=== PATIENT | female | born 1990 | race Caucasian/White ===

== ENCOUNTER 2018-02-07 06:30 | Emergency (ER) | payer OTHER, SELFPAY ==
[2018-02-07] MEDS ORDERED: ACETAMINOPHEN 500 MG TAB ONE (06:58)
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
[2018-02-07 12:13] LABS: Urine Blood NEGATIVE (NEG); Urine Glucose NEGATIVE (NEG); Urine Protein NEGATIVE (NEG); Urine Specific Gravity >1.030 (1.005-1.030); Urine pH 5.5 (5.0-7.0)
[2018-02-07 12:51] LABS: Barbiturates NEGATIVE (NEGATIVE); Benzodiazepines NEGATIVE (NEGATIVE); Cocaine POSITIVE (NEGATIVE); METHAMPHETAM NEGATIVE (NEGATIVE); Methadone NEGATIVE (NEGATIVE); Opiates NEGATIVE (NEGATIVE); Phencyclidine NEGATIVE (NEGATIVE); THC Cannibis NEGATIVE (NEGATIVE)
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
[2018-02-07] MEDS ORDERED: AZITHROMYCIN 250 MG TAB ONE (13:52)
[2018-02-07] MEDS ORDERED: CEFTRIAXONE 250 MG/VIAL ONE (13:52)
[2018-02-07] MEDS ORDERED: WATER FOR INJ,STERILE 10 ML ONE (13:53)
== END 2018-02-07 14:06 | disposition home or self-care (01) ==
LOC: ER 06:30
DX: Z04.41 Encounter for examination and observation following alleged adult rape (principal); F31.9 Bipolar disorder, unspecified; G40.909 Epilepsy, unspecified, not intractable, without status epilepticus
CPT/HCPCS: 36415; 70450; 80307; 80320; 81003; 81025; 96372; 99284; J0696

== ENCOUNTER 2018-10-04 16:03 | Emergency (ER) | payer OTHER, SELFPAY ==
--- OUTSIDE RECORDS SUMMARY | 2018-10-04 16:10 | XMS REPORT ---
:1990 [facility] Address [address] [place] [address] Dr. Sandhu. [address] [place] [id number] Care Team Providers Name Role Phone Unavailable Unavailable Unavailable Problems This patient has no known problems. Allergies, Adverse Reactions, Alerts This patient has no known allergies or adverse reactions. Medications This patient has no known medications.
[2018-10-04 17:49] LABS: Absolute Lymphocytes (CBC) 2.3 K/uL (0.7-4.9); Absolute Monocytes 0.7 K/uL (0.1-1.3); Absolute Neutrophil 5.4 K/uL (1.8-8.0); Basophils % 0.9 % (0-1.3); Eosinophils % 3.2 % (0-4.4); Hematocrit 39.6 % (36.0-45.0); Lymphocytes % 26.6 % (15.3-44.8); MPV 8.8 fL (7.6-11.3); Monocytes % 7.9 % (3.3-12.3); RBC Red Blood Cell Count 4.13 M/uL (3.86-4.86)
[2018-10-04 18:18] LABS: Urine Blood TRACE (NEG); Urine Glucose NEGATIVE (NEG); Urine Protein NEGATIVE (NEG); Urine Specific Gravity 1.025 (1.005-1.030)
[2018-10-04 18:26] LABS: BUN Blood Urea Nitrogen 13 mg/dL (7-18); Bicarbonate 27 mmol/L (21-32); Glucose Level 81 mg/dL (74-106); HCG, Quantitative 14797 mIU/mL (1-3); Potassium 3.6 mmol/L (3.5-5.1); Sodium Level 138 mmol/L (136-145)
--- NOTE | 2018-10-04 19:13 | RAD REPORT ---
EXAM DESCRIPTION: US - Matter Gordo Tm 1 - 10/04/2018 6:52 pm CLINICAL HISTORY: with abdominal pain and vaginal bleeding COMPARISON: None. FINDINGS: The uterus 8 x 4 x 4 centimeters. A gestational sac is present within the endometrium. Wi thin this is a yolk sac and pole with a crown-rump length 0.7 millimeters. Cardiac activity 138 beats per minute. Small subchorionic bleed Neither ovary was seen. An adnexal mass is not noted. No significant free fluid is seen. IMPRESSION: Single live intrauterine with an estimated gestational age 6 weeks 4 days JUAN FRANCISCO 05/26/2019 Small subchorionic bleed
--- NOTE | 2018-10-04 19:19 | EDPHYS ---
Physician Documentation [facility] Name: Gwen Cheema Age: 28 yrs Sex: Female : 1990 Arrival Date: 10/04/2018 Time: 16:09 Bed 18 Private MD: ANDREY Physician Soy Dave HPI: 10/04 19:31 This 28 yrs old Female presents to ER via Ambulatory with complaints of kb Vaginal Bleeding, + Preg <12wks. 19:31 The patient presents to the emergency department with vaginal bleeding, described as kb spotting. The estimated gestational age is 7 weeks. course: care: none, Leakage of Fluid: none appreciated, Ultrasound: the patient has not had an ultrasound, Risk/complications: no obvious risks or complications are appreciated. Previous pregnancies: in previous pregnancies patient has had. Associated signs and symptoms: Pertinent positives: vaginal bleeding. The patient has not experienced similar symptoms in the past. The patient has not recently seen a physician. Pt reports spotting yesterday after doing a lot of work, bending, reaching, etc. States she stopped bleeding at 2200 yesterday. No symptoms at this time.. 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 - Social history:: Smoking status: Patient uses tobacco products. - Ebola Screening: : No symptoms or risks identified at this time. ROS: 19:31 Constitutional: Negative for fever, chills, and weight loss, Cardiovascular: Negative kb for chest pain, palpitations, and edema, Respiratory: Negative for shortness of breath, cough, wheezing, and pleuritic chest pain, Abdomen/GI: Negative for abdominal pain, nausea, vomiting, diarrhea, and constipation, Back: Negative for injury and pain, : Negative for injury, bleeding, discharge, and swelling, MS/Extremity: Negative for injury and deformity, Skin: Negative for injury, rash, and discoloration, Neuro: Negative for headache, weakness, numbness, tingling, and seizure. Exam: 19:31 Constitutional: This is a well developed, well nourished patient who is awake, alert, kb and in no acute distress. Head/Face: Normocephalic, atraumatic. Neck: Trachea midline, no thyromegaly or masses palpated, and no cervical lymphadenopathy. Supple, full range of motion without nuchal rigidity, or vertebral point tenderness. No Meningismus. Chest/axilla: Normal chest wall appearance and motion. Nontender with no deformity. No lesions are appreciated. Cardiovascular: Regular rate and rhythm with a normal S1 and S2. No gallops, murmurs, or rubs. Normal PMI, no JVD. No pulse deficits. Respiratory: Lungs have equal breath sounds bilaterally, clear to auscultation and percussion. No rales, rhonchi or wheezes noted. No increased work of breathing, no retractions or nasal flaring. Abdomen/GI: Soft, non-tender, with normal bowel sounds. No distension or tympany. No guarding or rebound. No evidence of tenderness throughout. Skin: Warm, dry with normal turgor. Normal color with no rashes, no lesions, and no evidence of cellulitis. MS/ Extremity: Pulses equal, no cyanosis. Neurovascular intact. Full, normal range of motion. Neuro: Awake and alert, GCS 15, oriented to person, place, time, and situation. Cranial nerves II-XII grossly intact. Motor strength 5/5 in all extremities. Sensory grossly intact. Cerebellar exam normal. Normal gait. Vital Signs: 16:11 BP 123 / 67; Pulse 82; Resp 17; Temp 98.1; Pulse Ox 100% on R/A; Weight 44.91 kg; aj Height 5 ft. 5 in. (165.10 cm); 18:37 BP 111 / 80; Pulse 64; Resp 17; Pulse Ox 99% on R/A; jb1 19:20 BP 115 / 83; Pulse 67; Resp 16 S; Temp 98.4(O); Pulse Ox 100% on R/A; cc3 16:11 Body Mass Index 16.47 (44.91 kg, 165.10 cm) aj MDM: 17:05 Patient medically screened. kb 19:18 Data reviewed: vital signs, nurses notes. Data interpreted: Pulse oximetry: on room air kb is 99 %. Interpretation: normal. Counseling: I had a detailed discussion with the patient and/or guardian regarding: the historical points, exam findings, and any diagnostic results supporting the discharge/admit diagnosis, lab results, radiology results, the need for outpatient follow up, a family practitioner, an OB/Gyne specialist, to return to the emergency department if symptoms worsen or persist or if there are any questions or concerns that arise at home. 10/04 17:17 Order name: Quantitative Hcg; Complete Time: 18:26 kb 10/04 17:17 Order name: Abo/rh Typing; Complete Time: 18:52 kb 10/04 17:17 Order name: Basic Metabolic Panel; Complete Time: 18:26 kb 10/04 17:17 Order name: CBC with Diff; Complete Time: 17:59 kb 10/04 17:51 Order name: Urine Dipstick--Ancillary (enter results); Complete Time: 18:20 bd 10/04 17:51 Order name: Urine --Ancillary (enter results); Complete Time: 18:20 bd 10/04 17:17 Order name: Urine Test (obtain specimen); Complete Time: 17:45 kb 10/04 17:17 Order name: IV Saline Lock; Complete Time: 17:45 kb 10/04 17:17 Order name: Labs collected and sent; Complete Time: 17:45 kb 10/04 17:17 Order name: NPO; Complete Time: 17:45 kb 10/04 17:17 Order name: Urine Dipstick-Ancillary (obtain specimen); Complete Time: 17:45 kb 10/04 18:53 Order name: Matter Eval Tm 1; Complete Time: 19:18 EDMS Administered Medications: No medications were administered Disposition: 10/04/18 19:19 Discharged to Home. Impression: Less than 8 weeks gestation of , Threatened . - Condition is Stable. - Discharge Instructions: First Trimester of , [id number], Threatened Miscarriage, [id number]. - Medication Reconciliation Form, Thank You Letter, Antibiotic Education, Prescription Opioid Use, Work release form form. - Follow up: Emergency Department; When: As needed; Reason: Worsening of condition. Follow up: Private Physician; When: 2 - 3 days; Reason: Recheck today's complaints, Continuance of care, Re-evaluation by your physician. Signatures: Dispatcher [employer] EDOH Nicolasa Akins, CLEAN IN PLACES OPERATOR-C CLEAN IN PLACES OPERATOR-Ckb Arabella Barros, RN RN Yesenia Rodriguez RN RN Alis Field cc3 Corrections: (The following items were deleted from the chart) 18:53 18:30 Transvaginal Ob+US.RAD.BRZ ordered. [facility] 19:48 19:19 10/04/2018 19:19 Discharged to Home. Impression: Less than 8 weeks gestation of cc3 ; Threatened . Condition is Stable. Forms are Medication Reconciliation Form, Thank You Letter, Antibiotic Education, Prescription Opioid Use. Follow up: Emergency Department; When: As needed; Reason: Worsening of condition. Follow up: Private Physician; When: 2 - 3 days; Reason: Recheck today's complaints, Continuance of care, Re-evaluation by your physician. kb
--- NOTE | 2018-10-04 19:19 | ER ---
Nurse's Notes [facility] Name: Gwen Cheema Age: 28 yrs Sex: Female : 1990 Arrival Date: 10/04/2018 Time: 16:09 Bed 18 Private MD: Diagnosis: Less than 8 weeks gestation of ;Threatened Presentation: 10/04 16:10 Presenting complaint: Patient states: Vaginal spotting that stopped this AM. Patient aj states "I need a work note.". Transition of care: patient was not received from another setting of care. Onset of symptoms was October 04, 2018. Care prior to arrival: None. 16:10 Method Of Arrival: Ambulatory aj 16:10 Acuity: MIS 3 aj 17:35 Risk Assessment: Do you want to hurt yourself or someone else? Patient reports no sv desire to harm self or others. Initial Sepsis Screen: Does the patient meet any 2 criteria? No. Patient's initial sepsis screen is negative. Does the patient have a suspected source of infection? No. Patient's initial sepsis screen is negative. Triage Assessment: 16:11 General: Appears in no apparent distress. comfortable, Behavior is calm, cooperative. aj Pain: Denies pain. Neuro: Level of Consciousness is awake, alert, obeys commands, Oriented to person, place, time, situation, Appropriate for age. Respiratory: Airway is patent Respiratory effort is even, unlabored, Respiratory pattern is regular, symmetrical. : No signs and/or symptoms were reported regarding the genitourinary system. : Reports vaginal bleeding that is spotty. Derm: Skin is intact, is healthy with good turgor, Skin is pink, warm \\T\\ dry. normal. 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 - Social history:: Smoking status: Patient uses tobacco products. - Ebola Screening: : No symptoms or risks identified at this time. Screenin:35 Abuse screen: Denies threats or abuse. Denies injuries from another. Nutritional sv screening: No deficits noted. Tuberculosis screening: No symptoms or risk factors identified. Fall Risk None identified. Assessment: 17:30 General: Appears in no apparent distress. comfortable, slender, well developed, sv Behavior is calm, cooperative, appropriate for age. Pain: Denies pain. Neuro: Level of Consciousness is awake, alert, obeys commands, Oriented to person, place, time, situation, Moves all extremities. Full function Gait is steady. Respiratory: Respiratory effort is even, unlabored, Respiratory pattern is regular, symmetrical. : Reports vaginal bleeding that is spotty, since yesterday'. Derm: Skin is pink, warm \\T\\ dry. Musculoskeletal: Range of motion: intact in all extremities. 19:10 Reassessment: Patient appears in no apparent distress at this time. Patient and/or cc3 family updated on plan of care and expected duration. Pain level reassessed. Patient is alert, oriented x 3, equal unlabored respirations, skin warm/dry/pink. 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 With IV cannula gauge 20 at the right ACV saline locked. Patient denies pain at this time. Patient states feeling better. Patient states symptoms have improved. 19:30 Reassessment: Patient appears in no apparent distress at this time. Patient and/or cc3 family updated on plan of care and expected duration. Pain level reassessed. Patient is alert, oriented x 3, equal unlabored respirations, skin warm/dry/pink. SARA Akins discharged the patient home, no prescription given. IV cannula removed and patient left ER vitally stable and ambulatory with her family. Patient denies pain at this time. Patient states feeling better. Patient states symptoms have improved. Vital Signs: 16:11 BP 123 / 67; Pulse 82; Resp 17; Temp 98.1; Pulse Ox 100% on R/A; Weight 44.91 kg; aj Height 5 ft. 5 in. (165.10 cm); 18:37 BP 111 / 80; Pulse 64; Resp 17; Pulse Ox 99% on R/A; jb1 19:20 BP 115 / 83; Pulse 67; Resp 16 S; Temp 98.4(O); Pulse Ox 100% on R/A; cc3 16:11 Body Mass Index 16.47 (44.91 kg, 165.10 cm) ED Course: 16:09 Patient arrived in ED. tw3 16:11 Triage completed. aj 16:11 Arm band placed on left wrist. aj 17:05 Nicolasa Akins FNP-C [facility]. kb 17:05 Soy Dave MD is Attending Physician. kb 17:17 Arabella Barros, RN is Primary Nurse. sv 17:35 Patient has correct armband on for positive identification. Bed in low position. Call sv light in reach. Door closed. Head of bed. 17:35 Initial lab(s) drawn, by me, sent to lab. Inserted saline lock: 20 gauge in right sv antecubital area, using aseptic technique. Blood collected. Flushed right antecubital with 5 ml normal saline. 17:44 Urine collected: clean catch specimen, clear. sv 18:52 Ultrasound completed. hr 18:53 Matter Eval Tm 1 In Process Unspecified. EDMS 19:09 Report given to Alis GALINDO. sv 19:30 No provider procedures requiring assistance completed. IV discontinued, intact, cc3 bleeding controlled, No redness/swelling at site. Pressure dressing applied. 19:33 Primary Nurse role handed off by Arabella Barros RN Administered Medications: No medications were administered Outcome: 19:19 Discharge ordered by . kb 19:30 Discharged to home ambulatory, with family. cc3 19:30 Condition: stable 19:30 Discharge instructions given to patient, Instructed on discharge instructions, follow up and referral plans. Demonstrated understanding of instructions, follow-up care. 19:48 Patient left the ED. cc3 Signatures: Dispatcher [employer] EDMS Boogie Butler jb1 Nicolasa Akins FNP-C FNP-Arabella Treadwell RN Yesenia Graves RN RN aj Rod, Haley hr Wade, Tia tw3 Alis Key cc3 Corrections: (The following items were deleted from the chart) 0611 02:18 06/10 19:10 Reassessment: Patient appears in no apparent distress at this time. Patient cc3 and/or family updated on plan of care and expected duration. Pain level reassessed. Patient is alert, oriented x 3, equal unlabored respirations, skin warm/dry/pink. Received this female patient from morning shift MATEO Bell as a case of vaginal bleeding but no active bleeding right now. With IV cannula gauge 20 at the right ACV saline locked. Patient denies pain at this time. Patient states feeling better. Patient states symptoms have improved. cc3
== END 2018-10-04 19:48 | disposition home or self-care (01) ==
LOC: ER 16:03
DX: O20.0 Threatened abortion (principal); Z3A.01 Less than 8 weeks gestation of pregnancy
CPT/HCPCS: 36415; 76801; 80048; 81003; 81025; 84702; 85025; 86900; 86901; 99284

== ENCOUNTER 2018-11-01 22:21 | Emergency (ER) | payer OTHER ==
--- OUTSIDE RECORDS SUMMARY | 2018-11-01 22:22 | XMS REPORT ---
:1990 Author Organization [facility] Address [address] [place] [address] Dr. Sandhu[address] [place] [id number] Care Team Providers Name Role Phone Unavailable Unavailable Unavailable Problems This patient has no known problems. Allergies, Adverse Reactions, Alerts This patient has no known allergies or adverse reactions. Medications This patient has no known medications.
[2018-11-01] MEDS ORDERED: LIDOCAINE 1% MPF 5 ML VIAL ONE (23:29)
--- NOTE | 2018-11-02 00:12 | ER ---
Nurse's Notes [facility] Name: Gwen Cheema Age: 28 yrs Sex: Female : 1990 Arrival Date: 11/01/2018 Time: 22:24 Bed 24 [facility] MD: Diagnosis: Cutaneous abscess of buttock Presentation: 11/01 22:49 Presenting complaint: Patient states: abcess on my butt cheek since 4 days ago, and I ca1 am 10 wks . Transition of care: patient was not received from another setting of care. Onset of symptoms was November 01, 2018. Risk Assessment: Do you want to hurt yourself or someone else? Patient reports no desire to harm self or others. Initial Sepsis Screen: Does the patient meet any 2 criteria? No. Patient's initial sepsis screen is negative. Does the patient have a suspected source of infection? No. Patient's initial sepsis screen is negative. Care prior to arrival: None. 22:49 Method Of Arrival: Ambulatory ca1 22:49 Acuity: MIS 3 ca1 Triage Assessment: 22:52 General: Appears in no apparent distress. comfortable, Behavior is calm, cooperative, ca1 appropriate for age. Pain: Complains of pain in left gluteus flaco Pain currently is 7 out of 10 on a pain scale. Pain began 2-3 days ago. 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 - Social history:: Smoking status: Patient uses tobacco products, smokes one-half pack cigarettes per day. - Ebola Screening: : Patient negative for fever greater than or equal to 101.5 degrees Fahrenheit, and additional compatible Ebola Virus Disease symptoms Patient denies exposure to infectious person Patient denies travel to an Ebola-affected area in the 21 days before illness onset No symptoms or risks identified at this time. - Family history:: not pertinent. - Hospitalizations: : No recent hospitalization is reported. Screenin:54 Abuse screen: Denies threats or abuse. Denies injuries from another. Nutritional ca1 screening: No deficits noted. Tuberculosis screening: No symptoms or risk factors identified. Fall Risk None identified. Assessment: 22:54 General: Appears in no apparent distress. comfortable, Behavior is calm, cooperative, ca1 appropriate for age. Pain: Complains of pain in left gluteus flaco Pain currently is 7 out of 10 on a pain scale. Pain began 2-3 days ago. Neuro: Level of Consciousness is awake, alert, obeys commands, Oriented to person, place, time, situation, Appropriate for age. Cardiovascular: Heart tones S1 S2 present Capillary refill < 3 seconds Patient's skin is warm and dry. Respiratory: Airway is patent Respiratory effort is even, unlabored, Respiratory pattern is regular, symmetrical, Breath sounds are clear bilaterally. GI: Abdomen is flat, non-distended, Bowel sounds present X 4 quads. Abd is soft and non tender X 4 quads. : No deficits noted. No signs and/or symptoms were reported regarding the genitourinary system. EENT: No deficits noted. No signs and/or symptoms were reported regarding the EENT system. Derm: Skin is intact, is healthy with good turgor, Skin is pink, warm \T\ dry. Musculoskeletal: Circulation, motion, and sensation intact. Capillary refill < 3 seconds, Range of motion: intact in all extremities. 11/02 00:02 Reassessment: Patient appears in no apparent distress at this time. Patient is alert, ca1 oriented x 3, equal unlabored respirations, skin warm/dry/pink. Vital Signs: 11/01 22:52 BP 124 / 85; Pulse 87; Resp 18 S; Temp 98.5(O); Pulse Ox 100% on R/A; Weight 49.9 kg ca1 (R); Height 5 ft. 5 in. (165.10 cm) (R); Pain 7/10; 11/02 00:02 BP 113 / 73; Pulse 81; Resp 16 S; Temp 97.9(TE); Pulse Ox 100% on R/A; ca1 11/01 22:52 Body Mass Index 18.30 (49.90 kg, 165.10 cm) ca1 ED Course: 11/01 22:24 Patient arrived in ED. ag3 22:39 Paul Floyd, MATEO is Primary Nurse. rv 22:41 Nabil Lopez MD is Attending Physician. rn 22:51 Triage completed. ca1 22:52 Arm band placed on right wrist. ca1 22:54 Patient has correct armband on for positive identification. Placed in gown. Bed in low ca1 position. Call light in reach. Side rails up X 1. Pulse ox on. NIBP on. Warm blanket given. 22:57 Primary Nurse role handed off by Paul Floyd RN ca1 22:57 Radha Fishman RN is Primary Nurse. ca1 11/02 00:04 Assist provider with I \T\ D: of an abscess on left Gluteal area Set up I\T\D tray. ca 1 Performed by Nabil Lopez MD Culture sent to lab. Wound packed. iodoform gauze, Dressing with 4X4s, tape Patient tolerated well. Patient did not have IV access during this emergency room visit. 00:17 Wound Culture Sent. ca1 Administered Medications: 00:03 Drug: Lidocaine (1 %) 1 vials {Note: Infiltrated by Dr. Lopez.} Volume: 5 ml; Route: ca1 Infiltration; Outcome: 00:08 Discharge ordered by . rn 00:18 Discharged to home ambulatory, with significant other. ca1 00:18 Condition: stable 00:18 Discharge instructions given to patient, Instructed on discharge instructions, follow up and referral plans. medication usage, Demonstrated understanding of instructions, follow-up care, medications, Prescriptions given X 1. 00:18 Patient left the ED. ca1 Signatures: Nabil Lopez MD MD rn Vicente, Ronaldo, RN RN Lissett Sequeira 3 Radha Fishman RN RN ca1 Corrections: (The following items were deleted from the chart) 11/01 22:58 22:49 Presenting complaint: Patient states: I have abcess on my but cheek since 4 days ca1 ago ca1
--- NOTE | 2018-11-02 00:12 | EDPHYS ---
Physician Documentation [facility] Name: Gwen Cheema Age: 28 yrs Sex: Female : 1990 Arrival Date: 11/01/2018 Time: 22:24 Bed 24 Private MD: ED Physician Nabil Lopez HPI: 11/02 00:03 This 28 yrs old Female presents to ER via Ambulatory with complaints of rn Abscess. 00:03 The patient presents with an abscess of the buttocks. Description: erythematous, rn fluctuant, swollen, warm. 00:04 Onset: The symptoms/episode began/occurred 4 day(s) ago. Possible cause(s): unknown. rn Associated signs and symptoms: Pertinent positives: swelling, Pertinent negatives: fever. Modifying factors: the symptoms are alleviated by nothing, the symptoms are aggravated by squeezing the lesion and expressing the contents, touching. Severity of symptoms: At their worst the symptoms were moderate, in the emergency department the symptoms are unchanged. The patient has not experienced similar symptoms in the past. Reports swelling to left buttocks, getting worse, not able to pop it on her own, no fever, is 10 weeks .. 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 - Social history:: Smoking status: Patient uses tobacco products, smokes one-half pack cigarettes per day. - Ebola Screening: : Patient negative for fever greater than or equal to 101.5 degrees Fahrenheit, and additional compatible Ebola Virus Disease symptoms Patient denies exposure to infectious person Patient denies travel to an Ebola-affected area in the 21 days before illness onset No symptoms or risks identified at this time. - Family history:: not pertinent. - Hospitalizations: : No recent hospitalization is reported. ROS: 11/02 00:04 Constitutional: Negative for fever, chills, and weight loss, Skin: + abscess to left rn buttocks Exam: 00:04 Constitutional: This is a well developed, well nourished patient who is awake, alert, rn and in no acute distress. Skin: Warm, dry, + 3cm area of fluctuance and erythema, no surrounding cellulitis. MS/ Extremity: Pulses equal, no cyanosis. Neurovascular intact. Full, normal range of motion. Equal circumference. Vital Signs: 11/01 22:52 BP 124 / 85; Pulse 87; Resp 18 S; Temp 98.5(O); Pulse Ox 100% on R/A; Weight 49.9 kg ca1 (R); Height 5 ft. 5 in. (165.10 cm) (R); Pain 7/10; 11/02 00:02 BP 113 / 73; Pulse 81; Resp 16 S; Temp 97.9(TE); Pulse Ox 100% on R/A; ca1 11/01 22:52 Body Mass Index 18.30 (49.90 kg, 165.10 cm) ca1 Procedures: 00:04 I \T\ D: Incision and drainage was performed for an abscess of the left buttocks Prepped rn with Betadine, Anesthetized with 5 ml's 1% Lidocaine w/ Epi. Incised with #10 blade. Drained moderate amount purulent fluid. Packed with iodoform gauze, Dressing: sterile 4x4 gauze, the patient tolerated the procedure well. MDM: 11/01 22:41 Patient medically screened. rn 11/02 00:04 Differential diagnosis: abscess. Data reviewed: vital signs, nurses notes, and as a rn result, I will discharge patient. 00:07 Counseling: I had a detailed discussion with the patient and/or guardian regarding: the rn historical points, exam findings, and any diagnostic results supporting the discharge/admit diagnosis, the need for outpatient follow up, to return to the emergency department if symptoms worsen or persist or if there are any questions or concerns that arise at home. Response to treatment: the patient's symptoms have markedly improved after treatment, and as a result, I will discharge patient. Special discussion: I discussed with the patient/guardian in detail that at this point there is no indication for admission to the hospital. It is understood, however, that if the symptoms persist or worsen the patient needs to return immediately for re-evaluation. 11/02 00:05 Order name: Wound Culture ca1 11/01 23:30 Order name: Incision \T\ Drainage Setup; Complete Time: 23:31 rn Administered Medications: 00:03 Drug: Lidocaine (1 %) 1 vials {Note: Infiltrated by Dr. Lopez.} Volume: 5 ml; Route: ca1 Infiltration; Disposition: 11/02/18 00:08 Discharged to Home. Impression: Cutaneous abscess of buttock. - Condition is Stable. - Discharge Instructions: Skin Abscess, Incision and Drainage, Wound Packing. - Prescriptions for Keflex 500 mg Oral Capsule - take 1 capsule by ORAL route every 12 hours for 10 days; 20 capsule. - Medication Reconciliation Form, Thank You Letter, Antibiotic Education, Prescription Opioid Use form. - Follow up: Private Physician; When: As needed; Reason: Recheck today's complaints, Re-evaluation by your physician. - Problem is new. - Symptoms have improved. Signatures: Dispatcher [employer] EDNabil Henry MD MD rn Acob, MATEO Garcia RN ca1 Corrections: (The following items were deleted from the chart) 00:18 00:08 11/02/2018 00:08 Discharged to Home. Impression: Cutaneous abscess of buttock. ca1 Condition is Stable. Forms are Medication Reconciliation Form, Thank You Letter, Antibiotic Education, Prescription Opioid Use. Follow up: Private Physician; When: As needed; Reason: Recheck today's complaints, Re-evaluation by your physician. Problem is new. Symptoms have improved. rn
== END 2018-11-02 00:18 | disposition home or self-care (01) ==
LOC: ER 22:21
PROC: 0J990ZZ Drainage of Buttock Subcutaneous Tissue and Fascia, Open Approach (ICD-10-PCS; principal; 2018-11-01)
DX: O26.891 Other specified pregnancy related conditions, first trimester (principal); L02.31 Cutaneous abscess of buttock; O99.341 Other mental disorders complicating pregnancy, first trimester; F31.9 Bipolar disorder, unspecified; F41.9 Anxiety disorder, unspecified; Z3A.10 10 weeks gestation of pregnancy
CPT/HCPCS: 87070; 87205; 99284

== ENCOUNTER 2021-10-09 22:22 | Emergency (ER) | payer OTHER ==
--- OUTSIDE RECORDS SUMMARY | 2021-10-09 22:26 | XMS REPORT | Continuity of Care Document ---
:1990 Author Organization [facility] t Address [address] [place] [address] Care Team Providers Name Role Phone Akhil MCMAHON Primary Care Physician Unavailable SANDY LYLE Attending Clinician Unavailable AMAYA, S Attending Clinician Unavailable Amaya PAC, S Attending Clinician Doctor Unassigned, Name Attending Clinician Unavailable HORTENCIA Attending Clinician Unavailable Opal BRADLEY Attending Clinician Unavailable BERTHA Attending Clinician Unavailable MATTHEW NELSON Attending Clinician Unavailable MARIA ALEJANDRA DONG Attending Clinician Unavailable Briana WORKMAN Attending Clinician Unavailable Yoni CLARK Attending Clinician Unavailable Opal THRASHER Attending Clinician Unavailable Vinay PEREZ Attending Clinician Unavailable Vinay PEREZ Attending Clinician Unavailable Oma CABRERA Attending Clinician Unavailable JUANIS MORRISON Attending Clinician Unavailable Vinay GLOVER Attending Clinician Unavailable SANDY LYLE Admitting Clinician Unavailable AMAYA, S Admitting Clinician Unavailable BERTHA Admitting Clinician Unavailable JI S Admitting Clinician Unavailable Payers Payer Name Policy Type Policy Number Effective Date Expiration Date Briana álvarez [place] [facility] [id number] 2020 HEALTH 00:00:00 [facility] [id number] 2019 WOMEN 00:00:00 [facility] [id number] 2018 CHOICE MEDICAID 00:00:00 Problems Condition Condition Condition Status Onset Resolution Last Treating Co mments Source Name Details Category Date Date Treatment Clinician Date Infection Infection Disease Active Uni vers of hand of hand 8-18 ity of due to due to 00:00: [place] bite bite Medical Branch Gastroesop Gastroesop Disease Active 2018-04 U nivers hageal hageal 2-05 ity of reflux reflux 00:00: [place] disease disease 00 Medical without without Branch esophagiti esophagiti s s Abnormal Abnormal Disease Active 2018-04 Unive rs maternal maternal 1-08 ity of glucose glucose 00:00: [place] tolerance, tolerance, 00 Me dical antepartum antepartum Br anch Underweigh Underweigh Disease Active U nivers t t 9 ity of 00:00: Medical Branch History of History of Disease Active U nivers bipolar bipolar 9 ity of disorder disorder 00:00: [place] Medical [facility] Polysubsta Polysubsta Disease Active U nivers nce abuse nce abuse 01-17 ity of 00:00: Medical Branch PTSD PTSD Disease Active Univers (post-trau (post-trau 01-17 it y of matic matic 00:00: [place] stress stress Medical disorder) disorder) Bran ch Trichomona Trichomona Disease Active U nivers l l 7- ity of vulvovagin vul[place]agin [place] Hepatitis Hepatitis Disease Active Overview: Univers C antibody C antibody 7 Formattin ity of test test 00:00: g of this [place] positive positive 00 note Medica l might be Branch different from the original. PCR negative Multiparit Multiparit Disease Active 2019 U nivers y y 6- ity of 00:00: Medical Branch Eating Eating Disease Active Univers disorder disorder 10-22 ity of 00:00: Medical Branch Anxiety Anxiety Disease Active Univers and and 10-22 ity of depression [place] Lost Lost Disease Active Univers custody of custody of 10-22 it y of children children 00:00: [place] 00 Medical Branch History of History of Disease Active U nivers seizures seizures - ity of 00:00: 00 Medical Branch Allergies, Adverse Reactions, Alerts Allergy Allergy Status Severity Reaction(s) Onset Inactive Treating Comm ents Source Name Type Date Date Clinician Wilfrid Propensi Active Hallucinatio Univers one ty to ns 1-10 ity of Mesylate adverse 00:00: [place] reaction 00 Medical s Branch Risperid Propensi Active Hallucinatio Univers one ty to ns 1-10 ity of adverse 00:00: [place] reaction 00 Medical s Branch ZIPRASID DRUG Active Hallucinates Un [place] ONE INGREDI 1-10 ity of MESYLATE 00:00: [place] 00 Medical Branch RISPERID DRUG Active Hallucinates Un [place] ONE INGREDI 1-10 ity of 00:00: [place] 00 Medical Branch NO KNOWN Drug Active Univers ALLERGIE Class ity of [facility] Social History Social Habit Start Date Stop Date Quantity Comments Source History of 2001-10-22 Cigarette Smoker Universi ty of tobacco use 00:00:00 [place] [facility] History SDKY University o f Alcohol Std [place] Medical Drinks Branch History [facility] University o f Alcohol Binge [place] Medic al Branch History [facility] University o f Alcohol Comment [place] Med ical Branch Exposure to 2021-09-13 2021-09-23 Unable to assess Univers ity of SARS-CoV-2 00:00:00 12:59:00 [facility] (event) Branch Alcohol intake 2021-09-23 2021-09-23 0 /d University of 00:00:00 00:00:00 [facility] [place] [facility] History SDOH 2018-10-22 2018-10-22 1 University o f Alcohol Frequency 00:00:00 00:00:00 [facility] [place] [facility] edical [place] Sex [birth year] Universit y of 00:00:00 00:00:00 [facility] [place] [facility] Smoking Status Start Date Stop Date Source Current every day smoker Univers ity of [facility] [place] [facility] Medications Ordered Filled Start Stop Current Ordering Indication Dosage Frequency Signature Comments Components Source Medication Medication Date Date Medication? Clinician (SIG) Name Name ketorolac 30mg 30 mg, Unive rs (TORADOL) 530 30 Slow IV ity of injection 20:30: 19:44 Push, [place] 30 mg 00 :00 ONCE, 1 Medical dose, On Branch 09/23/21 at 1530, JENNIFER
Fa culty member approving Restricted medication : TIMOTEO AMAYA iopamidol 2021- No [id number] 100mL 100 mL, Univers (ISOVUE 5-30 -30 Intravenou ity o f 370-500 mL) 20:00: 20:15 s, ONCE, 1 [place] injection 00 :00 dose, On Medica l 100 mL [facility] 09/23/21 at 1515, Routine ondansetron 2021- No 4mg 4 mg, Slow Univers (ZOFRAN 09-23-30 IV Push, ity of (PF)) 19:45: 19:43 ONCE, 1 [place] injection 4 00 :00 dose, On Medi erick mg [facility] Branch 09/23/21 at 1445, JENNIFER No known No Univers medications 5-30 ity of 13:33: [address] No known No Univers medications 1-27 ity of 18:00: [place] 03 [facility] Immunizations Ordered Filled Immunization Date Status Comments [facility] e Immunization Name Name TDAP (ADACEL) 2019-03-10 Completed University of VACCINE 00:00:00 [facility] [place] [facility] TDAP (ADACEL) 2019-03-10 Completed University of VACCINE 00:00:00 [facility] [place] [facility] MMR 2012-11-22 Completed University of 00:00:00 [facility] [place] [facility] MMR 2012-11-22 Completed University of 00:00:00 [facility] [place] [facility] HEPATITIS A 2012-10-19 Completed University of 00:00:00 [facility] [place] [facility] MMR 2012-10-19 Completed University of 00:00:00 [facility] [place] [facility] HEPATITIS A 2012-10-19 Completed University of 00:00:00 [facility] [place] [facility] MMR 2012-10-19 Completed University of 00:00:00 [facility] [place] [facility] Vital Signs Vital Name Observation Time Observation Value Comments Source Systolic blood 2021-09-23 23:07:54 117 mm[Hg] Univer sity of pressure [facility] [place] [facility] Diastolic blood 2021-09-23 23:07:54 80 mm[Hg] Unive rsity of pressure [facility] [place] [facility] Heart rate 2021-09-23 23:07:54 78 /min Universi ty of [facility] [place] [facility] Respiratory rate 2021-09-23 23:07:54 18 /min Univ ersity of [facility] [place] [facility] Oxygen saturation in 2021-09-23 23:07:54 98 /min [facility] blood by [facility] Pulse oximetry Branch Body temperature 2021-09-23 18:10:00 36.94 [facility] Body height 2021-09-23 18:10:00 165.1 cm [facility] Body weight 2021-09-23 18:10:00 49.896 kg [facility] BMI 2021-09-23 18:10:00 18.30 kg/m2 [facility] Procedures Procedure Date / Time Performing Clinician Source Performed US PELVIS COMPLETE WITH 2021-09-23 22:52:01 Timoteo Amaya [facility] TRANSVAGINAL [facility] CT ABDOMEN PELVIS W 2021-09-23 20:02:13 Timoteo Amaya [facility] CONTRAST [facility] COMP. METABOLIC PANEL 2021-09-23 19:12:00 Timoteo Amaya [facility] ([id number]) [facility] CBC WITH DIFF 2021-09-23 19:12:00 Timoteo Amaya [facility] POCT TEST 2021-09-23 18:47:00 Timoteo Amaya [facility] URINALYSIS 2021-09-23 18:41:00 Timoteo Amaya [facility] NOTICE OF PRIVACY 2021-09-23 17:59:15 Doctor Unassigned, No [facility] PRACTICES Name [facility] Branch CONSENT/REFUSAL FOR 2021-09-23 17:59:01 Doctor Unassigned, No [facility] DIAGNOSIS AND TREATMENT Name [facility] Encounters Start End Encounter Admission Attending Care Care Encounter Source Date/Time Date/Time Type Type Clinicians Facility Department ID 2021-02-23 Emergency [facility] [id number] Univers 16:17:01 [facility] 2021-02-22 Emergency X HARMAN LYLE SPL [id number] Univers 13:07:11 YANICK [facility] 2021-09-23 2021-09-23 Emergency X HARMAN AMAYA ERT [id number] Univers 13:12:00 18:47:00 TIMOTEO [facility] 2021-09-23 2021-09-23 Emergency HARMAN Amaya [id number] Univers 13:12:00 18:47:00 Timoteo JEREZ [id number] i ty of [facility] [id number] [id number] [facility] 084 Branch 2021-09-23 2021-09-23 Orders Doctor HEATHER [id number] Univers 00:00:00 00:00:00 Only Unassigned, LILIAN [id number] ity [facility] [id number] [place] [id number] [facility] 009 Branch 2021-01-03 2021-01-03 Outpatient Opal BURNETT [facility] [id number] Univers 15:45:00 15:45:00 KAREN [facility] 2021-01-03 2021-01-03 Outpatient Opal BURNETT [facility] [id number] Univers 15:30:00 15:30:00 KAREN [id number] ity [facility] [place] [facility] 2020-08-09 2020-08-09 Outpatient HORTENCIA [facility] [id number] Univers 11:15:00 11:15:00 KAREN [id number] [facility] 2020-08-09 2020-08-09 Outpatient Opal BURNETT [facility] [id number] Univers 00:00:00 00:00:00 KAREN [facility] 2020-06-18 2020-06-18 Outpatient R [facility] [id number] Univers 10:00:00 10:00:00 [id number] ity [facility] [place] [facility] 2020-06-18 2020-06-18 Outpatient R [facility] [id number] Univers 10:00:00 10:00:00 ity [facility] [place] [facility] 2020-05-23 2020-05-23 Outpatient R HORTENCIA [facility] [id number] Univers 14:45:00 14:45:00 KAREN [facility] 2020-05-23 2020-05-23 Outpatient Opal BURNETT [facility] [id number] Univers 14:45:00 14:45:00 KAREN [id number] ity [facility] [place] [facility] 2020-05-15 2020-05-15 Outpatient R [facility] [id number] Univers 13:00:00 13:00:00 [id number] ity [facility] [place] [facility] 2020-05-15 2020-05-15 Outpatient R [facility] [id number] Univers 13:00:00 13:00:00 ity [facility] [place] [facility] 2020-05-11 2020-05-11 Outpatient R [facility] [id number] Univers 13:30:00 13:30:00 [id number] ity [facility] [place] [facility] 2020-05-11 2020-05-11 Outpatient R [facility] [id number] Univers 13:30:00 13:30:00 ity [facility] [place] [facility] 2020-05-09 2020-05-09 Outpatient R HORTENCIA, [facility] [id number] Univers 10:30:00 10:30:00 KAREN [id number] [facility] 2020-05-09 2020-05-09 Outpatient R HORTENCIA, [facility] [id number] Univers 10:30:00 10:30:00 KAREN [facility] 2020-04-04 2020-04-04 Outpatient KIRK [facility] [id number] Univers 09:45:00 09:45:00 BRYN [id number] ity o f [facility] [place] [facility] 2020-04-04 2020-04-04 Outpatient Opal BRADLEY [facility] [id number] Univers 09:45:00 09:45:00 JOSEHUNDA ity o f [facility] [place] [facility] 2019-12-28 2019-12-28 Outpatient Opal LYLE [facility] [id number] Univers 09:15:00 09:15:00 YANICK ity [facility] [place] [facility] 2019-12-28 2019-12-28 Outpatient Opal LYLE [facility] [id number] Univers 09:15:00 09:15:00 [facility]ICK [facility] 2019-12-28 2019-12-28 Outpatient FERLAMAR_CLAUDY GUILLEN [facility] [id number] [place] 05:38:[place] 05:38[place] [id number] [facility] 2019-12-09 2019-12-09 Outpatient JESUS GUILLEN [facility] [id number] [place] 09:26:00 09:26:00 [place] [id number] [facility] 2019-08-04 2019-08-04 Outpatient R [facility] [id number] Univers 13:30:00 13:30:00 [id number] ity [facility] [place] [facility] 2019-08-04 2019-08-04 Outpatient R [facility] [id number] Univers 13:30:00 13:30:00 ity [facility] [place] [facility] 2019-07-25 2019-07-25 Outpatient R AMIRA [facility] [id number] Univers 08:00:00 08:00:00 RENUKA Hauser [facility] 2019-07-18 2019-07-18 Outpatient R [facility] [id number] Univers 14:00:00 14:00:00 [id number] ity [facility] [place] [facility] 2019-07-18 2019-07-18 Outpatient R [facility] [id number] Univers 14:00:00 14:00:00 ity [facility] [place] [facility] 2019-07-18 2019-07-18 Outpatient R AMIRA [facility] [id number] Univers 10:00:00 10:00:00 RENUKA Hauser [facility] 2019-07-11 2019-07-11 Outpatient R [facility] [id number] Univers 15:00:00 15:00:00 [id number] ity [facility] [place] [facility] 2019-07-11 2019-07-11 Outpatient R JESSE DONG [facility] [id number] Univers 15:00:00 15:00:00 [facility] 2019-06-20 2019-06-20 Outpatient R HORTENCIA, [facility] [id number] Univers 11:00:00 11:00:00 KAREN [facility] 2019-05-19 2019-05-19 Outpatient R [facility] [id number] Univers 11:30:00 11:30:00 [id number] ity [facility] [place] [facility] 2019-05-12 2019-05-12 Outpatient R [facility] [id number] Univers 11:30:00 11:30:00 [id number] [facility] 2019-05-10 2019-05-10 Outpatient R CARL WORKMAN [facility] [id number] Univers 08:56:42 23:59:00 [facility] 2019-05-05 2019-05-05 Outpatient R [facility] [id number] Univers 11:30:00 11:30:00 [facility] 2019-04-28 2019-04-28 Outpatient P EDUARDO [facility] [id number] Univers 14:00:00 14:00:00 AMNA [facility] 2019-04-18 2019-04-18 Outpatient P ANNA MARIE [facility] [id number] Univers 15:00:00 16:35:19 RUSTAM [facility] 2019-04-14 2019-04-14 Outpatient P ISRAEL PEREZ [facility] [id number] Univers 15:30:00 16:09:05 ISRAEL PEREZ [facility] 2019-04-07 2019-04-07 Outpatient P DEBORAH [facility] [id number] Univers 09:30:00 14:57:02 LENNOX [facility] 2019-01-27 2019-01-27 Outpatient P ANNA MARIE [facility] [id number] Univers 15:00:00 15:00:00 RUSTAM [facility] 2019-01-26 2019-01-26 Outpatient P MORRISON [facility] [id number] Univers 14:30:00 14:25:24 AZEB [facility] 2018-12-30 2018-12-30 Outpatient P EDUARDO [facility] [id number] Univers 10:00:00 11:14:24 AMNA [facility] 2018-12-29 2018-12-29 Outpatient P KERENILDAJose [facility] [id number] Univers 10:45:00 10:45:00 NISH [facility] Results Test Description Test Time Test Comments Results Result Comments Source COMP. METABOLIC PANEL (48223) 2021-09-23 19:42:47 Test Item Value Reference Range Interpretation Comme nts NA (test code = 1120758766) 138 mmol/L 135-145 K (test code = 7454057762) 4.8 mmol/L 3.5-5.0 CL (test code = 6447301883) 102 mmol/L 98-108 CO2 TOTAL (test code = 25 mmol/L 23-31 5055031425) AGAP (test code = 5593029690) 2-16 BUN (test code = 3655982559) 15 mg/dL 7-23 GLUCOSE (test code = 5416048387) 90 mg/dL 70-110 CREATININE (test code = 0.64 mg/dL 0.50-1.04 8167865698) TOTAL BILI (test code = 0.8 mg/dL 0.1-1.9 7677232834) CALCIUM (test code = 2756850476) 9.9 mg/dL 8.6-10.6 T PROTEIN (test code = 7.8 g/dL 6.3-8.2 6833040640) ALBUMIN (test code = 2313267797) 5.0 g/dL 3.5-5.0 ALK PHOS (test code = 8549026837) 84 U/L 34-122 ALTv (test code = 1742-6) 14 U/L 5-35 AST(SGOT) (test code = 23 U/L 13-40 0516583616) eGFR (test code = 8860652135) mL/min/1.73m2 [place] (test code = [place]) Association of Glomerular Filtration Rate (GFR) and Staging of Kidney Disease* + +--------- + ----+| GFR (mL/min/1.73 m2) ?| With Kidney Damage ?| ?Without Kidney Damage+ +--- + +| ?>90 ?| ?Stage one ?| ? Normal ?+ +-------- + -----+| ?60-89 ?| ?Stage two ?| ? Decreased GFR ? + +--------- + ----+| ?30-59 ?| ?Stage three ?| ? Stage three ? + +--------- + ----+| ?15-29 ?| ?Stage four ? | ? Stage four ?+ +-------- + -----+| ?<15 (or dialysis) ? ?| ?Stage five ? | ? Stage five ?+ +-------- + -----+ *Each stage assumes the associated GFR level has been in effect for at least three months. ?Stages 1 to 5, with or without kidney disease, indicate chronic kidney disease. Notes: Determination of stages one and two (with eGFR >59mL/min/1.73 m2) requires estimation of kidney damage for at least three months as defined by structural or functional abnormalities of the kidney, manifested by either:Pathological abnormalities or Markers of kidney damage (including abnormalities in the composition of the blood or urine or abnormalities in imaging tests). [facility] WITH [id number] 19:29:29 Test Item Value Reference Range Interpretation Comments WBC (test code = See_Comment [Automated 8290-2) message] The sy stem which generated this result transmitted reference range : 4.30 - 11.10 10*3/?L. The reference range was not used to interpret this result as normal/abnormal . RBC (test code = See_Comment [Automated 789-8) message] The sy stem which generated this result transmitted reference range : 3.93 - 5.25 10*6/?L. The reference range was not used to interpret this result as normal/abnormal . HGB (test code = 15.2 g/dL 11.6-15.0 H 718-7) HCT (test code = 44.7 % 35.7-45.2 4544-3) MCV (test code = 93.3 fL 80.6-95.5 787-2) MCH (test code = 31.7 pg 25.9-32.8 785-6) MCHC (test code = 34.0 g/dL 31.6-35.1 786-4) RDW-SD (test code = 42.0 fL 39.0-49.9 37279-1) RDW-CV (test code = 12.1 % 12.0-15.5 788-0) PLT (test code = See_Comment [Automated 777-3) message] The sy stem which generated this result transmitted reference range : 166 - 358 10*3/ ?L. The reference r vicente was not used to interpret this result as normal/abnormal . MPV (test code = 10.0 fL 9.5-12.9 84547-8) NRBC/100 WBC (test See_Comment [Automat ed code = 8618594901) message] The system which generated this result transmitted reference range : 0.0 - 10.0 /100 WBCs. The refer ence range was not u sed to interpret th is result as normal/abnormal . NRBC x10^3 (test code <0.01 See_Comment [Auto mated = 0818791111) message] The s ystem which generated this result transmitted reference range : 10*3/?L. The reference range was not used to interpret this result as normal/abnormal . GRAN MAT (NEUT) % 65.5 % (test code = 770-8) IMM GRAN % (test code 0.40 % = 0024476757) LYMPH % (test code = 20.6 % 736-9) MONO % (test code = 10.5 % 5905-5) EOS % (test code = 2.1 % 713-8) BASO % (test code = 0.9 % 706-2) GRAN MAT x10^3(ANC) 5.61 10*3/uL 1.88-7.09 (test code = 7548343248) IMM GRAN x10^3 (test 0.03 10*3/uL 0.00-0.06 code = 6143747701) LYMPH x10^3 (test code 1.76 10*3/uL 1.32-3.29 = 731-0) MONO x10^3 (test code 0.90 10*3/uL 0.33-0.92 = 742-7) EOS x10^3 (test code = 0.18 10*3/uL 0.03-0.39 711-2) BASO x10^3 (test code 0.08 10*3/uL 0.01-0.07 H = 704-7) Lab Interpretation Abnormal (test code = 11062-9) [id number] Test Item Value Reference Range Interpretation Comments POCT PREG (test code = 1605) Negative On board controls acceptable with Present C Line (test code = 3574) POCT PREG LOT # (test code = 3575) [id number] POCT PREG TEST DATE (test 02-24-2023 code = 3576) Lab Interpretation (test code = Normal 81265-8) [facility] [id number] 11:20:57 Test Item Value Reference Interpretation Comments Range DIAGNOSIS: (test (NOTE) A) Polypect niharika - EndocervixBenign code = 8200) inactive endome trium and benign endocervical ti ssue. B) Biopsy - Cervix, 3 o'lizeth ckCervical transformation zone with chronic cervicitis and reactiveepithelial changes. C) Bio psy - Cervix, 6 o'clockSquamous mucosa with acute and chronic inf lammation and reactivecellula r changes. D) Biopsy - Cervix , 9 o'clockBenign squamous mucosa ; no transformation zone present. E) Biopsy - Cervix , 11 o'clockCervical transformation zone with chron ic cervicitis and reactiveepithel ial changes. COMMENTS: (test (NOTE) The previous ly reported abnormal code = 8205) Pap (accession # [id number]) isreviewed. The atypical cells identified on t he Pap slidecorrelate with the biopsy findings. MICROSCOPIC (NOTE) A) The endometr ium shows benign DESCRIPTION: glands lined by a low (test code = columnarepithel ium with scant 8210) cytoplasm, alig karri nuclei and nosignificant m itotic activity. These are surro unded byunremarkable stroma. The sample contains minimal endocervicalgla ndular epithelium. No atypia or p olyp is noted. B) Cervical transf ormation zone mucosa shows ch ronic inflammationand mild reactive cellular change s. A stain for p16 is performe dwith an appropriately s taining positive control and is negativein the patient tissue. No dysplasia or malignancy is i dentified. C) Cervical squamo us mucosa is present without contiguoustrans formation zone. Endocervical gl ands are seen in theunderlying s troma. There is mild acute and chronic inflammationwit h reactive cellular change s. A stain for p16 is performe dwith an appropriately s taining positive control and is negativein the patient tissue. No dysplasia or malignancy is s een. D) The biopsy consists of benign squamous mucosa . Squamocolumnart ransformation zone is not identifi ed in the biopsy. A stain forp16 is performed with an appropriatel y staining positive contro land is negative in the patient tissue. There is no atypia,dyspl kaylah, or malignancy. E) Cervical transformation zone mucosa shows chronic inflamm ationand mild reactive cellul ar changes. A stain for p16 i s performedwith an appropriately s taining positive control and is negativein the patient tissue. No dysplasia or malignancy is i dentified. CLINICAL DATA: (NOTE) Not specified . (test code = 8401) GROSS (NOTE) A) SPECIMEN LAB ELED: DESCRIPTION: EndocervixSIZE/ WEIGHT: (test code = 0.8x0.7x0.1 cm AggregateSPECIMEN 8220) COLOR: TanNUMBE R OF TISSUE PIECES: multip leSUBMITTED IN CASSETTE(S): x1 MEDIUM: FormalinCOMMENT S:Filtered and entirely submit damon. B) SPECIMEN LABELED: Cervi x, 3 o'clockSIZE/RAMONA GHT: 0.3x0.2x0.1 cm AggregateSPE CIMEN COLOR: TanNUMBER OF TI SSUE PIECES: multipleSUBMITT ED IN CASSETTE(S): [id number]: FormalinCOMMENT S:Entirely submitted intac t. C) SPECIMEN LABELED: Cervi x, 6 o'clockSIZE/RAMONA GHT: 0.3x0.2x0.1 cm SPECIMEN COL OR: TanNUMBER OF TISSUE PIECES: 1SUBMITTED IN CASSETTE(S): x1 MEDIUM: FormalinCOMMENT S:Entirely submitted intac t. D) SPECIMEN LABELED: Cervi x, 9 o'clockSIZE/RAMONA GHT: 0.3x0.2x0.1 cm SPECIMEN COL OR: TanNUMBER OF TISSUE PIECES: 1SUBMITTED IN CASSETTE(S): x1 MEDIUM: FormalinCOMMENT S:Entirely submitted intac t. E) SPECIMEN LABELED: Cervi x, 11 o'clockSIZE/RAMONA GHT: 0.4x0.3x0.3 cm SPECIMEN COL OR: TanNUMBER OF TISSUE PIECES: 1SUBMITTED IN CASSETTE(S): x1 MEDIUM: FormalinCOMMENT S:Entirely submitted intac t. PATHOLOGIST: (NOTE) Charisma walters Specimens (test code = processed at [facility] 8250) Laboratories, [address] [place] [address] 2267 4, , CLIA: [id number] interpreted at [facility], [address] [place], [place] [id number] 5, , CLIA: [id number] DISCLAIMER (test (NOTE) IHC antibod ies are interpreted in code = 27217) the presence o f appropriatelyfu nctioning controls unless otherwis e noted. CPT: (test code (NOTE) 45928x2, 883 05x5 UNLESS = 8400) OTHERWISE INDIC ATED, ALL TESTING PERFORMED [facility] PATHOLOGY FORMERLY [facility], [facility]. [address] [place] [address] 4 LABORATORY DIRE CTOR: TERRI MCCRARY M.D. CLIA NUMBER [id number] [facility] [place]. [id number] PAP TEST, THINPREP, [id number] 11:12:17 Test Item Value Reference Range Interpretation Comments SOURCE: (test code = Cervical/Endo 8001) cervical SLIDES: (test code = 1 8011) LMP: (test code = 08/05/2021 8021) SPECIMEN ADEQUACY: (NOTE) Sati sfactory for (test code = 47345) evaluati on. Endoce rvical cells/transform ation zone component present. INTERPRETATION: ASCUS/EPITH. A (test code = 98997) ABNORMALITY; -------- SEE BELOW ------- ---- EPITHELIAL CELL ABNORMALITY Atypi erick squamous cells of undetermined significance (ASC-US)------- ------- ------- ------- OTHER COMMENTS: (NOTE) Possible richelle nges of (test code = 8081) Herpes vi eddie present. Recommend PCR orculture for confirmation. PCR may be performed on this samplewithin 21 days of collection. Please contact [facility] [phone]. ANALYST SALES: Miguelina Ndiaye (test code = 8101) HAYLIE Phillips(ASC P) PATHOLOGIST Dylan Holland INTERPRETATION BY: (test code = 8122) LOCATION: (test code (NOTE) Specime ns processed at = 62[address]) [facility], [address] [place] [address], Phone: , CLIA: [id number] interpreted at [facility] Pathology DeptLaboratory, [address] [facility] [place] [address], , CLIA: [id number] CPT: (test code = (NOTE) 13687, 881 41 UNLESS 8140) OTHERWISE INDIC ATED, COMPUTER AIDED AND CYTOTECHNOLOGIS T SCREENING PERFO RMED. The Pap test is a screening test with an inherent, but l ow probability of error. Your patient sh ould be reminded to consult you immediately if she experiences any suspicious signs or symptoms, regardless of h er Pap test result. An alternate repor t format containi ng images or conso lidated prior Pap h istory is available as applicable. CT/NG, TMA, [id number] 19:19:14 Test Item Value Reference Range Interpretation Comments GONORRHEA, TMA NEGATIVE NEGATIVE Assay m ethodology is (test code = nucleic acid am plification 55229) by transcriptio n mediated amplif ication (TMA) utilizing the Aptima Combo 2 Assay. CHLAMYDIA, TMA NEGATIVE NEGATIVE Assay m ethodology is (test code = nucleic acid am plification 71577) by transcriptio n mediated amplif ication (TMA) utilizing the Aptima Combo 2 Assay. HPV HIGH RISK WITH GENOTYPE, [id number] 16:29:18 Test Item Value Reference Range Interpretation Comments HPV HIGH RISK INTERP POSITIVE NEGATIVE A (test code = 76833) HPV 16 (test code = NEGATIVE 20468) HPV 18 (test code = NEGATIVE 76713) HPV, HR, OTHER POSITIVE A Testing GENOTYPES (test code methodo logy is real-time = 29837) PCR utilizing h ydrolysis probes with the Kaiden Jenniffer 480 0 system. The test indiv idually detects genot ypes 16 and 18, as well as the other 12 high r isk types (31,33,35,39,45 ,51,52,56 ,58,59,66,68). The expected re sult is negative. A negative result does not rule out the presence of HPV not included in the genotype set, a low level of infect ion or specimen corwin pling error. U NLESS OTHERWISE INDIC ATED, ALL TESTING PERFORM [facility]. [address] [place] [address] LABORATORY DIRE CTOR: TERRI GARDNER M.D. CLIA NUMBER [id number] CAP ACCREDITATION N O. [id number] VAGINAL PATHOGENS DNA [id number] 14:49:20 Test Item Value Reference Range Interpretation Comments DWIGHT SPECIES (test NEGATIVE NEGATIVE code = 09947) G. VAGINALIS (test POSITIVE NEGATIVE A code = ) T. VAGINALIS (test NEGATIVE NEGATIVE UN LESS OTHERWISE code = 73698) INDICATED, ALL TESTING PERFORMED [facility] PATHOLOGY [facility]LY [facility], [address] [address] LABORATORY DIR BRITNI: TERRI GARDNER M.D. CLIA NUMBER [id number] CAP ACCREDITATION N O. [id number] HEPATITIS PANEL, [id number] 05:59:23 Test Item Value Reference Range Interpretation Comments HEPATITIS A IgM (test NON-REACTIVE NON-REACTIVE code = 96353) HEPATITIS B CORE IgM NON-REACTIVE NON-REACTIVE (test code = 4644) HEPATITIS B SURF AG NON-REACTIVE NON-REACTIVE (test code = 2739) HEPATITIS C ANTIBODY NON-REACTIVE NON-REACTIVE (test code = 4675) INTERPRETATION (NOTE) Hepatiti s A HEPATITIS A: (test code sero logy shows no = 2552) evidence of acu te hepatitis A. INTERPRETATION (NOTE) Hepatiti s B HEPATITIS B: (test code sero logy shows no = 26587) evidence of acu te hepatitis B and no indication of exposure to hepatitis B vir us in the previous kiko eight months. INTERPRETATION (NOTE) Hepatiti s C HEPATITIS C: (test code sero logy shows no = 02519) evidence of exposure to hepatitisC viru s at this time. It can take up to 12 months after exposure tothe hepatitis C vir us for antibodies to become detectab le in the bloo d in certain patients. HIV 1/2 4TH GEN, RFLX [id number] 05:59:23 Test Item Value Reference Range Interpretation Comments HIV 1/2 4TH GEN, RFLX CONF (test NON-REACTIVE NON-REACTIVE code = 3514) [id number] 05:28:14 Test Item Value Reference Range Interpretation Comments RPR RESULT (test code = NON-REACTIVE NON-REACTIVE 3501) RPR TITER (test code = 3500) NOT INDIC. TITER NOT INDIC. CBC W/AUTO DIFF WITH [id number] 12:09:41 Test Item Value Reference Range Interpretation Comments WBC (test code = 7.2 K/UL 3.5-11.0 1001) RBC (test code = 4.17 M/UL 3.80-5.40 1002) HEMOGLOBIN (test code 13.7 G/DL 11.5-15.5 = 1003) HEMATOCRIT (test code 39.4 % 34.0-45.0 = 1004) MCV (test code = 94.5 fL 80.0-99.0 1005) MCH (test code = 32.9 PG 25.0-33.0 1006) MCHC (test code = 34.8 G/DL 31.0-36.0 1007) RDW (test code = 11.7 % 11.5-15.0 1038) NEUTROPHILS (test 64.0 % code = 1008) LYMPHOCYTES (test 23.9 % code = 1010) MONOCYTES (test code 8.4 % = 1011) EOSINOPHILS (test 2.6 % code = 1012) BASOPHILS (test code 0.8 % = 1013) IMMATURE GRANULOCYTES 0.3 % (test code = 1036) NUCLEATED RBCS (test 0.0 /100 See_Comment [Autom ated code = 1065) WBC'S message] The sy stem which generated this result transmitted reference range : 0.0. The refere nce range was not u sed to interpret th is result as normal/abnormal . PLATELET COUNT (test 220 K/UL 130-400 code = 1015) ABSOLUTE NEUTROPHILS 4.62 K/UL 1.50-7.50 (test code = 1066) ABSOLUTE LYMPHOCYTES 1.73 K/UL 1.00-4.00 (test code = 1067) ABSOLUTE MONOCYTES 0.61 K/UL 0.20-1.00 (test code = 1068) ABSOLUTE EOSINOPHILS 0.19 K/UL 0.00-0.50 (test code = 1040) ABSOLUTE BASOPHILS 0.06 K/UL 0.00-0.20 (test code = 1069) ABS IMMATURE 0.02 K/UL 0.00-0.10 GRANULOCYTES (test code = 1020) ABS NUCLEATED RBCS 0.00 K/UL 0.00-0.11 (test code = 21318) TSH, THIRD [id number] 06:48:11 Test Item Value Reference Range Interpretation Comments TSH, THIRD 1.130 UIU/ML 0.400-4.100 UNLESS GENERATION (test OTHERWISE I NDICATED, code = 2821) ALL TESTING PER [facility], [place]. [address] [place] [address] LABORATORY DIRE CTOR: TERRI GARDNER M.D. CLIA NUMBER [id number] CAP ACCREDITATION N O. [id number] LIPID [id number] 06:12:16 Test Item Value Reference Range Interpretation Comments CHOLESTEROL (test 192 MG/DL <200 code = 2210) TRIGLYCERIDES (test 78 MG/DL <150 code = 2232) HDL CHOLESTEROL (test 56 MG/DL >39 code = 2220) CALC LDL CHOL (test 119 MG/DL <100 H NOTE: C ALCULATED LDL code = 2237) IS BASED ON ABIGAIL-WHEELER METHOD WHICHINCLUDES ADJUSTABLE TRIGLYCERIDE:VL DL CHOLESTEROL RAT IO.THIS FACTOR VARIES B Y MEASURED TRIGLY CERIDE AND NON-HDLCHOL ESTEROL CONCENTRATIONS WITH INCREASED CALCU LATED LDL SEENIN HIGH ER TRIGLYCERIDE OR LOWER NON-HDL SPECIME NS. FOR MOREINFORMATION , SEE CLIENT ANNOUNCE MENT AT [email or web address] RATIO LDL/HDL 2.13 RATIO <3.22 (test code = 2238) COMPREHENSIVE METABOLIC [id number] 06:12:16 Test Item Value Reference Range Interpretation Comments GLUCOSE (test code = 89 MG/DL 70-99 2216) BUN (test code = 12 MG/DL 6-20 2207) CREATININE (test 0.52 MG/DL 0.60-1.30 L code = 2214) eGFR (2020 CKD-EPI) 127 >60 (test code = 94819) ML/MIN/1.73 CALC BUN/CREAT (test 23 RATIO 6-28 code = 2235) SODIUM (test code = 138 MEQ/L 516-346 3100) POTASSIUM (test code 4.0 MEQ/L 3.5-5.4 = 2227) CHLORIDE (test code 103 MEQ/L 95-107 = 2214) CARBON DIOXIDE (test 22 MEQ/L 19-31 code = 2205) CALCIUM (test code = 9.6 MG/DL 8.5-10.5 2208) PROTEIN, TOTAL (test 7.0 G/DL 6.1-8.3 code = 2228) ALBUMIN (test code = 4.6 G/DL 3.5-5.2 2200) CALC GLOBULIN (test 2.4 G/DL 1.9-3.7 code = 2239) CALC A/G RATIO (test 1.9 RATIO 1.0-2.6 code = 223) BILIRUBIN, TOTAL 0.6 MG/DL See_Comment [Automated message] (test code = 2206) The syste Go800 which generated this result transmit damon reference range : <=1.2. The refe rence range was not u sed to interpret th is result as normal/abnormal . ALKALINE PHOSPHATASE 99 U/L 40-114 (test code = 2203) AST (test code = 17 U/L 9-40 2217) ALT (test code = 12 U/L 5-40 2218)"
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
[2021-10-09 22:59] VITALS: BP 130/95; TEMP 97.8; O2SAT 100
== END 2021-10-09 22:52 | disposition home or self-care (01) ==
LOC: ER 22:22
DX: S00.93XA Contusion of unspecified part of head, initial encounter (principal); Y09 Assault by unspecified means; F17.210 Nicotine dependence, cigarettes, uncomplicated
CPT/HCPCS: 99281

== ENCOUNTER 2022-11-30 23:13 | Emergency (ER) | payer OTHER ==
--- OUTSIDE RECORDS SUMMARY | 2022-11-30 23:20 | XMS REPORT | Continuity of Care Document ---
:1990 Author Organization [facility] t Address [address] [facility] [place] [address] Care Team Providers Name Role Phone Jose Kelly Akhil Primary Care Physician YANICK LYLE Attending Clinician Unavailable Doctor Unassigned, [place] Attending Clinician Unavailable Cathie Subramanian MD Attending Clinician RIVERA PINK Attending Clinician Unavailable CATHIE SUBRAMANIAN Attending Clinician Unavailable Rivera Last Attending Clinician JESSE DONG Attending Clinician Unavailable ERICA KLINE Attending Clinician Unavailable RADIOLOGY Attending Clinician Unavailable Radiology Attending Clinician Unavailable TIMOTEO AMAYA Attending Clinician Unavailable Timoteo May S Attending Clinician KAREN BURNETT Attending Clinician Unavailable BRYN BRADLEY Attending Clinician Unavailable BERTHA Attending Clinician Unavailable RENUKA NELSON Attending Clinician Unavailable CARL WORKMAN Attending Clinician Unavailable AMNA CLARK Attending Clinician Unavailable RUSTAM THRASHER Attending Clinician Unavailable ISRAEL PEREZ Attending Clinician Unavailable ISRAEL PEREZ Attending Clinician Unavailable LENNOX CABRERA Attending Clinician Unavailable AZEB MORRISON Attending Clinician Unavailable NISH GLOVER Attending Clinician Unavailable YANICK LYLE Admitting Clinician Unavailable TIMOTEO AMAYA Admitting Clinician Unavailable BERTHA Admitting Clinician Unavailable CARL WORKMAN Admitting Clinician Unavailable Payers Payer Name Policy Type Policy Number Effective Date Expiration Date Briana ESCOBAR [id number] 2020 HEALTH 00:00:00 [facility] [place] [id number] 2019 WOMEN 00:00:00 [facility] [id number] 2018 CHOICE MEDICAID 00:00:00 Problems Condition Condition Condition Status Onset Resolution Last Treating Co mments Source Name Details Category Date Date Treatment Clinician Date Infection Infection Disease Active Uni vers of hand of hand 8-18 ity of due to due to 00:00: [place] bite bite 00 Medical Branch Gastroesop Gastroesop Disease Active 2018-04 U nivers hageal hageal 2-05 ity of reflux reflux 00:00: [place] disease disease 00 Medical without without Branch esophagiti esophagiti s s Abnormal Abnormal Disease Active 2018-04 Unive rs maternal maternal 1-08 ity of glucose glucose 00:00: [place] tolerance, tolerance, 00 Me dical antepartum antepartum Br anch Underweigh Underweigh Disease Active U nivers t t 9 ity of 00:00: [place] 00 Medical Branch History of History of Disease Active U nivers bipolar bipolar 9 ity of disorder disorder 00:00: [place] 00 Medical Branch Polysubsta Polysubsta Disease Active U nivers nce abuse nce abuse 01-17 ity of 00:00: [place] 00 Medical Branch PTSD PTSD Disease Active Univers (post-trau (post-trau 01-17 it y of matic matic 00:00: [place] stress stress 00 Medical disorder) disorder) Bran ch Trichomona Trichomona Disease Active U nivers l l 7-02 ity of vulvovagin vulvovagin [place] [facility] Hepatitis Hepatitis Disease Active Overview: Univers C antibody C antibody 10-25 Formattin ity of test test 00:00: g of this [place] positive positive 00 note Medica l might be Branch different from the original. PCR negative Multiparit Multiparit Disease Active U nivers y y 6-28 ity of 00:00: [place] [facility] Eating Eating Disease Active Univers disorder disorder 10-22 ity of 00:00: [place] [facility] Anxiety Anxiety Disease Active Univers and and 10-22 it[place] of depression depression [place] [facility] [place] Lost Lost Disease Active Univers custody of custody of 10-22 it y of children children 00:00: [place] [facility] History of History of Disease Active U nivers seizures seizures 10-22 ity of 00:00: [place] [facility] [place] Allergies, Adverse Reactions, Alerts Allergy Allergy Status Severity Reaction(s) Onset Inactive Treating Comm ents Source Name Type Date Date Clinician Mesna - Propensi Active Intraven ty to 6-24 ous adverse 00:00: reaction 00 to drug Ziprasid Propensi Active Hallucinatio Univers one ty to ns 1-10 ity of Mesylate adverse 00:00: [place] reaction Medical s Branch Risperid Propensi Active Hallucinatio Univers one ty to ns 1-10 ity of adverse 00:00: [place] reaction 00 [facility] s Branch ZIPRASID DRUG Active Hallucinates [place] ONE INGREDI 1-10 ity of MESYLATE 00:00: [place] [facility] RISPERID DRUG Active Hallucinates [place] ONE INGREDI 1-10 ity of 00:00: [place] [id number] [facility] [place] NO KNOWN Drug Active Univers ALLERGIE Class ity of S [facility] Social History Social Habit Start Date Stop Date Quantity Comments Source History of tobacco 2001-10-22 Cigarette Smoker University of use 00:00:00 [facility] History SDOH University o f Alcohol Std Drinks [facility] History SDOK University o f Alcohol Binge [place] [facility] [place] History [facility] University o f Alcohol Comment [place] [facility] Exposure to 2022-04-20 2022-04-30 Not sure University of SARS-CoV-2 (event) 00:00:00 14:04:00 [facility] Alcohol intake 2022-04-30 2022-04-30 0 /d University of 00:00:00 00:00:00 [facility] Cigarettes smoked 2022-04-30 2022-04-30 Univers ity of current (pack per 00:00:00 00:00:00 [facility] ) - Reported Branch Tobacco use and 2022-04-30 2022-04-30 Smokeless Universit y of exposure 00:00:00 00:00:00 tobacco non-user [facility] dical [place] Tobacco Comment 2022-04-30 2022-04-30 Has too much Univers ity of 00:00:00 00:00:00 stress to quit [facility] History SDOH 2018-10-22 2018-10-22 1 University o f Alcohol Frequency 00:00:00 00:00:00 [place] [facility] Branch Sex [birth year] Universit y of 00:00:00 00:00:00 [facility] Smoking Status Start Date Stop Date Source Smokes tobacco daily 2022-04-30 00:00:00 Univers ity of [facility] Medications Ordered Filled Start Stop Current Ordering Indication Dosage Frequency Signature Comments Components Source Medication Medication Date Date Medication? Clinician (SIG) Name Name No known No No known Unive rs medications - medication it y of 14:13: s [address] No known No No known Unive rs medications - medication it y of 14:13: [address] No known No No known Unive rs medications - medication it y of 14:13: [address] TAKE 1 2021-04 No CAPSULE BY 0-27 MOUTH TWICE 00:00: DAILY 00 TAKE 1 No TABLET BY 9-13 MOUTH EVERY 00:00: 8 HOURS 00 WITH FOOD AND DRINK PLENTY OF WATER FOR PAIN TAKE No TABLET BY 9-13 MOUTH EVERY 00:00: 8 HOURS 00 WITH FOOD AND DRINK PLENTY OF WATER FOR PAIN BUSPIRONE 2021-0 No TAB 15MG 8- 00:00: 00 BUSPIRONE 2021-0 No TAB 15MG 12-23 00:00: 00 QUETIAPINE 2021-0 No TAB 25MG 8 00:00: 00 QUETIAPINE 2-0 No TAB 25MG 12-16 00:00: 00 Dose 2-0 No Unknown 8- 00:00: 00 Dose 2-0 No Unknown 8 00:00: 00 Dose 2-0 No Unknown 7-08 00:00: 00 Dose 2021-0 No Unknown 7-08 00:00: 00 Dose 2-0 No Unknown 7-08 00:00: 00 Dose 2021-0 No Unknown 7-08 00:00: 00 Dose 2021-0 No Unknown 7-08 00:00: 00 Dose 2021-0 No Unknown 7-08 00:00: 00 Dose 2-0 No Unknown 7-08 00:00: 00 Dose 2021-0 No Unknown 7-08 00:00: 00 Dose 2021-0 No Unknown 7-08 00:00: 00 Dose 2021-0 No Unknown 7-08 00:00: 00 Dose 2021-0 No Unknown 7-06 00:00: 00 Dose 2021-0 No Unknown 7-06 00:00: 00 Dose 2021-0 No Unknown 7-06 00:00: 00 Dose 2021-0 No Unknown 7-06 00:00: 00 Dose 2021-0 No Unknown 7-06 00:00: 00 Dose 2021-0 No Unknown 7-06 00:00: 00 Dose 2021-0 No Unknown 7-06 00:00: 00 Dose 2021-0 No Unknown 7-06 00:00: 00 Dose 2021-0 No Unknown 7-06 00:00: 00 iopamidol 2021-0 2021- No [id number] 80mL 80 mL, [place] (ISOVUE 6-30 06-30 Intravenou ity o f 370-500 mL) 14:15: 13:09 s, ONCE, 1 [place] injection 00 :00 dose, On Medica l 80 mL Kya Branch 10/24/21 at 0915, Routine ibuprofen 2021-0 No 1mg 600 mg 6-24 tablet 00:00: 00 amoxicillin 2-0 No 1mg 500 mg 6-24 capsule 00:00: 00 ibuprofen 2021-0 No 1mg 600 mg 6-24 tablet 00:00: 00 amoxicillin 2-0 No 1mg 500 mg 6-24 capsule 00:00: 00 ibuprofen 2022-0 No 1mg 600 mg 6-24 tablet 00:00: 00 amoxicillin 2-0 No 1mg 500 mg 6-24 capsule 00:00: 00 ketorolac 2021-0 2021- No 30mg 30 mg, Unive rs (TORADOL) 5-30 05-30 Slow IV ity of injection 20:30: 19:44 Push, [place] 30 mg 00 :00 ONCE, 1 Medical dose, On Branch 09/23/21 at 1530, JENNIFER
Fa culty member approving Restricted medication : AMAYA TIMOTEO [place] iopamidol 2021- No [id number] 100mL 100 mL, Univers (ISOVUE 5-30 05-30 Intravenou ity o f 370-500 mL) 20:00: 20:15 s, ONCE, 1 [place] injection 00 :00 dose, On Medica l 100 mL Mon Branch 09/23/21 at 1515, Routine ondansetron 2021- No 4mg 4 mg, Slow Univers (ZOFRAN 5-30 05-30 IV Push, ity of (PF)) 19:45: 19:43 ONCE, 1 [place] injection 4 00 :00 dose, On Medi erick mg [facility] Branch 09/23/21 at 1445, JENNIFER No known No Univers medications 5-30 ity of 13:33: [address] No known 0 No Univers medications 5-30 ity of 13:33: [address] No known 0 No Univers medications 5-30 ity of 13:33: [address] No known 0 No Univers medications 5-30 ity of 13:33: [address] No known 0 No No known Unive rs medications 5-30 medication it y of 13:33: [address] No known No No known Unive rs medications 5-30 medication it y of 13:33: s [address] No known 0 No No known Unive rs medications 5-30 medication it y of 13:33: s [address] No known 0 No No known Unive rs medications 5-30 medication it y of 13:33: [address] metronidazo 2021-0 No 1mg le 500 mg 4-25 tablet 00:00: 00 Dose 0 No Unknown 4-25 00:00: 00 Dose 2021-0 No Unknown 4-25 00:00: 00 metronidazo 2021-0 No 1mg le 500 mg 4-25 tablet 00:00: 00 Dose 2022-0 No Unknown 4-25 00:00: 00 Dose 2022-0 No Unknown 4-25 00:00: 00 metronidazo 2022-0 No 1mg le 500 mg 4-25 tablet 00:00: 00 Dose 2022-0 No Unknown 4-25 00:00: 00 Dose 2022-0 No Unknown 4-25 00:00: 00 Dose 2022-0 No Unknown 4-21 00:00: 00 Dose 2022-0 No Unknown 4-21 00:00: 00 Dose 2022-0 No Unknown 4-21 00:00: 00 Dose 2022-0 No Unknown 4-21 00:00: 00 Dose 2022-0 No Unknown 4-21 00:00: 00 Dose 2022-0 No Unknown 4-21 00:00: 00 Dose 2022-0 No Unknown 4-21 00:00: 00 Dose 2022-0 No Unknown 4-21 00:00: 00 Dose 2022-0 No Unknown 4-21 00:00: 00 Dose 2022-0 No Unknown 4-21 00:00: 00 Dose 2022-0 No Unknown 4-21 00:00: 00 Dose 2022-0 No Unknown 4-21 00:00: 00 Dose 2022-0 No Unknown 4-21 00:00: 00 Dose 2022-0 No Unknown 4-21 00:00: 00 Dose 2022-0 No Unknown 4-21 00:00: 00 Dose 2022-0 No Unknown 4-21 00:00: 00 Dose 2022-0 No Unknown 4-21 00:00: 00 Dose 2022-0 No Unknown 4-21 00:00: 00 Dose 2022-0 No Unknown 4-21 00:00: 00 Dose 2022-0 No Unknown 4-21 00:00: 00 Dose 2022-0 No Unknown 4-21 00:00: 00 Dose 2022-0 No Unknown 4-21 00:00: 00 Dose 2022-0 No Unknown 4-21 00:00: 00 Dose 2022-0 No Unknown 4-21 00:00: 00 Dose 2022-0 No Unknown 4-21 00:00: 00 Dose 2022-0 No Unknown 4-21 00:00: 00 Dose 2022-0 No Unknown 4-21 00:00: 00 Dose 2022-0 No Unknown 4-21 00:00: 00 Dose 2022-0 No Unknown 4-21 00:00: 00 Dose 2022-0 No Unknown 4-21 00:00: 00 Dose 2022-0 No Unknown 4-21 00:00: 00 Dose 2022-0 No Unknown 4-21 00:00: 00 Dose 2022-0 No Unknown 4-21 00:00: 00 Dose 2022-0 No Unknown 4-21 00:00: 00 Dose 2022-0 No Unknown 4-21 00:00: 00 Dose 2022-0 No Unknown 4-21 00:00: 00 Dose 2022-0 No Unknown 4-21 00:00: 00 Dose 2022-0 No Unknown 4-21 00:00: 00 Dose 2022-0 No Unknown 4-21 00:00: 00 Dose 2022-0 No Unknown 4-21 00:00: 00 Dose 2022-0 No Unknown 4-21 00:00: 00 Dose 2022-0 No Unknown 4-21 00:00: 00 Dose 2022-0 No Unknown 4-21 00:00: 00 Dose 2022-0 No Unknown 4-21 00:00: 00 Dose 2022-0 No Unknown 4-21 00:00: 00 Dose 2022-0 No Unknown 4-21 00:00: 00 Dose 2022-0 No Unknown 4-21 00:00: 00 Dose 2022-0 No Unknown 4-21 00:00: 00 Dose 2022-0 No Unknown 4-21 00:00: 00 Dose 2022-0 No Unknown 4-21 00:00: 00 Dose 2022-0 No Unknown 4-21 00:00: 00 Dose 2022-0 No Unknown 4-21 00:00: 00 Dose 2022-0 No Unknown 4-21 00:00: 00 Dose 2022-0 No Unknown 4-21 00:00: 00 Dose 2022-0 No Unknown 4-21 00:00: 00 Dose 2022-0 No Unknown 4-21 00:00: 00 Dose 2022-0 No Unknown 4-21 00:00: 00 Dose 2022-0 No Unknown 4-21 00:00: 00 Dose 2022-0 No Unknown 4-21 00:00: 00 Dose 2022-0 No Unknown 4-21 00:00: 00 Dose 2022-0 No Unknown 4-21 00:00: 00 Dose 2022-0 No Unknown 4-21 00:00: 00 Dose 2022-0 No Unknown 4-21 00:00: 00 Dose 2022-0 No Unknown 4-21 00:00: 00 Dose 2022-0 No Unknown 4-21 00:00: 00 Dose 2022-0 No Unknown 4-21 00:00: 00 Dose 2022-0 No Unknown 4-21 00:00: 00 Dose 2022-0 No Unknown 4-21 00:00: 00 Dose 2022-0 No Unknown 4-21 00:00: 00 Dose 2022-0 No Unknown 4-21 00:00: 00 Dose 2022-0 No Unknown 4-21 00:00: 00 Dose 2022-0 No Unknown 4-21 00:00: 00 Dose 2022-0 No Unknown 4-21 00:00: 00 Dose 2022-0 No Unknown 4-21 00:00: 00 Dose 2022-0 No Unknown 4-21 00:00: 00 Dose 2022-0 No Unknown 4-21 00:00: 00 Dose 2022-0 No Unknown 4-21 00:00: 00 Dose 2022-0 No Unknown 4-21 00:00: 00 Dose 2022-0 No Unknown 4-21 00:00: 00 Dose 2022-0 No Unknown 4-21 00:00: 00 Dose 2022-0 No Unknown 4-21 00:00: 00 Dose 2022-0 No Unknown 4-21 00:00: 00 Dose 2022-0 No Unknown 4-21 00:00: 00 Dose 2022-0 No Unknown 4-21 00:00: 00 Dose 2022-0 No Unknown 4-21 00:00: 00 Dose 2022-0 No Unknown 4-21 00:00: 00 Dose 2022-0 No Unknown 4-21 00:00: 00 ProAir HFA 2-0 No 1mcg/ac 90 4-13 tuation mcg/actuati 00:00: on aerosol 00 inhaler Ventolin 2-0 No 12mcg/a HFA 90 4-13 ctuatio mcg/actuati 00:00: n on aerosol 00 inhaler ProAir HFA 2022-0 No 1mcg/ac 90 4-13 tuation mcg/actuati 00:00: on aerosol 00 inhaler Ventolin 2-0 No 12mcg/a HFA 90 4-13 ctuatio mcg/actuati 00:00: n on aerosol 00 inhaler ProAir HFA 2021-0 No 1mcg/ac 90 4-13 tuation mcg/actuati 00:00: on aerosol 00 inhaler Ventolin 2021-0 No 12mcg/a HFA 90 4-13 ctuatio mcg/actuati 00:00: n on aerosol 00 inhaler Xopenex HFA 2021-0 No 1mcg/ac 45 3-21 tuation mcg/actuati 00:00: on aerosol 00 inhaler sulfamethox 2021-0 No 1mg azole 800 3-21 mg-trimetho 00:00: prim 160 mg 00 tablet amoxicillin 2021-0 No 1mg 875 3-21 mg-potassiu 00:00: m 00 clavulanate 125 mg tablet ibuprofen 2021-0 No 1mg 600 mg 3-21 tablet 00:00: 00 Dose 2-0 No Unknown 3-21 00:00: 00 Dose 2-0 No Unknown 3-21 00:00: 00 Dose 2-0 No Unknown 3-21 00:00: 00 Dose 2-0 No Unknown 3-21 00:00: 00 Dose 2-0 No Unknown 3-21 00:00: 00 Dose 2-0 No Unknown 3-21 00:00: 00 Dose 2-0 No Unknown 3-21 00:00: 00 Dose 2-0 No Unknown 3-21 00:00: 00 Dose 2022-0 No Unknown 3-21 00:00: 00 Dose 2-0 No Unknown 3-21 00:00: 00 Dose 2022-0 No Unknown 3-21 00:00: 00 Dose 2022-0 No Unknown 3-21 00:00: 00 Dose 2-0 No Unknown 3-21 00:00: 00 Dose 2-0 No Unknown 3-21 00:00: 00 Dose 2022-0 No Unknown 3-21 00:00: 00 Dose 2-0 No Unknown 3-21 00:00: 00 Dose 2022-0 No Unknown 3-21 00:00: 00 Dose 2022-0 No Unknown 3-21 00:00: 00 Dose 2022-0 No Unknown 3-21 00:00: 00 Dose 2022-0 No Unknown 3-21 00:00: 00 Dose 2022-0 No Unknown 3-21 00:00: 00 Dose 2022-0 No Unknown 3-21 00:00: 00 Dose 2-0 No Unknown 3-21 00:00: 00 Dose 2-0 No Unknown 3-21 00:00: 00 Dose 2022-0 No Unknown 3-21 00:00: 00 Dose 2022-0 No Unknown 3-21 00:00: 00 Dose 2-0 No Unknown 3-21 00:00: 00 Dose 2-0 No Unknown 3-21 00:00: 00 Dose 2-0 No Unknown 3-21 00:00: 00 Dose 2-0 No Unknown 3-21 00:00: 00 Dose 2-0 No Unknown 3-21 00:00: 00 Xopenex HFA 2021-0 No 1mcg/ac 45 3-21 tuation mcg/actuati 00:00: on aerosol 00 inhaler sulfamethox 2021-0 No 1mg azole 800 3-21 mg-trimetho 00:00: prim 160 mg 00 tablet amoxicillin 2021-0 No 1mg 875 3-21 mg-potassiu 00:00: m 00 clavulanate 125 mg tablet ibuprofen 2021-0 No 1mg 600 mg 3-21 tablet 00:00: 00 Dose 2-0 No Unknown 3-21 00:00: 00 Dose 2-0 No Unknown 3-21 00:00: 00 Dose 2-0 No Unknown 3-21 00:00: 00 Dose 2-0 No Unknown 3-21 00:00: 00 Dose 2-0 No Unknown 3-21 00:00: 00 Dose 2-0 No Unknown 3-21 00:00: 00 Dose 2022-0 No Unknown 3-21 00:00: 00 Dose 2-0 No Unknown 3-21 00:00: 00 Dose 2-0 No Unknown 3-21 00:00: 00 Dose 2-0 No Unknown 3-21 00:00: 00 Dose 2-0 No Unknown 3-21 00:00: 00 Dose 2022-0 No Unknown 3-21 00:00: 00 Dose 2022-0 No Unknown 3-21 00:00: 00 Dose 2022-0 No Unknown 3-21 00:00: 00 Dose 2022-0 No Unknown 3-21 00:00: 00 Dose 2022-0 No Unknown 3-21 00:00: 00 Xopenex HFA 2-0 No 1mcg/ac 45 3-21 tuation mcg/actuati 00:00: on aerosol 00 inhaler sulfamethox 2-0 No 1mg azole 800 3-21 mg-trimetho 00:00: prim 160 mg 00 tablet amoxicillin 2021-0 No 1mg 875 3-21 mg-potassiu 00:00: m 00 clavulanate 125 mg tablet ibuprofen 2-0 No 1mg 600 mg 3-21 tablet 00:00: 00 Dose 2-0 No Unknown 3-21 00:00: 00 Dose 2-0 No Unknown 3-21 00:00: 00 Dose 2-0 No Unknown 3-21 00:00: 00 Dose 2-0 No Unknown 3-21 00:00: 00 Dose 2-0 No Unknown 3-21 00:00: 00 Dose 2-0 No Unknown 3-21 00:00: 00 Dose 2022-0 No Unknown 3-21 00:00: 00 Dose 2022-0 No Unknown 3-21 00:00: 00 Dose 2-0 No Unknown 3-21 00:00: 00 Dose 2-0 No Unknown 3-21 00:00: 00 Dose 2-0 No Unknown 3-21 00:00: 00 Dose 2022-0 No Unknown 3-21 00:00: 00 Dose 2-0 No Unknown 3-21 00:00: 00 Dose 2-0 No Unknown 3-21 00:00: 00 Dose 2022-0 No Unknown 3-21 00:00: 00 Dose 2022-0 No Unknown 3-21 00:00: 00 Dose 2022-0 No Unknown 3-21 00:00: 00 Dose 2022-0 No Unknown 3-21 00:00: 00 Dose 2-0 No Unknown 3-21 00:00: 00 Dose 2022-0 No Unknown 3-21 00:00: 00 Dose 2022-0 No Unknown 3-21 00:00: 00 Dose 2022-0 No Unknown 3-21 00:00: 00 Dose 2022-0 No Unknown 3-21 00:00: 00 Dose 2022-0 No Unknown 3-21 00:00: 00 Dose 2022-0 No Unknown 3-21 00:00: 00 Dose 2022-0 No Unknown 3-21 00:00: 00 Dose 2022-0 No Unknown 3-21 00:00: 00 Dose 2022-0 No Unknown 3-21 00:00: 00 Dose 2022-0 No Unknown 3-21 00:00: 00 Dose 2022-0 No Unknown 3-21 00:00: 00 Dose 2022-0 No Unknown 3-21 00:00: 00 Dose 2022-0 No Unknown 3-21 00:00: 00 Dose 2022-0 No Unknown 3-21 00:00: 00 Dose 2022-0 No Unknown 3-21 00:00: 00 Dose 2022-0 No Unknown 3-21 00:00: 00 Dose 2022-0 No Unknown 3-21 00:00: 00 Dose 2022-0 No Unknown 3-21 00:00: 00 Dose 2022-0 No Unknown 3-21 00:00: 00 Dose 2022-0 No Unknown 3-21 00:00: 00 Dose 2022-0 No Unknown 3-21 00:00: 00 Dose 2022-0 No Unknown 3-21 00:00: 00 Dose 2022-0 No Unknown 3-21 00:00: 00 Dose 2022-0 No Unknown 3-21 00:00: 00 Dose 2022-0 No Unknown 3-21 00:00: 00 Dose 2022-0 No Unknown 3-21 00:00: 00 Dose 2022-0 No Unknown 3-21 00:00: 00 Dose 2022-0 No Unknown 3-18 00:00: 00 Dose 2022-0 No Unknown 3-18 00:00: 00 Dose 2022-0 No Unknown 3-18 00:00: 00 Dose 2022-0 No Unknown 3-18 00:00: 00 Dose 2022-0 No Unknown 3-18 00:00: 00 Dose 2022-0 No Unknown 3-18 00:00: 00 Dose 2022-0 No Unknown 3-18 00:00: 00 Dose 2022-0 No Unknown 3-18 00:00: 00 Dose 2022-0 No Unknown 3-18 00:00: 00 Dose 2022-0 No Unknown 3-18 00:00: 00 Dose 2022-0 No Unknown 3-18 00:00: 00 Dose 2022-0 No Unknown 3-18 00:00: 00 Dose 2022-0 No Unknown 3-14 00:00: 00 Dose 2022-0 No Unknown 3-14 00:00: 00 Dose 2022-0 No Unknown 3-14 00:00: 00 Dose 2022-0 No Unknown 3-14 00:00: 00 Dose 2022-0 No Unknown 3-14 00:00: 00 Dose 2022-0 No Unknown 3-14 00:00: 00 Dose 2022-0 No Unknown 3-14 00:00: 00 Dose 2022-0 No Unknown 3-14 00:00: 00 Dose 2022-0 No Unknown 3-14 00:00: 00 Dose 2022-0 No Unknown 3-14 00:00: 00 Dose 2022-0 No Unknown 3-14 00:00: 00 Dose 2022-0 No Unknown 3-14 00:00: 00 Dose 2022-0 No Unknown 3-13 00:00: 00 Dose 2022-0 No Unknown 3-13 00:00: 00 Dose 2022-0 No Unknown 3-13 00:00: 00 Dose 2022-0 No Unknown 3-13 00:00: 00 Dose 2022-0 No Unknown 3-13 00:00: 00 Dose 2022-0 No Unknown 3-13 00:00: 00 Dose 2022-0 No Unknown 3-13 00:00: 00 Dose 2022-0 No Unknown 3-13 00:00: 00 Dose 2022-0 No Unknown 3-13 00:00: 00 Dose 2022-0 No Unknown 3-13 00:00: 00 Dose 2022-0 No Unknown 3-13 00:00: 00 Dose 2022-0 No Unknown 3-13 00:00: 00 Dose 2022-0 No Unknown 3-13 00:00: 00 Dose 2022-0 No Unknown 3-13 00:00: 00 Dose 2022-0 No Unknown 3-13 00:00: 00 Dose 2022-0 No Unknown 3-13 00:00: 00 Dose 2022-0 No Unknown 3-13 00:00: 00 Dose 2022-0 No Unknown 3-13 00:00: 00 Dose 2022-0 No Unknown 3-13 00:00: 00 Dose 2022-0 No Unknown 3-13 00:00: 00 Dose 2022-0 No Unknown 3-13 00:00: 00 Dose 2022-0 No Unknown 3-13 00:00: 00 Dose 2022-0 No Unknown 3-13 00:00: 00 Dose 2022-0 No Unknown 3-13 00:00: 00 Dose 2022-0 No Unknown 3-13 00:00: 00 Dose 2022-0 No Unknown 3-13 00:00: 00 Dose 2022-0 No Unknown 3-13 00:00: 00 Dose 2022-0 No Unknown 3-13 00:00: 00 Dose 2022-0 No Unknown 3-13 00:00: 00 Dose 2022-0 No Unknown 3-13 00:00: 00 Zyprexa 5 2022-0 No 1mg mg tablet 2-17 00:00: 00 Zyprexa 5 2022-0 No 1mg mg tablet 2-17 00:00: 00 Zyprexa 5 2022-0 No 1mg mg tablet 2-17 00:00: 00 buspirone 2022-0 No 1mg 15 mg 2-11 tablet 00:00: 00 buspirone 2022-0 No 1mg 15 mg 2-11 tablet 00:00: 00 buspirone 2022-0 No 1mg 15 mg 2-11 tablet 00:00: 00 ProAir HFA 2020-1 No 2mcg/ac 90 0-18 tuation mcg/actuati 00:00: on aerosol 00 inhaler Tessalon 2020-1 No 12mg Perles 100 0-18 mg capsule 00:00: 00 ProAir HFA 1-1 No 2mcg/ac 90 0-18 tuation mcg/actuati 00:00: on aerosol 00 inhaler Tessalon 2020-1 No 12mg Perles 100 0-18 mg capsule 00:00: 00 ProAir HFA 2020-1 No 2mcg/ac 90 0-18 tuation mcg/actuati 00:00: on aerosol 00 inhaler Tessalon 2020-1 No 12mg Perles 100 0-18 mg capsule 00:00: 00 ProAir HFA 2020-1 No 2mcg/ac 90 0-12 tuation mcg/actuati 00:00: on aerosol 00 inhaler ProAir HFA 2020-1 No 2mcg/ac 90 0-12 tuation mcg/actuati 00:00: on aerosol 00 inhaler ProAir HFA 2020-04 No 2mcg/ac 90 0-12 tuation mcg/actuati 00:00: on aerosol 00 inhaler Zithromax 2020-04 No 1mg 250 mg 0-06 tablet 00:00: 00 Flonase 2020-04 No 2mcg/ac Allergy 0-06 tuation Relief 50 00:00: mcg/actuati 00 on nasal spray,suspe nsion Bromfed DM 2020-04 No 10mg/5 2 mg-30 0-06 mL mg-10 mg/5 00:00: mL oral 00 syrup Zithromax 2020-04 No 1mg 250 mg 0-06 tablet 00:00: 00 Flonase 2020-04 No 2mcg/ac Allergy 0-06 tuation Relief 50 00:00: mcg/actuati 00 on nasal spray,suspe nsyordy Bromfed DM 2020-04 No 10mg/5 2 mg-30 0-06 mL mg-10 mg/5 00:00: mL oral 00 syrup Zithromax 2020-04 No 1mg 250 mg 0-06 tablet 00:00: 00 Flonase 2020-04 No 2mcg/ac Allergy 0-06 tuation Relief 50 00:00: mcg/actuati 00 on nasal spray,suspe nsyordy Bromfed DM 2020-04 No 10mg/5 2 mg-30 0-06 mL mg-10 mg/5 00:00: mL oral 00 syrup hydroxyzine 1-0 No 1mg HCl 25 mg 3-04 tablet 00:00: 00 Protonix 40 1-0 No 1mg mg 3-04 tablet,dung 00:00: yed release 00 hydroxyzine 1-0 No 1mg HCl 25 mg 3-04 tablet 00:00: 00 hydroxyzine 2021-0 No 1mg HCl 25 mg 3-04 tablet 00:00: 00 Protonix 40 1-0 No 1mg mg 3-04 tablet,dung 00:00: yed release 00 hydroxyzine 1-0 No 1mg HCl 25 mg 3-04 tablet 00:00: 00 hydroxyzine 2021-0 No 1mg HCl 25 mg 3-04 tablet 00:00: 00 Protonix 40 1-0 No 1mg mg 3-04 tablet,dung 00:00: yed release 00 hydroxyzine 2021-0 No 1mg HCl 25 mg 3-04 tablet 00:00: 00 Protonix 40 2021-0 No 1mg mg 3-03 tablet,dung 00:00: yed release 00 hydroxyzine 2021-0 No 1mg HCl 25 mg 3-03 tablet 00:00: 00 Protonix 40 2021-0 No 1mg mg 3-03 tablet,dung 00:00: yed release 00 hydroxyzine 2021-0 No 1mg HCl 25 mg 3-03 tablet 00:00: 00 Protonix 40 2021-0 No 1mg mg 3-03 tablet,dung 00:00: yed release 00 hydroxyzine 2021-0 No 1mg HCl 25 mg 3-03 tablet 00:00: 00 No known 2020-0 No [facility]: [address] methylpredn 2020-1 No mg isolone 4 1-14 mg tablets 00:00: in a dose 00 pack methylpredn 2020-1 No mg isolone 4 1-14 mg tablets 00:00: in a dose 00 pack methylpredn 2020-1 No mg isolone 4 1-14 mg tablets 00:00: in a dose 00 pack Flagyl 500 2020-1 No 1mg mg tablet 0-28 00:00: 00 Flagyl 500 2020-1 No 1mg mg tablet 0-28 00:00: 00 Flagyl 500 2020-1 No 1mg mg tablet 0-28 00:00: 00 Immunizations Ordered Filled Immunization Date Status Comments [facility] e Immunization Name Name TDAP (ADACEL) 2019-03-10 Completed [facility] V[facility]INE 00:00:00 [facility] TDAP (ADACEL) 2019-03-10 Completed [facility] VACCINE 00:00:00 [facility] TDAP (ADACEL) 2019-03-10 Completed [facility] VACCINE 00:00:00 [facility] TDAP (ADACEL) 2019-03-10 Completed [facility] VACCINE 00:00:00 [facility] TDAP (ADACEL) 2019-03-10 Completed [facility] VACCINE 00:00:00 [facility] TDAP (ADACEL) 2019-03-10 Completed [facility] VACCINE 00:00:00 [facility] TDAP (ADACEL) 2019-03-10 Completed University of VACCINE 00:00:00 [facility] TDAP (ADACEL) 2019-03-10 Completed University of VACCINE 00:00:00 [facility] TDAP (ADACEL) 2019-03-10 Completed University of VACCINE 00:00:00 [place] [facility] TDAP (ADACEL) 2019-03-10 Completed University of VACCINE 00:00:00 [facility] TDAP (ADACEL) 2019-03-10 Completed University of VACCINE 00:00:00 [facility] TDAP (ADACEL) 2019-03-10 Completed University of VACCINE 00:00:00 [facility] TDAP (ADACEL) 2019-03-10 Completed University of VACCINE 00:00:00 [facility] TDAP (ADACEL) 2019-03-10 Completed University of VACCINE 00:00:00 [facility] TDAP (ADACEL) 2019-03-10 Completed University of VACCINE 00:00:00 [facility] MMR 2012-11-22 Completed University of 00:00:00 [facility] MMR 2012-11-22 Completed University of 00:00:00 [facility] MMR 2012-11-22 Completed University of 00:00:00 [facility] MMR 2012-11-22 Completed University of 00:00:00 [facility] MMR 2012-11-22 Completed University of 00:00:00 [facility] MMR 2012-11-22 Completed University of 00:00:00 [facility] MMR 2012-11-22 Completed University of 00:00:00 [facility] MMR 2012-11-22 Completed University of 00:00:00 [facility] MMR 2012-11-22 Completed University of 00:00:00 [facility] MMR 2012-11-22 Completed University of 00:00:00 [facility] MMR 2012-11-22 Completed University of 00:00:00 [facility] MMR 2012-11-22 Completed University of 00:00:00 [facility] MMR 2012-11-22 Completed University of 00:00:00 [facility] MMR 2012-11-22 Completed University of 00:00:00 [facility] MMR 2012-11-22 Completed University of 00:00:00 [facility] HEPATITIS A 2012-10-19 Completed University of 00:00:00 [facility] MMR 2012-10-19 Completed University of 00:00:00 [facility] HEPATITIS A 2012-10-19 Completed University of 00:00:00 [place] [facility] 2012-10-19 Completed University of 00:00:00 [place] [facility] HEPATITIS A 2012-10-19 Completed University of 00:00:00 [facility] MMR 2012-10-19 Completed University of 00:00:00 [facility] HEPATITIS A 2012-10-19 Completed University of 00:00:00 [facility] 2012-10-19 Completed University of 00:00:00 [facility] HEPATITIS A 2012-10-19 Completed University of 00:00:00 [facility] MMR 2012-10-19 Completed University of 00:00:00 [facility] HEPATITIS A 2012-10-19 Completed University of 00:00:00 [place] [facility] 2012-10-19 Completed University of 00:00:00 [facility] HEPATITIS A 2012-10-19 Completed University of 00:00:00 [place] [facility] 2012-10-19 Completed [facility] 00:00:00 [place] [facility] [place] HEPATITIS A 2012-10-19 Completed University of 00:00:00 [place] [facility] 2012-10-19 Completed University of 00:00:00 [place] [facility] HEPATITIS A 2012-10-19 Completed [facility] 00:00:00 [place] [facility] 2012-10-19 Completed University of 00:00:00 [place] [facility] HEPATITIS A 2012-10-19 Completed [facility] 00:00:00 [place] [facility] 2012-10-19 Completed University of 00:00:00 [place] [facility] HEPATITIS A 2012-10-19 Completed [facility] 00:00:00 [place] [facility] 2012-10-19 Completed University of 00:00:00 [facility] HEPATITIS A 2012-10-19 Completed University of 00:00:00 [place] [facility] 2012-10-19 Completed University of 00:00:00 [facility] HEPATITIS A 2012-10-19 Completed University of 00:00:00 [place] [facility] 2012-10-19 Completed University of 00:00:00 [place] [facility] HEPATITIS A 2012-10-19 Completed University of 00:00:00 [place] [facility] 2012-10-19 Completed University of 00:00:00 [place] [facility] HEPATITIS A 2012-10-19 Completed University of 00:00:00 [facility] 2012-10-19 Completed University of 00:00:00 [facility] Vital Signs Vital Name Observation Time Observation Value Comments Source Systolic blood 2022-04-30 148 mm[Hg] pt on the phone University of pressure 20:12:00 [facility] Diastolic blood 2022-04-30 103 mm[Hg] pt on the phone Universit y of pressure 20:12:00 [facility] Heart rate 2022-04-30 108 /min University of 20:12:00 [facility] Systolic blood 2021-09-23 117 mm[Hg] University of pressure 23:07:54 [facility] Diastolic blood 2021-09-23 80 mm[Hg] University o f pressure 23:07:54 [facility] Heart rate 2021-09-23 78 /min University of 23:07:54 [facility] Respiratory rate 2021-09-23 18 /min [facility] 23:07:54 [facility] Oxygen saturation 2021-09-23 98 /min [facility] Arterial blood 23:07:54 [facility] by Pulse oximetry [place] Body temperature 2021-09-23 36.94 Diya [facility] 18:10:00 [facility] Body height 2021-09-23 165.1 cm [facility] 18:10:00 [facility] Body weight 2021-09-23 49.896 kg [facility] 18:10:00 [facility] BMI 2021-09-23 18.30 kg/m2 University 18:10:00 [facility] BP Systolic 2022-03-05 09:57:00 BP Diastolic 2022-03-05 09:57:00 Weight Measured 2022-03-05 09:57:00 Height Measured 2022-03-05 09:57:00 Body Temperature 2022-03-05 09:57:00 Heart Rate 2022-03-05 09:57:00 Respiratory Rate 2022-03-05 09:57:00 BP Systolic 2022-02-13 119 mm[Hg] 14:00:00 BP Diastolic 2022-02-13 84 mm[Hg] 14:00:00 Weight Measured 2022-02-13 121.60 pounds 14:00:00 Height Measured 2022-02-13 65.00 inches 14:00:00 Body Temperature 2022-02-13 97.80 degrees 14:00:00 Heart Rate 2022-02-13 81.00 /min 14:00:00 Respiratory Rate 2022-02-13 14:00:00 BP Systolic 2021-10-30 121 mm[Hg] 14:47:00 BP Diastolic 2021-10-30 84 mm[Hg] 14:47:00 Weight Measured 2021-10-30 112.40 pounds 14:47:00 Height Measured 2021-10-30 65.00 inches 14:47:00 Body Temperature 2021-10-30 98.10 degrees 14:47:00 Heart Rate 2021-10-30 86.00 /min 14:47:00 Respiratory Rate 2021-10-30 14:47:00 BP Systolic 2021-10-18 13:35:00 BP Diastolic 2021-10-18 13:35:00 Weight Measured 2021-10-18 114.60 pounds 13:35:00 Height Measured 2021-10-18 65.00 inches 13:35:00 Body Temperature 2021-10-18 13:35:00 Heart Rate 2021-10-18 13:35:00 Respiratory Rate 2021-10-18 13:35:00 BP Systolic 2021-10-02 139 mm[Hg] 15:22:00 BP Diastolic 2021-10-02 99 mm[Hg] 15:22:00 Weight Measured 2021-10-02 114.60 pounds 15:22:00 Height Measured 2021-10-02 65.00 inches 15:22:00 Body Temperature 2021-10-02 97.60 degrees 15:22:00 Heart Rate 2021-10-02 96.00 /min 15:22:00 Respiratory Rate 2021-10-02 21.00 /min 15:22:00 BP Systolic 2021-09-25 118 mm[Hg] 13:48:00 BP Diastolic 2021-09-25 82 mm[Hg] 13:48:00 Weight Measured 2021-09-25 113.20 pounds 13:48:00 Height Measured 2021-09-25 65.00 inches 13:48:00 Body Temperature 2021-09-25 97.80 degrees 13:48:00 Heart Rate 2021-09-25 104.00 /min 13:48:00 Respiratory Rate 2021-09-25 13:48:00 BP Systolic 2021-08-29 115 mm[Hg] 09:09:00 BP Diastolic 2021-08-29 80 mm[Hg] 09:09:00 Weight Measured 2021-08-29 114.60 pounds 09:09:00 Height Measured 2021-08-29 65.00 inches 09:09:00 Body Temperature 2021-08-29 09:09:00 Heart Rate 2021-08-29 79.00 /min 09:09:00 Respiratory Rate 2021-08-29 09:09:00 BP Systolic 2021-08-22 113 mm[Hg] 13:21:00 BP Diastolic 2021-08-22 75 mm[Hg] 13:21:00 Weight Measured 2021-08-22 110.60 pounds 13:21:00 Height Measured 2021-08-22 65.00 inches 13:21:00 Body Temperature 2021-08-22 97.80 degrees 13:21:00 Heart Rate 2021-08-22 104.00 /min 13:21:00 Respiratory Rate 2021-08-22 13:21:00 BP Systolic 2021-08-15 112 mm[Hg] 13:33:00 BP Diastolic 2021-08-15 76 mm[Hg] 13:33:00 Weight Measured 2021-08-15 115.20 pounds 13:33:00 Height Measured 2021-08-15 65.00 inches 13:33:00 Body Temperature 2021-08-15 98.00 degrees 13:33:00 Heart Rate 2021-08-15 93.00 /min 13:33:00 Respiratory Rate 2021-08-15 21.00 /min 13:33:00 BP Systolic 2021-07-15 111 mm[Hg] 11:40:00 BP Diastolic 2021-07-15 81 mm[Hg] 11:40:00 Weight Measured 2021-07-15 116.80 pounds 11:40:00 Height Measured 2021-07-15 65.00 inches 11:40:00 Body Temperature 2021-07-15 97.30 degrees 11:40:00 Heart Rate 2021-07-15 75.00 /min 11:40:00 Respiratory Rate 2021-07-15 11:40:00 BP Systolic 2021-06-07 133 mm[Hg] 13:24:00 BP Diastolic 2021-06-07 94 mm[Hg] 13:24:00 Weight Measured 2021-06-07 115.60 pounds 13:24:00 Height Measured 2021-06-07 65.00 inches 13:24:00 Body Temperature 2021-06-07 97.60 degrees 13:24:00 Heart Rate 2021-06-07 95.00 /min 13:24:00 Respiratory Rate 2021-06-07 13:24:00 BP Systolic 2021-02-11 114 mm[Hg] 15:04:00 BP Diastolic 2021-02-11 82 mm[Hg] 15:04:00 Weight Measured 2021-02-11 116.20 pounds 15:04:00 Height Measured 2021-02-11 65.00 inches 15:04:00 Body Temperature 2021-02-11 98.50 degrees 15:04:00 Heart Rate 2021-02-11 103.00 /min 15:04:00 Respiratory Rate 2021-02-11 15:04:00 Procedures Procedure Date / Time Performing Clinician Source Performed EXTERNAL PROVIDER 2022-07-01 06:01:00 Doctor Unassigned, No [facility] RECORDS Name Medical Branch AUTHORIZATION FOR 2021-11-25 05:01:00 Doctor Unassigned, No [facility] RELEASE OF PHI Name Medical Branch REFERRAL- 2021-11-11 05:01:00 Doctor Unassigned, No [facility] REQUEST/RESPONSE Name [facility] US PELVIS COMPLETE WITH 2021-10-24 13:17:52 [facility] CT THORAX W CONTRAST 2021-10-24 13:08:26 Requisition, Paper Univ [facility] CT THORAX WO CONTRAST 2021-10-24 13:08:08 [facility] WITH 2021-09-23 22:52:01 Timoteo Amaya [facility] TRANSVAGINAL [facility] CT ABDOMEN PELVIS W 2021-09-23 20:02:13 Timoteo Amaya [facility] CONTRAST [facility] COMP. METABOLIC PANEL 2021-09-23 19:12:00 Timoteo Amaya [facility] ([id number]) [facility] CBC WITH DIFF 2021-09-23 19:12:00 Timoteo Amaya [place] o [facility] POCT TEST 2021-09-23 18:47:00 Timoteo Amaya Universi ty [facility] URINALYSIS 2021-09-23 18:41:00 Timoteo Amaya Arkoma o f [facility] NOTICE OF PRIVACY 2021-09-23 17:59:15 Doctor Unassigned, No [facility] [place] PRACTICES Name [facility] CONSENT/REFUSAL FOR 2021-09-23 17:59:01 Doctor Unassigned, No [facility] [place] DIAGNOSIS AND TREATMENT Name [facility] [id number] Colposcopy Cervix 2021-08-29 00:00:00 Bx Cervix endocrv Curtg Plan of Care Planned Activity Planned Date Details Comments Source Goal Plan of Care Note [code = 74130-8] Goal Plan of Care Note [code = 42299-3] Goal Plan of Care Note [code = 43345-1] Goal Plan of Care Note [code = 97207-9] Goal Plan of Care Note [code = 79969-2] Goal Plan of Care Note [code = 13414-3] Goal Plan of Care Note [code = 09412-2] Goal Plan of Care Note [code = 16033-1] Goal Plan of Care Note [code = 60083-7] Goal Plan of Care Note [code = 75824-8] Goal Plan of Care Note [code = 94272-9] Goal Plan of Care Note [code = 18448-4] Goal Plan of Care Note [code = 28247-5] Goal Plan of Care Note [code = 76838-5] Goal Plan of Care Note [code = 55208-4] Goal Plan of Care Note [code = 39526-0] Goal Plan of Care Note [code = 00988-7] Goal Plan of Care Note [code = 66561-4] Goal Plan of Care Note [code = 75158-8] Goal Plan of Care Note [code = 61576-7] Goal Plan of Care Note [code = 09186-2] Goal Plan of Care Note [code = 67514-6] Goal Plan of Care Note [code = 15651-0] Goal Plan of Care Note [code = 11405-9] Goal Plan of Care Note [code = 49958-3] Goal Plan of Care Note [code = 51896-2] Goal Plan of Care Note [code = 10575-6] Goal Plan of Care Note [code = 16207-6] Goal Plan of Care Note [code = 22942-2] Goal Plan of Care Note [code = 00490-6] Goal Plan of Care Note [code = 18714-9] Goal Plan of Care Note [code = 18865-0] Goal Plan of Care Note [code = 80065-7] Goal Plan of Care Note [code = 53444-9] Goal Plan of Care Note [code = 39911-5] Goal Plan of Care Note [code = 59562-7] Goal Plan of Care Note [code = 43090-5] Goal Plan of Care Note [code = 78048-9] Goal Plan of Care Note [code = 56594-2] Goal Plan of Care Note [code = 38390-2] Goal Plan of Care Note [code = 13683-6] Goal Plan of Care Note [code = 67485-5] Goal Plan of Care Note [code = 95203-0] Goal Plan of Care Note [code = 08726-5] Goal Plan of Care Note [code = 41060-8] Goal Plan of Care Note [code = 13758-1] Goal Plan of Care Note [code = 31411-9] Goal Plan of Care Note [code = 98695-8] Goal Plan of Care Note [code = 69318-9] Goal Plan of Care Note [code = 37456-7] Goal Plan of Care Note [code = 27628-3] Goal Plan of Care Note [code = 67433-5] Goal Plan of Care Note [code = 89511-8] Goal Plan of Care Note [code = 36367-6] Goal Plan of Care Note [code = 80953-9] Goal Plan of Care Note [code = 10544-6] Goal Plan of Care Note [code = 06732-4] Goal Plan of Care Note [code = 49441-4] Goal Plan of Care Note [code = 94591-0] Goal Plan of Care Note [code = 14101-5] Goal Plan of Care Note [code = 28840-4] Goal Plan of Care Note [code = 89875-3] Goal Plan of Care Note [code = 13447-6] Goal Plan of Care Note [code = 89826-4] Goal Plan of Care Note [code = 61571-6] Goal Plan of Care Note [code = 58667-6] Goal Plan of Care Note [code = 94732-4] Goal Plan of Care Note [code = 19673-6] Goal Plan of Care Note [code = 66904-5] Goal Plan of Care Note [code = 32048-5] Goal Plan of Care Note [code = 13976-4] Goal Plan of Care Note [code = 51323-0] Goal Plan of Care Note [code = 18261-1] Goal Plan of Care Note [code = 82688-9] Goal Plan of Care Note [code = 71729-7] Goal Plan of Care Note [code = 90635-2] Goal Plan of Care Note [code = 95808-1] Goal Plan of Care Note [code = 57811-3] Goal Plan of Care Note [code = 29925-1] Goal Plan of Care Note [code = 53955-7] Goal Plan of Care Note [code = 50070-3] Goal Plan of Care Note [code = 22556-2] Goal Plan of Care Note [code = 49139-5] Goal Plan of Care Note [code = 52570-1] Goal Plan of Care Note [code = 80976-0] Goal Plan of Care Note [code = 96678-2] Goal Plan of Care Note [code = 82022-1] Goal Plan of Care Note [code = 79875-5] Goal Plan of Care Note [code = 35096-2] Goal Plan of Care Note [code = 98036-0] Goal Plan of Care Note [code = 55544-1] Goal Plan of Care Note [code = 12303-7] Goal Plan of Care Note [code = 60029-4] Goal Plan of Care Note [code = 52709-4] Goal Plan of Care Note [code = 41077-0] Goal Plan of Care Note [code = 51717-3] Goal Plan of Care Note [code = 37229-5] Goal Plan of Care Note [code = 55831-1] Goal Plan of Care Note [code = 53326-1] Goal Plan of Care Note [code = 96952-7] Goal Plan of Care Note [code = 93015-2] Goal Plan of Care Note [code = 13816-1] Goal Plan of Care Note [code = 55774-1] Goal Plan of Care Note [code = 28585-6] Goal Plan of Care Note [code = 23501-5] Goal Plan of Care Note [code = 40797-2] Goal Plan of Care Note [code = 72309-3] Goal Plan of Care Note [code = 81458-9] Goal Plan of Care Note [code = 38639-7] Goal Plan of Care Note [code = 09252-2] Goal Plan of Care Note [code = 77515-7] Goal Plan of Care Note [code = 35483-1] Goal Plan of Care Note [code = 46226-0] Goal Plan of Care Note [code = 86980-9] Goal Plan of Care Note [code = 02491-2] Goal Plan of Care Note [code = 46805-2] Goal Plan of Care Note [code = 07256-9] Goal Plan of Care Note [code = 26787-8] Goal Plan of Care Note [code = 29473-6] Goal Plan of Care Note [code = 20562-4] Goal Plan of Care Note [code = 73008-1] Goal Plan of Care Note [code = 85302-3] Goal Plan of Care Note [code = 24185-1] Goal Plan of Care Note [code = 12971-0] Goal Plan of Care Note [code = 96928-8] Goal Plan of Care Note [code = 12047-7] Goal Plan of Care Note [code = 48030-9] Goal Plan of Care Note [code = 34691-2] Goal Plan of Care Note [code = 87033-3] Goal Plan of Care Note [code = 44056-3] Goal Plan of Care Note [code = 89288-9] Goal Plan of Care Note [code = 55411-0] Goal Plan of Care Note [code = 52478-8] Goal Plan of Care Note [code = 97247-2] Goal Plan of Care Note [code = 19923-6] Goal Plan of Care Note [code = 58091-4] Goal Plan of Care Note [code = 35704-4] Goal Plan of Care Note [code = 57633-2] Goal Plan of Care Note [code = 37072-6] Goal Plan of Care Note [code = 95639-4] Goal Plan of Care Note [code = 91782-7] Goal Plan of Care Note [code = 30373-5] Goal Plan of Care Note [code = 60840-0] Goal Plan of Care Note [code = 31743-6] Goal Plan of Care Note [code = 57345-3] Goal Plan of Care Note [code = 86398-3] Goal Plan of Care Note [code = 82638-9] Goal Plan of Care Note [code = 15745-6] Encounters Start End Encounter Admission Attending Care Care Encounter Source Date/Time Date/Time Type Type Clinicians Facility Department ID 2021-02-23 Emergency [facility] [id number] Univers 16:17:01 [facility] 2021-02-22 Emergency X VALDO, [facility] SPL [id number] Univers 13:07:11 YANICK [facility] 2022-11-17 2022-11-17 Outpatient SFA SFA [id number] Azam 13:05:19 13:05:19 0724 [facility] 2022-11-10 2022-11-10 Outpatient SFA SFA [id number] Azam 10:41:21 10:41:21 0717 [facility] 2022-11-08 2022-11-08 Outpatient SFA SFA [id number] Azam 14:16:42 14:16:42 0715 [facility] 2022-10-31 2022-10-31 Outpatient SFA SFA [id number] Azam 14:26:52 14:26:52 0707 [facility] 2022-10-27 2022-10-27 Outpatient SFA SFA [id number] Azam 11:18:15 11:18:15 0703 [facility] 2022-10-24 2022-10-24 Outpatient SFA SFA [id number] Azam 15:42:10 15:42:10 0630 [facility] 2022-07-08 2022-07-08 Outpatient SFA SFA [id number] Azam 14:24:41 14:24:41 0314 [facility] 2022-07-01 2022-07-01 Orders Doctor HEATHER 1.2.840.114 [id number] Univers 00:00:00 00:00:00 Only Unassigned, LILIAN 350.1.13.10 ity of [place] [facility] 4.2.7.2.686 Segun as [id number] [address] 2022-05-07 2022-05-07 Telephone Marilynn [facility] 1.2.840.114 [id number] Univers 00:00:00 00:00:00 Cathie Park HEALTH 350.1.13.10 it y of [place] 4.2.7.2.686 Segun as MORRO?BLEA [id number] Ia dutch RAJAN [address] [facility] OFFICE [facility] 2022-05-05 2022-05-05 [facility]phone [facility] 1.2.840.114 [id number] Univers 00:00:00 00:00:00 Cathie Park HEALTH 350.1.13.10 it y of [place] 4.2.7.2.686 Segun as MORRO?BLEA [id number] Ia dutch RAJAN [address] [place] [address] 2022-05-01 2022-05-01 Outpatient Opal PINK [facility] [id number] Univers 16:00:00 16:00:00 [facility] 2022-04-30 2022-04-30 Office [facility] 1.2.042.429 [id number] Univers 14:30:00 14:30:00 Visit Cathie MONTERO 350.1.13.10 it y of [place] 4.2.7.2.686 Segun as MORRO?BLEA [id number] Ia dutch RAJAN [address] [place] [address] 2022-04-30 2022-04-30 [id number] Univers 14:30:00 14:22:11 [facility] 2022-04-29 2022-04-29 [facility] [id number] Univers 14:00:00 14:00:00 [facility] 2022-04-29 2022-04-29 [facility]phone [facility] 1.2.141.935 [id number] Univers 00:00:00 00:00:00 Rivera Warren HEALTH 350.1.13.10 it y of [place] 4.2.7.2.686 Segun as MORRO?BLEA [id number] Ia dutch RAJAN [address] [place] [address] OFFICE [facility] 2022-04-28 2022-04-28 Telephone [facility] 1.2.840.114 [id number] Univers 00:00:00 00:00:00 Cathie L HEALTH 350.1.13.10 it y of [place] 4.2.7.2.686 Segun as MORRO?BLEA [id number] Ia dutch RAJAN [address] [place] [address] MEDICAL OFFICE [facility] 2022-04-25 2022-04-25 Outpatient [facility] [id number] Azam 10:00:19 10:00:19 1230 F Donav[place] 2022-04-01 2022-04-01 Outpatient Opal JESSE DONG [facility] [id number] Univers 14:00:00 14:00:00 ity [facility] 2022-03-27 2022-03-27 Outpatient Opal IKER [facility] [id number] Univers 13:30:00 13:30:00 [facility] 2022-03-05 2022-03-05 Outpatient [id number] 00:00:00 00:00:00 Visit [id number] p12-477o-z -s06j-ptg 71d-bbd24e [id number] 9a5bdc 2022-02-14 2022-02-14 Outpatient Opal KLINE [facility] [id number] Univers 09:30:00 09:30:00 REINA shipley [facility] 2022-02-13 2022-02-13 Outpatient [facility] [id number] Azam 13:45:00 13:45:00 1020 F Donavon 2022-02-13 2022-02-13 Outpatient [id number] 00:00:00 00:00:00 Visit [id number]-427d 32d-427d-a -cc64-79u [id number] d971ae 2021-11-25 2021-11-25 Orders Doctor ROMERO 1.2.840.114 [id number] Univers 00:00:00 00:00:00 Only Unassigned, LILIAN 350.1.13.10 ity of [place] [facility] 4.2.7.2.686 Segun as [id number] [address] 2021-11-11 2021-11-11 Orders Doctor ROMERO 1.2.840.114 [id number] Univers 00:00:00 00:00:00 Only Unassigned, LILIAN 350.1.13.10 ity of [place] [facility] 4.2.7.2.686 Segun as [id number] [place] [address] Branch 2021-10-30 2021-10-30 Outpatient [id number] 00:00:00 00:00:00 Visit [id number]-o -hp4m-1gq [id number] [id number] 2021-10-24 2021-10-24 Outpatient R RADIOLOGY [facility] [id number] Univers 07:29:35 23:59:00 ity of [facility] 2021-10-24 2021-10-24 Hospital Radiology [facility] 1.2.840.114 [id number] Univers 07:29:35 23:59:00 Encounter HEALTH 350.1.13.10 [place] [id number] [facility] [address] ([facility] 2021-10-24 2021-10-24 Hospital Radiology [facility] 1.2.840.114 [id number] Univers 07:28:55 07:28:55 Encounter HEALTH 350.1.13.10 [place] [id number] [facility] [address] [place] ([facility]) 2021-10-24 2021-10-24 Hospital Radiology [facility] 1.2.840.114 [id number] Univers 07:28:21 07:28:21 Encounter HEALTH 350.1.13.10 [place] [id number] [place] [address] [place] ([facility]) 2021-10-24 2021-10-24 Outpatient R RADIOLOGY [facility] [id number] Univers 00:00:00 00:00:00 ity of [facility] 2021-09-23 2021-09-23 Emergency X JOSE LUIS [facility] ERT [id number] Univers 13:12:00 18:47:00 TIMOTEO ity of [facility] 2021-09-23 2021-09-23 Emergency [facility] [id number] Univers 13:12:00 18:47:00 Tim[place] JEREZ [id number] i ty of [place] [id number] [place] [facility] [id number] [facility] 084 Branch 2021-09-23 2021-09-23 Orders Doctor HEATHER [id number] Univers 00:00:00 00:00:00 Only Unassigned, LILIAN 350.1.13.10 ity of [facility] 4.2.7.2.686 Segun [phone] [facility] [address] 2021-01-03 2021-01-03 Outpatient R HORTENCIA [facility] [id number] Univers 15:45:00 15:45:00 KAREN [facility] 2020-08-09 2020-08-09 Outpatient R HORTENCIA [facility] [id number] Univers 00:00:00 00:00:00 [facility] 2020-06-18 2020-06-18 Outpatient R [facility] [id number] Univers 10:00:00 10:00:00 [facility] 2020-05-23 2020-05-23 Outpatient R HORTENCIA [facility] [id number] Univers 14:45:00 14:45:00 KAREN [facility] 2020-05-15 2020-05-15 Outpatient R [facility] [id number] Univers 13:00:00 13:00:00 [facility] 2020-05-11 2020-05-11 Outpatient R [facility] [id number] Univers 13:30:00 13:30:00 [facility] 2020-05-09 2020-05-09 Outpatient R HORTENCIA [facility] [id number] Univers 10:30:00 10:30:00 KAREN [facility] 2020-04-04 2020-04-04 Outpatient R KIRK [facility] [id number] Univers 09:45:00 09:45:00 BRYN shipley o f [facility] 2019-12-28 2019-12-28 Outpatient R VALDO, [facility] [id number] Univers 09:15:00 09:15:00 YANICK [facility] 2019-12-28 2019-12-28 Outpatient FERGUSON_CLAUDY MEHOP [facility] [id number] [place] 05:38:00 05:38[place] [id number] [facility] 2019-12-09 2019-12-09 Outpatient FERGUSON_CLAUDY MEHOP [facility] [phone] [place] 09:26:00 09:26[place] [id number] [facility] 2019-08-04 2019-08-04 Outpatient R [facility] [id number] Univers 13:30:00 13:30:00 [facility] 2019-07-25 2019-07-25 Outpatient R AMIRA [facility] [id number] Univers 08:00:00 08:00:00 RENUKA Hauser [facility] 2019-07-18 2019-07-18 Outpatient R [facility] [id number] Univers 14:00:00 14:00:00 [facility] 2019-07-18 2019-07-18 Outpatient R AMIRA [facility] [id number] Univers 10:00:00 10:00:00 RENUKA Hauser o viv [facility] 2019-07-11 2019-07-11 Outpatient R DONGRAQUELEN [facility] [id number] Univers 15:00:00 15:00:00 [facility] 2019-06-20 2019-06-20 Outpatient R HORTENCIA, [facility] [id number] Univers 11:00:00 11:00:00 KAREN [facility] 2019-05-10 2019-05-10 Outpatient R CARL WORKMAN [facility] [id number] Univers 08:56:42 23:59:00 [facility] 2019-04-28 2019-04-28 Outpatient P EDUARDO, [facility] [id number] Univers 14:00:00 14:00:00 AMNA [facility] 2019-04-18 2019-04-18 Outpatient P ANNA MARIE, [facility] [id number] Univers 15:00:00 16:35:19 RUSTAM [facility] 2019-04-14 2019-04-14 Outpatient P ISRAEL PEREZ [facility] [id number] Univers 15:30:00 16:09:05 ISRAEL PEREZ [facility] 2019-04-07 2019-04-07 Outpatient P DEBORAH [facility] [id number] Univers 09:30:00 14:57:02 LENNOX [facility] 2019-01-27 2019-01-27 Outpatient P ANNA MARIE [facility] [id number] Univers 15:00:00 15:00:00 RUSTAM [facility] 2019-01-26 2019-01-26 Outpatient P TAMIKO [facility] [id number] Univers 14:30:00 14:25:24 AZEB [facility] 2018-12-30 2018-12-30 Outpatient P EDUARDO [facility] [id number] Univers 10:00:00 11:14:24 AMNA [facility] 2018-12-29 2018-12-29 Outpatient P KERENILDAJose [facility] [id number] Univers 10:45:00 10:45:00 MOCK [facility] Results Test Description Test Time Test Comments Results Result Comments Source PAP TEST, THINPREP, IMAGED 2022-04-30 12:31:46 Test Item Value Reference Range Interpretation Comme nts SOURCE: (test code = Cervical 8001) SLIDES: (test code = 1 8011) LMP: (test code = 8021) NOT GIVEN SPECIMEN ADEQUACY: (test (NOTE) Sa tisfactory for evaluation. code = 14066) Endocervical cells/transform ation zone component prese nt. INTERPRETATION: (test NILM/NO EPITH. ---- code = 28614) ABNORMALITY;SEE BELOW ----- ------ NEGA TIVE FOR INTRAEPITHELIAL LESION OR MALIGNANCY (NIL M) --------- MARINE WELDER: (test Devora Menezes CT (ASCP) code = 8101) LOCATION: (test code = (NOTE) Speci mens processed and 43700) [facility] [address] [place] [address], , CLIA: [id number] CPT: (test code = 8140) (NOTE) 8817 5 UNLESS OTHERWISE INDICATED, COMP UTER AIDED AND CYTOTECHNOLOGIS T SCREENING PERFORMED. The Pap test is a screening test with an inherent, but low probabi lity of error. Your patient sh ould be reminded to consult you immediately if she experiences any suspicious signs or sympto ms, regardless of her Pap test re sult. An alternate repor t format containing imag es or consolidated pr ior Pap history is available as applicable. HPV HIGH RISK WITH GENOTYPE, [id number] 12:26:32 Test Item Value Reference Range Interpretation Comments HPV HIGH RISK INTERP NEGATIVE NEGATIVE (test code = 09982) HPV 16 (test code = NEGATIVE 52652) HPV 18 (test code = NEGATIVE 09954) HPV, HR, OTHER NEGATIVE Testing meth odology is GENOTYPES (test code real-ti me PCR utilizing = 44112) hydrolysis prob es with the [employer] Jenniffer 4800 system. The kezia t individually de tects genotypes 16 an d 18, as well as the oth er 12 high risk types (31,33,35,39,45 ,51,52,56 ,58,59,66,68). The expected result is negative. A neg ative result does not rule out the presence of HPV not included in the genotype set, a low leve l of infection or sp ecimen sampling error. UNLESS OTHERWISE INDIC ATED, ALL TESTING PERFORM ED ATCL[facility]ICAL PATH [facility]LOGY LABORATORIES, I [place]. [address] [place] [address] LABORATORY DIRE CTOR: TERRI GARDNER M.D. CLIA NUMBER [id number] [place]. [id number] CT/NG, NAAT, [id number] 17:17:22 Test Item Value Reference Range Interpretation Comments CHLAMYDIA, NAAT, NEGATIVE NEGATIVE A negative result does THINPREP (test code not excl ude low level = 37600) infection, specimensamplin g error, or collection erro r. Testing is performed wi th the [employer] Jenniffer 680 systems usingre al-time Polymerase Josue n Reaction (PCR) method. GONORRHEA, NAAT, NEGATIVE NEGATIVE A negative result does THINPREP (test code not excl ude low level = 49001) infection, specimensamplin g error, or collection erro r. Testing is performed wi th the [employer] Jenniffer 680 systems usingre al-time Polymerase Josue n Reaction (PCR) method. VAGINAL PATHOGENS DNA [id number] 12:33:41 Test Item Value Reference Range Interpretation Comments DWIGHT SPECIES NEGATIVE NEGATIVE (test code = ) G. VAGINALIS POSITIVE NEGATIVE A (test code = ) T. VAGINALIS NEGATIVE NEGATIVE Note: The BD A ffirm VPIII (test code = Microbial Ident ification ) Testis a DNA pr obe test intended for us e in the detectionand id entification of Dwight spec ies, Gardnerellavagi nalis and Trichomonas vag inalis nucleic acid. HIV 1/2 4TH GEN, RFLX [id number] 03:14:00 Test Item Value Reference Range Interpretation Comments HIV 1/2 4TH GEN, RFLX CONF (test NON-REACTIVE NON-REACTIVE code = 3514) HEPATITIS PANEL, [id number] 03:14:00 Test Item Value Reference Range Interpretation Comments HEPATITIS A IgM (test NON-REACTIVE NON-REACTIVE code = 11565) HEPATITIS B CORE IgM NON-REACTIVE NON-REACTIVE (test code = 4644) HEPATITIS B SURF AG NON-REACTIVE NON-REACTIVE (test code = 2739) HEPATITIS C ANTIBODY NON-REACTIVE NON-REACTIVE (test code = 4675) INTERPRETATION (NOTE) Hepatitis A HEPATITIS A: (test serology shows no code = 2552) evidence of acu te hepatitis A. INTERPRETATION (NOTE) Hepatitis B HEPATITIS B: (test serology shows no code = 36279) evidence of ac [place] hepatitis B and no indication of exposure to hepatitis B vir us in the previous si xto eight months. INTERPRETATION (NOTE) Hepatitis C HEPATITIS C: (test serology shows no code = 32639) evidence of ex posure to hepatitisC v irus at this time. I t can take up to 12 m onths after exposure tothe hepatitis C vir us for antibodies to become detectab le in the blood in certain patient s. UNLESS OTHERWIS E INDICATED, ALL TESTING PERFORM ED ATCLINICAL PATH OLOGY LABORATORIES, I [place]. [address] [facility] [place] [address] [facility] DIRECTOR: TERRI MCCRARY M.D. CLIA NUMBER [id number] [place] [id number] 02:43:33 Test Item Value Reference Range Interpretation Comments RPR RESULT (test code = NON-REACTIVE NON-REACTIVE 3501) RPR TITER (test code = 3500) NOT INDIC. TITER NOT INDIC. COMP. METABOLIC PANEL (34709)2021-09-23 19:42:47 Test Item Value Reference Range Interpretation Comments NA (test code = 138 mmol/L 135-145 3371736383) K (test code = 4.8 mmol/L 3.5-5.0 6622207378) CL (test code = 102 mmol/L 98-108 9812788535) CO2 TOTAL (test code 25 mmol/L 23-31 = 0964097539) AGAP (test code = 2-16 8612955842) BUN (test code = 15 mg/dL 7-23 4464152242) GLUCOSE (test code = 90 mg/dL 70-110 3121741273) CREATININE (test code 0.64 mg/dL 0.50-1.04 = 5289748051) TOTAL BILI (test code 0.8 mg/dL 0.1-1.1 = 0366578557) CALCIUM (test code = 9.9 mg/dL 8.6-10.6 0652173980) T PROTEIN (test code 7.8 g/dL 6.3-8.2 = 3310811276) ALBUMIN (test code = 5.0 g/dL 3.5-5.0 9320441484) ALK PHOS (test code = 84 U/L 34-122 5495973124) ALTv (test code = 14 U/L 5-35 1742-6) AST(SGOT) (test code 23 U/L 13-40 = 1266402204) eGFR (test code = mL/min/1.73m2 1613809610) [place] (test code = [place]) Association of Glomerular Filtration Rate (GFR) and Staging of Kidney Disease* + + +- +| GFR (mL/min/1.73 m2) ?| With Kidney Damage ?| ?Without Kidney Damage+ ------+ ----+ ------+| ?>90 ?| ?Stage one ?| ? Normal ?+ -+ + -+| ?60-89 ?| ?Stage two ?| ? Decreased GFR ? + + +- +| ?30-59 ?| ?Stage three ?| ? Stage three ? + + +- +| ?15-29 ?| ?Stage four ? | ? Stage four ?+ -+ + -+| ?<15 (or dialysis) ? ?| ?Stage five ? | ? Stage five ?+ -+ + -+ *Each stage assumes the associated GFR level [...] or urine or abnormalities in imaging tests). [facility] WITH [id number] 19:29:29 Test Item Value Reference Range Interpretation Comments WBC (test code = See_Comment [Automated 4895-2) message] The sy stem which generated this result transmitted reference range : 4.30 - 11.10 10*3/?L. The reference range was not used to interpret this result as normal/abnormal . RBC (test code = See_Comment [Automated 068-1) message] The sy stem which generated this [...] RDW-SD (test code = 42.0 fL 39.0-49.9 37876-8) RDW-CV (test code = 12.1 % 12.0-15.5 788-0) PLT (test code = See_Comment [Automated 777-3) message] The sy stem which generated this result transmitted reference range : 166 - 358 10*3/ ?L. The reference r vicente was not used to interpret this result as normal/abnormal . MPV (test code = 10.0 fL 9.5-12.9 92925-3) NRBC/100 WBC (test See_Comment [Automat ed code = 9608361331) message] The system which generated this result transmitted reference range : 0.0 - 10.0 /100 WBCs. The refer ence range was not u sed to interpret th is result as normal/abnormal . NRBC x10^3 (test code <0.01 See_Comment [Auto mated = 6219366432) message] The s ystem which generated this result transmitted reference range : 10*3/?L. The reference range was not used to interpret this result as normal/abnormal . GRAN MAT (NEUT) % 65.5 % (test code = 770-8) IMM GRAN % (test code 0.40 % = 9629239536) LYMPH % (test code = 20.6 % 736-9) MONO % (test code = 10.5 % 5905-5) EOS % (test code = 2.1 % 713-8) BASO % (test code = 0.9 % 706-2) GRAN MAT x10^3(ANC) 5.61 10*3/uL 1.88-7.09 (test code = 9563440228) IMM GRAN x10^3 (test 0.03 10*3/uL 0.00-0.06 code = 8409917257) LYMPH x10^3 (test code 1.76 10*3/uL 1.32-3.29 = 731-0) MONO x10^3 (test code 0.90 10*3/uL 0.33-0.92 = 742-7) EOS x10^3 (test code = 0.18 10*3/uL 0.03-0.39 711-2) BASO x10^3 (test code 0.08 10*3/uL 0.01-0.07 H = 704-7) Lab Interpretation Abnormal (test code = 40221-1) [facility] [id number] 18:47:00 Test Item Value Reference Range Interpretation Comments POCT PREG (test code = 1605) Negative On board controls acceptable with Present C Line (test code = 3574) POCT PREG LOT # (test code = 3575) [id number] POCT PREG TEST DATE (test 02-24-2023 code = 3576) Lab Interpretation (test code = Normal 14405-9) [facility] [id number] 11:20:57 Test Item Value Reference Interpretation Comments [...] abnormal code = 8205) Pap (accession # [id number]) isreviewed. The atypical cells identified on t he Pap slidecorrelate with the biopsy findings. MICROSCOPIC (NOTE) A) The endometr ium shows benign DESCRIPTION: glands lined by a low (test code = columnarepithel ium with scant 8210) cytoplasm, alig karri nuclei and nosignificant m itotic activity. These are surro unded byunremarkable stroma. The sample contains minima l endocervicalgla ndular epithelium. No atypia or po lyp is noted. B) Cervical transf ormation zone mucosa shows ch ronic inflammationand mild reactive cellular change s. A stain for p16 is performedwit h an appropriately staining positi ve control and is negativein the patient tissue. No dysplasia or ma lignancy is identified. C) Cervical squamous mucosa is prese nt without contiguoustrans formation zone. Endocervical gl ands are seen in theunderlying s troma. There is mild acute and chronic inflammationwit h reactive cellular change s. A stain for p16 is performedwit h an appropriately staining positi ve control and is negativein the patient tissue. No dysplasia or ma lignancy is seen. D) The biopsy c onsists of benign squamous mucosa . Squamocolumnart ransformation [...] 8220) COLOR: TanNUMBE R OF TISSUE PIECES: multipl eSUBMITTED IN CASSETTE(S): x1 MEDIUM: FormalinCOMMENT S:Filtered and entirely submit damon. B) SPECIMEN LABELED: Cervix , 3 o'clockSIZE/RAMONA GHT: 0.3x0.2x0.1 cm AggregateSPE CIMEN COLOR: TanNUMBER OF TI SSUE PIECES: multipleSUBMITT ED IN CASSETTE(S): [id number]: FormalinCOMMENT S:Entirely submitted intac t. C) SPECIMEN LABELED: Cervix , 6 o'clockSIZE/RAMONA GHT: 0.3x0.2x0.1 cm SPECIMEN COL OR: TanNUMBER OF TISSUE PIECES: 1SUBMITTED IN CASSETTE(S): x1 MEDIUM: FormalinCOMMENT S:Entirely submitted intac t. D) SPECIMEN LABELED: Cervix , 9 o'clockSIZE/RAMONA GHT: 0.3x0.2x0.1 cm SPECIMEN COL OR: TanNUMBER OF TISSUE PIECES: 1SUBMITTED IN CASSETTE(S): x1 MEDIUM: FormalinCOMMENT S:Entirely submitted intac t. E) SPECIMEN LABELED: Cervix , 11 o'clockSIZE/RAMONA GHT: 0.4x0.3x0.3 cm SPECIMEN COL OR: TanNUMBER OF TISSUE PIECES: 1SUBMITTED IN CASSETTE(S): x1 MEDIUM: FormalinCOMMENT S:Entirely submitted intac t. PATHOLOGIST: (NOTE) Charisma tejadahip Specimens (test code = processed at [facility] Path[facility] 8250) Laboratories, [address] [place] [address] 4, , CLIA: [id number] interpreted at [facility], [address] [address] 5, , CLIA: [id number] DISCLAIMER (test (NOTE) IHC antibod ies are interpreted in code = 38971) the presence o f appropriatelyfu nctioning controls unless otherwis e noted. CPT: (test code (NOTE) 49619c4, 883 05x5 UNLESS OTHERWISE = 8400) INDICATED, ALL TESTING PERFORMED [facility] PATH [facility], I [place]. [address] [place] [address] 4 STOCK MIXER: TERRI MCCRARY M.D. CLIA NUMBER [id number] CAP ACCREDITATION N O. [id number] SURGICAL PATHOLOGY [id number] 00:00:00 Test Item Value Reference Range Interpretation Comments DIAGNOSIS: (test code = 8200) (NOTE) COMMENTS: (test code = 8205) (NOTE) MICROSCOPIC DESCRIPTION: (test code = (NOTE) 8210) CLINICAL DATA: (test code = 8401) (NOTE) GROSS DESCRIPTION: (test code = 8220) (NOTE) PATHOLOGIST: (test code = 8250) (NOTE) DISCLAIMER (test code = 91495) (NOTE) CPT: (test code = 8400) (NOTE) SURGICAL PATHOLOGY [id number] 00:00:00 Test Item Value Reference Range Interpretation Comments DIAGNOSIS: (test code = 8200) (NOTE) COMMENTS: (test code = 8205) (NOTE) MICROSCOPIC DESCRIPTION: (test code = (NOTE) 8210) CLINICAL DATA: (test code = 8401) (NOTE) GROSS DESCRIPTION: (test code = 8220) (NOTE) PATHOLOGIST: (test code = 8250) (NOTE) DISCLAIMER (test code = 03424) (NOTE) CPT: (test code = 8400) (NOTE) SURGICAL PATHOLOGY [id number] 00:00:00 Test Item Value Reference Range Interpretation Comments DIAGNOSIS: (test code = 8200) (NOTE) COMMENTS: (test code = 8205) (NOTE) MICROSCOPIC DESCRIPTION: (test code = (NOTE) 8210) CLINICAL DATA: (test code = 8401) (NOTE) GROSS DESCRIPTION: (test code = 8220) (NOTE) PATHOLOGIST: (test code = 8250) (NOTE) DISCLAIMER (test code = 11404) (NOTE) CPT: (test code = 8400) (NOTE) SURGICAL PATHOLOGY [id number] 00:00:00 Test Item Value Reference Range Interpretation Comments DIAGNOSIS: (test code = 8200) (NOTE) COMMENTS: (test code = 8205) (NOTE) MICROSCOPIC DESCRIPTION: (test code = (NOTE) 8210) CLINICAL DATA: (test code = 8401) (NOTE) GROSS DESCRIPTION: (test code = 8220) (NOTE) PATHOLOGIST: (test code = 8250) (NOTE) DISCLAIMER (test code = 26871) (NOTE) CPT: (test code = 8400) (NOTE) SURGICAL PATHOLOGY [id number] 00:00:00 Test Item Value Reference Range Interpretation Comments DIAGNOSIS: (test code = 8200) (NOTE) COMMENTS: (test code = 8205) (NOTE) MICROSCOPIC DESCRIPTION: (test code = (NOTE) 8210) CLINICAL DATA: (test code = 8401) (NOTE) GROSS DESCRIPTION: (test code = 8220) (NOTE) PATHOLOGIST: (test code = 8250) (NOTE) DISCLAIMER (test code = 49505) (NOTE) CPT: (test code = 8400) (NOTE) PAP TEST, THINPREP, [id number] 11:12:17 Test Item Value Reference Range Interpretation Comments SOURCE: (test code = Cervical/Endo 8001) cervical SLIDES: (test code = 1 8011) LMP: (test code = 08/05/2021 8021) SPECIMEN ADEQUACY: (NOTE) Satisfac doreen for (test code = 36231) evaluati on. Endocervical cells/transform ation zone component present. INTERPRETATION: ASCUS/EPITH. A (test code = 41026) ABNORMALITY; -------- SEE BELOW ------- ---- EPITHE LIAL CELL ABNORMALIT Y Atypical squamo us cells of undete rmined significance (ASC-US)------- ------- ------- ------- OTHER COMMENTS: (NOTE) Possible richelle nges of (test code = 8081) Herpes vi eddie present. Recommend PCR orculture for confirmation. P CR may be performed on this samplewithin 21 days of collection. Please contact [facility] [phone]. MARINE WELDER: Miguelina Ndiaye (test code = 8101) HAYLEI Phillips(ASC P) PATHOLOGIST Dylan Holland INTERPRETATION BY: (test code = 8122) LOCATION: (test code (NOTE) Specime ns processed at = 61408) [facility], [address] [facility], [place] [address], Phone: , CLIA: [id number] interpreted at [facility] DeptLaboratory, [address] [facility] [place] [address], , CLIA: [id number] CPT: (test code = (NOTE) 47235, 881 41 UNLESS 8140) OTHERWISE INDIC ATED, COMPUTER AIDED AND CYTOTECHNOLOGIS T SCREENING PERFO RMED. The Pap test is a screening test with an inherent, but l ow probability of error. Your patient sh ould be reminded to con sult you immediately if she experiences any suspicious sign s or symptoms, regar dless of her Pap test result. An alte rnate report format containing imag es or consolidated pr ior Pap history is avai beatriz as applicable. PAP TEST, THINPREP, [id number] 00:00:00 Test Item Value Reference Range Interpretation Comments SOURCE: (test code = 8001) Cervical/Endocervic al SLIDES: (test code = 8011) 1 LMP: (test code = 8021) 08/05/2021 SPECIMEN ADEQUACY: (test (NOTE) code = 48469) INTERPRETATION: (test code ASCUS/EPITH. = 27258) ABNORMALITY; SEE BELOW OTHER COMMENTS: (test code (NOTE) = 8081) MARINE WELDER: (test Miguelina S. code = 8101) HAYLIE Phillips(ASCP) PATHOLOGIST INTERPRETATION Dylan Holland BY: (test code = 8122) LOCATION: (test code = (NOTE) 80465) CPT: (test code = 8140) (NOTE) PAP TEST, THINPREP, [id number] 00:00:00 Test Item Value Reference Range Interpretation Comments SOURCE: (test code = 8001) Cervical/Endocervic al SLIDES: (test code = 8011) 1 LMP: (test code = 8021) 08/05/2021 SPECIMEN ADEQUACY: (test (NOTE) code = 21971) INTERPRETATION: (test code ASCUS/EPITH. = 44547) ABNORMALITY; SEE BELOW OTHER COMMENTS: (test code (NOTE) = 8081) MARINE WELDER: (test Miguelina S. code = 8101) HAYLIE Phillips(ASCP) PATHOLOGIST INTERPRETATION Dylan Holland BY: (test code = 8122) LOCATION: (test code = (NOTE) 64448) CPT: (test code = 8140) (NOTE) PAP TEST, THINPREP, [id number] 00:00:00 Test Item Value Reference Range Interpretation Comments SOURCE: (test code = 8001) Cervical/Endocervic al SLIDES: (test code = 8011) 1 LMP: (test code = 8021) 08/05/2021 SPECIMEN ADEQUACY: (test (NOTE) code = 41251) INTERPRETATION: (test code ASCUS/EPITH. = 43688) ABNORMALITY; SEE BELOW OTHER COMMENTS: (test code (NOTE) = 8081) MARINE WELDER: (test Miguelina S. code = 8101) HAYLIE Phillips(ASCP) PATHOLOGIST INTERPRETATION Dylan Holland BY: (test code = 8122) LOCATION: (test code = (NOTE) 96161) CPT: (test code = 8140) (NOTE) PAP TEST, THINPREP, [id number] 00:00:00 Test Item Value Reference Range Interpretation Comments SOURCE: (test code = 8001) Cervical/Endocervic al SLIDES: (test code = 8011) 1 LMP: (test code = 8021) 08/05/2021 SPECIMEN ADEQUACY: (test (NOTE) code = 00321) INTERPRETATION: (test code ASCUS/EPITH. = 02698) ABNORMALITY; SEE BELOW OTHER COMMENTS: (test code (NOTE) = 8081) MARINE WELDER: (test Miguelina S. code = 8101) HAYLIE Phillips(ASCP) PATHOLOGIST INTERPRETATION Dylan Holland BY: (test code = 8122) LOCATION: (test code = (NOTE) 56292) CPT: (test code = 8140) (NOTE) PAP TEST, THINPREP, [id number] 00:00:00 Test Item Value Reference Range Interpretation Comments SOURCE: (test code = 8001) Cervical/Endocervic al SLIDES: (test code = 8011) 1 LMP: (test code = 8021) 08/05/2021 SPECIMEN ADEQUACY: (test (NOTE) code = 44039) INTERPRETATION: (test code ASCUS/EPITH. = 28244) ABNORMALITY; SEE BELOW OTHER COMMENTS: (test code (NOTE) = 8081) MARINE WELDER: (test Miguelina S. code = 8101) HAYLIE Phillips(ASCP) PATHOLOGIST INTERPRETATION Dylan Holland BY: (test code = 8122) LOCATION: (test code = (NOTE) 30266) CPT: (test code = 8140) (NOTE) CT/NG, TMA, [id number] 19:19:14 Test Item Value Reference Range Interpretation Comments GONORRHEA, TMA NEGATIVE NEGATIVE Assay method ology is (test code = nucleic acid am plification 21048) by transcriptio n mediated amplification ( TMA) utilizing the A ptima Combo 2 Assay. CHLAMYDIA, TMA NEGATIVE NEGATIVE Assay method ology is (test code = nucleic acid am plification 97851) by transcriptio n mediated amplification ( TMA) utilizing the A ptima Combo 2 Assay. HPV HIGH RISK WITH GENOTYPE, [id number] 16:29:18 Test Item Value Reference Range Interpretation Comments HPV HIGH RISK INTERP POSITIVE NEGATIVE A (test code = 70950) HPV 16 (test code = NEGATIVE 88448) HPV 18 (test code = NEGATIVE 94183) HPV, HR, OTHER POSITIVE A Testing meth odology is GENOTYPES (test code real-ti me PCR utilizing = 05805) hydrolysis prob es with the [employer] 4800 system. The kezia t individually de tects genotypes 16 an d 18, as well as the oth er 12 high risk types (31,33,35,39,45 ,51,52,56 ,58,59,66,68). The expected result is negative. A neg ative result does not rule out the presence of HPV not included in the genotype set, a low leve l of infection or sp ecimen sampling error. UNLESS OTHERWISE INDIC ATED, ALL TESTING PERFORM ED ATCLINICAL PATH OLOGY LABORATORIES, [facility]. [address] [place] [id number] LABORATORY DIRE CTOR: TERRI GARDNER M.D. CLIA NUMBER [id number] [facility] ACCREDITA ON NO. VAGINAL PATHOGENS DNA [id number] 14:49:20 Test Item Value Reference Range Interpretation Comments DWIGHT SPECIES (test NEGATIVE NEGATIVE code = ) G. VAGINALIS (test POSITIVE NEGATIVE A code = ) T. VAGINALIS (test NEGATIVE NEGATIVE UNLESS O THERWISE code = ) INDICATED, ALL TESTING PERFORMED ATCLI NICAL PATHOLOGY LABOR [facility] [address], [place] [address] LABORATORY DIRE CTOR: TERRI GARDNER M.D. CLIA NUMBER [id number] CAP ACCREDITATI ON NO. HIV 1/2 4TH GEN, RFLX [id number] 05:59:23 Test Item Value Reference Range Interpretation Comments HIV 1/2 4TH GEN, RFLX CONF (test NON-REACTIVE NON-REACTIVE code = 3514) HEPATITIS PANEL, [id number] 05:59:23 Test Item Value Reference Range Interpretation Comments HEPATITIS A IgM (test NON-REACTIVE NON-REACTIVE code = 52547) HEPATITIS B CORE IgM NON-REACTIVE NON-REACTIVE (test code = 4644) HEPATITIS B SURF AG NON-REACTIVE NON-REACTIVE (test code = 2739) HEPATITIS C ANTIBODY NON-REACTIVE NON-REACTIVE (test code = 4675) INTERPRETATION (NOTE) Hepatitis A HEPATITIS A: (test code sero logy shows no = 2552) evidence of acu te hepatitis A. INTERPRETATION (NOTE) Hepatitis B HEPATITIS B: (test code sero logy shows no = 27628) evidence of acu te hepatitis B and no indication of exposure to hepatitis B vir us in the previous kiko eight months. INTERPRETATION (NOTE) Hepatitis C HEPATITIS C: (test code sero logy shows no = 80859) evidence of exposure to hepatitisC viru s at this time. I t can take up to 12 months after exposure tothe hepatitis C vir us for antibodies to become detectab le in the blood in certain patient s. [id number] 05:28:14 Test Item Value Reference Range Interpretation Comments RPR RESULT (test code = NON-REACTIVE NON-REACTIVE 3501) RPR TITER (test code = 3500) NOT INDIC. TITER NOT INDIC. GC AND CHLAMYDIA AMPLIFIED, [id number] 00:00:00 Test Item Value Reference Range Interpretation Comments GONORRHEA, TMA (test code = 66820) NEGATIVE CHLAMYDIA, TMA (test code = 76463) NEGATIVE HIV AB/AG COMBO RFLX [id number] 00:00:00 Test Item Value Reference Range Interpretation Comments HIV 1/2 4TH GEN, RFLX CONF (test NON-REACTIVE code = 3514) ACUTE HEPATITIS [id number] 00:00:00 Test Item Value Reference Range Interpretation Comments HEPATITIS A IgM (test code = NON-REACTIVE 26463) HEPATITIS B CORE IgM (test code NON-REACTIVE = 4644) HEPATITIS B SURF AG (test code = NON-REACTIVE 2739) HEPATITIS C ANTIBODY (test code NON-REACTIVE = 4675) INTERPRETATION HEPATITIS A: (NOTE) (test code = 2552) INTERPRETATION HEPATITIS B: (NOTE) (test code = 35460) INTERPRETATION HEPATITIS C: (NOTE) (test code = 23832) ACUTE HEPATITIS [id number] 00:00:00 Test Item Value Reference Range Interpretation Comments HEPATITIS A IgM (test code = NON-REACTIVE 08782) HEPATITIS B CORE IgM (test code NON-REACTIVE = 4644) HEPATITIS B SURF AG (test code = NON-REACTIVE 5939) HEPATITIS C ANTIBODY (test code NON-REACTIVE = 3292) INTERPRETATION HEPATITIS A: (NOTE) (test code = 2552) INTERPRETATION HEPATITIS B: (NOTE) (test code = 88386) INTERPRETATION HEPATITIS C: (NOTE) (test code = 03631) [id number] 00:00:00 Test Item Value Reference Range Interpretation Comments RPR RESULT (test code = NON-REACTIVE 3501) RPR TITER (test code = 3500) NOT INDIC. TITER HPV HIGH RISK WITH GENOTYPE, [id number] 00:00:00 Test Item Value Reference Range Interpretation Comments HPV HIGH RISK INTERP (test code = POSITIVE 46534) HPV 16 (test code = 43553) NEGATIVE HPV 18 (test code = 82434) NEGATIVE HPV, HR, OTHER GENOTYPES (test code POSITIVE = 93101) HPV HIGH RISK WITH GENOTYPE, [id number] 00:00:00 Test Item Value Reference Range Interpretation Comments HPV HIGH RISK INTERP (test code = POSITIVE 63783) HPV 16 (test code = 16711) NEGATIVE HPV 18 (test code = 02389) NEGATIVE HPV, HR, OTHER GENOTYPES (test code POSITIVE = 89472) [id number] 00:00:00 Test Item Value Reference Range Interpretation Comments RPR RESULT (test code = NON-REACTIVE 3501) RPR TITER (test code = 3500) NOT INDIC. TITER [id number] 00:00:00 Test Item Value Reference Range Interpretation Comments RPR RESULT (test code = NON-REACTIVE 3501) RPR TITER (test code = 3500) NOT INDIC. TITER VAGINAL PATHOGENS DNA PANEL [ADDED]2021-08-16 00:00:00 Test Item Value Reference Range Interpretation Comments DWIGHT SPECIES (test code = ) NEGATIVE G. VAGINALIS (test code = ) POSITIVE T. VAGINALIS (test code = ) NEGATIVE VAGINAL PATHOGENS DNA PANEL [ADDED]2021-08-16 00:00:00 Test Item Value Reference Range Interpretation Comments DWIGHT SPECIES (test code = ) NEGATIVE G. VAGINALIS (test code = ) POSITIVE T. VAGINALIS (test code = 14982) NEGATIVE HIV AB/AG COMBO RFLX [id number] 00:00:00 Test Item Value Reference Range Interpretation Comments HIV 1/2 4TH GEN, RFLX CONF (test NON-REACTIVE code = 3514) HIV AB/AG COMBO RFLX [id number] 00:00:00 Test Item Value Reference Range Interpretation Comments HIV 1/2 4TH GEN, RFLX CONF (test NON-REACTIVE code = 3514) GC AND CHLAMYDIA AMPLIFIED, [id number] 00:00:00 Test Item Value Reference Range Interpretation Comments GONORRHEA, TMA (test code = 87074) NEGATIVE CHLAMYDIA, TMA (test code = 16227) NEGATIVE GC AND CHLAMYDIA AMPLIFIED, [id number] 00:00:00 Test Item Value Reference Range Interpretation Comments GONORRHEA, TMA (test code = 50129) NEGATIVE CHLAMYDIA, TMA (test code = 36146) NEGATIVE ACUTE HEPATITIS [id number] 00:00:00 Test Item Value Reference Range Interpretation Comments HEPATITIS A IgM (test code = NON-REACTIVE 98692) HEPATITIS B CORE IgM (test code NON-REACTIVE = 4644) HEPATITIS B SURF AG (test code = NON-REACTIVE 2739) HEPATITIS C ANTIBODY (test code NON-REACTIVE = 4675) INTERPRETATION HEPATITIS A: (NOTE) (test code = 2552) INTERPRETATION HEPATITIS B: (NOTE) (test code = 44590) INTERPRETATION HEPATITIS C: (NOTE) (test code = 92976) ACUTE HEPATITIS [id number] 00:00:00 Test Item Value Reference Range Interpretation Comments HEPATITIS A IgM (test code = NON-REACTIVE 94927) HEPATITIS B CORE IgM (test code NON-REACTIVE = 4644) HEPATITIS B SURF AG (test code = NON-REACTIVE 2739) HEPATITIS C ANTIBODY (test code NON-REACTIVE = 4675) INTERPRETATION HEPATITIS A: (NOTE) (test code = 2552) INTERPRETATION HEPATITIS B: (NOTE) (test code = 58366) INTERPRETATION HEPATITIS C: (NOTE) (test code = 20494) [id number] 00:00:00 Test Item Value Reference Range Interpretation Comments RPR RESULT (test code = NON-REACTIVE 3501) RPR TITER (test code = 3500) NOT INDIC. TITER [id number] 00:00:00 Test Item Value Reference Range Interpretation Comments RPR RESULT (test code = NON-REACTIVE 3501) RPR TITER (test code = 3500) NOT INDIC. TITER HPV HIGH RISK WITH GENOTYPE, [id number] 00:00:00 Test Item Value Reference Range Interpretation Comments HPV HIGH RISK INTERP (test code = POSITIVE 82597) HPV 16 (test code = 22542) NEGATIVE HPV 18 (test code = 75231) NEGATIVE HPV, HR, OTHER GENOTYPES (test code POSITIVE = 39760) HPV HIGH RISK WITH GENOTYPE, [id number] 00:00:00 Test Item Value Reference Range Interpretation Comments HPV HIGH RISK INTERP (test code = POSITIVE 20982) HPV 16 (test code = 12448) NEGATIVE HPV 18 (test code = 84224) NEGATIVE HPV, HR, OTHER GENOTYPES (test code POSITIVE = 60449) [id number] 00:00:00 Test Item Value Reference Range Interpretation Comments RPR RESULT (test code = NON-REACTIVE 3501) RPR TITER (test code = 3500) NOT INDIC. TITER VAGINAL PATHOGENS DNA PANEL [ADDED]2021-08-16 00:00:00 Test Item Value Reference Range Interpretation Comments DWIGHT SPECIES (test code = ) NEGATIVE G. VAGINALIS (test code = 01839) POSITIVE T. VAGINALIS (test code = 17226) NEGATIVE VAGINAL PATHOGENS DNA PANEL [ADDED]2021-08-16 00:00:00 Test Item Value Reference Range Interpretation Comments DWIGHT SPECIES (test code = ) NEGATIVE G. VAGINALIS (test code = 48779) POSITIVE T. VAGINALIS (test code = 37740) NEGATIVE HIV AB/AG COMBO RFLX [id number] 00:00:00 Test Item Value Reference Range Interpretation Comments HIV 1/2 4TH GEN, RFLX CONF (test NON-REACTIVE code = 3514) GC AND CHLAMYDIA AMPLIFIED, [id number] 00:00:00 Test Item Value Reference Range Interpretation Comments GONORRHEA, TMA (test code = 49159) NEGATIVE CHLAMYDIA, TMA (test code = 23695) NEGATIVE ACUTE HEPATITIS [id number] 00:00:00 Test Item Value Reference Range Interpretation Comments HEPATITIS A IgM (test code = NON-REACTIVE 90084) HEPATITIS B CORE IgM (test code NON-REACTIVE = 1344) HEPATITIS B SURF AG (test code = NON-REACTIVE 4759) HEPATITIS C ANTIBODY (test code NON-REACTIVE = 4675) INTERPRETATION HEPATITIS A: (NOTE) (test code = 2552) INTERPRETATION HEPATITIS B: (NOTE) (test code = 12814) INTERPRETATION HEPATITIS C: (NOTE) (test code = 37280) HPV HIGH RISK WITH GENOTYPE, [id number] 00:00:00 Test Item Value Reference Range Interpretation Comments HPV HIGH RISK INTERP (test code = POSITIVE 55818) HPV 16 (test code = 16929) NEGATIVE HPV 18 (test code = 02264) NEGATIVE HPV, HR, OTHER GENOTYPES (test code POSITIVE = 50562) [id number] 00:00:00 Test Item Value Reference Range Interpretation Comments RPR RESULT (test code = NON-REACTIVE 3501) RPR TITER (test code = 3500) NOT INDIC. TITER [id number] 00:00:00 Test Item Value Reference Range Interpretation Comments RPR RESULT (test code = NON-REACTIVE 3501) RPR TITER (test code = 3500) NOT INDIC. TITER VAGINAL PATHOGENS DNA PANEL [ADDED]2021-08-16 00:00:00 Test Item Value Reference Range Interpretation Comments DWIGHT SPECIES (test code = 67584) NEGATIVE G. VAGINALIS (test code = ) POSITIVE T. VAGINALIS (test code = 87488) NEGATIVE HIV AB/AG COMBO RFLX [id number] 00:00:00 Test Item Value Reference Range Interpretation Comments HIV 1/2 4TH GEN, RFLX CONF (test NON-REACTIVE code = 3514) GC AND CHLAMYDIA AMPLIFIED, [id number] 00:00:00 Test Item Value Reference Range Interpretation Comments GONORRHEA, TMA (test code = 85785) NEGATIVE CHLAMYDIA, TMA (test code = 22731) NEGATIVE CBC W/AUTO DIFF WITH [id number] 12:09:41 Test Item Value Reference Range Interpretation [...] = 1036) NUCLEATED RBCS (test 0.0 /100 WBC'S See_Comment [Aut omated code = 1065) message] The sy stem which generated this [...] RBCS 0.00 K/UL 0.00-0.11 (test code = 75032) TSH, THIRD [id number] 06:48:11 Test Item Value Reference Range Interpretation Comments TSH, THIRD 1.130 UIU/ML 0.400-4.100 UNLESS OTHERWI SE GENERATION (test INDICATED, ALL TESTING code = 2821) PERFORMED [facility], [place]. [address] [place] [address] [facility] BK DIRECTOR: TERRI MCCRARY M.D. CLIA NUMBER [id number] CAP ACCREDITATION N O. [id number] LIPID [id number] 06:12:16 Test Item Value Reference Range Interpretation [...] MOREINFORMATION , SEE CLIENT ANNOUNCE MENT AT [email or web address] RISK RATIO LDL/HDL 2.13 RATIO <3.22 (test code = 2238) COMPREHENSIVE METABOLIC [id number] 06:12:16 Test Item Value Reference Range Interpretation Comments GLUCOSE (test code = 89 MG/DL 70-99 2216) BUN (test code = 12 MG/DL 6-20 2207) CREATININE (test 0.52 MG/DL 0.60-1.30 L code = 2214) eGFR (2020 CKD-EPI) 127 >60 (test code = 19065) ML/MIN/1.73 CALC BUN/CREAT (test 23 RATIO 6-28 code = 2235) SODIUM (test code = 138 MEQ/L 270-667 1667) POTASSIUM (test code 4.0 MEQ/L 3.5-5.4 = 2227) CHLORIDE (test code 103 MEQ/L 95-107 = 2214) CARBON DIOXIDE (test 22 MEQ/L 19-31 code = 2206) CALCIUM (test code = 9.6 MG/DL 8.5-10.5 2208) PROTEIN, TOTAL (test 7.0 G/DL 6.1-8.3 code = 2229) ALBUMIN (test code = 4.6 G/DL 3.5-5.2 2200) CALC GLOBULIN (test 2.4 G/DL 1.9-3.7 code = 2240) CALC A/G RATIO (test 1.9 RATIO 1.0-2.6 code = 2234) BILIRUBIN, TOTAL 0.6 MG/DL See_Comment [Automated message] (test code = 2207) [employer] which generated this result transmit damon reference range : <=1.2. The refe rence range was not u sed to interpret th is result as normal/abnormal . ALKALINE PHOSPHATASE 99 U/L 40-114 (test code = 2204) AST (test code = 17 U/L 9-40 2218) ALT (test code = 12 U/L 5-40 2219) CBC W/AUTO [id number] 00:00:00 Test Item Value Reference Range Interpretation Comments WBC (test code = 1001) 7.2 K/UL RBC (test code = 1002) 4.17 M/UL HEMOGLOBIN (test code = 1003) 13.7 G/DL HEMATOCRIT (test code = 1004) 39.4 % MCV (test code = 1005) 94.5 fL MCH (test code = 1006) 32.9 PG MCHC (test code = 1007) 34.8 G/DL RDW (test code = 1038) 11.7 % NEUTROPHILS (test code = 1008) 64.0 % LYMPHOCYTES (test code = 1010) 23.9 % MONOCYTES (test code = 1011) 8.4 % EOSINOPHILS (test code = 1012) 2.6 % BASOPHILS (test code = 1013) 0.8 % IMMATURE GRANULOCYTES (test 0.3 % code = 1036) NUCLEATED RBCS (test code = 0.0 /100WBC'S 1065) PLATELET COUNT (test code = 220 K/UL 1015) ABSOLUTE NEUTROPHILS (test code 4.62 K/UL = 1066) ABSOLUTE LYMPHOCYTES (test code 1.73 K/UL = 1067) ABSOLUTE MONOCYTES (test code = 0.61 K/UL 1068) ABSOLUTE EOSINOPHILS (test code 0.19 K/UL = 1040) ABSOLUTE BASOPHILS (test code = 0.06 K/UL 1069) ABS IMMATURE GRANULOCYTES (test 0.02 K/UL code = 1020) ABS NUCLEATED RBCS (test code = 0.00 K/UL 77360) CBC W/AUTO [id number] 00:00:00 Test Item Value Reference Range Interpretation Comments WBC (test code = 1001) 7.2 K/UL RBC (test code = 1002) 4.17 M/UL HEMOGLOBIN (test code = 1003) 13.7 G/DL HEMATOCRIT (test code = 1004) 39.4 % MCV (test code = 1005) 94.5 fL MCH (test code = 1006) 32.9 PG MCHC (test code = 1007) 34.8 G/DL RDW (test code = 1038) 11.7 % NEUTROPHILS (test code = 1008) 64.0 % LYMPHOCYTES (test code = 1010) 23.9 % MONOCYTES (test code = 1011) 8.4 % EOSINOPHILS (test code = 1012) 2.6 % BASOPHILS (test code = 1013) 0.8 % IMMATURE GRANULOCYTES (test 0.3 % code = 1036) NUCLEATED RBCS (test code = 0.0 /100WBC'S 1065) PLATELET COUNT (test code = 220 K/UL 1015) ABSOLUTE NEUTROPHILS (test code 4.62 K/UL = 1066) ABSOLUTE LYMPHOCYTES (test code 1.73 K/UL = 1067) ABSOLUTE MONOCYTES (test code = 0.61 K/UL 1068) ABSOLUTE EOSINOPHILS (test code 0.19 K/UL = 1040) ABSOLUTE BASOPHILS (test code = 0.06 K/UL 1069) ABS IMMATURE GRANULOCYTES (test 0.02 K/UL code = 1020) ABS NUCLEATED RBCS (test code = 0.00 K/UL 69429) LIPID [id number] 00:00:00 Test Item Value Reference Range Interpretation Comments CHOLESTEROL (test code = 2210) 192 MG/DL TRIGLYCERIDES (test code = 2232) 78 MG/DL HDL CHOLESTEROL (test code = 2220) 56 MG/DL CALC LDL CHOL (test code = 2237) 119 MG/DL RISK RATIO LDL/HDL (test code = 2.13 RATIO 2238) LIPID [id number] 00:00:00 Test Item Value Reference Range Interpretation Comments CHOLESTEROL (test code = 2210) 192 MG/DL TRIGLYCERIDES (test code = 2232) 78 MG/DL HDL CHOLESTEROL (test code = 2220) 56 MG/DL CALC LDL CHOL (test code = 2237) 119 MG/DL RISK RATIO LDL/HDL (test code = 2.13 RATIO 2238) COMPREHENSIVE METABOLIC [id number] 00:00:00 Test Item Value Reference Range Interpretation Comments GLUCOSE (test code = 2217) 89 MG/DL BUN (test code = 2208) 12 MG/DL CREATININE (test code = 2214) 0.52 MG/DL eGFR (2020 CKD-EPI) (test 127 ML/MIN/1.73 code = 62996) CALC BUN/CREAT (test code = 23 RATIO 2235) SODIUM (test code = 2231) 138 MEQ/L POTASSIUM (test code = 2228) 4.0 MEQ/L CHLORIDE (test code = 2215) 103 MEQ/L CARBON DIOXIDE (test code = 22 MEQ/L 2206) CALCIUM (test code = 2209) 9.6 MG/DL PROTEIN, TOTAL (test code = 7.0 G/DL 2228) ALBUMIN (test code = 2201) 4.6 G/DL CALC GLOBULIN (test code = 2.4 G/DL 2240) CALC A/G RATIO (test code = 1.9 RATIO 2234) BILIRUBIN, TOTAL (test code = 0.6 MG/DL 2206) ALKALINE PHOSPHATASE (test 99 U/L code = 2204) AST (test code = 2218) 17 U/L ALT (test code = 2219) 12 U/L COMPREHENSIVE METABOLIC [id number] 00:00:00 Test Item Value Reference Range Interpretation Comments GLUCOSE (test code = 2217) 89 MG/DL BUN (test code = 2208) 12 MG/DL CREATININE (test code = 2214) 0.52 MG/DL eGFR (2020 CKD-EPI) (test 127 ML/MIN/1.73 code = 61800) CALC BUN/CREAT (test code = 23 RATIO 2235) SODIUM (test code = 2231) 138 MEQ/L POTASSIUM (test code = 2228) 4.0 MEQ/L CHLORIDE (test code = 2215) 103 MEQ/L CARBON DIOXIDE (test code = 22 MEQ/L 2205) CALCIUM (test code = 2209) 9.6 MG/DL PROTEIN, TOTAL (test code = 7.0 G/DL 2228) ALBUMIN (test code = 2201) 4.6 G/DL CALC GLOBULIN (test code = 2.4 G/DL 2240) CALC A/G RATIO (test code = 1.9 RATIO 2234) BILIRUBIN, TOTAL (test code = 0.6 MG/DL 2206) ALKALINE PHOSPHATASE (test 99 U/L code = 2204) AST (test code = 2218) 17 U/L ALT (test code = 2219) 12 U/L [id number] 00:00:00 Test Item Value Reference Range Interpretation Comments TSH, THIRD GENERATION (test code 1.130 UIU/ML = 2821) [id number] 00:00:00 Test Item Value Reference Range Interpretation Comments TSH, THIRD GENERATION (test code 1.130 UIU/ML = 2821) [id number] 00:00:00 Test Item Value Reference Range Interpretation Comments TSH, THIRD GENERATION (test code 1.130 UIU/ML = 2821) CBC W/AUTO [id number] 00:00:00 Test Item Value Reference Range Interpretation Comments WBC (test code = 1001) 7.2 K/UL RBC (test code = 1002) 4.17 M/UL HEMOGLOBIN (test code = 1003) 13.7 G/DL HEMATOCRIT (test code = 1004) 39.4 % MCV (test code = 1005) 94.5 fL MCH (test code = 1006) 32.9 PG MCHC (test code = 1007) 34.8 G/DL RDW (test code = 1038) 11.7 % NEUTROPHILS (test code = 1008) 64.0 % LYMPHOCYTES (test code = 1010) 23.9 % MONOCYTES (test code = 1011) 8.4 % EOSINOPHILS (test code = 1012) 2.6 % BASOPHILS (test code = 1013) 0.8 % IMMATURE GRANULOCYTES (test 0.3 % code = 1036) NUCLEATED RBCS (test code = 0.0 /100WBC'S 1065) PLATELET COUNT (test code = 220 K/UL 1015) ABSOLUTE NEUTROPHILS (test code 4.62 K/UL = 1066) ABSOLUTE LYMPHOCYTES (test code 1.73 K/UL = 1067) ABSOLUTE MONOCYTES (test code = 0.61 K/UL 1068) ABSOLUTE EOSINOPHILS (test code 0.19 K/UL = 1040) ABSOLUTE BASOPHILS (test code = 0.06 K/UL 1069) ABS IMMATURE GRANULOCYTES (test 0.02 K/UL code = 1020) ABS NUCLEATED RBCS (test code = 0.00 K/UL 23279) CBC W/AUTO [id number] 00:00:00 Test Item Value Reference Range Interpretation Comments WBC (test code = 1001) 7.2 K/UL RBC (test code = 1002) 4.17 M/UL HEMOGLOBIN (test code = 1003) 13.7 G/DL HEMATOCRIT (test code = 1004) 39.4 % MCV (test code = 1005) 94.5 fL MCH (test code = 1006) 32.9 PG MCHC (test code = 1007) 34.8 G/DL RDW (test code = 1038) 11.7 % NEUTROPHILS (test code = 1008) 64.0 % LYMPHOCYTES (test code = 1010) 23.9 % MONOCYTES (test code = 1011) 8.4 % EOSINOPHILS (test code = 1012) 2.6 % BASOPHILS (test code = 1013) 0.8 % IMMATURE GRANULOCYTES (test 0.3 % code = 1036) NUCLEATED RBCS (test code = 0.0 /100WBC'S 1065) PLATELET COUNT (test code = 220 K/UL 1015) ABSOLUTE NEUTROPHILS (test code 4.62 K/UL = 1066) ABSOLUTE LYMPHOCYTES (test code 1.73 K/UL = 1067) ABSOLUTE MONOCYTES (test code = 0.61 K/UL 1068) ABSOLUTE EOSINOPHILS (test code 0.19 K/UL = 1040) ABSOLUTE BASOPHILS (test code = 0.06 K/UL 1069) ABS IMMATURE GRANULOCYTES (test 0.02 K/UL code = 1020) ABS NUCLEATED RBCS (test code = 0.00 K/UL 94280) CBC W/AUTO [id number] 00:00:00 Test Item Value Reference Range Interpretation Comments WBC (test code = 1001) 7.2 K/UL RBC (test code = 1002) 4.17 M/UL HEMOGLOBIN (test code = 1003) 13.7 G/DL HEMATOCRIT (test code = 1004) 39.4 % MCV (test code = 1005) 94.5 fL MCH (test code = 1006) 32.9 PG MCHC (test code = 1007) 34.8 G/DL RDW (test code = 1038) 11.7 % NEUTROPHILS (test code = 1008) 64.0 % LYMPHOCYTES (test code = 1010) 23.9 % MONOCYTES (test code = 1011) 8.4 % EOSINOPHILS (test code = 1012) 2.6 % BASOPHILS (test code = 1013) 0.8 % IMMATURE GRANULOCYTES (test 0.3 % code = 1036) NUCLEATED RBCS (test code = 0.0 /100WBC'S 1065) PLATELET COUNT (test code = 220 K/UL 1015) ABSOLUTE NEUTROPHILS (test code 4.62 K/UL = 1066) ABSOLUTE LYMPHOCYTES (test code 1.73 K/UL = 1067) ABSOLUTE MONOCYTES (test code = 0.61 K/UL 1068) ABSOLUTE EOSINOPHILS (test code 0.19 K/UL = 1040) ABSOLUTE BASOPHILS (test code = 0.06 K/UL 1069) ABS IMMATURE GRANULOCYTES (test 0.02 K/UL code = 1020) ABS NUCLEATED RBCS (test code = 0.00 K/UL 80017) LIPID [id number] 00:00:00 Test Item Value Reference Range Interpretation Comments CHOLESTEROL (test code = 2210) 192 MG/DL TRIGLYCERIDES (test code = 2232) 78 MG/DL HDL CHOLESTEROL (test code = 2220) 56 MG/DL CALC LDL CHOL (test code = 2237) 119 MG/DL RISK RATIO LDL/HDL (test code = 2.13 RATIO 2238) LIPID [id number] 00:00:00 Test Item Value Reference Range Interpretation Comments CHOLESTEROL (test code = 2210) 192 MG/DL TRIGLYCERIDES (test code = 2232) 78 MG/DL HDL CHOLESTEROL (test code = 2220) 56 MG/DL CALC LDL CHOL (test code = 2237) 119 MG/DL RISK RATIO LDL/HDL (test code = 2.13 RATIO 2238) COMPREHENSIVE METABOLIC [id number] 00:00:00 Test Item Value Reference Range Interpretation Comments GLUCOSE (test code = 2217) 89 MG/DL BUN (test code = 2208) 12 MG/DL CREATININE (test code = 2214) 0.52 MG/DL eGFR (2020 CKD-EPI) (test 127 ML/MIN/1.73 code = 09024) CALC BUN/CREAT (test code = 23 RATIO 2235) SODIUM (test code = 2231) 138 MEQ/L POTASSIUM (test code = 2228) 4.0 MEQ/L CHLORIDE (test code = 2215) 103 MEQ/L CARBON DIOXIDE (test code = 22 MEQ/L 2205) CALCIUM (test code = 2209) 9.6 MG/DL PROTEIN, TOTAL (test code = 7.0 G/DL 2228) ALBUMIN (test code = 2201) 4.6 G/DL CALC GLOBULIN (test code = 2.4 G/DL 2240) CALC A/G RATIO (test code = 1.9 RATIO 2234) BILIRUBIN, TOTAL (test code = 0.6 MG/DL 2206) ALKALINE PHOSPHATASE (test 99 U/L code = 2204) AST (test code = 2218) 17 U/L ALT (test code = 2219) 12 U/L COMPREHENSIVE METABOLIC [id number] 00:00:00 Test Item Value Reference Range Interpretation Comments GLUCOSE (test code = 2217) 89 MG/DL BUN (test code = 2208) 12 MG/DL CREATININE (test code = 2214) 0.52 MG/DL eGFR (2020 CKD-EPI) (test 127 ML/MIN/1.73 code = 42923) CALC BUN/CREAT (test code = 23 RATIO 2235) SODIUM (test code = 2231) 138 MEQ/L POTASSIUM (test code = 2228) 4.0 MEQ/L CHLORIDE (test code = 2215) 103 MEQ/L CARBON DIOXIDE (test code = 22 MEQ/L 2205) CALCIUM (test code = 2209) 9.6 MG/DL PROTEIN, TOTAL (test code = 7.0 G/DL 2228) ALBUMIN (test code = 2201) 4.6 G/DL CALC GLOBULIN (test code = 2.4 G/DL 2239) CALC A/G RATIO (test code = 1.9 RATIO 4) BILIRUBIN, TOTAL (test code = 0.6 MG/DL 2206) ALKALINE PHOSPHATASE (test 99 U/L code = 2204) AST (test code = 2218) 17 U/L ALT (test code = 2219) 12 U/L [id number] 00:00:00 Test Item Value Reference Range Interpretation Comments TSH, THIRD GENERATION (test code 1.130 UIU/ML = 2821) [id number] 00:00:00 Test Item Value Reference Range Interpretation Comments TSH, THIRD GENERATION (test code 1.130 UIU/ML = 2821) [id number] 00:00:00 Test Item Value Reference Range Interpretation Comments TSH, THIRD GENERATION (test code 1.130 UIU/ML = 2821) CBC W/AUTO [id number] 00:00:00 Test Item Value Reference Range Interpretation Comments WBC (test code = 1001) 7.2 K/UL RBC (test code = 1002) 4.17 M/UL HEMOGLOBIN (test code = 1003) 13.7 G/DL HEMATOCRIT (test code = 1004) 39.4 % MCV (test code = 1005) 94.5 fL MCH (test code = 1006) 32.9 PG MCHC (test code = 1007) 34.8 G/DL RDW (test code = 1038) 11.7 % NEUTROPHILS (test code = 1008) 64.0 % LYMPHOCYTES (test code = 1010) 23.9 % MONOCYTES (test code = 1011) 8.4 % EOSINOPHILS (test code = 1012) 2.6 % BASOPHILS (test code = 1013) 0.8 % IMMATURE GRANULOCYTES (test 0.3 % code = 1036) NUCLEATED RBCS (test code = 0.0 /100WBC'S 1065) PLATELET COUNT (test code = 220 K/UL 1015) ABSOLUTE NEUTROPHILS (test code 4.62 K/UL = 1066) ABSOLUTE LYMPHOCYTES (test code 1.73 K/UL = 1067) ABSOLUTE MONOCYTES (test code = 0.61 K/UL 1068) ABSOLUTE EOSINOPHILS (test code 0.19 K/UL = 1040) ABSOLUTE BASOPHILS (test code = 0.06 K/UL 1069) ABS IMMATURE GRANULOCYTES (test 0.02 K/UL code = 1020) ABS NUCLEATED RBCS (test code = 0.00 K/UL 05396) CBC W/AUTO [id number] 00:00:00 Test Item Value Reference Range Interpretation Comments WBC (test code = 1001) 7.2 K/UL RBC (test code = 1002) 4.17 M/UL HEMOGLOBIN (test code = 1003) 13.7 G/DL HEMATOCRIT (test code = 1004) 39.4 % MCV (test code = 1005) 94.5 fL MCH (test code = 1006) 32.9 PG MCHC (test code = 1007) 34.8 G/DL RDW (test code = 1038) 11.7 % NEUTROPHILS (test code = 1008) 64.0 % LYMPHOCYTES (test code = 1010) 23.9 % MONOCYTES (test code = 1011) 8.4 % EOSINOPHILS (test code = 1012) 2.6 % BASOPHILS (test code = 1013) 0.8 % IMMATURE GRANULOCYTES (test 0.3 % code = 1036) NUCLEATED RBCS (test code = 0.0 /100WBC'S 1065) PLATELET COUNT (test code = 220 K/UL 1015) ABSOLUTE NEUTROPHILS (test code 4.62 K/UL = 1066) ABSOLUTE LYMPHOCYTES (test code 1.73 K/UL = 1067) ABSOLUTE MONOCYTES (test code = 0.61 K/UL 1068) ABSOLUTE EOSINOPHILS (test code 0.19 K/UL = 1040) ABSOLUTE BASOPHILS (test code = 0.06 K/UL 1069) ABS IMMATURE GRANULOCYTES (test 0.02 K/UL code = 1020) ABS NUCLEATED RBCS (test code = 0.00 K/UL 56278) LIPID [id number] 00:00:00 Test Item Value Reference Range Interpretation Comments CHOLESTEROL (test code = 2210) 192 MG/DL TRIGLYCERIDES (test code = 2232) 78 MG/DL HDL CHOLESTEROL (test code = 2220) 56 MG/DL CALC LDL CHOL (test code = 2237) 119 MG/DL RISK RATIO LDL/HDL (test code = 2.13 RATIO 2238) COMPREHENSIVE METABOLIC [id number] 00:00:00 Test Item Value Reference Range Interpretation Comments GLUCOSE (test code = 2217) 89 MG/DL BUN (test code = 2208) 12 MG/DL CREATININE (test code = 2214) 0.52 MG/DL eGFR (2020 CKD-EPI) (test 127 ML/MIN/1.73 code = 01261) CALC BUN/CREAT (test code = 23 RATIO 2235) SODIUM (test code = 2231) 138 MEQ/L POTASSIUM (test code = 2228) 4.0 MEQ/L CHLORIDE (test code = 2215) 103 MEQ/L CARBON DIOXIDE (test code = 22 MEQ/L 220) CALCIUM (test code = 2209) 9.6 MG/DL PROTEIN, TOTAL (test code = 7.0 G/DL 2228) ALBUMIN (test code = 2201) 4.6 G/DL CALC GLOBULIN (test code = 2.4 G/DL 2240) CALC A/G RATIO (test code = 1.9 RATIO 2234) BILIRUBIN, TOTAL (test code = 0.6 MG/DL 2206) ALKALINE PHOSPHATASE (test 99 U/L code = 2204) AST (test code = 2218) 17 U/L ALT (test code = 2219) 12 U/L [id number] 00:00:00 Test Item Value Reference Range Interpretation Comments TSH, THIRD GENERATION (test code 1.130 UIU/ML = 2821) [id number] 00:00:00 Test Item Value Reference Range Interpretation Comments TSH, THIRD GENERATION (test code 1.130 UIU/ML = 2821) CBC W/AUTO [id number] 00:00:00 Test Item Value Reference Range Interpretation Comments WBC (test code = 1001) 7.2 K/UL RBC (test code = 1002) 4.17 M/UL HEMOGLOBIN (test code = 1003) 13.7 G/DL HEMATOCRIT (test code = 1004) 39.4 % MCV (test code = 1005) 94.5 fL MCH (test code = 1006) 32.9 PG MCHC (test code = 1007) 34.8 G/DL RDW (test code = 1038) 11.7 % NEUTROPHILS (test code = 1008) 64.0 % LYMPHOCYTES (test code = 1010) 23.9 % MONOCYTES (test code = 1011) 8.4 % EOSINOPHILS (test code = 1012) 2.6 % BASOPHILS (test code = 1013) 0.8 % IMMATURE GRANULOCYTES (test 0.3 % code = 1036) NUCLEATED RBCS (test code = 0.0 /100WBC'S 1065) PLATELET COUNT (test code = 220 K/UL 1015) ABSOLUTE NEUTROPHILS (test code 4.62 K/UL = 1066) ABSOLUTE LYMPHOCYTES (test code 1.73 K/UL = 1067) ABSOLUTE MONOCYTES (test code = 0.61 K/UL 1068) ABSOLUTE EOSINOPHILS (test code 0.19 K/UL = 1040) ABSOLUTE BASOPHILS (test code = 0.06 K/UL 1069) ABS IMMATURE GRANULOCYTES (test 0.02 K/UL code = 1020) ABS NUCLEATED RBCS (test code = 0.00 K/UL 28804) SARS-CoV-2 (COVID-19) by RT-PCR (HIGH RISK)2021-02-01 00:00:00 Test Item Value Reference Range Interpretation Comments SARS-CoV-2 INTERPRETATION (test NEGATIVE code = 47195) SOURCE (test code = 75176) NOT SPECIFIED SARS-CoV-2 (COVID-19) by RT-PCR (HIGH RISK)2021-02-01 00:00:00 Test Item Value Reference Range Interpretation Comments SARS-CoV-2 INTERPRETATION (test NEGATIVE code = 66013) SOURCE (test code = 17661) NOT SPECIFIED SARS-CoV-2 (COVID-19) by RT-PCR (HIGH RISK)2021-02-01 00:00:00 Test Item Value Reference Range Interpretation Comments SARS-CoV-2 INTERPRETATION (test NEGATIVE code = 08473) SOURCE (test code = 34079) NOT SPECIFIED SARS-CoV-2 (COVID-19) by RT-PCR (HIGH RISK)2021-02-01 00:00:00 Test Item Value Reference Range Interpretation Comments SARS-CoV-2 INTERPRETATION (test NEGATIVE code = 42455) SOURCE (test code = 71929) NOT SPECIFIED SARS-CoV-2 (COVID-19) by RT-PCR (HIGH RISK)2021-02-01 00:00:00 Test Item Value Reference Range Interpretation Comments SARS-CoV-2 INTERPRETATION (test NEGATIVE code = 83216) SOURCE (test code = 85664) NOT SPECIFIED CBC W/AUTO [id number] 00:00:00 Test Item Value Reference Range Interpretation Comments WBC (test code = 1001) 10.3 K/UL RBC (test code = 1002) 5.03 M/UL HEMOGLOBIN (test code = 1003) 16.3 G/DL HEMATOCRIT (test code = 1004) 47.6 % MCV (test code = 1005) 94.6 fL MCH (test code = 1006) 32.4 PG MCHC (test code = 1007) 34.2 G/DL RDW (test code = 1038) 11.7 % NEUTROPHILS (test code = 1008) 64.7 % LYMPHOCYTES (test code = 1010) 25.5 % MONOCYTES (test code = 1011) 6.2 % EOSINOPHILS (test code = 1012) 2.5 % BASOPHILS (test code = 1013) 1.1 % PLATELET COUNT (test code = 1015) 280 K/UL CBC W/AUTO [id number] 00:00:00 Test Item Value Reference Range Interpretation Comments WBC (test code = 1001) 10.3 K/UL RBC (test code = 1002) 5.03 M/UL HEMOGLOBIN (test code = 1003) 16.3 G/DL HEMATOCRIT (test code = 1004) 47.6 % MCV (test code = 1005) 94.6 fL MCH (test code = 1006) 32.4 PG MCHC (test code = 1007) 34.2 G/DL RDW (test code = 1038) 11.7 % NEUTROPHILS (test code = 1008) 64.7 % LYMPHOCYTES (test code = 1010) 25.5 % MONOCYTES (test code = 1011) 6.2 % EOSINOPHILS (test code = 1012) 2.5 % BASOPHILS (test code = 1013) 1.1 % PLATELET COUNT (test code = 1015) 280 K/UL COMPREHENSIVE METABOLIC [id number] 00:00:00 Test Item Value Reference Range Interpretation Comments GLUCOSE (test code = 2217) 112 MG/DL BUN (test code = 2208) 14 MG/DL CREATININE (test code = 2214) 0.90 MG/DL eGFR AMER. (test code 99 ML/MIN/1.73 = 11624) eGFR NON- AMER. (test 85 ML/MIN/1.73 code = 23382) CALC BUN/CREAT (test code = 16 RATIO 2235) SODIUM (test code = 2231) 142 MEQ/L POTASSIUM (test code = 2228) 4.3 MEQ/L CHLORIDE (test code = 2215) 103 MEQ/L CARBON DIOXIDE (test code = 22 MEQ/L 2206) CALCIUM (test code = 2209) 9.9 MG/DL PROTEIN, TOTAL (test code = 7.5 G/DL 2229) ALBUMIN (test code = 2201) 5.0 G/DL CALC GLOBULIN (test code = 2.5 G/DL 2240) CALC A/G RATIO (test code = 2.0 RATIO 2234) BILIRUBIN, TOTAL (test code = 0.3 MG/DL 2207) ALKALINE PHOSPHATASE (test 105 U/L code = 2204) AST (test code = 2218) 20 U/L ALT (test code = 2219) 22 U/L COMPREHENSIVE METABOLIC [id number] 00:00:00 Test Item Value Reference Range Interpretation Comments GLUCOSE (test code = 2217) 112 MG/DL BUN (test code = 2208) 14 MG/DL CREATININE (test code = 2214) 0.90 MG/DL eGFR AMER. (test code 99 ML/MIN/1.73 = 22881) eGFR NON- AMER. (test 85 ML/MIN/1.73 code = 98428) CALC BUN/CREAT (test code = 16 RATIO 2235) SODIUM (test code = 2231) 142 MEQ/L POTASSIUM (test code = 2228) 4.3 MEQ/L CHLORIDE (test code = 2215) 103 MEQ/L CARBON DIOXIDE (test code = 22 MEQ/L 2205) CALCIUM (test code = 2209) 9.9 MG/DL PROTEIN, TOTAL (test code = 7.5 G/DL 2228) ALBUMIN (test code = 2201) 5.0 G/DL CALC GLOBULIN (test code = 2.5 G/DL 2239) CALC A/G RATIO (test code = 2.0 RATIO 2233) BILIRUBIN, TOTAL (test code = 0.3 MG/DL 2206) ALKALINE PHOSPHATASE (test 105 U/L code = 220) AST (test code = 2218) 20 U/L ALT (test code = 2219) 22 U/L [id number] 00:00:00 Test Item Value Reference Range Interpretation Comments TSH, THIRD GENERATION (test code 1.640 UIU/ML = 2821) [id number] 00:00:00 Test Item Value Reference Range Interpretation Comments TSH, THIRD GENERATION (test code 1.640 UIU/ML = 2821) [id number] 00:00:00 Test Item Value Reference Range Interpretation Comments TSH, THIRD GENERATION (test code 1.640 UIU/ML = 2821) TRICHOMONAS, URINE, [id number] 00:00:00 Test Item Value Reference Range Interpretation Comments TRICHOMONAS, NAAT (test code = NEGATIVE 88389) TRICHOMONAS, URINE, [id number] 00:00:00 Test Item Value Reference Range Interpretation Comments TRICHOMONAS, NAAT (test code = NEGATIVE 30649) CBC W/AUTO [id number] 00:00:00 Test Item Value Reference Range Interpretation Comments WBC (test code = 1001) 10.3 K/UL RBC (test code = 1002) 5.03 M/UL HEMOGLOBIN (test code = 1003) 16.3 G/DL HEMATOCRIT (test code = 1004) 47.6 % MCV (test code = 1005) 94.6 fL MCH (test code = 1006) 32.4 PG MCHC (test code = 1007) 34.2 G/DL RDW (test code = 1038) 11.7 % NEUTROPHILS (test code = 1008) 64.7 % LYMPHOCYTES (test code = 1010) 25.5 % MONOCYTES (test code = 1011) 6.2 % EOSINOPHILS (test code = 1012) 2.5 % BASOPHILS (test code = 1013) 1.1 % PLATELET COUNT (test code = 1015) 280 K/UL CBC W/AUTO [id number] 00:00:00 Test Item Value Reference Range Interpretation Comments WBC (test code = 1001) 10.3 K/UL RBC (test code = 1002) 5.03 M/UL HEMOGLOBIN (test code = 1003) 16.3 G/DL HEMATOCRIT (test code = 1004) 47.6 % MCV (test code = 1005) 94.6 fL MCH (test code = 1006) 32.4 PG MCHC (test code = 1007) 34.2 G/DL RDW (test code = 1038) 11.7 % NEUTROPHILS (test code = 1008) 64.7 % LYMPHOCYTES (test code = 1010) 25.5 % MONOCYTES (test code = 1011) 6.2 % EOSINOPHILS (test code = 1012) 2.5 % BASOPHILS (test code = 1013) 1.1 % PLATELET COUNT (test code = 1015) 280 K/UL CBC W/AUTO [id number] 00:00:00 Test Item Value Reference Range Interpretation Comments WBC (test code = 1001) 10.3 K/UL RBC (test code = 1002) 5.03 M/UL HEMOGLOBIN (test code = 1003) 16.3 G/DL HEMATOCRIT (test code = 1004) 47.6 % MCV (test code = 1005) 94.6 fL MCH (test code = 1006) 32.4 PG MCHC (test code = 1007) 34.2 G/DL RDW (test code = 1038) 11.7 % NEUTROPHILS (test code = 1008) 64.7 % LYMPHOCYTES (test code = 1010) 25.5 % MONOCYTES (test code = 1011) 6.2 % EOSINOPHILS (test code = 1012) 2.5 % BASOPHILS (test code = 1013) 1.1 % PLATELET COUNT (test code = 1015) 280 K/UL COMPREHENSIVE METABOLIC [id number] 00:00:00 Test Item Value Reference Range Interpretation Comments GLUCOSE (test code = 2217) 112 MG/DL BUN (test code = 2208) 14 MG/DL CREATININE (test code = 2214) 0.90 MG/DL eGFR AMER. (test code 99 ML/MIN/1.73 = 48731) eGFR NON- AMER. (test 85 ML/MIN/1.73 code = 67921) CALC BUN/CREAT (test code = 16 RATIO 2235) SODIUM (test code = 2231) 142 MEQ/L POTASSIUM (test code = 2228) 4.3 MEQ/L CHLORIDE (test code = 2215) 103 MEQ/L CARBON DIOXIDE (test code = 22 MEQ/L 2206) CALCIUM (test code = 2209) 9.9 MG/DL PROTEIN, TOTAL (test code = 7.5 G/DL 2228) ALBUMIN (test code = 2201) 5.0 G/DL CALC GLOBULIN (test code = 2.5 G/DL 2240) CALC A/G RATIO (test code = 2.0 RATIO 2234) BILIRUBIN, TOTAL (test code = 0.3 MG/DL 2206) ALKALINE PHOSPHATASE (test 105 U/L code = 2204) AST (test code = 2218) 20 U/L ALT (test code = 2219) 22 U/L COMPREHENSIVE METABOLIC [id number] 00:00:00 Test Item Value Reference Range Interpretation Comments GLUCOSE (test code = 2217) 112 MG/DL BUN (test code = 2208) 14 MG/DL CREATININE (test code = 2214) 0.90 MG/DL eGFR AMER. (test code 99 ML/MIN/1.73 = 49400) eGFR NON- AMER. (test 85 ML/MIN/1.73 code = 29052) CALC BUN/CREAT (test code = 16 RATIO 2235) SODIUM (test code = 2231) 142 MEQ/L POTASSIUM (test code = 2228) 4.3 MEQ/L CHLORIDE (test code = 2215) 103 MEQ/L CARBON DIOXIDE (test code = 22 MEQ/L 2206) CALCIUM (test code = 2209) 9.9 MG/DL PROTEIN, TOTAL (test code = 7.5 G/DL 9) ALBUMIN (test code = 2201) 5.0 G/DL CALC GLOBULIN (test code = 2.5 G/DL 2240) CALC A/G RATIO (test code = 2.0 RATIO 2234) BILIRUBIN, TOTAL (test code = 0.3 MG/DL 2206) ALKALINE PHOSPHATASE (test 105 U/L code = 2204) AST (test code = 2218) 20 U/L ALT (test code = 2219) 22 U/L [id number] 00:00:00 Test Item Value Reference Range Interpretation Comments TSH, THIRD GENERATION (test code 1.640 UIU/ML = 2821) [id number] 00:00:00 Test Item Value Reference Range Interpretation Comments TSH, THIRD GENERATION (test code 1.640 UIU/ML = 2821) [id number] 00:00:00 Test Item Value Reference Range Interpretation Comments TSH, THIRD GENERATION (test code 1.640 UIU/ML = 2821) TRICHOMONAS, URINE, [id number] 00:00:00 Test Item Value Reference Range Interpretation Comments TRICHOMONAS, NAAT (test code = NEGATIVE 23877) TRICHOMONAS, URINE, [id number] 00:00:00 Test Item Value Reference Range Interpretation Comments TRICHOMONAS, NAAT (test code = NEGATIVE 71329) CBC W/AUTO [id number] 00:00:00 Test Item Value Reference Range Interpretation Comments WBC (test code = 1001) 10.3 K/UL RBC (test code = 1002) 5.03 M/UL HEMOGLOBIN (test code = 1003) 16.3 G/DL HEMATOCRIT (test code = 1004) 47.6 % MCV (test code = 1005) 94.6 fL MCH (test code = 1006) 32.4 PG MCHC (test code = 1007) 34.2 G/DL RDW (test code = 1038) 11.7 % NEUTROPHILS (test code = 1008) 64.7 % LYMPHOCYTES (test code = 1010) 25.5 % MONOCYTES (test code = 1011) 6.2 % EOSINOPHILS (test code = 1012) 2.5 % BASOPHILS (test code = 1013) 1.1 % PLATELET COUNT (test code = 1015) 280 K/UL CBC W/AUTO [id number] 00:00:00 Test Item Value Reference Range Interpretation Comments WBC (test code = 1001) 10.3 K/UL RBC (test code = 1002) 5.03 M/UL HEMOGLOBIN (test code = 1003) 16.3 G/DL HEMATOCRIT (test code = 1004) 47.6 % MCV (test code = 1005) 94.6 fL MCH (test code = 1006) 32.4 PG MCHC (test code = 1007) 34.2 G/DL RDW (test code = 1038) 11.7 % NEUTROPHILS (test code = 1008) 64.7 % LYMPHOCYTES (test code = 1010) 25.5 % MONOCYTES (test code = 1011) 6.2 % EOSINOPHILS (test code = 1012) 2.5 % BASOPHILS (test code = 1013) 1.1 % PLATELET COUNT (test code = 1015) 280 K/UL COMPREHENSIVE METABOLIC [id number] 00:00:00 Test Item Value Reference Range Interpretation Comments GLUCOSE (test code = 2217) 112 MG/DL BUN (test code = 2208) 14 MG/DL CREATININE (test code = 2214) 0.90 MG/DL eGFR AMER. (test code 99 ML/MIN/1.73 = 90954) eGFR NON- AMER. (test 85 ML/MIN/1.73 code = 65219) CALC BUN/CREAT (test code = 16 RATIO 2235) SODIUM (test code = 2231) 142 MEQ/L POTASSIUM (test code = 2228) 4.3 MEQ/L CHLORIDE (test code = 2215) 103 MEQ/L CARBON DIOXIDE (test code = 22 MEQ/L 2206) CALCIUM (test code = 2209) 9.9 MG/DL PROTEIN, TOTAL (test code = 7.5 G/DL 222) ALBUMIN (test code = 2201) 5.0 G/DL CALC GLOBULIN (test code = 2.5 G/DL 2240) CALC A/G RATIO (test code = 2.0 RATIO 2234) BILIRUBIN, TOTAL (test code = 0.3 MG/DL 2207) ALKALINE PHOSPHATASE (test 105 U/L code = 2204) AST (test code = 2218) 20 U/L ALT (test code = 2219) 22 U/L [id number] 00:00:00 Test Item Value Reference Range Interpretation Comments TSH, THIRD GENERATION (test code 1.640 UIU/ML = 2821) [id number] 00:00:00 Test Item Value Reference Range Interpretation Comments TSH, THIRD GENERATION (test code 1.640 UIU/ML = 2821) TRICHOMONAS, URINE, [id number] 00:00:00 Test Item Value Reference Range Interpretation Comments TRICHOMONAS, NAAT (test code = NEGATIVE 10175) CBC W/AUTO [id number] 00:00:00 Test Item Value Reference Range Interpretation Comments WBC (test code = 1001) 10.3 K/UL RBC (test code = 1002) 5.03 M/UL HEMOGLOBIN (test code = 1003) 16.3 G/DL HEMATOCRIT (test code = 1004) 47.6 % MCV (test code = 1005) 94.6 fL MCH (test code = 1006) 32.4 PG MCHC (test code = 1007) 34.2 G/DL RDW (test code = 1038) 11.7 % NEUTROPHILS (test code = 1008) 64.7 % LYMPHOCYTES (test code = 1010) 25.5 % MONOCYTES (test code = 1011) 6.2 % EOSINOPHILS (test code = 1012) 2.5 % BASOPHILS (test code = 1013) 1.1 % PLATELET COUNT (test code = 1015) 280 K/UL HCG, QUANTITATIVE [ADDED]2020-06-23 00:00:00 Test Item Value Reference Range Interpretation Comments HCG, QUANTITATIVE (test code = <5 MIU/ML 2506) HCG, QUANTITATIVE [ADDED]2020-06-23 00:00:00 Test Item Value Reference Range Interpretation Comments HCG, QUANTITATIVE (test code = <5 MIU/ML 2506) NOTE: [ADDED]2020-06-23 00:00:00 Test Item Value Reference Range Interpretation Comments NOTE: (test code = 998) (NOTE) HCG, QUANTITATIVE [ADDED]2020-06-23 00:00:00 Test Item Value Reference Range Interpretation Comments HCG, QUANTITATIVE (test code = <5 MIU/ML 2506) HCG, QUANTITATIVE [ADDED]2020-06-23 00:00:00 Test Item Value Reference Range Interpretation Comments HCG, QUANTITATIVE (test code = <5 MIU/ML 2506) HCG, QUANTITATIVE [ADDED]2020-06-23 00:00:00 Test Item Value Reference Range Interpretation Comments HCG, QUANTITATIVE (test code = <5 MIU/ML 2506) NOTE: [ADDED]2020-06-23 00:00:00 Test Item Value Reference Range Interpretation Comments NOTE: (test code = 998) (NOTE) HCG, QUANTITATIVE [ADDED]2020-06-23 00:00:00 Test Item Value Reference Range Interpretation Comments HCG, QUANTITATIVE (test code = <5 MIU/ML 2506) HCG, QUANTITATIVE [ADDED]2020-06-23 00:00:00 Test Item Value Reference Range Interpretation Comments HCG, QUANTITATIVE (test code = <5 MIU/ML 2506) NOTE: [ADDED]2020-06-23 00:00:00 Test Item Value Reference Range Interpretation Comments NOTE: (test code = 998) (NOTE) HCG, QUANTITATIVE [ADDED]2020-06-23 00:00:00 Test Item Value Reference Range Interpretation Comments HCG, QUANTITATIVE (test code = <5 MIU/ML 2506) CULTURE, [id number] 00:00:00 Test Item Value Reference Range Interpretation Comments CULTURE, URINE (test SPECIMEN NUMBER: code = 43865) [id number] CULTURE, [id number] 00:00:00 Test Item Value Reference Range Interpretation Comments CULTURE, URINE (test SPECIMEN NUMBER: code = 15506) [id number] CULTURE, [id number] 00:00:00 Test Item Value Reference Range Interpretation Comments CULTURE, URINE (test SPECIMEN NUMBER: code = 06264) [id number] CULTURE, [id number] 00:00:00 Test Item Value Reference Range Interpretation Comments CULTURE, URINE (test SPECIMEN NUMBER: code = 95216) [id number] CULTURE, [id number] 00:00:00 Test Item Value Reference Range Interpretation Comments CULTURE, URINE (test SPECIMEN NUMBER: code = 30220) [id number] GC AND CHLAMYDIA, AMPLIFIED, [id number] 00:00:00 Test Item Value Reference Range Interpretation Comments GONORRHEA, NAAT (test code = 59413) NEGATIVE CHLAMYDIA, NAAT (test code = 78840) NEGATIVE GC AND CHLAMYDIA, AMPLIFIED, [id number] 00:00:00 Test Item Value Reference Range Interpretation Comments GONORRHEA, NAAT (test code = 55461) NEGATIVE CHLAMYDIA, NAAT (test code = 16406) NEGATIVE HIV AB/AG COMBO RFLX [id number] 00:00:00 Test Item Value Reference Range Interpretation Comments HIV 1/2 4TH GEN, RFLX CONF (test NON-REACTIVE code = 3514) HIV AB/AG COMBO RFLX [id number] 00:00:00 Test Item Value Reference Range Interpretation Comments HIV 1/2 4TH GEN, RFLX CONF (test NON-REACTIVE code = 3514) RPR REFLEX TO [id number] 00:00:00 Test Item Value Reference Range Interpretation Comments RPR (test code = 18877) NON-REACTIVE RPR TITER (test code = 3500) NOT INDIC. TITER RPR REFLEX TO [id number] 00:00:00 Test Item Value Reference Range Interpretation Comments RPR (test code = 67400) NON-REACTIVE RPR TITER (test code = 3500) NOT INDIC. TITER HEPATITIS PROFILE (A,B,C)2020-06-21 00:00:00 Test Item Value Reference Range Interpretation Comments HEPATITIS A TOTAL AB (test code REACTIVE = 2725) HEPATITIS B SURF AG (test code = NON-REACTIVE 2739) HEP B CORE TOTAL AB (test code = NON-REACTIVE 2729) HEPATITIS B SURFACE AB (test REACTIVE code = 2737) HEPATITIS C ANTIBODY (test code NON-REACTIVE = 4675) INTERPRETATION HEPATITIS A: (NOTE) (test code = 2552) INTERPRETATION HEPATITIS B: (NOTE) (test code = 24329) INTERPRETATION HEPATITIS C: (NOTE) (test code = 03824) HEPATITIS PROFILE (A,B,C)2020-06-21 00:00:00 Test Item Value Reference Range Interpretation Comments HEPATITIS A TOTAL AB (test code REACTIVE = 2725) HEPATITIS B SURF AG (test code = NON-REACTIVE 2739) HEP B CORE TOTAL AB (test code = NON-REACTIVE 2729) HEPATITIS B SURFACE AB (test REACTIVE code = 2737) HEPATITIS C ANTIBODY (test code NON-REACTIVE = 4675) INTERPRETATION HEPATITIS A: (NOTE) (test code = 2552) INTERPRETATION HEPATITIS B: (NOTE) (test code = 53199) INTERPRETATION HEPATITIS C: (NOTE) (test code = 50208) HEPATITIS A IgM [REFLEX]2020-06-21 00:00:00 Test Item Value Reference Range Interpretation Comments HEPATITIS A IgM (test code = NON-REACTIVE 2728) GC AND CHLAMYDIA, AMPLIFIED, [id number] 00:00:00 Test Item Value Reference Range Interpretation Comments GONORRHEA, NAAT (test code = 20953) NEGATIVE CHLAMYDIA, NAAT (test code = 18372) NEGATIVE GC AND CHLAMYDIA, AMPLIFIED, [id number] 00:00:00 Test Item Value Reference Range Interpretation Comments GONORRHEA, NAAT (test code = 07708) NEGATIVE CHLAMYDIA, NAAT (test code = 18275) NEGATIVE HIV AB/AG COMBO RFLX [id number] 00:00:00 Test Item Value Reference Range Interpretation Comments HIV 1/2 4TH GEN, RFLX CONF (test NON-REACTIVE code = 3514) HIV AB/AG COMBO RFLX [id number] 00:00:00 Test Item Value Reference Range Interpretation Comments HIV 1/2 4TH GEN, RFLX CONF (test NON-REACTIVE code = 3514) RPR REFLEX TO [id number] 00:00:00 Test Item Value Reference Range Interpretation Comments RPR (test code = 31613) NON-REACTIVE RPR TITER (test code = 3500) NOT INDIC. TITER RPR REFLEX TO [id number] 00:00:00 Test Item Value Reference Range Interpretation Comments RPR (test code = 28673) NON-REACTIVE RPR TITER (test code = 3500) NOT INDIC. TITER HEPATITIS PROFILE (A,B,C)2020-06-21 00:00:00 Test Item Value Reference Range Interpretation Comments HEPATITIS A TOTAL AB (test code REACTIVE = 2725) HEPATITIS B SURF AG (test code = NON-REACTIVE 273) HEP B CORE TOTAL AB (test code = NON-REACTIVE 272) HEPATITIS B SURFACE AB (test REACTIVE code = 2737) HEPATITIS C ANTIBODY (test code NON-REACTIVE = 4675) INTERPRETATION HEPATITIS A: (NOTE) (test code = 2552) INTERPRETATION HEPATITIS B: (NOTE) (test code = 04857) INTERPRETATION HEPATITIS C: (NOTE) (test code = 76164) HEPATITIS PROFILE (A,B,C)2020-06-21 00:00:00 Test Item Value Reference Range Interpretation Comments HEPATITIS A TOTAL AB (test code REACTIVE = 2725) HEPATITIS B SURF AG (test code = NON-REACTIVE 2739) HEP B CORE TOTAL AB (test code = NON-REACTIVE 2729) HEPATITIS B SURFACE AB (test REACTIVE code = 2737) HEPATITIS C ANTIBODY (test code NON-REACTIVE = 4675) INTERPRETATION HEPATITIS A: (NOTE) (test code = 2552) INTERPRETATION HEPATITIS B: (NOTE) (test code = 54251) INTERPRETATION HEPATITIS C: (NOTE) (test code = 43217) HEPATITIS A IgM [REFLEX]2020-06-21 00:00:00 Test Item Value Reference Range Interpretation Comments HEPATITIS A IgM (test code = NON-REACTIVE 2728) GC AND CHLAMYDIA, AMPLIFIED, [id number] 00:00:00 Test Item Value Reference Range Interpretation Comments GONORRHEA, NAAT (test code = 29618) NEGATIVE CHLAMYDIA, NAAT (test code = 02083) NEGATIVE HIV AB/AG COMBO RFLX [id number] 00:00:00 Test Item Value Reference Range Interpretation Comments HIV 1/2 4TH GEN, RFLX CONF (test NON-REACTIVE code = 3514) RPR REFLEX TO [id number] 00:00:00 Test Item Value Reference Range Interpretation Comments RPR (test code = 37868) NON-REACTIVE RPR TITER (test code = 3500) NOT INDIC. TITER HEPATITIS PROFILE (A,B,C)2020-06-21 00:00:00 Test Item Value Reference Range Interpretation Comments HEPATITIS A TOTAL AB (test code REACTIVE = 2725) HEPATITIS B SURF AG (test code = NON-REACTIVE 2739) HEP B CORE TOTAL AB (test code = NON-REACTIVE 2729) HEPATITIS B SURFACE AB (test REACTIVE code = 2737) HEPATITIS C ANTIBODY (test code NON-REACTIVE = 4675) INTERPRETATION HEPATITIS A: (NOTE) (test code = 2552) INTERPRETATION HEPATITIS B: (NOTE) (test code = 06896) INTERPRETATION HEPATITIS C: (NOTE) (test code = 20903) HEPATITIS A IgM [REFLEX]2020-06-21 00:00:00 Test Item Value Reference Range Interpretation Comments HEPATITIS A IgM (test code = NON-REACTIVE 2728) VAGINAL PATHOGENS DNA [id number] 00:00:00 Test Item Value Reference Range Interpretation Comments DWIGHT SPECIES (test code = ) NEGATIVE G. VAGINALIS (test code = ) POSITIVE T. VAGINALIS (test code = ) NEGATIVE VAGINAL PATHOGENS DNA [id number] 00:00:00 Test Item Value Reference Range Interpretation Comments DWIGHT SPECIES (test code = ) NEGATIVE G. VAGINALIS (test code = 56038) POSITIVE T. VAGINALIS (test code = 78115) NEGATIVE HIV AB/AG COMBO RFLX [id number] 00:00:00 Test Item Value Reference Range Interpretation Comments HIV 1/2 4TH GEN, RFLX CONF (test NON-REACTIVE code = 3514) HIV AB/AG COMBO RFLX [id number] 00:00:00 Test Item Value Reference Range Interpretation Comments HIV 1/2 4TH GEN, RFLX CONF (test NON-REACTIVE code = 3514) [id number] 00:00:00 Test Item Value Reference Range Interpretation Comments RPR RESULT (test code = NON-REACTIVE 3501) RPR TITER (test code = 3500) NOT INDIC. TITER [id number] 00:00:00 Test Item Value Reference Range Interpretation Comments RPR RESULT (test code = NON-REACTIVE 3501) RPR TITER (test code = 3500) NOT INDIC. TITER [id number] 00:00:00 Test Item Value Reference Range Interpretation Comments RPR RESULT (test code = NON-REACTIVE 3501) RPR TITER (test code = 3500) NOT INDIC. TITER GC AND CHLAMYDIA, AMPLIFIED, [id number] 00:00:00 Test Item Value Reference Range Interpretation Comments GONORRHEA, NAAT (test code = 62572) NEGATIVE CHLAMYDIA, NAAT (test code = 14616) NEGATIVE GC AND CHLAMYDIA, AMPLIFIED, [id number] 00:00:00 Test Item Value Reference Range Interpretation Comments GONORRHEA, NAAT (test code = 71247) NEGATIVE CHLAMYDIA, NAAT (test code = 22285) NEGATIVE VAGINAL PATHOGENS DNA [id number] 00:00:00 Test Item Value Reference Range Interpretation Comments DWIGHT SPECIES (test code = 97249) NEGATIVE G. VAGINALIS (test code = 90681) POSITIVE T. VAGINALIS (test code = 54508) NEGATIVE VAGINAL PATHOGENS DNA [id number] 00:00:00 Test Item Value Reference Range Interpretation Comments DWIGHT SPECIES (test code = 98803) NEGATIVE G. VAGINALIS (test code = 76771) POSITIVE T. VAGINALIS (test code = 40549) NEGATIVE HIV AB/AG COMBO RFLX [id number] 00:00:00 Test Item Value Reference Range Interpretation Comments HIV 1/2 4TH GEN, RFLX CONF (test NON-REACTIVE code = 3514) HIV AB/AG COMBO RFLX [id number] 00:00:00 Test Item Value Reference Range Interpretation Comments HIV 1/2 4TH GEN, RFLX CONF (test NON-REACTIVE code = 3514) [id number] 00:00:00 Test Item Value Reference Range Interpretation Comments RPR RESULT (test code = NON-REACTIVE 3501) RPR TITER (test code = 3500) NOT INDIC. TITER [id number] 00:00:00 Test Item Value Reference Range Interpretation Comments RPR RESULT (test code = NON-REACTIVE 3501) RPR TITER (test code = 3500) NOT INDIC. TITER [id number] 00:00:00 Test Item Value Reference Range Interpretation Comments RPR RESULT (test code = NON-REACTIVE 3501) RPR TITER (test code = 3500) NOT INDIC. TITER GC AND CHLAMYDIA, AMPLIFIED, [id number] 00:00:00 Test Item Value Reference Range Interpretation Comments GONORRHEA, NAAT (test code = 40773) NEGATIVE CHLAMYDIA, NAAT (test code = 51051) NEGATIVE GC AND CHLAMYDIA, AMPLIFIED, [id number] 00:00:00 Test Item Value Reference Range Interpretation Comments GONORRHEA, NAAT (test code = 79621) NEGATIVE CHLAMYDIA, NAAT (test code = 47272) NEGATIVE VAGINAL PATHOGENS DNA [id number] 00:00:00 Test Item Value Reference Range Interpretation Comments DWIGHT SPECIES (test code = 96603) NEGATIVE G. VAGINALIS (test code = 45016) POSITIVE T. VAGINALIS (test code = 66535) NEGATIVE HIV AB/AG COMBO RFLX [id number] 00:00:00 Test Item Value Reference Range Interpretation Comments HIV 1/2 4TH GEN, RFLX CONF (test NON-REACTIVE code = 3514) [id number] 00:00:00 Test Item Value Reference Range Interpretation Comments RPR RESULT (test code = NON-REACTIVE 3501) RPR TITER (test code = 3500) NOT INDIC. TITER [id number] 00:00:00 Test Item Value Reference Range Interpretation Comments RPR RESULT (test code = NON-REACTIVE 3501) RPR TITER (test code = 3500) NOT INDIC. TITER GC AND CHLAMYDIA, AMPLIFIED, [id number] 00:00:00 Test Item Value Reference Range Interpretation Comments GONORRHEA, NAAT (test code = 69701) NEGATIVE CHLAMYDIA, NAAT (test code = 54728) NEGATIVE GC AND CHLAMYDIA, AMPLIFIED, [id number] 00:00:00 Test Item Value Reference Range Interpretation Comments GONORRHEA, TMA (test code = 75667) NEGATIVE CHLAMYDIA, TMA (test code = 75640) NEGATIVE GC AND CHLAMYDIA, AMPLIFIED, [id number] 00:00:00 Test Item Value Reference Range Interpretation Comments GONORRHEA, TMA (test code = 08817) NEGATIVE CHLAMYDIA, TMA (test code = 59924) NEGATIVE GC AND CHLAMYDIA, AMPLIFIED, [id number] 00:00:00 Test Item Value Reference Range Interpretation Comments GONORRHEA, TMA (test code = 37949) NEGATIVE CHLAMYDIA, TMA (test code = 66945) NEGATIVE GC AND CHLAMYDIA, AMPLIFIED, [id number] 00:00:00 Test Item Value Reference Range Interpretation Comments GONORRHEA, TMA (test code = 97671) NEGATIVE CHLAMYDIA, TMA (test code = 93284) NEGATIVE GC AND CHLAMYDIA, AMPLIFIED, [id number] 00:00:00 Test Item Value Reference Range Interpretation Comments GONORRHEA, TMA (test code = 53551) NEGATIVE CHLAMYDIA, TMA (test code = 22964) NEGATIVE GC AND CHLAMYDIA AMPLIFIED, [id number] 00:00:00 Test Item Value Reference Range Interpretation Comments GONORRHEA, TMA (test code TEST NOT PERFORMED = 57964) CHLAMYDIA, TMA (test code TEST NOT PERFORMED = 77710) GC AND CHLAMYDIA AMPLIFIED, [id number] 00:00:00 Test Item Value Reference Range Interpretation Comments GONORRHEA, TMA (test code TEST NOT PERFORMED = 44936) CHLAMYDIA, TMA (test code TEST NOT PERFORMED = 86993) PAP TEST, THINPREP, [id number] 00:00:00 Test Item Value Reference Range Interpretation Comments SOURCE: (test code = Cervical/Endocervical 8001) SLIDES: (test code = 1 8011) LMP: (test code = 8021) 08/19/2018 SPECIMEN ADEQUACY: (test (NOTE) code = 04018) INTERPRETATION: (test NILM/NO EPITH. code = 85477) ABNORMALITY;SEE BELOW MARINE WELDER: (test RUSSELL code = 8101) HAYLIE MASON(ASCP)IAC LOCATION: (test code = (NOTE) 01735) CPT: (test code = 8140) (NOTE) GC AND CHLAMYDIA AMPLIFIED, [id number] 00:00:00 Test Item Value Reference Range Interpretation Comments GONORRHEA, TMA (test code TEST NOT PERFORMED = 30233) CHLAMYDIA, TMA (test code TEST NOT PERFORMED = 68405) PAP TEST, THINPREP, [id number] 00:00:00 Test Item Value Reference Range Interpretation Comments SOURCE: (test code = Cervical/Endocervical 8001) SLIDES: (test code = 1 8011) LMP: (test code = 8021) 08/19/2018 SPECIMEN ADEQUACY: (test (NOTE) code = 25978) INTERPRETATION: (test NILM/NO EPITH. code = 03892) ABNORMALITY;SEE BELOW MARINE WELDER: (test RUSSELL code = 8101) HAYLIE MASON(ASCP)IAC LOCATION: (test code = (NOTE) 60435) CPT: (test code = 8140) (NOTE) PAP TEST, THINPREP, [id number] 00:00:00 Test Item Value Reference Range Interpretation Comments SOURCE: (test code = Cervical/Endocervical 8001) SLIDES: (test code = 1 8011) LMP: (test code = 8021) 08/19/2018 SPECIMEN ADEQUACY: (test (NOTE) code = 80283) INTERPRETATION: (test NILM/NO EPITH. code = 38652) ABNORMALITY;SEE BELOW MARINE WELDER: (test RUSSELL code = 8101) HAYLIE MASON(ASCP)IAC LOCATION: (test code = (NOTE) 58829) CPT: (test code = 8140) (NOTE) GC AND CHLAMYDIA AMPLIFIED, [id number] 00:00:00 Test Item Value Reference Range Interpretation Comments GONORRHEA, TMA (test code TEST NOT PERFORMED = 42878) CHLAMYDIA, TMA (test code TEST NOT PERFORMED = 29844) GC AND CHLAMYDIA AMPLIFIED, [id number] 00:00:00 Test Item Value Reference Range Interpretation Comments GONORRHEA, TMA (test code TEST NOT PERFORMED = 30544) CHLAMYDIA, TMA (test code TEST NOT PERFORMED = 09523) PAP TEST, THINPREP, [id number] 00:00:00 Test Item Value Reference Range Interpretation Comments SOURCE: (test code = Cervical/Endocervical 8001) SLIDES: (test code = 1 8011) LMP: (test code = 8021) 08/19/2018 SPECIMEN ADEQUACY: (test (NOTE) code = 33386) INTERPRETATION: (test NILM/NO EPITH. code = 18026) ABNORMALITY;SEE BELOW MARINE WELDER: (test RUSSELL code = 8101) PARCHER,CT(ASCP)IAC LOCATION: (test code = (NOTE) 58615) CPT: (test code = 8140) (NOTE) PAP TEST, THINPREP, [id number] 00:00:00 Test Item Value Reference Range Interpretation Comments SOURCE: (test code = Cervical/Endocervical 8001) SLIDES: (test code = 1 8011) LMP: (test code = 8021) 08/19/2018 SPECIMEN ADEQUACY: (test (NOTE) code = 72793) INTERPRETATION: (test NILM/NO EPITH. code = 79273) ABNORMALITY;SEE BELOW MARINE WELDER: (test RUSSELL code = 8101) PARISABELCT(ASCP)IAC LOCATION: (test code = (NOTE) 86090) CPT: (test code = 8140) (NOTE) [id number] 00:00:00 Test Item Value Reference Range Interpretation Comments RPR RESULT (test code = NON-REACTIVE 3501) RPR TITER (test code = 3500) NOT INDIC. TITER [id number] 00:00:00 Test Item Value Reference Range Interpretation Comments RPR RESULT (test code = NON-REACTIVE 3501) RPR TITER (test code = 3500) NOT INDIC. TITER HIV AB/AG COMBO RFLX [id number] 00:00:00 Test Item Value Reference Range Interpretation Comments HIV 1/2 4TH GEN, RFLX CONF (test NON-REACTIVE code = 3514) HIV AB/AG COMBO RFLX [id number] 00:00:00 Test Item Value Reference Range Interpretation Comments HIV 1/2 4TH GEN, RFLX CONF (test NON-REACTIVE code = 3514) HPV HIGH RISK WITH GENOTYPE, [id number] 00:00:00 Test Item Value Reference Range Interpretation Comments HPV HIGH RISK INTERP (test code = NEGATIVE 76498) HPV 16 (test code = 76870) NEGATIVE HPV 18 (test code = 55082) NEGATIVE HPV, HR, OTHER GENOTYPES (test code NEGATIVE = 75176) HPV HIGH RISK WITH GENOTYPE, [id number] 00:00:00 Test Item Value Reference Range Interpretation Comments HPV HIGH RISK INTERP (test code = NEGATIVE 33863) HPV 16 (test code = 75286) NEGATIVE HPV 18 (test code = 43071) NEGATIVE HPV, HR, OTHER GENOTYPES (test code NEGATIVE = 82156) ACUTE HEPATITIS [id number] 00:00:00 Test Item Value Reference Range Interpretation Comments HEPATITIS A IgM (test code = NON-REACTIVE 81629) HEPATITIS B CORE IgM (test code NON-REACTIVE = 4644) HEPATITIS B SURF AG (test code = NON-REACTIVE 2739) HEPATITIS C ANTIBODY (test code NON-REACTIVE = 4675) HCV INDEX (test code = 73726) 0.11 INTERPRETATION HEPATITIS A: (NOTE) (test code = 2552) INTERPRETATION HEPATITIS B: (NOTE) (test code = 69445) INTERPRETATION HEPATITIS C: (NOTE) (test code = 24031) ACUTE HEPATITIS [id number] 00:00:00 Test Item Value Reference Range Interpretation Comments HEPATITIS A IgM (test code = NON-REACTIVE 14377) HEPATITIS B CORE IgM (test code NON-REACTIVE = 4644) HEPATITIS B SURF AG (test code = NON-REACTIVE 2739) HEPATITIS C ANTIBODY (test code NON-REACTIVE = 4675) HCV INDEX (test code = 37853) 0.11 INTERPRETATION HEPATITIS A: (NOTE) (test code = 2552) INTERPRETATION HEPATITIS B: (NOTE) (test code = 20338) INTERPRETATION HEPATITIS C: (NOTE) (test code = 13713) [id number] 00:00:00 Test Item Value Reference Range Interpretation Comments RPR RESULT (test code = NON-REACTIVE 3501) RPR TITER (test code = 3500) NOT INDIC. TITER [id number] 00:00:00 Test Item Value Reference Range Interpretation Comments RPR RESULT (test code = NON-REACTIVE 3501) RPR TITER (test code = 3500) NOT INDIC. TITER [id number] 00:00:00 Test Item Value Reference Range Interpretation Comments RPR RESULT (test code = NON-REACTIVE 3501) RPR TITER (test code = 3500) NOT INDIC. TITER HPV HIGH RISK WITH GENOTYPE, [id number] 00:00:00 Test Item Value Reference Range Interpretation Comments HPV HIGH RISK INTERP (test code = NEGATIVE 07259) HPV 16 (test code = 52263) NEGATIVE HPV 18 (test code = 31042) NEGATIVE HPV, HR, OTHER GENOTYPES (test code NEGATIVE = 66407) HPV HIGH RISK WITH GENOTYPE, [id number] 00:00:00 Test Item Value Reference Range Interpretation Comments HPV HIGH RISK INTERP (test code = NEGATIVE 54202) HPV 16 (test code = 21260) NEGATIVE HPV 18 (test code = 52590) NEGATIVE HPV, HR, OTHER GENOTYPES (test code NEGATIVE = 14923) HIV AB/AG COMBO RFLX [id number] 00:00:00 Test Item Value Reference Range Interpretation Comments HIV 1/2 4TH GEN, RFLX CONF (test NON-REACTIVE code = 3514) HIV AB/AG COMBO RFLX [id number] 00:00:00 Test Item Value Reference Range Interpretation Comments HIV 1/2 4TH GEN, RFLX CONF (test NON-REACTIVE code = 3514) ACUTE HEPATITIS [id number] 00:00:00 Test Item Value Reference Range Interpretation Comments HEPATITIS A IgM (test code = NON-REACTIVE 36555) HEPATITIS B CORE IgM (test code NON-REACTIVE = 4644) HEPATITIS B SURF AG (test code = NON-REACTIVE 2739) HEPATITIS C ANTIBODY (test code NON-REACTIVE = 4675) HCV INDEX (test code = 45664) 0.11 INTERPRETATION HEPATITIS A: (NOTE) (test code = 2552) INTERPRETATION HEPATITIS B: (NOTE) (test code = 57112) INTERPRETATION HEPATITIS C: (NOTE) (test code = 49655) ACUTE HEPATITIS [id number] 00:00:00 Test Item Value Reference Range Interpretation Comments HEPATITIS A IgM (test code = NON-REACTIVE 04776) HEPATITIS B CORE IgM (test code NON-REACTIVE = 4644) HEPATITIS B SURF AG (test code = NON-REACTIVE 2739) HEPATITIS C ANTIBODY (test code NON-REACTIVE = 4675) HCV INDEX (test code = 80698) 0.11 INTERPRETATION HEPATITIS A: (NOTE) (test code = 2552) INTERPRETATION HEPATITIS B: (NOTE) (test code = 75389) INTERPRETATION HEPATITIS C: (NOTE) (test code = 69602) [id number] 00:00:00 Test Item Value Reference Range Interpretation Comments RPR RESULT (test code = NON-REACTIVE 3501) RPR TITER (test code = 3500) NOT INDIC. TITER [id number] 00:00:00 Test Item Value Reference Range Interpretation Comments RPR RESULT (test code = NON-REACTIVE 3501) RPR TITER (test code = 3500) NOT INDIC. TITER HIV AB/AG COMBO RFLX [id number] 00:00:00 Test Item Value Reference Range Interpretation Comments HIV 1/2 4TH GEN, RFLX CONF (test NON-REACTIVE code = 3514) HPV HIGH RISK WITH GENOTYPE, [id number] 00:00:00 Test Item Value Reference Range Interpretation Comments HPV HIGH RISK INTERP (test code = NEGATIVE 78648) HPV 16 (test code = 41159) NEGATIVE HPV 18 (test code = 73940) NEGATIVE HPV, HR, OTHER GENOTYPES (test code NEGATIVE = 23294) ACUTE HEPATITIS [id number] 00:00:00 Test Item Value Reference Range Interpretation Comments HEPATITIS A IgM (test code = NON-REACTIVE 74729) HEPATITIS B CORE IgM (test code NON-REACTIVE = 4644) HEPATITIS B SURF AG (test code = NON-REACTIVE 2739) HEPATITIS C ANTIBODY (test code NON-REACTIVE = 4675) HCV INDEX (test code = 05745) 0.11 INTERPRETATION HEPATITIS A: (NOTE) (test code = 2552) INTERPRETATION HEPATITIS B: (NOTE) (test code = 92395) INTERPRETATION HEPATITIS C: (NOTE) (test code = 39807) [id number] 00:00:00 Test Item Value Reference Range Interpretation Comments RPR RESULT (test code = NON-REACTIVE 3501) RPR TITER (test code = 3500) NOT INDIC. TITER"
[2022-12-01] MEDS ORDERED: NA CHLORIDE 0.9% 1,000 ML ONE (00:06)
[2022-12-01] MEDS ORDERED: ACETAMINOPHEN 500 MG TAB ONE (00:09)
[2022-12-01 00:12] LABS: Absolute Lymphocytes (CBC) 2.4 K/uL (0.7-4.9); Hematocrit 44.6 % (36.0-45.0); Lymphocytes % 18.4 % (15.3-44.8); MCV 95.8 fL (80-100); MPV 8.7 fL (7.6-11.3); RBC Red Blood Cell Count 4.66 M/uL (3.86-4.86)
[2022-12-01] MEDS ORDERED: ONDANSETRON 4 MG/2 ML VIAL ONE (00:18)
[2022-12-01 00:32] LABS: ALT/SGPT 26 U/L (13-56); AST/SGOT 16 U/L (15-37); Albumin 4.4 g/dL (3.4-5.0); Alkaline Phosphatase 121 U/L (45-117); BUN Blood Urea Nitrogen 18 mg/dL (7-18); Bicarbonate 26 mEq/L (21-32); Bilirubin Direct 0.1 mg/dL (0-0.2); Bilirubin Indirect, Calculated 0.3 mg/dL (0.2-0.8); Bilirubin Total 0.4 mg/dL (0.2-1.0); Glomerular Filtration Rate 83 ml/min (=/>90); Glucose Level 119 mg/dL (74-106); Magnesium 2.2 mg/dL (1.6-2.4); Potassium 3.4 mEq/L (3.5-5.1); Protein, Total 8.2 g/dL (6.4-8.2); Sodium Level 139 mEq/L (136-145)
[2022-12-01 00:33] LABS: Troponin High Sensitivity < 3.0 pg/mL (<58.9)
[2022-12-01 02:43] LABS: Specific Gravity 1.037 (1.005-1.030)
[2022-12-01 02:44] LABS: Specific Gravity > 1.030 (1.005-1.030); Urine Bacteria None Seen /HPF (<20); Urine Bilirubin NEGATIVE (Negative); Urine Blood 2+ (Negative); Urine Clarity Clear (Clear); Urine Color Yellow (Yellow); Urine Crystals Unidentified Few /HPF (None Seen); Urine Glucose NEGATIVE (Negative); Urine Mucus 1+ /HPF (None Seen); Urine Protein 1+ (Negative); Urine RBC <5 /HPF (None Seen); Urine Urobilinogen 1+ (Normal)
--- NOTE | 2022-12-01 04:34 | ER ---
Nurse's Notes [facility] Name: Gwen Cheema Age: 32 yrs Sex: Female : 1990 Arrival Date: 11/30/2022 Time: 23:13 Bed 12 Private MD: Diagnosis: Dehydration;Irritability and anger;Impulse disorder, unspecified Presentation: 11/30 23:25 Chief complaint: Patient states: dehydration with headache pain of 9, nausea, vomiting pf1 and diarrhea, onset 1 days. Patient stated she feels so dehydrated that she thinks she is going to have a seizure. Patient stated was diagnosed with Covid-19 2 weeks ago. Patient stated was released from drug and alcohol rehab yesterday and feels like they overdosed her on Seroquel. Coronavirus screen: Vaccine status: Patient reports being unvaccinated. Client denies travel out of the [place] in the last 14 days. Client presents with at least one sign or symptom that may indicate coronavirus-19. Ebola Screen: Patient negative for fever greater than or equal to 101.5 degrees Fahrenheit, and additional compatible Ebola Virus Disease symptoms. Initial Sepsis Screen: Does the patient meet any 2 criteria? No. Patient's initial sepsis screen is negative. Does the patient have a suspected source of infection? No. Patient's initial sepsis screen is negative. Risk Assessment: Do you want to hurt yourself or someone else? Patient reports no desire to harm self or others. 23:25 Method Of Arrival: Ambulatory pf1 23:25 Acuity: MIS 3 pf1 23:40 Chief complaint:. pf1 Historical: - Allergies: 23:33 Geodon; pf1 23:33 Zoloft; pf1 23:33 RISPERIDONE; pf1 23:33 Zyprexa; pf1 - PMHx: 23:33 Anxiety; Bipolar disorder; Depression; PTSD; Seizures; pf1 - PSHx: 23:33 ruptured ovarian cyst; pf1 - Immunization history:: Adult Immunizations up to date, Client reports having NOT received the Covid vaccine. Last tetanus immunization: > 10 years ago Flu vaccine is not up to date. - Social history:: Smoking status: Patient reports the use of cigarette tobacco products, smokes one-half pack cigarettes per day, Patient uses alcohol, street drugs. Screenin:45 [facility] ED Fall Risk Assessment (Adult) History of falling in the last 3 months, pf1 including since admission No falls in past 3 months (0 pts) Confusion or Disorientation No (0 pts) Intoxicated or Sedated No (0 pts) Impaired Gait No (0 pts) Mobility Assist Device Used No (0 pt) Altered Elimination No (0 pt) Score/Fall Risk Level 0 - 2 = Low Risk Oriented to surroundings, Maintained a safe environment, Educated pt \T\ family on fall prevention, incl call for assistance when getting out of bed, Assessed \T\ reinforced patient's understanding of fall precautions, Provided non-skid footwear, Hourly rounding (assess needs \T\ fall precautionary measures) done, Used ambulatory aids as needed (educated on \T\ assisted with), Used gait belt as appropriate. 23:45 Abuse screen: Denies threats or abuse. Nutritional screening: No deficits noted. pf1 Tuberculosis screening: No symptoms or risk factors identified. Assessment: 23:45 General: Appears in no apparent distress. uncomfortable, well developed, Behavior is pf1 cooperative, appropriate for age, anxious. 23:45 Pain: Complains of pain in head Pain currently is 9 out of 10 on a pain scale. pf1 23:45 Neuro: No deficits noted. Level of Consciousness is awake, alert, obeys commands, pf1 Oriented to person, place, time, situation. Cardiovascular: No deficits noted. Capillary refill < 3 seconds Patient's skin is warm and dry. Respiratory: No deficits noted. Airway is patent Respiratory effort is even, unlabored, Respiratory pattern is regular, symmetrical, Breath sounds are clear bilaterally. GI: Abdomen is flat, non-distended, Reports diarrhea, nausea, vomiting. : No deficits noted. No signs and/or symptoms were reported regarding the genitourinary system. EENT: No deficits noted. No signs and/or symptoms were reported regarding the EENT system. Derm: No deficits noted. No signs and/or symptoms reported regarding the dermatologic system. 12/01 01:00 Reassessment: Patient appears in no apparent distress at this time. Patient and/or pf1 family updated on plan of care and expected duration. Pain level reassessed. Patient is alert, oriented x 3, equal unlabored respirations, skin warm/dry/pink. Patient states feeling better. Patient states symptoms have improved. 02:00 Reassessment: Patient appears in no apparent distress at this time. Patient and/or pf1 family updated on plan of care and expected duration. Pain level reassessed. Patient is alert, oriented x 3, equal unlabored respirations, skin warm/dry/pink. Patient states feeling better. Patient states symptoms have improved. 03:00 Reassessment: Patient appears in no apparent distress at this time. Patient and/or pf1 family updated on plan of care and expected duration. Pain level reassessed. Patient is alert, oriented x 3, equal unlabored respirations, skin warm/dry/pink. Patient states feeling better. Patient states symptoms have improved. 04:00 Reassessment: Patient appears in no apparent distress at this time. Patient and/or pf1 family updated on plan of care and expected duration. Pain level reassessed. Patient is alert, oriented x 3, equal unlabored respirations, skin warm/dry/pink. Patient states feeling better. Patient states symptoms have improved. Vital Signs: 11/30 23:25 BP 139 / 83; Pulse 74; Resp 18; Temp 98; Pulse Ox 98% on R/A; Weight 45.81 kg; Height 5 pf1 ft. 5 in. ; Pain 10/10; 12/01 01:00 BP 111 / 87; Pulse 87; Resp 16; Pulse Ox 99% ; pf1 02:00 BP 121 / 74; Pulse 85; Resp 16; Pulse Ox 100% ; pf1 03:00 BP 112 / 89; Pulse 83; Resp 16; Pulse Ox 100% ; pf1 04:00 BP 110 / 74; Pulse 86; Resp 16; Pulse Ox 100% on R/A; Pain 0/10; pf1 11/30 23:25 Body Mass Index 16.81 (45.81 kg, 165.1 cm) pf1 11/30 23:25 Pain Scale: Adult pf1 04:00 Pain Scale: Adult pf1 ED Course: 11/30 23:14 Patient arrived in ED. am2 23:33 Triage completed. pf1 23:34 Alysa Valerio PA-C is PHCP. sb4 23:34 Jonn Carl MD is Attending Physician. sb4 23:45 Arm band placed on right wrist. pf1 23:45 Patient has correct armband on for positive identification. Bed in low position. Call pf1 light in reach. Side rails up X2. 12/01 00:05 Basic Metabolic Panel Sent. pf1 00:05 CBC with Diff Sent. pf1 00:05 D-Dimer Sent. pf1 00:05 LFT's Sent. pf1 00:05 Magnesium Sent. pf1 00:05 Troponin HS Sent. pf1 00:05 No provider procedures requiring assistance completed. Inserted saline lock: 22 gauge pf1 in right antecubital area, using aseptic technique. Blood collected. 00:22 XRAY Chest (1 view) In Process Unspecified. EDMS 00:27 Radiology exam delayed due to test not completed at this time. eh4 03:12 Chest For PE Angio CT In Process Unspecified. EDMS 04:40 IV discontinued, intact, bleeding controlled, No redness/swelling at site. Pressure pf1 dressing applied. 04:40 Provided Education on: follow up education and medication administration. pf1 Administered Medications: 00:05 Drug: NS 0.9% IV 1000 ml Route: IV; Rate: 1 bolus; Site: right antecubital; pf1 05:10 Follow up: Response: No adverse reaction; Marked relief of symptoms; IV Status: pf1 Completed infusion; IV Intake: 1000ml 00:10 Drug: Ondansetron IVP 4 mg Route: IVP; Site: right antecubital; pf1 01:00 Follow up: Response: No adverse reaction; Marked relief of symptoms; Nausea is decreasedpf1 00:30 Drug: Acetaminophen PO 1000 mg Route: PO; pf1 01:30 Follow up: Response: No adverse reaction; Marked relief of symptoms; Pain is decreased pf1 Medication: 11/30 04:40 VIS not applicable for this client. pf1 Intake: 12/01 05:10 IV: 1000ml; Total: 1000ml. pf1 Outcome: 04:34 Discharge ordered by . sp4 04:40 Discharged to home ambulatory, with family. pf1 04:40 Condition: improved pf1 04:40 Discharge instructions given to patient, Instructed on discharge instructions, follow up and referral plans. Demonstrated understanding of instructions, follow-up care. 04:40 Patient left the ED. pf1 Signatures: Dispatcher [employer] [place] am2 Sima Shaikh eh4 Alysa Valerio PA-C PATommyC sb4 Elena Curran RN RN pf1 Jonn Carl MD MD sp4 Corrections: (The following items were deleted from the chart) 11/30 23:39 23:25 Chief complaint: Patient states: dehydration with headache pain of 9, nausea, pf1 vomiting and diarrhea, onset 1 days. Patient stated was diagnosed with Covid-19 2 weeks ago. Patient stated was released from drug and alcohol rehab yesterday. pf1 12/01 00:05 11/30 23:25 Chief complaint: Patient states: dehydration with headache pain of 9, pf1 nausea, vomiting and diarrhea, onset 1 days. Patient stated she feels so dehydrated that she thinks she is going to have a seizure. Patient stated was diagnosed with Covid-19 2 weeks ago. Patient stated was released from drug and alcohol rehab yesterday. pf1 12/01 05:12 05:11 Patient left the ED. pf1 pf1
--- NOTE | 2022-12-01 04:34 | EDPHYS ---
Physician Documentation [facility] Name: Gwen Cheema Age: 32 yrs Sex: Female : 1990 Arrival Date: 11/30/2022 Time: 23:13 Bed 12 Private MD: ED Physician Jonn Carl HPI: 12/01 00:49 This 32 yrs old Female presents to ER via Ambulatory with complaints of covid symptoms. sb4 00:49 Patient comes in with several complaints including shortness of breath, weakness, chest sb4 pain, feeling generally unwell. Patient states that she tested positive for COVID 2 weeks ago and she has also been in drug and alcohol rehab for the past 2 weeks where she states that they have been overmedicating her with psychiatric medications. She states she feels so dehydrated and like she is going to have a seizure. Historical: - Allergies: 11/30 23:33 Geodon; pf1 23:33 Zoloft; pf1 23:33 RISPERIDONE; pf1 23:33 Zyprexa; pf1 - PMHx: 23:33 Anxiety; Bipolar disorder; Depression; PTSD; Seizures; pf1 - PSHx: 23:33 ruptured ovarian cyst; pf1 - Immunization history:: Adult Immunizations up to date, Client reports having NOT received the Covid vaccine. Last tetanus immunization: > 10 years ago Flu vaccine is not up to date. - Social history:: Smoking status: Patient reports the use of cigarette tobacco products, smokes one-half pack cigarettes per day, Patient uses alcohol, street drugs. ROS: 12/01 00:49 Constitutional: Negative for fever, chills, and weight loss, Eyes: Negative for injury, sb4 pain, redness, and discharge, ENT: Negative for injury, pain, and discharge. 00:50 Cardiovascular: Positive for chest pain. sb4 00:50 Respiratory: Positive for dyspnea on exertion. 00:50 Abdomen/GI: Positive for abdominal pain, nausea, vomiting, and diarrhea. 00:50 Neuro: Positive for dizziness, headache. 00:50 All other systems are negative. Exam: 00:50 Head/Face: Normocephalic, atraumatic. Eyes: Extra-ocular motions intact. Periorbital sb4 areas with no swelling, redness, or edema. Cardiovascular: Regular rate and rhythm with a normal S1 and S2. Respiratory: Lungs have equal breath sounds bilaterally, clear to auscultation and percussion. No rales, rhonchi or wheezes noted. No increased work of breathing, no retractions or nasal flaring. Abdomen/GI: Soft, non-tender, no distension. MS/ Extremity: Pulses equal, no cyanosis. Neurovascular intact. Full, normal range of motion. Neuro: Awake and alert, GCS 15, oriented to person, place, time, and situation. Cranial nerves II-XII grossly intact. Motor strength 5/5 in all extremities. Sensory grossly intact. Cerebellar exam normal. Normal gait. 00:50 Constitutional: The patient appears alert, awake, uncomfortable. Vital Signs: 11/30 23:25 BP 139 / 83; Pulse 74; Resp 18; Temp 98; Pulse Ox 98% on R/A; Weight 45.81 kg; Height 5 pf1 ft. 5 in. ; Pain 10/10; 12/01 01:00 BP 111 / 87; Pulse 87; Resp 16; Pulse Ox 99% ; pf1 02:00 BP 121 / 74; Pulse 85; Resp 16; Pulse Ox 100% ; pf1 03:00 BP 112 / 89; Pulse 83; Resp 16; Pulse Ox 100% ; pf1 04:00 BP 110 / 74; Pulse 86; Resp 16; Pulse Ox 100% on R/A; Pain 0/10; pf1 11/30 23:25 Body Mass Index 16.81 (45.81 kg, 165.1 cm) pf1 11/30 23:25 Pain Scale: Adult pf1 04:00 Pain Scale: Adult pf1 MDM: 11/30 23:34 Patient medically screened. sb4 12/01 02:42 Differential diagnosis: viral Infection, bacterial infection, URI, bronchitis, sb4 pneumonia UTI, gastroenteritis, drug withdrawal, covid, dehydration. Data reviewed: vital signs, nurses notes, lab test result(s), EKG, radiologic studies, and as a result, I will discharge patient. Care significantly affected by the following chronic conditions: Anxiety, depression, bipolar. Counseling: I had a detailed discussion with the patient and/or guardian regarding: the historical points, exam findings, and any diagnostic results supporting the discharge/admit diagnosis, lab results, radiology results, to return to the emergency department if symptoms worsen or persist or if there are any questions or concerns that arise at home. 04:24 Differential Diagnosis altered mental status, sepsis, flu, Undifferentiated viral sp4 illness. Consideration of Admission/Observation Patient was admitted/placed on observation. Escalation of care including admission/observation considered. ED course: COMPARISON: No relevant prior studies available. FINDINGS: PULMONARYARTERIES: Unremarkable. No pulmonary embolism or aortic aneurysm. No pulmonary artery ectasia. AORTA: No acute findings. No thoracic aortic aneurysm. LUNGS: Trace biapical scarring. Bilateral upper lobe predominant areas of subtle lucency, suspicious for atypical pulmonary cysts versus early centrilobular and paraseptal emphysematous changes. No mass. PLEURAL SPACE: Unremarkable. No focal consolidation. No pleural effusion or pneumothorax. HEART: Unremarkable. No cardiomegaly. No significant pericardial effusion. No evidence of RV dysfunction. BONES/JOINTS: No acute fracture. No dislocation. SOFT TISSUES: Unremarkable. LYMPH NODES: Unremarkable. No enlarged lymph nodes. IMPRESSION: 1. No pulmonary embolism or aortic aneurysm. No pulmonary artery ectasia. No acute cardiopulmonary abnormality. 2. Bilateral upper lobe predominant areas of subtle lucency, suspicious for atypical pulmonary cysts versus early centrilobular and paraseptal emphysematous changes. Recommend further characterization by nonemergent high-resolution chest CT. . ED course: Patient care was assumed from physician children's nursery assistant at 3 AM. I was asked to follow-up CT angio for pulmonary embolus. Also provide appropriate disposition for the patient. When I entered the room patient became upset and irritable and decided to leave the emergency department. Will provide informed discharge at this time CT angio revealed no signs of pulmonary embolus and some signs of chronic appearing emphysematous changes. Labs today basically unremarkable. At this time patient is stable for discharge home. . 04:34 ED course: Basically patient refused to cooperate for additional questioning and sp4 expressed her wish to leave the emergency room. . 11/30 23:52 Order name: Basic Metabolic Panel; Complete Time: 00:34 sb4 11/30 23:52 Order name: CBC with Diff; Complete Time: 00:15 sb4 11/30 23:52 Order name: D-Dimer; Complete Time: 00:21 sb4 11/30 23:52 Order name: LFT's; Complete Time: 00:34 sb4 11/30 23:52 Order name: Magnesium; Complete Time: 00:34 sb4 11/30 23:52 Order name: Troponin HS; Complete Time: 00:34 sb4 12/01 02:27 Order name: Test, Urine; Complete Time: 02:47 pf1 12/01 02:27 Order name: Urinalysis w/ reflexes; Complete Time: 02:47 pf1 11/30 23:52 Order name: XRAY Chest (1 view) sb4 12/01 00:22 Order name: Chest For PE Angio CT sb4 11/30 23:52 Order name: EKG; Complete Time: 23:53 sb4 11/30 23:52 Order name: Cardiac monitoring; Complete Time: 00:05 sb4 11/30 23:52 Order name: EKG - Nurse/Tech; Complete Time: 00:13 sb4 11/30 23:52 Order name: IV Saline Lock; Complete Time: 00:05 sb4 11/30 23:52 Order name: Labs collected and sent; Complete Time: 00:05 sb4 11/30 23:52 Order name: O2 Per Protocol; Complete Time: 00:05 sb4 11/30 23:52 Order name: O2 Sat Monitoring; Complete Time: 00:05 sb4 EC:15 Rate is 64 beats/min. Rhythm is irregular, Sinus arrythmia. DC interval is normal at sb4 126 msec. QRS interval is normal at 92 msec. QT interval is normal at [address] changes noted. Clinical impression: Normal ECG. Interpreted by me. Reviewed by me. Administered Medications: 00:05 Drug: NS 0.9% IV 1000 ml Route: IV; Rate: 1 bolus; Site: right antecubital; pf1 05:10 Follow up: Response: No adverse reaction; Marked relief of symptoms; IV Status: pf1 Completed infusion; IV Intake: 1000ml 00:10 Drug: Ondansetron IVP 4 mg Route: IVP; Site: right antecubital; pf1 01:00 Follow up: Response: No adverse reaction; Marked relief of symptoms; Nausea is decreasedpf1 00:30 Drug: Acetaminophen PO 1000 mg Route: PO; pf1 01:30 Follow up: Response: No adverse reaction; Marked relief of symptoms; Pain is decreased pf1 Disposition: 03:37 Co-signature as Attending Physician, Jonn Carl MD I agree with the assessment sp4 and plan of care. I reviewed the patient's care provided by Advanced Practice Provider \T\ agree w/ the diagnosis \T\ care plan. I personally saw the pt \T\ performed a substantive portion of the visit, incldng all aspects of the (History/Exam/Medical Decision Making). Disposition Summary: 12/01/22 04:34 Discharge Ordered Location: Home sp4 Problem: new sp4 Symptoms: have improved sp4 Condition: Stable sp4 Diagnosis - Dehydration sp4 - Irritability and anger sp4 - Impulse disorder, unspecified sp4 Followup: sb4 - With: Private Physician - When: As needed - Reason: Recheck today's complaints, Continuance of care, Re-evaluation by your physician Discharge Instructions: - Discharge Summary Sheet sb4 - Dehydration, Adult sb4 Forms: - Patient Portal Instructions sp4 Signatures: Dispatcher [employer] Alysa Barillas, CATIEC PAKulwinder sb4 Elena Curran RN RN pf1 Jonn Carl MD MD sp4
[2022-12-01 05:21] VITALS: TEMP 98
[2022-12-01 05:36] VITALS: O2SAT 100
[2022-12-01 05:38] VITALS: BP 110/74
--- NOTE | 2022-12-01 13:00 | EKG ---
Test Date: 2022-12-01 Test Time: 00:10:56 Seaming Machine Operator: YOGI MEASUREMENT RESULTS: Intervals: Rate: 64 MI: 126 QRSD: 92 QT: 418 QTc: 431 Buchtel: P: 65 MI: 126 QRS: 83 T: 35 INTERPRETIVE STATEMENTS: Normal sinus rhythm with sinus arrhythmia Normal ECG Compared to ECG 12/30/2014 23:58:51 Incomplete right bundle-branch block no longer present Electronically Signed On 12-01-22 12:58:40 CDT by Ty Weber
--- NOTE | 2022-12-01 13:12 | RAD REPORT ---
EXAM DESCRIPTION: RAD - Chest Single View - 12/01/2022 12:20 am CLINICAL HISTORY: 32 years Female CHEST PAIN TECHNIQUE: One view of the chest. COMPARISON: No prior exams provided for comparison. FINDINGS: The lungs are clear without focal consolidation, effusion, or pneumothorax. The cardiomedi astinal silhouette and central pulmonary vasculature are normal. No acute osseous abnormalities. IMPRESSION: No acute cardiopulmonary abnormalities. Electronically signed by: Adele Ferguson MD 12/01/2022 12:32 AM CDT Due to temporary technical issues with the PACS/Fluency reporting system, reports are being signed by the in house radiologist without review as a courtesy to ensure prompt reporting. The interpreting r adiologist is fully responsible for the content of the report.
--- NOTE | 2022-12-02 15:24 | RAD REPORT ---
EXAM DESCRIPTION: CT - Chest For Pe Angio - 12/01/2022 3:10 am CLINICAL HISTORY: The patient is 32 years old and is Female; CHEST PAIN [facility] MAIN TECHNIQUE: Axial computed tomographic angiography images of the chest with intravenous contrast. S agittal and coronal reformatted images were created and reviewed. This CT exam was performed using one or more of the following dose reduction techniques: automated exposure control, adjustment of t he mA and/or kV according to patient size, and/or use of iterative reconstruction technique. MIP reconstructed images were created and reviewed. COMPARISON: No relevant prior studies available. FINDINGS: PULMONARY ARTERIES: Unremarkable. No pulmonary embolism or aortic aneurysm. No pulmonary artery ectasia. AORTA: No acute findings. No thoracic aortic aneurysm. LUNGS: Trace biapical scarring. Bilateral upper lobe predominant areas of subtle lucency, suspicious for atypical pulmonary c ysts versus early centrilobular and paraseptal emphysematous changes. No mass. PLEURAL SPACE: Unremarkable. No focal consolidation. No pleural effusion or pneumothorax. HEART: Unremarkable. No cardiomegaly. No significant pericardial effusion. No evidence of RV dysfunction. BONES/JOINTS: No acute fracture. No dislocation. SOFT TISSUES: Unremarkable. LYMPH NODES: Unremarkable. No enlarged lymph nodes. IMPRESSION: 1. No pulmonary embolism or aortic aneurysm. No pulmonary artery ectasia. No acute c ardiopulmonary abnormality. 2. Bilateral upper lobe predominant areas of subtle lucency, suspicious for atypical pulmonary cyst s versus early centrilobular and paraseptal emphysematous changes. Recommend further characterizati on by nonemergent high-resolution chest CT. Electronically signed by: Odell Ayon MD 12/01/2022 3:35 AM CDT Due to temporary technical issues with the PACS/Fluency reporting system, reports are being signed by the in house radiologists without review as a courtesy to insure prompt reporting. The interpreting radiologist is fully responsible for the content of the report.
== END 2022-12-01 05:11 | disposition home or self-care (01) ==
LOC: ER 23:13
DX: E86.0 Dehydration (principal); R45.4 Irritability and anger; F63.9 Impulse disorder, unspecified; F17.210 Nicotine dependence, cigarettes, uncomplicated; Z88.8 Allergy status to other drugs, medicaments and biological substances
CPT/HCPCS: 93005; 85025; 81001; 80048; 36415; 83735; 81025; 85379; 80076; 84484; 71275; 71045; Q9967; J2405

== ENCOUNTER 2023-01-14 04:51 | Emergency (ER) | payer OTHER ==
[2023-01-14] MEDS ORDERED: NA CHLORIDE 0.9% 1,000 ML ONE (05:33)
[2023-01-14] MEDS ORDERED: KETOROLAC 30 MG/ML INJ ONE (05:33)
[2023-01-14 05:37] LABS: Specific Gravity 1.031 (1.005-1.030)
[2023-01-14 05:40] LABS: Calcium Oxalate Crystals- Ur Few /HPF (None Seen); Specific Gravity > 1.030 (1.005-1.030); Urine Bacteria None Seen /HPF (<20); Urine Bilirubin NEGATIVE (Negative); Urine Blood Negative (Negative); Urine Clarity Extremely Turbid (Clear); Urine Color Yellow (Yellow); Urine Glucose NEGATIVE (Negative); Urine Mucus Slight /HPF (None Seen); Urine Protein TRACE (Negative); Urine RBC <5 /HPF (None Seen); Urine Urobilinogen Normal (Normal)
[2023-01-14 05:41] LABS: Absolute Lymphocytes (CBC) 3.5 K/uL (0.7-4.9); Hematocrit 43.3 % (36.0-45.0); Lymphocytes % 30.6 % (15.3-44.8); MCV 97.2 fL (80-100); MPV 8.7 fL (7.6-11.3); Platelets 250 thou/uL (152-406); RBC Red Blood Cell Count 4.46 M/uL (3.86-4.86)
[2023-01-14 05:52] LABS: Albumin 4.1 g/dL (3.4-5.0); Bilirubin Total 0.4 mg/dL (0.2-1.0); Potassium 4.1 mEq/L (3.5-5.1); Protein, Total 7.6 g/dL (6.4-8.2)
--- NOTE | 2023-01-14 07:01 | ER ---
Nurse's Notes [facility] Name: wGen Cheema Age: 32 yrs Sex: Female : 1990 Arrival Date: 01/14/2023 Time: 04:51 Bed 5 Private MD: Diagnosis: Low back pain;Bipolar disorder, unspecified Presentation: 01/14 05:07 Chief complaint: Patient states: lower back pain, sudden onst, x 4 days. denies N/V/D/ rv urgency/frequency/burning urination/fever. Coronavirus screen: At this time, the client does not indicate any symptoms associated with coronavirus-19. Ebola Screen: No symptoms or risks identified at this time. Initial Sepsis Screen: Does the patient meet any 2 criteria? No. Patient's initial sepsis screen is negative. Does the patient have a suspected source of infection? No. Patient's initial sepsis screen is negative. Risk Assessment: Do you want to hurt yourself or someone else? Patient reports no desire to harm self or others. Onset of symptoms was January 10, 2023. 05:07 Method Of Arrival: Ambulatory 05:07 Acuity: MIS 3 rv Triage Assessment: 05:09 General: Appears in no apparent distress. Behavior is calm, cooperative. Pain: rv Complains of pain in lower back, mid. Neuro: Level of Consciousness is awake, alert, obeys commands, Oriented to person, place, time, situation. Cardiovascular: Capillary refill < 3 seconds Patient's skin is warm and dry. Respiratory: Airway is patent Respiratory effort is even, unlabored. GI: No signs and/or symptoms were reported involving the gastrointestinal system. : No signs and/or symptoms were reported regarding the genitourinary system. Musculoskeletal: Circulation, motion, and sensation intact. Range of motion: intact in all extremities. Historical: - Allergies: 05:09 Geodon; rv 05:09 RISPERIDONE; rv 05:09 Zoloft; rv 05:09 Zyprexa; rv - PMHx: 05:09 Anxiety; Bipolar disorder; Depression; PTSD; Seizures; rv - PSHx: 05:09 ruptured ovarian cyst; rv - Immunization history:: Adult Immunizations up to date. - Social history:: Smoking status: Patient denies any tobacco usage or history of. - Family history:: not pertinent. Screenin:10 [facility] ED Fall Risk Assessment (Adult) History of falling in the last 3 months, rv including since admission No falls in past 3 months (0 pts) Score/Fall Risk Level 0 - 2 = Low Risk Oriented to surroundings, Maintained a safe environment, Educated pt \T\ family on fall prevention, incl call for assistance when getting out of bed, Assessed \T\ reinforced patient's understanding of fall precautions, Provided non-skid footwear, Hourly rounding (assess needs \T\ fall precautionary measures) done, Used ambulatory aids as needed (educated on \T\ assisted with), Used gait belt as appropriate. Abuse screen: Denies threats or abuse. Denies injuries from another. Nutritional screening: No deficits noted. Tuberculosis screening: No symptoms or risk factors identified. Assessment: 05:10 Reassessment: see triage notes. Neuro: Level of Consciousness is awake, alert, obeys rv commands. 06:47 Reassessment: Patient and/or family updated on plan of care and expected duration. Pain rv level reassessed. Patient is alert, oriented x 3, equal unlabored respirations, skin warm/dry/pink. 07:30 General: Appears in no apparent distress. comfortable, Behavior is calm, cooperative. rs5 Pain: Complains of pain in lower back pain Pain does not radiate. Pain currently is 8 out of 10 on a pain scale. Quality of pain is described as aching, Pain began 4 days ago Is continuous, Aggravated by repositioning. Neuro: Level of Consciousness is awake, alert, obeys commands, Oriented to person, place, time, situation. Cardiovascular: Rhythm is regular. Respiratory: Airway is patent Respiratory effort is even, unlabored, Respiratory pattern is regular, symmetrical. GI: Abdomen is flat, non-distended, Abd is soft and non tender X 4 quads. : No signs and/or symptoms were reported regarding the genitourinary system. EENT: No signs and/or symptoms were reported regarding the EENT system. Derm: Skin is pink, warm \T\ dry. Musculoskeletal: Range of motion: intact in all extremities. 08:00 Reassessment: Patient states feeling better. rs5 08:00 Pain: Complains of pain in lower back Pain does not radiate. Pain currently is 2 out of rs5 10 on a pain scale. Quality of pain is described as aching, Is continuous. Vital Signs: 05:07 BP 112 / 86; Pulse 86; Resp 17; Temp 97.9; Pulse Ox 100% on R/A; Weight 44.91 kg; rv Height 5 ft. 5 in. ; 06:47 BP 111 / 88; Pulse 86; Resp 17; Pulse Ox 99% ; rv 08:00 BP 112 / 86; Pulse 77; Resp 17; Temp 98(O); Pulse Ox 99% ; rs5 05:07 Body Mass Index 16.47 (44.91 kg, 165.1 cm) rv Spencer Coma Score: 06:47 Eye Response: spontaneous(4). Motor Response: obeys commands(6). Verbal Response: rv oriented(5). Total: 15. ED Course: 04:53 Patient arrived in ED. mr 05:00 Paul Floyd, MATEO is Primary Nurse. rv 05:06 Soy Dave MD is Attending Physician. richelle 05:09 Triage completed. rv 05:09 Arm band placed on right wrist. rv 05:10 Patient has correct armband on for positive identification. Provided Education on: UTI. rv Client placed on continuous cardiac and pulse oximetry monitoring. NIBP monitoring applied. 05:24 Inserted saline lock: 20 gauge in right antecubital area, using aseptic technique. rv Blood collected. 06:12 CT Abd/Pelvis - Without Contrast In Process Unspecified. EDMS 08:34 No provider procedures requiring assistance completed. IV discontinued, intact, rs5 bleeding controlled, No redness/swelling at site. Pressure dressing applied. Administered Medications: 05:24 Drug: NS 0.9% IV 1000 ml IV at 1 bolus Per protocol; 1000 mL bolus Route: IV; Rate: 1 rv bolus; Site: right antecubital; 06:48 Follow up: Response: No adverse reaction; IV Status: Completed infusion rv 05:24 Drug: TORadol - Ketorolac IVP 15 mg IVP once Route: IVP; Site: right antecubital; rv 06:48 Follow up: Response: No adverse reaction rv 07:38 Drug: Ondansetron IVP 4 mg IVP once; over 2 minutes Route: IVP; Site: right antecubital;rs5 08:00 Follow up: Response: No adverse reaction rs5 07:38 Drug: morphine IVP or IV 4 mg IVP once over 4 mins Route: IVP; Infused Over: 4 mins; rs5 Site: right antecubital; 08:00 Follow up: Response: No adverse reaction rs5 Medication: 05:10 VIS not applicable for this client. rv Outcome: 07:00 Discharge ordered by . richelle 08:34 Discharged to home ambulatory, rs5 08:34 Condition: stable 08:34 Discharge instructions given to patient, Instructed on discharge instructions, medication usage, Demonstrated understanding of instructions, follow-up care, medications, Prescriptions given X 2, 08:40 Patient left the ED. rs5 Signatures: Dispatcher [employer] EDMS Soy Dave MD MD cha Rivera, Verónica, Reg Reg mr Paul Floyd RN RN Haresh Ling RN RN rs5 Corrections: (The following items were deleted from the chart) 07:44 07:30 Reassessment: Pt complaining of lower back pain bilat 8/10. Pt describes pain as rs5 dull, achey. rs5 08:37 07:30 Reassessment: Pt complaining of lower back pain bilat 8/10. Pt describes pain as rs5 dull, achey. rs5 08:38 08:37 Response: No adverse reaction rs5 rs5 08:38 08:38 Response: No adverse reaction rs5 rs5
--- NOTE | 2023-01-14 07:01 | EDPHYS ---
Physician Documentation [facility] Name: Gwen Cheema Age: 32 yrs Sex: Female : 1990 Arrival Date: 01/14/2023 Time: 04:51 Bed 5 Private MD: ANDREY Physician Soy Dave HPI: 01/14 05:09 This 32 yrs old Female presents to ER via Ambulatory with complaints of Back Pain. richelle 05:09 The patient presents with pain that is acute, that is chronic, with no known mechanism richelle of injury. The symptoms are located in the low back, lumbar area, left low back and right low back. Onset: The symptoms/episode began/occurred 2 day(s) ago. The pain does not radiate. Associated signs and symptoms: Pertinent positives: abdominal pain. The problem was sustained without known cause, from unknown cause. Modifying factors: The patient symptoms are alleviated by nothing, the patient symptoms are aggravated by nothing. Severity of symptoms: At their worst the symptoms were mild, in the emergency department the symptoms are unchanged. The patient has experienced similar episodes in the past, a few times. Historical: - Allergies: 05:09 Geodon; rv 05:09 RISPERIDONE; rv 05:09 Zoloft; rv 05:09 Zyprexa; rv - PMHx: 05:09 Anxiety; Bipolar disorder; Depression; PTSD; Seizures; rv - PSHx: 05:09 ruptured ovarian cyst; rv - Immunization history:: Adult Immunizations up to date. - Social history:: Smoking status: Patient denies any tobacco usage or history of. - Family history:: not pertinent. ROS: 05:09 Constitutional: Negative for fever, chills, and weight loss, Eyes: Negative for injury, richelle pain, redness, and discharge, ENT: Negative for injury, pain, and discharge, Neck: Negative for injury, pain, and swelling, Cardiovascular: Negative for chest pain, palpitations, and edema, Respiratory: Negative for shortness of breath, cough, wheezing, and pleuritic chest pain, Abdomen/GI: Negative for abdominal pain, nausea, vomiting, diarrhea, and constipation, : Negative for injury, bleeding, discharge, and swelling, MS/Extremity: Negative for injury and deformity, Skin: Negative for injury, rash, and discoloration, Neuro: Negative for headache, weakness, numbness, tingling, and seizure, 05:09 Back: Positive for pain with movement, of the left low back, left mid back, right mid back and right low back, Exam: 05:09 Constitutional: This is a well developed, well nourished patient who is awake, alert, richelle and in no acute distress. Head/Face: Normocephalic, atraumatic. Eyes: Pupils equal round and reactive to light, extra-ocular motions intact. Lids and lashes normal. Conjunctiva and sclera are non-icteric and not injected. Cornea within normal limits. Periorbital areas with no swelling, redness, or edema. ENT: Nares patent. No nasal discharge, no septal abnormalities noted. Tympanic membranes are normal and external auditory canals are clear. Oropharynx with no redness, swelling, or masses, exudates, or evidence of obstruction, uvula midline. Mucous membranes moist. Neck: Trachea midline, no thyromegaly or masses palpated, and no cervical lymphadenopathy. Supple, full range of motion without nuchal rigidity, or vertebral point tenderness. No Meningismus. Chest/axilla: Normal chest wall appearance and motion. Nontender with no deformity. No lesions are appreciated. Cardiovascular: Regular rate and rhythm with a normal S1 and S2. No gallops, murmurs, or rubs. Normal PMI, no JVD. No pulse deficits. Respiratory: Lungs have equal breath sounds bilaterally, clear to auscultation and percussion. No rales, rhonchi or wheezes noted. No increased work of breathing, no retractions or nasal flaring. Abdomen/GI: Soft, non-tender, with normal bowel sounds. No distension or tympany. No guarding or rebound. No evidence of tenderness throughout. Female : Normal external genitalia. Skin: Warm, dry with normal turgor. Normal color with no rashes, no lesions, and no evidence of cellulitis. MS/ Extremity: Pulses equal, no cyanosis. Neurovascular intact. Full, normal range of motion. Neuro: Awake and alert, GCS 15, oriented to person, place, time, and situation. Cranial nerves II-XII grossly intact. Motor strength 5/5 in all extremities. Sensory grossly intact. Cerebellar exam normal. Normal gait. Psych: Awake, alert, with orientation to person, place and time. Behavior, mood, and affect are within normal limits. 05:09 Back: pain, is absent, ROM is normal, normal spinal alignment noted, CVA tenderness, that is mild, muscle spasm, is not present, Vital Signs: 05:07 BP 112 / 86; Pulse 86; Resp 17; Temp 97.9; Pulse Ox 100% on R/A; Weight 44.91 kg; rv Height 5 ft. 5 in. ; 06:47 BP 111 / 88; Pulse 86; Resp 17; Pulse Ox 99% ; rv 08:00 BP 112 / 86; Pulse 77; Resp 17; Temp 98(O); Pulse Ox 99% ; rs5 05:07 Body Mass Index 16.47 (44.91 kg, 165.1 cm) rv Mal[place] Coma Score: 06:47 Eye Response: spontaneous(4). Motor Response: obeys commands(6). Verbal Response: rv oriented(5). Total: 15. MDM: 05:[address] [facility] 05:12 Differential diagnosis: chronic back pain, Peptic Ulcer Pyelonephritis Renal Infarction richelle ruptured disc, Scoliosis spinal injury, sprain, Ureterolithiasis vertebral fracture. Data reviewed: vital signs, nurses notes, lab test result(s), EKG, radiologic studies, CT scan, plain films. Consideration of Admission/Observation Escalation of care including admission/observation considered. I considered the following discharge prescriptions or medication management in the emergency department Medications were administered in the Emergency Department. See MAR. Independent interpretation of the following test(s) in the Emergency Department CT Scan: My interpretation is ct abd/pel. Test considered but Not performed: MRI: no mri spine. Historians other than the Patient: patient. Care significantly affected by the following chronic conditions: anxierty, bipolar, depression, seizore. 01/14 05:09 Order name: CBC with Diff; Complete Time: 06:[address] [facility] 01/14 05:09 Order name: CMP; Complete Time: 06:[address] [facility] 01/14 05:09 Order name: Lipase; Complete Time: 06:[address] [facility] 01/14 05:09 Order name: Test, Urine; Complete Time: 06:[address] [facility] 01/14 05:09 Order name: Urinalysis w/ reflexes; Complete Time: 06:[address] [facility] 01/14 05:09 Order name: CT Abd/Pelvis - Without Contrast [facility] 01/14 05:09 Order name: IV Saline Lock; Complete Time: 05:[address] [facility] 01/14 05:09 Order name: Labs collected and sent; Complete Time: 05:25 richelle Administered Medications: 05:24 Drug: NS 0.9% IV 1000 ml IV at 1 bolus Per protocol; 1000 mL bolus Route: IV; Rate: 1 rv bolus; Site: right antecubital; 06:48 Follow up: Response: No adverse reaction; IV Status: Completed infusion rv 05:24 Drug: TORadol - Ketorolac IVP 15 mg IVP once Route: IVP; Site: right antecubital; rv 06:48 Follow up: Response: No adverse reaction rv 07:38 Drug: Ondansetron IVP 4 mg IVP once; over 2 minutes Route: IVP; Site: right antecubital;rs5 08:00 Follow up: Response: No adverse reaction rs5 07:38 Drug: morphine IVP or IV 4 mg IVP once over 4 mins Route: IVP; Infused Over: 4 mins; rs5 Site: right antecubital; 08:00 Follow up: Response: No adverse reaction rs5 Disposition Summary: 01/14/23 07:00 Discharge Ordered Notes: Location: Home [facility] Problem: new [facility] Symptoms: have improved richelle Condition: Stable richelle Diagnosis - Low back pain richelle - Bipolar disorder, unspecified richelle Followup: richelle - With: Private Physician - When: 2 - 3 days - Reason: Recheck today's complaints, Continuance of care, Re-evaluation by your physician Discharge Instructions: - Discharge Summary Sheet richelle - Acute Back Pain, Adult richelle - Musculoskeletal Pain richelle - Chronic Back Pain, [id number] [facility] Forms: - Medication Reconciliation Form [facility] - Thank You Letter [facility] - Antibiotic Education [facility] - Prescription Opioid Use [facility] - Patient Portal Instructions [facility] - Leadership Thank You Letter [facility] Prescriptions: - diclofenac sodium 50 mg Oral tablet, delayed release (enteric coated) - take 1 tablet ORAL route 3 times per day; 30 tablet; Refills: 0, Product [facility] Selection Permitted - Cyclobenzaprine 5 mg Oral Tablet - take 1 tablet ORAL route 3 times per day As needed; 15 tablet; Refills: 0, [facility] Product Selection Permitted Signatures: Dispatcher [employer] Soy Anguiano MD MD cha Vicente, Ronaldo, RN RN Haresh Ling RN RN rs5
--- OUTSIDE RECORDS SUMMARY | 2023-01-14 07:29 | XMS REPORT | Continuity of Care Document ---
:1990 Author Organization [facility] t Address [address] [place] [address] [place] [id number] Care Team Providers Name Role Phone Sara SUE, [place] Primary Care Physician [phone] YANICK LYLE Attending Clinician Unavailable Doctor Unassigned, [place] Attending Clinician Unavailable Cathie Subramanian MD Attending [...] Policy Number Effective Date Expiration Date Briana [facility] [id number] 2020 HEALTH 00:00:00 [facility] [place] [id number] 2019 WOMEN 00:00:00 [facility] [id number] 2018 CHOICE MEDICAID 00:00:00 Problems Condition Condition [...] maternal 1-08 ity of glucose glucose 00:00: [place] tolerance, tolerance, 00 Me dical antepartum antepartum Br anch Underweigh Underweigh Disease Active 2018- U nivers t t 9 ity of [...] 01-17 it y of matic matic 00:00: [place] stress stress 00 Medical disorder) disorder) Bran ch Trichomona Trichomona Disease Active U nivers l l 7 ity of vulvovagin vul[place] [facility] Hepatitis Hepatitis Disease Active Overview: Univers C antibody C antibody 10-25 Formattin ity of test test 00:00: g of this [place] positive positive 00 note Medica l might be Branch different from the original. PCR negative Multiparit Multiparit Disease Active U nivers y y 6- ity of 00:00: [place] 00 Medical Branch Eating Eating Disease Active Univers disorder disorder 10-22 ity of 00:00: Medical Branch Anxiety Anxiety Disease Active Univers and and 10-22 ity of depression [place] Lost Lost Disease Active Univers custody of custody of 10-22 it y of children children 00:00: [place] Medical [facility] History of History of Disease Active U nivers seizures seizures 10-22 ity of 00:00: Medical Branch Allergies, Adverse Reactions, Alerts Allergy Allergy Status Severity Reaction(s) Onset Inactive Treating Comm ents Source Name Type Date Date Clinician Mesna - Propensi Active Intraven ty to 6-24 ous adverse 00:00: reaction 00 to drug Ziprasid Propensi Active Hallucinatio Univers one ty to ns 1-10 ity of Mesylate adverse 00:00: [place] reaction 00 [facility] s Branch Risperid Propensi Active Hallucinatio Univers one ty to ns 1-10 ity of adverse 00:00: [place] reaction 00 [facility] ZIPRASID DRUG Active Hallucinates Un [place] ONE INGREDI 1-10 ity of MESYLATE 00:00: [place] [facility] [place] RISPERID DRUG Active Hallucinates [place] ONE INGREDI 1-10 ity of 00:00: [place] [facility] NO KNOWN Drug Active Univers ALLERGIE Class ity of S [facility] Social History Social Habit Start Date Stop Date Quantity Comments Source History of tobacco 2001-10-22 Cigarette Smoker University of use 00:00:00 [facility] History SDOH University o f Alcohol Std Drinks [facility] History [facility] University o f Alcohol Binge [facility] al [place] History [facility] University o f Alcohol Comment [place] Med ical Branch Exposure to 2022-04-20 2022-04-30 Not sure University of SARS-CoV-2 (event) 00:00:00 14:04:00 [facility] Alcohol intake 2022-04-30 2022-04-30 0 /d University of 00:00:00 00:00:00 [facility] Cigarettes smoked 2022-04-30 2022-04-30 Univers ity of current (pack per 00:00:00 00:00:00 [facility] ) - Reported Branch Tobacco use and 2022-04-30 2022-04-30 Smokeless Universit y of exposure 00:00:00 00:00:00 tobacco non-user [facility] dical [place] Tobacco Comment 2022-04-30 2022-04-30 Has too much Univers ity of 00:00:00 00:00:00 stress to quit [facility] History SDOH 2018-10-22 2018-10-22 1 University o f Alcohol Frequency 00:00:00 00:00:00 [facility] Sex Ass[birth year] At [birth year] Universit y of 00:00:00 00:00:00 [facility] Smoking Status Start Date Stop Date Source Smokes tobacco daily 2022-04-30 00:00:00 Univers ity of [facility] Medications Ordered Filled Start Stop Current Ordering Indication Dosage Frequency Signature Comments Components Source Medication Medication Date Date Medication? Clinician (SIG) Name Name No known No No known Unive rs medications - medication it y of 14:13: [address] No known No No known Unive rs medications 04-30 medication it y of 14:13: [address] No known No No known Unive rs medications 04-30 medication it y of 14:13: [address] TAKE 1 2021-04 No CAPSULE BY 0-27 MOUTH TWICE 00:00: DAILY 00 TAKE 1 No TABLET BY 9-13 MOUTH EVERY 00:00: 8 HOURS 00 WITH FOOD AND DRINK PLENTY OF WATER FOR PAIN TAKE No TABLET BY 9-13 MOUTH EVERY 00:00: 8 HOURS 00 WITH FOOD AND DRINK PLENTY OF WATER FOR PAIN BUSPIRONE 2021-0 No TAB 15MG 12-23 00:00: 00 BUSPIRONE 2021-0 No TAB 15MG 12-23 00:00: 00 QUETIAPINE 2021-0 No TAB 25MG 12-16 00:00: 00 QUETIAPINE 2021-0 No TAB 25MG 12-16 00:00: 00 Dose 2021-0 No Unknown 12-03 00:00: 00 Dose 2021-0 No Unknown 12-03 00:00: 00 Dose 2022-0 No Unknown 7-08 00:00: 00 Dose 2022-0 No Unknown 7-08 00:00: 00 Dose 2-0 No Unknown 7-08 00:00: 00 Dose 2-0 No Unknown 7-08 00:00: 00 Dose 2022-0 No Unknown 7-08 00:00: 00 Dose 2022-0 No Unknown 7-08 00:00: 00 Dose 2022-0 No Unknown 7-08 00:00: 00 Dose 2022-0 No Unknown 7-08 00:00: 00 Dose 2022-0 No Unknown 7-08 00:00: 00 Dose 2-0 No Unknown 7-08 00:00: 00 Dose 2021-0 No Unknown 7-06 00:00: 00 Dose 2021-0 No Unknown 7-06 00:00: 00 Dose 2021-0 No Unknown 7-06 00:00: 00 Dose 2-0 No Unknown 7-06 00:00: 00 Dose 2021-0 No Unknown 7-06 00:00: 00 Dose 2021-0 No Unknown 7-06 00:00: 00 Dose 2021-0 No Unknown 7-06 00:00: 00 Dose 2021-0 No Unknown 7-06 00:00: 00 Dose 2021-0 No Unknown 7-06 00:00: 00 iopamidol 2021-0 2021- No [id number] 80mL 80 mL, Un [place] (ISOVUE 6-30 [...] 600 mg 6-24 tablet 00:00: 00 amoxicillin 2022-0 No 1mg 500 mg 6-24 capsule 00:00: 00 ibuprofen 202-0 No 1mg 600 mg 6-24 tablet 00:00: 00 amoxicillin 2-0 No 1mg 500 mg 6-24 capsule 00:00: 00 ketorolac 2021-0 2021- No 30mg 30 mg, Unive rs (TORADOL) 5-30 05-30 Slow IV ity of injection 20:30: 19:44 [place], [place] 30 mg 00 :00 ONCE, 1 Medical dose, On Branch 09/23/21 at 1530, JENNIFER
[facility] Restricted medication : TIMOTEO AMAYA iopamidol 2021- No [id number] 100mL 100 mL, Univers (ISOVUE 5-30 05-30 [...] 00 :00 dose, On Medi erick mg [facility] 09/23/21 at 1445, JENNIFER No known No Univers medications 5-30 ity of 13:33: [address] No known No Univers medications 5-30 ity of 13:33: [address] No known No Univers medications 5-30 ity of 13:33: [address] No known No Univers medications 5-30 ity of 13:33: [address] No known No No known Unive rs medications 5-30 medication it y of 13:33: s [address] No known No No known Unive rs medications 5-30 medication it y of 13:33: s [address] No known 0 No No known Unive rs medications 5-30 medication it y of 13:33: [address] No known No No known Unive rs medications 5-30 medication it y of 13:33: [address] metronidazo 0 No 1mg le 500 mg 4-25 tablet 00:00: 00 Dose 0 No Unknown 4-25 00:00: 00 Dose 0 No Unknown 4-25 00:00: 00 metronidazo 2021-0 [...] No Unknown 4-21 00:00: 00 ProAir HFA 2022-0 No 1mcg/ac 90 4-13 tuation mcg/actuati 00:00: on aerosol 00 inhaler Ventolin 2022-0 No 12mcg/a HFA 90 4-13 ctuatio mcg/actuati 00:00: n on aerosol 00 inhaler ProAir HFA 2022-0 No 1mcg/ac 90 4-13 tuation mcg/actuati 00:00: on aerosol 00 inhaler Ventolin 2022-0 No 12mcg/a HFA 90 4-13 ctuatio mcg/actuati [...] 600 mg 3-21 tablet 00:00: 00 Dose 2021-0 No Unknown 3-21 00:00: 00 Dose 2-0 [...] 600 mg 3-21 tablet 00:00: 00 Dose 2022-0 No Unknown 3-21 [...] 00 Protonix 40 2021-0 No 1mg mg 3-04 tablet,dung 00:00: yed [...] 3-03 tablet,dung 00:00: yed release 00 hydroxyzine 1-0 No 1mg HCl 25 mg 3-03 tablet 00:00: 00 Protonix 40 2021-0 No 1mg mg 3-03 tablet,dung 00:00: yed release 00 hydroxyzine 1-0 No 1mg HCl 25 mg 3-03 tablet 00:00: 00 No known 2020-0 No Univers medications 1-27 ity of 18:00: [address] methylpredn 2020-1 No mg isolone 4 [...] No 1mg mg tablet 0-28 00:00: 00 Vital Signs Vital Name Observation Time Observation Value Comments Source Systolic blood 2022-04-30 148 mm[Hg] pt on the phone University of pressure 20:12:00 [facility] Diastolic blood 2022-04-30 103 mm[Hg] pt on the phone Universit y of pressure 20:12:00 [facility] Heart rate 2022-04-30 108 /min University of 20:12:00 [facility] Systolic blood 2021-09-23 117 mm[Hg] University of pressure 23:07:54 [facility] Diastolic blood 2021-09-23 80 mm[Hg] University o f pressure 23:07:54 [facility] Heart rate 2021-09-23 78 /min University of 23:07:54 [facility] Respiratory rate 2021-09-23 18 /min University 23:07:54 [facility] Oxygen saturation 2021-09-23 98 /min [facility] in Arterial blood 23:07:54 [facility] by Pulse oximetry [place] Body temperature 2021-09-23 36.94 Diya University of 18:10:00 [facility] Body height 2021-09-23 165.1 cm University 18:10:00 [facility] Body weight 2021-09-23 49.896 kg [place] of 18:10:00 [facility] BMI 2021-09-23 18.30 kg/m2 University 18:10:00 [facility] BP Systolic 2022-03-05 09:57:00 BP Diastolic 2022-03-05 09:57:00 Weight Measured 2022-03-05 09:57:00 Height Measured 2022-03-05 09:57:00 Body Temperature 2022-03-05 09:57:00 Heart Rate 2022-03-05 09:57:00 Respiratory Rate 2022-03-05 09:57:00 BP Diastolic 2022-02-13 84 mm[Hg] 14:00:00 Weight Measured 2022-02-13 121.60 pounds 14:00:00 Height Measured 2022-02-13 65.00 inches 14:00:00 Body Temperature 2022-02-13 97.80 degrees 14:00:00 Heart Rate 2022-02-13 81.00 /min 14:00:00 Respiratory Rate 2022-02-13 14:00:00 BP Systolic 2022-02-13 119 mm[Hg] 14:00:00 BP Systolic 2021-10-30 121 mm[Hg] 14:47:00 [...] EXTERNAL PROVIDER 2022-07-01 06:01:00 Doctor Unassigned, No [facility] RECORDS Name [facility] Branch AUTHORIZATION FOR 2021-11-25 05:01:00 Doctor Unassigned, No [facility] RELEASE OF PHI Name Medical Branch REFERRAL- 2021-11-11 05:01:00 Doctor Unassigned, No [facility] REQUEST/RESPONSE Name [facility] US PELVIS COMPLETE WITH 2021-10-24 13:17:52 [facility] CT THORAX W CONTRAST 2021-10-24 13:08:26 Requisition, Paper [facility] CT THORAX WO CONTRAST 2021-10-24 13:08:08 [facility] 2021-09-23 22:52:01 Timoteo Amaya [facility] TRANSVAGINAL [facility] CT ABDOMEN PELVIS W 2021-09-23 20:02:13 Timoteo Amaya [facility] CONTRAST [facility] Branch COMP. METABOLIC PANEL 2021-09-23 19:12:00 Timoteo Amaya [facility] ([id number]) [facility] CBC WITH DIFF 2021-09-23 19:12:00 Timoteo Amaya [facility] POCT TEST 2021-09-23 18:47:00 Timoteo Amaya [facility] URINALYSIS 2021-09-23 18:41:00 Timoteo Amaya [facility] NOTICE OF PRIVACY 2021-09-23 17:59:15 Doctor Unassigned, No [facility] PRACTICES Name [facility] CONSENT/REFUSAL FOR 2021-09-23 17:59:01 Doctor Unassigned, No [facility] Name [facility] [address] Colposcopy Cervix 2021-08-29 00:00:00 Bx Cervix endocrv Curtg Plan of Care Planned Activity Planned Date Details Comments Source Goal Plan of Care Note [code = 14582-6] Goal Plan of Care Note [code = 64447-3] Goal Plan of Care Note [code = 13458-3] Goal Plan of Care Note [code = 90743-4] Goal Plan of Care Note [code = 87407-5] Goal Plan of Care Note [code = 83192-8] Goal Plan of Care Note [code = 13195-7] Goal Plan of Care Note [code = 36443-5] Goal Plan of Care Note [code = 32759-5] Goal Plan of Care Note [code = 95886-5] Goal Plan of Care Note [code = 67821-1] Goal Plan of Care Note [code = 05047-7] Goal Plan of Care Note [code = 26146-1] Goal Plan of Care Note [code = 33464-4] Goal Plan of Care Note [code = 02087-1] Goal Plan of Care Note [code = 20368-2] Goal Plan of Care Note [code = 48030-8] Goal Plan of Care Note [code = 26577-2] Goal Plan of Care Note [code = 72998-5] Goal Plan of Care Note [code = 54676-9] Goal Plan of Care Note [code = 41053-5] Goal Plan of Care Note [code = 10532-7] Goal Plan of Care Note [code = 48859-2] Goal Plan of Care Note [code = 05815-7] Goal Plan of Care Note [code = 78319-6] Goal Plan of Care Note [code = 15981-0] Goal Plan of Care Note [code = 54906-8] Goal Plan of Care Note [code = 56344-8] Goal Plan of Care Note [code = 04059-4] Goal Plan of Care Note [code = 49148-7] Goal Plan of Care Note [code = 00455-3] Goal Plan of Care Note [code = 66298-3] Goal Plan of Care Note [code = 67416-9] Goal Plan of Care Note [code = 30350-8] Goal Plan of Care Note [code = 82092-4] Goal Plan of Care Note [code = 41873-4] Goal Plan of Care Note [code = 31803-8] Goal Plan of Care Note [code = 14689-0] Goal Plan of Care Note [code = 35141-6] Goal Plan of Care Note [code = 75840-5] Goal Plan of Care Note [code = 08640-9] Goal Plan of Care Note [code = 29753-6] Goal Plan of Care Note [code = 87882-3] Goal Plan of Care Note [code = 71307-5] Goal Plan of Care Note [code = 17229-8] Goal Plan of Care Note [code = 72652-8] Goal Plan of Care Note [code = 06126-4] Goal Plan of Care Note [code = 85577-1] Goal Plan of Care Note [code = 63575-6] Goal Plan of Care Note [code = 61343-5] Goal Plan of Care Note [code = 22079-8] Goal Plan of Care Note [code = 35967-5] Goal Plan of Care Note [code = 14299-3] Goal Plan of Care Note [code = 24891-9] Goal Plan of Care Note [code = 32143-5] Goal Plan of Care Note [code = 29456-7] Goal Plan of Care Note [code = 84475-9] Goal Plan of Care Note [code = 80504-7] Goal Plan of Care Note [code = 02235-7] Goal Plan of Care Note [code = 61016-7] Goal Plan of Care Note [code = 18540-4] Goal Plan of Care Note [code = 96764-7] Goal Plan of Care Note [code = 07443-0] Goal Plan of Care Note [code = 97541-3] Goal Plan of Care Note [code = 83398-6] Goal Plan of Care Note [code = 75480-9] Goal Plan of Care Note [code = 92818-8] Goal Plan of Care Note [code = 51537-4] Goal Plan of Care Note [code = 12607-9] Goal Plan of Care Note [code = 31376-9] Goal Plan of Care Note [code = 27000-8] Goal Plan of Care Note [code = 59799-6] Goal Plan of Care Note [code = 90353-8] Goal Plan of Care Note [code = 05236-9] Goal Plan of Care Note [code = 97554-5] Goal Plan of Care Note [code = 57019-6] Goal Plan of Care Note [code = 01447-9] Goal Plan of Care Note [code = 42698-7] Goal Plan of Care Note [code = 32718-1] Goal Plan of Care Note [code = 46969-2] Goal Plan of Care Note [code = 80113-1] Goal Plan of Care Note [code = 11022-5] Goal Plan of Care Note [code = 18151-1] Goal Plan of Care Note [code = 80981-7] Goal Plan of Care Note [code = 30533-8] Goal Plan of Care Note [code = 28361-6] Goal Plan of Care Note [code = 02384-0] Goal Plan of Care Note [code = 07504-0] Goal Plan of Care Note [code = 81176-9] Goal Plan of Care Note [code = 20311-4] Goal Plan of Care Note [code = 66561-9] Goal Plan of Care Note [code = 74007-0] Goal Plan of Care Note [code = 56464-9] Goal Plan of Care Note [code = 89716-1] Goal Plan of Care Note [code = 51815-9] Goal Plan of Care Note [code = 61006-2] Goal Plan of Care Note [code = 91262-4] Goal Plan of Care Note [code = 97606-1] Goal Plan of Care Note [code = 23450-5] Goal Plan of Care Note [code = 54123-7] Goal Plan of Care Note [code = 81206-4] Goal Plan of Care Note [code = 39214-0] Goal Plan of Care Note [code = 23566-3] Goal Plan of Care Note [code = 84500-8] Goal Plan of Care Note [code = 49298-9] Goal Plan of Care Note [code = 76431-6] Goal Plan of Care Note [code = 74353-7] Goal Plan of Care Note [code = 60644-7] Goal Plan of Care Note [code = 16884-3] Goal Plan of Care Note [code = 18476-1] Goal Plan of Care Note [code = 47293-0] Goal Plan of Care Note [code = 88929-0] Goal Plan of Care Note [code = 00283-2] Goal Plan of Care Note [code = 89624-8] Goal Plan of Care Note [code = 99693-3] Goal Plan of Care Note [code = 41499-6] Goal Plan of Care Note [code = 64968-8] Goal Plan of Care Note [code = 47092-4] Goal Plan of Care Note [code = 93965-7] Goal Plan of Care Note [code = 35327-0] Goal Plan of Care Note [code = 25354-1] Goal Plan of Care Note [code = 25632-1] Goal Plan of Care Note [code = 93773-0] Goal Plan of Care Note [code = 60215-1] Goal Plan of Care Note [code = 39490-1] Goal Plan of Care Note [code = 77459-3] Goal Plan of Care Note [code = 41150-1] Goal Plan of Care Note [code = 17742-5] Goal Plan of Care Note [code = 17505-4] Goal Plan of Care Note [code = 21566-3] Goal Plan of Care Note [code = 39573-5] Goal Plan of Care Note [code = 26358-0] Goal Plan of Care Note [code = 53016-7] Goal Plan of Care Note [code = 53991-4] Goal Plan of Care Note [code = 86665-7] Goal Plan of Care Note [code = 02970-5] Goal Plan of Care Note [code = 62376-5] Goal Plan of Care Note [code = 70215-6] Goal Plan of Care Note [code = 37502-3] Goal Plan of Care Note [code = 52013-7] Goal Plan of Care Note [code = 26011-6] Goal Plan of Care Note [code = 37451-7] Goal Plan of Care Note [code = 07906-6] Goal Plan of Care Note [code = 17181-8] Goal Plan of Care Note [code = 23475-7] Goal Plan of Care Note [code = 78852-0] Goal Plan of Care Note [code = 02076-3] Goal Plan of Care Note [code = 26739-0] Encounters Start End Encounter Admission Attending Care Care Encounter Source Date/Time Date/Time Type Type Clinicians Facility Department ID 2021-02-23 Emergency [facility] [id number] Univers 16:17:01 [facility] 2021-02-22 Emergency X VALDO, [facility] SPL [id number] Univers 13:07:11 YANICK [facility] 2023-01-07 2023-01-07 Outpatient SFA SFA [id number] Azam 13:16:59 13:16:59 0913 [facility] 2022-12-03 2022-12-03 Outpatient SFA SFA [id number] Azam 19:26:04 19:26:04 0809 [facility] 2022-11-17 2022-11-17 Outpatient SFA SFA [id number] Azam 13:05:19 13:05:19 0724 [facility] 2022-11-10 2022-11-10 Outpatient SFA SFA [id number] Azam 10:41:21 10:41:21 0717 [facility] 2022-11-08 2022-11-08 Outpatient SFA SFA [id number] Azam 14:16:42 14:16:42 0715 [facility] 2022-10-31 2022-10-31 Outpatient SFA SFA [id number] Azam 14:26:52 14:26:52 0707 [facility] 2022-10-27 2022-10-27 Outpatient SFA SFA [id number] Azam 11:18:15 11:18:15 0703 [facility] 2022-10-24 2022-10-24 Outpatient SFA SFA [id number] Azam 15:42:10 15:42:10 0630 [facility] 2022-07-08 2022-07-08 Outpatient SFA SFA [id number] Azam 14:24:41 14:24:41 0314 [facility] 2022-07-01 2022-07-01 Orders Doctor HEATHER [id number] [id number] Univers 00:00:00 00:00:00 Only Unassigned, LILIAN 350.1.13.10 ity of [place] [facility] 4.2.7.2.686 Segun as [id number] [address] 2022-05-07 2022-05-07 Telephone HARMAN Subramanian 1.2.840.114 [id number] Univers 00:00:00 00:00:00 [facility] 350.1.13.10 it y [facility] 4.2.7.2.686 Segun as MORRO?BLEA [id number] Ne dutch KNEY 198 [facility] 2022-05-05 2022-05-05 [facility]phone [facility] 1.2.840.114 [id number] Univers 00:00:00 00:00:00 Cathie Park HEALTH 350.1.13.10 it y of [place] 4.2.7.2.686 Segun as MORRO?BLEA [id number] Ne dutch RAJAN [address] [place] [address] 2022-05-01 2022-05-01 Outpatient Opal PINK [facility] [id number] Univers 16:00:00 16:00:00 [facility] 2022-04-30 2022-04-30 [facility] [id number] Univers 14:30:00 14:30:00 Visit Cathie MONTERO 350.1.13.10 it y of [place] 4.2.7.2.686 Segun as MORRO?BLEA [id number] Ne dutch RAJAN [address] [place] [address] 2022-04-30 2022-04-30 [facility] [id number] Univers 14:30:00 14:22:11 [facility] 2022-04-29 2022-04-29 [facility] [id number] Univers 14:00:00 14:00:00 [facility] 2022-04-29 2022-04-29 [facility]phone [facility] [id number] Univers 00:00:00 00:00:00 Rivera [employer] 350.1.13.10 it y of [place] 4.2.7.2.686 Segun as M[place]RO?BLEA [id number] Ne dutch RAJAN [address] [place] [address] 2022-04-28 2022-04-28 Telephone [facility] 1.2.840.114 [id number] Univers 00:00:00 00:00:00 Cathie Park HEALTH 350.1.13.10 it y of [place] 4.2.7.2.686 Segun as [place]RO?BLEA [id number] Ne dutch RAJAN [address] [place] [address] 2022-04-25 2022-04-25 Outpatient [facility] [id number] Azam 10:00:19 10:00:19 1230 F [place] 2022-04-01 2022-04-01 Outpatient JESSE SHIELDS [facility] [id number] Univers 14:00:00 [facility]22-[facility] 2022-03-27 Outpatient JESSE SHIELDS [facility] [id number] Univers 13:30:00 13:30:00 [facility] 2022-03-05 2022-03-05 Outpatient [id number] 00:00:00 00:00:00 Visit 8b35-839h q14-476r-z -l74h-tvo 71d-bbd24e 53j3t5ikg 9a5bdc 2022-02-14 2022-02-14 Outpatient Opal ELIUD [facility] [id number] Univers 09:30:00 09:30:00 [facility] 2022-02-13 2022-02-13 Outpatient [facility] [id number] Azam 13:45:00 13:45:00 1020 F Donav[place] 2022-02-13 2022-02-13 Outpatient [id number] 00:00:00 00:00:00 Visit 932d-427d 32d-427d-a -lc37-44d e70-43h8jm 0urw226xs d971ae 2021-11-25 2021-11-25 Orders Doctor HEATHER Jose2.840.114 [id number] Univers 00:00:00 00:00:00 Only Unassigned, LILIAN 350.1.13.10 ity of [facility] 4.2.7.2.686 Segun as [id number] [address] 2021-11-11 2021-11-11 Orders Doctor HEATHER Jose2.840.114 [id number] Univers 00:00:00 00:00:00 Only Unassigned, LILIAN 350.1.13.10 ity of [facility] 4.2.7.2.686 Segun as [id number] [address] 2021-10-30 2021-10-30 Outpatient [id number] 00:00:00 00:00:00 Visit i5w9-514w 2a5-165n-j -pc6d-4os o1m-3tfbzn [id number] 2021-10-24 2021-10-24 Outpatient R RADIOLOGY [facility] [id number] Univers 07:29:35 23:59:00 ity of [facility] 2021-10-24 2021-10-24 Hospital Radiology [facility] 1.2.840.114 [id number] Univers 07:29:35 23:59:00 Encounter HEALTH 350.1.13.10 [place] [id number] [facility] [address] [place] ([employer]) 2021-10-24 2021-10-24 Hospital Radiology [facility] 1.2.840.114 [id number] Univers 07:28:55 07:28:55 Encounter HEALTH 350.1.13.10 [place] [id number] [address] ([employer]) 2021-10-24 2021-10-24 Hospital Radiology [facility] 1.2.840.114 [id number] Univers 07:28:21 07:28:21 Encounter HEALTH 350.1.13.10 [place] [id number] [place] [address]2696 [place] ([employer]) 2021-10-24 2021-10-24 Outpatient R RADIOLOGY [facility] [id number] Univers 00:00:00 00:00:00 ity of [facility] 2021-09-23 2021-09-23 Emergency X BETITO NJLUCIANA ERT [id number] Univers 13:12:00 18:47:00 TIMOTEO ity of [facility] 2021-09-23 2021-09-23 Emergency Betito [facility] [id number] Univers 13:12:00 18:47:00 Timoteo S MERI 350.1.13.10 i ty [place] [id number] [facility] [address] [place] 2021-09-23 2021-09-23 Orders Doctor HEATHER 1.2.840.114 [id number] Univers 00:00:00 00:00:00 Only Unassigned, LILIAN [id number] ity of [facility] [id number] [facility] [id number] [facility] [address] 2021-01-03 2021-01-03 Outpatient R HORTENCIA [facility] [id number] Univers 15:45:00 15:45:00 [facility] 2020-08-09 2020-08-09 Outpatient R HORTENCIA [facility] [id number] Univers 00:00:00 00:00:00 [facility] 2020-06-18 2020-06-18 Outpatient R [facility] [id number] Univers 10:00:00 10:00:00 [facility] 2020-05-23 2020-05-23 Outpatient R HORTENCIA [facility] [id number] Univers 14:45:00 14:45:00 [facility] 2020-05-15 2020-05-15 Outpatient R [facility] [id number] Univers 13:00:00 13:00:00 [facility] 2020-05-11 2020-05-11 Outpatient R [facility] [id number] Univers 13:30:00 13:30:00 [facility] 2020-05-09 2020-05-09 Outpatient R HORTENCIA [facility] [id number] Univers 10:30:00 10:30:00 [facility] 2020-04-04 2020-04-04 Outpatient R KIRK [facility] [id number] Univers 09:45:00 09:45:00 BRYN shipley o f [facility] 2019-12-28 2019-12-28 [facility] [id number] Univers 09:15:00 09:15:00 YANICK [facility] 2019-12-28 2019-12-28 Outpatient FERGILDARDO GUILLEN [facility] [id number] [place] 05[place]38:00 05:[place] [id number] [facility] 2019-12-09 2019-12-09 Outpatient JESUS GUILLEN [facility] [phone] [place] 09:26:00 09:26[place] [id number] [facility] 2019-08-04 2019-08-04 Outpatient R [facility] [id number] Univers 13:30:00 13:30:00 [facility] 2019-07-25 2019-07-25 Outpatient R AMIRA [facility] [id number] Univers 08:00:00 08:00:00 ORENUKA [facility] 2019-07-18 2019-07-18 Outpatient R [facility] [id number] Univers 14:00:00 14:00:00 [facility] 2019-07-18 2019-07-18 Outpatient R AMIRA [facility] [id number] Univers 10:00:00 10:00:00 RENUKA Hauser [facility] 2019-07-11 2019-07-11 Outpatient R JESSE DONG [facility] [id number] Univers 15:00:00 15:00:00 [facility] 2019-06-20 2019-06-20 Outpatient R HORTENCIA, [facility] [id number] Univers 11:00:00 11:00:00 KAREN [facility] 2019-05-10 2019-05-10 Outpatient R CARL WORKMAN [facility] [id number] Univers 08:56:42 23:59:00 [facility] 2019-04-28 2019-04-28 Outpatient P EDUARDO [facility] [id number] Univers 14:00:00 14:00:00 AMNA [facility] 2019-04-18 2019-04-18 Outpatient P ANNA MARIE [facility] [id number] Univers 15:00:00 16:35:19 RUSTAM [facility] 2019-04-14 2019-04-14 Outpatient P ISRAEL PEREZ [facility] [id number] Univers 15:30:00 16:09:05 ISRAEL PEREZ [facility] 2019-04-07 2019-04-07 Outpatient P DEBORAH [facility] [id number] Univers 09:30:00 14:57:02 LENNOX [facility] 2019-01-27 2019-01-27 Outpatient P ANNA MARIE [facility] [id number] Univers 15:00:00 15:00:00 RUSTAM [facility] 2019-01-26 2019-01-26 Outpatient P TAMIKO [facility] [id number] Univers 14:30:00 14:25:24 AZEB [facility] 2018-12-30 2018-12-30 Outpatient P EDUARDO [facility] [id number] Univers 10:00:00 11:14:24 AMNA [facility] 2018-12-29 2018-12-29 Outpatient P BELEN [facility] [id number] Univers 10:45:00 10:45:00 NISH [facility] Results Test Description Test Time Test Comments Results Result Comments Source HERPES SIMPLEX AB, IgM 2023-01-08 20:04:09 Test Item Value Reference Range Interpretation Comme nts HERPES SIMPLEX AB, IgM 1.03 INDEX SEE BELOW H FOR EQUIVOCAL HSV IgM, CONSIDER (test code = 03098) RECOLLEC TION AND RETESTING IgM IN 10-14 DAYS. COR RELATE WITH HSV IgG TESTING AND CLI NICAL HISTORY TO ASSIST WITH INT ERPRETATION. IMPORTANT NOTE: HSV IgM ASSAYS ARE NOT TYPE-SPECIF IC. THE BIOLOGICALIgM R ESPONSE WITH PRIMARY INFECTIONS IS V ARIABLE AND MAY BEUNDETECTABLE; WITH RECURRENT INFECTIONS IgM MAY OR MAY NOT BEDETECTED. FAL SE POSITIVE RESULTS UNRELATED TO HS V INFECTION CAN OCCURWITH HSV I gM ASSAYS. ALL RESULTS SHOULD BE REVIEWED IN CLINICALCONTEXT , AND COMPARISON TO ACUTE OR CONVAL ESCENT TYPE-SPECIFIC YED3EQE HSV2 Ig G ASSAYS SHOULD BE CONSIDERED. INT ERPRETATION UNITS RANGE --------- ----- ----- ----- NEGATIVE INDEX <=0.89 EQUIVOCAL INDEX 0.90-1.09 POSITIVE INDEX >=1.10 PAP TEST, THINPREP, [id number] 14:19:03 Test Item Value Reference Range Interpretation Comments SOURCE: (test Cervical/Endo code = 8001) cervical SLIDES: (test 1 code = 8011) LMP: (test code = 12/26/2022 8021) SPECIMEN (NOTE) Satisfactory f or ADEQUACY: (test evaluation. code = 61242) Endocervical cells/transform ation zone component not identified. INTERPRETATION: NILM/NO (test code = EPITH. --------- 73454) ABNORMALITY;S -------- EE BELOW NEGATIVE FO R INTRAEPITHELIAL LESION OR MALIGNANCY ( NILM) --------- --------- --------- - OTHER COMMENTS: (NOTE) Shift in heather ra (test code = suggestive of b acterial 8081) vaginosis. TRAFFIC RATE COMPUTER: Devora Menezes, (test code = CT (ASCP) 8101) LOCATION: (test (NOTE) Specimens pr ocessed and code = 90125) [facility], [address] [place] [address], , CLIA: [id number] CPT: (test code = (NOTE) 41965 UNLE SS OTHERWISE 8140) INDICATED, COMP UTER AIDED AND CYTOTECHNOLOGIS T SCREENING PERFO RMED. The Pap test is a s creening test with an in herent, but low probabi lity of error. Your pat ient should be remin ded to consult you imm ediately if she experien john any suspicious sign s or symptoms, regar dless of her Pap test re sult. An alternate repor t format containing imag es or consolidated pr ior Pap history is avai lable as applicable. HPV HIGH RISK WITH GENOTYPE, [id number] 14:13:14 Test Item Value Reference Range Interpretation Comments HPV HIGH RISK INTERP NEGATIVE NEGATIVE (test code = 12955) HPV 16 (test code = NEGATIVE 26843) HPV 18 (test code = NEGATIVE 26630) HPV, HR, OTHER NEGATIVE Testing meth odology is GENOTYPES (test code real-ti me PCR utilizing = 36657) hydrolysis prob es with the [employer] Jenniffer 4800 system. The kezia t individually [...] OTHERWISE INDIC ATED, ALL TESTING PERFORM [facility] [place] [address] LABORATORY DIRE CTOR: CYNDEE GRIGSBY M.D. CLIA NUMBER [id number] [facility] [id number] VAGINAL PATHOGENS DNA [id number] 13:04:06 Test Item Value Reference Range Interpretation Comments [...] nalis and Trichomonas vag inalis nucleic acid. CT/NG, NAAT, [id number] 11:41:28 Test Item Value Reference Range Interpretation Comments CHLAMYDIA, NAAT, NEGATIVE NEGATIVE A negative result does THINPREP (test code not excl ude low level = 16113) infection, specimensamplin g error, or collection erro r. Testing is performed wi th the [employer] Jenniffer 680 systems usingre al-time Polymerase Josue n Reaction (PCR) method. GONORRHEA, NAAT, NEGATIVE NEGATIVE A negative result does THINPREP (test code not excl ude low level = 30243) infection, specimensamplin g error, or collection erro r. Testing is performed wi th the [employer] Jenniffer 680 systems usingre al-time Polymerase Josue n Reaction (PCR) method. [id number] 05:38:12 Test Item Value Reference Range Interpretation Comments RPR RESULT (test code = NON-REACTIVE NON-REACTIVE 3501) RPR TITER (test code = 3500) NOT INDIC. TITER NOT INDIC. HIV 1/2 4TH GEN, RFLX [id number] 04:19:13 Test Item Value Reference Range Interpretation Comments HIV 1/2 4TH GEN, RFLX CONF (test NON-REACTIVE NON-REACTIVE code = 3514) HEPATITIS PANEL, [id number] 04:19:13 Test Item Value Reference Range Interpretation Comments HEPATITIS A IgM (test NON-REACTIVE NON-REACTIVE code = 06943) HEPATITIS B CORE IgM NON-REACTIVE NON-REACTIVE (test code = 4644) HEPATITIS B SURF AG NON-REACTIVE NON-REACTIVE (test code = 2739) HEPATITIS C ANTIBODY NON-REACTIVE NON-REACTIVE (test code = 4675) INTERPRETATION (NOTE) Hepatitis A HEPATITIS A: (test code sero logy shows no = 2552) evidence of acu te hepatitis A. INTERPRETATION (NOTE) Hepatitis B HEPATITIS B: (test code sero logy shows no = 28015) evidence of acu te hepatitis B and no indication of exposure to hepatitis B vir us in the previous kiko eight months. INTERPRETATION (NOTE) Hepatitis C HEPATITIS C: (test code sero logy shows no = 50274) evidence of exposure to hepatitisC viru s at this time. I t can take up to 12 months after exposure tothe hepatitis C vir us for antibodies to become detectab le in the blood in certain patient s. HERPES SIMPLEX 1/2 AB, IgG [id number] 04:19:13 Test Item Value Reference Range Interpretation Comments HERPES SIMPLEX 1 11.900 INDEX SEE BELOW H INTERPRETA TION UNITS AB, IgG (test RANGE -------- ------ code = 69979) ----- ----- NO N-REACTIVE INDEX <1.000 RE ACTIVE INDEX >=1.000 HERPES SIMPLEX 2 21.200 INDEX SEE BELOW H INTERPRETA TION UNITS AB, IgG (test RANGE -------- ------ code = 70252) ----- ----- NO N-REACTIVE INDEX <1.000 RE ACTIVE INDEX >=1.000 U NLESS OTHERWISE INDIC ATED, ALL TESTING PERFORM ED [facility], [facility]. [address] [place] [address] LABORATORY DIRE CTOR: YCNDEE GRIGSBY M.D. CLIA NUMBER [id number] [place] [id number] PAP TEST, THINPREP, [id number] 12:31:46 Test Item Value Reference Range Interpretation Comments SOURCE: (test Cervical code = 8001) SLIDES: (test 1 code = 8011) LMP: (test code NOT GIVEN = 8021) SPECIMEN (NOTE) Satisfactory f or ADEQUACY: (test evaluation. code = 90422) Endocervical cells/transform ation zone component present. INTERPRETATION: NILM/NO EPITH. (test code = ABNORMALITY;SEE 40040) BELOW -------- - NEGATIVE FOR INTRAEPITHELIAL LESION OR MALIGNANCY ( NILM) -------- -------- -------- ---- TRAFFIC RATE COMPUTER Devora Menezes CT : (test code = (ASCP) 8101) LOCATION: (test (NOTE) Specimens pr ocessed and code = 75912) [facility] at [facility], [address] [place] [address] 4, Phone: , CLIA: [id number] CPT: (test code (NOTE) 22707 UNLESS OTHERWISE = 8140) INDICATED, COMP UTER AIDED AND CYTOTECHNOLOGIS T SCREENING PERFO RMED. The Pap test is a screening test with an inherent, but l ow probability of error. Your patient sh ould be reminded to con sult you immediately if she experiences any suspicious sign s or symptoms, regar dless of her Pap test re sult. An alternate repor t format containing imag es or consolidated pr ior Pap history is steven henderson as applicable. HPV HIGH RISK WITH GENOTYPE, [id number] 12:26:32 Test Item Value Reference Range Interpretation Comments HPV HIGH RISK INTERP NEGATIVE NEGATIVE (test code = 80722) HPV 16 (test code = NEGATIVE 09491) HPV 18 (test code = NEGATIVE 96325) HPV, HR, OTHER NEGATIVE Testing meth odology is GENOTYPES (test code real-ti me PCR utilizing = 62095) hydrolysis prob es with the [employer] Jenniffer 4800 system. The kezia t individually [...] ATED, ALL TESTING PERFORM ED ATCLINICAL PATH [facility], [place] [address] LABORATORY DIRE CTOR: TERRI GARDNER M.D. CLIA NUMBER [id number] [facility] [place] [id number] CT/NG, NAAT, [id number] 17:17:22 Test Item Value Reference Range Interpretation Comments CHLAMYDIA, NAAT, NEGATIVE NEGATIVE A negative result does THINPREP (test code not excl ude low level = 65618) infection, specimensamplin g error, or collection erro r. Testing is performed wi th the [employer] 680 systems usingre al-time Polymerase Josue n Reaction (PCR) method. GONORRHEA, NAAT, NEGATIVE NEGATIVE A negative result does THINPREP (test code not excl ude low level = 15486) infection, specimensamplin g error, or collection erro r. Testing is performed wi th the [employer] Jenniffer 680 systems usingre al-time Polymerase Josue n Reaction (PCR) method. VAGINAL PATHOGENS DNA [id number] 12:33:41 Test Item Value Reference Range Interpretation [...] nucleic acid. HIV 1/2 4TH GEN, RFLX [id number] 03:14:00 Test Item Value Reference Range Interpretation Comments HIV 1/2 4TH GEN, RFLX CONF (test NON-REACTIVE NON-REACTIVE code = 3514) HEPATITIS PANEL, [id number] 03:14:00 Test Item Value Reference Range Interpretation Comments HEPATITIS A IgM (test NON-REACTIVE NON-REACTIVE code = 62629) HEPATITIS B CORE IgM NON-REACTIVE NON-REACTIVE (test code = 4644) HEPATITIS B SURF AG NON-REACTIVE NON-REACTIVE (test code = 2739) HEPATITIS C ANTIBODY NON-REACTIVE NON-REACTIVE (test code = 4675) INTERPRETATION (NOTE) Hepatitis A HEPATITIS A: (test serology shows no code = 2552) evidence of acu te hepatitis A. INTERPRETATION (NOTE) Hepatitis B HEPATITIS B: (test serology shows no code = 05128) evidence of ac [place] hepatitis B and no indication of exposure to hepatitis B vir us in the previous si xto eight months. INTERPRETATION (NOTE) Hepatitis C HEPATITIS C: (test serology shows no code = 81233) evidence of ex posure to hepatitisC v irus at this time. I t can take up to 12 m onths after exposure tothe hepatitis C vir us for antibodies to become detectab le in the blood in ce rtain patients. UNLES S OTHERWISE INDIC ATED, ALL TESTING PERFORMED [facility], [place]. [address] [place] [address] [facility] DIRECTOR: Fátima FINNEGANIA NUMBER [id number] [place] [id number] 02:43:33 Test Item Value Reference Range Interpretation Comments RPR RESULT (test code = NON-REACTIVE NON-REACTIVE 3501) RPR TITER (test code = 3500) NOT INDIC. TITER NOT INDIC. COMP. METABOLIC PANEL (42143)2021-09-23 19:42:47 Test Item Value Reference Range Interpretation Comments NA (test code = 138 mmol/L 135-145 6530678751) K (test code = 4.8 mmol/L 3.5-5.0 6950002365) CL (test code = 102 mmol/L 98-108 5278787307) CO2 TOTAL (test code 25 mmol/L 23-31 = 9226420934) AGAP (test code = 2-16 5771994358) BUN (test code = 15 mg/dL 7-23 9167995546) GLUCOSE (test code = 90 mg/dL 70-110 2238192845) CREATININE (test code 0.64 mg/dL 0.50-1.04 = 4201251388) TOTAL BILI (test code 0.8 mg/dL 0.1-1.1 = 4640201632) CALCIUM (test code = 9.9 mg/dL 8.6-10.6 4519352544) T PROTEIN (test code 7.8 g/dL 6.3-8.2 = 2317277574) ALBUMIN (test code = 5.0 g/dL 3.5-5.0 6972749471) ALK PHOS (test code = 84 U/L 34-122 8983170352) ALTv (test code = 14 U/L 5-35 1742-6) AST(SGOT) (test code 23 U/L 13-40 = 7665070646) eGFR (test code = mL/min/1.73m2 4062460241) [place] (test code = [place]) Association of [...] or urine or abnormalities in imaging tests). [facility] WITH [id number] 19:29:29 Test Item Value Reference Range Interpretation Comments WBC (test code = See_Comment [Automated 0190-2) message] The sy stem which generated this result transmitted reference range : 4.30 - 11.10 10*3/?L. The reference range was not used to interpret this result as normal/abnormal . RBC (test code = See_Comment [Automated 159-8) message] The sy stem which generated this [...] RDW-SD (test code = 42.0 fL 39.0-49.9 90821-6) RDW-CV (test code = 12.1 % 12.0-15.5 788-0) PLT (test code = See_Comment [Automated 847-3) message] The sy stem which generated this result transmitted reference range : 166 - 358 10*3/ ?L. The reference r vicente was not used to interpret this result as normal/abnormal . MPV (test code = 10.0 fL 9.5-12.9 57356-0) NRBC/100 WBC (test See_Comment [Automat ed code = 5859805922) message] The system which generated this result transmitted reference range : 0.0 - 10.0 /100 WBCs. The refer ence range was not u sed to interpret th is result as normal/abnormal . NRBC x10^3 (test code <0.01 See_Comment [Auto mated = 6028175297) message] The s ystem which generated this result transmitted reference range : 10*3/?L. The reference range was not used to interpret this result as normal/abnormal . GRAN MAT (NEUT) % 65.5 % (test code = 770-8) IMM GRAN % (test code 0.40 % = 3210364892) LYMPH % (test code = 20.6 % 736-9) MONO % (test code = 10.5 % 5905-5) EOS % (test code = 2.1 % 713-8) BASO % (test code = 0.9 % 706-2) GRAN MAT x10^3(ANC) 5.61 10*3/uL 1.88-7.09 (test code = 9420001728) IMM GRAN x10^3 (test 0.03 10*3/uL 0.00-0.06 code = 6264834802) LYMPH x10^3 (test code 1.76 10*3/uL 1.32-3.29 = 731-0) MONO x10^3 (test code 0.90 10*3/uL 0.33-0.92 = 742-7) EOS x10^3 (test code = 0.18 10*3/uL 0.03-0.39 711-2) BASO x10^3 (test code 0.08 10*3/uL 0.01-0.07 H = 704-7) Lab Interpretation Abnormal (test code = 70436-7) [id number] 18:47:00 Test Item Value Reference Range Interpretation Comments POCT PREG (test code = 1605) Negative On board controls acceptable with Present C Line (test code = 3574) POCT PREG LOT # (test code = 3575) [id number] POCT PREG TEST DATE (test 02-24-2023 code = 3576) Lab Interpretation (test code = Normal 10494-1) [facility] [id number] 11:20:57 Test Item Value Reference Interpretation Comments [...] abnormal code = 8205) Pap (accession # [id number]) isreviewed. The atypical cells identified on t [...] TI SSUE PIECES: multipleSUBMITT ED IN CASSETTE(S): [id number]: FormalinCOMMENT S:Entirely submitted intac t. C) SPECIMEN [...] S:Entirely submitted intac t. PATHOLOGIST: (NOTE) Charisma Ríos nkenship Specimens (test code = processed at inical Pathology 8250) Laboratories, [address] [place], [place] [address], , CLIA: [id number] interpreted at [facility], [address] [place], [place] [address], , CLIA: [id number] DISCLAIMER (test (NOTE) IHC antibod ies are interpreted in code = 75867) the presence o f appropriatelyfu nctioning controls unless otherwis e noted. CPT: (test code (NOTE) 71004m8, 883 05x5 UNLESS OTHERWISE = 8400) INDICATED, ALL TESTING PERFORMED [facility], [place] [address] 4 ORE FEEDER: TERRI MCCRARY M.D. CLIA NUMBER [id number] CAP ACCREDITATION N O. [id number] SURGICAL PATHOLOGY [id number] 00:00:00 Test Item Value Reference Range Interpretation Comments DIAGNOSIS: (test code = 8200) (NOTE) COMMENTS: (test code = 8205) (NOTE) MICROSCOPIC DESCRIPTION: (test code = (NOTE) 8210) CLINICAL DATA: (test code = 8401) (NOTE) GROSS DESCRIPTION: (test code = 8220) (NOTE) PATHOLOGIST: (test code = 8250) (NOTE) DISCLAIMER (test code = 45500) (NOTE) CPT: (test code = 8400) (NOTE) SURGICAL PATHOLOGY [id number] 00:00:00 Test Item Value Reference Range Interpretation Comments DIAGNOSIS: (test code = 8200) (NOTE) COMMENTS: (test code = 8205) (NOTE) MICROSCOPIC DESCRIPTION: (test code = (NOTE) 8210) CLINICAL DATA: (test code = 8401) (NOTE) GROSS DESCRIPTION: (test code = 8220) (NOTE) PATHOLOGIST: (test code = 8250) (NOTE) DISCLAIMER (test code = 09581) (NOTE) CPT: (test code = 8400) (NOTE) SURGICAL PATHOLOGY [id number] 00:00:00 Test Item Value Reference Range Interpretation Comments DIAGNOSIS: (test code = 8200) (NOTE) COMMENTS: (test code = 8205) (NOTE) MICROSCOPIC DESCRIPTION: (test code = (NOTE) 8210) CLINICAL DATA: (test code = 8401) (NOTE) GROSS DESCRIPTION: (test code = 8220) (NOTE) PATHOLOGIST: (test code = 8250) (NOTE) DISCLAIMER (test code = 51620) (NOTE) CPT: (test code = 8400) (NOTE) SURGICAL PATHOLOGY [id number] 00:00:00 Test Item Value Reference Range Interpretation Comments DIAGNOSIS: (test code = 8200) (NOTE) COMMENTS: (test code = 8205) (NOTE) MICROSCOPIC DESCRIPTION: (test code = (NOTE) 8210) CLINICAL DATA: (test code = 8401) (NOTE) GROSS DESCRIPTION: (test code = 8220) (NOTE) PATHOLOGIST: (test code = 8250) (NOTE) DISCLAIMER (test code = 59269) (NOTE) CPT: (test code = 8400) (NOTE) SURGICAL PATHOLOGY [id number] 00:00:00 Test Item Value Reference Range Interpretation Comments DIAGNOSIS: (test code = 8200) (NOTE) COMMENTS: (test code = 8205) (NOTE) MICROSCOPIC DESCRIPTION: (test code = (NOTE) 8210) CLINICAL DATA: (test code = 8401) (NOTE) GROSS DESCRIPTION: (test code = 8220) (NOTE) PATHOLOGIST: (test code = 8250) (NOTE) DISCLAIMER (test code = 17043) (NOTE) CPT: (test code = 8400) (NOTE) PAP TEST, THINPREP, [id number] 11:12:17 Test Item Value Reference Range Interpretation Comments SOURCE: (test code = Cervical/Endo 8001) cervical SLIDES: (test code = 1 8011) LMP: (test code = 08/05/2021 8021) SPECIMEN ADEQUACY: (NOTE) Satisfac tory for (test code = 56187) evaluati on. Endocervical cells/transform ation zone component present. INTERPRETATION: ASCUS/EPITH. A (test code = 17911) ABNORMALITY; -------- SEE BELOW ------- ---- EPITHE LIAL CELL ABNORMALIT Y Atypical squamo us cells of undete rmined significance (ASC-US)------- ------- ------- ------- OTHER COMMENTS: (NOTE) Possible richelle nges of (test code = 8081) Herpes vi eddie present. Recommend PCR orculture for confirmation. P CR may be performed on this samplewithin 21 days of collection. Please contact [facility] [phone]. TRAFFIC RATE COMPUTER: Miguelina Ndiaye (test code = 8101) HAYLIE Phillips(ASC P) PATHOLOGIST Dylan Holland INTERPRETATION BY: (test code = 8122) LOCATION: (test code (NOTE) Specime ns processed at = 87852) Clinical Pathol [facility], [address] [facility] [place] [address], Phone: , CLIA: [id number] interpreted at [facility], [address] [place] [address], , CLIA: [id number] CPT: (test code = (NOTE) 55264, 881 41 UNLESS 8140) OTHERWISE INDIC ATED, [...] consolidated pr ior Pap history is avai labroberto as applicable. PAP TEST, THINPREP, [id number] 00:00:00 Test Item Value Reference Range Interpretation Comments SOURCE: (test code = 8001) Cervical/Endocervic al SLIDES: (test code = 8011) 1 LMP: (test code = 8021) 08/05/2021 SPECIMEN ADEQUACY: (test (NOTE) code = 97453) INTERPRETATION: (test code ASCUS/EPITH. = 64704) ABNORMALITY; SEE BELOW OTHER COMMENTS: (test code (NOTE) = 8081) TRAFFIC RATE COMPUTER: (test Miguelina Ndiaye code = 8101) HAYLIE Phillips(ASCP) PATHOLOGIST INTERPRETATION Dylan Holland BY: (test code = 8122) LOCATION: (test code = (NOTE) 58124) CPT: (test code = 8140) (NOTE) PAP TEST, THINPREP, [id number] 00:00:00 Test Item Value Reference Range Interpretation Comments SOURCE: (test code = 8001) Cervical/Endocervic al SLIDES: (test code = 8011) 1 LMP: (test code = 8021) 08/05/2021 SPECIMEN ADEQUACY: (test (NOTE) code = 77330) INTERPRETATION: (test code ASCUS/EPITH. = 35169) ABNORMALITY; SEE BELOW OTHER COMMENTS: (test code (NOTE) = 8081) TRAFFIC RATE COMPUTER: (test Miguelina S. code = 8101) HAYLIE Phillips(ASCP) PATHOLOGIST INTERPRETATION Dylan Holland BY: (test code = 8122) LOCATION: (test code = (NOTE) 32111) CPT: (test code = 8140) (NOTE) PAP TEST, THINPREP, [id number] 00:00:00 Test Item Value Reference Range Interpretation Comments SOURCE: (test code = 8001) Cervical/Endocervic al SLIDES: (test code = 8011) 1 LMP: (test code = 8021) 08/05/2021 SPECIMEN ADEQUACY: (test (NOTE) code = 45894) INTERPRETATION: (test code ASCUS/EPITH. = 26938) ABNORMALITY; SEE BELOW OTHER COMMENTS: (test code (NOTE) = 8081) TRAFFIC RATE COMPUTER: (test Miguelina S. code = 8101) HAYLIE Phillips(ASCP) PATHOLOGIST INTERPRETATION Dylan Holland BY: (test code = 8122) LOCATION: (test code = (NOTE) 29071) CPT: (test code = 8140) (NOTE) PAP TEST, THINPREP, [id number] 00:00:00 Test Item Value Reference Range Interpretation Comments SOURCE: (test code = 8001) Cervical/Endocervic al SLIDES: (test code = 8011) 1 LMP: (test code = 8021) 08/05/2021 SPECIMEN ADEQUACY: (test (NOTE) code = 11848) INTERPRETATION: (test code ASCUS/EPITH. = 09452) ABNORMALITY; SEE BELOW OTHER COMMENTS: (test code (NOTE) = 8081) TRAFFIC RATE COMPUTER: (test Miguelina S. code = 8101) HAYLIE Phillips(ASCP) PATHOLOGIST INTERPRETATION Dylan Holland BY: (test code = 8122) LOCATION: (test code = (NOTE) 59819) CPT: (test code = 8140) (NOTE) PAP TEST, THINPREP, [id number] 00:00:00 Test Item Value Reference Range Interpretation Comments SOURCE: (test code = 8001) Cervical/Endocervic al SLIDES: (test code = 8011) 1 LMP: (test code = 8021) 08/05/2021 SPECIMEN ADEQUACY: (test (NOTE) code = 01077) INTERPRETATION: (test code ASCUS/EPITH. = 28241) ABNORMALITY; SEE BELOW OTHER COMMENTS: (test code (NOTE) = 8081) TRAFFIC RATE COMPUTER: (test Miguelina S. code = 8101) HAYLIE Phillips(ASCP) PATHOLOGIST INTERPRETATION Dylan Holland BY: (test code = 8122) LOCATION: (test code = (NOTE) 36010) CPT: (test code = 8140) (NOTE) CT/NG, TMA, [id number] 19:19:14 Test Item Value Reference Range Interpretation Comments GONORRHEA, TMA NEGATIVE NEGATIVE Assay method ology is (test code = nucleic acid am plification 43906) by transcriptio n mediated amplification ( TMA) utilizing the A ptima Combo 2 Assay. CHLAMYDIA, TMA NEGATIVE NEGATIVE Assay method ology is (test code = nucleic acid am plification 21899) by transcriptio n mediated amplification ( TMA) utilizing the A ptima Combo 2 Assay. HPV HIGH RISK WITH GENOTYPE, [id number] 16:29:18 Test Item Value Reference Range Interpretation Comments HPV HIGH RISK INTERP POSITIVE NEGATIVE A (test code = 47416) HPV 16 (test code = NEGATIVE 18917) HPV 18 (test code = NEGATIVE 69525) HPV, HR, OTHER POSITIVE A Testing meth odology is GENOTYPES (test code real-ti me PCR utilizing = 85622) hydrolysis prob es with the CleanTieas 4800 system. The kezia t individually de [...] OTHERWISE INDIC ATED, ALL TESTING PERFORM ED [facility], [facility]. [address] [place] [id number] LAB[address] DIRE CTOR: TERRI GARDNER M.D. CLIA NUMBER [id number] CAP ACCREDITATI ON NO. VAGINAL PATHOGENS DNA [id number] 14:49:20 Test Item Value Reference Range Interpretation Comments DWIGHT SPECIES (test NEGATIVE NEGATIVE code = ) G. VAGINALIS (test POSITIVE NEGATIVE A code = ) T. VAGINALIS (test NEGATIVE NEGATIVE UNLESS O THERWISE code = ) INDICATED, ALL TESTING PERFORMED [facility], [address] [address] LABORATORY DIRE CTOR: TERRI GARDNER M.D. CLIA NUMBER [id number] CAP ACCREDITATI ON NO. HIV 1/2 4TH GEN, RFLX [id number] 05:59:23 Test Item Value Reference Range Interpretation Comments HIV 1/2 4TH GEN, RFLX CONF (test NON-REACTIVE NON-REACTIVE code = 3514) HEPATITIS PANEL, [id number] 05:59:23 Test Item Value Reference Range Interpretation Comments HEPATITIS A IgM (test NON-REACTIVE NON-REACTIVE code = 92799) HEPATITIS B CORE IgM NON-REACTIVE NON-REACTIVE (test code = 4644) HEPATITIS B SURF AG NON-REACTIVE NON-REACTIVE (test code = 2739) HEPATITIS C ANTIBODY NON-REACTIVE NON-REACTIVE (test code = 4675) INTERPRETATION (NOTE) Hepatitis A HEPATITIS A: (test code sero logy shows no = 2552) evidence of acu te hepatitis A. INTERPRETATION (NOTE) Hepatitis B HEPATITIS B: (test code sero logy shows no = 22233) evidence of acu te hepatitis B and no indication of exposure to hepatitis B vir us in the previous kiko eight months. INTERPRETATION (NOTE) Hepatitis C HEPATITIS C: (test code sero logy shows no = 02914) evidence of exposure to hepatitisC viru s at this time. I t can take up to 12 months after exposure tothe hepatitis C vir us for antibodies to become detectab le in the blood in certain patient s. [id number] 05:28:14 Test Item Value Reference Range Interpretation Comments RPR RESULT (test code = NON-REACTIVE NON-REACTIVE 3501) RPR TITER (test code = 3500) NOT INDIC. TITER NOT INDIC. HIV AB/AG COMBO RFLX [id number] 00:00:00 Test Item Value Reference Range Interpretation Comments HIV 1/2 4TH GEN, RFLX CONF (test NON-REACTIVE code = 3514) GC AND CHLAMYDIA AMPLIFIED, [id number] 00:00:00 Test Item Value Reference Range Interpretation Comments GONORRHEA, TMA (test code = 58145) NEGATIVE CHLAMYDIA, TMA (test code = 25949) NEGATIVE ACUTE HEPATITIS [id number] 00:00:00 Test Item Value Reference Range Interpretation Comments HEPATITIS A IgM (test code = NON-REACTIVE 01566) HEPATITIS B CORE IgM (test code NON-REACTIVE = 4644) HEPATITIS B SURF AG (test code = NON-REACTIVE 0699) HEPATITIS C ANTIBODY (test code NON-REACTIVE = 4675) INTERPRETATION HEPATITIS A: (NOTE) (test code = 2552) INTERPRETATION HEPATITIS B: (NOTE) (test code = 23327) INTERPRETATION HEPATITIS C: (NOTE) (test code = 13964) HPV HIGH RISK WITH GENOTYPE, [id number] 00:00:00 Test Item Value Reference Range Interpretation Comments HPV HIGH RISK INTERP (test code = POSITIVE 76432) HPV 16 (test code = 20455) NEGATIVE HPV 18 (test code = 66856) NEGATIVE HPV, HR, OTHER GENOTYPES (test code POSITIVE = 44755) [id number] 00:00:00 Test Item Value Reference Range Interpretation Comments RPR RESULT (test code = NON-REACTIVE 3501) RPR TITER (test code = 3500) NOT INDIC. TITER [id number] 00:00:00 Test Item Value Reference Range Interpretation Comments RPR RESULT (test code = NON-REACTIVE 3501) RPR TITER (test code = 3500) NOT INDIC. TITER VAGINAL PATHOGENS DNA PANEL [ADDED]2021-08-16 00:00:00 Test Item Value Reference Range Interpretation Comments DWIGHT SPECIES (test code = ) NEGATIVE G. VAGINALIS (test code = ) POSITIVE T. VAGINALIS (test code = 46012) NEGATIVE HIV AB/AG COMBO RFLX [id number] 00:00:00 Test Item Value Reference Range Interpretation Comments HIV 1/2 4TH GEN, RFLX CONF (test NON-REACTIVE code = 3514) GC AND CHLAMYDIA AMPLIFIED, [id number] 00:00:00 Test Item Value Reference Range Interpretation Comments GONORRHEA, TMA (test code = 28103) NEGATIVE CHLAMYDIA, TMA (test code = 32310) NEGATIVE GC AND CHLAMYDIA AMPLIFIED, [id number] 00:00:00 Test Item Value Reference Range Interpretation Comments GONORRHEA, TMA (test code = 05818) NEGATIVE CHLAMYDIA, TMA (test code = 17916) NEGATIVE HIV AB/AG COMBO RFLX [id number] 00:00:00 Test Item Value Reference Range Interpretation Comments HIV 1/2 4TH GEN, RFLX CONF (test NON-REACTIVE code = 3514) ACUTE HEPATITIS [id number] 00:00:00 Test Item Value Reference Range Interpretation Comments HEPATITIS A IgM (test code = NON-REACTIVE 25973) HEPATITIS B CORE IgM (test code NON-REACTIVE = 4644) HEPATITIS B SURF AG (test code = NON-REACTIVE 2739) HEPATITIS C ANTIBODY (test code NON-REACTIVE = 4675) INTERPRETATION HEPATITIS A: (NOTE) (test code = 2552) INTERPRETATION HEPATITIS B: (NOTE) (test code = 74523) INTERPRETATION HEPATITIS C: (NOTE) (test code = 33507) ACUTE HEPATITIS [id number] 00:00:00 Test Item Value Reference Range Interpretation Comments HEPATITIS A IgM (test code = NON-REACTIVE 24813) HEPATITIS B CORE IgM (test code NON-REACTIVE = 4644) HEPATITIS B SURF AG (test code = NON-REACTIVE 2739) HEPATITIS C ANTIBODY (test code NON-REACTIVE = 4675) INTERPRETATION HEPATITIS A: (NOTE) (test code = 2552) INTERPRETATION HEPATITIS B: (NOTE) (test code = 27524) INTERPRETATION HEPATITIS C: (NOTE) (test code = 61850) [id number] 00:00:00 Test Item Value Reference Range Interpretation Comments RPR RESULT (test code = NON-REACTIVE 3501) RPR TITER (test code = 3500) NOT INDIC. TITER HPV HIGH RISK WITH GENOTYPE, [id number] 00:00:00 Test Item Value Reference Range Interpretation Comments HPV HIGH RISK INTERP (test code = POSITIVE 25946) HPV 16 (test code = 07276) NEGATIVE HPV 18 (test code = 15491) NEGATIVE HPV, HR, OTHER GENOTYPES (test code POSITIVE = 15302) HPV HIGH RISK WITH GENOTYPE, [id number] 00:00:00 Test Item Value Reference Range Interpretation Comments HPV HIGH RISK INTERP (test code = POSITIVE 31687) HPV 16 (test code = 12963) NEGATIVE HPV 18 (test code = 23778) NEGATIVE HPV, HR, OTHER GENOTYPES (test code POSITIVE = 74364) [id number] 00:00:00 Test Item Value Reference Range Interpretation Comments RPR RESULT (test code = NON-REACTIVE 3501) RPR TITER (test code = 3500) NOT INDIC. TITER [id number] 00:00:00 Test Item Value Reference Range Interpretation Comments RPR RESULT (test code = NON-REACTIVE 3501) RPR TITER (test code = 3500) NOT INDIC. TITER VAGINAL PATHOGENS DNA PANEL [ADDED]2021-08-16 00:00:00 Test Item Value Reference Range Interpretation Comments DWIGHT SPECIES (test code = ) NEGATIVE G. VAGINALIS (test code = 14289) POSITIVE T. VAGINALIS (test code = 87124) NEGATIVE VAGINAL PATHOGENS DNA PANEL [ADDED]2021-08-16 00:00:00 Test Item Value Reference Range Interpretation Comments DWIGHT SPECIES (test code = ) NEGATIVE G. VAGINALIS (test code = 98878) POSITIVE T. VAGINALIS (test code = 76206) NEGATIVE HIV AB/AG COMBO RFLX [id number] 00:00:00 Test Item Value Reference Range Interpretation Comments HIV 1/2 4TH GEN, RFLX CONF (test NON-REACTIVE code = 3514) HIV AB/AG COMBO RFLX [id number] 00:00:00 Test Item Value Reference Range Interpretation Comments HIV 1/2 4TH GEN, RFLX CONF (test NON-REACTIVE code = 3514) GC AND CHLAMYDIA AMPLIFIED, [id number] 00:00:00 Test Item Value Reference Range Interpretation Comments GONORRHEA, TMA (test code = 05276) NEGATIVE CHLAMYDIA, TMA (test code = 48953) NEGATIVE GC AND CHLAMYDIA AMPLIFIED, [id number] 00:00:00 Test Item Value Reference Range Interpretation Comments GONORRHEA, TMA (test code = 02589) NEGATIVE CHLAMYDIA, TMA (test code = 61254) NEGATIVE ACUTE HEPATITIS [id number] 00:00:00 Test Item Value Reference Range Interpretation Comments HEPATITIS A IgM (test code = NON-REACTIVE 10979) HEPATITIS B CORE IgM (test code NON-REACTIVE = 4644) HEPATITIS B SURF AG (test code = NON-REACTIVE 2739) HEPATITIS C ANTIBODY (test code NON-REACTIVE = 4675) INTERPRETATION HEPATITIS A: (NOTE) (test code = 2552) INTERPRETATION HEPATITIS B: (NOTE) (test code = 97170) INTERPRETATION HEPATITIS C: (NOTE) (test code = 41558) ACUTE HEPATITIS [id number] 00:00:00 Test Item Value Reference Range Interpretation Comments HEPATITIS A IgM (test code = NON-REACTIVE 99805) HEPATITIS B CORE IgM (test code NON-REACTIVE = 4644) HEPATITIS B SURF AG (test code = NON-REACTIVE 2739) HEPATITIS C ANTIBODY (test code NON-REACTIVE = 4675) INTERPRETATION HEPATITIS A: (NOTE) (test code = 2552) INTERPRETATION HEPATITIS B: (NOTE) (test code = 31693) INTERPRETATION HEPATITIS C: (NOTE) (test code = 32898) [id number] 00:00:00 Test Item Value Reference Range Interpretation Comments RPR RESULT (test code = NON-REACTIVE 3501) RPR TITER (test code = 3500) NOT INDIC. TITER [id number] 00:00:00 Test Item Value Reference Range Interpretation Comments RPR RESULT (test code = NON-REACTIVE 3501) RPR TITER (test code = 3500) NOT INDIC. TITER HPV HIGH RISK WITH GENOTYPE, [id number] 00:00:00 Test Item Value Reference Range Interpretation Comments HPV HIGH RISK INTERP (test code = POSITIVE 10989) HPV 16 (test code = 26513) NEGATIVE HPV 18 (test code = 40602) NEGATIVE HPV, HR, OTHER GENOTYPES (test code POSITIVE = 71640) HPV HIGH RISK WITH GENOTYPE, [id number] 00:00:00 Test Item Value Reference Range Interpretation Comments HPV HIGH RISK INTERP (test code = POSITIVE 11897) HPV 16 (test code = 70940) NEGATIVE HPV 18 (test code = 33341) NEGATIVE HPV, HR, OTHER GENOTYPES (test code POSITIVE = 33805) [id number] 00:00:00 Test Item Value Reference Range Interpretation [...] T. VAGINALIS (test code = ) NEGATIVE CBC W/AUTO DIFF WITH [id number] 12:09:41 Test Item Value Reference Range Interpretation [...] RBCS 0.00 K/UL 0.00-0.11 (test code = 16097) TSH, THIRD [id number] 06:48:11 Test Item Value Reference Range Interpretation Comments TSH, THIRD 1.130 UIU/ML 0.400-4.100 UNLESS OTHERWI SE GENERATION (test INDICATED, ALL TESTING code = 2821) PERFORMED [facility], [id number] [place] [address] DIRECTOR: TERRI MCCRARY M.D. CLIA NUMBER [id number] CAP ACCREDITATION N O. [id number] LIPID [id number] 06:12:16 Test Item Value Reference Range Interpretation [...] MOREINFORMATION , SEE CLIENT ANNOUNCE MENT AT [email or web address] RISK RATIO LDL/HDL 2.13 RATIO <3.22 (test code = 2238) COMPREHENSIVE METABOLIC [id number] 06:12:16 Test Item Value Reference Range Interpretation Comments GLUCOSE (test code = 89 MG/DL 70-99 2217) BUN (test code = 12 MG/DL 6-20 2207) CREATININE (test 0.52 MG/DL 0.60-1.30 L code = 2213) eGFR (2020 CKD-EPI) 127 >60 (test code = 18421) ML/MIN/1.73 CALC BUN/CREAT (test 23 RATIO 6-28 code = 223) SODIUM (test code = 138 MEQ/L 796-101 6761) POTASSIUM (test code 4.0 MEQ/L 3.5-5.4 = [...] RATIO (test 1.9 RATIO 1.0-2.6 code = 2233) BILIRUBIN, TOTAL 0.6 MG/DL See_Comment [Automated message] (test code = 2206) The syste m which generated this result transmit damon reference range : <=1.2. The refe rence range was not u sed to interpret th is result as normal/abnormal . ALKALINE PHOSPHATASE 99 U/L 40-114 (test code = 2203) AST (test code = 17 U/L 9-40 2217) ALT (test code = 12 U/L 5-40 2218) CBC W/AUTO [id number] 00:00:00 Test Item Value Reference Range Interpretation [...] NUCLEATED RBCS (test code = 0.00 K/UL 32652) CBC W/AUTO [id number] 00:00:00 Test Item Value Reference Range Interpretation [...] NUCLEATED RBCS (test code = 0.00 K/UL 48795) LIPID [id number] 00:00:00 Test Item Value Reference Range Interpretation Comments CHOLESTEROL (test code = 2210) 192 MG/DL TRIGLYCERIDES (test code = 2232) 78 MG/DL HDL CHOLESTEROL (test code = 2220) 56 MG/DL CALC LDL CHOL (test code = 2237) 119 MG/DL RISK RATIO LDL/HDL (test code = 2.13 RATIO 2238) COMPREHENSIVE METABOLIC [id number] 00:00:00 Test Item Value Reference Range Interpretation Comments GLUCOSE (test code = 2217) 89 MG/DL BUN (test code = 2208) 12 MG/DL CREATININE (test code = 2214) 0.52 MG/DL eGFR (2020 CKD-EPI) (test 127 ML/MIN/1.73 code = 53355) CALC BUN/CREAT (test code = 23 RATIO [...] ALT (test code = 2219) 12 U/L [id number] 00:00:00 Test Item Value Reference Range Interpretation Comments TSH, THIRD GENERATION (test code 1.130 UIU/ML = 2821) [id number] 00:00:00 Test Item Value Reference Range Interpretation Comments TSH, THIRD GENERATION (test code 1.130 UIU/ML = 2821) CBC W/AUTO [id number] 00:00:00 Test Item Value Reference Range Interpretation [...] NUCLEATED RBCS (test code = 0.00 K/UL 43396) CBC W/AUTO [id number] 00:00:00 Test Item Value Reference Range Interpretation [...] NUCLEATED RBCS (test code = 0.00 K/UL 02962) CBC W/AUTO [id number] 00:00:00 Test Item Value Reference Range Interpretation [...] NUCLEATED RBCS (test code = 0.00 K/UL 73229) LIPID [id number] 00:00:00 Test Item Value Reference Range Interpretation Comments CHOLESTEROL (test code = 2210) 192 MG/DL TRIGLYCERIDES (test code = 2232) 78 MG/DL HDL CHOLESTEROL (test code = 2220) 56 MG/DL CALC LDL CHOL (test code = 2237) 119 MG/DL RISK RATIO LDL/HDL (test code = 2.13 RATIO 2238) LIPID [id number] 00:00:00 Test Item Value Reference Range Interpretation Comments CHOLESTEROL (test code = 2210) 192 MG/DL TRIGLYCERIDES (test code = 2232) 78 MG/DL HDL CHOLESTEROL (test code = 2220) 56 MG/DL CALC LDL CHOL (test code = 2237) 119 MG/DL RISK RATIO LDL/HDL (test code = 2.13 RATIO 2238) COMPREHENSIVE METABOLIC [id number] 00:00:00 Test Item Value Reference Range Interpretation Comments GLUCOSE (test code = 2217) 89 MG/DL BUN (test code = 2208) 12 MG/DL CREATININE (test code = 2214) 0.52 MG/DL eGFR (2020 CKD-EPI) (test 127 ML/MIN/1.73 code = 00177) CALC BUN/CREAT (test code = 23 RATIO 2235) SODIUM (test code = 2231) 138 MEQ/L POTASSIUM (test code = 2228) 4.0 MEQ/L CHLORIDE (test code = 2215) 103 MEQ/L CARBON DIOXIDE (test code = 22 MEQ/L 6) CALCIUM (test code = 2209) 9.6 MG/DL [...] code = 2219) 12 U/L COMPREHENSIVE METABOLIC [id number] 00:00:00 Test Item Value Reference Range Interpretation Comments GLUCOSE (test code = 2217) 89 MG/DL BUN (test code = 2208) 12 MG/DL CREATININE (test code = 2214) 0.52 MG/DL eGFR (2020 CKD-EPI) (test 127 ML/MIN/1.73 code = 35541) CALC BUN/CREAT (test code = 23 RATIO 2234) SODIUM (test code = 2231) 138 MEQ/L [...] A/G RATIO (test code = 1.9 RATIO 2233) BILIRUBIN, TOTAL (test code = 0.6 MG/DL 2206) ALKALINE PHOSPHATASE (test 99 U/L code = 220) AST (test code = 2218) 17 U/L ALT (test code = 2219) 12 U/L [id number] 00:00:00 Test Item Value Reference Range Interpretation Comments TSH, THIRD GENERATION (test code 1.130 UIU/ML = 2821) [id number] 00:00:00 Test Item Value Reference Range Interpretation Comments TSH, THIRD GENERATION (test code 1.130 UIU/ML = 2821) [id number] 00:00:00 Test Item Value Reference Range Interpretation Comments TSH, THIRD GENERATION (test code 1.130 UIU/ML = 2821) CBC W/AUTO [id number] 00:00:00 Test Item Value Reference Range Interpretation [...] NUCLEATED RBCS (test code = 0.00 K/UL 03282) CBC W/AUTO [id number] 00:00:00 Test Item Value Reference Range Interpretation [...] NUCLEATED RBCS (test code = 0.00 K/UL 33631) CBC W/AUTO [id number] 00:00:00 Test Item Value Reference Range Interpretation [...] NUCLEATED RBCS (test code = 0.00 K/UL 31776) LIPID [id number] 00:00:00 Test Item Value Reference Range Interpretation Comments CHOLESTEROL (test code = 2210) 192 MG/DL TRIGLYCERIDES (test code = 2232) 78 MG/DL HDL CHOLESTEROL (test code = 2220) 56 MG/DL CALC LDL CHOL (test code = 2237) 119 MG/DL RISK RATIO LDL/HDL (test code = 2.13 RATIO 2238) LIPID [id number] 00:00:00 Test Item Value Reference Range Interpretation Comments CHOLESTEROL (test code = 2210) 192 MG/DL TRIGLYCERIDES (test code = 2232) 78 MG/DL HDL CHOLESTEROL (test code = 2220) 56 MG/DL CALC LDL CHOL (test code = 2237) 119 MG/DL RISK RATIO LDL/HDL (test code = 2.13 RATIO 2238) COMPREHENSIVE METABOLIC [id number] 00:00:00 Test Item Value Reference Range Interpretation Comments GLUCOSE (test code = 2217) 89 MG/DL BUN (test code = 2208) 12 MG/DL CREATININE (test code = 2214) 0.52 MG/DL eGFR (2020 CKD-EPI) (test 127 ML/MIN/1.73 code = 28808) CALC BUN/CREAT (test code = 23 RATIO [...] code = 2219) 12 U/L COMPREHENSIVE METABOLIC [id number] 00:00:00 Test Item Value Reference Range Interpretation Comments GLUCOSE (test code = 2217) 89 MG/DL BUN (test code = 2208) 12 MG/DL CREATININE (test code = 2214) 0.52 MG/DL eGFR (2020 CKD-EPI) (test 127 ML/MIN/1.73 code = 39389) CALC BUN/CREAT (test code = 23 RATIO [...] ALT (test code = 2219) 12 U/L [id number] 00:00:00 Test Item Value Reference Range Interpretation Comments TSH, THIRD GENERATION (test code 1.130 UIU/ML = 2821) [id number] 00:00:00 Test Item Value Reference Range Interpretation Comments TSH, THIRD GENERATION (test code 1.130 UIU/ML = 2821) [id number] 00:00:00 Test Item Value Reference Range Interpretation Comments TSH, THIRD GENERATION (test code 1.130 UIU/ML = 2821) SARS-CoV-2 (COVID-19) by RT-PCR (HIGH RISK)2021-02-01 00:00:00 Test Item Value Reference Range Interpretation Comments SARS-CoV-2 INTERPRETATION (test NEGATIVE code = 99921) SOURCE (test code = 70005) NOT SPECIFIED SARS-CoV-2 (COVID-19) by RT-PCR (HIGH RISK)2021-02-01 00:00:00 Test Item Value Reference Range Interpretation Comments SARS-CoV-2 INTERPRETATION (test NEGATIVE code = 94526) SOURCE (test code = 81928) NOT SPECIFIED SARS-CoV-2 (COVID-19) by RT-PCR (HIGH RISK)2021-02-01 00:00:00 Test Item Value Reference Range Interpretation Comments SARS-CoV-2 INTERPRETATION (test NEGATIVE code = 77509) SOURCE (test code = 87536) NOT SPECIFIED SARS-CoV-2 (COVID-19) by RT-PCR (HIGH RISK)2021-02-01 00:00:00 Test Item Value Reference Range Interpretation Comments SARS-CoV-2 INTERPRETATION (test NEGATIVE code = 17205) SOURCE (test code = 87391) NOT SPECIFIED SARS-CoV-2 (COVID-19) by RT-PCR (HIGH RISK)2021-02-01 00:00:00 Test Item Value Reference Range Interpretation Comments SARS-CoV-2 INTERPRETATION (test NEGATIVE code = 99260) SOURCE (test code = 17642) NOT SPECIFIED CBC W/AUTO [id number] 00:00:00 Test Item Value Reference Range Interpretation [...] code = 1015) 280 K/UL CBC W/AUTO [id number] 00:00:00 Test Item Value Reference Range Interpretation [...] code = 1015) 280 K/UL COMPREHENSIVE METABOLIC [id number] 00:00:00 Test Item Value Reference Range Interpretation Comments GLUCOSE (test code = 2217) 112 MG/DL BUN (test code = 2208) 14 MG/DL CREATININE (test code = 2214) 0.90 MG/DL eGFR AMER. (test code 99 ML/MIN/1.73 = 66678) eGFR NON- AMER. (test 85 ML/MIN/1.73 code = 63693) CALC BUN/CREAT (test code = 16 RATIO [...] ALT (test code = 2219) 22 U/L [id number] 00:00:00 Test Item Value Reference Range Interpretation Comments TSH, THIRD GENERATION (test code 1.640 UIU/ML = 2821) [id number] 00:00:00 Test Item Value Reference Range Interpretation Comments TSH, THIRD GENERATION (test code 1.640 UIU/ML = 2821) TRICHOMONAS, URINE, [id number] 00:00:00 Test Item Value Reference Range Interpretation Comments TRICHOMONAS, NAAT (test code = NEGATIVE 23821) CBC W/AUTO [id number] 00:00:00 Test Item Value Reference Range Interpretation [...] code = 1015) 280 K/UL CBC W/AUTO [id number] 00:00:00 Test Item Value Reference Range Interpretation [...] code = 1015) 280 K/UL CBC W/AUTO [id number] 00:00:00 Test Item Value Reference Range Interpretation [...] code = 1015) 280 K/UL COMPREHENSIVE METABOLIC [id number] 00:00:00 Test Item Value Reference Range Interpretation Comments GLUCOSE (test code = 2217) 112 MG/DL BUN (test code = 2208) 14 MG/DL CREATININE (test code = 2214) 0.90 MG/DL eGFR AMER. (test code 99 ML/MIN/1.73 = 54675) eGFR NON- AMER. (test 85 ML/MIN/1.73 code = 54535) CALC BUN/CREAT (test code = 16 RATIO [...] code = 2219) 22 U/L COMPREHENSIVE METABOLIC [id number] 00:00:00 Test Item Value Reference Range Interpretation Comments GLUCOSE (test code = 2217) 112 MG/DL BUN (test code = 2208) 14 MG/DL CREATININE (test code = 2214) 0.90 MG/DL eGFR AMER. (test code 99 ML/MIN/1.73 = 95761) eGFR NON- AMER. (test 85 ML/MIN/1.73 code = 28828) CALC BUN/CREAT (test code = 16 RATIO [...] ALT (test code = 2219) 22 U/L [id number] 00:00:00 Test Item Value Reference Range Interpretation Comments TSH, THIRD GENERATION (test code 1.640 UIU/ML = 2821) [id number] 00:00:00 Test Item Value Reference Range Interpretation Comments TSH, THIRD GENERATION (test code 1.640 UIU/ML = 2821) [id number] 00:00:00 Test Item Value Reference Range Interpretation Comments TSH, THIRD GENERATION (test code 1.640 UIU/ML = 2821) TRICHOMONAS, URINE, [id number] 00:00:00 Test Item Value Reference Range Interpretation Comments TRICHOMONAS, NAAT (test code = NEGATIVE 98075) TRICHOMONAS, URINE, [id number] 00:00:00 Test Item Value Reference Range Interpretation Comments TRICHOMONAS, NAAT (test code = NEGATIVE 34392) CBC W/AUTO [id number] 00:00:00 Test Item Value Reference Range Interpretation [...] code = 1015) 280 K/UL CBC W/AUTO [id number] 00:00:00 Test Item Value Reference Range Interpretation [...] code = 1015) 280 K/UL CBC W/AUTO [id number] 00:00:00 Test Item Value Reference Range Interpretation [...] code = 1015) 280 K/UL COMPREHENSIVE METABOLIC [id number] 00:00:00 Test Item Value Reference Range Interpretation Comments GLUCOSE (test code = 2217) 112 MG/DL BUN (test code = 2208) 14 MG/DL CREATININE (test code = 2214) 0.90 MG/DL eGFR AMER. (test code 99 ML/MIN/1.73 = 45656) eGFR NON- AMER. (test 85 ML/MIN/1.73 code = 72947) CALC BUN/CREAT (test code = 16 RATIO 2235) SODIUM (test code = 2231) 142 MEQ/L POTASSIUM (test code = 2228) 4.3 MEQ/L CHLORIDE (test code = 2215) 103 MEQ/L CARBON DIOXIDE (test code = 22 MEQ/L 220) CALCIUM (test code = 2209) 9.9 MG/DL [...] code = 2219) 22 U/L COMPREHENSIVE METABOLIC [id number] 00:00:00 Test Item Value Reference Range Interpretation Comments GLUCOSE (test code = 2217) 112 MG/DL BUN (test code = 2208) 14 MG/DL CREATININE (test code = 2214) 0.90 MG/DL eGFR AMER. (test code 99 ML/MIN/1.73 = 71505) eGFR NON- AMER. (test 85 ML/MIN/1.73 code = 53689) CALC BUN/CREAT (test code = 16 RATIO [...] ALT (test code = 2219) 22 U/L [id number] 00:00:00 Test Item Value Reference Range Interpretation Comments TSH, THIRD GENERATION (test code 1.640 UIU/ML = 2821) [id number] 00:00:00 Test Item Value Reference Range Interpretation Comments TSH, THIRD GENERATION (test code 1.640 UIU/ML = 2821) [id number] 00:00:00 Test Item Value Reference Range Interpretation Comments TSH, THIRD GENERATION (test code 1.640 UIU/ML = 2821) TRICHOMONAS, URINE, [id number] 00:00:00 Test Item Value Reference Range Interpretation Comments TRICHOMONAS, NAAT (test code = NEGATIVE 68019) TRICHOMONAS, URINE, [id number] 00:00:00 Test Item Value Reference Range Interpretation Comments TRICHOMONAS, NAAT (test code = NEGATIVE 23377) HCG, QUANTITATIVE [ADDED]2020-06-23 00:00:00 Test Item Value [...] Comments NOTE: (test code = 998) (NOTE) CULTURE, [id number] 00:00:00 Test Item Value Reference Range Interpretation Comments CULTURE, URINE (test SPECIMEN NUMBER: code = 68058) [id number] CULTURE, [id number] 00:00:00 Test Item Value Reference Range Interpretation Comments CULTURE, URINE (test SPECIMEN NUMBER: code = 77647) [id number] CULTURE, [id number] 00:00:00 Test Item Value Reference Range Interpretation Comments CULTURE, URINE (test SPECIMEN NUMBER: code = 56759) [id number] CULTURE, [id number] 00:00:00 Test Item Value Reference Range Interpretation Comments CULTURE, URINE (test SPECIMEN NUMBER: code = 12052) [id number] CULTURE, [id number] 00:00:00 Test Item Value Reference Range Interpretation Comments CULTURE, URINE (test SPECIMEN NUMBER: code = 12592) [id number] GC AND CHLAMYDIA, AMPLIFIED, [id number] 00:00:00 Test Item Value Reference Range Interpretation Comments GONORRHEA, NAAT (test code = 35911) NEGATIVE CHLAMYDIA, NAAT (test code = 95005) NEGATIVE HIV AB/AG COMBO RFLX [id number] 00:00:00 Test Item Value Reference Range Interpretation Comments HIV 1/2 4TH GEN, RFLX CONF (test NON-REACTIVE code = 3514) RPR REFLEX TO [id number] 00:00:00 Test Item Value Reference Range Interpretation Comments RPR (test code = 73194) NON-REACTIVE RPR TITER (test code = 3500) [...] INTERPRETATION HEPATITIS B: (NOTE) (test code = 41281) INTERPRETATION HEPATITIS C: (NOTE) (test code = 51853) HEPATITIS A IgM [REFLEX]2020-06-21 00:00:00 Test Item Value Reference Range Interpretation Comments HEPATITIS A IgM (test code = NON-REACTIVE 2728) GC AND CHLAMYDIA, AMPLIFIED, [id number] 00:00:00 Test Item Value Reference Range Interpretation Comments GONORRHEA, NAAT (test code = 49023) NEGATIVE CHLAMYDIA, NAAT (test code = 64415) NEGATIVE GC AND CHLAMYDIA, AMPLIFIED, [id number] 00:00:00 Test Item Value Reference Range Interpretation Comments GONORRHEA, NAAT (test code = 39892) NEGATIVE CHLAMYDIA, NAAT (test code = 75087) NEGATIVE HIV AB/AG COMBO RFLX [id number] 00:00:00 Test Item Value Reference Range Interpretation Comments HIV 1/2 4TH GEN, RFLX CONF (test NON-REACTIVE code = 3514) HIV AB/AG COMBO RFLX [id number] 00:00:00 Test Item Value Reference Range Interpretation Comments HIV 1/2 4TH GEN, RFLX CONF (test NON-REACTIVE code = 3514) RPR REFLEX TO [id number] 00:00:00 Test Item Value Reference Range Interpretation Comments RPR (test code = 69817) NON-REACTIVE RPR TITER (test code = 3500) NOT INDIC. TITER RPR REFLEX TO [id number] 00:00:00 Test Item Value Reference Range Interpretation Comments RPR (test code = 36163) NON-REACTIVE RPR TITER (test code = 3500) [...] INTERPRETATION HEPATITIS B: (NOTE) (test code = 35271) INTERPRETATION HEPATITIS C: (NOTE) (test code = 30621) HEPATITIS PROFILE (A,B,C)2020-06-21 00:00:00 Test Item Value [...] INTERPRETATION HEPATITIS B: (NOTE) (test code = 88725) INTERPRETATION HEPATITIS C: (NOTE) (test code = 97691) HEPATITIS A IgM [REFLEX]2020-06-21 00:00:00 Test Item Value Reference Range Interpretation Comments HEPATITIS A IgM (test code = NON-REACTIVE 8) GC AND CHLAMYDIA, AMPLIFIED, [id number] 00:00:00 Test Item Value Reference Range Interpretation Comments GONORRHEA, NAAT (test code = 32329) NEGATIVE CHLAMYDIA, NAAT (test code = 81510) NEGATIVE GC AND CHLAMYDIA, AMPLIFIED, [id number] 00:00:00 Test Item Value Reference Range Interpretation Comments GONORRHEA, NAAT (test code = 08511) NEGATIVE CHLAMYDIA, NAAT (test code = 24165) NEGATIVE HIV AB/AG COMBO RFLX [id number] 00:00:00 Test Item Value Reference Range Interpretation Comments HIV 1/2 4TH GEN, RFLX CONF (test NON-REACTIVE code = 3514) HIV AB/AG COMBO RFLX [id number] 00:00:00 Test Item Value Reference Range Interpretation Comments HIV 1/2 4TH GEN, RFLX CONF (test NON-REACTIVE code = 3514) RPR REFLEX TO [id number] 00:00:00 Test Item Value Reference Range Interpretation Comments RPR (test code = 77253) NON-REACTIVE RPR TITER (test code = 3500) NOT INDIC. TITER RPR REFLEX TO [id number] 00:00:00 Test Item Value Reference Range Interpretation Comments RPR (test code = 48460) NON-REACTIVE RPR TITER (test code = 3500) NOT INDIC. TITER HEPATITIS PROFILE (A,B,C)2020-06-21 00:00:00 Test Item Value Reference Range Interpretation Comments HEPATITIS A TOTAL AB (test code REACTIVE = 2725) HEPATITIS B SURF AG (test code = NON-REACTIVE 2738) HEP B CORE TOTAL AB (test code = NON-REACTIVE 9) HEPATITIS B SURFACE AB (test REACTIVE code = 2737) HEPATITIS C ANTIBODY (test code NON-REACTIVE = 4675) INTERPRETATION HEPATITIS A: (NOTE) (test code = 2552) INTERPRETATION HEPATITIS B: (NOTE) (test code = 68308) INTERPRETATION HEPATITIS C: (NOTE) (test code = 73562) HEPATITIS PROFILE (A,B,C)2020-06-21 00:00:00 Test Item Value [...] INTERPRETATION HEPATITIS B: (NOTE) (test code = 25429) INTERPRETATION HEPATITIS C: (NOTE) (test code = 05416) HEPATITIS A IgM [REFLEX]2020-06-21 00:00:00 Test Item Value Reference Range Interpretation Comments HEPATITIS A IgM (test code = NON-REACTIVE 8) VAGINAL PATHOGENS DNA [id number] 00:00:00 Test Item Value Reference Range Interpretation Comments DWIGHT SPECIES (test code = ) NEGATIVE G. VAGINALIS (test code = 02805) POSITIVE T. VAGINALIS (test code = ) NEGATIVE HIV AB/AG COMBO RFLX [id number] 00:00:00 Test Item Value Reference Range Interpretation Comments HIV 1/2 4TH GEN, RFLX CONF (test NON-REACTIVE code = 3514) [id number] 00:00:00 Test Item Value Reference Range Interpretation Comments RPR RESULT (test code = NON-REACTIVE 3501) RPR TITER (test code = 3500) NOT INDIC. TITER [id number] 00:00:00 Test Item Value Reference Range Interpretation Comments RPR RESULT (test code = NON-REACTIVE 3501) RPR TITER (test code = 3500) NOT INDIC. TITER GC AND CHLAMYDIA, AMPLIFIED, [id number] 00:00:00 Test Item Value Reference Range Interpretation Comments GONORRHEA, NAAT (test code = 49081) NEGATIVE CHLAMYDIA, NAAT (test code = 33942) NEGATIVE VAGINAL PATHOGENS DNA [id number] 00:00:00 Test Item Value Reference Range Interpretation Comments DWIGHT SPECIES (test code = ) NEGATIVE G. VAGINALIS (test code = 50593) POSITIVE T. VAGINALIS (test code = 56402) NEGATIVE VAGINAL PATHOGENS DNA [id number] 00:00:00 Test Item Value Reference Range Interpretation Comments DWIGHT SPECIES (test code = ) NEGATIVE G. VAGINALIS (test code = 87949) POSITIVE T. VAGINALIS (test code = ) NEGATIVE HIV AB/AG COMBO RFLX [id number] 00:00:00 Test Item Value Reference Range Interpretation Comments HIV 1/2 4TH GEN, RFLX CONF (test NON-REACTIVE code = 3514) HIV AB/AG COMBO RFLX [id number] 00:00:00 Test Item Value Reference Range Interpretation Comments HIV 1/2 4TH GEN, RFLX CONF (test NON-REACTIVE code = 3514) [id number] 00:00:00 Test Item Value Reference Range Interpretation Comments RPR RESULT (test code = NON-REACTIVE 3501) RPR TITER (test code = 3500) NOT INDIC. TITER [id number] 00:00:00 Test Item Value Reference Range Interpretation Comments RPR RESULT (test code = NON-REACTIVE 3501) RPR TITER (test code = 3500) NOT INDIC. TITER [id number] 00:00:00 Test Item Value Reference Range Interpretation Comments RPR RESULT (test code = NON-REACTIVE 3501) RPR TITER (test code = 3500) NOT INDIC. TITER GC AND CHLAMYDIA, AMPLIFIED, [id number] 00:00:00 Test Item Value Reference Range Interpretation Comments GONORRHEA, NAAT (test code = 56262) NEGATIVE CHLAMYDIA, NAAT (test code = 45665) NEGATIVE GC AND CHLAMYDIA, AMPLIFIED, [id number] 00:00:00 Test Item Value Reference Range Interpretation Comments GONORRHEA, NAAT (test code = 10067) NEGATIVE CHLAMYDIA, NAAT (test code = 91670) NEGATIVE VAGINAL PATHOGENS DNA [id number] 00:00:00 Test Item Value Reference Range Interpretation Comments DWIGHT SPECIES (test code = ) NEGATIVE G. VAGINALIS (test code = 08020) POSITIVE T. VAGINALIS (test code = 39048) NEGATIVE VAGINAL PATHOGENS DNA [id number] 00:00:00 Test Item Value Reference Range Interpretation Comments DWIGHT SPECIES (test code = ) NEGATIVE G. VAGINALIS (test code = 08194) POSITIVE T. VAGINALIS (test code = 51888) NEGATIVE HIV AB/AG COMBO RFLX [id number] 00:00:00 Test Item Value Reference Range Interpretation Comments HIV 1/2 4TH GEN, RFLX CONF (test NON-REACTIVE code = 3514) HIV AB/AG COMBO RFLX [id number] 00:00:00 Test Item Value Reference Range Interpretation Comments HIV 1/2 4TH GEN, RFLX CONF (test NON-REACTIVE code = 3514) [id number] 00:00:00 Test Item Value Reference Range Interpretation Comments RPR RESULT (test code = NON-REACTIVE 3501) RPR TITER (test code = 3500) NOT INDIC. TITER [id number] 00:00:00 Test Item Value Reference Range Interpretation Comments RPR RESULT (test code = NON-REACTIVE 3501) RPR TITER (test code = 3500) NOT INDIC. TITER [id number] 00:00:00 Test Item Value Reference Range Interpretation Comments RPR RESULT (test code = NON-REACTIVE 3501) RPR TITER (test code = 3500) NOT INDIC. TITER GC AND CHLAMYDIA, AMPLIFIED, [id number] 00:00:00 Test Item Value Reference Range Interpretation Comments GONORRHEA, NAAT (test code = 49795) NEGATIVE CHLAMYDIA, NAAT (test code = 17729) NEGATIVE GC AND CHLAMYDIA, AMPLIFIED, [id number] 00:00:00 Test Item Value Reference Range Interpretation Comments GONORRHEA, NAAT (test code = 30917) NEGATIVE CHLAMYDIA, NAAT (test code = 86371) NEGATIVE GC AND CHLAMYDIA, AMPLIFIED, [id number] 00:00:00 Test Item Value Reference Range Interpretation Comments GONORRHEA, TMA (test code = 29585) NEGATIVE CHLAMYDIA, TMA (test code = 70974) NEGATIVE GC AND CHLAMYDIA, AMPLIFIED, [id number] 00:00:00 Test Item Value Reference Range Interpretation Comments GONORRHEA, TMA (test code = 26276) NEGATIVE CHLAMYDIA, TMA (test code = 14336) NEGATIVE GC AND CHLAMYDIA, AMPLIFIED, [id number] 00:00:00 Test Item Value Reference Range Interpretation Comments GONORRHEA, TMA (test code = 48061) NEGATIVE CHLAMYDIA, TMA (test code = 90515) NEGATIVE GC AND CHLAMYDIA, AMPLIFIED, [id number] 00:00:00 Test Item Value Reference Range Interpretation Comments GONORRHEA, TMA (test code = 08292) NEGATIVE CHLAMYDIA, TMA (test code = 47032) NEGATIVE GC AND CHLAMYDIA, AMPLIFIED, [id number] 00:00:00 Test Item Value Reference Range Interpretation Comments GONORRHEA, TMA (test code = 58902) NEGATIVE CHLAMYDIA, TMA (test code = 84205) NEGATIVE GC AND CHLAMYDIA AMPLIFIED, [id number] 00:00:00 Test Item Value Reference Range Interpretation Comments GONORRHEA, TMA (test code TEST NOT PERFORMED = 98026) CHLAMYDIA, TMA (test code TEST NOT PERFORMED = 57260) PAP TEST, THINPREP, [id number] 00:00:00 Test Item Value Reference Range Interpretation Comments SOURCE: (test code = Cervical/Endocervical 8001) SLIDES: (test code = 1 8011) LMP: (test code = 8021) 08/19/2018 SPECIMEN ADEQUACY: (test (NOTE) code = 17131) INTERPRETATION: (test NILM/NO EPITH. code = 19128) ABNORMALITY;SEE BELOW TRAFFIC RATE COMPUTER: (test RUSSELL code = 8101) PARCHER,CT(ASCP)IAC LOCATION: (test code = (NOTE) 36610) CPT: (test code = 8140) (NOTE) PAP TEST, THINPREP, [id number] 00:00:00 Test Item Value Reference Range Interpretation Comments SOURCE: (test code = Cervical/Endocervical 8001) SLIDES: (test code = 1 8011) LMP: (test code = 8021) 08/19/2018 SPECIMEN ADEQUACY: (test (NOTE) code = 07581) INTERPRETATION: (test NILM/NO EPITH. code = 80507) ABNORMALITY;SEE BELOW TRAFFIC RATE COMPUTER: (test RUSSELL code = 8101) PARCHER,CT(ASCP)IAC LOCATION: (test code = (NOTE) 53983) CPT: (test code = 8140) (NOTE) GC AND CHLAMYDIA AMPLIFIED, [id number] 00:00:00 Test Item Value Reference Range Interpretation Comments GONORRHEA, TMA (test code TEST NOT PERFORMED = 12105) CHLAMYDIA, TMA (test code TEST NOT PERFORMED = 38823) GC AND CHLAMYDIA AMPLIFIED, [id number] 00:00:00 Test Item Value Reference Range Interpretation Comments GONORRHEA, TMA (test code TEST NOT PERFORMED = 86134) CHLAMYDIA, TMA (test code TEST NOT PERFORMED = 34568) PAP TEST, THINPREP, [id number] 00:00:00 Test Item Value Reference Range Interpretation Comments SOURCE: (test code = Cervical/Endocervical 8001) SLIDES: (test code = 1 8011) LMP: (test code = 8021) 08/19/2018 SPECIMEN ADEQUACY: (test (NOTE) code = 60504) INTERPRETATION: (test NILM/NO EPITH. code = 07272) ABNORMALITY;SEE BELOW TRAFFIC RATE COMPUTER: (test RUSSELL code = 8101) PARCHER,CT(ASCP)IAC LOCATION: (test code = (NOTE) 21249) CPT: (test code = 8140) (NOTE) GC AND CHLAMYDIA AMPLIFIED, [id number] 00:00:00 Test Item Value Reference Range Interpretation Comments GONORRHEA, TMA (test code TEST NOT PERFORMED = 91001) CHLAMYDIA, TMA (test code TEST NOT PERFORMED = 14179) PAP TEST, THINPREP, [id number] 00:00:00 Test Item Value Reference Range Interpretation Comments SOURCE: (test code = Cervical/Endocervical 8001) SLIDES: (test code = 1 8011) LMP: (test code = 8021) 08/19/2018 SPECIMEN ADEQUACY: (test (NOTE) code = 96212) INTERPRETATION: (test NILM/NO EPITH. code = 79049) ABNORMALITY;SEE BELOW TRAFFIC RATE COMPUTER: (test RUSSELL code = 8101) PARCHER,CT(ASCP)IAC LOCATION: (test code = (NOTE) 93998) CPT: (test code = 8140) (NOTE) PAP TEST, THINPREP, [id number] 00:00:00 Test Item Value Reference Range Interpretation Comments SOURCE: (test code = Cervical/Endocervical 8001) SLIDES: (test code = 1 8011) LMP: (test code = 8021) 08/19/2018 SPECIMEN ADEQUACY: (test (NOTE) code = 49119) INTERPRETATION: (test NILM/NO EPITH. code = 33624) ABNORMALITY;SEE BELOW TRAFFIC RATE COMPUTER: (test RUSSELL code = 8101) PARCHER,CT(ASCP)IAC LOCATION: (test code = (NOTE) 94413) CPT: (test code = 8140) (NOTE) GC AND CHLAMYDIA AMPLIFIED, [id number] 00:00:00 Test Item Value Reference Range Interpretation Comments GONORRHEA, TMA (test code TEST NOT PERFORMED = 31149) CHLAMYDIA, TMA (test code TEST NOT PERFORMED = 95538) [id number] 00:00:00 Test Item Value Reference Range Interpretation Comments RPR RESULT (test code = NON-REACTIVE 3501) RPR TITER (test code = 3500) NOT INDIC. TITER [id number] 00:00:00 Test Item Value Reference Range Interpretation Comments RPR RESULT (test code = NON-REACTIVE 3501) RPR TITER (test code = 3500) NOT INDIC. TITER HIV AB/AG COMBO RFLX [id number] 00:00:00 Test Item Value Reference Range Interpretation Comments HIV 1/2 4TH GEN, RFLX CONF (test NON-REACTIVE code = 3514) HPV HIGH RISK WITH GENOTYPE, [id number] 00:00:00 Test Item Value Reference Range Interpretation Comments HPV HIGH RISK INTERP (test code = NEGATIVE 11242) HPV 16 (test code = 99735) NEGATIVE HPV 18 (test code = 57345) NEGATIVE HPV, HR, OTHER GENOTYPES (test code NEGATIVE = 07719) ACUTE HEPATITIS [id number] 00:00:00 Test Item Value Reference Range Interpretation Comments HEPATITIS A IgM (test code = NON-REACTIVE 16453) HEPATITIS B CORE IgM (test code NON-REACTIVE = 4644) HEPATITIS B SURF AG (test code = NON-REACTIVE 2739) HEPATITIS C ANTIBODY (test code NON-REACTIVE = 4675) HCV INDEX (test code = 19974) 0.11 INTERPRETATION HEPATITIS A: (NOTE) (test code = 2552) INTERPRETATION HEPATITIS B: (NOTE) (test code = 53270) INTERPRETATION HEPATITIS C: (NOTE) (test code = 91972) [id number] 00:00:00 Test Item Value Reference Range Interpretation Comments RPR RESULT (test code = NON-REACTIVE 3501) RPR TITER (test code = 3500) NOT INDIC. TITER [id number] 00:00:00 Test Item Value Reference Range Interpretation Comments RPR RESULT (test code = NON-REACTIVE 3501) RPR TITER (test code = 3500) NOT INDIC. TITER [id number] 00:00:00 Test Item Value Reference Range Interpretation Comments RPR RESULT (test code = NON-REACTIVE 3501) RPR TITER (test code = 3500) NOT INDIC. TITER HIV AB/AG COMBO RFLX [id number] 00:00:00 Test Item Value Reference Range Interpretation Comments HIV 1/2 4TH GEN, RFLX CONF (test NON-REACTIVE code = 3514) HIV AB/AG COMBO RFLX [id number] 00:00:00 Test Item Value Reference Range Interpretation Comments HIV 1/2 4TH GEN, RFLX CONF (test NON-REACTIVE code = 3514) HPV HIGH RISK WITH GENOTYPE, [id number] 00:00:00 Test Item Value Reference Range Interpretation Comments HPV HIGH RISK INTERP (test code = NEGATIVE 87966) HPV 16 (test code = 48895) NEGATIVE HPV 18 (test code = 68373) NEGATIVE HPV, HR, OTHER GENOTYPES (test code NEGATIVE = 79774) HPV HIGH RISK WITH GENOTYPE, [id number] 00:00:00 Test Item Value Reference Range Interpretation Comments HPV HIGH RISK INTERP (test code = NEGATIVE 70113) HPV 16 (test code = 66251) NEGATIVE HPV 18 (test code = 57040) NEGATIVE HPV, HR, OTHER GENOTYPES (test code NEGATIVE = 30163) ACUTE HEPATITIS [id number] 00:00:00 Test Item Value Reference Range Interpretation Comments HEPATITIS A IgM (test code = NON-REACTIVE 44474) HEPATITIS B CORE IgM (test code NON-REACTIVE = 4644) HEPATITIS B SURF AG (test code = NON-REACTIVE 2739) HEPATITIS C ANTIBODY (test code NON-REACTIVE = 4675) HCV INDEX (test code = 61130) 0.11 INTERPRETATION HEPATITIS A: (NOTE) (test code = 2552) INTERPRETATION HEPATITIS B: (NOTE) (test code = 98012) INTERPRETATION HEPATITIS C: (NOTE) (test code = 81590) ACUTE HEPATITIS [id number] 00:00:00 Test Item Value Reference Range Interpretation Comments HEPATITIS A IgM (test code = NON-REACTIVE 97019) HEPATITIS B CORE IgM (test code NON-REACTIVE = 4644) HEPATITIS B SURF AG (test code = NON-REACTIVE 2739) HEPATITIS C ANTIBODY (test code NON-REACTIVE = 4675) HCV INDEX (test code = 77110) 0.11 INTERPRETATION HEPATITIS A: (NOTE) (test code = 2552) INTERPRETATION HEPATITIS B: (NOTE) (test code = 29679) INTERPRETATION HEPATITIS C: (NOTE) (test code = 84986) [id number] 00:00:00 Test Item Value Reference Range Interpretation Comments RPR RESULT (test code = NON-REACTIVE 3501) RPR TITER (test code = 3500) NOT INDIC. TITER [id number] 00:00:00 Test Item Value Reference Range Interpretation Comments RPR RESULT (test code = NON-REACTIVE 3501) RPR TITER (test code = 3500) NOT INDIC. TITER [id number] 00:00:00 Test Item Value Reference Range Interpretation Comments RPR RESULT (test code = NON-REACTIVE 3501) RPR TITER (test code = 3500) NOT INDIC. TITER HPV HIGH RISK WITH GENOTYPE, [id number] 00:00:00 Test Item Value Reference Range Interpretation Comments HPV HIGH RISK INTERP (test code = NEGATIVE 66608) HPV 16 (test code = 04760) NEGATIVE HPV 18 (test code = 14647) NEGATIVE HPV, HR, OTHER GENOTYPES (test code NEGATIVE = 78598) HPV HIGH RISK WITH GENOTYPE, [id number] 00:00:00 Test Item Value Reference Range Interpretation Comments HPV HIGH RISK INTERP (test code = NEGATIVE 81267) HPV 16 (test code = 23592) NEGATIVE HPV 18 (test code = 21924) NEGATIVE HPV, HR, OTHER GENOTYPES (test code NEGATIVE = 31331) HIV AB/AG COMBO RFLX [id number] 00:00:00 Test Item Value Reference Range Interpretation Comments HIV 1/2 4TH GEN, RFLX CONF (test NON-REACTIVE code = 3514) HIV AB/AG COMBO RFLX [id number] 00:00:00 Test Item Value Reference Range Interpretation Comments HIV 1/2 4TH GEN, RFLX CONF (test NON-REACTIVE code = 3514) ACUTE HEPATITIS [id number] 00:00:00 Test Item Value Reference Range Interpretation Comments HEPATITIS A IgM (test code = NON-REACTIVE 82556) HEPATITIS B CORE IgM (test code NON-REACTIVE = 5944) HEPATITIS B SURF AG (test code = NON-REACTIVE 8679) HEPATITIS C ANTIBODY (test code NON-REACTIVE = 4675) HCV INDEX (test code = 35114) 0.11 INTERPRETATION HEPATITIS A: (NOTE) (test code = 2552) INTERPRETATION HEPATITIS B: (NOTE) (test code = 28923) INTERPRETATION HEPATITIS C: (NOTE) (test code = 30268) ACUTE HEPATITIS [id number] 00:00:00 Test Item Value Reference Range Interpretation Comments HEPATITIS A IgM (test code = NON-REACTIVE 32551) HEPATITIS B CORE IgM (test code NON-REACTIVE = 4644) HEPATITIS B SURF AG (test code = NON-REACTIVE 2739) HEPATITIS C ANTIBODY (test code NON-REACTIVE = 4675) HCV INDEX (test code = 32502) 0.11 INTERPRETATION HEPATITIS A: (NOTE) (test code = 2552) INTERPRETATION HEPATITIS B: (NOTE) (test code = 29594) INTERPRETATION HEPATITIS C: (NOTE) (test code = 99065)"
[2023-01-14] MEDS ORDERED: MORPHINE 4 MG/ML SYR ONE (07:42)
[2023-01-14] MEDS ORDERED: ONDANSETRON 4 MG/2 ML VIAL ONE (07:42)
[2023-01-14 09:34] VITALS: O2SAT 99
[2023-01-14 09:35] VITALS: BP 112/86; TEMP 98
--- NOTE | 2023-01-14 10:39 | RAD REPORT ---
EXAM DESCRIPTION: CT abdomen and pelvis without intravenous contrast CLINICAL HISTORY: 32 years Female Abd pain;Flank pain;Pain TECHNIQUE: Axial CT imaging of the abdomen and pelvis was performed without oral or intravenous cont rast. Sagittal and coronal reconstructed images were then performed. The CT study is performed acco rding to ALARA (as low as reasonably achievable) or ALARA/IMAGE GENTLY, with automatic adjustment of mA and/or kV according to patient size. Performed on: 01/14/2023 at 6:06 AM COMPARISON: No prior studies were available for comparison.. FINDINGS: Lung bases: The lung bases are clear. There are a couple of bilateral lower lobe bullae, l arger on the left. The left lower lobe bulla measures approximately 5.4 x 5.1 cm in cross-sectional d iameter. Liver: The liver is normal in size and configuration. No focal hepatic abnormalities are appreciated on this unenhanced scan. Liver attenuation is within normal limits. Spleen: The spleen is normal in size, configuration and attenuation. No focal splenic abnormalities a re appreciated on this unenhanced scan. There is a punctate calcification in the spleen possibly repr esenting a splenic granuloma. Gallbladder and bile duct: The gallbladder is well distended and unremarkable. There is no biliary ductal dilatation. Pancreas: The pancreas is grossly normal in size and configuration. Adrenal Glands: The adrenal glands are normal in size and configuration. Kidneys: The kidneys are normal in size and configuration. There is no evidence of hydronephrosis. Th ere is a punctate nonobstructing calcification within the lower pole of the right kidney. No focal re nal abnormalities are identified. Stomach: The stomach is grossly normal. There is no definite hiatal hernia. Bowel: The bowel gas pattern is non specific and non obstructive. Appendix: The appendix is normal. Free air: There is no evidence of free air. Free fluid: There is no evidence of free fluid. Vasculature: The aorta is normal in caliber and contour. The inferior vena cava is grossly unremarkab le. Lymphadenopathy: No pathologic lymphadenopathy is identified. Bladder: The bladder is decompressed on this examination. Reproductive: The uterus is grossly within normal limits. Bones: No acute osseous abnormalities are identified. Soft tissues: No acute soft tissue abnormalities are identified. IMPRESSION: 1. No evidence of acute intra-abdominal or intrapelvic pathology. 2. Punctate nonobstructing calcification within the lower pole of the right kidney. 3. There are a couple of bilateral lower lobe bullae, larger on the left. The left lower lobe bulla measures approximately 5.4 x 5.1 cm in cross-sectional diameter. Electronically signed by: Lucretia Suárez DO 01/14/2023 7:30 AM CDT Due to temporary technical issues with the PACS/Fluency reporting system, reports are being signed by the in house radiologist without review as a courtesy to ensure prompt reporting. The interpreting r adiologist is fully responsible for the content of the report.
== END 2023-01-14 08:40 | disposition home or self-care (01) ==
LOC: ER 04:51
DX: M54.50 Low back pain, unspecified (principal); F31.9 Bipolar disorder, unspecified; Z88.8 Allergy status to other drugs, medicaments and biological substances
CPT/HCPCS: 36415; 74176; 80053; 81001; 81025; 83690; 85025; J2405; J7030

== ENCOUNTER 2023-02-13 14:38 | Emergency (ER) | payer OTHER ==
--- OUTSIDE RECORDS SUMMARY | 2023-02-13 14:46 | XMS REPORT | Continuity of Care Document ---
:1990 Author Organization [facility] t Address [address] [place] [address] [address] [place] [address] Care Team Providers Name Role Phone Sara SUETitaBlessing Primary Care Physician [phone] YANICK LYLE Attending Clinician Unavailable Doctor Unassigned, [place] Attending Clinician Unavailable Cathie Subramanian MD Attending Clinician RIVERA PINK Attending Clinician Unavailable CATHIE SUBRAMANIAN Attending Clinician Unavailable Rivera Last Attending Clinician JESSE DONG Attending Clinician Unavailable ERICA KLINE Attending Clinician Unavailable RADIOLOGY Attending Clinician Unavailable Radiology Attending Clinician Unavailable TIMOTEO AMAYA Attending Clinician Unavailable Timoteo May Attending Clinician Karen Burnett PA-C Attending Clinician KAREN BURNETT Attending Clinician Unavailable Jesse Dong MD Attending Clinician BRYN BRADLEY Attending Clinician Unavailable BERTHA Attending [...] Effective Date Expiration Date Briana [facility] [id number] 2020 HEALTH 00:00:00 [facility] [place] [id number] 2019 WOMEN 00:00:00 [facility]MERLY [facility] [id number] 2018 CHOICE MEDICAID 00:00:00 Problems Condition Condition Condition Status Onset Resolution Last Treating Co mments Source Name Details Category Date Date Treatment Clinician Date Infection Infection Disease Active Uni vers of hand of hand 8-18 ity of due to due to 00:00: [place] bite bite Medical Branch Gastroesop Gastroesop Disease Active 2018-04 U nivers hageal hageal 2-05 ity of reflux reflux 00:00: [place] disease disease 00 Medical without without Branch esophagiti esophagiti s s Abnormal Abnormal Disease Active 2018-04 Unive rs maternal maternal 1-08 ity of glucose glucose 00:00: [place] tolerance, tolerance, 00 Me dical antepartum antepartum Br anch Underweigh Underweigh Disease Active U nivers t t 01-21 ity of 00:00: [place] 00 Medical Branch History of History of Disease Active U nivers bipolar bipolar 01-21 ity of disorder disorder 00:00: [place] [facility] Polysubsta Polysubsta Disease Active 2019- U nivers nce abuse nce abuse 01-17 ity of 00:00: [place] 00 Medical Branch PTSD PTSD Disease Active Univers (post-trau (post-trau 01-17 it y of matic matic 00:00: [place] stress stress 00 Medical disorder) disorder) Bran [...] Multiparit Disease Active U nivers y y 10-22 ity of 00:00: Medical Branch Eating Eating Disease Active Univers disorder disorder 10-22 ity of 00:00: [place] [facility] Anxiety Anxiety Disease Active Univers and and 10-22 ity of depression depression [place] [facility] [place] Lost Lost Disease Active Univers custody of custody of 10-22 it y of children children 00:00: [place] [facility] History of History of Disease Active U nivers seizures seizures 10-22 ity of 00:00: [place] [facility] [place] Allergies, Adverse Reactions, Alerts Allergy Allergy Status Severity Reaction(s) Onset Inactive Treating Comm ents Source Name Type Date Date Clinician Mesna - Propensi Active Intraven ty to 6-24 ous adverse 00:00: reaction 00 to drug Ziprasid Propensi Active Hallucinatio Univers one ty to ns 1-10 ity of Mesylate adverse 00:00: [place] reaction 00 [facility] s Branch Risperid Propensi Active Hallucinatio 2020-0 Univers one ty to ns 1-10 ity of adverse 00:00: [place] reaction 00 [facility] Branch ZIPRASID DRUG Active Hallucinates 0 [place] ONE INGREDI 1-10 ity of MESYLATE 00:00: Medical [place] RISPERID DRUG Active Hallucinates [place] ONE INGREDI 1-10 ity of 00:00: [place] [facility] [place] NO KNOWN Drug Active Univers ALLERGIE Class ity of S [facility] Social History Social Habit Start Date Stop Date Quantity Comments Source History of tobacco 2001-10-22 Cigarette Smoker University of use 00:00:00 [facility] History SDOH University o f Alcohol Std Drinks [place] [facility] [place] History SDOH University o f Alcohol Binge [facility] al Branch History SDOH University o f Alcohol Comment [place] Med ical Branch Sexual orientation Univer [facility] Exposure to 2022-04-20 2022-04-30 Not sure University of SARS-CoV-2 (event) 00:00:00 14:04:00 [facility] Tobacco Comment 2022-04-30 2022-04-30 Has too much Univers ity of 00:00:00 00:00:00 stress to quit [facility] History of Social 2022-04-30 2022-04-30 Univers ity of function 00:00:00 00:00:00 [facility] Alcohol intake 2020-04-04 2020-04-04 0 /d University of 00:00:00 00:00:00 [facility] History SDOH 2018-10-22 2018-10-22 1 University o f Alcohol Frequency 00:00:00 00:00:00 [facility] Cigarettes smoked 2018-10-22 2018-10-22 Univers ity of current (pack per 00:00:00 00:00:00 [facility] [place] [facility]) - Reported Branch Tobacco use and 2018-10-22 2018-10-22 Smokeless Universit y of exposure 00:00:00 00:00:00 tobacco non-user [facility] Sex [birth year] Universit y of 00:00:00 00:00:00 [facility] Smoking Status Start Date Stop Date Source Smokes tobacco daily 2018-10-22 00:00:00 Univers ity of [facility] Medications Ordered Filled Start Stop Current Ordering Indication Dosage Frequency Signature Comments Components Source Medication Medication Date Date Medication? Clinician (SIG) Name Name No known No No known Unive rs medications - medication it y of 14:13: s [address] No known No No known Unive rs medications - medication it y of 14:13: [address] No known No No known Unive rs medications - medication it y of 14:13: [address] TAKE 1 2021-04 No CAPSULE BY 0-27 MOUTH TWICE 00:00: DAILY 00 TAKE 1 0 No TABLET BY 9-13 MOUTH EVERY 00:00: 8 HOURS 00 WITH FOOD AND DRINK PLENTY OF WATER FOR PAIN TAKE 0 No TABLET BY 9-13 MOUTH EVERY 00:00: 8 HOURS 00 WITH FOOD AND DRINK PLENTY OF WATER FOR PAIN BUSPIRONE No TAB 15MG 12-23 00:00: 00 BUSPIRONE 2021-0 No TAB 15MG 8-29 00:00: 00 QUETIAPINE 2022-0 No TAB 25MG 8-22 00:00: 00 QUETIAPINE 2022-0 No TAB 25MG 8-22 00:00: 00 Dose 2022-0 No Unknown 8-09 00:00: 00 Dose 2022-0 No Unknown 8-09 00:00: 00 Dose 2022-0 No Unknown 7-08 [...] 7-08 00:00: 00 Dose 2022-0 No Unknown 7-06 00:00: 00 Dose 2022-0 No Unknown 7-06 00:00: 00 Dose 2022-0 No Unknown 7-06 00:00: 00 Dose 2022-0 No Unknown 7-06 00:00: 00 Dose 2022-0 No Unknown 7-06 00:00: 00 Dose 2022-0 No Unknown 7-06 00:00: 00 Dose 2022-0 No Unknown 7-06 00:00: 00 Dose 2022-0 No Unknown 7-06 00:00: 00 Dose 2022-0 No Unknown 7-06 00:00: 00 iopamidol 2-0 2022- No [id number] 80mL 80 mL, [place] (ISOVUE 630 06-30 Intravenou ity o f 370-500 mL) 14:15: 13:09 s, ONCE, 1 [place] injection 00 :00 dose, On Medica l 80 mL Kya Branch 10/24/21 at 0915, Routine ibuprofen 2021-0 No 1mg 600 mg 6-24 tablet 00:00: 00 amoxicillin 2021-0 No 1mg 500 mg 6-24 capsule 00:00: 00 ibuprofen 2021-0 No 1mg 600 mg 6-24 tablet 00:00: 00 amoxicillin 2022-0 No 1mg 500 mg 6-24 capsule 00:00: 00 ibuprofen 2021-0 No 1mg 600 mg 6-24 tablet 00:00: 00 amoxicillin 2021-0 No 1mg 500 mg 6-24 capsule 00:00: 00 ketorolac 2021-0 202- No 30mg 30 mg, Unive rs (TORADOL) 5-30 05-30 Slow IV ity of injection 20:30: 19:44 Push, [place] 30 mg 00 :00 ONCE, 1 Medical dose, On Branch [facility] 09/23/21 at 1530, JENNIFER
Fa culty member approving Restricted medication : TIMOTEO AMAYA iopamidol 2021- No [id number] 100mL 100 mL, Univers (ISOVUE 5-30 05-30 Intravenou ity o f 370-500 mL) 20:00: 20:15 s, ONCE, 1 [place] injection 00 :00 dose, On Medica l 100 mL [facility] 09/23/21 at 1515, Routine ondansetron 2021- No 4mg 4 mg, Slow Univers (ZOFRAN 5-30 05-30 IV Push, ity of (PF)) 19:45: 19:43 ONCE, 1 [place] injection 4 00 :00 dose, On Medi erick mg [facility] 09/23/21 at 1445, JENNIFER No known No Univers medications 5-30 ity of 13:33: [address] No known 2021-0 No Univers medications 5-30 ity of 13:33: [address] No known 2021-0 No Univers medications 5-30 ity of 13:33: [address] No known 2021-0 No Univers medications 5-30 ity of 13:33: [address] No known 2021-0 No No known Unive rs medications 5-30 medication it y of 13:33: [address] No known 2021-0 No No known Unive rs medications 5-30 medication it y of 13:33: [address] No known 2021-0 No No known Unive rs medications 5-30 medication it y of 13:33: [address] No known 2021-0 No No known Unive rs medications 5-30 medication it y of 13:33: s [address] metronidazo 2022-0 No 1mg le 500 mg [...] mcg/actuati 00:00: on aerosol 00 inhaler Tessalon 2020-04 No 12mg Perles 100 0-18 mg capsule 00:00: 00 ProAir HFA 2020-04 No 2mcg/ac 90 0-12 [...] mcg/actuati 00 on nasal spray,suspe nsion Bromfed 2020-04 No 10mg/5 2 mg-30 0-06 mL mg-10 mg/5 00:00: mL oral 00 syrup Zithromax 2020-04 No 1mg 250 mg 0-06 tablet 00:00: 00 Flonase 2020-04 No 2mcg/ac Allergy 0-06 tuation Relief 50 00:00: mcg/actuati 00 on nasal spray,suspe nsion Bromfed 2020-04 No 10mg/5 2 mg-30 0-06 mL mg-10 mg/5 00:00: mL oral 00 syrup Zithromax 2020-04 No 1mg 250 mg 0-06 tablet 00:00: 00 Flonase 2020-04 No 2mcg/ac Allergy 0-06 tuation Relief 50 00:00: mcg/actuati 00 on nasal spray,suspe nsion Bromfed 2020-04 No 10mg/5 2 mg-30 0-06 mL mg-10 mg/5 00:00: mL oral 00 syrup hydroxyzine 2020-0 No 1mg HCl 25 mg 3-04 tablet 00:00: 00 Protonix 40 1-0 No 1mg mg 3-04 tablet,dung 00:00: yed release 00 hydroxyzine 1-0 No 1mg HCl 25 mg 3-04 tablet 00:00: 00 hydroxyzine 2020-0 No 1mg HCl 25 mg 3-04 tablet [...] mg 3-03 tablet 00:00: 00 Protonix 40 1-0 No 1mg mg 3-03 tablet,dung 00:00: yed release 00 hydroxyzine 1-0 No 1mg HCl 25 mg 3-03 tablet 00:00: 00 No known 2020-0 No Univers medications -27 ity of 18:00: [address] methylpredn 2019-1 No mg isolone 4 1-14 mg tablets 00:00: in a dose 00 pack methylpredn 2019- No mg isolone 4 1-14 mg tablets 00:00: in a dose 00 pack methylpredn 2019- No mg isolone 4 1-14 mg tablets 00:00: in a dose 00 pack Flagyl 500 2019-1 No 1mg mg tablet 0-28 00:00: 00 Flagyl 500 2019-1 No 1mg mg tablet 0-28 00:00: 00 Flagyl 500 2019- No 1mg mg tablet 0-28 00:00: 00 NUVARING 2019-0 2020- No 1{each} Insert 1 U nivers 0.12-0.015 -16 05-23 Each into ity of mg/24 hr 00:00: 00:00 vagina [place] vaginal 00 :00 once every Medica l insert month. Branch Insert vaginally and leave in place for 3 consecutiv e weeks, then remove for 1 week. busPIRone 2018-04- No [id number] 15mg Take 1 U nivers 15 mg 05-23 tablet by ity of tablet 00:00: 00:00 mouth 2 [place] 00 :00 (two) Medical times Branch daily. 2018-04- No [id number] 1{tbl} Take 1 Univers vitamin 05-23 tablet by ity of w/FA tablet 00:00: 00:00 [place] 00 :[place] daily. Medical Branch docusate 2018-04- No [id number] 240mg Take 1 U nivers calcium 240 05-23 capsule by i ty of mg capsule 00:00: 00:00 mouth once [place] 00 :00 daily as Medical needed for Branch Constipati on. ferrous 2018-04- No [id number] 325mg Take 1 [place] sulfate 325 05-23 tablet by it y of mg (65 mg 00:00: 00:00 [place] 2 [place] iron[place] 00 :00 (two) Medical tablet times Branch daily. ibuprofen 2018-04- No [id number] 600mg Take 1 Univers 600 mg 05-23 tablet by ity of tablet 00:00: 00:00 mouth [place] 00 :00 every 6 Medical (six) Branch hours as needed (Pain). Take with food or milk. Immunizations Ordered Filled Date Status Comments Source Immunization Name Immunization Name TDAP (ADACEL) 2019-03-10 Completed University of VACCINE 00:00:00 [facility] TDAP (ADACEL) 2019-03-10 Completed University of VACCINE 00:00:00 [facility] TDAP (ADACEL) 2019-03-10 Completed University of VACCINE 00:00:00 [facility] TDAP (ADACEL) 2019-03-10 Completed University of VACCINE 00:00:00 [facility] TDAP (ADACEL) 2019-03-10 Completed University of VACCINE 00:00:00 [facility] TDAP (ADACEL) 2019-03-10 Completed University of VACCINE 00:00:00 [facility] TDAP (ADACEL) 2019-03-10 Completed University of VACCINE 00:00:00 [facility] TDAP (ADACEL) 2019-03-10 Completed University of VACCINE 00:00:00 [facility] TDAP (ADACEL) 2019-03-10 Completed University of VACCINE 00:00:00 [facility] TDAP (ADACEL) 2019-03-10 Completed University of VACCINE 00:00:00 [place] [facility] TDAP (ADACEL) 2019-03-10 Completed University of VACCINE 00:00:00 [place] [facility] TDAP (ADACEL) 2019-03-10 Completed University of VACCINE 00:00:00 [facility] TDAP (ADACEL) 2019-03-10 Completed University of VACCINE 00:00:00 [facility] TDAP (ADACEL) 2019-03-10 Completed University of VACCINE 00:00:00 [facility] TDAP (ADACEL) 2019-03-10 Completed University of VACCINE 00:00:00 [facility] MMR 2012-11-22 Completed University of 00:00:00 [facility] MMR 2012-11-22 Completed University of 00:00:00 [facility] MMR 2012-11-22 Completed University of 00:00:00 [facility] MMR 2012-11-22 Completed University of 00:00:00 [facility] MMR 2012-11-22 Completed University of 00:00:00 [facility] MMR 2012-11-22 Completed University of 00:00:00 [facility] MMR 2012-11-22 Completed University of 00:00:00 [facility] MMR 2012-11-22 Completed University of 00:00:00 [facility] MMR 2012-11-22 Completed University of 00:00:00 [facility] MMR 2012-11-22 Completed University of 00:00:00 [facility] MMR 2012-11-22 Completed University of 00:00:00 [facility] MMR 2012-11-22 Completed University of 00:00:00 [facility] MMR 2012-11-22 Completed University of 00:00:00 [facility] MMR 2012-11-22 Completed University of 00:00:00 [facility] MMR 2012-11-22 Completed University of 00:00:00 [facility] HEPATITIS A 2012-10-19 Completed University of 00:00:00 [facility] MMR 2012-10-19 Completed University of 00:00:00 [facility] HEPATITIS A 2012-10-19 Completed University of 00:00:00 [facility] MMR 2012-10-19 Completed University of 00:00:00 [facility] HEPATITIS A 2012-10-19 Completed University of 00:00:00 [facility] MMR 2012-10-19 Completed University of 00:00:00 [place] [facility] HEPATITIS A 2012-10-19 Completed University of 00:00:00 [place] [facility] MMR 2012-10-19 Completed University of 00:00:00 [place] [facility] HEPATITIS A 2012-10-19 Completed University of 00:00:00 [place] [facility] MMR 2012-10-19 Completed University of 00:00:00 [place] [facility] HEPATITIS A 2012-10-19 Completed University of 00:00:00 [place] [facility] MMR 2012-10-19 Completed University of 00:00:00 [place] [facility] HEPATITIS A 2012-10-19 Completed University of 00:00:00 [place] [facility] MMR 2012-10-19 Completed University of 00:00:00 [place] [facility] HEPATITIS A 2012-10-19 Completed University of 00:00:00 [place] [facility] MMR 2012-10-19 Completed University of 00:00:00 [place] [facility] HEPATITIS A 2012-10-19 Completed University of 00:00:00 [place] [facility] MMR 2012-10-19 Completed University of 00:00:00 [place] [facility] HEPATITIS A 2012-10-19 Completed University of 00:00:00 [place] [facility] MMR 2012-10-19 Completed University of 00:00:00 [place] [facility] HEPATITIS A 2012-10-19 Completed University of 00:00:00 [place] [facility] MMR 2012-10-19 Completed University of 00:00:00 [place] [facility] HEPATITIS A 2012-10-19 Completed University of 00:00:00 [place] [facility] MMR 2012-10-19 Completed University of 00:00:00 [place] [facility] HEPATITIS A 2012-10-19 Completed University of 00:00:00 [place] [facility] MMR 2012-10-19 Completed University of 00:00:00 [place] [facility] HEPATITIS A 2012-10-19 Completed University of 00:00:00 [place] [facility] MMR 2012-10-19 Completed University of 00:00:00 [place] [facility] HEPATITIS A 2012-10-19 Completed University of 00:00:00 [place] [facility] MMR 2012-10-19 Completed University of 00:00:00 [facility] TDAP (ADACEL) Unknown Completed University of VACCINE [facility] HEPATITIS A Unknown Completed [facility] MMR Unknown Completed [facility] MMR Unknown Completed [facility] [place] [facility] TDAP (ADACEL) Unknown Completed University of VACCINE [facility] HEPATITIS A Unknown Completed [facility] MMR Unknown Completed [facility] MMR Unknown Completed [facility] TDAP (ADACEL) Unknown Completed [facility] HEPATITIS A Unknown Completed [facility] MMR Unknown Completed [facility] MMR Unknown Completed [facility] TDAP (ADACEL) Unknown Completed [facility] HEPATITIS A Unknown Completed [facility] MMR Unknown Completed [facility] MMR Unknown Completed [facility] TDAP (ADACEL) Unknown Completed [facility] HEPATITIS A Unknown Completed [facility] MMR Unknown Completed [facility] MMR Unknown Completed [facility] TDAP (ADACEL) Unknown Completed [facility] HEPATITIS A Unknown Completed [facility] MMR Unknown Completed [facility] MMR Unknown Completed [facility] TDAP (ADACEL) Unknown Completed [facility] HEPATITIS A Unknown Completed [facility] MMR Unknown Completed [facility] MMR Unknown Completed [facility] Vital Signs Vital Name Observation Time Observation Value Comments Source Systolic blood 2022-04-30 148 mm[Hg] pt on the phone University of pressure 20:12:00 [facility] Diastolic blood 2022-04-30 103 mm[Hg] [facility] y of pressure 20:12:00 [facility] Heart rate 2022-04-30 108 /min University of 20:12:00 [facility] Systolic blood 2021-09-23 117 mm[Hg] University of pressure 23:07:54 [facility] Diastolic blood 2021-09-23 80 mm[Hg] [place] o f pressure 23:07:54 [facility] Heart rate 2021-09-23 78 /min University of 23:07:54 [facility] Respiratory rate 2021-09-23 18 /min University of 23:07:54 [facility] Oxygen saturation 2021-09-23 98 /min [facility] in Arterial blood 23:07:54 [facility] by Pulse oximetry [place] Body temperature 2021-09-23 36.94 Diya University of 18:10:00 [facility] Body height 2021-09-23 165.1 cm University of 18:10:00 [facility] Body weight 2021-09-23 49.896 kg University of 18:10:00 [facility] BMI 2021-09-23 18.30 kg/m2 University of 18:10:00 [facility] BP Systolic 2022-03-05 09:57:00 BP Diastolic [...] EXTERNAL PROVIDER 2022-07-01 06:01:00 Doctor Unassigned, No [facility] [place] RECORDS Name Medical Branch AUTHORIZATION FOR 2021-11-25 05:01:00 [facility]assigned, [facility] [place] RELEASE OF PHI Name Medical Branch REFERRAL- 2021-11-11 05:01:00 Doctor Unassigned, No Univer sity [facility] REQUEST/RESPONSE Name Medical Branch US PELVIS COMPLETE WITH 2021-10-24 13:17:52 [facility] CT THORAX W CONTRAST 2021-10-24 13:08:26 Requisition, Paper Univ [facility] CT THORAX WO CONTRAST 2021-10-24 13:08:08 [facility] 2021-09-23 22:52:01 Timoteo Amaya [facility] TRANSVAGINAL [facility] CT ABDOMEN PELVIS W 2021-09-23 20:02:13 Timotoe Amaya [facility] Branch COMP. METABOLIC PANEL 2021-09-23 19:12:00 Timoteo Amaya [facility] ([id number]) [facility] CBC WITH DIFF 2021-09-23 19:12:00 Timoteo Amaya [facility] POCT TEST 2021-09-23 18:47:00 Timoteo Amaya [facility] URINALYSIS 2021-09-23 18:41:00 Timoteo Amaya [facility] NOTICE OF PRIVACY 2021-09-23 17:59:15 Doctor Unassigned, No [facility] PRACTICES Name [facility] Branch CONSENT/REFUSAL FOR 2021-09-23 17:59:01 Doctor Unassigned, No Un [facility] DIAGNOSIS AND TREATMENT Name [facility] [id number] Colposcopy Cervix 2021-08-29 00:00:00 Bx Cervix endocrv Curtg Plan of Care Planned Activity Planned Date Details Comments Source Goal Plan of Care Note [code = 28981-7] Goal Plan of Care Note [code = 99674-2] Goal Plan of Care Note [code = 07948-2] Goal Plan of Care Note [code = 05554-4] Goal Plan of Care Note [code = 18090-3] Goal Plan of Care Note [code = 86417-8] Goal Plan of Care Note [code = 74227-3] Goal Plan of Care Note [code = 29555-4] Goal Plan of Care Note [code = 05769-9] Goal Plan of Care Note [code = 19847-2] Goal Plan of Care Note [code = 86958-4] Goal Plan of Care Note [code = 51792-8] Goal Plan of Care Note [code = 05339-8] Goal Plan of Care Note [code = 68915-8] Goal Plan of Care Note [code = 27957-1] Goal Plan of Care Note [code = 37994-7] Goal Plan of Care Note [code = 98818-9] Goal Plan of Care Note [code = 28958-7] Goal Plan of Care Note [code = 95175-1] Goal Plan of Care Note [code = 70688-6] Goal Plan of Care Note [code = 82901-0] Goal Plan of Care Note [code = 97124-9] Goal Plan of Care Note [code = 47409-4] Goal Plan of Care Note [code = 54326-7] Goal Plan of Care Note [code = 64456-1] Goal Plan of Care Note [code = 30615-6] Goal Plan of Care Note [code = 57796-8] Goal Plan of Care Note [code = 45256-9] Goal Plan of Care Note [code = 65284-9] Goal Plan of Care Note [code = 85428-2] Goal Plan of Care Note [code = 35716-0] Goal Plan of Care Note [code = 74216-8] Goal Plan of Care Note [code = 59091-2] Goal Plan of Care Note [code = 81009-3] Goal Plan of Care Note [code = 29554-5] Goal Plan of Care Note [code = 88167-7] Goal Plan of Care Note [code = 63170-6] Goal Plan of Care Note [code = 01609-4] Goal Plan of Care Note [code = 89946-9] Goal Plan of Care Note [code = 33816-9] Goal Plan of Care Note [code = 03296-1] Goal Plan of Care Note [code = 90312-4] Goal Plan of Care Note [code = 56690-8] Goal Plan of Care Note [code = 71933-2] Goal Plan of Care Note [code = 19782-9] Goal Plan of Care Note [code = 27450-5] Goal Plan of Care Note [code = 19962-1] Goal Plan of Care Note [code = 06728-9] Goal Plan of Care Note [code = 27207-3] Goal Plan of Care Note [code = 02101-2] Goal Plan of Care Note [code = 98811-4] Goal Plan of Care Note [code = 45854-7] Goal Plan of Care Note [code = 32210-0] Goal Plan of Care Note [code = 77412-5] Goal Plan of Care Note [code = 85753-8] Goal Plan of Care Note [code = 53583-4] Goal Plan of Care Note [code = 37845-6] Goal Plan of Care Note [code = 05962-7] Goal Plan of Care Note [code = 80633-9] Goal Plan of Care Note [code = 96070-7] Goal Plan of Care Note [code = 07708-7] Goal Plan of Care Note [code = 99841-8] Goal Plan of Care Note [code = 39982-8] Goal Plan of Care Note [code = 13204-1] Goal Plan of Care Note [code = 93030-1] Goal Plan of Care Note [code = 86636-0] Goal Plan of Care Note [code = 70005-2] Goal Plan of Care Note [code = 55454-3] Goal Plan of Care Note [code = 57124-1] Goal Plan of Care Note [code = 04933-9] Goal Plan of Care Note [code = 55086-4] Goal Plan of Care Note [code = 62471-3] Goal Plan of Care Note [code = 07493-9] Goal Plan of Care Note [code = 76749-4] Goal Plan of Care Note [code = 39137-5] Goal Plan of Care Note [code = 09063-4] Goal Plan of Care Note [code = 50116-7] Goal Plan of Care Note [code = 33763-6] Goal Plan of Care Note [code = 21296-9] Goal Plan of Care Note [code = 68574-0] Goal Plan of Care Note [code = 65957-2] Goal Plan of Care Note [code = 94641-5] Goal Plan of Care Note [code = 25190-5] Goal Plan of Care Note [code = 88140-6] Goal Plan of Care Note [code = 46362-9] Goal Plan of Care Note [code = 75346-9] Goal Plan of Care Note [code = 17187-7] Goal Plan of Care Note [code = 76338-1] Goal Plan of Care Note [code = 06027-0] Goal Plan of Care Note [code = 11012-3] Goal Plan of Care Note [code = 81787-4] Goal Plan of Care Note [code = 74078-2] Goal Plan of Care Note [code = 18055-1] Goal Plan of Care Note [code = 59495-7] Goal Plan of Care Note [code = 46296-3] Goal Plan of Care Note [code = 11792-8] Goal Plan of Care Note [code = 65808-2] Goal Plan of Care Note [code = 22486-1] Goal Plan of Care Note [code = 52258-8] Goal Plan of Care Note [code = 81435-0] Goal Plan of Care Note [code = 85155-3] Goal Plan of Care Note [code = 54428-6] Goal Plan of Care Note [code = 61042-9] Goal Plan of Care Note [code = 84516-0] Goal Plan of Care Note [code = 43862-6] Goal Plan of Care Note [code = 97852-7] Goal Plan of Care Note [code = 24309-0] Goal Plan of Care Note [code = 28388-2] Goal Plan of Care Note [code = 17435-1] Goal Plan of Care Note [code = 01520-7] Goal Plan of Care Note [code = 68772-6] Goal Plan of Care Note [code = 54708-5] Goal Plan of Care Note [code = 11789-2] Goal Plan of Care Note [code = 03324-3] Goal Plan of Care Note [code = 58718-2] Goal Plan of Care Note [code = 26480-1] Goal Plan of Care Note [code = 46380-5] Goal Plan of Care Note [code = 10663-4] Goal Plan of Care Note [code = 48565-3] Goal Plan of Care Note [code = 08173-6] Goal Plan of Care Note [code = 39741-4] Goal Plan of Care Note [code = 66767-6] Goal Plan of Care Note [code = 36120-5] Goal Plan of Care Note [code = 12378-1] Goal Plan of Care Note [code = 34293-1] Goal Plan of Care Note [code = 71292-7] Goal Plan of Care Note [code = 62693-7] Goal Plan of Care Note [code = 38189-7] Goal Plan of Care Note [code = 77119-1] Goal Plan of Care Note [code = 41574-1] Goal Plan of Care Note [code = 38256-6] Goal Plan of Care Note [code = 34855-0] Goal Plan of Care Note [code = 56582-4] Goal Plan of Care Note [code = 58610-0] Goal Plan of Care Note [code = 45900-3] Goal Plan of Care Note [code = 37353-7] Goal Plan of Care Note [code = 86431-0] Goal Plan of Care Note [code = 10103-6] Goal Plan of Care Note [code = 52509-4] Goal Plan of Care Note [code = 13899-1] Goal Plan of Care Note [code = 99462-9] Goal Plan of Care Note [code = 86370-3] Goal Plan of Care Note [code = 13292-5] Goal Plan of Care Note [code = 38003-7] Goal Plan of Care Note [code = 26779-2] Goal Plan of Care Note [code = 21792-2] Goal Plan of Care Note [code = 08184-6] Goal Plan of Care Note [code = 66123-6] Encounters Start End Encounter Admission Attending Care Care Encounter Source Date/Time Date/Time Type Type Clinicians Facility Department ID 2021-02-23 Emergency [facility] [id number] Univers 16:17:01 [facility] 2021-02-22 Emergency X VALDO, [facility] [id number] Univers 13:07:11 YANICK [facility] 2023-01-07 2023-01-07 Outpatient SFA SFA [id number] 023 Azam 13:16:59 13:16:59 0913 [place] 2022-12-03 2022-12-03 Outpatient SFA SFA [id number] 023 Azam 19:26:04 19:26:04 0809 [facility] [place] 2022-11-17 2022-11-17 Outpatient SFA SFA [id number] 023 Azam 13:05:19 13:05:19 0724 [place] 2022-11-10 2022-11-10 Outpatient SFA SFA [id number] 023 Azam 10:41:21 10:41:21 0717 [place] 2022-11-08 2022-11-08 Outpatient SFA SFA [id number] 023 Azam 14:16:42 14:16:42 0715 [place] 2022-10-31 2022-10-31 Outpatient SFA SFA [id number] 023 Azam 14:26:52 14:26:52 0707 [place] 2022-10-27 2022-10-27 Outpatient SFA SFA [id number] 023 Azam 11:18:15 11:18:15 0703 [place] 2022-10-24 2022-10-24 Outpatient SFA SFA [id number] 023 Azam 15:42:10 15:42:10 06 [facility] 2022-07-08 2022-07-08 Outpatient SFA SFA [id number] 023 Azam 14:24:41 14:24:41 0314 [facility] 2022-07-01 2022-07-01 Orders Doctor HEATHER 1.2.840.114 [id number] Univers 00:00:00 00:00:00 Only Unassigned, LILIAN 350.1.13.10 ity of [facility] 4.2.7.2.686 Segun as [phone] [address] 2022-05-07 2022-05-07 Telephone [facility] 1.2.840.114 [id number] Univers 00:00:00 00:00:00 [facility] 350.1.13.10 it y of [place] 4.2.7.2.686 Segun as MORRO?BLEA [phone] Mo dutch RAJAN [address] [place] [address] OFFICE [facility] 2022-05-05 2022-05-05 Telephone [facility] 1.2.840.114 [id number] Univers 00:00:00 00:00:00 Cathie HEALTH 350.1.13.10 it y of [place] 4.2.7.2.686 Segun as MORRO?BLEA [id number] Mo dutch [address] OFFICE [facility] 2022-05-01 2022-05-01 Outpatient Opal PINK [facility] [id number] Univers 16:00:00 16:00:00 RIVERA shipley [facility] 2022-04-302022-04-30 [facility] [id number] Univers 14:30:00 14:30:00 Visit Cathie Park [facility] 350.1.13.10 it y of [place] 4.2.7.2.686 Segun as MORRO?BLEA [phone] Mo dutch RAJAN 198 [facility] 2022-04-30 2022-04-30 [facility]patient [facility] [id number] Univers 14:30:00 14:22:11 CATHIE [facility] 2022-04-29 2022-04-29 Outpatient [facility] [id number] Univers 14:00:00 14:00:00 RIVERA [facility] 2022-04-29 2022-04-29 [facility]phone [facility] 1.2.679.947 [id number] Univers 00:00:00 00:00:00 Rivera [facility] 350.1.13.10 it y of [place] 4.2.7.2.686 Segun as MORRO?BLEA [phone] Mo dutch RAJAN [address] [place] [address] 2022-04-28 2022-04-28 Telephone [facility] 1.2.840.114 [id number] Univers 00:00:00 00:00:00 Cathie Park [facility] 350.1.13.10 it y of [place] 4.2.7.2.686 Segun as MORRO?BLEA [phone] Mo dutch RAJAN [address] [place] [address] 2022-04-25 2022-04-25 Outpatient [facility] [id number] Azam 10:00:19 10:00:19 1230 [place] 2022-04-01 2022-04-01 Outpatient JESSE SHIELDS [facility] [id number] Univers 14:00:00 14:00:00 [facility] 2022-03-27 2022-03-27 Outpatient Opal IKER JESSE [facility] [id number] Univers 13:30:00 13:30:00 [facility] 2022-03-05 2022-03-05 Outpatient [id number] 00:00:00 00:00:00 Visit 5z43-633i e99-147y-u -i99u-bwe 71d-bbd24e 83d4y0ubu 9a5bdc 2022-02-14 2022-02-14 Outpatient R ELIUD, [facility] [id number] Univers 09:30:00 09:30:00 ERICA shipley of [facility] 2022-02-13 2022-02-13 Outpatient [facility] [id number] Azam 13:45:00 13:45:00 1020 F [place] 2022-02-13 2022-02-13 Outpatient [id number] 00:00:00 00:00:00 Visit 932d-427d 32d-427d-a -mx07-77g c21-95t6wn 3yat082rt d971ae 2021-11-25 2021-11-25 Orders Doctor HEATHER 1.2.840.114 [id number] Univers 00:00:00 00:00:00 Only Unassigned, LILIAN 350.1.13.10 ity of [place] [facility] 4.2.7.2.686 Segun as [phone] [address] 2021-11-11 2021-11-11 Orders Doctor HEATHER 1.2.840.114 [id number] Univers 00:00:00 00:00:00 Only Unassigned, LILIAN 350.1.13.10 ity of [place] [facility] 4.2.7.2.686 Segun as [phone] [address] 2021-10-30 2021-10-30 Outpatient [id number] 00:00:00 00:00:00 Visit b3q4-501n 0m5-775h-r -dx0h-7td k6x-1uzbkr [id number] 3iw417 2021-10-24 2021-10-24 Outpatient R RADIOLOGY [facility] [id number] Univers 07:29:35 23:59:00 ity [facility] 2021-10-24 2021-10-24 Hospital Radiology [facility] 1.2.840.114 [id number] Univers 07:29:35 23:59:00 Encounter HEALTH 350.1.13.10 [place] [phone] [facility] [address] ([facility]) 2021-10-24 2021-10-24 Hospital Radiology [facility] 1.2.840.114 [id number] Univers 07:28:55 07:28:55 Encounter HEALTH 350.1.13.10 [place] [id number] [facility] [address] ([facility]) 2021-10-24 2021-10-24 Hospital Radiology [facility] 1.2.840.114 [id number] Univers 07:28:21 07:28:21 Encounter HEALTH 350.1.13.10 [place] [id number] [place] [address] ([facility]) 2021-10-24 2021-10-24 Outpatient R RADIOLOGY [facility] [id number] Univers 00:00:00 00:00:00 ity of [facility] 2021-09-24 2021-09-24 Patient Doctor HEATHER 1.2.840.114 [id number] Univers 00:00:00 00:00:00 Secure Msg Unassigned, LILIAN 350.1.13.10 ity of [place] [facility] 4.2.7.2.686 Segun [phone] [facility] [address] 2021-09-23 2021-09-23 Emergency X BETITO MOLUCIANA ERT [id number] Univers 13:12:00 18:47:00 TIMOTEO ity of [facility] 2021-09-23 2021-09-23 Emergency Betito [facility] 1.2.745.669 [id number] Univers 13:12:00 18:47:00 Timoteo JEREZ 350.1.13.10 i ty of [place] 4.2.7.2.686 [facility] [id number] [place] [address] [place] 2021-09-23 2021-09-23 Orders Doctor HEATHER 1.2.840.114 [id number] Univers 00:00:00 00:00:00 Only Unassigned, LILIAN 350.1.13.10 ity of [place] [facility] 4.2.7.2.686 Segun as [phone] [address] 2021-01-07 2021-01-07 Patient Hortencia [facility] 1.2.369.897 [id number] Univers 00:00:00 00:00:00 Secure Msg Karen ANGLECMAELIA 350.1.13.10 [place] of [place] [phone] Mo dical NAL [address] [place] [address] 2021-01-03 2021-01-03 Outpatient R HORTENCIA [facility] [id number] Univers 15:45:00 15:45:00 KAREN shipley [facility] 2020-08-09 2020-08-09 [facility] [id number] Univers 00:00:00 00:00:00 KAREN simran [facility] 2020-06-18 2020-06-18 Outpatient R [facility] [id number] Univers 10:00:00 10:00:00 ity [facility] 2020-06-15 2020-06-15 Patient DongJesse [facility] 1.2.455.477 [id number] Univers 00:00:00 00:00:00 Secure Msg Glen JEREZ 350.1.13.10 [place] [phone] Mo dical NAL [address] [place] [address] 2020-05-23 2020-05-23 Outpatient [facility] [id number] Univers 14:45:00 14:45:[address] 2020-05-17 2020-05-17 Patient Doctor [facility] 1.2.840.114 [id number] Univers 00:00:00 00:00:00 Secure Msg Unassigned, [place] 350.1.13.10 ity of [place] [id number] Mo dical NAL [address] [place] [address] 2020-05-15 2020-05-15 Outpatient R [facility] [id number] Univers 13:00:00 13:00:00 ity [facility] 2020-05-11 2020-05-11 Outpatient R [facility] [id number] Univers 13:30:00 13:30:00 ity [facility] 2020-05-09 2020-05-09 Outpatient R HOTRENCIA, [facility] [id number] Univers 10:30:00 10:30:[address] [facility] 2020-04-13 2020-04-13 Patient Doctor BAM 1.2.840.114 [id number] Univers 00:00:00 00:00:00 Secure Msg Unassigned, LOMAS 350.1.13.10 ity of [place] [id number] [address] 2020-04-12 2020-04-12 Patient Doctor [facility] 1.2.840.114 [id number] Univers 00:00:00 00:00:00 Secure Msg Unassigned, TRAVELER CHANGER 350.1.13.10 ity of [place] [facility] 4.2.7.2.686 Segun as MATERNAL [id number] [facility] ical & CHILD [address] [place] [address] 2020-04-11 2020-04-11 Patient Doctor HEATHER 1.2.840.114 [id number] Univers 00:00:00 00:00:00 Secure Msg Unassigned, LILIAN 350.1.13.10 ity of [place] [facility] 4.2.7.2.686 Segun as [phone] [facility] [address] 2020-04-04 2020-04-04 Outpatient R KIRK, [facility] [id number] Univers 09:45:00 09:45:00 BRYN shipley o f [facility] 2019-12-28 2019-12-28 Outpatient R VALDO, [facility] [id number] Univers 09:15:00 09:15:00 AYNICK itsimran [facility] 2019-12-28 2019-12-28 Outpatient MIKAELA_CLAUDY GUILLEN [facility] [id number] [place] 05:38:00 05:38:00 [place] [address] da Epispending [facility] 2019-12-09 2019-12-09 Outpatient JESUS DANHOP 109 [id number] [place] 09:26:00 09:26:00 [place] [address] [facility] 2019-08-04 2019-08-04 Outpatient R [facility] [id number] Univers 13:30:00 13:30:00 [facility] 2019-07-25 2019-07-25 Outpatient R AMIRA [facility] [id number] Univers 08:00:00 08:00:00 ORENUKA o f [facility] 2019-07-18 2019-07-18 Outpatient R [facility] [id number] Univers 14:00:00 14:00:00 [facility] 2019-07-18 2019-07-18 Outpatient R AMIRA [facility] [id number] Univers 10:00:00 10:00:00 ORENUKA o f [facility] 2019-07-11 2019-07-11 Outpatient R JESSE DONG [facility] [id number] Univers 15:00:00 15:00:00 [facility] 2019-06-20 2019-06-20 Outpatient R HORTENCIA, [facility] [id number] Univers 11:00:00 11:00:00 KAREN [facility] 2019-05-10 2019-05-10 Outpatient R CARL WORKMAN [facility] [id number] Univers 08:56:42 23:59:00 [facility] 2019-04-28 2019-04-28 Outpatient P EDUARDO [facility] [id number] Univers 14:00:00 14:00:00 AMNA [facility] 2019-04-18 2019-04-18 Outpatient P ANNA MARIE [facility] [id number] Univers 15:00:00 16:35:19 RUSTAM [facility] 2019-04-14 2019-04-14 Outpatient P ISRAEL PEREZ [facility] [id number] Univers 15:30:00 16:09:05 ISRAEL PEREZ [facility] 2019-04-07 2019-04-07 Outpatient P DEBORAH [facility] [id number] Univers 09:30:00 14:57:02 LENNOX [facility] 2019-01-27 2019-01-27 Outpatient P ANNA MARIE [facility] [id number] Univers 15:00:00 15:00:00 RUSTAM [facility] 2019-01-26 2019-01-26 Outpatient P TAMIKO [facility] [id number] Univers 14:30:00 14:25:24 AZEB [facility] 2018-12-30 2018-12-30 Outpatient P EDUARDO [facility] [id number] Univers 10:00:00 11:14:24 AMNA [facility] 2018-12-29 2018-12-29 Outpatient P BELEN [facility] [id number] Univers 10:45:00 10:45:00 NISH [facility] Results Test Description Test Time Test Comments Results Result Comments Source HERPES SIMPLEX AB, IgM 2023-01-08 20:04:09 Test Item Value Reference Range Interpretation Comme nts HERPES SIMPLEX AB, IgM 1.03 INDEX SEE BELOW H FOR EQUIVOCAL HSV IgM, CONSIDER (test code = 19580) RECOLLEC TION AND RETESTING IgM IN 10-14 [...] COMPARISON TO ACUTE OR CONVAL ESCENT TYPE-SPECIFIC [id number] HSV2 Ig G ASSAYS SHOULD BE CONSIDERED. INT ERPRETATION UNITS RANGE --------- ----- ----- ----- NEGATIVE INDEX <=0.89 EQUIVOCAL INDEX 0.90-1.09 POSITIVE INDEX >=1.10 PAP TEST, THINPREP, [id number] 14:19:03 Test Item Value Reference Range Interpretation Comments SOURCE: (test Cervical/Endo code = 8001) cervical SLIDES: (test 1 code = 8011) LMP: (test code = 12/26/2022 8021) SPECIMEN (NOTE) Satisfactory f or ADEQUACY: (test evaluation. Endocervical code = 13141) cells/transfor mation zone component not identified. INTERPRETATION: NILM/NO (test code = EPITH. --------- 43466) ABNORMALITY;S -------- EE BELOW NEGATIVE FO R INTRAEPITHELIAL LESION OR MALIGNANCY ( NILM) --------- --------- --------- - OTHER COMMENTS: (NOTE) Shift in heather ra (test code = suggestive of b acterial 8081) vaginosis. ENVIRONMENTAL SPECIALIST: Devora Menezes, (test code = CT (ASCP) 8101) LOCATION: (test (NOTE) Specimens pr ocessed and code = 54654) [facility], [address] [place] [address], [place] [address], , CLIA: [id number] CPT: (test code = (NOTE) 46001 UNLE SS OTHERWISE 8140) INDICATED, COMP UTER [...] or consolidated pr ior Pap history is arturoai beatriz as applicable. HPV HIGH RISK WITH GENOTYPE, [id number] 14:13:14 Test Item Value Reference Range Interpretation Comments HPV HIGH RISK INTERP NEGATIVE NEGATIVE (test code = 21929) HPV 16 (test code = NEGATIVE 32285) HPV 18 (test code = NEGATIVE 26980) HPV, HR, OTHER NEGATIVE Testing meth odology is GENOTYPES (test code real-ti me PCR utilizing = 06206) hydrolysis prob es with the Kaiden Jenniffer [...] INDIC ATED, ALL TESTING PERFORM ED AT CLINICAL PATHOL [facility], [address] [address] LABORATORY DIR BRITNI: CYNDEE GRIGSBY M.D. CLIA NUMBER [id number] [facility] [place]. [id number] VAGINAL PATHOGENS DNA [id number] 13:04:06 Test Item Value Reference Range Interpretation [...] Trichomonas vag inalis nucleic acid. CT/NG, NAAT, [id number] 11:41:28 Test Item Value Reference Range Interpretation Comments CHLAMYDIA, NAAT, NEGATIVE NEGATIVE A negative result does THINPREP (test code not excl ude low level = 55210) infection, specimensamplin g error, or collection erro r. Testing is performed wi th the Kaiden Jenniffer 680 systems usingre al-time Polymerase Josue n Reaction (PCR) method. GONORRHEA, NAAT, NEGATIVE NEGATIVE A negative result does THINPREP (test code not excl ude low level = 90623) infection, specimensamplin g error, or collection erro r. Testing is performed wi th the Kaiden Jenniffer 680 systems usingre al-time Polymerase Josue n Reaction (PCR) method. [id number] 05:38:12 Test Item Value Reference Range Interpretation Comments RPR RESULT (test code = NON-REACTIVE NON-REACTIVE 3501) RPR TITER (test code = 3500) NOT INDIC. TITER NOT INDIC. HIV 1/2 4TH GEN, RFLX [id number] 04:19:13 Test Item Value Reference Range Interpretation Comments HIV 1/2 4TH GEN, RFLX CONF (test NON-REACTIVE NON-REACTIVE code = 3514) HEPATITIS PANEL, [id number] 04:19:13 Test Item Value Reference Range Interpretation Comments HEPATITIS A IgM (test NON-REACTIVE NON-REACTIVE code = 00233) HEPATITIS B CORE IgM NON-REACTIVE NON-REACTIVE (test code = 4644) HEPATITIS B SURF AG NON-REACTIVE NON-REACTIVE (test code = 2739) HEPATITIS C ANTIBODY NON-REACTIVE NON-REACTIVE (test code = 4675) INTERPRETATION (NOTE) Hepatitis A HEPATITIS A: (test code sero logy shows no = 2552) evidence of acu te hepatitis A. INTERPRETATION (NOTE) Hepatitis B HEPATITIS B: (test code sero logy shows no = 12911) evidence of acu te hepatitis B and no indication of exposure to hepatitis B vir us in the previous kiko eight months. INTERPRETATION (NOTE) Hepatitis C HEPATITIS C: (test code sero logy shows no = 59307) evidence of exposure to hepatitisC viru s at this time. I t can take up to 12 months after exposure tothe hepatitis C vir us for antibodies to become detectab le in the blood in certain patient s. HERPES SIMPLEX 1/2 AB, IgG [id number] 04:19:13 Test Item Value Reference Range Interpretation Comments HERPES SIMPLEX 1 11.900 INDEX SEE BELOW H INTERPRETA TION UNITS AB, IgG (test RANGE -------- ------ code = 60340) ----- ----- NO N-REACTIVE INDEX <1.000 RE ACTIVE INDEX >=1.00 0 HERPES SIMPLEX 2 21.200 INDEX SEE BELOW H INTERPRETA TION UNITS AB, IgG (test RANGE -------- ------ code = 52027) ----- ----- NO N-REACTIVE INDEX <1.000 RE ACTIVE INDEX >=1.00 0 UNLESS OTHERWISE INDIC ATED, ALL TESTING PERFORM ED AT CLINICAL PATHOL [facility] [employer], [facility]. [address] [place] [address] LABORATORY DIRE CTOR: CYNDEE GRIGSBY M.D. CLIA NUMBER [id number] [facility] [id number] PAP TEST, THINPREP, [id number] 12:31:46 Test Item Value Reference Range Interpretation Comments SOURCE: (test Cervical code = 8001) SLIDES: (test 1 code = 8011) LMP: (test code NOT GIVEN = 8021) SPECIMEN (NOTE) Satisfactory f or ADEQUACY: (test evaluation. code = 01031) Endocervical cells/transform ation zone component present. INTERPRETATION: NILM/NO EPITH. (test code = ABNORMALITY;SEE 29765) BELOW -------- - NEGATIVE FOR INTRAEPITHELIAL LESION OR MALIGNANCY ( NILM) -------- -------- -------- ---- ENVIRONMENTAL SPECIALIST Devora Menezes CT : (test code = (ASCP) 8101) LOCATION: (test (NOTE) Specimens pr ocessed and code = 75574) [facility], [address] [place] [address] [phone], Phone: , CLIA: [id number] CPT: (test code (NOTE) 05022 UNLESS OTHERWISE = 8140) INDICATED, COMP UTER [...] Pap history is avai labroberto as applicable. HPV HIGH RISK WITH GENOTYPE, [id number] 12:26:32 Test Item Value Reference Range Interpretation Comments HPV HIGH RISK INTERP NEGATIVE NEGATIVE (test code = 95359) HPV 16 (test code = NEGATIVE 33011) HPV 18 (test code = NEGATIVE 38257) HPV, HR, OTHER NEGATIVE Testing meth odology is GENOTYPES (test code real-ti me PCR utilizing = 05970) hydrolysis prob es with the Kaiden Jenniffer [...] ATED, ALL TESTING PERFORM ED [facility] [place] [address] LABORATORY DIRE CTOR: TERRI GARDNER M.D. CLIA NUMBER [id number] [facility] [place] [id number] [place]/NG, NAAT, [id number] 17:17:22 Test Item Value Reference Range Interpretation Comments CHLAMYDIA, NAAT, NEGATIVE NEGATIVE A negative result does THINPREP (test code not excl ude low level = 14771) infection, specimensamplin g error, or collection erro r. Testing is performed wi the [employer] 680 systems usingre al-time Polymerase Josue n Reaction (PCR) method. GONORRHEA, NAAT, NEGATIVE NEGATIVE A negative result does THINPREP (test code not excl ude low level = 85537) infection, specimensamplin g error, or collection erro r. Testing is performed wi the [employer] systems usingre al-time Polymerase Josue n Reaction (PCR) method. VAGINAL PATHOGENS DNA [id number] 12:33:41 Test Item Value Reference Range Interpretation [...] nucleic acid. HIV 1/2 4TH GEN, RFLX [id number] 03:14:00 Test Item Value Reference Range Interpretation Comments HIV 1/2 4TH GEN, RFLX CONF (test NON-REACTIVE NON-REACTIVE code = 3514) HEPATITIS PANEL, [id number] 03:14:00 Test Item Value Reference Range Interpretation Comments HEPATITIS A IgM (test NON-REACTIVE NON-REACTIVE code = 02313) HEPATITIS B CORE IgM NON-REACTIVE NON-REACTIVE (test code = 4644) HEPATITIS B SURF AG NON-REACTIVE NON-REACTIVE (test code = 2739) HEPATITIS C ANTIBODY NON-REACTIVE NON-REACTIVE (test code = 4675) INTERPRETATION (NOTE) Hepatitis A HEPATITIS A: (test serology shows no code = 2552) evidence of acu te hepatitis A. INTERPRETATION (NOTE) Hepatitis B HEPATITIS B: (test serology shows no code = 71344) evidence of ac oswald hepatitis B and no indication of exposure to hepatitis B vir us in the previous si xto eight months. INTERPRETATION (NOTE) Hepatitis C HEPATITIS C: (test serology shows no code = 12493) evidence of ex posure to hepatitisC v irus at this time. I t can take up to 12 m onths after exposure tothe hepatitis C vir us for antibodies to become detectab le in the blood in ce rtain patients. UNLES S OTHERWISE INDIC ATED, ALL TESTING PERFORMED [facility], [facility]. [address] [place], [place] [id number] [place] [address] DIRECTOR: Fátima FINNEGAN NUMBER [id number] [place]. [id number] 02:43:33 Test Item Value Reference Range Interpretation Comments RPR RESULT (test code = NON-REACTIVE NON-REACTIVE 3501) RPR TITER (test code = 3500) NOT INDIC. TITER NOT INDIC. COMP. METABOLIC PANEL (58754)2021-09-23 19:42:47 Test Item Value Reference Range Interpretation Comments NA (test code = 138 mmol/L 135-145 8416705678) K (test code = 4.8 mmol/L 3.5-5.0 3607985529) CL (test code = 102 mmol/L 98-108 1013988850) CO2 TOTAL (test code 25 mmol/L 23-31 = 1089379135) AGAP (test code = 2-16 0415094838) BUN (test code = 15 mg/dL 7-23 9941942913) GLUCOSE (test code = 90 mg/dL 70-110 1617590661) CREATININE (test code 0.64 mg/dL 0.50-1.04 = 3821749791) TOTAL BILI (test code 0.8 mg/dL 0.1-1.1 = 0185590094) CALCIUM (test code = 9.9 mg/dL 8.6-10.6 9762003274) T PROTEIN (test code 7.8 g/dL 6.3-8.2 = 1184652098) ALBUMIN (test code = 5.0 g/dL 3.5-5.0 1067981779) ALK PHOS (test code = 84 U/L 34-122 1867796113) ALTv (test code = 14 U/L 5-35 1742-6) AST(SGOT) (test code 23 U/L 13-40 = 7109201721) eGFR (test code = mL/min/1.73m2 4536067599) [place] (test code = [place]) Association of [...] or urine or abnormalities in imaging tests). [facility] WITH [id number] 19:29:29 Test Item Value Reference Range Interpretation Comments WBC (test code = See_Comment [Automated 0590-2) message] The sy stem which generated this [...] RDW-SD (test code = 42.0 fL 39.0-49.9 50934-9) RDW-CV (test code = 12.1 % 12.0-15.5 788-0) PLT (test code = See_Comment [Automated 777-3) message] The sy stem which generated this result transmitted reference range : 166 - 358 10*3/ ?L. The reference r vicente was not used to interpret this result as normal/abnormal . MPV (test code = 10.0 fL 9.5-12.9 99217-3) NRBC/100 WBC (test See_Comment [Automat ed code = 1692582462) message] The system which generated this result transmitted reference range : 0.0 - 10.0 /100 WBCs. The refer ence range was not u sed to interpret th is result as normal/abnormal . NRBC x10^3 (test code <0.01 See_Comment [Auto mated = 6644320737) message] The s ystem which generated this result transmitted reference range : 10*3/?L. The reference range was not used to interpret this result as normal/abnormal . GRAN MAT (NEUT) % 65.5 % (test code = 770-8) IMM GRAN % (test code 0.40 % = 5692774794) LYMPH % (test code = 20.6 % 736-9) MONO % (test code = 10.5 % 5905-5) EOS % (test code = 2.1 % 713-8) BASO % (test code = 0.9 % 706-2) GRAN MAT x10^3(ANC) 5.61 10*3/uL 1.88-7.09 (test code = 1142653200) IMM GRAN x10^3 (test 0.03 10*3/uL 0.00-0.06 code = 8132815121) LYMPH x10^3 (test code 1.76 10*3/uL 1.32-3.29 = 731-0) MONO x10^3 (test code 0.90 10*3/uL 0.33-0.92 = 742-7) EOS x10^3 (test code = 0.18 10*3/uL 0.03-0.39 711-2) BASO x10^3 (test code 0.08 10*3/uL 0.01-0.07 H = 704-7) Lab Interpretation Abnormal (test code = 99591-7) [id number]:47[facility] Test Item Value Reference Range Interpretation Comments POCT PREG (test code = 1605) Negative On board controls acceptable with Present C Line (test code = 3574) POCT PREG LOT # (test code = 3575) [id number] POCT PREG TEST DATE (test 02-24-2023 code = 3576) Lab Interpretation (test code = Normal 66323-5) [facility] [id number] 11:20:57 Test Item Value Reference Interpretation Comments [...] abnormal code = 8205) Pap (accession # [id number]) isreviewed. The atypical cells identified on t [...] TI SSUE PIECES: multipleSUBMITT ED IN CASSETTE(S): [id number]: FormalinCOMMENT S:Entirely submitted intac t. C) SPECIMEN [...] at inical Pathology 8250) Laboratories, [address] [place], [place] [address], , CLIA: [id number] interpreted at [facility] Path[facility] DeptLaboratory, [address] [place] [id number] 5, , CLIA: [id number] DISCLAIMER (test (NOTE) IHC antibod ies are interpreted in code = 82301) the presence o f appropriatelyfu nctioning controls unless otherwis e noted. CPT: (test code (NOTE) 16225n6, 883 05x5 UNLESS OTHERWISE = 8400) INDICATED, ALL TESTING PERFORMED ATCLINICAL PATH [facility], [facility]. [address] [place], [place] [address] HABILITATION SPECIALIST: TERRI MCCRARY M.D. [place] NUMBER [id number] CAP ACCREDITATION N O. [id number] SURGICAL PATHOLOGY [id number] 00:00:00 Test Item Value Reference Range Interpretation Comments DIAGNOSIS: (test code = 8200) (NOTE) COMMENTS: (test code = 8205) (NOTE) MICROSCOPIC DESCRIPTION: (test code = (NOTE) 8210) CLINICAL DATA: (test code = 8401) (NOTE) GROSS DESCRIPTION: (test code = 8220) (NOTE) PATHOLOGIST: (test code = 8250) (NOTE) DISCLAIMER (test code = 40399) (NOTE) CPT: (test code = 8400) (NOTE) SURGICAL PATHOLOGY [id number] 00:00:00 Test Item Value Reference Range Interpretation Comments DIAGNOSIS: (test code = 8200) (NOTE) COMMENTS: (test code = 8205) (NOTE) MICROSCOPIC DESCRIPTION: (test code = (NOTE) 8210) CLINICAL DATA: (test code = 8401) (NOTE) GROSS DESCRIPTION: (test code = 8220) (NOTE) PATHOLOGIST: (test code = 8250) (NOTE) DISCLAIMER (test code = 13959) (NOTE) CPT: (test code = 8400) (NOTE) SURGICAL PATHOLOGY [id number] 00:00:00 Test Item Value Reference Range Interpretation Comments DIAGNOSIS: (test code = 8200) (NOTE) COMMENTS: (test code = 8205) (NOTE) MICROSCOPIC DESCRIPTION: (test code = (NOTE) 8210) CLINICAL DATA: (test code = 8401) (NOTE) GROSS DESCRIPTION: (test code = 8220) (NOTE) PATHOLOGIST: (test code = 8250) (NOTE) DISCLAIMER (test code = 69279) (NOTE) CPT: (test code = 8400) (NOTE) SURGICAL PATHOLOGY [id number] 00:00:00 Test Item Value Reference Range Interpretation Comments DIAGNOSIS: (test code = 8200) (NOTE) COMMENTS: (test code = 8205) (NOTE) MICROSCOPIC DESCRIPTION: (test code = (NOTE) 8210) CLINICAL DATA: (test code = 8401) (NOTE) GROSS DESCRIPTION: (test code = 8220) (NOTE) PATHOLOGIST: (test code = 8250) (NOTE) DISCLAIMER (test code = 66410) (NOTE) CPT: (test code = 8400) (NOTE) SURGICAL PATHOLOGY [id number] 00:00:00 Test Item Value Reference Range Interpretation Comments DIAGNOSIS: (test code = 8200) (NOTE) COMMENTS: (test code = 8205) (NOTE) MICROSCOPIC DESCRIPTION: (test code = (NOTE) 8210) CLINICAL DATA: (test code = 8401) (NOTE) GROSS DESCRIPTION: (test code = 8220) (NOTE) PATHOLOGIST: (test code = 8250) (NOTE) DISCLAIMER (test code = 55587) (NOTE) CPT: (test code = 8400) (NOTE) PAP TEST, THINPREP, [id number] 11:12:17 Test Item Value Reference Range Interpretation Comments SOURCE: (test code = Cervical/Endo 8001) cervical SLIDES: (test code = 1 8011) LMP: (test code = 08/05/2021 8021) SPECIMEN ADEQUACY: (NOTE) Satisfac tory for (test code = 38852) evaluati on. Endocervical cells/transform ation zone component present. INTERPRETATION: ASCUS/EPITH. A (test code = 15894) ABNORMALITY; -------- SEE BELOW ------- ---- EPITHE LIAL CELL ABNORMALIT Y Atypical squamo us cells of undete rmined significance (ASC-US)------- ------- ------- ------- OTHER COMMENTS: (NOTE) Possible richelle nges of (test code = 8081) Herpes vi eddie present. Recommend PCR orculture for confirmation. P CR may be performed on this samplewithin 21 days of collection. Please contact [facility] chris Service [phone]. ENVIRONMENTAL SPECIALIST: Miguelina Ndiaye (test code = 8101) HAYLIE Phillips(ASC P) PATHOLOGIST Dylan Holland INTERPRETATION BY: (test code = 8122) LOCATION: (test code (NOTE) Specime ns processed at = 34823) [facility], [address] [place] [address], Phone: , CLIA: [id number] interpreted at [facility] DeptLabor[facility], [address] [place] [address], , CLIA: [id number] CPT: (test code = (NOTE) 57667, 881 41 UNLESS 8140) OTHERWISE INDIC ATED, [...] Pap history is avai lable as applicable. PAP TEST, THINPREP, [id number] 00:00:00 Test Item Value Reference Range Interpretation Comments SOURCE: (test code = 8001) Cervical/Endocervic al SLIDES: (test code = 8011) 1 LMP: (test code = 8021) 08/05/2021 SPECIMEN ADEQUACY: (test (NOTE) code = 67845) INTERPRETATION: (test code ASCUS/EPITH. = 32904) ABNORMALITY; SEE BELOW OTHER COMMENTS: (test code (NOTE) = 8081) ENVIRONMENTAL SPECIALIST: (test Miguelina Ndiaye code = 8101) HAYLIE Phillips(ASCP) PATHOLOGIST INTERPRETATION Dylan Holland BY: (test code = 8122) LOCATION: (test code = (NOTE) 17418) CPT: (test code = 8140) (NOTE) PAP TEST, THINPREP, [id number] 00:00:00 Test Item Value Reference Range Interpretation Comments SOURCE: (test code = 8001) Cervical/Endocervic al SLIDES: (test code = 8011) 1 LMP: (test code = 8021) 08/05/2021 SPECIMEN ADEQUACY: (test (NOTE) code = 66662) INTERPRETATION: (test code ASCUS/EPITH. = 01694) ABNORMALITY; SEE BELOW OTHER COMMENTS: (test code (NOTE) = 8081) ENVIRONMENTAL SPECIALIST: (test Miguelina S. code = 8101) HAYLIE Phillips(ASCP) PATHOLOGIST INTERPRETATION Dylan Holland BY: (test code = 8122) LOCATION: (test code = (NOTE) 55113) CPT: (test code = 8140) (NOTE) PAP TEST, THINPREP, [id number] 00:00:00 Test Item Value Reference Range Interpretation Comments SOURCE: (test code = 8001) Cervical/Endocervic al SLIDES: (test code = 8011) 1 LMP: (test code = 8021) 08/05/2021 SPECIMEN ADEQUACY: (test (NOTE) code = 06769) INTERPRETATION: (test code ASCUS/EPITH. = 27206) ABNORMALITY; SEE BELOW OTHER COMMENTS: (test code (NOTE) = 8081) ENVIRONMENTAL SPECIALIST: (test Miguelina S. code = 8101) HAYLIE Phillips(ASCP) PATHOLOGIST INTERPRETATION Dylan Holland BY: (test code = 8122) LOCATION: (test code = (NOTE) 10536) CPT: (test code = 8140) (NOTE) PAP TEST, THINPREP, [id number] 00:00:00 Test Item Value Reference Range Interpretation Comments SOURCE: (test code = 8001) Cervical/Endocervic al SLIDES: (test code = 8011) 1 LMP: (test code = 8021) 08/05/2021 SPECIMEN ADEQUACY: (test (NOTE) code = 25878) INTERPRETATION: (test code ASCUS/EPITH. = 85736) ABNORMALITY; SEE BELOW OTHER COMMENTS: (test code (NOTE) = 8081) ENVIRONMENTAL SPECIALIST: (test Miguelina S. code = 8101) HAYLIE hPillips(ASCP) PATHOLOGIST INTERPRETATION Dylan Holland BY: (test code = 8122) LOCATION: (test code = (NOTE) 90118) CPT: (test code = 8140) (NOTE) PAP TEST, THINPREP, [id number] 00:00:00 Test Item Value Reference Range Interpretation Comments SOURCE: (test code = 8001) Cervical/Endocervic al SLIDES: (test code = 8011) 1 LMP: (test code = 8021) 08/05/2021 SPECIMEN ADEQUACY: (test (NOTE) code = 06951) INTERPRETATION: (test code ASCUS/EPITH. = 12527) ABNORMALITY; SEE BELOW OTHER COMMENTS: (test code (NOTE) = 8081) ENVIRONMENTAL SPECIALIST: (test Miguelina S. code = 8101) HAYLIE Phillips(ASCP) PATHOLOGIST INTERPRETATION Dylan Holland BY: (test code = 8122) LOCATION: (test code = (NOTE) 08698) CPT: (test code = 8140) (NOTE) CT/NG, TMA, [id number] 19:19:14 Test Item Value Reference Range Interpretation Comments GONORRHEA, TMA NEGATIVE NEGATIVE Assay method ology is (test code = nucleic acid am plification 33894) by transcriptio n mediated amplification ( TMA) utilizing the A ptima Combo 2 Assay. CHLAMYDIA, TMA NEGATIVE NEGATIVE Assay method ology is (test code = nucleic acid am plification 48970) by transcriptio n mediated amplification ( TMA) utilizing the A ptima Combo 2 Assay. HPV HIGH RISK WITH GENOTYPE, [id number] 16:29:18 Test Item Value Reference Range Interpretation Comments HPV HIGH RISK INTERP POSITIVE NEGATIVE A (test code = 04408) HPV 16 (test code = NEGATIVE 42071) HPV 18 (test code = NEGATIVE 68406) HPV, HR, OTHER POSITIVE A Testing meth odology is GENOTYPES (test code real-ti me PCR utilizing = 21603) hydrolysis prob es with the [employer] 4800 system. The kezia t individually d etects genotypes 16 an d 18, as well as the oth er 12 high risk types (31,33,35,39,45 ,51,52,56 ,58,59,66,68). The expected result is negative. A neg ative result does not rule out the presence of HPV not included in the genotype set, a low leve l of infection or sp ecimen sampling error. UNLESS OTHERWISE INDIC ATED, ALL TESTING PERFORM ED ATCLINICAL PATH [facility], [facility]. [address] [place] [address] LABORATORY DIRE CTOR: TERRI GARDNER M.D. CLIA NUMBER [id number] CAP ACCREDITATI ON NO. VAGINAL PATHOGENS DNA [id number] 14:49:20 Test Item Value Reference Range Interpretation Comments DWIGHT SPECIES (test NEGATIVE NEGATIVE code = ) G. VAGINALIS (test POSITIVE NEGATIVE A code = ) T. VAGINALIS (test NEGATIVE NEGATIVE UNLESS O THERWISE code = ) INDICATED, ALL TESTING PERFORMED [facility]. [address] [place], [place] [address] LABORATORY DIRE CTOR: TERRI GARDNER M.D. CLIA NUMBER [id number] CAP ACCREDITATI ON NO. HIV 1/2 4TH GEN, RFLX [id number] 05:59:23 Test Item Value Reference Range Interpretation Comments HIV 1/2 4TH GEN, RFLX CONF (test NON-REACTIVE NON-REACTIVE code = 3514) HEPATITIS PANEL, [id number] 05:59:23 Test Item Value Reference Range Interpretation Comments HEPATITIS A IgM (test NON-REACTIVE NON-REACTIVE code = 83060) HEPATITIS B CORE IgM NON-REACTIVE NON-REACTIVE (test code = 4644) HEPATITIS B SURF AG NON-REACTIVE NON-REACTIVE (test code = 2739) HEPATITIS C ANTIBODY NON-REACTIVE NON-REACTIVE (test code = 4675) INTERPRETATION (NOTE) Hepatitis A HEPATITIS A: (test code sero logy shows no = 2552) evidence of acu te hepatitis A. INTERPRETATION (NOTE) Hepatitis B HEPATITIS B: (test code sero logy shows no = 94712) evidence of acu te hepatitis B and no indication of exposure to hepatitis B vir us in the previous kiko eight months. INTERPRETATION (NOTE) Hepatitis C HEPATITIS C: (test code sero logy shows no = 44554) evidence of exposure to hepatitisC viru s at this time. I t can take up to 12 months after exposure tothe hepatitis C vir us for antibodies to become detectab le in the blood in certain patient s. [id number] 05:28:14 Test Item Value Reference Range Interpretation Comments RPR RESULT (test code = NON-REACTIVE NON-REACTIVE 3501) RPR TITER (test code = 3500) NOT INDIC. TITER NOT INDIC. HIV AB/AG COMBO RFLX [id number] 00:00:00 Test Item Value Reference Range Interpretation Comments HIV 1/2 4TH GEN, RFLX CONF (test NON-REACTIVE code = 3514) GC AND CHLAMYDIA AMPLIFIED, [id number] 00:00:00 Test Item Value Reference Range Interpretation Comments GONORRHEA, TMA (test code = 36245) NEGATIVE CHLAMYDIA, TMA (test code = 42666) NEGATIVE ACUTE HEPATITIS [id number] 00:00:00 Test Item Value Reference Range Interpretation Comments HEPATITIS A IgM (test code = NON-REACTIVE 37642) HEPATITIS B CORE IgM (test code NON-REACTIVE = 4644) HEPATITIS B SURF AG (test code = NON-REACTIVE 7289) HEPATITIS C ANTIBODY (test code NON-REACTIVE = 4603) INTERPRETATION HEPATITIS A: (NOTE) (test code = 2552) INTERPRETATION HEPATITIS B: (NOTE) (test code = 09564) INTERPRETATION HEPATITIS C: (NOTE) (test code = 25496) HPV HIGH RISK WITH GENOTYPE, [id number] 00:00:00 Test Item Value Reference Range Interpretation Comments HPV HIGH RISK INTERP (test code = POSITIVE 38507) HPV 16 (test code = 69998) NEGATIVE HPV 18 (test code = 48543) NEGATIVE HPV, HR, OTHER GENOTYPES (test code POSITIVE = 22154) [id number] 00:00:00 Test Item Value Reference Range Interpretation Comments RPR RESULT (test code = NON-REACTIVE 3501) RPR TITER (test code = 3500) NOT INDIC. TITER [id number] 00:00:00 Test Item Value Reference Range Interpretation Comments RPR RESULT (test code = NON-REACTIVE 3501) RPR TITER (test code = 3500) NOT INDIC. TITER VAGINAL PATHOGENS DNA PANEL [ADDED]2021-08-16 00:00:00 Test Item Value Reference Range Interpretation Comments DWIGHT SPECIES (test code = 47151) NEGATIVE G. VAGINALIS (test code = ) POSITIVE T. VAGINALIS (test code = 13400) NEGATIVE HIV AB/AG COMBO RFLX [id number] 00:00:00 Test Item Value Reference Range Interpretation Comments HIV 1/2 4TH GEN, RFLX CONF (test NON-REACTIVE code = 3514) GC AND CHLAMYDIA AMPLIFIED, [id number] 00:00:00 Test Item Value Reference Range Interpretation Comments GONORRHEA, TMA (test code = 57039) NEGATIVE CHLAMYDIA, TMA (test code = 70481) NEGATIVE GC AND CHLAMYDIA AMPLIFIED, [id number] 00:00:00 Test Item Value Reference Range Interpretation Comments GONORRHEA, TMA (test code = 12636) NEGATIVE CHLAMYDIA, TMA (test code = 78856) NEGATIVE HIV AB/AG COMBO RFLX [id number] 00:00:00 Test Item Value Reference Range Interpretation Comments HIV 1/2 4TH GEN, RFLX CONF (test NON-REACTIVE code = 3514) ACUTE HEPATITIS [id number] 00:00:00 Test Item Value Reference Range Interpretation Comments HEPATITIS A IgM (test code = NON-REACTIVE 21280) HEPATITIS B CORE IgM (test code NON-REACTIVE = 4644) HEPATITIS B SURF AG (test code = NON-REACTIVE 2739) HEPATITIS C ANTIBODY (test code NON-REACTIVE = 4675) INTERPRETATION HEPATITIS A: (NOTE) (test code = 2552) INTERPRETATION HEPATITIS B: (NOTE) (test code = 72870) INTERPRETATION HEPATITIS C: (NOTE) (test code = 59245) ACUTE HEPATITIS [id number] 00:00:00 Test Item Value Reference Range Interpretation Comments HEPATITIS A IgM (test code = NON-REACTIVE 18578) HEPATITIS B CORE IgM (test code NON-REACTIVE = 4644) HEPATITIS B SURF AG (test code = NON-REACTIVE 2739) HEPATITIS C ANTIBODY (test code NON-REACTIVE = 4675) INTERPRETATION HEPATITIS A: (NOTE) (test code = 2552) INTERPRETATION HEPATITIS B: (NOTE) (test code = 09178) INTERPRETATION HEPATITIS C: (NOTE) (test code = 57144) [id number] 00:00:00 Test Item Value Reference Range Interpretation Comments RPR RESULT (test code = NON-REACTIVE 3501) RPR TITER (test code = 3500) NOT INDIC. TITER HPV HIGH RISK WITH GENOTYPE, [id number] 00:00:00 Test Item Value Reference Range Interpretation Comments HPV HIGH RISK INTERP (test code = POSITIVE 66212) HPV 16 (test code = 48452) NEGATIVE HPV 18 (test code = 87622) NEGATIVE HPV, HR, OTHER GENOTYPES (test code POSITIVE = 36849) HPV HIGH RISK WITH GENOTYPE, [id number] 00:00:00 Test Item Value Reference Range Interpretation Comments HPV HIGH RISK INTERP (test code = POSITIVE 64462) HPV 16 (test code = 92962) NEGATIVE HPV 18 (test code = 07016) NEGATIVE HPV, HR, OTHER GENOTYPES (test code POSITIVE = 53838) [id number] 00:00:00 Test Item Value Reference Range Interpretation Comments RPR RESULT (test code = NON-REACTIVE 3501) RPR TITER (test code = 3500) NOT INDIC. TITER [id number] 00:00:00 Test Item Value Reference Range Interpretation Comments RPR RESULT (test code = NON-REACTIVE 3501) RPR TITER (test code = 3500) NOT INDIC. TITER VAGINAL PATHOGENS DNA PANEL [ADDED]2021-08-16 00:00:00 Test Item Value Reference Range Interpretation Comments DWIGHT SPECIES (test code = ) NEGATIVE G. VAGINALIS (test code = 47669) POSITIVE T. VAGINALIS (test code = 81341) NEGATIVE VAGINAL PATHOGENS DNA PANEL [ADDED]2021-08-16 00:00:00 Test Item Value Reference Range Interpretation Comments DWIGHT SPECIES (test code = ) NEGATIVE G. VAGINALIS (test code = ) POSITIVE T. VAGINALIS (test code = 71860) NEGATIVE HIV AB/AG COMBO RFLX [id number] 00:00:00 Test Item Value Reference Range Interpretation Comments HIV 1/2 4TH GEN, RFLX CONF (test NON-REACTIVE code = 3514) HIV AB/AG COMBO RFLX [id number] 00:00:00 Test Item Value Reference Range Interpretation Comments HIV 1/2 4TH GEN, RFLX CONF (test NON-REACTIVE code = 3514) GC AND CHLAMYDIA AMPLIFIED, [id number] 00:00:00 Test Item Value Reference Range Interpretation Comments GONORRHEA, TMA (test code = 06156) NEGATIVE CHLAMYDIA, TMA (test code = 12140) NEGATIVE GC AND CHLAMYDIA AMPLIFIED, [id number] 00:00:00 Test Item Value Reference Range Interpretation Comments GONORRHEA, TMA (test code = 02723) NEGATIVE CHLAMYDIA, TMA (test code = 69736) NEGATIVE ACUTE HEPATITIS [id number] 00:00:00 Test Item Value Reference Range Interpretation Comments HEPATITIS A IgM (test code = NON-REACTIVE 10254) HEPATITIS B CORE IgM (test code NON-REACTIVE = 4644) HEPATITIS B SURF AG (test code = NON-REACTIVE 2739) HEPATITIS C ANTIBODY (test code NON-REACTIVE = 4675) INTERPRETATION HEPATITIS A: (NOTE) (test code = 2552) INTERPRETATION HEPATITIS B: (NOTE) (test code = 66499) INTERPRETATION HEPATITIS C: (NOTE) (test code = 25642) ACUTE HEPATITIS [id number] 00:00:00 Test Item Value Reference Range Interpretation Comments HEPATITIS A IgM (test code = NON-REACTIVE 00146) HEPATITIS B CORE IgM (test code NON-REACTIVE = 4644) HEPATITIS B SURF AG (test code = NON-REACTIVE 2739) HEPATITIS C ANTIBODY (test code NON-REACTIVE = 4675) INTERPRETATION HEPATITIS A: (NOTE) (test code = 2552) INTERPRETATION HEPATITIS B: (NOTE) (test code = 92734) INTERPRETATION HEPATITIS C: (NOTE) (test code = 23531) [id number] 00:00:00 Test Item Value Reference Range Interpretation Comments RPR RESULT (test code = NON-REACTIVE 3501) RPR TITER (test code = 3500) NOT INDIC. TITER [id number] 00:00:00 Test Item Value Reference Range Interpretation Comments RPR RESULT (test code = NON-REACTIVE 3501) RPR TITER (test code = 3500) NOT INDIC. TITER HPV HIGH RISK WITH GENOTYPE, [id number] 00:00:00 Test Item Value Reference Range Interpretation Comments HPV HIGH RISK INTERP (test code = POSITIVE 62305) HPV 16 (test code = 45690) NEGATIVE HPV 18 (test code = 39602) NEGATIVE HPV, HR, OTHER GENOTYPES (test code POSITIVE = 35187) HPV HIGH RISK WITH GENOTYPE, [id number] 00:00:00 Test Item Value Reference Range Interpretation Comments HPV HIGH RISK INTERP (test code = POSITIVE 49772) HPV 16 (test code = 58697) NEGATIVE HPV 18 (test code = 74736) NEGATIVE HPV, HR, OTHER GENOTYPES (test code POSITIVE = 15868) [id number] 00:00:00 Test Item Value Reference Range Interpretation [...] = ) NEGATIVE CBC W/AUTO DIFF WITH [id number] 12:09:41 Test Item Value Reference Range Interpretation [...] RBCS 0.00 K/UL 0.00-0.11 (test code = 59574) TSH, THIRD [id number] 06:48:11 Test Item Value Reference Range Interpretation Comments TSH, THIRD 1.130 UIU/ML 0.400-4.100 UNLESS OTHERWI SE GENERATION (test INDICATED, ALL TESTING code = 2821) PERFORMED [facility] PATHOLOGY LABORATORIES, [facility]. [address] [place] [address] [facility] DIRECTOR: TERRI MCCRARY M.D. [place] NUMBER [id number] CAP ACCREDITATION N O. [id number] LIPID [id number] 06:12:16 Test Item Value Reference Range Interpretation [...] <3.22 (test code = 2238) COMPREHENSIVE METABOLIC [id number] 06:12:16 Test Item Value Reference Range Interpretation Comments GLUCOSE (test code = 89 MG/DL 70-99 2216) BUN (test code = 12 MG/DL 6-20 2207) CREATININE (test 0.52 MG/DL 0.60-1.30 L code = 2214) eGFR (2020 CKD-EPI) 127 >60 (test code = 81376) ML/MIN/1.73 CALC BUN/CREAT (test 23 RATIO 6-28 code = 223) SODIUM (test code = 138 MEQ/L 026-530 1890) POTASSIUM (test code 4.0 MEQ/L 3.5-5.4 = [...] message] (test code = 2206) The syste [employer] which generated this result transmit damon reference range : <=1.2. The refe rence range was not u sed to interpret th is result as normal/abnormal . ALKALINE PHOSPHATASE 99 U/L 40-114 (test code = 2203) AST (test code = 17 U/L 9-40 2217) ALT (test code = 12 U/L 5-40 2218) CBC W/AUTO [id number] 00:00:00 Test Item Value Reference Range Interpretation [...] NUCLEATED RBCS (test code = 0.00 K/UL 68978) CBC W/AUTO [id number] 00:00:00 Test Item Value Reference Range Interpretation [...] NUCLEATED RBCS (test code = 0.00 K/UL 18593) LIPID [id number] 00:00:00 Test Item Value Reference Range Interpretation Comments CHOLESTEROL (test code = 2210) 192 MG/DL TRIGLYCERIDES (test code = 2232) 78 MG/DL HDL CHOLESTEROL (test code = 2220) 56 MG/DL CALC LDL CHOL (test code = 2237) 119 MG/DL RISK RATIO LDL/HDL (test code = 2.13 RATIO 2238) COMPREHENSIVE METABOLIC [id number] 00:00:00 Test Item Value Reference Range Interpretation Comments GLUCOSE (test code = 2217) 89 MG/DL BUN (test code = 2208) 12 MG/DL CREATININE (test code = 2214) 0.52 MG/DL eGFR (2020 CKD-EPI) (test 127 ML/MIN/1.73 code = 65911) CALC BUN/CREAT (test code = 23 RATIO [...] ALT (test code = 2219) 12 U/L [id number] 00:00:00 Test Item Value Reference Range Interpretation Comments TSH, THIRD GENERATION (test code 1.130 UIU/ML = 2821) [id number] 00:00:00 Test Item Value Reference Range Interpretation Comments TSH, THIRD GENERATION (test code 1.130 UIU/ML = 2821) CBC W/AUTO [id number] 00:00:00 Test Item Value Reference Range Interpretation [...] NUCLEATED RBCS (test code = 0.00 K/UL 80412) CBC W/AUTO [id number] 00:00:00 Test Item Value Reference Range Interpretation [...] NUCLEATED RBCS (test code = 0.00 K/UL 14581) CBC W/AUTO [id number] 00:00:00 Test Item Value Reference Range Interpretation [...] NUCLEATED RBCS (test code = 0.00 K/UL 53527) LIPID [id number] 00:00:00 Test Item Value Reference Range Interpretation Comments CHOLESTEROL (test code = 2210) 192 MG/DL TRIGLYCERIDES (test code = 2232) 78 MG/DL HDL CHOLESTEROL (test code = 2220) 56 MG/DL CALC LDL CHOL (test code = 2237) 119 MG/DL RISK RATIO LDL/HDL (test code = 2.13 RATIO 2238) LIPID [id number] 00:00:00 Test Item Value Reference Range Interpretation Comments CHOLESTEROL (test code = 2210) 192 MG/DL TRIGLYCERIDES (test code = 2232) 78 MG/DL HDL CHOLESTEROL (test code = 2220) 56 MG/DL CALC LDL CHOL (test code = 2237) 119 MG/DL RISK RATIO LDL/HDL (test code = 2.13 RATIO 2238) COMPREHENSIVE METABOLIC [id number] 00:00:00 Test Item Value Reference Range Interpretation Comments GLUCOSE (test code = 2217) 89 MG/DL BUN (test code = 2208) 12 MG/DL CREATININE (test code = 2214) 0.52 MG/DL eGFR (2020 CKD-EPI) (test 127 ML/MIN/1.73 code = 22604) CALC BUN/CREAT (test code = 23 RATIO [...] code = 2219) 12 U/L COMPREHENSIVE METABOLIC [id number] 00:00:00 Test Item Value Reference Range Interpretation Comments GLUCOSE (test code = 2217) 89 MG/DL BUN (test code = 2208) 12 MG/DL CREATININE (test code = 2214) 0.52 MG/DL eGFR (2020 CKD-EPI) (test 127 ML/MIN/1.73 code = 84313) CALC BUN/CREAT (test code = 23 RATIO [...] ALT (test code = 2219) 12 U/L [id number] 00:00:00 Test Item Value Reference Range Interpretation Comments TSH, THIRD GENERATION (test code 1.130 UIU/ML = 2821) [id number] 00:00:00 Test Item Value Reference Range Interpretation Comments TSH, THIRD GENERATION (test code 1.130 UIU/ML = 2821) [id number] 00:00:00 Test Item Value Reference Range Interpretation Comments TSH, THIRD GENERATION (test code 1.130 UIU/ML = 2821) CBC W/AUTO [id number] 00:00:00 Test Item Value Reference Range Interpretation [...] NUCLEATED RBCS (test code = 0.00 K/UL 60333) CBC W/AUTO [id number] 00:00:00 Test Item Value Reference Range Interpretation [...] NUCLEATED RBCS (test code = 0.00 K/UL 36780) CBC W/AUTO [id number] 00:00:00 Test Item Value Reference Range Interpretation [...] NUCLEATED RBCS (test code = 0.00 K/UL 41739) LIPID [id number] 00:00:00 Test Item Value Reference Range Interpretation Comments CHOLESTEROL (test code = 2210) 192 MG/DL TRIGLYCERIDES (test code = 2232) 78 MG/DL HDL CHOLESTEROL (test code = 2220) 56 MG/DL CALC LDL CHOL (test code = 2237) 119 MG/DL RISK RATIO LDL/HDL (test code = 2.13 RATIO 2238) LIPID [id number] 00:00:00 Test Item Value Reference Range Interpretation Comments CHOLESTEROL (test code = 2210) 192 MG/DL TRIGLYCERIDES (test code = 2232) 78 MG/DL HDL CHOLESTEROL (test code = 2220) 56 MG/DL CALC LDL CHOL (test code = 2237) 119 MG/DL RISK RATIO LDL/HDL (test code = 2.13 RATIO 2238) COMPREHENSIVE METABOLIC [id number] 00:00:00 Test Item Value Reference Range Interpretation Comments GLUCOSE (test code = 2217) 89 MG/DL BUN (test code = 2208) 12 MG/DL CREATININE (test code = 2214) 0.52 MG/DL eGFR (2020 CKD-EPI) (test 127 ML/MIN/1.73 code = 29208) CALC BUN/CREAT (test code = 23 RATIO [...] code = 2219) 12 U/L COMPREHENSIVE METABOLIC [id number] 00:00:00 Test Item Value Reference Range Interpretation Comments GLUCOSE (test code = 2217) 89 MG/DL BUN (test code = 2208) 12 MG/DL CREATININE (test code = 2214) 0.52 MG/DL eGFR (2020 CKD-EPI) (test 127 ML/MIN/1.73 code = 98223) CALC BUN/CREAT (test code = 23 RATIO [...] ALT (test code = 2219) 12 U/L [id number] 00:00:00 Test Item Value Reference Range Interpretation Comments TSH, THIRD GENERATION (test code 1.130 UIU/ML = 2821) [id number] 00:00:00 Test Item Value Reference Range Interpretation Comments TSH, THIRD GENERATION (test code 1.130 UIU/ML = 2821) [id number] 00:00:00 Test Item Value Reference Range Interpretation Comments TSH, THIRD GENERATION (test code 1.130 UIU/ML = 2821) SARS-CoV-2 (COVID-19) by RT-PCR (HIGH RISK)2021-02-01 00:00:00 Test Item Value Reference Range Interpretation Comments SARS-CoV-2 INTERPRETATION (test NEGATIVE code = 90826) SOURCE (test code = 19533) NOT SPECIFIED SARS-CoV-2 (COVID-19) by RT-PCR (HIGH RISK)2021-02-01 00:00:00 Test Item Value Reference Range Interpretation Comments SARS-CoV-2 INTERPRETATION (test NEGATIVE code = 06841) SOURCE (test code = 89371) NOT SPECIFIED SARS-CoV-2 (COVID-19) by RT-PCR (HIGH RISK)2021-02-01 00:00:00 Test Item Value Reference Range Interpretation Comments SARS-CoV-2 INTERPRETATION (test NEGATIVE code = 60284) SOURCE (test code = 67106) NOT SPECIFIED SARS-CoV-2 (COVID-19) by RT-PCR (HIGH RISK)2021-02-01 00:00:00 Test Item Value Reference Range Interpretation Comments SARS-CoV-2 INTERPRETATION (test NEGATIVE code = 34192) SOURCE (test code = 02584) NOT SPECIFIED SARS-CoV-2 (COVID-19) by RT-PCR (HIGH RISK)2021-02-01 00:00:00 Test Item Value Reference Range Interpretation Comments SARS-CoV-2 INTERPRETATION (test NEGATIVE code = 76397) SOURCE (test code = 27705) NOT SPECIFIED CBC W/AUTO [id number] 00:00:00 Test Item Value Reference Range Interpretation [...] code = 1015) 280 K/UL CBC W/AUTO [id number] 00:00:00 Test Item Value Reference Range Interpretation [...] code = 1015) 280 K/UL COMPREHENSIVE METABOLIC [id number] 00:00:00 Test Item Value Reference Range Interpretation Comments GLUCOSE (test code = 2217) 112 MG/DL BUN (test code = 2208) 14 MG/DL CREATININE (test code = 2214) 0.90 MG/DL eGFR AMER. (test code 99 ML/MIN/1.73 = 09838) eGFR NON- AMER. (test 85 ML/MIN/1.73 code = 90195) CALC BUN/CREAT (test code = 16 RATIO [...] ALT (test code = 2219) 22 U/L [id number] 00:00:00 Test Item Value Reference Range Interpretation Comments TSH, THIRD GENERATION (test code 1.640 UIU/ML = 2821) [id number] 00:00:00 Test Item Value Reference Range Interpretation Comments TSH, THIRD GENERATION (test code 1.640 UIU/ML = 2821) TRICHOMONAS, URINE, [id number] 00:00:00 Test Item Value Reference Range Interpretation Comments TRICHOMONAS, NAAT (test code = NEGATIVE 16231) CBC W/AUTO [id number] 00:00:00 Test Item Value Reference Range Interpretation [...] code = 1015) 280 K/UL CBC W/AUTO [id number] 00:00:00 Test Item Value Reference Range Interpretation [...] code = 1015) 280 K/UL CBC W/AUTO [id number] 00:00:00 Test Item Value Reference Range Interpretation [...] code = 1015) 280 K/UL COMPREHENSIVE METABOLIC [id number] 00:00:00 Test Item Value Reference Range Interpretation Comments GLUCOSE (test code = 2217) 112 MG/DL BUN (test code = 2208) 14 MG/DL CREATININE (test code = 2214) 0.90 MG/DL eGFR AMER. (test code 99 ML/MIN/1.73 = 86990) eGFR NON- AMER. (test 85 ML/MIN/1.73 code = 92002) CALC BUN/CREAT (test code = 16 RATIO [...] code = 2219) 22 U/L COMPREHENSIVE METABOLIC [id number] 00:00:00 Test Item Value Reference Range Interpretation Comments GLUCOSE (test code = 2217) 112 MG/DL BUN (test code = 2208) 14 MG/DL CREATININE (test code = 2214) 0.90 MG/DL eGFR AMER. (test code 99 ML/MIN/1.73 = 30163) eGFR NON- AMER. (test 85 ML/MIN/1.73 code = 45402) CALC BUN/CREAT (test code = 16 RATIO [...] ALT (test code = 2219) 22 U/L [id number] 00:00:00 Test Item Value Reference Range Interpretation Comments TSH, THIRD GENERATION (test code 1.640 UIU/ML = 2821) [id number] 00:00:00 Test Item Value Reference Range Interpretation Comments TSH, THIRD GENERATION (test code 1.640 UIU/ML = 2821) [id number] 00:00:00 Test Item Value Reference Range Interpretation Comments TSH, THIRD GENERATION (test code 1.640 UIU/ML = 2821) TRICHOMONAS, URINE, [id number] 00:00:00 Test Item Value Reference Range Interpretation Comments TRICHOMONAS, NAAT (test code = NEGATIVE 50449) TRICHOMONAS, URINE, [id number] 00:00:00 Test Item Value Reference Range Interpretation Comments TRICHOMONAS, NAAT (test code = NEGATIVE 20210) CBC W/AUTO [id number] 00:00:00 Test Item Value Reference Range Interpretation [...] code = 1015) 280 K/UL CBC W/AUTO [id number] 00:00:00 Test Item Value Reference Range Interpretation [...] code = 1015) 280 K/UL CBC W/AUTO [id number] 00:00:00 Test Item Value Reference Range Interpretation [...] code = 1015) 280 K/UL COMPREHENSIVE METABOLIC [id number] 00:00:00 Test Item Value Reference Range Interpretation Comments GLUCOSE (test code = 2217) 112 MG/DL BUN (test code = 2208) 14 MG/DL CREATININE (test code = 2214) 0.90 MG/DL eGFR AMER. (test code 99 ML/MIN/1.73 = 57319) eGFR NON- AMER. (test 85 ML/MIN/1.73 code = 63060) CALC BUN/CREAT (test code = 16 RATIO [...] code = 2219) 22 U/L COMPREHENSIVE METABOLIC [id number] 00:00:00 Test Item Value Reference Range Interpretation Comments GLUCOSE (test code = 2217) 112 MG/DL BUN (test code = 2208) 14 MG/DL CREATININE (test code = 2214) 0.90 MG/DL eGFR AMER. (test code 99 ML/MIN/1.73 = 46401) eGFR NON- AMER. (test 85 ML/MIN/1.73 code = 45432) CALC BUN/CREAT (test code = 16 RATIO [...] CALC GLOBULIN (test code = 2.5 G/DL 0) CALC A/G RATIO (test code = 2.0 RATIO 4) BILIRUBIN, TOTAL (test code = 0.3 MG/DL 2206) ALKALINE PHOSPHATASE (test 105 U/L code = 2204) AST (test code = 2218) 20 U/L ALT (test code = 2219) 22 U/L [id number] 00:00:00 Test Item Value Reference Range Interpretation Comments TSH, THIRD GENERATION (test code 1.640 UIU/ML = 2821) [id number] 00:00:00 Test Item Value Reference Range Interpretation Comments TSH, THIRD GENERATION (test code 1.640 UIU/ML = 2821) [id number] 00:00:00 Test Item Value Reference Range Interpretation Comments TSH, THIRD GENERATION (test code 1.640 UIU/ML = 2821) TRICHOMONAS, URINE, [id number] 00:00:00 Test Item Value Reference Range Interpretation Comments TRICHOMONAS, NAAT (test code = NEGATIVE 26345) TRICHOMONAS, URINE, [id number] 00:00:00 Test Item Value Reference Range Interpretation Comments TRICHOMONAS, NAAT (test code = NEGATIVE 79198) HCG, QUANTITATIVE [ADDED]2020-06-23 00:00:00 Test Item Value [...] NOTE: (test code = 998) (NOTE) CULTURE, [id number] 00:00:00 Test Item Value Reference Range Interpretation Comments CULTURE, URINE (test SPECIMEN NUMBER: code = 94397) [id number] CULTURE, [id number] 00:00:00 Test Item Value Reference Range Interpretation Comments CULTURE, URINE (test SPECIMEN NUMBER: code = 44093) [id number] CULTURE, [id number] 00:00:00 Test Item Value Reference Range Interpretation Comments CULTURE, URINE (test SPECIMEN NUMBER: code = 81404) [id number] CULTURE, [id number] 00:00:00 Test Item Value Reference Range Interpretation Comments CULTURE, URINE (test SPECIMEN NUMBER: code = 97601) [id number] CULTURE, [id number] 00:00:00 Test Item Value Reference Range Interpretation Comments CULTURE, URINE (test SPECIMEN NUMBER: code = 05196) [id number] GC AND CHLAMYDIA, AMPLIFIED, [id number] 00:00:00 Test Item Value Reference Range Interpretation Comments GONORRHEA, NAAT (test code = 16223) NEGATIVE CHLAMYDIA, NAAT (test code = 16488) NEGATIVE HIV AB/AG COMBO RFLX [id number] 00:00:00 Test Item Value Reference Range Interpretation Comments HIV 1/2 4TH GEN, RFLX CONF (test NON-REACTIVE code = 3514) RPR REFLEX TO [id number] 00:00:00 Test Item Value Reference Range Interpretation Comments RPR (test code = 84523) NON-REACTIVE RPR TITER (test code = 3500) [...] INTERPRETATION HEPATITIS B: (NOTE) (test code = 19752) INTERPRETATION HEPATITIS C: (NOTE) (test code = 41684) HEPATITIS A IgM [REFLEX]2020-06-21 00:00:00 Test Item Value Reference Range Interpretation Comments HEPATITIS A IgM (test code = NON-REACTIVE 2728) GC AND CHLAMYDIA, AMPLIFIED, [id number] 00:00:00 Test Item Value Reference Range Interpretation Comments GONORRHEA, NAAT (test code = 81827) NEGATIVE CHLAMYDIA, NAAT (test code = 64547) NEGATIVE GC AND CHLAMYDIA, AMPLIFIED, [id number] 00:00:00 Test Item Value Reference Range Interpretation Comments GONORRHEA, NAAT (test code = 62265) NEGATIVE CHLAMYDIA, NAAT (test code = 20291) NEGATIVE HIV AB/AG COMBO RFLX [id number] 00:00:00 Test Item Value Reference Range Interpretation Comments HIV 1/2 4TH GEN, RFLX CONF (test NON-REACTIVE code = 3514) HIV AB/AG COMBO RFLX [id number] 00:00:00 Test Item Value Reference Range Interpretation Comments HIV 1/2 4TH GEN, RFLX CONF (test NON-REACTIVE code = 3514) RPR REFLEX TO [id number] 00:00:00 Test Item Value Reference Range Interpretation Comments RPR (test code = 24391) NON-REACTIVE RPR TITER (test code = 3500) NOT INDIC. TITER RPR REFLEX TO [id number] 00:00:00 Test Item Value Reference Range Interpretation Comments RPR (test code = 21146) NON-REACTIVE RPR TITER (test code = 3500) [...] INTERPRETATION HEPATITIS B: (NOTE) (test code = 68013) INTERPRETATION HEPATITIS C: (NOTE) (test code = 54530) HEPATITIS PROFILE (A,B,C)2020-06-21 00:00:00 Test Item Value [...] INTERPRETATION HEPATITIS B: (NOTE) (test code = 68253) INTERPRETATION HEPATITIS C: (NOTE) (test code = 54627) HEPATITIS A IgM [REFLEX]2020-06-21 00:00:00 Test Item Value Reference Range Interpretation Comments HEPATITIS A IgM (test code = NON-REACTIVE 2728) GC AND CHLAMYDIA, AMPLIFIED, [id number] 00:00:00 Test Item Value Reference Range Interpretation Comments GONORRHEA, NAAT (test code = 88553) NEGATIVE CHLAMYDIA, NAAT (test code = 69357) NEGATIVE GC AND CHLAMYDIA, AMPLIFIED, [id number] 00:00:00 Test Item Value Reference Range Interpretation Comments GONORRHEA, NAAT (test code = 19383) NEGATIVE CHLAMYDIA, NAAT (test code = 95387) NEGATIVE HIV AB/AG COMBO RFLX [id number] 00:00:00 Test Item Value Reference Range Interpretation Comments HIV 1/2 4TH GEN, RFLX CONF (test NON-REACTIVE code = 3514) HIV AB/AG COMBO RFLX [id number] 00:00:00 Test Item Value Reference Range Interpretation Comments HIV 1/2 4TH GEN, RFLX CONF (test NON-REACTIVE code = 3514) RPR REFLEX TO [id number] 00:00:00 Test Item Value Reference Range Interpretation Comments RPR (test code = 43144) NON-REACTIVE RPR TITER (test code = 3500) NOT INDIC. TITER RPR REFLEX TO [id number] 00:00:00 Test Item Value Reference Range Interpretation Comments RPR (test code = 71990) NON-REACTIVE RPR TITER (test code = 3500) [...] INTERPRETATION HEPATITIS B: (NOTE) (test code = 40859) INTERPRETATION HEPATITIS C: (NOTE) (test code = 29342) HEPATITIS PROFILE (A,B,C)2020-06-21 00:00:00 Test Item Value Reference Range Interpretation Comments HEPATITIS A TOTAL AB (test code REACTIVE = 2725) HEPATITIS B SURF AG (test code = NON-REACTIVE 9) HEP B CORE TOTAL AB (test code = NON-REACTIVE 2729) HEPATITIS B SURFACE AB (test REACTIVE code = 2737) HEPATITIS C ANTIBODY (test code NON-REACTIVE = 4675) INTERPRETATION HEPATITIS A: (NOTE) (test code = 2552) INTERPRETATION HEPATITIS B: (NOTE) (test code = 15219) INTERPRETATION HEPATITIS C: (NOTE) (test code = 19153) HEPATITIS A IgM [REFLEX]2020-06-21 00:00:00 Test Item Value Reference Range Interpretation Comments HEPATITIS A IgM (test code = NON-REACTIVE 2727) VAGINAL PATHOGENS DNA [id number] 00:00:00 Test Item Value Reference Range Interpretation Comments DWIGHT SPECIES (test code = ) NEGATIVE G. VAGINALIS (test code = ) POSITIVE T. VAGINALIS (test code = ) NEGATIVE HIV AB/AG COMBO RFLX [id number] 00:00:00 Test Item Value Reference Range Interpretation Comments HIV 1/2 4TH GEN, RFLX CONF (test NON-REACTIVE code = 3514) [id number] 00:00:00 Test Item Value Reference Range Interpretation Comments RPR RESULT (test code = NON-REACTIVE 3501) RPR TITER (test code = 3500) NOT INDIC. TITER [id number] 00:00:00 Test Item Value Reference Range Interpretation Comments RPR RESULT (test code = NON-REACTIVE 3501) RPR TITER (test code = 3500) NOT INDIC. TITER GC AND CHLAMYDIA, AMPLIFIED, [id number] 00:00:00 Test Item Value Reference Range Interpretation Comments GONORRHEA, NAAT (test code = 08863) NEGATIVE CHLAMYDIA, NAAT (test code = 65394) NEGATIVE VAGINAL PATHOGENS DNA [id number] 00:00:00 Test Item Value Reference Range Interpretation Comments DWIGHT SPECIES (test code = ) NEGATIVE G. VAGINALIS (test code = 36187) POSITIVE T. VAGINALIS (test code = 67040) NEGATIVE VAGINAL PATHOGENS DNA [id number] 00:00:00 Test Item Value Reference Range Interpretation Comments DWIGHT SPECIES (test code = ) NEGATIVE G. VAGINALIS (test code = 98186) POSITIVE T. VAGINALIS (test code = 26113) NEGATIVE HIV AB/AG COMBO RFLX [id number] 00:00:00 Test Item Value Reference Range Interpretation Comments HIV 1/2 4TH GEN, RFLX CONF (test NON-REACTIVE code = 3514) HIV AB/AG COMBO RFLX [id number] 00:00:00 Test Item Value Reference Range Interpretation Comments HIV 1/2 4TH GEN, RFLX CONF (test NON-REACTIVE code = 3514) [id number] 00:00:00 Test Item Value Reference Range Interpretation Comments RPR RESULT (test code = NON-REACTIVE 3501) RPR TITER (test code = 3500) NOT INDIC. TITER [id number] 00:00:00 Test Item Value Reference Range Interpretation Comments RPR RESULT (test code = NON-REACTIVE 3501) RPR TITER (test code = 3500) NOT INDIC. TITER [id number] 00:00:00 Test Item Value Reference Range Interpretation Comments RPR RESULT (test code = NON-REACTIVE 3501) RPR TITER (test code = 3500) NOT INDIC. TITER GC AND CHLAMYDIA, AMPLIFIED, [id number] 00:00:00 Test Item Value Reference Range Interpretation Comments GONORRHEA, NAAT (test code = 74761) NEGATIVE CHLAMYDIA, NAAT (test code = 33203) NEGATIVE GC AND CHLAMYDIA, AMPLIFIED, [id number] 00:00:00 Test Item Value Reference Range Interpretation Comments GONORRHEA, NAAT (test code = 52905) NEGATIVE CHLAMYDIA, NAAT (test code = 23267) NEGATIVE VAGINAL PATHOGENS DNA [id number] 00:00:00 Test Item Value Reference Range Interpretation Comments DWIGHT SPECIES (test code = 81529) NEGATIVE G. VAGINALIS (test code = 37068) POSITIVE T. VAGINALIS (test code = 77173) NEGATIVE VAGINAL PATHOGENS DNA [id number] 00:00:00 Test Item Value Reference Range Interpretation Comments DWIGHT SPECIES (test code = 02342) NEGATIVE G. VAGINALIS (test code = 15228) POSITIVE T. VAGINALIS (test code = 95520) NEGATIVE HIV AB/AG COMBO RFLX [id number] 00:00:00 Test Item Value Reference Range Interpretation Comments HIV 1/2 4TH GEN, RFLX CONF (test NON-REACTIVE code = 3514) HIV AB/AG COMBO RFLX [id number] 00:00:00 Test Item Value Reference Range Interpretation Comments HIV 1/2 4TH GEN, RFLX CONF (test NON-REACTIVE code = 3514) [id number] 00:00:00 Test Item Value Reference Range Interpretation Comments RPR RESULT (test code = NON-REACTIVE 3501) RPR TITER (test code = 3500) NOT INDIC. TITER [id number] 00:00:00 Test Item Value Reference Range Interpretation Comments RPR RESULT (test code = NON-REACTIVE 3501) RPR TITER (test code = 3500) NOT INDIC. TITER [id number] 00:00:00 Test Item Value Reference Range Interpretation Comments RPR RESULT (test code = NON-REACTIVE 3501) RPR TITER (test code = 3500) NOT INDIC. TITER GC AND CHLAMYDIA, AMPLIFIED, [id number] 00:00:00 Test Item Value Reference Range Interpretation Comments GONORRHEA, NAAT (test code = 98305) NEGATIVE CHLAMYDIA, NAAT (test code = 64220) NEGATIVE GC AND CHLAMYDIA, AMPLIFIED, [id number] 00:00:00 Test Item Value Reference Range Interpretation Comments GONORRHEA, NAAT (test code = 68227) NEGATIVE CHLAMYDIA, NAAT (test code = 83215) NEGATIVE GC AND CHLAMYDIA, AMPLIFIED, [id number] 00:00:00 Test Item Value Reference Range Interpretation Comments GONORRHEA, TMA (test code = 55490) NEGATIVE CHLAMYDIA, TMA (test code = 74908) NEGATIVE GC AND CHLAMYDIA, AMPLIFIED, [id number] 00:00:00 Test Item Value Reference Range Interpretation Comments GONORRHEA, TMA (test code = 97092) NEGATIVE CHLAMYDIA, TMA (test code = 95489) NEGATIVE GC AND CHLAMYDIA, AMPLIFIED, [id number] 00:00:00 Test Item Value Reference Range Interpretation Comments GONORRHEA, TMA (test code = 22564) NEGATIVE CHLAMYDIA, TMA (test code = 82126) NEGATIVE GC AND CHLAMYDIA, AMPLIFIED, [id number] 00:00:00 Test Item Value Reference Range Interpretation Comments GONORRHEA, TMA (test code = 37261) NEGATIVE CHLAMYDIA, TMA (test code = 55562) NEGATIVE GC AND CHLAMYDIA, AMPLIFIED, [id number] 00:00:00 Test Item Value Reference Range Interpretation Comments GONORRHEA, TMA (test code = 44101) NEGATIVE CHLAMYDIA, TMA (test code = 88093) NEGATIVE GC AND CHLAMYDIA AMPLIFIED, [id number] 00:00:00 Test Item Value Reference Range Interpretation Comments GONORRHEA, TMA (test code TEST NOT PERFORMED = 79620) CHLAMYDIA, TMA (test code TEST NOT PERFORMED = 41146) PAP TEST, THINPREP, [id number] 00:00:00 Test Item Value Reference Range Interpretation Comments SOURCE: (test code = Cervical/Endocervical 8001) SLIDES: (test code = 1 8011) LMP: (test code = 8021) 08/19/2018 SPECIMEN ADEQUACY: (test (NOTE) code = 52021) INTERPRETATION: (test NILM/NO EPITH. code = 85234) ABNORMALITY;SEE BELOW ENVIRONMENTAL SPECIALIST: (test RUSSELL code = 8101) [facility](ASCP)IAC LOCATION: (test code = (NOTE) 16846) CPT: (test code = 8140) (NOTE) PAP TEST, THINPREP, [id number] 00:00:00 Test Item Value Reference Range Interpretation Comments SOURCE: (test code = Cervical/Endocervical 8001) SLIDES: (test code = 1 8011) LMP: (test code = 8021) 08/19/2018 SPECIMEN ADEQUACY: (test (NOTE) code = 29663) INTERPRETATION: (test NILM/NO EPITH. code = 49567) ABNORMALITY;SEE BELOW ENVIRONMENTAL SPECIALIST: (test RUSSELL code = 8101) HAYLIE MASON(ASCP)IAC LOCATION: (test code = (NOTE) 93203) CPT: (test code = 8140) (NOTE) GC AND CHLAMYDIA AMPLIFIED, [id number] 00:00:00 Test Item Value Reference Range Interpretation Comments GONORRHEA, TMA (test code TEST NOT PERFORMED = 16324) CHLAMYDIA, TMA (test code TEST NOT PERFORMED = 56249) GC AND CHLAMYDIA AMPLIFIED, [id number] 00:00:00 Test Item Value Reference Range Interpretation Comments GONORRHEA, TMA (test code TEST NOT PERFORMED = 88245) CHLAMYDIA, TMA (test code TEST NOT PERFORMED = 33012) PAP TEST, THINPREP, [id number] 00:00:00 Test Item Value Reference Range Interpretation Comments SOURCE: (test code = Cervical/Endocervical 8001) SLIDES: (test code = 1 8011) LMP: (test code = 8021) 08/19/2018 SPECIMEN ADEQUACY: (test (NOTE) code = 34455) INTERPRETATION: (test NILM/NO EPITH. code = 04546) ABNORMALITY;SEE BELOW ENVIRONMENTAL SPECIALIST: (test RUSSELL code = 8101) PARCHER,CT(ASCP)IAC LOCATION: (test code = (NOTE) 42445) CPT: (test code = 8140) (NOTE) GC AND CHLAMYDIA AMPLIFIED, [id number] 00:00:00 Test Item Value Reference Range Interpretation Comments GONORRHEA, TMA (test code TEST NOT PERFORMED = 34023) CHLAMYDIA, TMA (test code TEST NOT PERFORMED = 66149) PAP TEST, THINPREP, [id number] 00:00:00 Test Item Value Reference Range Interpretation Comments SOURCE: (test code = Cervical/Endocervical 8001) SLIDES: (test code = 1 8011) LMP: (test code = 8021) 08/19/2018 SPECIMEN ADEQUACY: (test (NOTE) code = 26991) INTERPRETATION: (test NILM/NO EPITH. code = 68992) ABNORMALITY;SEE BELOW ENVIRONMENTAL SPECIALIST: (test RUSSELL code = 8101) ISABELLACT(ASCP)IAC LOCATION: (test code = (NOTE) 88744) CPT: (test code = 8140) (NOTE) PAP TEST, THINPREP, [id number] 00:00:00 Test Item Value Reference Range Interpretation Comments SOURCE: (test code = Cervical/Endocervical 8001) SLIDES: (test code = 1 8011) LMP: (test code = 8021) 08/19/2018 SPECIMEN ADEQUACY: (test (NOTE) code = 20397) INTERPRETATION: (test NILM/NO EPITH. code = 35590) ABNORMALITY;SEE BELOW ENVIRONMENTAL SPECIALIST: (test RUSSELL code = 8101) PARCHER,CT(ASCP)IAC LOCATION: (test code = (NOTE) 83962) CPT: (test code = 8140) (NOTE) GC AND CHLAMYDIA AMPLIFIED, [id number] 00:00:00 Test Item Value Reference Range Interpretation Comments GONORRHEA, TMA (test code TEST NOT PERFORMED = 16125) CHLAMYDIA, TMA (test code TEST NOT PERFORMED = 38390) [id number] 00:00:00 Test Item Value Reference Range Interpretation Comments RPR RESULT (test code = NON-REACTIVE 3501) RPR TITER (test code = 3500) NOT INDIC. TITER [id number] 00:00:00 Test Item Value Reference Range Interpretation Comments RPR RESULT (test code = NON-REACTIVE 3501) RPR TITER (test code = 3500) NOT INDIC. TITER HIV AB/AG COMBO RFLX [id number] 00:00:00 Test Item Value Reference Range Interpretation Comments HIV 1/2 4TH GEN, RFLX CONF (test NON-REACTIVE code = 3514) HPV HIGH RISK WITH GENOTYPE, [id number] 00:00:00 Test Item Value Reference Range Interpretation Comments HPV HIGH RISK INTERP (test code = NEGATIVE 23585) HPV 16 (test code = 81135) NEGATIVE HPV 18 (test code = 93272) NEGATIVE HPV, HR, OTHER GENOTYPES (test code NEGATIVE = 55763) ACUTE HEPATITIS [id number] 00:00:00 Test Item Value Reference Range Interpretation Comments HEPATITIS A IgM (test code = NON-REACTIVE 02828) HEPATITIS B CORE IgM (test code NON-REACTIVE = 4644) HEPATITIS B SURF AG (test code = NON-REACTIVE 2739) HEPATITIS C ANTIBODY (test code NON-REACTIVE = 4675) HCV INDEX (test code = 71957) 0.11 INTERPRETATION HEPATITIS A: (NOTE) (test code = 2552) INTERPRETATION HEPATITIS B: (NOTE) (test code = 50698) INTERPRETATION HEPATITIS C: (NOTE) (test code = 19020) [id number] 00:00:00 Test Item Value Reference Range Interpretation Comments RPR RESULT (test code = NON-REACTIVE 3501) RPR TITER (test code = 3500) NOT INDIC. TITER [id number] 00:00:00 Test Item Value Reference Range Interpretation Comments RPR RESULT (test code = NON-REACTIVE 3501) RPR TITER (test code = 3500) NOT INDIC. TITER [id number] 00:00:00 Test Item Value Reference Range Interpretation Comments RPR RESULT (test code = NON-REACTIVE 3501) RPR TITER (test code = 3500) NOT INDIC. TITER HIV AB/AG COMBO RFLX [id number] 00:00:00 Test Item Value Reference Range Interpretation Comments HIV 1/2 4TH GEN, RFLX CONF (test NON-REACTIVE code = 3514) HIV AB/AG COMBO RFLX [id number] 00:00:00 Test Item Value Reference Range Interpretation Comments HIV 1/2 4TH GEN, RFLX CONF (test NON-REACTIVE code = 3514) HPV HIGH RISK WITH GENOTYPE, [id number] 00:00:00 Test Item Value Reference Range Interpretation Comments HPV HIGH RISK INTERP (test code = NEGATIVE 57584) HPV 16 (test code = 28256) NEGATIVE HPV 18 (test code = 06215) NEGATIVE HPV, HR, OTHER GENOTYPES (test code NEGATIVE = 87043) HPV HIGH RISK WITH GENOTYPE, [id number] 00:00:00 Test Item Value Reference Range Interpretation Comments HPV HIGH RISK INTERP (test code = NEGATIVE 35071) HPV 16 (test code = 22958) NEGATIVE HPV 18 (test code = 15145) NEGATIVE HPV, HR, OTHER GENOTYPES (test code NEGATIVE = 83817) ACUTE HEPATITIS [id number] 00:00:00 Test Item Value Reference Range Interpretation Comments HEPATITIS A IgM (test code = NON-REACTIVE 24744) HEPATITIS B CORE IgM (test code NON-REACTIVE = 4644) HEPATITIS B SURF AG (test code = NON-REACTIVE 2739) HEPATITIS C ANTIBODY (test code NON-REACTIVE = 4675) HCV INDEX (test code = 41402) 0.11 INTERPRETATION HEPATITIS A: (NOTE) (test code = 2552) INTERPRETATION HEPATITIS B: (NOTE) (test code = 28134) INTERPRETATION HEPATITIS C: (NOTE) (test code = 57865) ACUTE HEPATITIS [id number] 00:00:00 Test Item Value Reference Range Interpretation Comments HEPATITIS A IgM (test code = NON-REACTIVE 99974) HEPATITIS B CORE IgM (test code NON-REACTIVE = 4644) HEPATITIS B SURF AG (test code = NON-REACTIVE 2739) HEPATITIS C ANTIBODY (test code NON-REACTIVE = 4675) HCV INDEX (test code = 83469) 0.11 INTERPRETATION HEPATITIS A: (NOTE) (test code = 2552) INTERPRETATION HEPATITIS B: (NOTE) (test code = 57244) INTERPRETATION HEPATITIS C: (NOTE) (test code = 74713) [id number] 00:00:00 Test Item Value Reference Range Interpretation Comments RPR RESULT (test code = NON-REACTIVE 3501) RPR TITER (test code = 3500) NOT INDIC. TITER [id number] 00:00:00 Test Item Value Reference Range Interpretation Comments RPR RESULT (test code = NON-REACTIVE 3501) RPR TITER (test code = 3500) NOT INDIC. TITER [id number] 00:00:00 Test Item Value Reference Range Interpretation Comments RPR RESULT (test code = NON-REACTIVE 3501) RPR TITER (test code = 3500) NOT INDIC. TITER HPV HIGH RISK WITH GENOTYPE, [id number] 00:00:00 Test Item Value Reference Range Interpretation Comments HPV HIGH RISK INTERP (test code = NEGATIVE 10256) HPV 16 (test code = 47571) NEGATIVE HPV 18 (test code = 21248) NEGATIVE HPV, HR, OTHER GENOTYPES (test code NEGATIVE = 02703) HPV HIGH RISK WITH GENOTYPE, [id number] 00:00:00 Test Item Value Reference Range Interpretation Comments HPV HIGH RISK INTERP (test code = NEGATIVE 51319) HPV 16 (test code = 05056) NEGATIVE HPV 18 (test code = 08909) NEGATIVE HPV, HR, OTHER GENOTYPES (test code NEGATIVE = 02414) HIV AB/AG COMBO RFLX [id number] 00:00:00 Test Item Value Reference Range Interpretation Comments HIV 1/2 4TH GEN, RFLX CONF (test NON-REACTIVE code = 3514) HIV AB/AG COMBO RFLX [id number] 00:00:00 Test Item Value Reference Range Interpretation Comments HIV 1/2 4TH GEN, RFLX CONF (test NON-REACTIVE code = 3514) ACUTE HEPATITIS [id number] 00:00:00 Test Item Value Reference Range Interpretation Comments HEPATITIS A IgM (test code = NON-REACTIVE 27251) HEPATITIS B CORE IgM (test code NON-REACTIVE = 4644) HEPATITIS B SURF AG (test code = NON-REACTIVE 2739) HEPATITIS C ANTIBODY (test code NON-REACTIVE = 4675) HCV INDEX (test code = 97386) 0.11 INTERPRETATION HEPATITIS A: (NOTE) (test code = 2552) INTERPRETATION HEPATITIS B: (NOTE) (test code = 64585) INTERPRETATION HEPATITIS C: (NOTE) (test code = 13056) ACUTE HEPATITIS [id number] 00:00:00 Test Item Value Reference Range Interpretation Comments HEPATITIS A IgM (test code = NON-REACTIVE 76225) HEPATITIS B CORE IgM (test code NON-REACTIVE = 4644) HEPATITIS B SURF AG (test code = NON-REACTIVE 2739) HEPATITIS C ANTIBODY (test code NON-REACTIVE = 4675) HCV INDEX (test code = 71620) 0.11 INTERPRETATION HEPATITIS A: (NOTE) (test code = 2552) INTERPRETATION HEPATITIS B: (NOTE) (test code = 83831) INTERPRETATION HEPATITIS C: (NOTE) (test code = 64917)"
[2023-02-13 15:23] LABS: Specific Gravity > 1.030 (1.005-1.030); Urine Bacteria 20-50 /HPF (<20); Urine Bilirubin NEGATIVE (Negative); Urine Blood 3+ (OVER) (Negative); Urine Clarity Extremely Turbid (Clear); Urine Color Dark-Brown (Yellow); Urine Crystals Unidentified Few /HPF (None Seen); Urine Glucose NEGATIVE (Negative); Urine Mucus 4+ /HPF (None Seen); Urine Protein 3+ (Negative); Urine RBC >50 /HPF (None Seen); Urine Urobilinogen Normal (Normal); Urine WBC Clump Many /HPF (None Seen)
[2023-02-13 15:25] LABS: Specific Gravity 1.036 (1.005-1.030)
[2023-02-13] MEDS ORDERED: NA CHLORIDE 0.9% 1,000 ML ONE (15:42)
[2023-02-13] MEDS ORDERED: MORPHINE 4 MG/ML SYR ONE (15:42)
[2023-02-13] MEDS ORDERED: ONDANSETRON 4 MG/2 ML VIAL ONE (15:42)
[2023-02-13 15:45] LABS: Absolute Lymphocytes (CBC) 1.9 K/uL (0.7-4.9); Hematocrit 39.1 % (36.0-45.0); Lymphocytes % 16.5 % (15.3-44.8); MCV 98.5 fL (80-100); MPV 8.5 fL (7.6-11.3); Platelets 206 thou/uL (152-406); RBC Red Blood Cell Count 3.97 M/uL (3.86-4.86)
--- NOTE | 2023-02-13 15:53 | RAD REPORT ---
EXAM DESCRIPTION: US - Extremity Venous Uni Ltd - 02/13/2023 3:13 pm CLINICAL HISTORY: Pain COMPARISON: None. TECHNIQUE: Real-time sonographic evaluation of the left lower extremity deep venous system was perfo rmed. FINDINGS: Normal compressibility, flow augmentation, phasic flow and spontaneous flow is identified in the left lower extremity deep venous system. No intraluminal filling defects seen. IMPRESSION: No DVT in the left lower extremity.
[2023-02-13 15:54] LABS: Albumin 3.8 g/dL (3.4-5.0); Bilirubin Total 0.8 mg/dL (0.2-1.0); Potassium 3.5 mEq/L (3.5-5.1); Protein, Total 7.4 g/dL (6.4-8.2)
[2023-02-13] MEDS ORDERED: CEFTRIAXONE 1000 MG/VIAL ONE (16:11)
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
[2023-02-13 17:28] VITALS: TEMP 98
[2023-02-13 17:30] VITALS: BP 115/71; O2SAT 99
== END 2023-02-13 17:22 | disposition home or self-care (01) ==
LOC: ER 14:38
DX: A64 Unspecified sexually transmitted disease (principal); N76.0 Acute vaginitis
CPT/HCPCS: 96365; 87088; 85025; 81001; 87086; 36415; 82550; 81025; 83690; 80053; 93971; 96375; 99284; J2405; J7030; J0696

== ENCOUNTER 2023-08-10 02:31 | Emergency (ER) | payer OTHER, SELFPAY ==
--- OUTSIDE RECORDS SUMMARY | 2023-08-10 02:38 | XMS REPORT | Continuity of Care Document ---
Author Name Unknown Address [address] [facility] [address] [place] [address] [facility] Address [address] [facility] [address] [place] [address] Care Team Providers Care Cooker Sulfate Name Role Phone PCP, PATIENT DOES NOT HAVE A Primary Care Physic jacob Unavailable YANICK LYLE Attending Clinician UnaCHASITY Sanchez Attending Clinician Unavailable DIANN PONCE Attending Clinician Unavailable PROVIDER, ELLIOT Attending Clinician Unavailable MAYNOR SAMUEL Attending Clinician Unavailable GUILHERME WILDER Attending Clinician Unavailable Guilherme Wilder MD Attending Clinician [phone] Doctor Unassigned, [place] Attending Clinician U Cathie Xiao MD Attending Clinician [phone] RIVERA PINK Attending Clinician Unavailable CATHIE SUBRAMANIAN Attending Clinician UnavailRivera Bland Attending Clinician [phone] JESSE DONG Attending Clinician Unavailable ERICA KLINE Attending Clinician Unavailable RADIOLOGY Attending Clinician Unavailable Radiology Attending Clinician Unavailable TIMOTEO AMAYA Attending Clinician Unavailable Timoteo May Attending Clinician [phone] Karen Burnett PA-C Attending Clinician [phone] KAREN BURNETT Attending Clinician Unavailable Jesse Dong MD Attending Clinician [phone] BRYN BRADLEY Attending Clinician Unavailab roberto STONE Attending Clinician Unavailable RENUKA NELSON Attending Clinician Un available CARL WORKMAN Attending Clinician Unavailable AMNA CLARK Attending Clinician Unavailable RUSTAM THRASHER Attending Clinician Unavailable ISRAEL PEREZ Attending Clinician Unavailable ISRAEL PEREZ Attending Clinician Unavailable LENNOX CABRERA Attending Clinician UnavailAZEB Green Attending Clinician Unavaila NISH Malave Attending Clinician Unavailjalen ang KALYANICK ANDERS Admitting Clinician TIMOTEO Chowdary Admitting Clinician Unavailable BERTHA Admitting Clinician Unavailable CARL WORKMAN Admitting Clinician Unavailable Payers Payer Name Policy Type Policy Number Effective Date Expirati on Date Source [facility] [id number] 2020 00:00:00 [place] [facility] [id number] 2019 00:00:00 [facility] AMYRODRICK JOY COPAY FOCUS 9 [id number] 2023 00:00:00 JAYDE HERNANDEZ FROM [facility] [id number] 2022 00:00:00 [facility] MEDICAID [id number] 2018 00:00:00 Problems Condition Name Condition Details Condition Category Status Onset Date Resolution Date Last Treatment Date Treating Clinician Comments Source Infection of hand due to bite Infection of hand due to bite Disease Active 12-12 00:00: 00 [facility] Gastroesop hageal reflux disease without esophagiti s Gastroesop hageal reflux disease without esophagiti s Disease Active 2018-04 00:00: 00 [facility] Abnormal maternal glucose tolerance, antepartum Abnormal maternal glucose tolerance, antepartum Disease Active 2018-04 00:00: 00 [facility] Underweigh t Underweigh t Disease Active 01-21 00:00: 00 [facility] History of bipolar disorder History of bipolar disorder Disease Active 01-21 00:00: 00 [facility] Polysubsta nce abuse Polysubsta nce abuse Disease Active 01-17 00:00: 00 [facility] PTSD (post-trau matic stress disorder) PTSD (post-trau matic stress disorder) Disease Active 01-17 00:00: 00 [facility] Trichomona l vulvovagin itis Trichomona l vulvovagin itis Disease Active 10-26 00:00: 00 [facility] Hepatitis C antibody test positive Hepatitis C antibody test positive Disease Active 10-25 00:00: 00 Overview: Formattin g of this note might be different from the original. PCR negative [facility] Multiparit y Multiparit y Disease Active 10-22 00:00: 00 [facility] Eating disorder Eating disorder Disease Active 10-22 00:00: 00 [facility] Anxiety and depression Anxiety and depression Disease Active 10-22 00:00: 00 [facility] Lost custody of children Lost custody of children Disease Active 10-22 00:00: 00 [facility] History of seizures History of seizures Disease Active 10-22 00:00: 00 [facility] Allergies, Adverse Reactions, Alerts Allergy Name Allergy Type Status Severity Reaction(s) Onset Date Inactive Date Treating Clinician Comments Source Ziprasid one Propensi ty to adverse reaction s Active 3-21 00:00: 00 AMS Amy Seybold - Externa l Mesna - Intraven ous Propensi ty to adverse reaction to drug Active 24 00:00: 00 Ziprasid one Mesylate Propensi ty to adverse reaction s Active Hallucinatio ns 1-10 00:00: 00 [facility] Risperid one Propensi ty to adverse reaction s Active Hallucinatio ns 1-10 00:00: 00 [facility] ZIPRASID ONE MESYLATE DRUG INGREDI Active Hallucinates 1-10 00:00: 00 [facility] RISPERID ONE DRUG INGREDI Active Hallucinates 1-10 00:00: [address] [facility] NO KNOWN ALLERGIE S Drug Class Active [facility] Social History Social Habit Start Date Stop Date Quantity Comments Source Sexual orientation 2023-06-25 10:05:01 Heterosexual (finding) Amy Jacinto - External History of tobacco use 2001-10-22 00:00:00 Cigarette Smoker [facility] History SDOH Alcohol Std Drinks [facility] History SDOH Alcohol Binge [facility] History SDOH Alcohol Comment [facility] History of Social function 2023-06-25 00:00:00 2023-06-25 00:00:00 Amy Jacinto - External Alcohol intake 2023-03-03 00:00:00 2023-03-03 00:00:00 0 /d [facility] Exposure to SARS-CoV-2 (event) 2022-04-20 00:00:00 2022-04-30 14:04:00 Not sure [facility] Cigarettes smoked current (pack per day) - Reported 2022-04-30 00:00:00 2022-04-30 00:00:00 [facility] Tobacco use and exposure 2022-04-30 00:00:00 2022-04-30 00:00:00 Smokeless tobacco non-user [facility] Tobacco Comment 2022-04-30 00:00:00 2022-04-30 00:00:00 Has too much stress to quit [facility] History SDOH Alcohol Frequency 2018-10-22 00:00:00 2018-10-22 00:00:00 1 [facility] Sex Assigned At 1990 00:00:00 1990 00:00:00 F Amy Jacinto - External Smoking Status Start Date Stop Date Source Tobacco smoking consumption unknown Amy Jacinto - Ext ernal Smokes tobacco daily 2022-04-30 00:00:00 [facility] Medications Ordered Medication Name Filled Medication Name Start Date Stop Date Current Medication? Ordering Clinician Indication Dosage Frequency Signature (SIG) Comments Components Source hydrOXYzine HCl 10 MG oral Tablet 07-15 00:00: 00 08-05 04:59 :00 Yes [id number] 10mg [id number] 3D Take 1 tablet (10 mg total) by mouth 3 times daily as needed for anxiety for up to 20 days. Amy benjamin Mirtazapine 7.5 MG oral Tablet 2-29 00:00: 00 Yes [id number] 7.5mg Take 1 tablet (7.5 mg total) by mouth nightly. Amy benjamin ibuprofen (IBU) tablet 800 mg 2022-04 10:30: 00 03-03 09:33 :00 No 800mg 800 mg, Oral, ONCE, 1 dose, On Thu03/03/23 at 0430, Routine [facility] ibuprofen 800 mg tablet 2022-04 00:00: 00 Yes [id number] 800mg Take 1 tablet by mouth every 8 (eight) hours as needed for Alternate with [place] for pain scale 1-3. [facility] No known medications 1-04 14:13: 57 No No known medication s [facility] TAKE 1 CAPSULE BY MOUTH TWICE DAILY 2021-04 0-27 00:00: 00 No TAKE 1 TABLET BY MOUTH EVERY 8 HOURS WITH FOOD AND DRINK PLENTY OF WATER FOR PAIN 2021-0 9-13 00:00: 00 No TAKE 1 TABLET BY MOUTH EVERY 8 HOURS WITH FOOD AND DRINK PLENTY OF WATER FOR PAIN 2021-0 9-13 00:00: 00 No BUSPIRONE TAB 15MG 2021-0 8-29 00:00: 00 No BUSPIRONE TAB 15MG 2021-0 8-29 00:00: 00 No QUETIAPINE TAB 25MG 2021-0 8-22 00:00: 00 No QUETIAPINE TAB 25MG 2021-0 8-22 00:00: 00 No Dose Unknown 2021-0 8-09 00:00: 00 No Dose Unknown 2021-0 8-09 00:00: 00 No Dose Unknown 2021-0 7-08 00:00: 00 No Dose Unknown 2021-0 7-08 00:00: 00 No Dose Unknown 2021-0 7-08 00:00: 00 No Dose Unknown 2021-0 7-08 00:00: 00 No Dose Unknown 10-30 00:00: 00 No Dose Unknown 10-30 00:00: 00 No Dose Unknown 10-30 00:00: 00 No Dose Unknown 10-30 00:00: 00 No Dose Unknown 10-30 00:00: 00 No Dose Unknown 10-30 00:00: 00 No Dose Unknown 10-30 00:00: 00 No Dose Unknown 10-30 00:00: 00 No Dose Unknown 10-30 00:00: 00 No iopamidol (ISOVUE 370-500 mL) injection 80 mL 10-24 14:15: 00 10-24 13:09 :00 No [id number] 80mL 80 mL, Intravenou s, ONCE, 1 dose, On [facility] 10/24/21 at 0915, Routine [facility] ibuprofen 600 mg tablet 10-18 00:00: 00 No 1mg amoxicillin 500 mg capsule 10-18 00:00: 00 No 1mg ibuprofen 600 mg tablet 10-18 00:00: 00 No 1mg amoxicillin 500 mg capsule 0 10-18 00:00: 00 No 1mg ibuprofen 600 mg tablet 10-18 00:00: 00 No 1mg amoxicillin 500 mg capsule 10-18 00:00: 00 No 1mg ketorolac (TORADOL) injection 30 mg 09-23 20:30: 00 09-23 19:44 :00 No 30mg 30 mg, Slow IV Push, ONCE, 1 dose, On [facility] 09/23/21 at 1530, JENNIFER
Fa culty member approving Restricted medication : TIMOTEO AMAYA [facility] iopamidol (ISOVUE 370-500 mL) injection 100 mL 09-23 20:00: 00 09-23 20:15 :00 No [id number] 100mL 100 mL, Intravenou s, ONCE, 1 dose, On [facility] 09/23/21 at 1515, Routine [facility] ondansetron (ZOFRAN (PF)) injection 4 mg 09-23 19:45: 00 09-23 19:43 :00 No 4mg 4 mg, Slow IV Push, ONCE, 1 dose, On Thu09/23/21 at 1445, JENNIFER [facility] No known medications 09-23 13:33: [address] [facility] metronidazo le 500 mg tablet 08-19 00:00: 00 No 1mg metronidazo le 500 mg tablet 08-19 00:00: 00 No 1mg metronidazo le 500 mg tablet 08-19 00:00: 00 No 1mg Dose Unknown 08-15 00:00: 00 No Dose Unknown 08-15 00:00: 00 No Dose Unknown 08-15 00:00: 00 No ProAir HFA 90 mcg/actuati on aerosol inhaler 08-07 00:00: 00 No 1mcg/ac tuation Ventolin HFA 90 mcg/actuati on aerosol inhaler 08-07 00:00: 00 No 12mcg/a ctuatio n ProAir HFA 90 mcg/actuati on aerosol inhaler 08-07 00:00: 00 No 1mcg/ac tuation Ventolin HFA 90 mcg/actuati on aerosol inhaler 08-07 00:00: 00 No 12mcg/a ctuatio n ProAir HFA 90 mcg/actuati on aerosol inhaler 08-07 00:00: 00 No 1mcg/ac tuation Ventolin HFA 90 mcg/actuati on aerosol inhaler 08-07 00:00: 00 No 12mcg/a ctuatio n Xopenex HFA 45 mcg/actuati on aerosol inhaler 07-15 00:00: 00 No 1mcg/ac tuation sulfamethox azole 800 mg-trimetho prim 160 mg tablet 07-15 00:00: 00 No 1mg amoxicillin 875 mg-potassiu m clavulanate 125 mg tablet - 00:00: 00 No 1mg ibuprofen 600 mg tablet 2022-0 3-21 00:00: 00 No 1mg Dose Unknown 2021-0 3-21 00:00: 00 No Dose Unknown 2-0 3-21 00:00: 00 No Xopenex HFA 45 mcg/actuati on aerosol inhaler 2021-0 3-21 00:00: 00 No 1mcg/ac tuation sulfamethox azole 800 mg-trimetho prim 160 mg tablet 2021-0 3-21 00:00: 00 No 1mg amoxicillin 875 mg-potassiu m clavulanate 125 mg tablet 2021-0 3-21 00:00: 00 No 1mg ibuprofen 600 mg tablet 2021-0 3-21 00:00: 00 No 1mg Dose Unknown 2021-0 3-21 00:00: 00 No Dose Unknown 2021-0 3-21 00:00: 00 No Dose Unknown 2021-0 3-21 00:00: 00 No Dose Unknown 2021-0 3-21 00:00: 00 No Dose Unknown 2021-0 3-21 00:00: 00 No Dose Unknown 2-0 3-21 00:00: 00 No Dose Unknown 2-0 3-21 00:00: 00 No Dose Unknown 2022-0 3-18 00:00: 00 No Dose Unknown 2022-0 3-18 00:00: 00 No Dose Unknown 2022-0 3-18 00:00: 00 No Dose Unknown 2022-0 3-18 00:00: 00 No Dose Unknown 2022-0 3-14 00:00: 00 No Dose Unknown 2022-0 3-14 00:00: 00 No Dose Unknown 2022-0 3-14 00:00: 00 No Dose Unknown 2022-0 3-14 00:00: 00 No Dose Unknown 2022-0 3-13 00:00: 00 No Dose Unknown 2022-0 3-13 00:00: 00 No Dose Unknown 2022-0 3-13 00:00: 00 No Dose Unknown 2022-0 3-13 00:00: 00 No Zyprexa 5 mg tablet 2021-0 2-17 00:00: 00 No 1mg Zyprexa 5 mg tablet 2-0 2-17 00:00: 00 No 1mg buspirone 15 mg tablet 2021-0 2-11 00:00: 00 No 1mg buspirone 15 mg tablet 0 2-11 00:00: 00 No 1mg ProAir HFA 90 mcg/actuati on aerosol inhaler 2020-04 0-18 00:00: 00 No 2mcg/ac tuation Tessalon Perles 100 mg capsule 2020-04 0-18 00:00: 00 No 12mg ProAir HFA 90 mcg/actuati on aerosol inhaler 2020-04 0-18 00:00: 00 No 2mcg/ac tuation Tessalon Perles 100 mg capsule 2020-04 0-18 00:00: 00 No 12mg ProAir HFA 90 mcg/actuati on aerosol inhaler 2020-04 0-12 00:00: 00 No 2mcg/ac tuation ProAir HFA 90 mcg/actuati on aerosol inhaler 2020-04 0-12 00:00: 00 No 2mcg/ac tuation Zithromax 250 mg tablet 2020-04 0-06 00:00: 00 No 1mg Flonase Allergy Relief 50 mcg/actuati on nasal spray,suspe nsion 2020-04 0-06 00:00: 00 No 2mcg/ac tuation Bromfed DM 2 mg-30 mg-10 mg/5 mL oral syrup 2020-04 0-06 00:00: 00 No 10mg/5 mL Zithromax 250 mg tablet 2020-04 0-06 00:00: 00 No 1mg Flonase Allergy Relief 50 mcg/actuati on nasal spray,suspe nsion 2020-04 0-06 00:00: 00 No 2mcg/ac tuation Bromfed DM 2 mg-30 mg-10 mg/5 mL oral syrup 2020-04 0-06 00:00: 00 No 10mg/5 mL hydroxyzine HCl 25 mg tablet 0 3-04 00:00: 00 No 1mg Protonix 40 mg tablet,dung yed release 0 3-04 00:00: 00 No 1mg hydroxyzine HCl 25 mg tablet 0 3-04 00:00: 00 No 1mg Protonix 40 mg tablet,dung yed release 0 3-04 00:00: 00 No 1mg Protonix 40 mg tablet,dung yed release 06-27 00:00: 00 No 1mg hydroxyzine HCl 25 mg tablet 06-27 00:00: 00 No 1mg Protonix 40 mg tablet,dung yed release 06-27 00:00: 00 No 1mg hydroxyzine HCl 25 mg tablet 06-27 00:00: 00 No 1mg No known medications 05-23 18:00: [address] [facility] methylpredn isolone 4 mg tablets in a dose pack 2019-04 00:00: 00 No mg methylpredn isolone 4 mg tablets in a dose pack 2019-04 00:00: 00 No mg Flagyl 500 mg tablet 2019-04 00:00: 00 No 1mg Flagyl 500 mg tablet 2019-04 00:00: 00 No 1mg NUVARING 0.12-0.015 mg/24 hr vaginal insert 07-10 00:00: 00 05-23 00:00 :00 No 1{each} Insert 1 Each into vagina once every month. Insert vaginally and leave in place for 3 consecutiv e weeks, then remove for 1 week. [facility] busPIRone 15 mg tablet 2018-04 00:00: 00 05-23 00:00 :00 No [id number] 15mg Take 1 tablet by mouth 2 (two) times daily. [facility] vitamin w/FA tablet 2018-04 00:00: 00 05-23 00:00 :00 No [id number] 1{tbl} Take 1 tablet by mouth daily. [facility] docusate calcium 240 mg capsule 2018-04 00:00: 00 05-23 00:00 :00 No [id number] 240mg Take 1 capsule by mouth once daily as needed for Constipati on. [facility] ferrous sulfate 325 mg (65 mg iron) tablet 2018-04 00:00: 00 05-23 00:00 :00 No [id number] 325mg Take 1 tablet by mouth 2 (two) times daily. [facility] ibuprofen 600 mg tablet 2018-04 00:00: 00 05-23 00:00 :00 No [id number] 600mg Take 1 tablet by mouth every 6 (six) hours as needed (Pain). Take with food or milk. [facility] Immunizations Ordered Immunization Name Filled Immunization Name Date Status Comments Source TDAP (ADACEL) VACCINE 2019-03-10 00:00:00 Completed [facility] TDAP (ADACEL) VACCINE 2019-03-10 00:00:00 Completed [facility] TDAP (ADACEL) VACCINE 2019-03-10 00:00:00 Completed [facility] TDAP (ADACEL) VACCINE 2019-03-10 00:00:00 Completed [facility] TDAP (ADACEL) VACCINE 2019-03-10 00:00:00 Completed [facility] TDAP (ADACEL) VACCINE 2019-03-10 00:00:00 Completed [facility] TDAP (ADACEL) VACCINE 2019-03-10 00:00:00 Completed [facility] TDAP (ADACEL) VACCINE 2019-03-10 00:00:00 Completed [facility] TDAP (ADACEL) VACCINE 2019-03-10 00:00:00 Completed [facility] TDAP (ADACEL) VACCINE 2019-03-10 00:00:00 Completed [facility] TDAP (ADACEL) VACCINE 2019-03-10 00:00:00 Completed [facility] TDAP (ADACEL) VACCINE 2019-03-10 00:00:00 Completed [facility] TDAP (ADACEL) VACCINE 2019-03-10 00:00:00 Completed [facility] TDAP (ADACEL) VACCINE 2019-03-10 00:00:00 Completed [facility] TDAP (ADACEL) VACCINE 2019-03-10 00:00:00 Completed [facility] MMR 2012-11-22 00:00:00 Completed [facility] MMR 2012-11-22 00:00:00 Completed [facility] MMR 2012-11-22 00:00:00 Completed [facility] MMR 2012-11-22 00:00:00 Completed [facility] MMR 2012-11-22 00:00:00 Completed [facility] MMR 2012-11-22 00:00:00 Completed [facility] MMR 2012-11-22 00:00:00 Completed [facility] MMR 2012-11-22 00:00:00 Completed [facility] MMR 2012-11-22 00:00:00 Completed [facility] MMR 2012-11-22 00:00:00 Completed [facility] MMR 2012-11-22 00:00:00 Completed [facility] MMR 2012-11-22 00:00:00 Completed [facility] MMR 2012-11-22 00:00:00 Completed [facility] MMR 2012-11-22 00:00:00 Completed [facility] MMR 2012-11-22 00:00:00 Completed [facility] HEPATITIS A 2012-10-19 00:00:00 Completed [facility] MMR 2012-10-19 00:00:00 Completed [facility] HEPATITIS A 2012-10-19 00:00:00 Completed [facility] MMR 2012-10-19 00:00:00 Completed [facility] HEPATITIS A 2012-10-19 00:00:00 Completed [facility] MMR 2012-10-19 00:00:00 Completed [facility] HEPATITIS A 2012-10-19 00:00:00 Completed [facility] MMR 2012-10-19 00:00:00 Completed [facility] HEPATITIS A 2012-10-19 00:00:00 Completed [facility] MMR 2012-10-19 00:00:00 Completed [facility] HEPATITIS A 2012-10-19 00:00:00 Completed [facility] MMR 2012-10-19 00:00:00 Completed [facility] HEPATITIS A 2012-10-19 00:00:00 Completed [facility] MMR 2012-10-19 00:00:00 Completed [facility] HEPATITIS A 2012-10-19 00:00:00 Completed [facility] MMR 2012-10-19 00:00:00 Completed [facility] HEPATITIS A 2012-10-19 00:00:00 Completed [facility] MMR 2012-10-19 00:00:00 Completed [facility] HEPATITIS A 2012-10-19 00:00:00 Completed [facility] MMR 2012-10-19 00:00:00 Completed [facility] HEPATITIS A 2012-10-19 00:00:00 Completed [facility] MMR 2012-10-19 00:00:00 Completed [facility] HEPATITIS A 2012-10-19 00:00:00 Completed [facility] MMR 2012-10-19 00:00:00 Completed [facility] HEPATITIS A 2012-10-19 00:00:00 Completed [facility] MMR 2012-10-19 00:00:00 Completed [facility] HEPATITIS A 2012-10-19 00:00:00 Completed [facility] MMR 2012-10-19 00:00:00 Completed [facility] HEPATITIS A 2012-10-19 00:00:00 Completed [facility] MMR 2012-10-19 00:00:00 Completed [facility] TDAP (ADACEL) VACCINE Unknown Completed [facility] HEPATITIS A Unknown Completed [facility] MMR Unknown Completed [facility] MMR Unknown Completed [facility] TDAP (ADACEL) VACCINE Unknown Completed [facility] HEPATITIS A Unknown Completed [facility] MMR Unknown Completed [facility] MMR Unknown Completed [facility] TDAP (ADACEL) VACCINE Unknown Completed [facility] HEPATITIS A Unknown Completed [facility] MMR Unknown Completed [facility] MMR Unknown Completed [facility] TDAP (ADACEL) VACCINE Unknown Completed [facility] HEPATITIS A Unknown Completed [facility] MMR Unknown Completed [facility] MMR Unknown Completed [facility] TDAP (ADACEL) VACCINE Unknown Completed [facility] HEPATITIS A Unknown Completed [facility] MMR Unknown Completed [facility] MMR Unknown Completed [facility] TDAP (ADACEL) VACCINE Unknown Completed [facility] HEPATITIS A Unknown Completed [facility] MMR Unknown Completed [facility] MMR Unknown Completed [facility] TDAP (ADACEL) VACCINE Unknown Completed [facility] HEPATITIS A Unknown Completed [facility] MMR Unknown Completed [facility] MMR Unknown Completed [facility] [facility] TDAP (ADACEL) VACCINE Unknown Completed [facility] HEPATITIS A Unknown Completed [facility] MMR Unknown Completed [facility] MMR Unknown Completed [facility] Vital Signs Vital Name Observation Time Observation Value Comments S ource Systolic blood pressure 2023-03-03 08:53:00 113 mm[Hg] [facility] Diastolic blood pressure 2023-03-03 08:53:00 91 mm[Hg] [facility] Heart rate 2023-03-03 08:53:00 93 /min [facility] Body temperature 2023-03-03 08:53:00 37.11 Diya [facility] Respiratory rate 2023-03-03 08:53:00 20 /min [facility] Body height 2023-03-03 08:53:00 165.1 cm [facility] Body weight 2023-03-03 08:53:00 45.36 kg [facility] BMI 2023-03-03 08:53:00 16.64 kg/m2 [facility] Oxygen saturation in Arterial blood by Pulse oximetry 2023-03-03 08:53:00 100 /min [facility] Systolic blood pressure 2022-04-30 20:12:00 148 mm[Hg] pt on the phone [facility] Diastolic blood pressure 2022-04-30 20:12:00 103 mm[Hg] pt on the phone [facility] Heart rate 2022-04-30 20:12:00 108 /min [facility] Systolic blood pressure 2021-09-23 23:07:54 117 mm[Hg] [facility] Diastolic blood pressure 2021-09-23 23:07:54 80 mm[Hg] [facility] Heart rate 2021-09-23 23:07:54 78 /min [facility] Respiratory rate 2021-09-23 23:07:54 18 /min [facility] Oxygen saturation in Arterial blood by Pulse oximetry 2021-09-23 23:07:54 98 /min [facility] Body temperature 2021-09-23 18:10:00 36.94 Diya [facility] Body height 2021-09-23 18:10:00 165.1 cm [facility] Body weight 2021-09-23 18:10:00 49.896 kg [facility] BMI 2021-09-23 18:10:00 18.30 kg/m2 [facility] BP Systolic 2022-03-05 09:57:00 BP Diastolic 2022-03-05 09:57:00 Weight Measured 2022-03-05 09:57:00 Height Measured 2022-03-05 09:57:00 Body Temperature 2022-03-05 09:57:00 Heart Rate 2022-03-05 09:57:00 Respiratory Rate 2022-03-05 09:57:00 BP Systolic 2022-02-13 14:00:00 119 mm[Hg] BP Diastolic 2022-02-13 14:00:00 84 mm[Hg] Weight Measured 2022-02-13 14:00:00 121.60 pounds Height Measured 2022-02-13 14:00:00 65.00 inches Body Temperature 2022-02-13 14:00:00 97.80 degrees Heart Rate 2022-02-13 14:00:00 81.00 /min Respiratory Rate 2022-02-13 14:00:00 BP Systolic 2021-10-30 14:47:00 121 mm[Hg] BP Diastolic 2021-10-30 14:47:00 84 mm[Hg] Weight Measured 2021-10-30 14:47:00 112.40 pounds Height Measured 2021-10-30 14:47:00 65.00 inches Body Temperature 2021-10-30 14:47:00 98.10 degrees Heart Rate 2021-10-30 14:47:00 86.00 /min Respiratory Rate 2021-10-30 14:47:00 BP Systolic 2021-10-18 13:35:00 BP Diastolic 2021-10-18 13:35:00 Weight Measured 2021-10-18 13:35:00 114.60 pounds Height Measured 2021-10-18 13:35:00 65.00 inches Body Temperature 2021-10-18 13:35:00 Heart Rate 2021-10-18 13:35:00 Respiratory Rate 2021-10-18 13:35:00 BP Systolic 2021-10-02 15:22:00 139 mm[Hg] BP Diastolic 2021-10-02 15:22:00 99 mm[Hg] Weight Measured 2021-10-02 15:22:00 114.60 pounds Height Measured 2021-10-02 15:22:00 65.00 inches Body Temperature 2021-10-02 15:22:00 97.60 degrees Heart Rate 2021-10-02 15:22:00 96.00 /min Respiratory Rate 2021-10-02 15:22:00 21.00 /min BP Systolic 2021-09-25 13:48:00 118 mm[Hg] BP Diastolic 2021-09-25 13:48:00 82 mm[Hg] Weight Measured 2021-09-25 13:48:00 113.20 pounds Height Measured 2021-09-25 13:48:00 65.00 inches Body Temperature 2021-09-25 13:48:00 97.80 degrees Heart Rate 2021-09-25 13:48:00 104.00 /min Respiratory Rate 2021-09-25 13:48:00 BP Systolic 2021-08-29 09:09:00 115 mm[Hg] BP Diastolic 2021-08-29 09:09:00 80 mm[Hg] Weight Measured 2021-08-29 09:09:00 114.60 pounds Height Measured 2021-08-29 09:09:00 65.00 inches Body Temperature 2021-08-29 09:09:00 Heart Rate 2021-08-29 09:09:00 79.00 /min Respiratory Rate 2021-08-29 09:09:00 BP Systolic 2021-08-22 13:21:00 113 mm[Hg] BP Diastolic 2021-08-22 13:21:00 75 mm[Hg] Weight Measured 2021-08-22 13:21:00 110.60 pounds Height Measured 2021-08-22 13:21:00 65.00 inches Body Temperature 2021-08-22 13:21:00 97.80 degrees Heart Rate 2021-08-22 13:21:00 104.00 /min Respiratory Rate 2021-08-22 13:21:00 BP Systolic 2021-08-15 13:33:00 112 mm[Hg] BP Diastolic 2021-08-15 13:33:00 76 mm[Hg] Weight Measured 2021-08-15 13:33:00 115.20 pounds Height Measured 2021-08-15 13:33:00 65.00 inches Body Temperature 2021-08-15 13:33:00 98.00 degrees Heart Rate 2021-08-15 13:33:00 93.00 /min Respiratory Rate 2021-08-15 13:33:00 21.00 /min BP Systolic 2021-07-15 11:40:00 111 mm[Hg] BP Diastolic 2021-07-15 11:40:00 81 mm[Hg] Weight Measured 2021-07-15 11:40:00 116.80 pounds Height Measured 2021-07-15 11:40:00 65.00 inches Body Temperature 2021-07-15 11:40:00 97.30 degrees Heart Rate 2021-07-15 11:40:00 75.00 /min Respiratory Rate 2021-07-15 11:40:00 BP Systolic 2021-06-07 13:24:00 133 mm[Hg] BP Diastolic 2021-06-07 13:24:00 94 mm[Hg] Weight Measured 2021-06-07 13:24:00 115.60 pounds Height Measured 2021-06-07 13:24:00 65.00 inches Body Temperature 2021-06-07 13:24:00 97.60 degrees Heart Rate 2021-06-07 13:24:00 95.00 /min Respiratory Rate 2021-06-07 13:24:00 BP Systolic 2021-02-11 15:04:00 114 mm[Hg] BP Diastolic 2021-02-11 15:04:00 82 mm[Hg] Weight Measured 2021-02-11 15:04:00 116.20 pounds Height Measured 2021-02-11 15:04:00 65.00 inches Body Temperature 2021-02-11 15:04:00 98.50 degrees Heart Rate 2021-02-11 15:04:00 103.00 /min Respiratory Rate 2021-02-11 15:04:00 Procedures Procedure Date / Time Performed Performing Clinician Source NOTICE OF PRIVACY PRACTICES 2023-03-03 08:39:15 Doctor Unassigned, [place] [facility] CONSENT/REFUSAL FOR DIAGNOSIS AND TREATMENT 2023-03-03 08:36:34 Doctor Unassigned, [place] [facility] EXTERNAL PROVIDER RECORDS 2022-07-01 06:01:00 Doctor Unassigned, [place] [facility] AUTHORIZATION FOR RELEASE OF PHI 2021-11-25 05:01:00 Doctor Unassigned, [place] [facility] REFERRAL- REQUEST/RESPONSE 2021-11-11 05:01:00 Doctor Unassigned, [place] [facility] US PELVIS COMPLETE WITH TRANSVAGINAL 2021-10-24 13:17:52 Requisition, Paper [facility] CT THORAX W CONTRAST 2021-10-24 13:08:26 Requisition, Paper [facility] CT THORAX WO CONTRAST 2021-10-24 13:08:08 Requisition, Paper [facility] US PELVIS COMPLETE WITH TRANSVAGINAL 2021-09-23 22:52:01 Timoteo Amaya [facility] CT ABDOMEN PELVIS W CONTRAST 2021-09-23 20:02:13 Timoteo Amaya [facility] COMP. METABOLIC PANEL (60012) 2021-09-23 19:12:00 Timoteo Amaya [facility] CBC WITH DIFF 2021-09-23 19:12:00 Timoteo Amaya [facility] POCT TEST 2021-09-23 18:47:00 Timoteo Amaya [facility] URINALYSIS 2021-09-23 18:41:00 Timoteo Amaya [facility] NOTICE OF PRIVACY PRACTICES 2021-09-23 17:59:15 Doctor Unassigned, [place] [facility] CONSENT/REFUSAL FOR DIAGNOSIS AND TREATMENT 2021-09-23 17:59:01 Doctor Unassigned, [place] [facility] [id number] Colposcopy Cervix Bx Cervix endocrv Curtg 2021-08-29 00:00:00 Plan of Care Planned Activity Planned Date Details Comments Source Goal Plan of Care Note [code = 96870-5] Goal Plan of Care Note [code = 92407-9] Goal Plan of Care Note [code = 15358-7] Goal Plan of Care Note [code = 17911-0] Goal Plan of Care Note [code = 50552-2] Goal Plan of Care Note [code = 96243-7] Goal Plan of Care Note [code = 36375-6] Goal Plan of Care Note [code = 11875-9] Goal Plan of Care Note [code = 86946-6] Goal Plan of Care Note [code = 88604-5] Goal Plan of Care Note [code = 92645-5] Goal Plan of Care Note [code = 85584-2] Goal Plan of Care Note [code = 51510-5] Goal Plan of Care Note [code = 52398-2] Goal Plan of Care Note [code = 06947-0] Goal Plan of Care Note [code = 24233-2] Goal Plan of Care Note [code = 21220-2] Goal Plan of Care Note [code = 30855-8] Goal Plan of Care Note [code = 96378-8] Goal Plan of Care Note [code = 51247-2] Goal Plan of Care Note [code = 76954-6] Goal Plan of Care Note [code = 17998-0] Goal Plan of Care Note [code = 07772-8] Goal Plan of Care Note [code = 94652-0] Goal Plan of Care Note [code = 98723-9] Goal Plan of Care Note [code = 74215-4] Goal Plan of Care Note [code = 18356-8] Goal Plan of Care Note [code = 76154-9] Goal Plan of Care Note [code = 18541-3] Goal Plan of Care Note [code = 91458-2] Goal Plan of Care Note [code = 20957-6] Goal Plan of Care Note [code = 02186-3] Goal Plan of Care Note [code = 73963-5] Goal Plan of Care Note [code = 64644-4] Goal Plan of Care Note [code = 38882-5] Goal Plan of Care Note [code = 96764-7] Goal Plan of Care Note [code = 81727-5] Goal Plan of Care Note [code = 33588-0] Goal Plan of Care Note [code = 47759-0] Goal Plan of Care Note [code = 18508-1] Goal Plan of Care Note [code = 69709-3] Goal Plan of Care Note [code = 51138-3] Goal Plan of Care Note [code = 38428-2] Goal Plan of Care Note [code = 65165-6] Goal Plan of Care Note [code = 61623-5] Goal Plan of Care Note [code = 65675-1] Goal Plan of Care Note [code = 21778-0] Goal Plan of Care Note [code = 75946-1] Goal Plan of Care Note [code = 14376-0] Goal Plan of Care Note [code = 35783-7] Goal Plan of Care Note [code = 49378-3] Goal Plan of Care Note [code = 26544-9] Goal Plan of Care Note [code = 06351-2] Goal Plan of Care Note [code = 05437-0] Goal Plan of Care Note [code = 20572-5] Goal Plan of Care Note [code = 11490-9] Goal Plan of Care Note [code = 48752-3] Goal Plan of Care Note [code = 95703-9] Goal Plan of Care Note [code = 04545-7] Goal Plan of Care Note [code = 48131-0] Goal Plan of Care Note [code = 57781-6] Goal Plan of Care Note [code = 88133-9] Goal Plan of Care Note [code = 87215-4] Goal Plan of Care Note [code = 78168-0] Goal Plan of Care Note [code = 31889-1] Goal Plan of Care Note [code = 28502-8] Goal Plan of Care Note [code = 81179-9] Goal Plan of Care Note [code = 60308-5] Goal Plan of Care Note [code = 68092-8] Goal Plan of Care Note [code = 07073-8] Goal Plan of Care Note [code = 11590-4] Goal Plan of Care Note [code = 92045-4] Goal Plan of Care Note [code = 33068-4] Goal Plan of Care Note [code = 94683-4] Goal Plan of Care Note [code = 72662-0] Goal Plan of Care Note [code = 54135-0] Goal Plan of Care Note [code = 55762-3] Goal Plan of Care Note [code = 17465-1] Goal Plan of Care Note [code = 52698-1] Goal Plan of Care Note [code = 60655-6] Goal Plan of Care Note [code = 22208-9] Goal Plan of Care Note [code = 25419-0] Goal Plan of Care Note [code = 93016-2] Goal Plan of Care Note [code = 10836-1] Goal Plan of Care Note [code = 92548-3] Goal Plan of Care Note [code = 04208-2] Goal Plan of Care Note [code = 45289-4] Goal Plan of Care Note [code = 29403-9] Goal Plan of Care Note [code = 39507-3] Goal Plan of Care Note [code = 20500-8] Goal Plan of Care Note [code = 87467-3] Goal Plan of Care Note [code = 16970-3] Goal Plan of Care Note [code = 12068-2] Goal Plan of Care Note [code = 16740-4] Goal Plan of Care Note [code = 37946-6] Goal Plan of Care Note [code = 49668-4] Goal Plan of Care Note [code = 91191-7] Goal Plan of Care Note [code = 55894-4] Goal Plan of Care Note [code = 35401-7] Goal Plan of Care Note [code = 10470-0] Goal Plan of Care Note [code = 59460-1] Goal Plan of Care Note [code = 74554-8] Goal Plan of Care Note [code = 21051-7] Goal Plan of Care Note [code = 07268-5] Goal Plan of Care Note [code = 48603-2] Goal Plan of Care Note [code = 37078-4] Goal Plan of Care Note [code = 42894-3] Goal Plan of Care Note [code = 65683-7] Goal Plan of Care Note [code = 25369-7] Goal Plan of Care Note [code = 06767-9] Goal Plan of Care Note [code = 08137-0] Goal Plan of Care Note [code = 93387-5] Goal Plan of Care Note [code = 22712-1] Goal Plan of Care Note [code = 92841-0] Goal Plan of Care Note [code = 74553-6] Goal Plan of Care Note [code = 67418-0] Goal Plan of Care Note [code = 44675-7] Goal Plan of Care Note [code = 66501-2] Goal Plan of Care Note [code = 61940-3] Goal Plan of Care Note [code = 64227-4] Goal Plan of Care Note [code = 19384-4] Goal Plan of Care Note [code = 00877-0] Goal Plan of Care Note [code = 48566-6] Goal Plan of Care Note [code = 32259-9] Goal Plan of Care Note [code = 28756-1] Goal Plan of Care Note [code = 59673-8] Goal Plan of Care Note [code = 89987-5] Goal Plan of Care Note [code = 31388-3] Goal Plan of Care Note [code = 84743-3] Goal Plan of Care Note [code = 60376-8] Goal Plan of Care Note [code = 33827-8] Goal Plan of Care Note [code = 99326-7] Goal Plan of Care Note [code = 45977-9] Goal Plan of Care Note [code = 38378-7] Goal Plan of Care Note [code = 13593-2] Goal Plan of Care Note [code = 06654-9] Goal Plan of Care Note [code = 36957-1] Goal Plan of Care Note [code = 03015-3] Goal Plan of Care Note [code = 27547-3] Goal Plan of Care Note [code = 85308-0] Goal Plan of Care Note [code = 25333-4] Goal Plan of Care Note [code = 46772-3] Goal Plan of Care Note [code = 09119-0] Goal Plan of Care Note [code = 02532-0] Goal Plan of Care Note [code = 41563-9] Goal Plan of Care Note [code = 44268-9] Goal Plan of Care Note [code = 27191-8] Goal Plan of Care Note [code = 38180-7] Encounters Start Date/Time End Date/Time Encounter Type Admission Type Attending [facility] Care Facility Care Department Encounter ID Source 2021-02-23 16:17:01 Emergency [facility] [id number] [facility] 2021-02-22 13:07:11 Emergency X YANICK LYLE [facility] [id number] [facility] 2023-07-30 09:00:00 2023-07-30 09:00:00 Outpatient CHASITY SALVADOR [id number] Amy Jacinto 2023-07-16 18:15:00 2023-07-16 18:15:00 Out[facility] [id number] [facility]23-[facility]-16 17:55:00 2023-07-16 17:55:00 Outpatient PROVIDER, ELLIOT MCINTYRE [id number] Amy denise 2023-06-25 10:15:00 2023-06-25 10:15:00 Outpatient NWEKE, MAYNOR MCINTYRE [id number] [facility] 2023-06-22 10:12:02 2023-06-22 10:12:02 Outpatient SFA S[facility] [id number] Azam Raphael 2023-06-18 16:35:48 2023-06-18 16:35:48 Outpatient SFA SFA [id number] Azam Raphael 2023-06-08 14:44:09 2023-06-08 14:44:09 Outpatient SFA SFA [id number] Azam Raphael 2023-06-04 10:48:04 2023-06-04 10:48:04 Outpatient SFA SFA [id number] Azam Vallejo [place] 2023-05-25 08:44:02 2023-05-25 08:44:02 Outpatient SFA SFA [id number] Azam Raphael 2023-04-21 13:55:33 2023-04-21 13:55:33 Outpatient SFA SFA [id number] Azam Raphael 2023-04-02 17:25:25 2023-04-02 17:25:25 Outpatient SFA SFA [id number] Azam Raphael 2023-03-03 02:58:00 2023-03-03 03:49:00 Emergency X MIRTA WILDERCLAUDIA [facility] ERT [id number] [facility] 2023-03-03 02:58:00 2023-03-03 03:49:00 Emergency Guilherme Wilder rBiana [facility] 1.2.840.114 350.1.13.10 4.2.7.2.686 [id number] [facility] 2023-01-07 13:16:59 2023-01-07 13:16:59 Outpatient SFA SFA [id number] Azam Raphael 2022-12-03 19:26:04 2022-12-03 19:26:04 Outpatient SFA SFA [id number] Azam Raphael 2022-11-17 13:05:19 2022-11-17 13:05:19 Outpatient SFA SFA [id number] Azam Raphael 2022-11-10 10:41:21 2022-11-10 10:41:21 Outpatient SFA SFA [id number] Azam Raphael 2022-11-08 14:16:42 2022-11-08 14:16:42 Outpatient SFA SFA 0715 Azam Raphael 2022-10-31 14:26:52 2022-10-31 14:26:52 Outpatient SFA SFA [id number] Azam Vallejo [place] 2022-10-27 11:18:15 2022-10-27 11:18:15 Outpatient SFA [id number] Azam Vallejo [place] 2022-10-24 15:42:10 2022-10-24 15:42:10 Outpatient SFA SFA [id number] Azam Vallejo [place] 2022-07-08 14:24:41 2022-07-08 14:24:41 Outpatient SFA SFA [id number] Azam Vallejo [place] 2022-07-01 00:00:00 2022-07-01 00:00:00 Orders Only Doctor Unassigned, [place] [facility] 1.840.114 350.1.13.10 4.2.7.2.686 [id number] [facility] 2022-05-07 00:00:00 2022-05-07 00:00:00 Telephone Cathie Subramanian [facility] 1.840.114 350.1.13.10 4.2.7.2.686 [id number] [facility] 2022-05-05 00:00:00 2022-05-05 00:00:00 Telephone Cathie Subramanian [facility] 1.2.840.114 350.1.13.10 4.2.7.2.686 [id number] [facility] 2022-05-01 16:00:00 2022-05-01 16:00:00 Outpatient RIVERA RIVERA [facility] [id number] [facility] 2022-04-30 14:30:00 2022-04-30 14:30:00 Office Visit Cathie Subramanian [facility] 1.2.840.114 350.1.13.10 4.2.7.2.686 [id number] [facility] 2022-04-30 14:30:00 2022-04-30 14:22:11 Outpatient R CATHIE SUBRAMANIAN [facility] [id number] [facility] 2022-04-29 14:00:00 2022-04-29 14:00:00 Outpatient RIVERA RIVERA [facility] [id number] [facility] 2022-04-29 00:00:00 2022-04-29 00:00:00 Telephone Rivera Pink [facility] 1.2.840.114 350.1.13.10 4.2.7.2.686 [id number] [facility] 2022-04-28 00:00:00 2022-04-28 00:00:00 Telephone Cathie Subramanian [facility] 1.2.840.114 350.1.13.10 4.2.7.2.686 [id number] [facility] 2022-04-25 10:00:19 2022-04-25 10:00:19 Outpatient SFA [facility] [id number] Azam Raphael 2022-04-01 14:00:00 2022-04-01 14:00:00 Outpatient R DONG, JESSE [facility] [id number] [facility] 2022-03-27 13:30:00 2022-03-27 13:30:00 Outpatient Opal DONG JESSE [facility] [id number] [facility] 2022-03-05 00:00:00 2022-03-05 00:00:00 Outpatient Visit [id number] 2022-02-14 09:30:00 2022-02-14 09:30:00 Outpatient ERICA MELENDEZ [facility] [id number] [facility] 2022-02-13 13:45:00 2022-02-13 13:45:00 Outpatient [facility] [id number] Azam F [place] 2022-02-13 00:00:00 2022-02-13 00:00:00 Outpatient Visit [id number] 2021-11-25 00:00:00 2021-11-25 00:00:00 Orders Only Doctor Unassigned, [place] [address].840.114 350.1.13.10 4.2.7.2.686 [id number] [facility] 2021-11-11 00:00:00 2021-11-11 00:00:00 Orders Only Doctor Unassigned, [place] [address].840.114 350.1.13.10 4.2.7.2.686 [id number] [facility] 2021-10-30 00:00:00 2021-10-30 00:00:00 Outpatient Visit [id number] 2021-10-24 07:29:35 2021-10-24 23:59:00 Outpatient R RADIOLOGY [facility] [id number] [facility] 2021-10-24 07:29:35 2021-10-24 23:59:[address] [facility] 1.2.840.114 350.1.13.10 4.2.7.2.686 [id number] [facility] 2021-10-24 07:28:55 2021-10-24 07:28:[address] [facility] ([facility] 1.2.840.114 350.1.13.10 4.2.7.2.686 [id number] [facility] 2021-10-24 07:28:21 2021-10-24 07:28:[address] [facility] ([facility] 1.2.840.114 350.1.13.10 4.2.7.2.686 [id number] [facility] 2021-10-24 00:00:00 2021-10-24 00:00:00 Outpatient R RADIOLOGY [facility] [id number] [facility] 2021-09-24 00:00:00 2021-09-24 00:00:00 Patient Secure Msg Doctor Unassigned, [place] [facility] 1.2.840.114 350.1.13.10 4.2.7.2.686 [id number] [facility] 2021-09-23 13:12:00 2021-09-23 18:47:00 Emergency X TIMOTEO AMAYA [facility] ERT [id number] [facility] 2021-09-23 13:12:00 2021-09-23 18:47:00 Emergency Timoteo Amaya S [facility] 1.2.840.114 350.1.13.10 4.2.7.2.686 [id number] [facility] 2021-09-23 00:00:00 2021-09-23 00:00:00 Orders Only Doctor Unassigned, [place] [facility] 1.2.840.114 350.1.13.10 4.2.7.2.686 [id number] [facility] 2021-01-07 00:00:00 2021-01-07 00:00:00 Patient Secure Msg Lydia Karen [facility] 1.2.840.114 350.1.13.10 4.2.7.2.686 [id number] [facility] 2021-01-03 15:45:00 2021-01-03 15:45:00 Outpatient R KAREN BURNETT [facility] [id number] [facility] 2020-08-09 00:00:00 2020-08-09 00:00:00 [id number] 2020-06-18 10:00:00 2020-06-18 10:00:00 Outpatient R [facility] [id number] [facility] 2020-06-15 00:00:00 2020-06-15 00:00:00 Patient Secure Msg Jesse Dong [facility] [id number] 350.1.13.10 [id number] [facility] 2020-05-23 14:45:00 2020-05-23 14:45:00 Outpatient R KAREN BURNETT [facility] [id number] [facility] 2020-05-17 00:00:00 2020-05-17 00:00:00 Patient Secure Msg Doctor Unassigned, [place] [facility] 1.840.114 350.1.13.10 [id number] [id number] [facility] 2020-05-15 13:00:00 2020-05-15 13:00:00 Outpatient R [facility] [id number] [facility] 2020-05-11 13:30:00 2020-05-11 13:30:00 Outpatient R [facility] [id number] [facility] 2020-05-09 10:30:00 2020-05-09 10:30:00 Outpatient R KAREN BURNETT [facility] [id number] [facility] 2020-04-13 00:00:00 2020-04-13 00:00:00 Patient Secure Msg Doctor Unassigned, [place] [facility] 1.840.114 350.1.13.10 [id number] [id number] [facility] 2020-04-12 00:00:00 2020-04-12 00:00:00 Patient Secure Msg Doctor Unassigned, [place] [facility] [employer] [facility] 1.840.114 350.1.13.10 4.2.7.2.686 [id number] [facility] 2020-04-11 00:00:00 2020-04-11 00:00:00 Patient Secure Msg Doctor Unassigned, [place] [facility] [id number] [facility] 2020-04-04 09:45:00 2020-04-04 09:45:00 Outpatient R BRYN BRADLEY [facility] [id number] [facility] 2019-12-28 09:15:00 2019-12-28 09:15:00 Outpatient R YANICK LYLE [facility] [id number] [facility] 2019-12-28 05:38:00 2019-12-28 05:38:00 Outpatient FERGUSON_JO HN [facility] [id number] [facility] 2019-12-09 09:26:00 2019-12-09 09:26:00 Outpatient FERGUSON_JO HN [facility] [id number] [facility] 2019-08-04 13:30:00 2019-08-04 13:30:00 Outpatient R [facility] [id number] [facility] 2019-07-25 08:00:00 2019-07-25 08:00:00 Outpatient R AMRIA Hauser RENUKA [facility] [id number] [facility] 2019-07-18 14:00:00 2019-07-18 14:00:00 Outpatient R [facility] [id number] [facility] 2019-07-18 10:00:00 2019-07-18 10:00:00 Outpatient R AMIRA Hauser [facility] [id number] [facility] 2019-07-11 15:00:00 2019-07-11 15:00:00 Outpatient JESSE SHIELDS [facility] [id number] [facility] 2019-06-20 11:00:00 2019-06-20 11:00:00 Outpatient KAREN KEN [facility] [id number] [facility] 2019-05-10 08:56:42 2019-05-10 23:59:00 Outpatient CARL RIVERA [facility] [id number] [facility] 2019-04-28 14:00:00 2019-04-28 14:00:00 Outpatient AMNA BHANDARI [facility] [id number] [facility] 2019-04-18 15:00:00 2019-04-18 16:35:19 Outpatient RUSTAM RAVI [facility] [id number] [facility] 2019-04-14 15:30:00 2019-04-14 16:09:05 Outpatient P ISRAEL PEREZ SHANNON [facility] [id number] [facility] 2019-04-07 09:30:00 2019-04-07 14:57:02 Outpatient P LENNOX CABRERA [facility] [id number] [facility] 2019-01-27 15:00:00 2019-01-27 15:00:00 Outpatient P RUSTAM THRASHER [facility] [id number] [facility] 2019-01-26 14:30:00 2019-01-26 14:25:24 Outpatient P AZEB MORRISON [facility] [id number] [facility] 2018-12-30 10:00:00 2018-12-30 11:14:24 Outpatient P AMNA CLARK [facility] [id number] [facility] 2018-12-29 10:45:00 2018-12-29 10:45:00 Outpatient P KERENILDANISH Garcia [facility] [id number] [facility] Results Test Description Test Time Test Comments Results Result Co mments Source PAP TEST, THINPREP, [id number] 14:19:03* Test Item Value Reference Range Interpretation Comme nts SOURCE: (test code = 8001) Cervical/Endo cervical SLIDES: (test code = 8011) 1 LMP: (test code = 8021) 12/26/2022 SPECIMEN ADEQUACY: (test code = 13870) (NOTE) Satisfactory for evaluation. Endocervical cells/transformation zone component not identified. INTERPRETATION: (test code = 74500) NILM/NO EPITH. ABNORMALITY;S EE BELOW ---- NEGATIVE FOR INTRAEPITHELIAL LESION OR MALIGNANCY (NILM) - OTHER COMMENTS: (test code = 8081) (NOTE) Shift in hallie suggestive of bacterial vaginosis. GEAR SHAPER SET UP OPERATOR: (test code = 8101) HAYLIE Beach (ASCP) LOCATION: (test code = 38655) (NOTE) Specimens proces sed and interpreted at [facility], [address] [place] [address], , CLIA: [id number] CPT: (test code = 8140) (NOTE) 72368 UNLESS OTH ERWISE INDICATED, COMPUTER AIDED AND GEAR SHAPER SET UP OPERATOR SCREENING PERFORMED. The Pap test is a screening test with an inherent, but low probability of error. Your patient should be reminded to consult you immediately if she experiences any suspicious signs or symptoms, regardless of her Pap test result. An alternate report format containing images or consolidated prior Pap history is available as applicable. HPV HIGH RISK WITH GENOTYPE, [id number] 14:13:14* Test Item Value Reference Range Interpretation Comme nts HPV HIGH RISK INTERP (test code = 00908) NEGATIVE NEGATIVE HPV 16 (test code = 32104) NEGATIVE HPV 18 (test code = 69288) NEGATIVE HPV, HR, OTHER GENOTYPES (test code = 42109) NEGATIVE Testing methodol ogy is real-time PCR utilizing hydrolysis probes with the Kaiden Jenniffer 4800 system. The test individually detects genotypes 16 and 18, as well as the other 12 high risk types (31,33,35,39,45,51,52,56 ,58,59,66,68). The expected result is negative. A negative result does not rule out the presence of HPV not included in the genotype set, a low level of infection or specimen sampling error. UNLESS OTHERWISE INDICATED, ALL TESTING PERFORMED AT [facility] [address] [place] [address] INSIDE SALES ACCOUNT EXECUTIVE: CYNDEE MCPHERSON M.D. CLIA NUMBER [id number] [place]. [id number] VAGINAL PATHOGENS DNA [id number] 13:04:06* Test Item Value Reference Range Interpretation Comme nts DWIGHT SPECIES (test code = 77347) NEGATIVE NEGATIVE G. VAGINALIS (test code = 23728) POSITIVE NEGATIVE A T. VAGINALIS (test code = 15753) NEGATIVE NEGATIVE Note: The BD [facility] irm VPIII Microbial Identification Testis a DNA probe test intended for use in the detectionand identification of Dwight species, Gardnerellavaginalis and Trichomonas vaginalis nucleic acid. CT/NG, NAAT, [id number] 11:41:28* Test Item Value Reference Range Interpretation Comme nts CHLAMYDIA, NAAT, THINPREP (test code = 15306) NEGATIVE NEGATIVE A negative resul t does not exclude low level infection, specimensampling error, or collection error. Testing is performed with the Ka[employer] Jenniffer 6800/8800 systems usingreal-time Polymerase Chain Reaction (PCR) method. GONORRHEA, NAAT, THINPREP (test code = 96125) NEGATIVE NEGATIVE A negative resul t does not exclude low level infection, specimensampling error, or collection error. Testing is performed with the [employer]iden Jenniffer 6800/8800 systems usingreal-time Polymerase Chain Reaction (PCR) method. [id number] 05:38:12* Test Item Value Reference Range Interpretation Comme nts RPR RESULT (test code = 3501) NON-REACTIVE NON-REACTIVE RPR TITER (test code = 3500) NOT INDIC. TITER NOT INDIC. HIV 1/2 4TH GEN, RFLX [id number] 04:19:13* Test Item Value Reference Range Interpretation Comme nts HIV 1/2 4TH GEN, RFLX CONF ( test code = 3514) NON-REACTIVE NON-REACTIVE HEPATITIS PANEL, [id number] 04:19:13* Test Item Value Reference Range Interpretation Comme nts HEPATITIS A IgM (test code = 24165) NON-REACTIVE NON-REACTIVE HEPATITIS B CORE IgM (test code = 4644) NON-REACTIVE NON-REACTIVE HEPATITIS B SURF AG (test code = 2739) NON-REACTIVE NON-REACTIVE HEPATITIS C ANTIBODY (test code = 4675) NON-REACTIVE NON-REACTIVE INTERPRETATION HEPATITIS A: (test code = 2552) (NOTE) Hepatitis A serology shows no evidence of acute hepatitis A. INTERPRETATION HEPATITIS B: (test code = 50554) (NOTE) Hepatitis B serology shows no evidence of acute hepatitis B andno indication of exposure to hepatitis B virus in the previous kiko eight months. INTERPRETATION HEPATITIS C: (test code = 69621) (NOTE) Hepatitis C serology shows no evidence of exposure to hepatitisC virus at this time. It can take up to 12 months after exposure tothe hepatitis C virus for antibodies to become detectable in the blood in certain patients. HERPES SIMPLEX 1/2 AB, IgG [id number] 04:19:13* Test Item Value Reference Range Interpretation [facility]me [facility] HERPES SIMPLEX 1 AB, IgG (test code = 22971) 11.900 INDEX SEE BELOW H INTERPRETATION U NITS RANGE ----- ----- NON-REACTIVE INDEX <1.000 REACTIVE INDEX >=1.000 HERPES SIMPLEX 2 AB, IgG (test code = 93483) 21.200 INDEX SEE BELOW H INTERPRETATION U NITS RANGE ----- ----- NON-REACTIVE INDEX <1.000 REACTIVE INDEX >=1.000 UNLESS OTHERWISE INDICATED, ALL TESTING PERFORMED AT [facility] [address] [place] [address] INSIDE SALES ACCOUNT EXECUTIVE: CYNDEE MCPHERSON M.D. [place] NUMBER [id number] [place]. [id number] PAP TEST, THINPREP, [id number] 12:31:46* Test Item Value Reference Range Interpretation Comme [facility] SOURCE: (test code = 8001) Cervical SLIDES: (test code = 8011) 1 LMP: (test code = 8021) NOT GIVEN SPECIMEN ADEQUACY: (test code = 82305) (NOTE) Satisfactory for evaluation. Endocervical cells/transformation zone component present. INTERPRETATION: (test code = 09284) NILM/NO EPITH. ABNORMALITY;SEE BELOW --- - NEGATIVE FOR INTRAEPITHELIAL LESION OR MALIGNANCY (NILM) ---- GEAR SHAPER SET UP OPERATOR : (test code = 8101) HAYLIE Beach (ASCP) LOCATION: (test code = 55618) (NOTE) Specimens proces sed and interpreted at [facility], [address] [place] [address], , CLIA: [id number] CPT: (test code = 8140) (NOTE) 26195 UNLESS OTH ERWISE INDICATED, COMPUTER AIDED AND GEAR SHAPER SET UP OPERATOR SCREENING PERFORMED. The Pap test is a screening test with an inherent, but low probability of error. Your patient should be reminded to consult you immediately if she experiences any suspicious signs or symptoms, regardless of her Pap test result. An alternate report format containing images or consolidated prior Pap history is available as applicable. HPV HIGH RISK WITH GENOTYPE, [id number] 12:26:32* Test Item Value Reference Range Interpretation Comme nts HPV HIGH RISK INTERP (test code = 44047) NEGATIVE NEGATIVE HPV 16 (test code = 98568) NEGATIVE HPV 18 (test code = 52914) NEGATIVE HPV, HR, OTHER GENOTYPES (test code = 20722) NEGATIVE Testing methodol ogy is real-time PCR utilizing hydrolysis probes with the Kaiden Jenniffer 4800 system. The test individually detects genotypes 16 and 18, as well as the other 12 high risk types (31,33,35,39,45,51,52,56 ,58,59,66,68). The expected result is negative. A negative result does not rule out the presence of HPV not included in the genotype set, a low level of infection or specimen sampling error. UNLESS OTHERWISE INDICATED, ALL TESTING PERFORMED [facility] [address] [place] [address] INSIDE SALES ACCOUNT EXECUTIVE: TERRI MCCRARY M.D. CLIA NUMBER [id number] [place]. [id number] CT/NG, NAAT, [id number] 17:17:22* Test Item Value Reference Range Interpretation Comme nts CHLAMYDIA, NAAT, THINPREP (test code = 83002) NEGATIVE NEGATIVE A negative resul t does not exclude low level infection, specimensampling error, or collection error. Testing is performed with the Kaiden Jenniffer AppLayer0/8800 systems usingreal-time Polymerase Chain Reaction (PCR) method. GONORRHEA, NAAT, THINPREP (test code = 78414) NEGATIVE NEGATIVE A negative resul t does not exclude low level infection, specimensampling error, or collection error. Testing is performed with the Kaiden Jenniffer 6800/8800 systems usingreal-time Polymerase Chain Reaction (PCR) method. VAGINAL PATHOGENS DNA [id number] 12:33:41* Test Item Value Reference Range Interpretation Comme nts DWIGHT SPECIES (test code = 35222) NEGATIVE NEGATIVE G. VAGINALIS (test code = 86686) POSITIVE NEGATIVE A T. VAGINALIS (test code = 28304) NEGATIVE NEGATIVE Note: The [employer] VPIII Microbial Identification Testis a DNA probe test intended for use in the detectionand identification of Dwight species, Gardnerellavaginalis and Trichomonas vaginalis nucleic acid. HIV 1/2 4TH GEN, RFLX [id number] 03:14:00* Test Item Value Reference Range Interpretation Comme nts HIV 1/2 4TH GEN, RFLX CONF ( test code = 3514) NON-REACTIVE NON-REACTIVE HEPATITIS PANEL, [id number] 03:14:00* Test Item Value Reference Range Interpretation Comme nts HEPATITIS A IgM (test code = 88861) NON-REACTIVE NON-REACTIVE HEPATITIS B CORE IgM (test code = 4644) NON-REACTIVE NON-REACTIVE HEPATITIS B SURF AG (test code = 2739) NON-REACTIVE NON-REACTIVE HEPATITIS C ANTIBODY (test code = 4675) NON-REACTIVE NON-REACTIVE INTERPRETATION HEPATITIS A: (test code = 2552) (NOTE) Hepatitis A sero logy shows no evidence of acute hepatitis A. INTERPRETATION HEPATITIS B: (test code = 68188) (NOTE) Hepatitis B sero logy shows no evidence of acute hepatitis B andno indication of exposure to hepatitis B virus in the previous kiko eight months. INTERPRETATION HEPATITIS C: (test code = 28753) (NOTE) Hepatitis C sero logy shows no evidence of exposure to hepatitisC virus at this time. It can take up to 12 months after exposure tothe hepatitis C virus for antibodies to become detectable in the blood in certain patients. UNLESS OTHERWISE INDICATED, ALL TESTING PERFORMED [facility] [employer] [address] [place] [address] INSIDE SALES ACCOUNT EXECUTIVE: TERRI MCCRARY M.D. [place] NUMBER [id number] [place]. [id number] 02:43:33* Test Item Value Reference Range Interpretation Comme nts RPR RESULT (test code = 3501) NON-REACTIVE NON-REACTIVE RPR TITER (test code = 3500) NOT INDIC. TITER NOT INDIC. COMP. METABOLIC PANEL (46868)2021-09-23 19:42:47* Test Item Value Reference Range Interpretation Comme nts NA (test code = 9102907498) 138 mmol/L 135-145 K (test code = 9439393310) 4.8 mmol/L 3.5-5.0 CL (test code = 7104654209) 102 mmol/L 98-108 CO2 TOTAL (test code = 9338007804) 25 mmol/L 23-31 AGAP (test code = 8403856036) 2-16 BUN (test code = 4276457744) 15 mg/dL 7-23 GLUCOSE (test code = 9311251793) 90 mg/dL 70-110 CREATININE (test code = 2065335983) 0.64 mg/dL 0.50-1.04 TOTAL BILI (test code = 5828177594) 0.8 mg/dL 0.1-1.1 CALCIUM (test code = 3605559337) 9.9 mg/dL 8.6-10.6 T PROTEIN (test code = 7539206303) 7.8 g/dL 6.3-8.2 ALBUMIN (test code = 2408492826) 5.0 g/dL 3.5-5.0 ALK PHOS (test code = 5593961944) 84 U/L 34-122 ALTv (test code = 1742-6) 14 U/L 5-35 AST(SGOT) (test code = 1478196340) 23 U/L 13-40 eGFR (test code = 5164175326) mL/min/1.73m2 [place] (test code = [place]) Association [...] or urine or abnormalities in imaging tests). [facility] WITH [id number] 19:29:29* Test Item Value Reference Range Interpretation Comme nts WBC (test code = 6690-2) See_Comment [[employer]] The system which generated this result transmitted reference range: 4.30 - 11.10 10*3/?L. The reference range was not used to interpret this result as normal/abnormal. RBC (test code = 789-8) See_Comment [[employer]] The system which generated this result transmitted reference range: 3.93 - 5.25 10*6/?L. The reference range was not used to interpret this result as normal/abnormal. HGB (test code = 718-7) 15.2 g/dL 11.6-15.0 H HCT (test code = 4544-3) 44.7 % 35.7-45.2 MCV (test code = 787-2) 93.3 fL 80.6-95.5 MCH (test code = 785-6) 31.7 pg 25.9-32.8 MCHC (test code = 786-4) 34.0 g/dL 31.6-35.1 RDW-SD (test code = 17496-0) 42.0 fL 39.0-49.9 RDW-CV (test code = 788-0) 12.1 % 12.0-15.5 PLT (test code = 777-3) See_Comment [Automated messa ge] The system which generated this result transmitted reference range: 166 - 358 10*3/?L. The reference range was not used to interpret this result as normal/abnormal. MPV (test code = 20114-1) 10.0 fL 9.5-12.9 NRBC/100 WBC (test code = 3879479219) See_Comment [Automated [employer] ssage] The system which generated this result transmitted reference range: 0.0 - 10.0 /100 WBCs. The reference range was not used to interpret this result as normal/abnormal. NRBC x10^3 (test code = 8792784371) <0.01 See_Comment [Automated messa ge] The system which generated this result transmitted reference range: 10*3/?L. The reference range was not used to interpret this result as normal/abnormal. GRAN MAT (NEUT) % (test code = 770-8) 65.5 % IMM GRAN % (test code = 2841798772) 0.40 % LYMPH % (test code = 736-9) 20.6 % MONO % (test code = 5905-5) 10.5 % EOS % (test code = 713-8) 2.1 % BASO % (test code = 706-2) 0.9 % GRAN MAT x10^3(ANC) (test code = 3066884084) 5.61 10*3/uL 1.88-7.09 IMM GRAN x10^3 (test code = 2788438485) 0.03 10*3/uL 0.00-0.06 LYMPH x10^3 (test code = 731-0) 1.76 10*3/uL 1.32-3.29 MONO x10^3 (test code = 742-7) 0.90 10*3/uL 0.33-0.92 EOS x10^3 (test code = 711-2) 0.18 10*3/uL 0.03-0.39 BASO x10^3 (test code = 704-7) 0.08 10*3/uL 0.01-0.07 H Lab Interpretation (test code = 36019-4) Abnormal [facility] [id number] 18:47:00* Test Item Value Reference Range Interpretation Comme nts POCT PREG (test code = 1605) Negative On board controls acceptable with C Line (test code = 3574) Present POCT PREG LOT # (test code = 3575) [id number] POCT PREG TEST DATE ( test code = 3576) 02-24-2023 Lab Interpretation (test cod e = 54429-5) Normal [facility] [id number] 11:20:57* Test Item Value Reference Range Interpretation Comments DIAGNOSIS: (test code = 8200) (NOTE) A) Polypectomy - EndocervixBenign inactive endometrium and benign endocervical tissue. B) Biopsy - Cervix, 3 o'clockCervical transformation zone with chronic cervicitis and reactiveepithelial changes. C) Biopsy - Cervix, 6 o'clockSquamous mucosa with acute and chronic inflammation and reactivecellular changes. D) Biopsy - Cervix, 9 o'clockBenign squamous mucosa; no transformation zone present. E) Biopsy - Cervix, 11 o'clockCervical transformation zone with chronic cervicitis and reactiveepithelial changes. COMMENTS: (test code = 8205) (NOTE) The previously r eported abnormal Pap (accession # [id number]) isreviewed. The atypical cells identified on the Pap slidecorrelate with the biopsy findings. MICROSCOPIC DESCRIPTION: (test code = 8210) (NOTE) A) The endometri um shows benign glands lined by a low columnarepithelium with scant cytoplasm, aligned nuclei and nosignificant mitotic activity. These are surrounded byunremarkable stroma. The sample contains minimal endocervicalglandular epithelium. No atypia or polyp is noted. B) Cervical transformation zone mucosa shows chronic inflammationand mild reactive cellular changes. A stain for p16 is performedwith an appropriately staining positive control and is negativein the patient tissue. No dysplasia or malignancy is identified. C) Cervical squamous mucosa is present without contiguoustransformation zone. Endocervical glands are seen in theunderlying stroma. There is mild acute and chronic inflammationwith reactive cellular changes. A stain for p16 is performedwith an appropriately staining positive control and is negativein the patient tissue. No dysplasia or malignancy is seen. D) The biopsy consists of benign squamous mucosa. Squamocolumnartransformation zone is not identified in the biopsy. A stain forp16 is performed with an appropriately staining positive controland is negative in the patient tissue. There is no atypia,dysplasia, or malignancy. E) Cervical transformation zone mucosa shows chronic inflammationand mild reactive cellular changes. A stain for p16 is performedwith an appropriately staining positive control and is negativein the patient tissue. No dysplasia or malignancy is identified. CLINICAL DATA: (test code = 8401) (NOTE) Not specified. GROSS DESCRIPTION: (test code = 8220) (NOTE) A) SPECIMEN LABE LED: EndocervixSIZE/WEIGHT: 0.8x0.7x0.1 cm AggregateSPECIMEN COLOR: TanNUMBER OF TISSUE PIECES: multipleSUBMITTED IN CASSETTE(S): [id number]: FormalinCOMMENTS:Filtered and entirely submitted. B) SPECIMEN LABELED: Cervix, 3 o'clockSIZE/WEIGHT: 0.3x0.2x0.1 cm AggregateSPECIMEN COLOR: TanNUMBER OF TISSUE PIECES: multipleSUBMITTED IN CASSETTE(S): [id number]: FormalinCOMMENTS:Entirely submitted intact. C) SPECIMEN LABELED: Cervix, 6 o'clockSIZE/WEIGHT: 0.3x0.2x0.1 cm SPECIMEN COLOR: TanNUMBER OF TISSUE PIECES: 1SUBMITTED IN CASSETTE(S): [id number]: FormalinCOMMENTS:Entirely submitted intact. D) SPECIMEN LABELED: Cervix, 9 o'clockSIZE/WEIGHT: 0.3x0.2x0.1 cm SPECIMEN COLOR: TanNUMBER OF TISSUE PIECES: 1SUBMITTED IN CASSETTE(S): [id number]: FormalinCOMMENTS:Entirely submitted intact. E) SPECIMEN LABELED: Cervix, 11 o'clockSIZE/WEIGHT: 0.4x0.3x0.3 cm SPECIMEN COLOR: TanNUMBER OF TISSUE PIECES: 1SUBMITTED IN CASSETTE(S): [id number]: FormalinCOMMENTS:Entirely submitted intact. PATHOLOGIST: (test code = 8250) (NOTE) Charisma galan Specimens processed at [facility], [address] [place] [address], , CLIA: [id number] interpreted at [facility], [address] [place] [address], , CLIA: [id number] DISCLAIMER (test code = 56722) (NOTE) IHC antibodies a re interpreted in the presence of appropriatelyfunctioning controls unless otherwise noted. CPT: (test code = 8400) (NOTE) 73316j1, 74062c0 UNLESS OTHERWISE INDICATED, ALL TESTING PERFORMED [facility] [employer] [employer] [address] [place] [address] INSIDE SALES ACCOUNT EXECUTIVE: TERRI MCCRARY M.D. CLIA NUMBER [id number] [place] [id number] SURGICAL PATHOLOGY [id number] 00:00:00* Test Item Value Reference Range Interpretation Comme nts DIAGNOSIS: (test code = 8200) (NOTE) COMMENTS: (test code = 8205) (NOTE) MICROSCOPIC DESCRIPTION: (te st code = 8210) (NOTE) CLINICAL DATA: (test code = 8401) (NOTE) GROSS DESCRIPTION: (test code = 8220) (NOTE) PATHOLOGIST: (test code = 8250) (NOTE) DISCLAIMER (test code = 64277) (NOTE) CPT: (test code = 8400) (NOTE) SURGICAL PATHOLOGY [id number] 00:00:00* Test Item Value Reference Range Interpretation Comme nts DIAGNOSIS: (test code = 8200) (NOTE) COMMENTS: (test code = 8205) (NOTE) MICROSCOPIC DESCRIPTION: (te st code = 8210) (NOTE) CLINICAL DATA: (test code = 8401) (NOTE) GROSS DESCRIPTION: (test code = 8220) (NOTE) PATHOLOGIST: (test code = 8250) (NOTE) DISCLAIMER (test code = 99624) (NOTE) CPT: (test code = 8400) (NOTE) SURGICAL PATHOLOGY [id number] 00:00:00* Test Item Value Reference Range Interpretation Comme nts DIAGNOSIS: (test code = 8200) (NOTE) COMMENTS: (test code = 8205) (NOTE) MICROSCOPIC DESCRIPTION: (te st code = 8210) (NOTE) CLINICAL DATA: (test code = 8401) (NOTE) GROSS DESCRIPTION: (test code = 8220) (NOTE) PATHOLOGIST: (test code = 8250) (NOTE) DISCLAIMER (test code = 18376) (NOTE) CPT: (test code = 8400) (NOTE) SURGICAL PATHOLOGY [id number] 00:00:00* Test Item Value Reference Range Interpretation Comme nts DIAGNOSIS: (test code = 8200) (NOTE) COMMENTS: (test code = 8205) (NOTE) MICROSCOPIC DESCRIPTION: (te st code = 8210) (NOTE) CLINICAL DATA: (test code = 8401) (NOTE) GROSS DESCRIPTION: (test code = 8220) (NOTE) PATHOLOGIST: (test code = 8250) (NOTE) DISCLAIMER (test code = 19427) (NOTE) CPT: (test code = 8400) (NOTE) SURGICAL PATHOLOGY [id number] 00:00:00* Test Item Value Reference Range Interpretation Comme nts DIAGNOSIS: (test code = 8200) (NOTE) COMMENTS: (test code = 8205) (NOTE) MICROSCOPIC DESCRIPTION: (te st code = 8210) (NOTE) CLINICAL DATA: (test code = 8401) (NOTE) GROSS DESCRIPTION: (test code = 8220) (NOTE) PATHOLOGIST: (test code = 8250) (NOTE) DISCLAIMER (test code = 82375) (NOTE) CPT: (test code = 8400) (NOTE) PAP TEST, THINPREP, [id number] 11:12:17* Test Item Value Reference Range Interpretation Comme nts SOURCE: (test code = 8001) Cervical/Endo cervical SLIDES: (test code = 8011) 1 LMP: (test code = 8021) 08/05/2021 SPECIMEN ADEQUACY: (test code = 96846) (NOTE) Satisfactory for evaluation. Endocervical cells/transformation zone component present. INTERPRETATION: (test code = 61204) ASCUS/EPITH. ABNORMALITY; SEE BELOW A -- ---- EPITHELIAL CELL ABNORMALITY Atypical squamous cells of undetermined significance (ASC-US) OTHER COMMENTS: (test code = 8081) (NOTE) Possible celis ges of Herpes virus present. Recommend PCR orculture for confirmation. PCR may be performed on this samplewithin 21 days of collection. Please contact [facility] Customer Serviceat [phone]. GEAR SHAPER SET UP OPERATOR: (test code = 8101) HAYLIE Anderson(ASC P) PATHOLOGIST INTERPRETATION BY: (test code = 8122) Dylan Holland LOCATION: (test code = 11341) (NOTE) Specimens proces sed at [facility], [address] [place] [id number], , CLIA: [id number] interpreted at [facility], [address] [place] [address], , CLIA: [id number] CPT: (test code = 8140) (NOTE) [address], [address] UNL ESS OTHERWISE INDICATED, COMPUTER AIDED AND GEAR SHAPER SET UP OPERATOR SCREENING PERFORMED. The Pap test is a screening test with an inherent, but low probability of error. Your patient should be reminded to consult you immediately if she experiences any suspicious signs or symptoms, regardless of her Pap test result. An alternate report format containing images or consolidated prior Pap history is available as applicable. PAP TEST, THINPREP, [id number] 00:00:00* Test Item Value Reference Range Interpretation Comme nts SOURCE: (test code = 8001) Cervical/Endo cervic al SLIDES: (test code = 8011) 1 LMP: (test code = 8021) 08/05/2021 SPECIMEN ADEQUACY: (test code = 42754) (NOTE) INTERPRETATION: (test code = 79429) ASCUS/EPITH. ABNORMALITY; SEE BELOW OTHER COMMENTS: (test code = 8081) (NOTE) GEAR SHAPER SET UP OPERATOR: (test code = 8101) HAYLIE Anderson(ASCP) PATHOLOGIST INTERPRETATION BY: (test code = 8122) Dylan Holland LOCATION: (test code = 07329) (NOTE) CPT: (test code = 8140) (NOTE) PAP TEST, THINPREP, [id number] 00:00:00* Test Item Value Reference Range Interpretation Comme nts SOURCE: (test code = 8001) Cervical/Endo cervic al SLIDES: (test code = 8011) 1 LMP: (test code = 8021) 08/05/2021 SPECIMEN ADEQUACY: (test code = 99810) (NOTE) INTERPRETATION: (test code = 98623) ASCUS/EPITH. ABNORMALITY; SEE BELOW OTHER COMMENTS: (test code = 8081) (NOTE) GEAR SHAPER SET UP OPERATOR: (test code = 8101) HAYLIE Anderson(ASCP) PATHOLOGIST INTERPRETATION BY: (test code = 8122) Dylan Holland LOCATION: (test code = 13050) (NOTE) CPT: (test code = 8140) (NOTE) PAP TEST, THINPREP, [id number] 00:00:00* Test Item Value Reference Range Interpretation Comme nts SOURCE: (test code = 8001) Cervical/Endo cervic al SLIDES: (test code = 8011) 1 LMP: (test code = 8021) 08/05/2021 SPECIMEN ADEQUACY: (test code = 07544) (NOTE) INTERPRETATION: (test code = 14114) ASCUS/EPITH. ABNORMALITY; SEE BELOW OTHER COMMENTS: (test code = 8081) (NOTE) GEAR SHAPER SET UP OPERATOR: (test code = 8101) HAYLIE Anderson(ASCP) PATHOLOGIST INTERPRETATION BY: (test code = 8122) Dylan Holland LOCATION: (test code = 44443) (NOTE) CPT: (test code = 8140) (NOTE) PAP TEST, THINPREP, [id number] 00:00:00* Test Item Value Reference Range Interpretation Comme nts SOURCE: (test code = 8001) Cervical/Endo cervic al SLIDES: (test code = 8011) 1 LMP: (test code = 8021) 08/05/2021 SPECIMEN ADEQUACY: (test code = 81937) (NOTE) INTERPRETATION: (test code = 99399) ASCUS/EPITH. ABNORMALITY; SEE BELOW OTHER COMMENTS: (test code = 8081) (NOTE) GEAR SHAPER SET UP OPERATOR: (test code = 8101) HAYLIE Anderson(ASCP) PATHOLOGIST INTERPRETATION BY: (test code = 8122) Dylan Holland LOCATION: (test code = 23425) (NOTE) CPT: (test code = 8140) (NOTE) PAP TEST, THINPREP, [id number] 00:00:00* Test Item Value Reference Range Interpretation Comme nts SOURCE: (test code = 8001) Cervical/Endo cervic al SLIDES: (test code = 8011) 1 LMP: (test code = 8021) 08/05/2021 SPECIMEN ADEQUACY: (test code = 99902) (NOTE) INTERPRETATION: (test code = 17901) ASCUS/EPITH. ABNORMALITY; SEE BELOW OTHER COMMENTS: (test code = 8081) (NOTE) GEAR SHAPER SET UP OPERATOR: (test code = 8101) HAYLIE Anderson(ASCP) PATHOLOGIST INTERPRETATION BY: (test code = 8122) Dylan Holland LOCATION: (test code = 46983) (NOTE) CPT: (test code = 8140) (NOTE) CT/NG, TMA, [id number] 19:19:14* Test Item Value Reference Range Interpretation Comme nts GONORRHEA, TMA (test code = 82094) NEGATIVE NEGATIVE Assay methodolog y is nucleic acid amplification by district plant superintendent mediated amplification (TMA) utilizing the Aptima Combo 2 Assay. CHLAMYDIA, TMA (test code = 68371) NEGATIVE NEGATIVE Assay methodolog y is nucleic acid amplification by district plant superintendent mediated amplification (TMA) utilizing the Aptima Combo 2 Assay. HPV HIGH RISK WITH GENOTYPE, [id number] 16:29:18* Test Item Value Reference Range Interpretation Comme nts HPV HIGH RISK INTERP (test code = 69799) POSITIVE NEGATIVE A HPV 16 (test code = 24595) NEGATIVE HPV 18 (test code = 15630) NEGATIVE HPV, HR, OTHER GENOTYPES (test code = 07530) POSITIVE A Testing methodol ogy is real-time PCR utilizing hydrolysis probes with the Kaiden Jenniffer 4800 system. The test individually detects genotypes 16 and 18, as well as the other 12 high risk types (31,33,35,39,45,51,52,56 ,58,59,66,68). The expected result is negative. A negative result does not rule out the presence of HPV not included in the genotype set, a low level of infection or specimen sampling error. UNLESS OTHERWISE INDICATED, ALL TESTING PERFORMED [facility] [employer] [address] [place] [address] INSIDE SALES ACCOUNT EXECUTIVE: TERRI MCCRARY M.D. CLIA NUMBER [id number] [place]. [id number] VAGINAL PATHOGENS DNA [id number] 14:49:20* Test Item Value Reference Range Interpretation Comme nts DWIGHT SPECIES (test code = 81751) NEGATIVE NEGATIVE G. VAGINALIS (test code = 47089) POSITIVE NEGATIVE A T. VAGINALIS (test code = 42256) NEGATIVE NEGATIVE UNLESS OTHERWISE INDICATED, ALL TESTING PERFORMED [facility] PATHOLOGY [employer], [facility]. [address] [place] [address] INSIDE SALES ACCOUNT EXECUTIVE: TERRI MCCRARY M.D. CLIA NUMBER [id number] [place]. [id number] HIV 1/2 4TH GEN, RFLX [id number] 05:59:23* Test Item Value Reference Range Interpretation Comme nts HIV 1/2 4TH GEN, RFLX CONF ( test code = 3514) NON-REACTIVE NON-REACTIVE HEPATITIS PANEL, [id number] 05:59:23* Test Item Value Reference Range Interpretation Comme nts HEPATITIS A IgM (test code = 25885) NON-REACTIVE NON-REACTIVE HEPATITIS B CORE IgM (test code = 4644) NON-REACTIVE NON-REACTIVE HEPATITIS B SURF AG (test code = 2739) NON-REACTIVE NON-REACTIVE HEPATITIS C ANTIBODY (test code = 4675) NON-REACTIVE NON-REACTIVE INTERPRETATION HEPATITIS A: (test code = 2552) (NOTE) Hepatitis A serology shows no evidence of acute hepatitis A. INTERPRETATION HEPATITIS B: (test code = 10091) (NOTE) Hepatitis B serology shows no evidence of acute hepatitis B andno indication of exposure to hepatitis B virus in the previous kiko eight months. INTERPRETATION HEPATITIS C: (test code = 49504) (NOTE) Hepatitis C serology shows no evidence of exposure to hepatitisC virus at this time. It can take up to 12 months after exposure tothe hepatitis C virus for antibodies to become detectable in the blood in certain patients. [id number] 05:28:14* Test Item Value Reference Range Interpretation Comme nts RPR RESULT (test code = 3501) NON-REACTIVE NON-REACTIVE RPR TITER (test code = 3500) NOT INDIC. TITER NOT INDIC. HPV HIGH RISK WITH GENOTYPE, [id number] 00:00:00* Test Item Value Reference Range Interpretation Comme nts HPV HIGH RISK INTERP (test c ode = 10106) POSITIVE HPV 16 (test code = 48111) NEGATIVE HPV 18 (test code = 82086) NEGATIVE HPV, HR, OTHER GENOTYPES (te st code = 97901) POSITIVE [id number] 00:00:00* Test Item Value Reference Range Interpretation Comme nts RPR RESULT (test code = 3501) NON-REACTIVE RPR TITER (test code = 3500) NOT INDIC. TITER VAGINAL PATHOGENS DNA PANEL [ADDED]2021-08-16 00:00:00* Test Item Value Reference Range Interpretation Comme nts DWIGHT SPECIES (test code = ) NEGATIVE G. VAGINALIS (test code = 89698) POSITIVE T. VAGINALIS (test code = 60861) NEGATIVE VAGINAL PATHOGENS DNA PANEL [ADDED]2021-08-16 00:00:00* Test Item Value Reference Range Interpretation Comme nts DWIGHT SPECIES (test code = ) NEGATIVE G. VAGINALIS (test code = 58739) POSITIVE T. VAGINALIS (test code = 36049) NEGATIVE HIV AB/AG COMBO RFLX [id number] 00:00:00* Test Item Value Reference Range Interpretation Comme nts HIV 1/2 4TH GEN, RFLX CONF ( test code = 3514) NON-REACTIVE GC AND CHLAMYDIA AMPLIFIED, [id number] 00:00:00* Test Item Value Reference Range Interpretation Comme nts GONORRHEA, TMA (test code = 52540) NEGATIVE CHLAMYDIA, TMA (test code = 84820) NEGATIVE ACUTE HEPATITIS [id number] 00:00:00* Test Item Value Reference Range Interpretation Comme nts HEPATITIS A IgM (test code = 12196) NON-REACTIVE HEPATITIS B CORE IgM (test c ode = 4644) NON-REACTIVE HEPATITIS B SURF AG (test co de = 2739) NON-REACTIVE HEPATITIS C ANTIBODY (test c ode = 4675) NON-REACTIVE INTERPRETATION HEPATITIS A: (test code = 2552) (NOTE) INTERPRETATION HEPATITIS B: (test code = 21569) (NOTE) INTERPRETATION HEPATITIS C: (test code = 88590) (NOTE) HPV HIGH RISK WITH GENOTYPE, [id number] 00:00:00* Test Item Value Reference Range Interpretation Comme nts HPV HIGH RISK INTERP (test c ode = 32314) POSITIVE HPV 16 (test code = 11503) NEGATIVE HPV 18 (test code = 46301) NEGATIVE HPV, HR, OTHER GENOTYPES (te st code = 42213) POSITIVE [id number] 00:00:00* Test Item Value Reference Range Interpretation Comme nts RPR RESULT (test code = 3501) NON-REACTIVE RPR TITER (test code = 3500) NOT INDIC. TITER [id number] 00:00:00* Test Item Value Reference Range Interpretation Comme nts RPR RESULT (test code = 3501) NON-REACTIVE RPR TITER (test code = 3500) NOT INDIC. TITER VAGINAL PATHOGENS DNA PANEL [ADDED]2021-08-16 00:00:00* Test Item Value Reference Range Interpretation Comme nts DWIGHT SPECIES (test code = 08116) NEGATIVE G. VAGINALIS (test code = 73849) POSITIVE T. VAGINALIS (test code = 49854) NEGATIVE HIV AB/AG COMBO RFLX [id number] 00:00:00* Test Item Value Reference Range Interpretation Comme nts HIV 1/2 4TH GEN, RFLX CONF ( test code = 3514) NON-REACTIVE GC AND CHLAMYDIA AMPLIFIED, [id number] 00:00:00* Test Item Value Reference Range Interpretation Comme nts GONORRHEA, TMA (test code = 92958) NEGATIVE CHLAMYDIA, TMA (test code = 86316) NEGATIVE GC AND CHLAMYDIA AMPLIFIED, [id number] 00:00:00* Test Item Value Reference Range Interpretation Comme nts GONORRHEA, TMA (test code = 83945) NEGATIVE CHLAMYDIA, TMA (test code = 68416) NEGATIVE HIV AB/AG COMBO RFLX [id number] 00:00:00* Test Item Value Reference Range Interpretation Comme nts HIV 1/2 4TH GEN, RFLX CONF ( test code = 3514) NON-REACTIVE ACUTE HEPATITIS [id number] 00:00:00* Test Item Value Reference Range Interpretation Comme nts HEPATITIS A IgM (test code = 52838) NON-REACTIVE HEPATITIS B CORE IgM (test c ode = 4644) NON-REACTIVE HEPATITIS B SURF AG (test co de = 1339) NON-REACTIVE HEPATITIS C ANTIBODY (test c ode = 4675) NON-REACTIVE INTERPRETATION HEPATITIS A: (test code = 2552) (NOTE) INTERPRETATION HEPATITIS B: (test code = 71483) (NOTE) INTERPRETATION HEPATITIS C: (test code = 33825) (NOTE) ACUTE HEPATITIS [id number] 00:00:00* Test Item Value Reference Range Interpretation Comme nts HEPATITIS A IgM (test code = 58444) NON-REACTIVE HEPATITIS B CORE IgM (test c ode = 4644) NON-REACTIVE HEPATITIS B SURF AG (test co de = 2739) NON-REACTIVE HEPATITIS C ANTIBODY (test c ode = 4675) NON-REACTIVE INTERPRETATION HEPATITIS A: (test code = 2552) (NOTE) INTERPRETATION HEPATITIS B: (test code = 85373) (NOTE) INTERPRETATION HEPATITIS C: (test code = 83837) (NOTE) [id number] 00:00:00* Test Item Value Reference Range Interpretation Comme nts RPR RESULT (test code = 3501) NON-REACTIVE RPR TITER (test code = 3500) NOT INDIC. TITER HPV HIGH RISK WITH GENOTYPE, [id number] 00:00:00* Test Item Value Reference Range Interpretation Comme nts HPV HIGH RISK INTERP (test c ode = 75454) POSITIVE HPV 16 (test code = 95216) NEGATIVE HPV 18 (test code = 41419) NEGATIVE HPV, HR, OTHER GENOTYPES (te st code = 58311) POSITIVE HPV HIGH RISK WITH GENOTYPE, [id number] 00:00:00* Test Item Value Reference Range Interpretation Comme nts HPV HIGH RISK INTERP (test c ode = 63418) POSITIVE HPV 16 (test code = 69966) NEGATIVE HPV 18 (test code = 43773) NEGATIVE HPV, HR, OTHER GENOTYPES (te st code = 84202) POSITIVE [id number] 00:00:00* Test Item Value Reference Range Interpretation Comme nts RPR RESULT (test code = 3501) NON-REACTIVE RPR TITER (test code = 3500) NOT INDIC. TITER [id number] 00:00:00* Test Item Value Reference Range Interpretation Comme nts RPR RESULT (test code = 3501) NON-REACTIVE RPR TITER (test code = 3500) NOT INDIC. TITER VAGINAL PATHOGENS DNA PANEL [ADDED]2021-08-16 00:00:00* Test Item Value Reference Range Interpretation Comme nts DWIGHT SPECIES (test code = 78773) NEGATIVE G. VAGINALIS (test code = ) POSITIVE T. VAGINALIS (test code = 35244) NEGATIVE VAGINAL PATHOGENS DNA PANEL [ADDED]2021-08-16 00:00:00* Test Item Value Reference Range Interpretation Comme nts DWIGHT SPECIES (test code = ) NEGATIVE G. VAGINALIS (test code = ) POSITIVE T. VAGINALIS (test code = ) NEGATIVE HIV AB/AG COMBO RFLX [id number] 00:00:00* Test Item Value Reference Range Interpretation Comme nts HIV 1/2 4TH GEN, RFLX CONF ( test code = 3514) NON-REACTIVE HIV AB/AG COMBO RFLX [id number] 00:00:00* Test Item Value Reference Range Interpretation Comme nts HIV 1/2 4TH GEN, RFLX CONF ( test code = 3514) NON-REACTIVE GC AND CHLAMYDIA AMPLIFIED, [id number] 00:00:00* Test Item Value Reference Range Interpretation Comme nts GONORRHEA, TMA (test code = 97311) NEGATIVE CHLAMYDIA, TMA (test code = 44590) NEGATIVE GC AND CHLAMYDIA AMPLIFIED, [id number] 00:00:00* Test Item Value Reference Range Interpretation Comme nts GONORRHEA, TMA (test code = 99732) NEGATIVE CHLAMYDIA, TMA (test code = 57832) NEGATIVE ACUTE HEPATITIS [id number] 00:00:00* Test Item Value Reference Range Interpretation Comme nts HEPATITIS A IgM (test code = 94306) NON-REACTIVE HEPATITIS B CORE IgM (test c ode = 4644) NON-REACTIVE HEPATITIS B SURF AG (test co de = 2739) NON-REACTIVE HEPATITIS C ANTIBODY (test c ode = 4675) NON-REACTIVE INTERPRETATION HEPATITIS A: (test code = 2552) (NOTE) INTERPRETATION HEPATITIS B: (test code = 42167) (NOTE) INTERPRETATION HEPATITIS C: (test code = 25895) (NOTE) ACUTE HEPATITIS [id number] 00:00:00* Test Item Value Reference Range Interpretation Comme nts HEPATITIS A IgM (test code = 32506) NON-REACTIVE HEPATITIS B CORE IgM (test c ode = 4644) NON-REACTIVE HEPATITIS B SURF AG (test co de = 2739) NON-REACTIVE HEPATITIS C ANTIBODY (test c ode = 4675) NON-REACTIVE INTERPRETATION HEPATITIS A: (test code = 2552) (NOTE) INTERPRETATION HEPATITIS B: (test code = 78557) (NOTE) INTERPRETATION HEPATITIS C: (test code = 72750) (NOTE) [id number] 00:00:00* Test Item Value Reference Range Interpretation Comme nts RPR RESULT (test code = 3501) NON-REACTIVE RPR TITER (test code = 3500) NOT INDIC. TITER [id number] 00:00:00* Test Item Value Reference Range Interpretation Comme nts RPR RESULT (test code = 3501) NON-REACTIVE RPR TITER (test code = 3500) NOT INDIC. TITER HPV HIGH RISK WITH GENOTYPE, [id number] 00:00:00* Test Item Value Reference Range Interpretation Comme nts HPV HIGH RISK INTERP (test c ode = 89651) POSITIVE HPV 16 (test code = 53799) NEGATIVE HPV 18 (test code = 24328) NEGATIVE HPV, HR, OTHER GENOTYPES (te st code = 14544) POSITIVE CBC W/AUTO DIFF WITH [id number] 12:09:41* Test Item Value Reference Range Interpretation Comme nts WBC (test code = 1001) 7.2 K/UL 3.5-11.0 RBC (test code = 1002) 4.17 M/UL 3.80-5.40 HEMOGLOBIN (test code = 1003) 13.7 G/DL 11.5-15.5 HEMATOCRIT (test code = 1004) 39.4 % 34.0-45.0 MCV (test code = 1005) 94.5 fL 80.0-99.0 MCH (test code = 1006) 32.9 PG 25.0-33.0 MCHC (test code = 1007) 34.8 G/DL 31.0-36.0 RDW (test code = 1038) 11.7 % 11.5-15.0 NEUTROPHILS (test code = 1008) 64.0 % LYMPHOCYTES (test code = 1010) 23.9 % MONOCYTES (test code = 1011) 8.4 % EOSINOPHILS (test code = 1012) 2.6 % BASOPHILS (test code = 1013) 0.8 % IMMATURE GRANULOCYTES (test code = 1036) 0.3 % NUCLEATED RBCS (test code = 1065) 0.0 /100 WBC'S See_Comment [Automated messa ge] The system which generated this result transmitted reference range: 0.0. The reference range was not used to interpret this result as normal/abnormal. PLATELET COUNT (test code = 1015) 220 K/UL 130-400 ABSOLUTE NEUTROPHILS (test code = 1066) 4.62 K/UL 1.50-7.50 ABSOLUTE LYMPHOCYTES (test code = 1067) 1.73 K/UL 1.00-4.00 ABSOLUTE MONOCYTES (test code = 1068) 0.61 K/UL 0.20-1.00 ABSOLUTE EOSINOPHILS (test code = 1040) 0.19 K/UL 0.00-0.50 ABSOLUTE BASOPHILS (test code = 1069) 0.06 K/UL 0.00-0.20 ABS IMMATURE GRANULOCYTES (test code = 1020) 0.02 K/UL 0.00-0.10 ABS NUCLEATED RBCS (test code = 69415) 0.00 K/UL 0.00-0.11 TSH, THIRD [id number] 06:48:11* Test Item Value Reference Range Interpretation Comme nts TSH, THIRD GENERATION (test code = 2821) 1.130 UIU/ML 0.400-4.100 UNLESS OTHERWISE INDICATED, ALL TESTING PERFORMED [facility] [address] [place] [address] INSIDE SALES ACCOUNT EXECUTIVE: TERRI MCCRARY M.D. CLIA NUMBER [id number] [place]. [id number] LIPID [id number] 06:12:16* Test Item Value Reference Range Interpretation Comme nts CHOLESTEROL (test code = 2210) 192 MG/DL <200 TRIGLYCERIDES (test code = 2232) 78 MG/DL <150 HDL CHOLESTEROL (test code = 2220) 56 MG/DL >39 CALC LDL CHOL (test code = 2237) 119 MG/DL <100 H NOTE: CALCULATED LDL IS BASED ON ABIGAIL-WHEELER METHOD WHICHINCLUDES ADJUSTABLE TRIGLYCERIDE:VLDL CHOLESTEROL RATIO.THIS FACTOR VARIES BY MEASURED TRIGLYCERIDE AND NON-HDLCHOLESTEROL CONCENTRATIONS WITH INCREASED CALCULATED LDL SEENIN HIGHER TRIGLYCERIDE OR LOWER NON-HDL SPECIMENS. FOR MOREINFORMATION, SEE CLIENT ANNOUNCEMENT AT [email or web address] RISK RATIO LDL/HDL (test code = 2238) 2.13 RATIO <3.22 COMPREHENSIVE METABOLIC [id number] 06:12:16* Test Item Value Reference Range Interpretation Comme nts GLUCOSE (test code = 2216) 89 MG/DL 70-99 BUN (test code = 2207) 12 MG/DL 6-20 CREATININE (test code = 2213) 0.52 MG/DL 0.60-1.30 L eGFR (2020 CKD-EPI) (test code = 16107) 127 ML/MIN/1.73 >60 CALC BUN/CREAT (test code = 2234) 23 RATIO 6-28 SODIUM (test code = 2230) 138 MEQ/L 133-146 POTASSIUM (test code = 2227) 4.0 MEQ/L 3.5-5.4 CHLORIDE (test code = 2214) 103 MEQ/L 95-107 CARBON DIOXIDE (test code = 2205) 22 MEQ/L 19-31 CALCIUM (test code = 2208) 9.6 MG/DL 8.5-10.5 PROTEIN, TOTAL (test code = 2228) 7.0 G/DL 6.1-8.3 ALBUMIN (test code = 2200) 4.6 G/DL 3.5-5.2 CALC GLOBULIN (test code = 2239) 2.4 G/DL 1.9-3.7 CALC A/G RATIO (test code = 2233) 1.9 RATIO 1.0-2.6 BILIRUBIN, TOTAL (test code = 2206) 0.6 MG/DL See_Comment [Automated me ssage] The system which generated this result transmitted reference range: <=1.2. The reference range was not used to interpret this result as normal/abnormal. ALKALINE PHOSPHATASE (test code = 2203) 99 U/L 40-114 AST (test code = 2217) 17 U/L 9-40 ALT (test code = 2218) 12 U/L 5-40 [id number] 00:00:00* Test Item Value Reference Range Interpretation Comme nts TSH, THIRD GENERATION (test code = 2821) 1.130 UIU/ML [id number] 00:00:00* Test Item Value Reference Range Interpretation Comme nts TSH, THIRD GENERATION (test code = 2821) 1.130 UIU/ML [id number] 00:00:00* Test Item Value Reference Range Interpretation Comme nts TSH, THIRD GENERATION (test code = 2821) 1.130 UIU/ML CBC W/AUTO [id number] 00:00:00* Test Item Value Reference Range Interpretation Comme nts WBC (test code = 1001) 7.2 K/UL [...] = 1013) 0.8 % IMMATURE GRANULOCYTES (test code = 1036) 0.3 % NUCLEATED RBCS (test code = 1065) 0.0 /100WBC'S PLATELET COUNT (test code = 1015) 220 K/UL ABSOLUTE NEUTROPHILS (test c ode = 1066) 4.62 K/UL ABSOLUTE LYMPHOCYTES (test c ode = 1067) 1.73 K/UL ABSOLUTE MONOCYTES (test cod e = 1068) 0.61 K/UL ABSOLUTE EOSINOPHILS (test c ode = 1040) 0.19 K/UL ABSOLUTE BASOPHILS (test cod e = 1069) 0.06 K/UL ABS IMMATURE GRANULOCYTES (t est code = 1020) 0.02 K/UL ABS NUCLEATED RBCS (test cod e = 25518) 0.00 K/UL CBC W/AUTO [id number] 00:00:00* Test Item Value Reference Range Interpretation Comme nts WBC (test code = 1001) 7.2 K/UL [...] = 1013) 0.8 % IMMATURE GRANULOCYTES (test code = 1036) 0.3 % NUCLEATED RBCS (test code = 1065) 0.0 /100WBC'S PLATELET COUNT (test code = 1015) 220 K/UL ABSOLUTE NEUTROPHILS (test c ode = 1066) 4.62 K/UL ABSOLUTE LYMPHOCYTES (test c ode = 1067) 1.73 K/UL ABSOLUTE MONOCYTES (test cod e = 1068) 0.61 K/UL ABSOLUTE EOSINOPHILS (test c ode = 1040) 0.19 K/UL ABSOLUTE BASOPHILS (test cod e = 1069) 0.06 K/UL ABS IMMATURE GRANULOCYTES (t est code = 1020) 0.02 K/UL ABS NUCLEATED RBCS (test cod e = 17322) 0.00 K/UL LIPID [id number] 00:00:00* Test Item Value Reference Range Interpretation Comme nts CHOLESTEROL (test code = 2210) 192 MG/DL TRIGLYCERIDES (test code = 2232) 78 MG/DL HDL CHOLESTEROL (test code = 2220) 56 MG/DL CALC LDL CHOL (test code = 2237) 119 MG/DL RISK RATIO LDL/HDL (test cod e = 2238) 2.13 RATIO COMPREHENSIVE METABOLIC [id number] 00:00:00* Test Item Value Reference Range Interpretation Comme nts GLUCOSE (test code = 2217) 89 MG/DL BUN (test code = 2208) 12 MG/DL CREATININE (test code = 2214) 0.52 MG/DL eGFR (2020 CKD-EPI) (test code = 09991) 127 ML/MIN/1.73 CALC BUN/CREAT (test code = 2235) 23 RATIO SODIUM (test code = 2231) 138 MEQ/L POTASSIUM (test code = 2228) 4.0 MEQ/L CHLORIDE (test code = 2215) 103 MEQ/L CARBON DIOXIDE (test code = 2206) 22 MEQ/L CALCIUM (test code = 2209) 9.6 MG/DL PROTEIN, TOTAL (test code = 2229) 7.0 G/DL ALBUMIN (test code = 2201) 4.6 G/DL CALC GLOBULIN (test code = 2240) 2.4 G/DL CALC A/G RATIO (test code = 2234) 1.9 RATIO BILIRUBIN, TOTAL (test code = 2207) 0.6 MG/DL ALKALINE PHOSPHATASE (test code = 2204) 99 U/L AST (test code = 2218) 17 U/L ALT (test code = 2219) 12 U/L [id number] 00:00:00* Test Item Value Reference Range Interpretation Comme nts TSH, THIRD GENERATION (test code = 2821) 1.130 UIU/ML [id number] 00:00:00* Test Item Value Reference Range Interpretation Comme nts TSH, THIRD GENERATION (test code = 2821) 1.130 UIU/ML CBC W/AUTO [id number] 00:00:00* Test Item Value Reference Range Interpretation Comme nts WBC (test code = 1001) 7.2 K/UL [...] = 1013) 0.8 % IMMATURE GRANULOCYTES (test code = 1036) 0.3 % NUCLEATED RBCS (test code = 1065) 0.0 /100WBC'S PLATELET COUNT (test code = 1015) 220 K/UL ABSOLUTE NEUTROPHILS (test c ode = 1066) 4.62 K/UL ABSOLUTE LYMPHOCYTES (test c ode = 1067) 1.73 K/UL ABSOLUTE MONOCYTES (test cod e = 1068) 0.61 K/UL ABSOLUTE EOSINOPHILS (test c ode = 1040) 0.19 K/UL ABSOLUTE BASOPHILS (test cod e = 1069) 0.06 K/UL ABS IMMATURE GRANULOCYTES (t est code = 1020) 0.02 K/UL ABS NUCLEATED RBCS (test cod e = 83199) 0.00 K/UL CBC W/AUTO [id number] 00:00:00* Test Item Value Reference Range Interpretation Comme nts WBC (test code = 1001) 7.2 K/UL [...] = 1013) 0.8 % IMMATURE GRANULOCYTES (test code = 1036) 0.3 % NUCLEATED RBCS (test code = 1065) 0.0 /100WBC'S PLATELET COUNT (test code = 1015) 220 K/UL ABSOLUTE NEUTROPHILS (test c ode = 1066) 4.62 K/UL ABSOLUTE LYMPHOCYTES (test c ode = 1067) 1.73 K/UL ABSOLUTE MONOCYTES (test cod e = 1068) 0.61 K/UL ABSOLUTE EOSINOPHILS (test c ode = 1040) 0.19 K/UL ABSOLUTE BASOPHILS (test cod e = 1069) 0.06 K/UL ABS IMMATURE GRANULOCYTES (t est code = 1020) 0.02 K/UL ABS NUCLEATED RBCS (test cod e = 75244) 0.00 K/UL CBC W/AUTO [id number] 00:00:00* Test Item Value Reference Range Interpretation Comme nts WBC (test code = 1001) 7.2 K/UL [...] = 1013) 0.8 % IMMATURE GRANULOCYTES (test code = 1036) 0.3 % NUCLEATED RBCS (test code = 1065) 0.0 /100WBC'S PLATELET COUNT (test code = 1015) 220 K/UL ABSOLUTE NEUTROPHILS (test c ode = 1066) 4.62 K/UL ABSOLUTE LYMPHOCYTES (test c ode = 1067) 1.73 K/UL ABSOLUTE MONOCYTES (test cod e = 1068) 0.61 K/UL ABSOLUTE EOSINOPHILS (test c ode = 1040) 0.19 K/UL ABSOLUTE BASOPHILS (test cod e = 1069) 0.06 K/UL ABS IMMATURE GRANULOCYTES (t est code = 1020) 0.02 K/UL ABS NUCLEATED RBCS (test cod e = 12318) 0.00 K/UL LIPID [id number] 00:00:00* Test Item Value Reference Range Interpretation Comme nts CHOLESTEROL (test code = 2210) 192 MG/DL TRIGLYCERIDES (test code = 2232) 78 MG/DL HDL CHOLESTEROL (test code = 2220) 56 MG/DL CALC LDL CHOL (test code = 2237) 119 MG/DL RISK RATIO LDL/HDL (test cod e = 2238) 2.13 RATIO LIPID [id number] 00:00:00* Test Item Value Reference Range Interpretation Comme nts CHOLESTEROL (test code = 2210) 192 MG/DL TRIGLYCERIDES (test code = 2232) 78 MG/DL HDL CHOLESTEROL (test code = 2220) 56 MG/DL CALC LDL CHOL (test code = 2237) 119 MG/DL RISK RATIO LDL/HDL (test cod e = 2238) 2.13 RATIO COMPREHENSIVE METABOLIC [id number] 00:00:00* Test Item Value Reference Range Interpretation Comme nts GLUCOSE (test code = 2217) 89 MG/DL BUN (test code = 2208) 12 MG/DL CREATININE (test code = 2214) 0.52 MG/DL eGFR (2020 CKD-EPI) (test code = 34712) 127 ML/MIN/1.73 CALC BUN/CREAT (test code = 2235) 23 RATIO SODIUM (test code = 2231) 138 MEQ/L POTASSIUM (test code = 2228) 4.0 MEQ/L CHLORIDE (test code = 2215) 103 MEQ/L CARBON DIOXIDE (test code = 2206) 22 MEQ/L CALCIUM (test code = 2209) 9.6 MG/DL PROTEIN, TOTAL (test code = 2229) 7.0 G/DL ALBUMIN (test code = 2201) 4.6 G/DL CALC GLOBULIN (test code = 2240) 2.4 G/DL CALC A/G RATIO (test code = 2234) 1.9 RATIO BILIRUBIN, TOTAL (test code = 2207) 0.6 MG/DL ALKALINE PHOSPHATASE (test code = 2204) 99 U/L AST (test code = 2218) 17 U/L ALT (test code = 2219) 12 U/L COMPREHENSIVE METABOLIC [id number] 00:00:00* Test Item Value Reference Range Interpretation Comme nts GLUCOSE (test code = 2217) 89 MG/DL BUN (test code = 2208) 12 MG/DL CREATININE (test code = 2214) 0.52 MG/DL eGFR (2020 CKD-EPI) (test code = 30454) 127 ML/MIN/1.73 CALC BUN/CREAT (test code = 2235) 23 RATIO SODIUM (test code = 2231) 138 MEQ/L POTASSIUM (test code = 2228) 4.0 MEQ/L CHLORIDE (test code = 2215) 103 MEQ/L CARBON DIOXIDE (test code = 2206) 22 MEQ/L CALCIUM (test code = 2209) 9.6 MG/DL PROTEIN, TOTAL (test code = 2229) 7.0 G/DL ALBUMIN (test code = 2201) 4.6 G/DL CALC GLOBULIN (test code = 2240) 2.4 G/DL CALC A/G RATIO (test code = 2234) 1.9 RATIO BILIRUBIN, TOTAL (test code = 2207) 0.6 MG/DL ALKALINE PHOSPHATASE (test code = 2204) 99 U/L AST (test code = 2218) 17 U/L ALT (test code = 2219) 12 U/L [id number] 00:00:00* Test Item Value Reference Range Interpretation Comme nts TSH, THIRD GENERATION (test code = 2821) 1.130 UIU/ML [id number] 00:00:00* Test Item Value Reference Range Interpretation Comme nts TSH, THIRD GENERATION (test code = 2821) 1.130 UIU/ML [id number] 00:00:00* Test Item Value Reference Range Interpretation Comme nts TSH, THIRD GENERATION (test code = 2821) 1.130 UIU/ML CBC W/AUTO [id number] 00:00:00* Test Item Value Reference Range Interpretation Comme nts WBC (test code = 1001) 7.2 K/UL [...] = 1013) 0.8 % IMMATURE GRANULOCYTES (test code = 1036) 0.3 % NUCLEATED RBCS (test code = 1065) 0.0 /100WBC'S PLATELET COUNT (test code = 1015) 220 K/UL ABSOLUTE NEUTROPHILS (test c ode = 1066) 4.62 K/UL ABSOLUTE LYMPHOCYTES (test c ode = 1067) 1.73 K/UL ABSOLUTE MONOCYTES (test cod e = 1068) 0.61 K/UL ABSOLUTE EOSINOPHILS (test c ode = 1040) 0.19 K/UL ABSOLUTE BASOPHILS (test cod e = 1069) 0.06 K/UL ABS IMMATURE GRANULOCYTES (t est code = 1020) 0.02 K/UL ABS NUCLEATED RBCS (test cod e = 97265) 0.00 K/UL CBC W/AUTO [id number] 00:00:00* Test Item Value Reference Range Interpretation Comme nts WBC (test code = 1001) 7.2 K/UL [...] = 1013) 0.8 % IMMATURE GRANULOCYTES (test code = 1036) 0.3 % NUCLEATED RBCS (test code = 1065) 0.0 /100WBC'S PLATELET COUNT (test code = 1015) 220 K/UL ABSOLUTE NEUTROPHILS (test c ode = 1066) 4.62 K/UL ABSOLUTE LYMPHOCYTES (test c ode = 1067) 1.73 K/UL ABSOLUTE MONOCYTES (test cod e = 1068) 0.61 K/UL ABSOLUTE EOSINOPHILS (test c ode = 1040) 0.19 K/UL ABSOLUTE BASOPHILS (test cod e = 1069) 0.06 K/UL ABS IMMATURE GRANULOCYTES (t est code = 1020) 0.02 K/UL ABS NUCLEATED RBCS (test cod e = 44350) 0.00 K/UL CBC W/AUTO [id number] 00:00:00* Test Item Value Reference Range Interpretation Comme nts WBC (test code = 1001) 7.2 K/UL [...] = 1013) 0.8 % IMMATURE GRANULOCYTES (test code = 1036) 0.3 % NUCLEATED RBCS (test code = 1065) 0.0 /100WBC'S PLATELET COUNT (test code = 1015) 220 K/UL ABSOLUTE NEUTROPHILS (test c ode = 1066) 4.62 K/UL ABSOLUTE LYMPHOCYTES (test c ode = 1067) 1.73 K/UL ABSOLUTE MONOCYTES (test cod e = 1068) 0.61 K/UL ABSOLUTE EOSINOPHILS (test c ode = 1040) 0.19 K/UL ABSOLUTE BASOPHILS (test cod e = 1069) 0.06 K/UL ABS IMMATURE GRANULOCYTES (t est code = 1020) 0.02 K/UL ABS NUCLEATED RBCS (test cod e = 66995) 0.00 K/UL LIPID [id number] 00:00:00* Test Item Value Reference Range Interpretation Comme nts CHOLESTEROL (test code = 2210) 192 MG/DL TRIGLYCERIDES (test code = 2232) 78 MG/DL HDL CHOLESTEROL (test code = 2220) 56 MG/DL CALC LDL CHOL (test code = 2237) 119 MG/DL RISK RATIO LDL/HDL (test cod e = 2238) 2.13 RATIO LIPID [id number] 00:00:00* Test Item Value Reference Range Interpretation Comme nts CHOLESTEROL (test code = 2210) 192 MG/DL TRIGLYCERIDES (test code = 2232) 78 MG/DL HDL CHOLESTEROL (test code = 2220) 56 MG/DL CALC LDL CHOL (test code = 2237) 119 MG/DL RISK RATIO LDL/HDL (test cod e = 2238) 2.13 RATIO COMPREHENSIVE METABOLIC [id number] 00:00:00* Test Item Value Reference Range Interpretation Comme nts GLUCOSE (test code = 2217) 89 MG/DL BUN (test code = 2208) 12 MG/DL CREATININE (test code = 2214) 0.52 MG/DL eGFR (2020 CKD-EPI) (test code = 39113) 127 ML/MIN/1.73 CALC BUN/CREAT (test code = 2235) 23 RATIO SODIUM (test code = 2231) 138 MEQ/L POTASSIUM (test code = 2228) 4.0 MEQ/L CHLORIDE (test code = 2215) 103 MEQ/L CARBON DIOXIDE (test code = 2206) 22 MEQ/L CALCIUM (test code = 2209) 9.6 MG/DL PROTEIN, TOTAL (test code = 2229) 7.0 G/DL ALBUMIN (test code = 2201) 4.6 G/DL CALC GLOBULIN (test code = 2240) 2.4 G/DL CALC A/G RATIO (test code = 2234) 1.9 RATIO BILIRUBIN, TOTAL (test code = 2207) 0.6 MG/DL ALKALINE PHOSPHATASE (test code = 2204) 99 U/L AST (test code = 2218) 17 U/L ALT (test code = 2219) 12 U/L COMPREHENSIVE METABOLIC [id number] 00:00:00* Test Item Value Reference Range Interpretation Comme nts GLUCOSE (test code = 2217) 89 MG/DL BUN (test code = 2208) 12 MG/DL CREATININE (test code = 2214) 0.52 MG/DL eGFR (2020 CKD-EPI) (test code = 21289) 127 ML/MIN/1.73 CALC BUN/CREAT (test code = 2235) 23 RATIO SODIUM (test code = 2231) 138 MEQ/L POTASSIUM (test code = 2228) 4.0 MEQ/L CHLORIDE (test code = 2215) 103 MEQ/L CARBON DIOXIDE (test code = 2206) 22 MEQ/L CALCIUM (test code = 2209) 9.6 MG/DL PROTEIN, TOTAL (test code = 2229) 7.0 G/DL ALBUMIN (test code = 2201) 4.6 G/DL CALC GLOBULIN (test code = 2240) 2.4 G/DL CALC A/G RATIO (test code = 2234) 1.9 RATIO BILIRUBIN, TOTAL (test code = 2207) 0.6 MG/DL ALKALINE PHOSPHATASE (test code = 2204) 99 U/L AST (test code = 2218) 17 U/L ALT (test code = 2219) 12 U/L SARS-CoV-2 (COVID-19) by RT-PCR (HIGH RISK)2021-02-01 00:00:00* Test Item Value Reference Range Interpretation Comme nts SARS-CoV-2 INTERPRETATION (t est code = 47495) NEGATIVE SOURCE (test code = 19597) NOT SPECIFIED SARS-CoV-2 (COVID-19) by RT-PCR (HIGH RISK)2021-02-01 00:00:00* Test Item Value Reference Range Interpretation Comme nts SARS-CoV-2 INTERPRETATION (t est code = 22149) NEGATIVE SOURCE (test code = 85790) NOT SPECIFIED SARS-CoV-2 (COVID-19) by RT-PCR (HIGH RISK)2021-02-01 00:00:00* Test Item Value Reference Range Interpretation Comme nts SARS-CoV-2 INTERPRETATION (t est code = 59271) NEGATIVE SOURCE (test code = 52456) NOT SPECIFIED SARS-CoV-2 (COVID-19) by RT-PCR (HIGH RISK)2021-02-01 00:00:00* Test Item Value Reference Range Interpretation Comme nts SARS-CoV-2 INTERPRETATION (t est code = 12372) NEGATIVE SOURCE (test code = 56626) NOT SPECIFIED SARS-CoV-2 (COVID-19) by RT-PCR (HIGH RISK)2021-02-01 00:00:00* Test Item Value Reference Range Interpretation Comme nts SARS-CoV-2 INTERPRETATION (t est code = 57595) NEGATIVE SOURCE (test code = 47612) NOT SPECIFIED TRICHOMONAS, URINE, [id number] 00:00:00* Test Item Value Reference Range Interpretation Comme nts TRICHOMONAS, NAAT (test code = 17938) NEGATIVE TRICHOMONAS, URINE, [id number] 00:00:00* Test Item Value Reference Range Interpretation Comme nts TRICHOMONAS, NAAT (test code = 88404) NEGATIVE CBC W/AUTO [id number] 00:00:00* Test Item Value Reference Range Interpretation Comme nts WBC (test code = 1001) 10.3 K/UL [...] code = 1015) 280 K/UL CBC W/AUTO [id number] 00:00:00* Test Item Value Reference Range Interpretation Comme nts WBC (test code = 1001) 10.3 K/UL [...] code = 1015) 280 K/UL COMPREHENSIVE METABOLIC [id number] 00:00:00* Test Item Value Reference Range Interpretation Comme nts GLUCOSE (test code = 2217) 112 MG/DL BUN (test code = 2208) 14 MG/DL CREATININE (test code = 2214) 0.90 MG/DL eGFR AMER. (test cod e = 68814) 99 ML/MIN/1.73 eGFR NON- AMER. (test code = 00012) 85 ML/MIN/1.73 CALC BUN/CREAT (test code = 2235) 16 RATIO SODIUM (test code = 2231) 142 MEQ/L POTASSIUM (test code = 2228) 4.3 MEQ/L CHLORIDE (test code = 2215) 103 MEQ/L CARBON DIOXIDE (test code = 2206) 22 MEQ/L CALCIUM (test code = 2209) 9.9 MG/DL PROTEIN, TOTAL (test code = 2229) 7.5 G/DL ALBUMIN (test code = 2201) 5.0 G/DL CALC GLOBULIN (test code = 2240) 2.5 G/DL CALC A/G RATIO (test code = 2234) 2.0 RATIO BILIRUBIN, TOTAL (test code = 2207) 0.3 MG/DL ALKALINE PHOSPHATASE (test code = 2204) 105 U/L AST (test code = 2218) 20 U/L ALT (test code = 2219) 22 U/L [id number] 00:00:00* Test Item Value Reference Range Interpretation Comme nts TSH, THIRD GENERATION (test code = 2821) 1.640 UIU/ML [id number] 00:00:00* Test Item Value Reference Range Interpretation Comme nts TSH, THIRD GENERATION (test code = 2821) 1.640 UIU/ML TRICHOMONAS, URINE, [id number] 00:00:00* Test Item Value Reference Range Interpretation Comme nts TRICHOMONAS, NAAT (test code = 82738) NEGATIVE CBC W/AUTO [id number] 00:00:00* Test Item Value Reference Range Interpretation Comme nts WBC (test code = 1001) 10.3 K/UL [...] code = 1015) 280 K/UL CBC W/AUTO [id number] 00:00:00* Test Item Value Reference Range Interpretation Comme nts WBC (test code = 1001) 10.3 K/UL [...] code = 1015) 280 K/UL CBC W/AUTO [id number] 00:00:00* Test Item Value Reference Range Interpretation Comme nts WBC (test code = 1001) 10.3 K/UL [...] code = 1015) 280 K/UL COMPREHENSIVE METABOLIC [id number] 00:00:00* Test Item Value Reference Range Interpretation Comme nts GLUCOSE (test code = 2217) 112 MG/DL BUN (test code = 2208) 14 MG/DL CREATININE (test code = 2214) 0.90 MG/DL eGFR AMER. (test cod e = 71324) 99 ML/MIN/1.73 eGFR NON- AMER. (test code = 69742) 85 ML/MIN/1.73 CALC BUN/CREAT (test code = 2235) 16 RATIO SODIUM (test code = 2231) 142 MEQ/L POTASSIUM (test code = 2228) 4.3 MEQ/L CHLORIDE (test code = 2215) 103 MEQ/L CARBON DIOXIDE (test code = 2206) 22 MEQ/L CALCIUM (test code = 2209) 9.9 MG/DL PROTEIN, TOTAL (test code = 2229) 7.5 G/DL ALBUMIN (test code = 2201) 5.0 G/DL CALC GLOBULIN (test code = 2240) 2.5 G/DL CALC A/G RATIO (test code = 2234) 2.0 RATIO BILIRUBIN, TOTAL (test code = 2207) 0.3 MG/DL ALKALINE PHOSPHATASE (test code = 2204) 105 U/L AST (test code = 2218) 20 U/L ALT (test code = 2219) 22 U/L COMPREHENSIVE METABOLIC [id number] 00:00:00* Test Item Value Reference Range Interpretation Comme nts GLUCOSE (test code = 2217) 112 MG/DL BUN (test code = 2208) 14 MG/DL CREATININE (test code = 2214) 0.90 MG/DL eGFR AMER. (test cod e = 92749) 99 ML/MIN/1.73 eGFR NON- AMER. (test code = 56679) 85 ML/MIN/1.73 CALC BUN/CREAT (test code = 2235) 16 RATIO SODIUM (test code = 2231) 142 MEQ/L POTASSIUM (test code = 2228) 4.3 MEQ/L CHLORIDE (test code = 2215) 103 MEQ/L CARBON DIOXIDE (test code = 2206) 22 MEQ/L CALCIUM (test code = 2209) 9.9 MG/DL PROTEIN, TOTAL (test code = 222) 7.5 G/DL ALBUMIN (test code = 2201) 5.0 G/DL CALC GLOBULIN (test code = 2240) 2.5 G/DL CALC A/G RATIO (test code = 2234) 2.0 RATIO BILIRUBIN, TOTAL (test code = 2207) 0.3 MG/DL ALKALINE PHOSPHATASE (test code = 2204) 105 U/L AST (test code = 2218) 20 U/L ALT (test code = 2219) 22 U/L [id number] 00:00:00* Test Item Value Reference Range Interpretation Comme nts TSH, THIRD GENERATION (test code = 2821) 1.640 UIU/ML [id number] 00:00:00* Test Item Value Reference Range Interpretation Comme nts TSH, THIRD GENERATION (test code = 2821) 1.640 UIU/ML [id number] 00:00:00* Test Item Value Reference Range Interpretation Comme nts TSH, THIRD GENERATION (test code = 2821) 1.640 UIU/ML TRICHOMONAS, URINE, [id number] 00:00:00* Test Item Value Reference Range Interpretation Comme nts TRICHOMONAS, NAAT (test code = 45415) NEGATIVE TRICHOMONAS, URINE, [id number] 00:00:00* Test Item Value Reference Range Interpretation Comme nts TRICHOMONAS, NAAT (test code = 46324) NEGATIVE CBC W/AUTO [id number] 00:00:00* Test Item Value Reference Range Interpretation Comme nts WBC (test code = 1001) 10.3 K/UL [...] code = 1015) 280 K/UL CBC W/AUTO [id number] 00:00:00* Test Item Value Reference Range Interpretation Comme nts WBC (test code = 1001) 10.3 K/UL [...] code = 1015) 280 K/UL CBC W/AUTO [id number] 00:00:00* Test Item Value Reference Range Interpretation Comme nts WBC (test code = 1001) 10.3 K/UL [...] code = 1015) 280 K/UL COMPREHENSIVE METABOLIC [id number] 00:00:00* Test Item Value Reference Range Interpretation Comme nts GLUCOSE (test code = 2217) 112 MG/DL BUN (test code = 2208) 14 MG/DL CREATININE (test code = 2214) 0.90 MG/DL eGFR AMER. (test cod e = 61877) 99 ML/MIN/1.73 eGFR NON- AMER. (test code = 32297) 85 ML/MIN/1.73 CALC BUN/CREAT (test code = 2235) 16 RATIO SODIUM (test code = 2231) 142 MEQ/L POTASSIUM (test code = 2228) 4.3 MEQ/L CHLORIDE (test code = 2215) 103 MEQ/L CARBON DIOXIDE (test code = 2206) 22 MEQ/L CALCIUM (test code = 2209) 9.9 MG/DL PROTEIN, TOTAL (test code = 2229) 7.5 G/DL ALBUMIN (test code = 2201) 5.0 G/DL CALC GLOBULIN (test code = 2240) 2.5 G/DL CALC A/G RATIO (test code = 2234) 2.0 RATIO BILIRUBIN, TOTAL (test code = 2207) 0.3 MG/DL ALKALINE PHOSPHATASE (test code = 2204) 105 U/L AST (test code = 2218) 20 U/L ALT (test code = 2219) 22 U/L COMPREHENSIVE METABOLIC [id number] 00:00:00* Test Item Value Reference Range Interpretation Comme nts GLUCOSE (test code = 2217) 112 MG/DL BUN (test code = 2208) 14 MG/DL CREATININE (test code = 2214) 0.90 MG/DL eGFR AMER. (test cod e = 06341) 99 ML/MIN/1.73 eGFR NON- AMER. (test code = 02623) 85 ML/MIN/1.73 CALC BUN/CREAT (test code = 2235) 16 RATIO SODIUM (test code = 2231) 142 MEQ/L POTASSIUM (test code = 2228) 4.3 MEQ/L CHLORIDE (test code = 2215) 103 MEQ/L CARBON DIOXIDE (test code = 220) 22 MEQ/L CALCIUM (test code = 2209) 9.9 MG/DL PROTEIN, TOTAL (test code = 222) 7.5 G/DL ALBUMIN (test code = 2201) 5.0 G/DL CALC GLOBULIN (test code = 2240) 2.5 G/DL CALC A/G RATIO (test code = 2234) 2.0 RATIO BILIRUBIN, TOTAL (test code = 2206) 0.3 MG/DL ALKALINE PHOSPHATASE (test code = 2203) 105 U/L AST (test code = 2217) 20 U/L ALT (test code = 2218) 22 U/L [id number] 00:00:00* Test Item Value Reference Range Interpretation Comme nts TSH, THIRD GENERATION (test code = 2821) 1.640 UIU/ML [id number] 00:00:00* Test Item Value Reference Range Interpretation Comme nts TSH, THIRD GENERATION (test code = 2821) 1.640 UIU/ML [id number] 00:00:00* Test Item Value Reference Range Interpretation Comme nts TSH, THIRD GENERATION (test code = 2821) 1.640 UIU/ML HCG, QUANTITATIVE [ADDED]2020-06-23 00:00:00* Test Item Value Reference Range Interpretation Comme nts HCG, QUANTITATIVE (test code = 2506) <5 MIU/ML HCG, QUANTITATIVE [ADDED]2020-06-23 00:00:00* Test Item Value Reference Range Interpretation Comme nts HCG, QUANTITATIVE (test code = 2506) <5 MIU/ML NOTE: [ADDED]2020-06-23 00:00:00* Test Item Value Reference Range Interpretation Comme nts NOTE: (test code = 998) (NOTE) HCG, QUANTITATIVE [ADDED]2020-06-23 00:00:00* Test Item Value Reference Range Interpretation Comme nts HCG, QUANTITATIVE (test code = 2506) <5 MIU/ML HCG, QUANTITATIVE [ADDED]2020-06-23 00:00:00* Test Item Value Reference Range Interpretation Comme nts HCG, QUANTITATIVE (test code = 2506) <5 MIU/ML HCG, QUANTITATIVE [ADDED]2020-06-23 00:00:00* Test Item Value Reference Range Interpretation Comme nts HCG, QUANTITATIVE (test code = 2506) <5 MIU/ML NOTE: [ADDED]2020-06-23 00:00:00* Test Item Value Reference Range Interpretation Comme nts NOTE: (test code = 998) (NOTE) HCG, QUANTITATIVE [ADDED]2020-06-23 00:00:00* Test Item Value Reference Range Interpretation Comme nts HCG, QUANTITATIVE (test code = 2506) <5 MIU/ML HCG, QUANTITATIVE [ADDED]2020-06-23 00:00:00* Test Item Value Reference Range Interpretation Comme nts HCG, QUANTITATIVE (test code = 2506) <5 MIU/ML HCG, QUANTITATIVE [ADDED]2020-06-23 00:00:00* Test Item Value Reference Range Interpretation Comme nts HCG, QUANTITATIVE (test code = 2506) <5 MIU/ML NOTE: [ADDED]2020-06-23 00:00:00* Test Item Value Reference Range Interpretation Comme nts NOTE: (test code = 998) (NOTE) CULTURE, [id number] 00:00:00* Test Item Value Reference Range Interpretation Comme nts CULTURE, URINE (test code = 55082) SPECIMEN NUMBER: [id number] CULTURE, [id number] 00:00:00* Test Item Value Reference Range Interpretation Comme nts CULTURE, URINE (test code = 36352) SPECIMEN NUMBER: [id number] CULTURE, [id number] 00:00:00* Test Item Value Reference Range Interpretation Comme nts CULTURE, URINE (test code = 55244) SPECIMEN NUMBER: [id number] CULTURE, [id number] 00:00:00* Test Item Value Reference Range Interpretation Comme nts CULTURE, URINE (test code = 21647) SPECIMEN NUMBER: [id number] CULTURE, [id number] 00:00:00* Test Item Value Reference Range Interpretation Comme nts CULTURE, URINE (test code = 44634) SPECIMEN NUMBER: [id number] RPR REFLEX TO [id number] 00:00:00* Test Item Value Reference Range Interpretation Comme nts RPR (test code = 49881) NON-REACTIVE RPR TITER (test code = 3500) NOT INDIC. TITER HEPATITIS PROFILE (A,B,C)2020-06-21 00:00:00* Test Item Value Reference Range Interpretation Comme nts HEPATITIS A TOTAL AB (test c ode = 2725) REACTIVE HEPATITIS B SURF AG (test co de = 2739) NON-REACTIVE HEP B CORE TOTAL AB (test co de = 2729) NON-REACTIVE HEPATITIS B SURFACE AB (test code = 2737) REACTIVE HEPATITIS C ANTIBODY (test c ode = 4675) NON-REACTIVE INTERPRETATION HEPATITIS A: (test code = 2552) (NOTE) INTERPRETATION HEPATITIS B: (test code = 59974) (NOTE) INTERPRETATION HEPATITIS C: (test code = 00863) (NOTE) HEPATITIS PROFILE (A,B,C)2020-06-21 00:00:00* Test Item Value Reference Range Interpretation Comme nts HEPATITIS A TOTAL AB (test c ode = 2725) REACTIVE HEPATITIS B SURF AG (test co de = 2739) NON-REACTIVE HEP B CORE TOTAL AB (test co de = 2729) NON-REACTIVE HEPATITIS B SURFACE AB (test code = 2737) REACTIVE HEPATITIS C ANTIBODY (test c ode = 4675) NON-REACTIVE INTERPRETATION HEPATITIS A: (test code = 2552) (NOTE) INTERPRETATION HEPATITIS B: (test code = 37343) (NOTE) INTERPRETATION HEPATITIS C: (test code = 09551) (NOTE) HEPATITIS A IgM [REFLEX]2020-06-21 00:00:00* Test Item Value Reference Range Interpretation Comme nts HEPATITIS A IgM (test code = 2728) NON-REACTIVE GC AND CHLAMYDIA, AMPLIFIED, [id number] 00:00:00* Test Item Value Reference Range Interpretation Comme nts GONORRHEA, NAAT (test code = 07666) NEGATIVE CHLAMYDIA, NAAT (test code = 19033) NEGATIVE HIV AB/AG COMBO RFLX [id number] 00:00:00* Test Item Value Reference Range Interpretation Comme nts HIV 1/2 4TH GEN, RFLX CONF ( test code = 3514) NON-REACTIVE RPR REFLEX TO [id number] 00:00:00* Test Item Value Reference Range Interpretation Comme nts RPR (test code = 71998) NON-REACTIVE RPR TITER (test code = 3500) NOT INDIC. TITER HEPATITIS PROFILE (A,B,C)2020-06-21 00:00:00* Test Item Value Reference Range Interpretation Comme nts HEPATITIS A TOTAL AB (test c ode = 2725) REACTIVE HEPATITIS B SURF AG (test co de = 2739) NON-REACTIVE HEP B CORE TOTAL AB (test co de = 2729) NON-REACTIVE HEPATITIS B SURFACE AB (test code = 2737) REACTIVE HEPATITIS C ANTIBODY (test c ode = 4675) NON-REACTIVE INTERPRETATION HEPATITIS A: (test code = 2552) (NOTE) INTERPRETATION HEPATITIS B: (test code = 35006) (NOTE) INTERPRETATION HEPATITIS C: (test code = 57168) (NOTE) HEPATITIS A IgM [REFLEX]2020-06-21 00:00:00* Test Item Value Reference Range Interpretation Comme nts HEPATITIS A IgM (test code = 2728) NON-REACTIVE GC AND CHLAMYDIA, AMPLIFIED, [id number] 00:00:00* Test Item Value Reference Range Interpretation Comme nts GONORRHEA, NAAT (test code = 54927) NEGATIVE CHLAMYDIA, NAAT (test code = 69106) NEGATIVE GC AND CHLAMYDIA, AMPLIFIED, [id number] 00:00:00* Test Item Value Reference Range Interpretation Comme nts GONORRHEA, NAAT (test code = 91380) NEGATIVE CHLAMYDIA, NAAT (test code = 79823) NEGATIVE HIV AB/AG COMBO RFLX [id number] 00:00:00* Test Item Value Reference Range Interpretation Comme nts HIV 1/2 4TH GEN, RFLX CONF ( test code = 3514) NON-REACTIVE HIV AB/AG COMBO RFLX [id number] 00:00:00* Test Item Value Reference Range Interpretation Comme nts HIV 1/2 4TH GEN, RFLX CONF ( test code = 3514) NON-REACTIVE RPR REFLEX TO [id number] 00:00:00* Test Item Value Reference Range Interpretation Comme nts RPR (test code = 40147) NON-REACTIVE RPR TITER (test code = 3500) NOT INDIC. TITER RPR REFLEX TO [id number] 00:00:00* Test Item Value Reference Range Interpretation Comme nts RPR (test code = 09747) NON-REACTIVE RPR TITER (test code = 3500) NOT INDIC. TITER HEPATITIS PROFILE (A,B,C)2020-06-21 00:00:00* Test Item Value Reference Range Interpretation Comme nts HEPATITIS A TOTAL AB (test c ode = 2725) REACTIVE HEPATITIS B SURF AG (test co de = 2739) NON-REACTIVE HEP B CORE TOTAL AB (test co de = 2729) NON-REACTIVE HEPATITIS B SURFACE AB (test code = 2737) REACTIVE HEPATITIS C ANTIBODY (test c ode = 4675) NON-REACTIVE INTERPRETATION HEPATITIS A: (test code = 2552) (NOTE) INTERPRETATION HEPATITIS B: (test code = 06523) (NOTE) INTERPRETATION HEPATITIS C: (test code = 58948) (NOTE) HEPATITIS PROFILE (A,B,C)2020-06-21 00:00:00* Test Item Value Reference Range Interpretation Comme nts HEPATITIS A TOTAL AB (test c ode = 2725) REACTIVE HEPATITIS B SURF AG (test co de = 2739) NON-REACTIVE HEP B CORE TOTAL AB (test co de = 2729) NON-REACTIVE HEPATITIS B SURFACE AB (test code = 2737) REACTIVE HEPATITIS C ANTIBODY (test c ode = 4675) NON-REACTIVE INTERPRETATION HEPATITIS A: (test code = 2552) (NOTE) INTERPRETATION HEPATITIS B: (test code = 71472) (NOTE) INTERPRETATION HEPATITIS C: (test code = 89971) (NOTE) HEPATITIS A IgM [REFLEX]2020-06-21 00:00:00* Test Item Value Reference Range Interpretation Comme nts HEPATITIS A IgM (test code = 2728) NON-REACTIVE GC AND CHLAMYDIA, AMPLIFIED, [id number] 00:00:00* Test Item Value Reference Range Interpretation Comme nts GONORRHEA, NAAT (test code = 36593) NEGATIVE CHLAMYDIA, NAAT (test code = 17045) NEGATIVE GC AND CHLAMYDIA, AMPLIFIED, [id number] 00:00:00* Test Item Value Reference Range Interpretation Comme nts GONORRHEA, NAAT (test code = 86562) NEGATIVE CHLAMYDIA, NAAT (test code = 62215) NEGATIVE HIV AB/AG COMBO RFLX [id number] 00:00:00* Test Item Value Reference Range Interpretation Comme nts HIV 1/2 4TH GEN, RFLX CONF ( test code = 3514) NON-REACTIVE HIV AB/AG COMBO RFLX [id number] 00:00:00* Test Item Value Reference Range Interpretation Comme nts HIV 1/2 4TH GEN, RFLX CONF ( test code = 3514) NON-REACTIVE RPR REFLEX TO [id number] 00:00:00* Test Item Value Reference Range Interpretation Comme nts RPR (test code = 13034) NON-REACTIVE RPR TITER (test code = 3500) NOT INDIC. TITER HIV AB/AG COMBO RFLX [id number] 00:00:00* Test Item Value Reference Range Interpretation Comme nts HIV 1/2 4TH GEN, RFLX CONF ( test code = 3514) NON-REACTIVE [id number] 00:00:00* Test Item Value Reference Range Interpretation Comme nts RPR RESULT (test code = 3501) NON-REACTIVE RPR TITER (test code = 3500) NOT INDIC. TITER [id number] 00:00:00* Test Item Value Reference Range Interpretation Comme nts RPR RESULT (test code = 3501) NON-REACTIVE RPR TITER (test code = 3500) NOT INDIC. TITER [id number] 00:00:00* Test Item Value Reference Range Interpretation Comme nts RPR RESULT (test code = 3501) NON-REACTIVE RPR TITER (test code = 3500) NOT INDIC. TITER GC AND CHLAMYDIA, AMPLIFIED, [id number] 00:00:00* Test Item Value Reference Range Interpretation Comme nts GONORRHEA, NAAT (test code = 99657) NEGATIVE CHLAMYDIA, NAAT (test code = 49596) NEGATIVE GC AND CHLAMYDIA, AMPLIFIED, [id number] 00:00:00* Test Item Value Reference Range Interpretation Comme nts GONORRHEA, NAAT (test code = 67212) NEGATIVE CHLAMYDIA, NAAT (test code = 37006) NEGATIVE VAGINAL PATHOGENS DNA [id number] 00:00:00* Test Item Value Reference Range Interpretation Comme nts DWIGHT SPECIES (test code = 51469) NEGATIVE G. VAGINALIS (test code = 63738) POSITIVE T. VAGINALIS (test code = 97714) NEGATIVE HIV AB/AG COMBO RFLX [id number] 00:00:00* Test Item Value Reference Range Interpretation Comme nts HIV 1/2 4TH GEN, RFLX CONF ( test code = 3514) NON-REACTIVE [id number] 00:00:00* Test Item Value Reference Range Interpretation Comme nts RPR RESULT (test code = 3501) NON-REACTIVE RPR TITER (test code = 3500) NOT INDIC. TITER [id number] 00:00:00* Test Item Value Reference Range Interpretation Comme nts RPR RESULT (test code = 3501) NON-REACTIVE RPR TITER (test code = 3500) NOT INDIC. TITER GC AND CHLAMYDIA, AMPLIFIED, [id number] 00:00:00* Test Item Value Reference Range Interpretation Comme nts GONORRHEA, NAAT (test code = 78839) NEGATIVE CHLAMYDIA, NAAT (test code = 26655) NEGATIVE VAGINAL PATHOGENS DNA [id number] 00:00:00* Test Item Value Reference Range Interpretation Comme nts DWIGHT SPECIES (test code = 18433) NEGATIVE G. VAGINALIS (test code = 88764) POSITIVE T. VAGINALIS (test code = 97706) NEGATIVE VAGINAL PATHOGENS DNA [id number] 00:00:00* Test Item Value Reference Range Interpretation Comme nts DWIGHT SPECIES (test code = 79361) NEGATIVE G. VAGINALIS (test code = 98079) POSITIVE T. VAGINALIS (test code = 80089) NEGATIVE HIV AB/AG COMBO RFLX [id number] 00:00:00* Test Item Value Reference Range Interpretation Comme nts HIV 1/2 4TH GEN, RFLX CONF ( test code = 3514) NON-REACTIVE HIV AB/AG COMBO RFLX [id number] 00:00:00* Test Item Value Reference Range Interpretation Comme nts HIV 1/2 4TH GEN, RFLX CONF ( test code = 3514) NON-REACTIVE [id number] 00:00:00* Test Item Value Reference Range Interpretation Comme nts RPR RESULT (test code = 3501) NON-REACTIVE RPR TITER (test code = 3500) NOT INDIC. TITER [id number] 00:00:00* Test Item Value Reference Range Interpretation Comme nts RPR RESULT (test code = 3501) NON-REACTIVE RPR TITER (test code = 3500) NOT INDIC. TITER [id number] 00:00:00* Test Item Value Reference Range Interpretation Comme nts RPR RESULT (test code = 3501) NON-REACTIVE RPR TITER (test code = 3500) NOT INDIC. TITER GC AND CHLAMYDIA, AMPLIFIED, [id number] 00:00:00* Test Item Value Reference Range Interpretation Comme nts GONORRHEA, NAAT (test code = 71651) NEGATIVE CHLAMYDIA, NAAT (test code = 10294) NEGATIVE GC AND CHLAMYDIA, AMPLIFIED, [id number] 00:00:00* Test Item Value Reference Range Interpretation Comme nts GONORRHEA, NAAT (test code = 85623) NEGATIVE CHLAMYDIA, NAAT (test code = 59186) NEGATIVE VAGINAL PATHOGENS DNA [id number] 00:00:00* Test Item Value Reference Range Interpretation Comme nts DWIGHT SPECIES (test code = 31232) NEGATIVE G. VAGINALIS (test code = 26558) POSITIVE T. VAGINALIS (test code = 07959) NEGATIVE VAGINAL PATHOGENS DNA [id number] 00:00:00* Test Item Value Reference Range Interpretation Comme nts DWIGHT SPECIES (test code = 41701) NEGATIVE G. VAGINALIS (test code = 15595) POSITIVE T. VAGINALIS (test code = 26944) NEGATIVE HIV AB/AG COMBO RFLX [id number] 00:00:00* Test Item Value Reference Range Interpretation Comme nts HIV 1/2 4TH GEN, RFLX CONF ( test code = 3514) NON-REACTIVE GC AND CHLAMYDIA, AMPLIFIED, [id number] 00:00:00* Test Item Value Reference Range Interpretation Comme nts GONORRHEA, TMA (test code = 89953) NEGATIVE CHLAMYDIA, TMA (test code = 97809) NEGATIVE GC AND CHLAMYDIA, AMPLIFIED, [id number] 00:00:00* Test Item Value Reference Range Interpretation Comme nts GONORRHEA, TMA (test code = 76198) NEGATIVE CHLAMYDIA, TMA (test code = 45504) NEGATIVE GC AND CHLAMYDIA, AMPLIFIED, [id number] 00:00:00* Test Item Value Reference Range Interpretation Comme nts GONORRHEA, TMA (test code = 95813) NEGATIVE CHLAMYDIA, TMA (test code = 55367) NEGATIVE GC AND CHLAMYDIA, AMPLIFIED, [id number] 00:00:00* Test Item Value Reference Range Interpretation Comme nts GONORRHEA, TMA (test code = 13868) NEGATIVE CHLAMYDIA, TMA (test code = 67048) NEGATIVE GC AND CHLAMYDIA, AMPLIFIED, [id number] 00:00:00* Test Item Value Reference Range Interpretation Comme nts GONORRHEA, TMA (test code = 89325) NEGATIVE CHLAMYDIA, TMA (test code = 54966) NEGATIVE GC AND CHLAMYDIA AMPLIFIED, [id number] 00:00:00* Test Item Value Reference Range Interpretation Comme nts GONORRHEA, TMA (test code = 08453) TEST NOT PERFORMED CHLAMYDIA, TMA (test code = 39782) TEST NOT PERFORMED PAP TEST, THINPREP, [id number] 00:00:00* Test Item Value Reference Range Interpretation Comme nts SOURCE: (test code = 8001) Cervical/Endocervical SLIDES: (test code = 8011) 1 LMP: (test code = 8021) 08/19/2018 SPECIMEN ADEQUACY: (test code = 79922) (NOTE) INTERPRETATION: (test code = 16988) NILM/NO EPITH. ABNORMALITY;SEE BELOW GEAR SHAPER SET UP OPERATOR: (test code = 8101) RUSSELL PARCHER,CT(ASCP)IAC LOCATION: (test code = 69890) (NOTE) CPT: (test code = 8140) (NOTE) PAP TEST, THINPREP, [id number] 00:00:00* Test Item Value Reference Range Interpretation Comme nts SOURCE: (test code = 8001) Cervical/Endocervical SLIDES: (test code = 8011) 1 LMP: (test code = 8021) 08/19/2018 SPECIMEN ADEQUACY: (test code = 34097) (NOTE) INTERPRETATION: (test code = 15781) NILM/NO EPITH. ABNORMALITY;SEE BELOW GEAR SHAPER SET UP OPERATOR: (test code = 8101) RUSSELL PARCHER,CT(ASCP)IAC LOCATION: (test code = 45970) (NOTE) CPT: (test code = 8140) (NOTE) GC AND CHLAMYDIA AMPLIFIED, [id number] 00:00:00* Test Item Value Reference Range Interpretation Comme nts GONORRHEA, TMA (test code = 83957) TEST NOT PERFORMED CHLAMYDIA, TMA (test code = 21263) TEST NOT PERFORMED GC AND CHLAMYDIA AMPLIFIED, [id number] 00:00:00* Test Item Value Reference Range Interpretation Comme nts GONORRHEA, TMA (test code = 97280) TEST NOT PERFORMED CHLAMYDIA, TMA (test code = 42288) TEST NOT PERFORMED PAP TEST, THINPREP, [id number] 00:00:00* Test Item Value Reference Range Interpretation Comme nts SOURCE: (test code = 8001) Cervical/Endocervical SLIDES: (test code = 8011) 1 LMP: (test code = 8021) 08/19/2018 SPECIMEN ADEQUACY: (test code = 01890) (NOTE) INTERPRETATION: (test code = 86844) NILM/NO EPITH. ABNORMALITY;SEE BELOW GEAR SHAPER SET UP OPERATOR: (test code = 8101) HAYLIE MATIAS(ASCP)IAC LOCATION: (test code = 56041) (NOTE) CPT: (test code = 8140) (NOTE) GC AND CHLAMYDIA AMPLIFIED, [id number] 00:00:00* Test Item Value Reference Range Interpretation Comme nts GONORRHEA, TMA (test code = 52340) TEST NOT PERFORMED CHLAMYDIA, TMA (test code = 73521) TEST NOT PERFORMED PAP TEST, THINPREP, [id number] 00:00:00* Test Item Value Reference Range Interpretation Comme nts SOURCE: (test code = 8001) Cervical/Endocervical SLIDES: (test code = 8011) 1 LMP: (test code = 8021) 08/19/2018 SPECIMEN ADEQUACY: (test code = 21874) (NOTE) INTERPRETATION: (test code = 07043) NILM/NO EPITH. ABNORMALITY;SEE BELOW GEAR SHAPER SET UP OPERATOR: (test code = 8101) HAYLIE MATIAS(ASCP)IAC LOCATION: (test code = 40289) (NOTE) CPT: (test code = 8140) (NOTE) PAP TEST, THINPREP, [id number] 00:00:00* Test Item Value Reference Range Interpretation Comme nts SOURCE: (test code = 8001) Cervical/Endocervical SLIDES: (test code = 8011) 1 LMP: (test code = 8021) 08/19/2018 SPECIMEN ADEQUACY: (test code = 31033) (NOTE) INTERPRETATION: (test code = 84164) NILM/NO EPITH. ABNORMALITY;SEE BELOW GEAR SHAPER SET UP OPERATOR: (test code = 8101) HAYLIE MATIAS(ASCP)IAC LOCATION: (test code = 42311) (NOTE) CPT: (test code = 8140) (NOTE) GC AND CHLAMYDIA AMPLIFIED, [id number] 00:00:00* Test Item Value Reference Range Interpretation Comme nts GONORRHEA, TMA (test code = 74657) TEST NOT PERFORMED CHLAMYDIA, TMA (test code = 73106) TEST NOT PERFORMED ACUTE HEPATITIS [id number] 00:00:00* Test Item Value Reference Range Interpretation Comme nts HEPATITIS A IgM (test code = 00449) NON-REACTIVE HEPATITIS B CORE IgM (test c ode = 4644) NON-REACTIVE HEPATITIS B SURF AG (test co de = 2739) NON-REACTIVE HEPATITIS C ANTIBODY (test c ode = 4675) NON-REACTIVE HCV INDEX (test code = 37187) 0.11 INTERPRETATION HEPATITIS A: (test code = 2552) (NOTE) INTERPRETATION HEPATITIS B: (test code = 88432) (NOTE) INTERPRETATION HEPATITIS C: (test code = 88659) (NOTE) ACUTE HEPATITIS [id number] 00:00:00* Test Item Value Reference Range Interpretation Comme nts HEPATITIS A IgM (test code = 08413) NON-REACTIVE HEPATITIS B CORE IgM (test c ode = 4644) NON-REACTIVE HEPATITIS B SURF AG (test co de = 2739) NON-REACTIVE HEPATITIS C ANTIBODY (test c ode = 4675) NON-REACTIVE HCV INDEX (test code = 13590) 0.11 INTERPRETATION HEPATITIS A: (test code = 2552) (NOTE) INTERPRETATION HEPATITIS B: (test code = 22377) (NOTE) INTERPRETATION HEPATITIS C: (test code = 10298) (NOTE) [id number] 00:00:00* Test Item Value Reference Range Interpretation Comme nts RPR RESULT (test code = 3501) NON-REACTIVE RPR TITER (test code = 3500) NOT INDIC. TITER [id number] 00:00:00* Test Item Value Reference Range Interpretation Comme nts RPR RESULT (test code = 3501) NON-REACTIVE RPR TITER (test code = 3500) NOT INDIC. TITER HIV AB/AG COMBO RFLX [id number] 00:00:00* Test Item Value Reference Range Interpretation Comme nts HIV 1/2 4TH GEN, RFLX CONF ( test code = 3514) NON-REACTIVE HPV HIGH RISK WITH GENOTYPE, [id number] 00:00:00* Test Item Value Reference Range Interpretation Comme nts HPV HIGH RISK INTERP (test c ode = 29902) NEGATIVE HPV 16 (test code = 00260) NEGATIVE HPV 18 (test code = 03999) NEGATIVE HPV, HR, OTHER GENOTYPES (te st code = 95337) NEGATIVE ACUTE HEPATITIS [id number] 00:00:00* Test Item Value Reference Range Interpretation Comme nts HEPATITIS A IgM (test code = 24537) NON-REACTIVE HEPATITIS B CORE IgM (test c ode = 4644) NON-REACTIVE HEPATITIS B SURF AG (test co de = 2739) NON-REACTIVE HEPATITIS C ANTIBODY (test c ode = 4675) NON-REACTIVE HCV INDEX (test code = 32108) 0.11 INTERPRETATION HEPATITIS A: (test code = 2552) (NOTE) INTERPRETATION HEPATITIS B: (test code = 68910) (NOTE) INTERPRETATION HEPATITIS C: (test code = 21764) (NOTE) [id number] 00:00:00* Test Item Value Reference Range Interpretation Comme nts RPR RESULT (test code = 3501) NON-REACTIVE RPR TITER (test code = 3500) NOT INDIC. TITER [id number] 00:00:00* Test Item Value Reference Range Interpretation Comme nts RPR RESULT (test code = 3501) NON-REACTIVE RPR TITER (test code = 3500) NOT INDIC. TITER [id number] 00:00:00* Test Item Value Reference Range Interpretation Comme nts RPR RESULT (test code = 3501) NON-REACTIVE RPR TITER (test code = 3500) NOT INDIC. TITER HIV AB/AG COMBO RFLX [id number] 00:00:00* Test Item Value Reference Range Interpretation Comme nts HIV 1/2 4TH GEN, RFLX CONF ( test code = 3514) NON-REACTIVE HIV AB/AG COMBO RFLX [id number] 00:00:00* Test Item Value Reference Range Interpretation Comme nts HIV 1/2 4TH GEN, RFLX CONF ( test code = 3514) NON-REACTIVE HPV HIGH RISK WITH GENOTYPE, [id number] 00:00:00* Test Item Value Reference Range Interpretation Comme nts HPV HIGH RISK INTERP (test c ode = 69943) NEGATIVE HPV 16 (test code = 93751) NEGATIVE HPV 18 (test code = 62663) NEGATIVE HPV, HR, OTHER GENOTYPES (te st code = 32633) NEGATIVE HPV HIGH RISK WITH GENOTYPE, [id number] 00:00:00* Test Item Value Reference Range Interpretation Comme nts HPV HIGH RISK INTERP (test c ode = 91278) NEGATIVE HPV 16 (test code = 35510) NEGATIVE HPV 18 (test code = 89704) NEGATIVE HPV, HR, OTHER GENOTYPES (te st code = 50122) NEGATIVE ACUTE HEPATITIS [id number] 00:00:00* Test Item Value Reference Range Interpretation Comme nts HEPATITIS A IgM (test code = 08185) NON-REACTIVE HEPATITIS B CORE IgM (test c ode = 4644) NON-REACTIVE HEPATITIS B SURF AG (test co de = 2739) NON-REACTIVE HEPATITIS C ANTIBODY (test c ode = 4675) NON-REACTIVE HCV INDEX (test code = 18058) 0.11 INTERPRETATION HEPATITIS A: (test code = 2552) (NOTE) INTERPRETATION HEPATITIS B: (test code = 99644) (NOTE) INTERPRETATION HEPATITIS C: (test code = 09732) (NOTE) ACUTE HEPATITIS [id number] 00:00:00* Test Item Value Reference Range Interpretation Comme nts HEPATITIS A IgM (test code = 59232) NON-REACTIVE HEPATITIS B CORE IgM (test c ode = 4644) NON-REACTIVE HEPATITIS B SURF AG (test co de = 2739) NON-REACTIVE HEPATITIS C ANTIBODY (test c ode = 4675) NON-REACTIVE HCV INDEX (test code = 97462) 0.11 INTERPRETATION HEPATITIS A: (test code = 2552) (NOTE) INTERPRETATION HEPATITIS B: (test code = 81658) (NOTE) INTERPRETATION HEPATITIS C: (test code = 70450) (NOTE) [id number] 00:00:00* Test Item Value Reference Range Interpretation Comme nts RPR RESULT (test code = 3501) NON-REACTIVE RPR TITER (test code = 3500) NOT INDIC. TITER [id number] 00:00:00* Test Item Value Reference Range Interpretation Comme nts RPR RESULT (test code = 3501) NON-REACTIVE RPR TITER (test code = 3500) NOT INDIC. TITER [id number] 00:00:00* Test Item Value Reference Range Interpretation Comme nts RPR RESULT (test code = 3501) NON-REACTIVE RPR TITER (test code = 3500) NOT INDIC. TITER HPV HIGH RISK WITH GENOTYPE, [id number] 00:00:00* Test Item Value Reference Range Interpretation Comme nts HPV HIGH RISK INTERP (test c ode = 99930) NEGATIVE HPV 16 (test code = 32382) NEGATIVE HPV 18 (test code = 58222) NEGATIVE HPV, HR, OTHER GENOTYPES (te st code = 08589) NEGATIVE HPV HIGH RISK WITH GENOTYPE, [id number] 00:00:00* Test Item Value Reference Range Interpretation Comme [facility] HPV HIGH RISK INTERP (test c ode = 45857) NEGATIVE HPV 16 (test code = 69201) NEGATIVE HPV 18 (test code = 69326) NEGATIVE HPV, HR, OTHER GENOTYPES (te st code = 78499) NEGATIVE HIV AB/AG COMBO RFLX [id number] 00:00:00* Test Item Value Reference Range Interpretation Comme nts HIV 1/2 4TH GEN, RFLX CONF ( test code = 3514) NON-REACTIVE HIV AB/AG COMBO RFLX [id number] 00:00:00* Test Item Value Reference Range Interpretation Comme nts HIV 1/2 4TH GEN, RFLX CONF ( test code = 3514) NON-REACTIVE"
--- NOTE | 2023-08-10 02:47 | EDPHYS ---
Physician Documentation [facility] Name: Gwen Cheema Age: 32 yrs Sex: Female : 1990 Arrival Date: 08/10/2023 Time: 02:31 Bed 6 Private MD: ED Physician Doug Stoddard HPI: 08/09 02:44 This 32 yrs old Female presents to ER via Unassigned with complaints of Anxiety. sp3 02:44 32-year-old female with history of anxiety, who states that she lost her Seroquel and sp3 other psych meds now presents with mind racing and anxiety. She denies suicidal ideation, homicidal ideation or psychosis/hearing voices. She denies any somatic symptoms including headache, neck pain, chest pain, shortness breath, abdominal pain, vomiting, diarrhea, syncope, near syncope, skin rash, bleeding, or any other signs or symptoms on ROS at this time. She wants a "refill of her meds".. Historical: - Allergies: 02:45 Geodon; rv 02:45 RISPERIDONE; rv 02:45 Zoloft; rv 02:45 Zyprexa; rv - PMHx: 02:45 Anxiety; Bipolar disorder; Depression; PTSD; Seizures; rv - PSHx: 02:45 ruptured ovarian cyst; rv - Immunization history:: Adult Immunizations up to date. - Infectious Disease History:: Denies. - Social history:: Smoking status: Patient reports the use of cigarette tobacco products, smokes one pack cigarettes per day. ROS: 02:45 Constitutional: Negative for fever, chills, and weight loss, Eyes: Negative for injury, sp3 pain, redness, and discharge, ENT: Negative for injury, pain, and discharge, Neck: Negative for injury, pain, and swelling, Cardiovascular: Negative for chest pain, palpitations, and edema, Respiratory: Negative for shortness of breath, cough, wheezing, and pleuritic chest pain, Abdomen/GI: Negative for abdominal pain, nausea, vomiting, diarrhea, and constipation, Back: Negative for injury and pain, MS/Extremity: Negative for injury and deformity, Skin: Negative for injury, rash, and discoloration, Neuro: Negative for headache, weakness, numbness, tingling, and seizure, Allergy/Immunology: Negative for hives, rash, and allergies, Endocrine: Negative for neck swelling, polydipsia, polyuria, polyphagia, and marked weight changes, 02:45 All other systems are negative, Exam: 02:45 Constitutional: This is a well developed, well nourished patient who is awake, alert, sp3 and in no acute distress. Head/Face: Normocephalic, atraumatic. Eyes: Pupils equal round and reactive to light, extra-ocular motions intact. Lids and lashes normal. Conjunctiva and sclera are non-icteric and not injected. Cornea within normal limits. Periorbital areas with no swelling, redness, or edema. ENT: Nares patent. No nasal discharge, no septal abnormalities noted. External auditory canals are clear. Oropharynx with no redness, swelling, or masses, exudates, or evidence of obstruction, uvula midline. Mucous membranes moist. Neck: Trachea midline, no thyromegaly or masses palpated, and no cervical lymphadenopathy. Supple, full range of motion without nuchal rigidity, or vertebral point tenderness. No Meningismus. Chest/axilla: Normal chest wall appearance and motion. Nontender with no deformity. No lesions are appreciated. Cardiovascular: Regular rate and rhythm with a normal S1 and S2. No gallops, murmurs, or rubs. Normal PMI, no JVD. No pulse deficits. Respiratory: Lungs have equal breath sounds bilaterally, clear to auscultation and percussion. No rales, rhonchi or wheezes noted. No increased work of breathing, no retractions or nasal flaring. Abdomen/GI: Soft, non-tender, with normal bowel sounds. No distension or tympany. No guarding or rebound. No evidence of tenderness throughout. Back: No spinal tenderness. No costovertebral tenderness. Full range of motion. Skin: Warm, dry with normal turgor. Normal color with no rashes, no lesions, and no evidence of cellulitis. MS/ Extremity: Pulses equal, no cyanosis. Neurovascular intact. Full, normal range of motion. Neuro: Awake and alert, GCS 15, oriented to person, place, time, and situation. Cranial nerves II-XII grossly intact. Motor strength 5/5 in all extremities. Sensory grossly intact. Cerebellar exam normal. Normal gait. 02:45 Psych: No SI/HI, psychosis or responses to internal stimuli. Patient is anxious.. Vital Signs: 02:36 BP 153 / 103; Pulse 91; Resp 19 S; Temp 97.7(O); Pulse Ox 100% on R/A; Weight 45.36 kg; ha1 MDM: 02:44 Patient medically screened. sp3 02:46 Data reviewed: vital signs, nurses notes. ED course: 32-year-old female with anxiety. sp3 No psychiatric emergency or medical emergency noted. Will give alprazolam 0.5 mg p.o. x 1 and discharge patient home with follow-up to her psychiatrist.. Administered Medications: 02:40 Drug: ALPRAZolam PO Tablet 0.5 mg PO once Route: PO; ha1 02:55 Follow up: Response: No adverse reaction ha1 Disposition Summary: 08/10/23 02:47 Discharge Ordered Notes: Location: Home sp3 Condition: Stable sp3 Diagnosis - Anxiety sp3 Followup: sp3 - With: Private Physician - When: Upon discharge from the Emergency Department - Reason: Continuance of care Discharge Instructions: - Discharge Summary Sheet sp3 - Generalized Anxiety Disorder, Adult sp3 Forms: - Medication Reconciliation Form sp3 - Thank You Letter sp3 - Antibiotic Education sp3 - Prescription Opioid Use sp3 - Patient Portal Instructions sp3 - Leadership Thank You Letter sp3 Signatures: Paul Floyd, RN RN Doug Bartholomew MD MD sp3 Aditi Powell RN RN ha1
--- NOTE | 2023-08-10 02:47 | ER ---
Nurse's Notes [facility] Name: Gwen Cheema Age: 32 yrs Sex: Female : 1990 Arrival Date: 08/10/2023 Time: 02:31 Bed 6 Private MD: Diagnosis: Anxiety Presentation: 08/09 02:36 Chief complaint: Patient states: I ran out of my anxiety medications and I am feeling ha1 very anxious. 02:36 Coronavirus screen: Vaccine status: Patient reports being unvaccinated. Ebola Screen: ha1 No symptoms or risks identified at this time. Initial Sepsis Screen: Does the patient meet any 2 criteria? No. Patient's initial sepsis screen is negative. Does the patient have a suspected source of infection? No. Patient's initial sepsis screen is negative. Risk Assessment: Do you want to hurt yourself or someone else? Patient reports no desire to harm self or others. Onset of symptoms was August 10, 2023. 02:36 Method Of Arrival: Ambulatory ha1 02:36 Acuity: MIS 5 ha1 Triage Assessment: 02:36 General: Appears comfortable, Behavior is cooperative, anxious. Pain: Denies pain. ha1 Neuro: Level of Consciousness is awake, alert, obeys commands, Oriented to person, place, time, situation. Cardiovascular: Capillary refill < 3 seconds Patient's skin is warm and dry. Respiratory: Airway is patent Respiratory effort is even, unlabored, Respiratory pattern is regular, symmetrical. GI: No signs and/or symptoms were reported involving the gastrointestinal system. : No signs and/or symptoms were reported regarding the genitourinary system. Derm: Skin is pink, warm \T\ dry. Musculoskeletal: Circulation, motion, and sensation intact. Range of motion: intact in all extremities. Historical: - Allergies: 02:45 Geodon; rv 02:45 RISPERIDONE; rv 02:45 Zoloft; rv 02:45 Zyprexa; rv - PMHx: 02:45 Anxiety; Bipolar disorder; Depression; PTSD; Seizures; rv - PSHx: 02:45 ruptured ovarian cyst; rv - Immunization history:: Adult Immunizations up to date. - Infectious Disease History:: Denies. - Social history:: Smoking status: Patient reports the use of cigarette tobacco products, smokes one pack cigarettes per day. Screenin:45 [facility] ED Fall Risk Assessment (Adult) History of falling in the last 3 months, rv including since admission No falls in past 3 months (0 pts) Score/Fall Risk Level 0 - 2 = Low Risk Oriented to surroundings, Maintained a safe environment, Educated pt \T\ family on fall prevention, incl call for assistance when getting out of bed, Assessed \T\ reinforced patient's understanding of fall precautions. Abuse screen: Denies threats or abuse. Denies injuries from another. Nutritional screening: No deficits noted. Nutritional screening: No deficits noted. Tuberculosis screening: No symptoms or risk factors identified. Assessment: 02:45 General: Appears comfortable, Behavior is calm, cooperative. Pain: Denies pain. Neuro: rv Level of Consciousness is awake, alert, obeys commands, Oriented to person, place, time, situation. Cardiovascular: Capillary refill < 3 seconds Patient's skin is warm and dry. Respiratory: Airway is patent Respiratory effort is even, unlabored. GI: No signs and/or symptoms were reported involving the gastrointestinal system. : No signs and/or symptoms were reported regarding the genitourinary system. Derm: Skin is intact. Vital Signs: 02:36 BP 153 / 103; Pulse 91; Resp 19 S; Temp 97.7(O); Pulse Ox 100% on R/A; Weight 45.36 kg; ha1 ED Course: 02:36 Patient arrived in ED. gm2 02:36 Doug Stoddard MD is Attending Physician. sp3 02:36 Arm band placed on. ha1 02:45 Paul Floyd, MATEO is Primary Nurse. rv 02:45 Patient has correct armband on for positive identification. rv 02:45 No provider procedures requiring assistance completed. Patient did not have IV access rv during this emergency room visit. 02:49 Triage completed. ha1 02:56 Provided Education on: medication administration . ha1 Administered Medications: 02:40 Drug: ALPRAZolam PO Tablet 0.5 mg PO once Route: PO; ha1 02:55 Follow up: Response: No adverse reaction ha1 Medication: 02:45 VIS not applicable for this client. rv Outcome: 02:47 Discharge ordered by . sp3 02:55 Discharged to home ambulatory, ha1 02:55 Condition: stable 02:55 Discharge instructions given to patient, Instructed on discharge instructions, follow up and referral plans. Demonstrated understanding of instructions, follow-up care, 02:57 Patient left the ED. ha1 Signatures: Paul Floyd RN RN rv Doug Stoddard MD MD sp3 Aditi Powell RN RN ha1 Isabel Vidal 2
[2023-08-10] MEDS ORDERED: ALPRAZOLAM 0.5 MG TABLET ONE (02:49)
[2023-08-10 06:03] VITALS: BP 153/103; TEMP 97.7; O2SAT 100
== END 2023-08-10 02:57 | disposition home or self-care (01) ==
LOC: ER 02:31
DX: F41.9 Anxiety disorder, unspecified (principal)
CPT/HCPCS: 99283

== ENCOUNTER 2023-09-23 23:44 | Emergency (ER) | payer OTHER ==
--- OUTSIDE RECORDS SUMMARY | 2023-09-23 23:53 | XMS REPORT | Continuity of Care Document ---
Author Name Unknown Address [address] [facility] [address]. [address] [place] [address] [facility] Address [address] [facility]. [address] [place] [address] Care Team Providers Care Activities Manager Name Role Phone Clau Greer ROGERS Primary Care Physician YANICK LYLE Attending Clinician UnaLAURIE Mike Attending Clinician Unavailable Azam Rooney MD Attending Clinician [phone] Laurie Bowen MD Attending Clinician [phone] CHASITY SALVADOR Attending Clinician Unavailable DIANN PONCE Attending Clinician Unavailable ELLIOT CAMEJO Attending Clinician Unavailable MAYNOR SAMUEL Attending Clinician Unavailable GUILHERME WILDER Attending Clinician Unavailable Guilherme Wilder MD Attending Clinician [phone] Doctor Unassigned, [place] Attending Clinician Cathie Shelton MD Attending Clinician [phone] RIVERA PINK Attending Clinician Unavailable CATHIE SUBRAMANIAN Attending Clinician UnavailRivera Bland Attending Clinician [phone] JESSE DONG Attending Clinician Unavailable ERICA KLINE Attending Clinician Unavailable RADIOLOGY Attending Clinician Unavailable Radiology Attending Clinician Unavailable TIMOTEO CISSE Attending Clinician Unavailable Timoteo May Attending Clinician [phone] Karen Burnett PA-C Attending Clinician KAREN BURNETT Attending Clinician Unavailable Jesse Dong MD Attending Clinician [phone] BRYN BRADLEY Attending Clinician Unavailab roberto STONE Attending Clinician Unavailable RENUKA NELSON Attending Clinician Un available CARL WORKMAN Attending Clinician Unavailable AMNA CLARK Attending Clinician Unavailable RUSTAM THRASHER Attending Clinician Unavailable ISRAEL PEREZ Attending Clinician Unavailable ISRAEL PEREZ Attending Clinician Unavailable LENNOX CABRERA Attending Clinician UnavailAZEB Green Attending Clinician UnavailNISH Cardozo Attending Clinician UnavailYANICK Ludwig Admitting Clinician LAURIE James Admitting Clinician Unavailable TIMOTEO CISSE Admitting Clinician Unavailable BERTHA Admitting Clinician Unavailable CARL WORKMAN Admitting Clinician Unavailable Payers Payer Name Policy Type Policy Number Effective Date Expirati on Date Source [facility] [id number] 00:00:00 [facility] [id number] 00:00:00 [facility] [id number] 2023 00:00:00 [facility] 9 [id number] 2023 00:00:00 [facility] [id number] 2022 00:00:00 [facility] MEDICAID [id number] 2018 00:00:00 Problems Condition Name Condition Details Condition Category Status Onset Date Resolution Date Last Treatment Date Treating Clinician Comments Source Infection of hand due to bite Infection of hand due to bite Disease Active 12-12 00:00: 00 [facility] Gastroesop hageal reflux disease without esophagiti s Gastroesop hageal reflux disease without esophagiti s Disease Active 2018-04 205 00:00: 00 [facility] Abnormal maternal glucose tolerance, antepartum Abnormal maternal glucose tolerance, antepartum Disease Active 2018-04 00:00: 00 [facility] Underweigh t Underweigh t Disease Active 01-21 00:00: 00 [facility] History of bipolar disorder History of bipolar disorder Disease Active 01-21 00:00: 00 [facility] Polysubsta nce abuse Polysubsta nce abuse Disease Active 01-17 00:00: 00 [facility] PTSD (post-trau matic stress disorder) PTSD (post-trau matic stress disorder) Disease Active 01-17 00:00: 00 [facility] Trichomona l vulvovagin itis Trichomona l vulvovagin itis Disease Active 10-26 00:00: 00 [facility] Hepatitis C antibody test positive Hepatitis C antibody test positive Disease Active 10-25 00:00: 00 Overview: Formattin g of this note might be different from the original. PCR negative [facility] Multiparit y Multiparit y Disease Active 10-22 00:00: 00 [facility] Eating disorder Eating disorder Disease Active 10-22 00:00: 00 [facility] Anxiety and depression Anxiety and depression Disease Active 10-22 00:00: 00 [facility] Lost custody of children Lost custody of children Disease Active 10-22 00:00: 00 [facility] History of seizures History of seizures Disease Active 10-22 00:00: 00 [facility] Allergies, Adverse Reactions, Alerts Allergy Name Allergy Type Status Severity Reaction(s) Onset Date Inactive Date Treating Clinician Comments Source Ziprasid one Propensi ty to adverse reaction s Active 3- 00:00: 00 AMS Amy Seybold - Externa l [place] - Intraven ous Propensi ty to adverse reaction to drug Active 24 00:00: 00 Azam Raphael Ziprasid one Mesylate Propensi ty to adverse reaction s Active Hallucinatio ns 1-10 00:00: 00 [facility] Risperid one Propensi ty to adverse reaction s Active Hallucinatio ns - 00:00: 00 [facility] ZIPRASID ONE MESYLATE DRUG INGREDI Active Hallucinates 05-06 00:00: 00 [facility] RISPERID ONE DRUG INGREDI Active Hallucinates 05-06 00:00: 00 [facility] NO KNOWN ALLERGIE S Drug Class Active [facility] Social History Social Habit Start Date Stop Date Quantity Comments Source Sexual orientation 2023-06-25 10:05:01 Heterosexual (finding) Amy Jacinto - External History of tobacco use 2001-10-22 00:00:00 Cigarette Smoker [facility] History SDOH Alcohol Std Drinks [facility] History SDOH Alcohol Binge [facility] History SDOH Alcohol Comment [place] [facility] Alcohol intake 2023-08-19 00:00:00 2023-08-19 00:00:00 0 /d [facility] History of Social function 2023-06-25 00:00:00 2023-06-25 00:00:00 Amy Jacinto - External Exposure to SARS-CoV-2 (event) 2022-04-20 00:00:00 2022-04-30 14:04:00 Not sure [facility] Cigarettes smoked current (pack per day) - Reported 2022-04-30 00:00:00 2022-04-30 00:00:00 [facility] Tobacco use and exposure 2022-04-30 00:00:00 2022-04-30 00:00:00 Smokeless tobacco non-user [facility] Tobacco Comment 2022-04-30 00:00:00 2022-04-30 00:00:00 Has too much stress to quit [facility] History SDOH Alcohol Frequency 2018-10-22 00:00:00 2018-10-22 00:00:00 1 [facility] Sex Assigned At 1990 00:00:00 1990 00:00:00 F Amy Jacinto - External Smoking Status Start Date Stop Date Source Tobacco smoking consumption unknown Amy Hernandez brooklynn Smokes tobacco daily 2022-04-30 00:00:00 [facility] Medications Ordered Medication Name Filled Medication Name Start Date Stop Date Current Medication? Ordering Clinician Indication Dosage Frequency Signature (SIG) Comments Components Source ketorolac (TORADOL) injection 30 mg 08-19 05:00: 00 08-19 04:39 :00 No 30mg 30 mg, Slow IV Push, ONCE NOW, 1 dose, On Thu08/20/23 at 0000, JENNIFER [facility] NaCl 0.9% (NS) bolus infusion 1,000 mL 08-19 05:00: 00 08-19 05:45 :00 No 1000mL at 999 mL/hr, 1,000 mL, IV Piggyback, ONCE, 1 dose, On Thu08/20/23 at 0000, STAT [facility] diclofenac 75 mg EC tablet 08-19 00:00: 00 Yes [id number] 75mg Take 1 tablet by mouth in the morning and 1 tablet in the evening. Take with meals. [facility] hydroxyzine HCl 10 mg tablet 07-15 00:00: 00 Yes mg Azam Raphael hydrOXYzine HCl 10 MG oral Tablet 07-15 00:00: 00 08-05 04:59 :00 Yes [id number] 10mg [id number] 3D Take 1 tablet (10 mg total) by mouth 3 times daily as needed for anxiety for up to 20 days. Amy benjamin Mirtazapine 7.5 MG oral Tablet 00:00: 00 Yes [id number] 7.5mg Take 1 tablet (7.5 mg total) by mouth nightly. Amy Colindres l 10 ML Q 4 TO 6 HOURS PRN COUGH FOR 5 DAYS 2022-04 00:00: 00 08-18 00:00 :00 No [id number] Azamaxel Raphael ibuprofen (IBU) tablet 800 mg 2022-04 10:30: 00 03-03 09:33 :00 No 800mg 800 mg, Oral, ONCE, 1 dose, On Thu03/03/23 at 0430, Routine [facility] ibuprofen 800 mg tablet 2022-04 1-07 00:00: 00 Yes [id number] 800mg Take 1 tablet by mouth every 8 (eight) hours as needed for Alternate with Morrison for pain scale 1-3. [facility] KETOROLAC 10MG 2022-04 0-31 00:00: 00 Yes Azam Raphael ONDANSETRON 4MG ODT 2022-04 0-30 00:00: 00 Yes Azam Raphael DOXYCYC MONO 100MG 2022-04 0-30 00:00: 00 Yes Azam Raphael ONDANSETRON ODT 4 MG 2022-04 0-20 00:00: 00 Yes Azam Raphael DOXYCYCLINE MONO 100 MG 2022-04 0-20 00:00: 00 Yes Azam Raphael METRONIDAZO LE 500 MG 2022-04 0-20 00:00: 00 Yes Azam Raphael KETOROLAC 10 MG 2022-04 0-18 00:00: 00 Yes Azam Raphael CYCLOBENZAP R 5MG -20 00:00: 00 Yes Azam Raphael DICLOFEN SOD 50MG EC 9-20 00:00: 00 Yes Azam Raphael 1 CAPSULE TWICE A DAY 9-15 00:00: 00 08-18 00:00 :00 No 300 Azam Raphael 1 CAPSULE TWICE A DAY 9-14 00:00: 00 08-18 00:00 :00 No 300 Azam Raphael PREDNISONE 50MG 8-10 00:00: 00 Yes Azam Raphael PREDNISONE 50 MG 8-09 00:00: 00 Yes 50 Azam Raphael PAXLOVID [id number] 7- 00:00: 00 Yes Azam Raphael 10 ML Q 4 TO 6 HOURS PRN COUGH FOR 5 DAYS 11-17 00:00: 00 08-18 00:00 :00 No [id number] Azam Raphael 300 MG NIRMATRELVI R (TWO 150 MG TABLETS) WITH 100 MG RITONAVIR (ONE 100 MG TABLET) WITH ALL THREE TABLETS TAKEN TOGETHER ORALLY TWICE DAILY FOR 5 DAYS. 11-17 00:00: 00 08-18 00:00 :00 No Azam Raphael TAKE 1 TABLET DAILY NEEDED. 11-17 00:00: 00 08-18 00:00 :00 No 10 Azam Raphael CLOBETASOL OIN 0.05% 11-11 00:00: 00 Yes Azam Raphael TAKE 1 TABLET DAILY. 11-08 00:00: 00 08-18 00:00 :00 No 50 Azam Raphael APPLY AND GENTLY MASSAGE INTO AFFECTED AREA(S) TWICE DAILY. 11-08 00:00: 00 08-18 00:00 :00 No 5 Azam Raphael METHYLPRED 10-20 00:00: 00 Yes Azam Raphael TAKE 1 TABLET BY MOUTH TWICE DAILY UNTIL ALL TAKEN 10-20 00:00: 00 Yes 500 Azam Raphael APPLY DIRECTED. 10-20 00:00: 00 08-18 00:00 :00 No 2 Azam Raphael FOLLOW DIRECTIONS ON PACKAGE 10-20 00:00: 00 08-18 00:00 :00 No 4 Azam Yoni Raphael BUSPIRONE 6- 00:00: 00 Yes Azam Raphael QUETIAPINE 6-07 00:00: 00 Yes 25 Azam Raphael TAKE 1 TABLET BY MOUTH AT BEDTIME 5- 00:00: 00 Yes Azam Raphael TAKE 1 TABLET BY MOUTH TWICE DAILY 5- 00:00: 00 Yes Azam Yoni Raphael OLANZAPINE 4-01 00:00: 00 Yes 15 Azam Raphael OLANZAPINE 3-02 00:00: 00 Yes 15 Azam Raphael OLANZAPINE 2-06 00:00: 00 Yes Azam Raphael TAKE 1 TABLET BY MOUTH TWICE DAILY 2-06 00:00: 00 Yes Azam Raphael METRONIDAZO L 1-17 00:00: 00 Yes Azam Raphael TAKE 1 CAPSULE BY MOUTH TWICE DAILY 1-12 00:00: 00 08-18 00:00 :00 No Azam Raphael No known medications 1-04 14:13: 57 No No known medication s [facility] METRONIDAZO L 0 1-04 00:00: 00 Yes Azam Raphael BUSPIRONE 2021-04 1-11 00:00: 00 Yes Azam Raphael PREDNISONE 2021-04 1- 00:00: 00 Yes Azam Raphael TAKE 1 CAPSULE BY MOUTH TWICE DAILY 2021-04 0 00:00: 00 No Dose Unknown 2021-04 00:00: 00 Yes Azam Raphael TAKE 1 TABLET BY MOUTH EVERY 8 HOURS WITH FOOD AND DRINK PLENTY OF WATER FOR PAIN 0 01-07 00:00: 00 No TAKE 1 TABLET BY MOUTH EVERY 8 HOURS WITH FOOD AND DRINK PLENTY OF WATER FOR PAIN 0 01-07 00:00: 00 No TAKE 1 TABLET BY MOUTH EVERY 8 HOURS WITH FOOD AND DRINK PLENTY OF WATER FOR PAIN 0 01-07 00:00: 00 08-18 00:00 :00 No Azam Raphael BUSPIRONE TAB 15MG 2-0 8-29 00:00: 00 No BUSPIRONE TAB 15MG 2022-0 8-29 00:00: 00 No BUSPIRONE TAB 15MG 2022-0 8-29 00:00: 00 Yes Azam Raphael QUETIAPINE TAB 25MG 2022-0 8-22 00:00: 00 No QUETIAPINE TAB 25MG 2022-0 8-22 00:00: 00 No QUETIAPINE TAB 25MG 2022-0 8-22 00:00: 00 Yes Azam Raphael Dose Unknown 2-0 8-09 00:00: 00 No Dose Unknown 2022-0 8-09 00:00: 00 No Dose Unknown 2022-0 8-09 00:00: 00 Yes Azam Raphael Dose Unknown 2-0 7-08 00:00: 00 No Dose Unknown 2022-0 7-08 00:00: 00 No Dose Unknown 2022-0 7-08 00:00: 00 No Dose Unknown 2022-0 7-08 00:00: 00 No Dose Unknown 2022-0 7-08 00:00: 00 Yes Azam Raphael Dose Unknown 2022-0 7-08 00:00: 00 Yes Azam Raphael Dose Unknown 10-30 00:00: 00 No Dose Unknown 10-30 00:00: 00 No Dose Unknown 10-30 00:00: 00 No Dose Unknown 10-30 00:00: 00 No Dose Unknown 10-30 00:00: 00 No Dose Unknown 10-30 00:00: 00 No Dose Unknown 10-30 00:00: 00 No Dose Unknown 10-30 00:00: 00 No Dose Unknown 10-30 00:00: 00 No Dose Unknown 10-30 00:00: 00 Yes Azam Raphael Dose Unknown 10-30 00:00: 00 Yes Azam Raphael Dose Unknown 10-30 00:00: 00 Yes Azam Raphael iopamidol (ISOVUE 370-500 mL) injection 80 mL 10-24 14:15: 00 10-24 13:09 :00 No [id number] 80mL 80 mL, Intravenou s, ONCE, 1 dose, On [facility] 10/24/21 at 0915, [facility] ibuprofen 600 mg tablet 10-18 00:00: 00 No 1mg amoxicillin 500 mg capsule 10-18 00:00: 00 No 1mg ibuprofen 600 mg tablet 10-18 00:00: 00 No 1mg amoxicillin 500 mg capsule 10-18 00:00: 00 No 1mg ibuprofen 600 mg tablet 10-18 00:00: 00 No 1mg amoxicillin 500 mg capsule 10-18 00:00: 00 No 1mg ibuprofen 600 mg tablet 10-18 00:00: 00 Yes 1mg Azam Raphael amoxicillin 500 mg capsule 10-18 00:00: 00 Yes 1mg Azam Raphael ketorolac (TORADOL) injection 30 mg 09-23 20:30: 00 09-23 19:44 :00 No 30mg 30 mg, Slow IV Push, ONCE, 1 dose, On [facility] 09/23/21 at 1530, JENNIFER
Fa culty member approving Restricted medication : TIMOTEO CISSE [facility] iopamidol (ISOVUE 370-500 mL) injection 100 mL 09-23 20:00: 00 09-23 20:15 :00 No [id number] 100mL 100 mL, Intravenou s, ONCE, 1 dose, On Thu09/23/21 at 1515, Routine [facility] ondansetron (ZOFRAN (PF)) injection 4 mg 09-23 19:45: 00 09-23 19:43 :00 No 4mg 4 mg, Slow IV Push, ONCE, 1 dose, On Thu09/23/21 at 1445, JENNIFER [facility] No known medications 09-23 13:33: 49 No [facility] metronidazo le 500 mg tablet 08-19 00:00: 00 No 1mg metronidazo le 500 mg tablet 08-19 00:00: 00 No 1mg metronidazo le 500 mg tablet 08-19 00:00: 00 No 1mg metronidazo le 500 mg tablet 08-19 00:00: 00 Yes 1mg Azam Raphael Dose Unknown 08-15 00:00: 00 No Dose Unknown 08-15 00:00: 00 No Dose Unknown 08-15 00:00: 00 No Dose Unknown 08-15 00:00: 00 Yes Azam Raphael ProAir HFA 90 mcg/actuati on aerosol inhaler 08-07 00:00: 00 No 1mcg/ac tuation Ventolin HFA 90 mcg/actuati on aerosol inhaler 08-07 00:00: 00 No 12mcg/a ctuatio n ProAir HFA 90 mcg/actuati on aerosol inhaler 4- 00:00: 00 No 1mcg/ac tuation Ventolin HFA 90 mcg/actuati on aerosol inhaler - 00:00: 00 No 12mcg/a ctuatio n ProAir HFA 90 mcg/actuati on aerosol inhaler 0 4-13 00:00: 00 No 1mcg/ac tuation Ventolin HFA 90 mcg/actuati on aerosol inhaler 0 4-13 00:00: 00 No 12mcg/a ctuatio n ProAir HFA 90 mcg/actuati on aerosol inhaler 0 4-13 00:00: 00 Yes 1mcg/ac tuation Azam Raphael Ventolin HFA 90 mcg/actuati on aerosol inhaler 0 4-13 00:00: 00 Yes 12mcg/a ctuatio n Azam Raphael HYDROXYZ HCL 0 4-13 00:00: 00 Yes 25 Azam Raphael Xopenex HFA 45 mcg/actuati on aerosol inhaler 0 3-21 00:00: 00 No 1mcg/ac tuation sulfamethox azole 800 mg-trimetho prim 160 mg tablet 0 3-21 00:00: 00 No 1mg amoxicillin 875 mg-potassiu m clavulanate 125 mg tablet 0 3-21 00:00: 00 No 1mg ibuprofen 600 mg tablet 0 3-21 00:00: 00 No 1mg Dose Unknown 0 3-21 00:00: 00 No Dose Unknown 0 3-21 00:00: 00 No Xopenex HFA 45 mcg/actuati on aerosol inhaler 0 3-21 00:00: 00 No 1mcg/ac tuation sulfamethox azole 800 mg-trimetho prim 160 mg tablet 0 3-21 00:00: 00 No 1mg amoxicillin 875 mg-potassiu m clavulanate 125 mg tablet 0 3-21 00:00: 00 No 1mg ibuprofen 600 mg tablet 0 3-21 00:00: 00 No 1mg Dose Unknown 0 3-21 00:00: 00 No Dose Unknown 0 3-21 00:00: 00 No Dose Unknown 2021-0 3-21 00:00: 00 No Dose Unknown 2021-0 3-21 00:00: 00 No Dose Unknown 0 3-21 00:00: 00 No Dose Unknown 2022-0 3-21 00:00: 00 No Dose Unknown 2022-0 3-21 00:00: 00 No Xopenex HFA 45 mcg/actuati on aerosol inhaler 2021-0 3-21 00:00: 00 Yes 1mcg/ac tuation Azam Raphael sulfamethox azole 800 mg-trimetho prim 160 mg tablet 2021-0 3-21 00:00: 00 Yes 1mg Azam Raphael amoxicillin 875 mg-potassiu m clavulanate 125 mg tablet 2021-0 3-21 00:00: 00 Yes 1mg Azam Raphael ibuprofen 600 mg tablet 2021-0 3-21 00:00: 00 Yes 1mg Azam Raphael Dose Unknown 2-0 3-21 00:00: 00 Yes Azam Raphael Dose Unknown 2022-0 3-21 00:00: 00 Yes Azam Raphael Dose Unknown 2022-0 3-18 00:00: 00 No Dose Unknown 2022-0 3-18 00:00: 00 No Dose Unknown 2022-0 3-18 00:00: 00 No Dose Unknown 2022-0 3-18 00:00: 00 No Dose Unknown 2022-0 3-18 00:00: 00 Yes Azam Raphael Dose Unknown 2022-0 3-18 00:00: 00 Yes Azam Raphael Dose Unknown 2022-0 3-14 00:00: 00 No Dose Unknown 2022-0 3-14 00:00: 00 No Dose Unknown 2022-0 3-14 00:00: 00 No Dose Unknown 2022-0 3-14 00:00: 00 No Dose Unknown 2022-0 3-14 00:00: 00 Yes Azam Raphael Dose Unknown 2022-0 3-14 00:00: 00 Yes Azam Raphael Dose Unknown 2022-0 3-13 00:00: 00 No Dose Unknown 2022-0 3-13 00:00: 00 No Dose Unknown 2022-0 3-13 00:00: 00 No Dose Unknown 2022-0 3-13 00:00: 00 No Dose Unknown 2022-0 3-13 00:00: 00 Yes Azam Raphael Dose Unknown 2022-0 3-13 00:00: 00 Yes Azam Raphael HYDROXYZ HCL 2-0 2-28 00:00: 00 Yes Tiffany Raphael QUETIAPINE 0 2-28 00:00: 00 Yes 25 Aazm Raphael Zyprexa 5 mg tablet 0 2-17 00:00: 00 No 1mg Zyprexa 5 mg tablet 0 2-17 00:00: 00 No 1mg Zyprexa 5 mg tablet 0 2-17 00:00: 00 Yes 1mg Azam Raphael buspirone 15 mg tablet 0 2-11 00:00: 00 No 1mg buspirone 15 mg tablet 0 2-11 00:00: 00 No 1mg buspirone 15 mg tablet 0 2-11 00:00: 00 Yes 1mg Azam Raphael ProAir HFA 90 mcg/actuati on aerosol inhaler 2020-04 0-18 00:00: 00 No 2mcg/ac tuation Tessalon Perles 100 mg capsule 2020-04 0-18 00:00: 00 No 12mg ProAir HFA 90 mcg/actuati on aerosol inhaler 2020-04 0-18 00:00: 00 No 2mcg/ac tuation Tessalon Perles 100 mg capsule 2020-04 0-18 00:00: 00 No 12mg ProAir HFA 90 mcg/actuati on aerosol inhaler 2020-04 0-18 00:00: 00 Yes 2mcg/ac tuation Azam Raphael Tessalon Perles 100 mg capsule 2020-04 0-18 00:00: 00 Yes 12mg Azam Raphael ProAir HFA 90 mcg/actuati on aerosol inhaler 2020-04 0-12 00:00: 00 No 2mcg/ac tuation ProAir HFA 90 mcg/actuati on aerosol inhaler 2020-04 0-12 00:00: 00 No 2mcg/ac tuation ProAir HFA 90 mcg/actuati on aerosol inhaler 2020-04 0-12 00:00: 00 Yes 2mcg/ac tuation Azam Raphael Zithromax 250 mg tablet 2020-04 0-06 00:00: [...] 250 mg tablet 2020-04 0-06 00:00: 00 Yes 1mg Azam Raphael Flonase Allergy Relief 50 mcg/actuati on nasal spray,suspe nsion 2020-04 0-06 00:00: 00 Yes 2mcg/ac tuation Azam Raphael Bromfed DM 2 mg-30 mg-10 mg/5 mL oral syrup 2020-04 0-06 00:00: 00 Yes 10mg/5 mL Azam Raphael hydroxyzine HCl 25 mg tablet 3-04 00:00: 00 No 1mg Protonix 40 mg tablet,dung yed release 0 3- 00:00: 00 No 1mg hydroxyzine HCl 25 mg tablet 0 3- 00:00: 00 No 1mg Protonix 40 mg tablet,dung yed release 0 3- 00:00: 00 No 1mg Protonix 40 mg tablet,dung yed release 0 3- 00:00: 00 Yes 1mg Azam Raphael hydroxyzine HCl 25 mg tablet 0 3-04 00:00: 00 Yes 1mg Azam Raphael Protonix 40 mg tablet,dung yed release 2020-0 3- 00:00: 00 No 1mg hydroxyzine HCl 25 mg tablet 0 3-03 00:00: 00 No 1mg Protonix 40 mg tablet,dung yed release 0 3-03 00:00: 00 No 1mg hydroxyzine HCl 25 mg tablet 0 3-03 00:00: 00 No 1mg Protonix 40 mg tablet,dung yed release 06-27 00:00: 00 Yes 1mg Azam Raphael hydroxyzine HCl 25 mg tablet 06-27 00:00: 00 Yes 1mg Azam Raphael No known medications 05-23 18:00: 03 No [facility] methylpredn isolone 4 mg tablets in a dose pack 2019-04 00:00: 00 No mg methylpredn isolone 4 mg tablets in a dose pack 2019-04 00:00: 00 No mg methylpredn isolone 4 mg tablets in a dose pack 2019-04 00:00: 00 Yes mg Azam Raphael Flagyl 500 mg tablet 2019-04 00:00: 00 No 1mg Flagyl 500 mg tablet 2019-04 00:00: 00 No 1mg Flagyl 500 mg tablet 2019-04 00:00: 00 Yes 1mg Azam Raphael NUVARING 0.12-0.015 mg/24 hr vaginal insert 07-10 00:00: 00 05-23 00:00 :00 No 1{each} Insert 1 Each into vagina once every month. Insert vaginally and leave in place for 3 consecutiv e weeks, then remove for 1 week. [facility] busPIRone 15 mg tablet 2018-04 00:00: 00 05-23 00:00 :00 No [id number] 15mg Take 1 tablet by mouth 2 (two) times daily. [facility] vitamin w/FA tablet 2018-04 00:00: 00 05-23 00:00 :00 No [id number] 1{tbl} Take 1 tablet by mouth daily. [facility] docusate calcium 240 mg capsule 2018-04 00:00: 00 05-23 00:00 :00 No [id number] 240mg Take 1 capsule by mouth once daily as needed for Constipati on. [facility] ferrous sulfate 325 mg (65 mg iron) tablet 2018-04 00:00: 00 05-23 00:00 :00 No [id number] 325mg Take 1 tablet by mouth 2 (two) times daily. [facility] ibuprofen 600 mg tablet 2018-04 00:00: 00 05-23 00:00 :00 No [id number] 600mg Take 1 tablet by mouth every 6 (six) hours as needed (Pain). Take with food or milk. [facility] Immunizations Ordered Immunization Name Filled Immunization Name Date Status Comments Source TDAP (ADACEL) VACCINE 2019-03-10 00:00:00 Completed [facility] TDAP (ADACEL) VACCINE 2019-03-10 00:00:00 Completed [facility] TDAP (ADACEL) VACCINE 2019-03-10 00:00:00 Completed [facility] TDAP (ADACEL) VACCINE 2019-03-10 00:00:00 Completed [facility] TDAP (ADACEL) VACCINE 2019-03-10 00:00:00 Completed [facility] TDAP (ADACEL) VACCINE 2019-03-10 00:00:00 Completed [facility] TDAP (ADACEL) VACCINE 2019-03-10 00:00:00 Completed [facility] TDAP (ADACEL) VACCINE 2019-03-10 00:00:00 Completed [facility] TDAP (ADACEL) VACCINE 2019-03-10 00:00:00 Completed [facility] TDAP (ADACEL) VACCINE 2019-03-10 00:00:00 Completed [facility] TDAP (ADACEL) VACCINE 2019-03-10 00:00:00 Completed [facility] TDAP (ADACEL) VACCINE 2019-03-10 00:00:00 Completed [facility] TDAP (ADACEL) VACCINE 2019-03-10 00:00:00 Completed [facility] TDAP (ADACEL) VACCINE 2019-03-10 00:00:00 Completed [facility] TDAP (ADACEL) VACCINE 2019-03-10 00:00:00 Completed [facility] Tdap Tdap 2019-03-10 00:00:00 Completed Azam Raphael MMR 2012-11-22 00:00:00 Completed [facility] MMR 2012-11-22 00:00:00 Completed [facility] MMR 2012-11-22 00:00:00 Completed [facility] MMR 2012-11-22 00:00:00 Completed [facility] MMR 2012-11-22 00:00:00 Completed [facility] MMR 2012-11-22 00:00:00 Completed [facility] MMR 2012-11-22 00:00:00 Completed [facility] MMR 2012-11-22 00:00:00 Completed [facility] MMR 2012-11-22 00:00:00 Completed [facility] MMR 2012-11-22 00:00:00 Completed [facility] MMR 2012-11-22 00:00:00 Completed [facility] MMR 2012-11-22 00:00:00 Completed [facility] MMR 2012-11-22 00:00:00 Completed [facility] MMR 2012-11-22 00:00:00 Completed [facility] MMR 2012-11-22 00:00:00 Completed [facility] Hep B, adult Hep B, adult 2012-11-22 00:00:00 Completed Azam Raphael MMR MMR 2012-11-22 00:00:00 Completed Azam Raphael HEPATITIS A 2012-10-19 00:00:00 Completed [facility] MMR 2012-10-19 00:00:00 Completed [facility] HEPATITIS A 2012-10-19 00:00:00 Completed [facility] MMR 2012-10-19 00:00:00 Completed [facility] HEPATITIS A 2012-10-19 00:00:00 Completed [facility] MMR 2012-10-19 00:00:00 Completed [facility] HEPATITIS A 2012-10-19 00:00:00 Completed [facility] MMR 2012-10-19 00:00:00 Completed [facility] [facility] HEPATITIS A 2012-10-19 00:00:00 Completed [facility] MMR 2012-10-19 00:00:00 Completed [facility] HEPATITIS A 2012-10-19 00:00:00 Completed [facility] MMR 2012-10-19 00:00:00 Completed [facility] HEPATITIS A 2012-10-19 00:00:00 Completed [facility] MMR 2012-10-19 00:00:00 Completed [facility] HEPATITIS A 2012-10-19 00:00:00 Completed [facility] MMR 2012-10-19 00:00:00 Completed [facility] HEPATITIS A 2012-10-19 00:00:00 Completed [facility] MMR 2012-10-19 00:00:00 Completed [facility] HEPATITIS A 2012-10-19 00:00:00 Completed [facility] MMR 2012-10-19 00:00:00 Completed [facility] HEPATITIS A 2012-10-19 00:00:00 Completed [facility] MMR 2012-10-19 00:00:00 Completed [facility] HEPATITIS A 2012-10-19 00:00:00 Completed [facility] MMR 2012-10-19 00:00:00 Completed [facility] HEPATITIS A 2012-10-19 00:00:00 Completed [facility] MMR 2012-10-19 00:00:00 Completed [facility] HEPATITIS A 2012-10-19 00:00:00 Completed [facility] MMR 2012-10-19 00:00:00 Completed [facility] HEPATITIS A 2012-10-19 00:00:00 Completed [facility] MMR 2012-10-19 00:00:00 Completed [facility] Hep A, adult Hep A, adult 2012-10-19 00:00:00 Completed Azam Rapheal Hep B, adult Hep B, adult 2012-10-19 00:00:00 Completed Azam Raphael Tdap Tdap 2012-10-19 00:00:00 Completed Azam Raphael MMR MMR 2012-10-19 00:00:00 Completed Azam Raphael TDAP (ADACEL) VACCINE Unknown Completed [facility] HEPATITIS A Unknown Completed [facility] [place] [place] MMR Unknown Completed [facility] MMR Unknown Completed [facility] TDAP (ADACEL) VACCINE Unknown Completed [facility] HEPATITIS A Unknown Completed [facility] MMR Unknown Completed [facility] MMR Unknown Completed [facility] TDAP (ADACEL) VACCINE Unknown Completed [facility] HEPATITIS A Unknown Completed [facility] [place] [place] MMR Unknown Completed [facility] MMR Unknown Completed [facility] TDAP (ADACEL) VACCINE Unknown Completed [facility] HEPATITIS A Unknown Completed [facility] MMR Unknown Completed [facility] MMR Unknown Completed [facility] TDAP (ADACEL) VACCINE Unknown Completed [facility] HEPATITIS A Unknown Completed [facility] [place] [place] MMR Unknown Completed [facility] MMR Unknown Completed [facility] TDAP (ADACEL) VACCINE Unknown Completed [facility] HEPATITIS A Unknown Completed [facility] MMR Unknown Completed [facility] MMR Unknown Completed [facility] TDAP (ADACEL) VACCINE Unknown Completed [facility] HEPATITIS A Unknown Completed [facility] [place] [place] MMR Unknown Completed [facility] MMR Unknown Completed [facility] TDAP (ADACEL) VACCINE Unknown Completed [facility] HEPATITIS A Unknown Completed [facility] MMR Unknown Completed [facility] MMR Unknown Completed [facility] TDAP (ADACEL) VACCINE Unknown Completed [facility] HEPATITIS A Unknown Completed [facility] MMR Unknown Completed [facility] MMR Unknown Completed [facility] TDAP Unknown Completed [facility] Vital Signs Vital Name Observation Time Observation Value Comments S ource Heart rate 2023-08-20 05:00:00 100 /min [facility] Respiratory rate 2023-08-20 05:00:00 20 /min [facility] Oxygen saturation in Arterial blood by Pulse oximetry 2023-08-20 05:00:00 99 /min [facility] Systolic blood pressure 2023-08-20 04:10:00 133 mm[Hg] [facility] Diastolic blood pressure 2023-08-20 04:10:00 102 mm[Hg] [facility] Body height 2023-08-20 04:10:00 165.1 cm [facility] Body weight 2023-08-20 04:10:00 44.453 kg [facility] BMI 2023-08-20 04:10:00 16.31 kg/m2 [facility] Systolic blood pressure 2023-03-03 08:53:00 113 mm[Hg] [facility] Diastolic blood pressure 2023-03-03 08:53:00 91 mm[Hg] [facility] Heart rate 2023-03-03 08:53:00 93 /min [facility] Body temperature 2023-03-03 08:53:00 37.11 Diya [facility] Respiratory rate 2023-03-03 08:53:00 20 /min [facility] Body height 2023-03-03 08:53:00 165.1 cm [facility] Body weight 2023-03-03 08:53:00 45.36 kg [facility] BMI 2023-03-03 08:53:00 16.64 kg/m2 [facility] Oxygen saturation in Arterial blood by Pulse oximetry 2023-03-03 08:53:00 100 /min [facility] Systolic blood pressure 2022-04-30 20:12:00 148 mm[Hg] pt on the phone [facility] Diastolic blood pressure 2022-04-30 20:12:00 103 mm[Hg] pt on the phone [facility] Heart rate 2022-04-30 20:12:00 108 /min [facility] Systolic blood pressure 2021-09-23 23:07:54 117 mm[Hg] [facility] Diastolic blood pressure 2021-09-23 23:07:54 80 mm[Hg] [facility] Heart rate 2021-09-23 23:07:54 78 /min [facility] Respiratory rate 2021-09-23 23:07:54 18 /min [facility] Oxygen saturation in Arterial blood by Pulse oximetry 2021-09-23 23:07:54 98 /min [facility] Body temperature 2021-09-23 18:10:00 36.94 Diya [facility] Body height 2021-09-23 18:10:00 165.1 cm [facility] Body weight 2021-09-23 18:10:00 49.896 kg [facility] BMI 2021-09-23 18:10:00 18.30 kg/m2 [facility] BP Systolic 2023-08-19 15:48:00 120 mm[Hg] Azam Raphael BP Diastolic 2023-08-19 15:48:00 79 mm[Hg] Azam Raphael Weight Measured 2023-08-19 15:48:00 99.00 pounds Azam Raphael Height Measured 2023-08-19 15:48:00 65.00 inches Azam Raphael Body Temperature 2023-08-19 15:48:00 98.10 degrees Azam F Donavon Heart Rate 2023-08-19 15:48:00 100.00 /min Azam F Donavon Respiratory Rate 2023-08-19 15:48:00 19.00 /min Azam F Donavon BP Systolic 2023-08-14 10:24:00 123 mm[Hg] Azam F Donavon BP Diastolic 2023-08-14 10:24:00 90 mm[Hg] Azam F Donavon Weight Measured 2023-08-14 10:24:00 98.80 pounds Azam F Donavon Height Measured 2023-08-14 10:24:00 65.00 inches Azam F Donavon Body Temperature 2023-08-14 10:24:00 98.20 degrees Azam F Donavon Heart Rate 2023-08-14 10:24:00 88.00 /min Azam F Donavon Respiratory Rate 2023-08-14 10:24:00 Azam F Donavon BP Systolic 2023-06-18 16:37:00 Azam F Donavon BP Diastolic 2023-06-18 16:37:00 Azam F Donavon Weight Measured 2023-06-18 16:37:00 Azam F Donavon Height Measured 2023-06-18 16:37:00 Azam F Donavon Body Temperature 2023-06-18 16:37:00 Azam F Donavon Heart Rate 2023-06-18 16:37:00 Azam F Donavon Respiratory Rate 2023-06-18 16:37:00 Azam F Donavon BP Systolic 2023-04-21 14:01:00 131 mm[Hg] Azam F Donavon BP Diastolic 2023-04-21 14:01:00 92 mm[Hg] Azam F Donavon Weight Measured 2023-04-21 14:01:00 100.00 pounds Azam F Donavon Height Measured 2023-04-21 14:01:00 65.00 inches Azam F Donavon Body Temperature 2023-04-21 14:01:00 98.40 degrees Azam F Donavon Heart Rate 2023-04-21 14:01:00 102.00 /min Azam F Donavon Respiratory Rate 2023-04-21 14:01:00 19.00 /min Azam F Donavon BP Systolic 2023-01-07 13:17:00 136 mm[Hg] Azam F Donavon BP Diastolic 2023-01-07 13:17:00 97 mm[Hg] Azam F Donavon Weight Measured 2023-01-07 13:17:00 99.00 pounds Azam F Donavon Height Measured 2023-01-07 13:17:00 65.00 inches Azam F Donavon Body Temperature 2023-01-07 13:17:00 97.50 degrees Azam F Donavon Heart Rate 2023-01-07 13:17:00 93.00 /min Azam F Donavon Respiratory Rate 2023-01-07 13:17:00 25.00 /min Azam F Donavon BP Systolic 2022-11-17 13:06:00 Azam F Donavon BP Diastolic 2022-11-17 13:06:00 Azam F Donavon Weight Measured 2022-11-17 13:06:00 104.60 pounds Azam F Donavon Height Measured 2022-11-17 13:06:00 65.00 inches Azam F Donavon Body Temperature 2022-11-17 13:06:00 97.30 degrees Azam F Donavon Heart Rate 2022-11-17 13:06:00 80.00 /min Azam F Donavon Respiratory Rate 2022-11-17 13:06:00 Azam F Donavon BP Systolic 2022-07-08 14:33:00 136 mm[Hg] Azam F Donavon BP Diastolic 2022-07-08 14:33:00 90 mm[Hg] Azam F Donavon Weight Measured 2022-07-08 14:33:00 104.80 pounds Azam F Donavon Height Measured 2022-07-08 14:33:00 65.00 inches Azam F Donavon Body Temperature 2022-07-08 14:33:00 97.90 degrees Azam F Donavon Heart Rate 2022-07-08 14:33:00 75.00 /min Azam F Donavon Respiratory Rate 2022-07-08 14:33:00 Azam F Donavon BP Systolic 2022-04-25 10:09:00 131 mm[Hg] Azam F Donavon BP Diastolic 2022-04-25 10:09:00 84 mm[Hg] Azam F Donavon Weight Measured 2022-04-25 10:09:00 109.60 pounds Azam F Donavon Height Measured 2022-04-25 10:09:00 65.00 inches Azam F Donavon Body Temperature 2022-04-25 10:09:00 99.00 degrees Azam F Donavon Heart Rate 2022-04-25 10:09:00 91.00 /min Azam F Donavon Respiratory Rate 2022-04-25 10:09:00 18.00 /min Azam F Donavon BP Systolic 2022-03-05 09:57:00 Azam F Donavon BP Diastolic 2022-03-05 09:57:00 Azma F Donavon Weight Measured 2022-03-05 09:57:00 Zaam F Donavon Height Measured 2022-03-05 09:57:00 Azam F Donavon Body Temperature 2022-03-05 09:57:00 Azam F Donavon Heart Rate 2022-03-05 09:57:00 Azam F Donavon Respiratory Rate 2022-03-05 09:57:00 Azam F Donavon BP Systolic 2022-02-13 14:00:00 119 mm[Hg] Azam F Donavon BP Diastolic 2022-02-13 14:00:00 84 mm[Hg] Azam F Donavon Weight Measured 2022-02-13 14:00:00 121.60 pounds Azam F Donavon Height Measured 2022-02-13 14:00:00 65.00 inches Azam F Donavon Body Temperature 2022-02-13 14:00:00 97.80 degrees Azam F Donavon Heart Rate 2022-02-13 14:00:00 81.00 /min Azam F Donavon Respiratory Rate 2022-02-13 14:00:00 Azam F Donavon BP Systolic 2021-10-30 14:47:00 121 mm[Hg] Azam F Donavon BP Diastolic 2021-10-30 14:47:00 84 mm[Hg] Azam F Donavon Weight Measured 2021-10-30 14:47:00 112.40 pounds Azam F Donavon Height Measured 2021-10-30 14:47:00 65.00 inches Azam F Donavon Body Temperature 2021-10-30 14:47:00 98.10 degrees Azam F Donavon Heart Rate 2021-10-30 14:47:00 86.00 /min Azam F Donavon Respiratory Rate 2021-10-30 14:47:00 Azam F Donavon BP Systolic 2021-10-18 13:35:00 BP Diastolic 2021-10-18 [...] Date / Time Performed Performing Clinician Source XR HAND 3+ VW RIGHT 2023-08-20 04:38:41 Renata Bowen [facility] POCT TEST 2023-08-20 04:37:00 Renata Bowen [facility] ETHANOL 2023-08-20 04:36:00 Laurie Bowen [facility] NOTICE OF PRIVACY PRACTICES 2023-03-03 08:39:15 Doctor Unassigned, [place] [facility] CONSENT/REFUSAL FOR DIAGNOSIS AND TREATMENT 2023-03-03 08:36:34 Doctor Unassigned, [place] [facility] EXTERNAL PROVIDER RECORDS 2022-07-01 06:01:00 Doctor Unassigned, [place] [facility] AUTHORIZATION FOR RELEASE OF PHI 2021-11-25 05:01:00 Doctor Unassigned, [place] [facility] REFERRAL- REQUEST/RESPONSE 2021-11-11 05:01:00 Doctor Unassigned, [place] [facility] US PELVIS COMPLETE WITH TRANSVAGINAL 2021-10-24 13:17:52 Requisition, Paper [facility] CT THORAX W CONTRAST 2021-10-24 13:08:26 Requisition, Paper [facility] CT THORAX WO CONTRAST 2021-10-24 13:08:08 Requisition, Paper [facility] US PELVIS COMPLETE WITH TRANSVAGINAL 2021-09-23 22:52:01 Timoteo Cisse [facility] CT ABDOMEN PELVIS W CONTRAST 2021-09-23 20:02:13 Timoteo Cisse [facility] COMP. METABOLIC PANEL (16693) 2021-09-23 19:12:00 Timoteo Cisse [facility] CBC WITH DIFF 2021-09-23 19:12:00 Timoteo Cisse [facility] POCT TEST 2021-09-23 18:47:00 Timoteo Cisse [facility] URINALYSIS 2021-09-23 18:41:00 Timoteo Cisse [facility] NOTICE OF PRIVACY PRACTICES 2021-09-23 17:59:15 Doctor Unassigned, [place] [facility] CONSENT/REFUSAL FOR DIAGNOSIS AND TREATMENT 2021-09-23 17:59:01 Doctor Unassigned, [place] [facility] [id number] Colposcopy Cervix Bx Cervix endocrv Curtg 2021-08-29 00:00:00 Azam Raphael Plan of Care Planned Activity Planned Date Details Comments Source Goal Plan of Care Note [code = 77102-1] Goal Plan of Care Note [code = 16335-8] Goal Plan of Care Note [code = 01036-8] Goal Plan of Care Note [code = 44202-1] Goal Plan of Care Note [code = 68840-2] Goal Plan of Care Note [code = 48766-3] Goal Plan of Care Note [code = 89819-4] Goal Plan of Care Note [code = 80171-1] Goal Plan of Care Note [code = 64943-5] Goal Plan of Care Note [code = 26523-3] Goal Plan of Care Note [code = 79507-2] Goal Plan of Care Note [code = 64726-0] Goal Plan of Care Note [code = 80815-8] Goal Plan of Care Note [code = 89022-6] Goal Plan of Care Note [code = 96891-7] Goal Plan of Care Note [code = 40734-2] Goal Plan of Care Note [code = 14654-4] Goal Plan of Care Note [code = 38335-1] Goal Plan of Care Note [code = 77770-4] Goal Plan of Care Note [code = 37835-6] Goal Plan of Care Note [code = 14479-9] Goal Plan of Care Note [code = 57170-9] Goal Plan of Care Note [code = 53272-0] Goal Plan of Care Note [code = 78967-9] Goal Plan of Care Note [code = 71692-9] Goal Plan of Care Note [code = 00637-5] Goal Plan of Care Note [code = 94815-0] Goal Plan of Care Note [code = 36589-8] Goal Plan of Care Note [code = 73677-3] Goal Plan of Care Note [code = 95397-4] Goal Plan of Care Note [code = 11668-7] Goal Plan of Care Note [code = 36895-4] Goal Plan of Care Note [code = 17578-2] Goal Plan of Care Note [code = 80321-8] Goal Plan of Care Note [code = 32307-7] Goal Plan of Care Note [code = 17403-6] Goal Plan of Care Note [code = 22522-6] Goal Plan of Care Note [code = 04310-2] Goal Plan of Care Note [code = 60331-2] Goal Plan of Care Note [code = 03695-0] Goal Plan of Care Note [code = 64536-2] Goal Plan of Care Note [code = 72820-4] Goal Plan of Care Note [code = 24891-9] Goal Plan of Care Note [code = 65704-6] Goal Plan of Care Note [code = 12481-8] Goal Plan of Care Note [code = 90576-6] Goal Plan of Care Note [code = 00171-3] Goal Plan of Care Note [code = 36437-1] Goal Plan of Care Note [code = 66745-1] Goal Plan of Care Note [code = 26330-8] Goal Plan of Care Note [code = 92133-1] Goal Plan of Care Note [code = 27308-8] Goal Plan of Care Note [code = 86614-7] Goal Plan of Care Note [code = 20043-2] Goal Plan of Care Note [code = 59816-6] Goal Plan of Care Note [code = 31287-2] Goal Plan of Care Note [code = 14313-7] Goal Plan of Care Note [code = 80091-4] Goal Plan of Care Note [code = 92869-4] Goal Plan of Care Note [code = 69815-9] Goal Plan of Care Note [code = 97613-5] Goal Plan of Care Note [code = 14813-7] Goal Plan of Care Note [code = 20934-9] Goal Plan of Care Note [code = 52325-9] Goal Plan of Care Note [code = 90964-9] Goal Plan of Care Note [code = 67855-9] Goal Plan of Care Note [code = 22765-6] Goal Plan of Care Note [code = 34466-9] Goal Plan of Care Note [code = 02118-4] Goal Plan of Care Note [code = 91220-1] Goal Plan of Care Note [code = 28747-3] Goal Plan of Care Note [code = 94926-5] Goal Plan of Care Note [code = 42234-1] Goal Plan of Care Note [code = 07135-2] Goal Plan of Care Note [code = 64427-4] Goal Plan of Care Note [code = 13935-5] Goal Plan of Care Note [code = 54587-7] Goal Plan of Care Note [code = 14842-5] Goal Plan of Care Note [code = 95523-0] Goal Plan of Care Note [code = 72120-5] Goal Plan of Care Note [code = 31157-5] Goal Plan of Care Note [code = 06313-2] Goal Plan of Care Note [code = 75327-2] Goal Plan of Care Note [code = 80987-2] Goal Plan of Care Note [code = 74788-6] Goal Plan of Care Note [code = 53190-1] Goal Plan of Care Note [code = 56993-3] Goal Plan of Care Note [code = 14665-8] Goal Plan of Care Note [code = 70849-1] Goal Plan of Care Note [code = 07130-9] Goal Plan of Care Note [code = 90584-2] Goal Plan of Care Note [code = 79292-8] Goal Plan of Care Note [code = 31587-1] Goal Plan of Care Note [code = 57274-5] Goal Plan of Care Note [code = 31255-1] Goal Plan of Care Note [code = 62613-7] Goal Plan of Care Note [code = 80745-5] Goal Plan of Care Note [code = 82451-3] Goal Plan of Care Note [code = 37605-8] Goal Plan of Care Note [code = 39856-2] Goal Plan of Care Note [code = 43077-7] Goal Plan of Care Note [code = 15741-7] Goal Plan of Care Note [code = 05878-5] Goal Plan of Care Note [code = 46245-7] Goal Plan of Care Note [code = 85124-4] Goal Plan of Care Note [code = 32252-3] Goal Plan of Care Note [code = 57712-4] Goal Plan of Care Note [code = 31160-6] Goal Plan of Care Note [code = 20154-9] Goal Plan of Care Note [code = 64948-8] Goal Plan of Care Note [code = 79737-5] Goal Plan of Care Note [code = 97455-7] Goal Plan of Care Note [code = 58766-0] Goal Plan of Care Note [code = 30715-6] Goal Plan of Care Note [code = 28749-6] Goal Plan of Care Note [code = 05754-9] Goal Plan of Care Note [code = 12042-6] Goal Plan of Care Note [code = 42156-6] Goal Plan of Care Note [code = 98217-5] Goal Plan of Care Note [code = 07846-8] Goal Plan of Care Note [code = 36904-5] Goal Plan of Care Note [code = 40373-1] Goal Plan of Care Note [code = 39800-5] Goal Plan of Care Note [code = 62630-0] Goal Plan of Care Note [code = 64751-3] Goal Plan of Care Note [code = 94515-3] Goal Plan of Care Note [code = 37218-4] Goal Plan of Care Note [code = 87312-6] Goal Plan of Care Note [code = 99554-8] Goal Plan of Care Note [code = 30565-3] Goal Plan of Care Note [code = 66934-7] Goal Plan of Care Note [code = 23680-2] Goal Plan of Care Note [code = 92818-3] Goal Plan of Care Note [code = 79343-4] Goal Plan of Care Note [code = 19563-4] Goal Plan of Care Note [code = 90030-7] Goal Plan of Care Note [code = 06844-4] Goal Plan of Care Note [code = 29961-8] Goal Plan of Care Note [code = 22107-8] Goal Plan of Care Note [code = 24789-4] Goal Plan of Care Note [code = 24372-7] Goal Plan of Care Note [code = 20039-3] Goal Plan of Care Note [code = 30513-0] Goal Plan of Care Note [code = 36197-2] Goal Plan of Care Note [code = 85807-8] Goal Plan of Care Note [code = 64994-1] Goal Plan of Care Note [code = 70944-4] Goal Plan of Care Note [code = 27385-2] Encounters Start Date/Time End Date/Time Encounter Type Admission Type Attending [facility] Care Facility Care Department Encounter ID Source 2021-02-23 16:17:01 Emergency [facility] [id number] [facility] 2021-02-22 13:07:11 Emergency X YANICK LYLE [facility] SPL [id number] [facility] 2023-08-26 15:32:57 2023-08-26 15:32:57 Outpatient [facility] [id number] Azam Raphael 2023-08-19 23:06:00 2023-08-20 01:04:00 Emergency X LAURIE BOWEN [facility] ERT [id number] [facility] 2023-08-19 23:06:00 2023-08-20 01:04:00 Emergency Azam Rooney Andres [facility] 1.2.840.114 350.1.13.10 [id number] [id number] [facility] 2023-08-14 10:21:08 2023-08-14 10:21:08 Outpatient [facility] [id number] Azam Vallejo Donavon 2023-08-14 00:00:00 2023-08-14 00:00:00 Outpatient Visit [facility] [id number] Azam Vallejo Donavon 2023-07-30 09:00:00 2023-07-30 09:00:00 Outpatient CHASITY SALVADOR [id number] [facility] 2023-07-16 18:15:00 2023-07-16 18:15:00 Outpatient DIANN PONCE [id number] [facility] 2023-07-16 17:55:00 2023-07-16 17:55:00 Outpatient PROVIDER, ELLIOT MCINTYRE [id number] Amy Jacinto 2023-06-25 10:15:00 2023-06-25 10:15:00 Outpatient NWEKE, MAYNOR MCINTYRE [id number] Amy lilian 2023-06-22 10:12:02 2023-06-22 10:12:02 Outpatient [facility] [id number] Azam Raphael 2023-06-18 16:35:48 2023-06-18 16:35:48 Outpatient [facility] [id number] Azam Raphael 2023-06-18 00:00:00 2023-06-18 00:00:00 Outpatient Visit [facility] [id number] Azam Raphael 2023-06-08 14:44:09 2023-06-08 14:44:09 Outpatient [facility] [id number] Azam Raphael 2023-06-04 10:48:04 2023-06-04 10:48:04 Outpatient [facility] [id number] Azam Raphael 2023-05-25 08:44:02 2023-05-25 08:44:02 Outpatient [facility] [id number] Azam Raphael 2023-04-21 13:55:33 2023-04-21 13:55:33 Outpatient [facility] [id number] Azam Raphael 2023-04-02 17:25:25 2023-04-02 17:25:25 Outpatient [facility] [id number] Azam Raphael 2023-03-03 02:58:00 2023-03-03 03:49:00 Emergency X GUILHERME WILDER [facility] ERT [id number] [facility] 2023-03-03 02:58:00 2023-03-03 03:49:00 Emergency Guilherme Wilder [facility] [id number] 350.1.13.10 4.2.7.2.686 [id number] [facility] 2023-01-07 13:16:59 2023-01-07 13:16:59 Outpatient [facility] S[facility] [id number] Azam Raphael 2022-12-03 19:26:04 2022-12-03 19:26:04 Outpatient [facility] [id number] Azam Raphael 2022-11-17 13:05:19 2022-11-17 13:05:19 Outpatient [facility] [id number] Azam Raphael 2022-11-10 10:41:21 2022-11-10 10:41:21 Outpatient [facility] S[facility] [id number] Azam Raphael 2022-11-08 14:16:42 2022-11-08 14:16:42 Outpatient SFA SFA [id number] Azam Raphael 2022-10-31 14:26:52 2022-10-31 14:26:52 Outpatient [facility] SFA [id number] Azam Raphael 2022-10-27 11:18:15 2022-10-27 11:18:15 Outpatient [facility] [id number] Azam Raphael 2022-10-24 15:42:10 2022-10-24 15:42:10 Outpatient [facility] [id number] Azam Raphael 2022-07-08 14:24:41 2022-07-08 14:24:41 Outpatient [facility] S[facility] [id number] Azam Raphael 2022-07-01 00:00:00 2022-07-01 00:00:00 Orders Only Doctor Unassigned, [place] [facility] 1.0114 350.1.13.10 4.2.7.2.686 [id number] [facility] 2022-05-07 00:00:00 2022-05-07 00:00:00 Telephone Cathie Subramanina [facility] 1.840.114 350.1.13.10 [id number] [id number] [facility] 2022-05-05 00:00:00 2022-05-05 00:00:00 Telephone Cathie Subramanian [facility] 1..840.114 350.1.13.10 4.2.7.2.686 [id number] [facility] 2022-05-01 16:00:00 2022-05-01 16:00:00 Outpatient Op[facility] [id number] [facility] 2022-04-30 14:30:00 2022-04-30 14:30:00 Office Visit Cathie Subramanian [facility] 1..[id number] [facility] 2022-04-30 14:30:00 2022-04-30 14:22:11 Outpatient R CATHIE SUBRAMANIAN [facility] [id number] [facility] 2022-04-29 14:00:00 2022-04-29 14:00:00 Outpatient RIVERA RIVERA [facility] [id number] [facility] 2022-04-29 00:00:00 2022-04-29 00:00:00 Telephone Rivera Pink [facility] 1..840.114 350.1.13.10 4.2.7.2.686 [id number] [facility] 2022-04-28 00:00:00 2022-04-28 00:00:00 Telephone Cathie Subramanian [facility] 1..840.114 350.1.13.10 4.2.7.2.686 [id number] [facility] 2022-04-25 10:00:19 2022-04-25 10:00:19 Outpatient [facility] [id number] Azam Raphael 2022-04-01 14:00:00 2022-04-01 14:00:00 Outpatient JESSE SHIELDS [facility] [id number] [facility] 2022-03-27 13:30:00 2022-03-27 13:30:00 Outpatient Opal DONG JESSE [facility] [id number] [facility] 2022-03-05 00:00:00 2022-03-05 00:00:00 Outpatient Visit [id number] 2022-02-14 09:30:00 2022-02-14 09:30:00 Outpatient ERICA MELENDEZ [facility] [id number] [facility] 2022-02-13 13:45:00 2022-02-13 13:45:00 Outpatient [facility] [id number] Azam Raphael 2022-02-13 00:00:00 2022-02-13 00:00:00 Outpatient Visit [id number] 2021-11-25 00:00:00 2021-11-25 00:00:00 Orders Only Doctor Unassigned, [place] [address]..840.114 350.1.13.10 4.2.7.2.686 [id number] [facility] 2021-11-11 00:00:00 2021-11-11 00:00:00 Orders Only Doctor Unassigned, [place] [id number] 350.1.13.10 4.2.7.2.686 [id number] [facility] 2021-10-30 00:00:00 2021-10-30 00:00:00 Outpatient Visit [id number] 2021-10-24 07:29:35 2021-10-24 23:59:00 Outpatient R RADIOLOGY [facility] [id number] [facility] 2021-10-24 07:29:35 2021-10-24 23:59:00 Hospital Encounter Radiology [facility] ([facility] 1.2.840.114 350.1.13.10 4.2.7.2.686 [id number] [facility] 2021-10-24 07:28:55 2021-10-24 07:28:55 Hospital Encounter Radiology [facility] ([facility]) 1.2.840.114 350.1.13.10 4.2.7.2.686 [id number] [facility] 2021-10-24 07:28:21 2021-10-24 07:28:21 Hospital Encounter Radiology [facility] ([facility]) 1.2.840.114 350.1.13.10 4.2.7.2.686 [id number] [facility] 2021-10-24 00:00:00 2021-10-24 00:00:00 Outpatient R RADIOLOGY [facility] [id number] [facility] 2021-09-24 00:00:00 2021-09-24 00:00:00 Patient Secure Msg Doctor Unassigned, [place] [facility] 1.2.840.114 350.1.13.10 4.2.7.2.686 [id number] [facility] 2021-09-23 13:12:00 2021-09-23 18:47:00 Emergency X TIMOTEO CISSE [facility] ERT [id number] [facility] 2021-09-23 13:12:00 2021-09-23 18:47:00 Emergency Timoteo Cisse [facility] 1.2.840.114 350.1.13.10 4.2.7.2.686 [id number] [facility] 2021-09-23 00:00:00 2021-09-23 00:00:00 Orders Only Doctor Unassigned, [place] [facility] 1.2840.114 350.1.13.10 4.2.7.2.686 [id number] [facility] 2021-01-07 00:00:00 2021-01-07 00:00:00 Patient Secure [facility] 1..840.114 350.1.13.10 4.2.7.2.686 [id number] [facility] 2021-01-03 15:45:00 2021-01-03 15:45:00 Outpatient [facility] [id number] [facility] 2020-08-09 00:00:00 2020-08-09 00:00:00 Outpatient Opal KAREN BURNETT [facility] [id number] [facility] 2020-06-18 10:00:00 2020-06-18 10:00:00 Outpatient R [facility] [id number] [facility] 2020-06-15 00:00:00 2020-06-15 00:00:00 Patient Secure [place]se [place] [facility] 1..840.114 350.1.13.10 4.2.7.2.686 [id number] [facility] 2020-05-23 14:45:00 2020-05-23 14:45:00 Outpatient Opal [facility] [id number] [facility] 2020-05-17 00:00:00 2020-05-17 00:00:00 Patient Secure Msg Doctor Unassigned, [place] [facility] 1.84.114 350.1.13.10 4.2.7.2.686 [id number] [facility] 2020-05-15 13:00:00 2020-05-15 13:00:00 Outpatient R [facility] [id number] [facility] 2020-05-11 13:30:00 2020-05-11 13:30:00 Outpatient R [facility] [id number] [facility] 2020-05-09 10:30:00 2020-05-09 10:30:00 Outpatient R KAREN BURNETT [facility] [id number] [facility] 2020-04-13 00:00:00 2020-04-13 00:00:00 Patient Secure Msg Doctor Unassigned, [place] [facility] 1.84.114 350.1.13.10 4.2.7.2.686 [id number] [facility] 2020-04-12 00:00:00 2020-04-12 00:00:00 Patient Secure Msg Doctor Unassigned, [place] [facility] 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 [facility] 1..114 350.1.13.10 4.2.7.2.686 [id number] [facility] 2020-04-11 00:00:00 2020-04-11 00:00:00 Patient Secure Msg Doctor Unassigned, [place] [facility] 1..114 350.1.13.10 4.2.7.2.686 [id number] [facility] 2020-04-04 09:45:00 2020-04-04 09:45:00 Outpatient R BRYN BRADLEY [facility] [id number] [facility] 2019-12-28 09:15:00 2019-12-28 09:15:00 Outpatient R YANICK LYLE [facility] [id number] [facility] 2019-12-28 05:38:00 2019-12-28 05:38:00 Outpatient FERGUSON_JO HN [facility] [id number] [facility] 2019-12-09 09:26:00 2019-12-09 09:26:00 Outpatient FERGUSON_JO HN [facility] [id number] [facility] 2019-08-04 13:30:00 2019-08-04 13:30:00 Outpatient R [facility] [id number] [facility] 2019-07-25 08:00:00 2019-07-25 08:00:00 Outpatient Opal Hauser [facility] [place] [id number] [facility] 2019-07-18 14:00:00 2019-07-18 14:00:00 Outpatient R [facility] [id number] [facility] 2019-07-18 10:00:00 2019-07-18 10:00:00 Outpatient R AMIRA Hauser [facility] [place] [id number] [facility] 2019-07-11 15:00:00 2019-07-11 15:00:00 Outpatient JESSE SHIELDS [facility] [id number] [facility] 2019-06-20 11:00:00 2019-06-20 11:00:00 Outpatient KAREN KEN [facility] [id number] [facility] 2019-05-10 08:56:42 2019-05-10 23:59:00 Outpatient CARL RIVERA [facility] [id number] [facility] 2019-04-28 14:00:00 2019-04-28 14:00:00 Outpatient AMNA BHANDARI [facility] [id number] [facility] 2019-04-18 15:00:00 2019-04-18 16:35:19 Outpatient RUSTAM RAVI [facility] [id number] [facility] 2019-04-14 15:30:00 2019-04-14 16:09:05 Outpatient P ISRAEL PEREZ SHANNON [facility] [id number] [facility] 2019-04-07 09:30:00 2019-04-07 14:57:02 Outpatient P LENNOX CABRERA [facility] [id number] [facility] 2019-01-27 15:00:00 2019-01-27 15:00:00 Outpatient P RUSTAM THRASHER [facility] [id number] [facility] 2019-01-26 14:30:00 2019-01-26 14:25:24 Outpatient P AZEB MORRISON [facility] [id number] [facility] 2018-12-30 10:00:00 2018-12-30 11:14:24 Outpatient P AMNA CLARK [facility] [id number] [facility] 2018-12-29 10:45:00 2018-12-29 10:45:00 Outpatient P NISH GLOVER [facility] [id number] [facility] Results Test Description Test Time Test Comments Results Resul t Comments Source XR HAND 3+ VW RIGHT 2023-08-20 05:21:49 Ordering physician: LAURIE BOWEN INDICATION: Right hand injury COMPARISON: None FINDINGS: 3 views of the right hand. No acute fracture or dislocation isappreciated. There is apparent bony remodeling of the fifth metacarpal,possi gregorio reflecting healed remote fracture. [facility] [id number] 00:00:00* Test Item Value Reference Range Interpretation Comme nts GLUCOSE (test code = 2217) 110 MG/DL BUN (test code = 2208) 17 MG/DL CREATININE (test code = 2214) 0.72 MG/DL eGFR (2020 CKD-EPI) (test code = 15209) 112 ML/MIN/1.73 CALC BUN/CREAT (test code = 2235) 24 RATIO SODIUM (test code = 2231) 137 MEQ/L POTASSIUM (test code = 2228) 4.2 MEQ/L CHLORIDE (test code = 2215) 100 MEQ/L CARBON DIOXIDE (test code = 2206) 21 MEQ/L CALCIUM (test code = 2209) 10.6 MG/DL PROTEIN, TOTAL (test code = 2229) 7.6 G/DL ALBUMIN (test code = 2201) 5.1 G/DL CALC GLOBULIN (test code = 2240) 2.5 G/DL CALC A/G RATIO (test code = 2234) 2.0 RATIO BILIRUBIN, TOTAL (test code = 2207) 0.3 MG/DL ALKALINE PHOSPHATASE (test code = 2204) 107 U/L AST (test code = 2218) 22 U/L ALT (test code = 2219) 15 U/L Azam RaphaelTSH REFLEX TO FREE [id number] 00:00:00* Test Item Value Reference Range Interpretation Comme nts TSH REFLEX TO FREE T4 (test code = 2834) 0.703 UIU/ML Azam Vallejo AustinHIV 1/2 4TH GEN, RFLX [id number] 00:00:00* Test Item Value Reference Range Interpretation Comme nts HIV 1/2 4TH GEN, RFLX CONF ( test code = 3514) NON-REACTIVE Azam Vallejo AustinRPR REFLEX TO T. PALLIDUM - [id number] 00:00:00* Test Item Value Reference Range Interpretation Comme nts RPR (test code = 55080) NON-REACTIVE RPR TITER (test code = 3500) NOT INDIC. TITER Azam Vallejo DonavonHEPATITIS PROFILE (A,B,C)2023-08-15 00:00:00* Test Item Value Reference Range Interpretation Comme nts HEPATITIS A TOTAL AB (test c ode = 2725) REACTIVE HEPATITIS B SURF AG (test co de = 2739) NON-REACTIVE HEP B CORE TOTAL AB (test co de = 2729) NON-REACTIVE HEPATITIS B SURFACE AB (test code = 2737) REACTIVE HEPATITIS C ANTIBODY (test c ode = 1056) NON-REACTIVE INTERPRETATION HEPATITIS A: (test code = 2552) (NOTE) INTERPRETATION HEPATITIS B: (test code = 92624) (NOTE) INTERPRETATION HEPATITIS C: (test code = 27409) (NOTE) Azam Vallejo AustinHEPATITIS A IgM [REFLEX]2023-08-15 00:00:00* Test Item Value Reference Range Interpretation Comme nts HEPATITIS A IgM (test code = 2728) NON-REACTIVE Azam RaphaelLIPID [id number] 00:00:00* Test Item Value Reference Range Interpretation Comme nts CHOLESTEROL (test code = 2210) 184 MG/DL TRIGLYCERIDES (test code = 2232) 69 MG/DL HDL CHOLESTEROL (test code = 2220) 67 MG/DL CALC LDL CHOL (test code = 2237) 101 MG/DL RISK RATIO LDL/HDL (test cod e = 2238) 1.51 RATIO Azam RaphaelCBC W/AUTO [id number] 00:00:00* Test Item Value Reference Range Interpretation Comme nts WBC (test code = 1001) 10.2 K/UL RBC (test code = 1002) 4.58 M/UL HEMOGLOBIN (test code = 1003) 15.3 G/DL HEMATOCRIT (test code = 1004) 43.7 % MCV (test code = 1005) 95.4 fL MCH (test code = 1006) 33.4 PG MCHC (test code = 1007) 35.0 G/DL RDW (test code = 1038) 11.7 % NEUTROPHILS (test code = 1008) 66.5 % LYMPHOCYTES (test code = 1010) 23.9 % MONOCYTES (test code = 1011) 5.7 % EOSINOPHILS (test code = 1012) 2.6 % BASOPHILS (test code = 1013) 1.1 % IMMATURE GRANULOCYTES (test code = 1036) 0.2 % NUCLEATED RBCS (test code = 1065) 0.0 /100WBC'S PLATELET COUNT (test code = 1015) 265 K/UL ABSOLUTE NEUTROPHILS (test c ode = 1066) 6.81 K/UL ABSOLUTE LYMPHOCYTES (test c ode = 1067) 2.44 K/UL ABSOLUTE MONOCYTES (test cod e = 1068) 0.58 K/UL ABSOLUTE EOSINOPHILS (test c ode = 1040) 0.27 K/UL ABSOLUTE BASOPHILS (test cod e = 1069) 0.11 K/UL ABS IMMATURE GRANULOCYTES (t est code = 1020) 0.02 K/UL ABS NUCLEATED RBCS (test cod e = 75909) 0.00 K/UL Azam RaphaelCOMPREHENSIVE METABOLIC [id number] 00:00:00* Test Item Value Reference Range Interpretation Comme nts GLUCOSE (test code = 2217) 110 MG/DL BUN (test code = 2208) 17 MG/DL CREATININE (test code = 2214) 0.72 MG/DL eGFR (2020 CKD-EPI) (test code = 22606) 112 ML/MIN/1.73 CALC BUN/CREAT (test code = 2235) 24 RATIO SODIUM (test code = 223) 137 MEQ/L POTASSIUM (test code = 2228) 4.2 MEQ/L CHLORIDE (test code = 2215) 100 MEQ/L CARBON DIOXIDE (test code = 2206) 21 MEQ/L CALCIUM (test code = 2209) 10.6 MG/DL PROTEIN, TOTAL (test code = 222) 7.6 G/DL ALBUMIN (test code = 2201) 5.1 G/DL CALC GLOBULIN (test code = 2240) 2.5 G/DL CALC A/G RATIO (test code = 2234) 2.0 RATIO BILIRUBIN, TOTAL (test code = 7) 0.3 MG/DL ALKALINE PHOSPHATASE (test code = 220) 107 U/L AST (test code = 221) 22 U/L ALT (test code = 2219) 15 U/L Azam RaphaelTSH REFLEX TO FREE [id number] 00:00:00* Test Item Value Reference Range Interpretation Comme nts TSH REFLEX TO FREE T4 (test code = 2834) 0.703 UIU/ML Azam Vallejo AustinHIV 1/2 4TH GEN, RFLX [id number] 00:00:00* Test Item Value Reference Range Interpretation Comme nts HIV 1/2 4TH GEN, RFLX CONF ( test code = 3514) NON-REACTIVE Azam Vallejo DonavonRPR REFLEX TO T. PALLIDUM - [id number] 00:00:00* Test Item Value Reference Range Interpretation Comme nts RPR (test code = 07724) NON-REACTIVE RPR TITER (test code = 3500) NOT INDIC. TITER Azam Vallejo DonavonHEPATITIS PROFILE (A,B,C)2023-08-15 00:00:00* Test Item Value Reference Range Interpretation [...] (NOTE) INTERPRETATION HEPATITIS B: (test code = 51878) (NOTE) INTERPRETATION HEPATITIS C: (test code = 22770) (NOTE) Azam RaphaelHEPATITIS A IgM [REFLEX]2023-08-15 00:00:00* Test Item Value Reference Range Interpretation Comme nts HEPATITIS A IgM (test code = 2728) NON-REACTIVE Azam RaphaelLIPID [id number] 00:00:00* Test Item Value Reference Range Interpretation Comme nts CHOLESTEROL (test code = 2210) 184 MG/DL TRIGLYCERIDES (test code = 2232) 69 MG/DL HDL CHOLESTEROL (test code = 2220) 67 MG/DL CALC LDL CHOL (test code = 2237) 101 MG/DL RISK RATIO LDL/HDL (test cod e = 2238) 1.51 RATIO Azam RaphaelCBC W/AUTO [id number] 00:00:00* Test Item Value Reference Range Interpretation Comme nts WBC (test code = 1001) 10.2 K/UL RBC (test code = 1002) 4.58 M/UL HEMOGLOBIN (test code = 1003) 15.3 G/DL HEMATOCRIT (test code = 1004) 43.7 % MCV (test code = 1005) 95.4 fL MCH (test code = 1006) 33.4 PG MCHC (test code = 1007) 35.0 G/DL RDW (test code = 1038) 11.7 % NEUTROPHILS (test code = 1008) 66.5 % LYMPHOCYTES (test code = 1010) 23.9 % MONOCYTES (test code = 1011) 5.7 % EOSINOPHILS (test code = 1012) 2.6 % BASOPHILS (test code = 1013) 1.1 % IMMATURE GRANULOCYTES (test code = 1036) 0.2 % NUCLEATED RBCS (test code = 1065) 0.0 /100WBC'S PLATELET COUNT (test code = 1015) 265 K/UL ABSOLUTE NEUTROPHILS (test c ode = 1066) 6.81 K/UL ABSOLUTE LYMPHOCYTES (test c ode = 1067) 2.44 K/UL ABSOLUTE MONOCYTES (test cod e = 1068) 0.58 K/UL ABSOLUTE EOSINOPHILS (test c ode = 1040) 0.27 K/UL ABSOLUTE BASOPHILS (test cod e = 1069) 0.11 K/UL ABS IMMATURE GRANULOCYTES (t est code = 1020) 0.02 K/UL ABS NUCLEATED RBCS (test cod e = 59091) 0.00 K/UL Azam PuentePES SIMPLEX AB, [id number] 20:04:09* Test Item Value Reference Range Interpretation Comme nts HERPES SIMPLEX AB, IgM (test code = 16336) 1.03 INDEX SEE BELOW H FOR EQUIVOCAL HS V IgM, CONSIDER RECOLLECTION AND RETESTING IgM IN 10-14 DAYS. CORRELATE WITH HSV IgG TESTING AND CLINICAL HISTORY TO ASSIST WITH INTERPRETATION. IMPORTANT NOTE: HSV IgM ASSAYS ARE NOT TYPE-SPECIFIC. THE BIOLOGICALIgM RESPONSE WITH PRIMARY INFECTIONS IS VARIABLE AND MAY BEUNDETECTABLE; WITH RECURRENT INFECTIONS IgM MAY OR MAY NOT BEDETECTED. FALSE POSITIVE RESULTS UNRELATED TO HSV INFECTION CAN OCCURWITH HSV IgM ASSAYS. ALL RESULTS SHOULD BE REVIEWED IN CLINICALCONTEXT, AND COMPARISON TO ACUTE OR CONVALESCENT TYPE-SPECIFIC QMU2OZA HSV2 IgG ASSAYS SHOULD BE CONSIDERED. INTERPRETATION UNITS RANGE ----- ----- NEGATIVE INDEX <=0.89 EQUIVOCAL INDEX 0.90-1.09 POSITIVE INDEX >=1.10 PAP TEST, THINPREP, [id number] 14:19:03* Test Item Value Reference Range Interpretation Comme [facility] SOURCE: (test code = 8001) Cervical/Endo cervical SLIDES: (test code = 8011) 1 LMP: (test code = 8021) 12/26/2022 SPECIMEN ADEQUACY: (test code = 78427) (NOTE) Satisfactory for evaluation. Endocervical cells/transformation zone component not identified. INTERPRETATION: (test code = 99170) NILM/NO EPITH. ABNORMALITY;S EE BELOW ---- NEGATIVE FOR INTRAEPITHELIAL LESION OR MALIGNANCY (NILM) - OTHER COMMENTS: (test code = 8081) (NOTE) Shift in hallie suggestive of bacterial vaginosis. BUSINESS DEVELOPMENT EXECUTIVE: (test code = 8101) [place]AYLIE [place] (ASCP) LOCATION: (test code = 44130) (NOTE) Specimens proces sed and interpreted at [facility], [address] [place] [address], , CLIA: [id number] CPT: (test code = 8140) (NOTE) 75430 UNLESS OTH ERWISE INDICATED, COMPUTER AIDED AND BUSINESS DEVELOPMENT EXECUTIVE SCREENING PERFORMED. The Pap test is a screening test with an inherent, but low probability of error. Your patient should be reminded to consult you immediately if she experiences any suspicious signs or symptoms, regardless of her Pap test result. An alternate report format containing images or consolidated prior Pap history is available as applicable. HPV HIGH RISK WITH GENOTYPE, [id number] 14:13:14* Test Item Value Reference Range Interpretation Comme nts HPV HIGH RISK INTERP (test code = 82796) NEGATIVE NEGATIVE HPV 16 (test code = 25660) NEGATIVE HPV 18 (test code = 59603) NEGATIVE HPV, HR, OTHER GENOTYPES (test code = 11443) NEGATIVE Testing methodol ogy is real-time PCR [...] TESTING PERFORMED AT [facility] [address] [place] [address] ELECTRICAL ENGINEER MEP: CYNDEE MCPHERSON M.D. CLIA NUMBER [id number] [facility] [place]. [id number] VAGINAL PATHOGENS DNA [id number] 13:04:06* Test Item Value Reference Range Interpretation Comme nts DWIGHT SPECIES (test code = 30222) NEGATIVE NEGATIVE G. VAGINALIS (test code = 74880) POSITIVE NEGATIVE A T. VAGINALIS (test code = 94035) NEGATIVE NEGATIVE Note: The [facility] VPIII Microbial Identification Testis a DNA probe test intended for use in the detectionand identification of Dwight species, Gardnerellavaginalis and Trichomonas vaginalis nucleic acid. CT/NG, NAAT, [id number] 11:41:28* Test Item Value Reference Range Interpretation Comme nts CHLAMYDIA, NAAT, THINPREP (test code = 88214) NEGATIVE NEGATIVE A negative resul t does not exclude low level infection, specimensampling error, or collection error. Testing is performed with the Kaiden Jenniffer 6800/8800 systems usingreal-time Polymerase Chain Reaction (PCR) method. GONORRHEA, NAAT, THINPREP (test code = 60025) NEGATIVE NEGATIVE A negative resul t does not exclude low level infection, specimensampling error, or collection error. Testing is performed with the Kaiden Jenniffer 6800/8800 systems usingreal-time Polymerase Chain Reaction (PCR) method. [id number] 05:38:12* Test Item Value Reference Range Interpretation Comme nts RPR RESULT (test code = 3501) NON-REACTIVE NON-REACTIVE RPR TITER (test code = 3500) NOT INDIC. TITER NOT INDIC. HIV 1/2 4TH GEN, RFLX [id number] 04:19:13* Test Item Value Reference Range Interpretation Comme [facility] HIV 1/2 4TH GEN, RFLX CONF ( test code = 3514) NON-REACTIVE NON-REACTIVE HEPATITIS PANEL, [id number] 04:19:13* Test Item Value Reference Range Interpretation Comme nts HEPATITIS A IgM (test code = 07753) NON-REACTIVE NON-REACTIVE HEPATITIS B CORE IgM (test code = 4644) NON-REACTIVE NON-REACTIVE HEPATITIS B SURF AG (test code = 2739) NON-REACTIVE NON-REACTIVE HEPATITIS C ANTIBODY (test code = 4675) NON-REACTIVE NON-REACTIVE INTERPRETATION HEPATITIS A: (test code = 2552) (NOTE) Hepatitis A serology shows no evidence of acute hepatitis A. INTERPRETATION HEPATITIS B: (test code = 99403) (NOTE) Hepatitis B serology shows no evidence of acute hepatitis B andno indication of exposure to hepatitis B virus in the previous kiko eight months. INTERPRETATION HEPATITIS C: (test code = 59662) (NOTE) Hepatitis C serology shows no evidence of exposure to hepatitisC virus at this time. It can take up to 12 months after exposure tothe hepatitis C virus for antibodies to become detectable in the blood in certain patients. HERPES SIMPLEX 1/2 AB, IgG [id number] 04:19:13* Test Item Value Reference Range Interpretation Comme nts HERPES SIMPLEX 1 AB, IgG (test code = 82183) 11.900 INDEX SEE BELOW H INTERPRETATION UNITS RANGE ----- ----- NON-REACTIVE INDEX <1.000 REACTIVE INDEX >=1.000 HERPES SIMPLEX 2 AB, IgG (test code = 71214) 21.200 INDEX SEE BELOW H INTERPRETATION U NITS RANGE ----- ----- NON-REACTIVE INDEX <1.000 REACTIVE INDEX >=1.000 UNLESS OTHERWISE INDICATED, ALL TESTING PERFORMED AT [facility] [address] [place] [address] ELECTRICAL ENGINEER MEP: CYNDEE MCPHERSON M.D. [place] NUMBER [id number] [facility] [place]. [id number] ACUTE HEPATITIS [id number] 00:00:00* Test Item Value Reference Range Interpretation Comme nts HEPATITIS A IgM (test code = 47525) NON-REACTIVE HEPATITIS B CORE IgM (test c ode = 4644) NON-REACTIVE HEPATITIS B SURF AG (test co de = 2739) NON-REACTIVE HEPATITIS C ANTIBODY (test c ode = 4675) NON-REACTIVE INTERPRETATION HEPATITIS A: (test code = 2552) (NOTE) INTERPRETATION HEPATITIS B: (test code = 88680) (NOTE) INTERPRETATION HEPATITIS C: (test code = 70319) (NOTE) Azam RaphaelHERPES SIMPLEX [id number] 00:00:00* Test Item Value Reference Range Interpretation Comme nts HERPES SIMPLEX AB, IgM (test code = 05546) 1.03 INDEX Azam RaphaelHERPES SIMPLEX 1/2 [id number] 00:00:00* Test Item Value Reference Range Interpretation Comme nts HERPES SIMPLEX 1 AB, IgG (te st code = 89140) 11.900 INDEX HERPES SIMPLEX 2 AB, IgG (te st code = 98016) 21.200 INDEX Azam RaphaelHIV 1/2 4TH GEN, RFLX [id number] 00:00:00* Test Item Value Reference Range Interpretation Comme nts HIV 1/2 4TH GEN, RFLX CONF ( test code = 3514) NON-REACTIVE Azam RaphaelGC AND CHLAMYDIA AMPLIFIED, [id number] 00:00:00* Test Item Value Reference Range Interpretation Comme nts CHLAMYDIA, NAAT, THINPREP (t est code = 48206) NEGATIVE GONORRHEA, NAAT, THINPREP (t est code = 91954) NEGATIVE Azam RaphaelPAP TEST, THINPREP, [id number] 00:00:00* Test Item Value Reference Range Interpretation Comme nts SOURCE: (test code = 8001) Cervical/Endocervical SLIDES: (test code = 8011) 1 LMP: (test code = 8021) 12/26/2022 SPECIMEN ADEQUACY: (test code = 35418) (NOTE) INTERPRETATION: (test code = 51599) NILM/NO EPITH. ABNORMALITY;SEE BELOW OTHER COMMENTS: (test code = 8081) (NOTE) BUSINESS DEVELOPMENT EXECUTIVE: (test code = 8101) HAYLIE [place] (ASCP) LOCATION: (test code = 50682) (NOTE) CPT: (test code = 8140) (NOTE) Azam RaphaelVAGINAL PATHOGENS DNA [id number] 00:00:00* Test Item Value Reference Range Interpretation Comme nts DWIGHT SPECIES (test code = 91367) NEGATIVE G. VAGINALIS (test code = 51032) POSITIVE T. VAGINALIS (test code = 61776) NEGATIVE Azam RaphaelHPV HIGH RISK WITH GENOTYPE, [id number] 00:00:00* Test Item Value Reference Range Interpretation Comme nts HPV HIGH RISK INTERP (test c ode = 27114) NEGATIVE HPV 16 (test code = 43875) NEGATIVE HPV 18 (test code = 83514) NEGATIVE HPV, HR, OTHER GENOTYPES (te st code = 68778) NEGATIVE Azam [id number] 00:00:00* Test Item Value Reference Range Interpretation Comme nts RPR RESULT (test code = 3501) NON-REACTIVE RPR TITER (test code = 3500) NOT INDIC. TITER Azam RaphaelACUTE HEPATITIS [id number] 00:00:00* Test Item Value Reference Range Interpretation Comme nts HEPATITIS A IgM (test code = 83730) NON-REACTIVE HEPATITIS B CORE IgM (test c ode = 4644) NON-REACTIVE HEPATITIS B SURF AG (test co de = 2739) NON-REACTIVE HEPATITIS C ANTIBODY (test c ode = 4675) NON-REACTIVE INTERPRETATION HEPATITIS A: (test code = 2552) (NOTE) INTERPRETATION HEPATITIS B: (test code = 60307) (NOTE) INTERPRETATION HEPATITIS C: (test code = 98688) (NOTE) Azam PuentePES SIMPLEX [id number] 00:00:00* Test Item Value Reference Range Interpretation Comme nts HERPES SIMPLEX AB, IgM (test code = 88834) 1.03 INDEX Azam RaphaelHERPES SIMPLEX 1/2 [id number] 00:00:00* Test Item Value Reference Range Interpretation Comme nts HERPES SIMPLEX 1 AB, IgG (te st code = 91469) 11.900 INDEX HERPES SIMPLEX 2 AB, IgG (te st code = 12915) 21.200 INDEX Azam RaphaelHIV 1/2 4TH GEN, RFLX [id number] 00:00:00* Test Item Value Reference Range Interpretation Comme nts HIV 1/2 4TH GEN, RFLX CONF ( test code = 3514) NON-REACTIVE Azam RaphaelGC AND CHLAMYDIA AMPLIFIED, [id number] 00:00:00* Test Item Value Reference Range Interpretation Comme nts CHLAMYDIA, NAAT, THINPREP (t est code = 41194) NEGATIVE GONORRHEA, NAAT, THINPREP (t est code = 08908) NEGATIVE Azam RaphaelPAP TEST, THINPREP, [id number] 00:00:00* Test Item Value Reference Range Interpretation Comme nts SOURCE: (test code = 8001) Cervical/Endocervical SLIDES: (test code = 8011) 1 LMP: (test code = 8021) 12/26/2022 SPECIMEN ADEQUACY: (test code = 77937) (NOTE) INTERPRETATION: (test code = 69644) NILM/NO EPITH. ABNORMALITY;SEE BELOW OTHER COMMENTS: (test code = 8081) (NOTE) BUSINESS DEVELOPMENT EXECUTIVE: (test code = 8101) HAYLIE Beach (ASCP) LOCATION: (test code = 43539) (NOTE) CPT: (test code = 8140) (NOTE) Azam RaphaelVAGINAL PATHOGENS DNA [id number] 00:00:00* Test Item Value Reference Range Interpretation Comme nts DWIGTH SPECIES (test code = 28449) NEGATIVE G. VAGINALIS (test code = ) POSITIVE T. VAGINALIS (test code = ) NEGATIVE Azam Vallejo AustinHPV HIGH RISK WITH GENOTYPE, [id number] 00:00:00* Test Item Value Reference Range Interpretation Comme nts HPV HIGH RISK INTERP (test c ode = 24515) NEGATIVE HPV 16 (test code = 06066) NEGATIVE HPV 18 (test code = 10747) NEGATIVE HPV, HR, OTHER GENOTYPES (te st code = 13177) NEGATIVE Azam Vallejo [id number] 00:00:00* Test Item Value Reference Range Interpretation Comme nts RPR RESULT (test code = 3501) NON-REACTIVE RPR TITER (test code = 3500) NOT INDIC. TITER Azam RaphaelPAP TEST, THINPREP, [id number] 12:31:46* Test Item Value Reference Range Interpretation Comme nts SOURCE: (test code = 8001) Cervical SLIDES: (test code = 8011) 1 LMP: (test code = 8021) NOT GIVEN SPECIMEN ADEQUACY: (test code = 35062) (NOTE) Satisfactory for evaluation. Endocervical cells/transformation zone component present. INTERPRETATION: (test code = 86384) NILM/NO EPITH. ABNORMALITY;SEE BELOW --- - NEGATIVE FOR INTRAEPITHELIAL LESION OR MALIGNANCY (NILM) ---- BUSINESS DEVELOPMENT EXECUTIVE : (test code = 8101) HAYLIE Beach (ASCP) LOCATION: (test code = 12947) (NOTE) Specimens proces sed and interpreted at [facility], [address] [place] [address], , CLIA: [id number] CPT: (test code = 8140) (NOTE) 20933 UNLESS OTH ERWISE INDICATED, COMPUTER AIDED AND BUSINESS DEVELOPMENT EXECUTIVE SCREENING PERFORMED. The Pap test is a screening test with an inherent, but low probability of error. Your patient should be reminded to consult you immediately if she experiences any suspicious signs or symptoms, regardless of her Pap test result. An alternate report format containing images or consolidated prior Pap history is available as applicable. HPV HIGH RISK WITH GENOTYPE, [id number] 12:26:32* Test Item Value Reference Range Interpretation Comme nts HPV HIGH RISK INTERP (test code = 45017) NEGATIVE NEGATIVE HPV 16 (test code = 04279) NEGATIVE HPV 18 (test code = 24715) NEGATIVE HPV, HR, OTHER GENOTYPES (test code = 71492) NEGATIVE Testing methodol ogy is real-time PCR [...] error. UNLESS OTHERWISE INDICATED, ALL TESTING PERFORMED [facility]. [address] [place] [address] ELECTRICAL ENGINEER MEP: TERRI MCCRARY M.D. CLIA NUMBER [id number] [facility] [place]. [id number] PAP TEST, THINPREP, [id number] 00:00:00* Test Item Value Reference Range Interpretation Comme nts SOURCE: (test code = 8001) Cervical SLIDES: (test code = 8011) 1 LMP: (test code = 8021) NOT GIVEN SPECIMEN ADEQUACY: (test code = 55627) (NOTE) INTERPRETATION: (test code = 78688) NILM/NO EPITH. ABNORMALITY;SEE BELOW BUSINESS DEVELOPMENT EXECUTIVE: (test code = 8101) Devora Menezes CT (ASCP) LOCATION: (test code = 40445) (NOTE) CPT: (test code = 8140) (NOTE) Azam RaphaelHPV HIGH RISK WITH GENOTYPE, [id number] 00:00:00* Test Item Value Reference Range Interpretation Comme nts HPV HIGH RISK INTERP (test c ode = 33956) NEGATIVE HPV 16 (test code = 04310) NEGATIVE HPV 18 (test code = 77787) NEGATIVE HPV, HR, OTHER GENOTYPES (te st code = 38534) NEGATIVE Azam RaphaelPAP TEST, THINPREP, [id number] 00:00:00* Test Item Value Reference Range Interpretation Comme nts SOURCE: (test code = 8001) Cervical SLIDES: (test code = 8011) 1 LMP: (test code = 8021) NOT GIVEN SPECIMEN ADEQUACY: (test code = 73695) (NOTE) INTERPRETATION: (test code = 91465) NILM/NO EPITH. ABNORMALITY;SEE BELOW BUSINESS DEVELOPMENT EXECUTIVE: (test code = 8101) HAYLIE Beach (ASCP) LOCATION: (test code = 69803) (NOTE) CPT: (test code = 8140) (NOTE) Azam RaphaelHPV HIGH RISK WITH GENOTYPE, [id number] 00:00:00* Test Item Value Reference Range Interpretation Comme nts HPV HIGH RISK INTERP (test c ode = 55995) NEGATIVE HPV 16 (test code = 87173) NEGATIVE HPV 18 (test code = 59881) NEGATIVE HPV, HR, OTHER GENOTYPES (te st code = 90720) NEGATIVE Azam RaphaelCT/NG, NAAT, [id number] 17:17:22* Test Item Value Reference Range Interpretation Comme nts CHLAMYDIA, NAAT, THINPREP (test code = 41084) NEGATIVE NEGATIVE A negative resul t does not exclude low level infection, specimensampling error, or collection error. Testing is performed with the [employer] 6800/8800 systems usingreal-time Polymerase Chain Reaction (PCR) method. GONORRHEA, NAAT, THINPREP (test code = 00969) NEGATIVE NEGATIVE A negative resul t does not exclude low level infection, specimensampling error, or collection error. Testing is performed with the [employer] 6800/8800 systems usingreal-time Polymerase Chain Reaction (PCR) method. GC AND CHLAMYDIA AMPLIFIED, [id number] 00:00:00* Test Item Value Reference Range Interpretation Comme nts CHLAMYDIA, NAAT, THINPREP (t est code = 29768) NEGATIVE GONORRHEA, NAAT, THINPREP (t est code = 90184) NEGATIVE Azam RaphaelGC AND CHLAMYDIA AMPLIFIED, [id number] 00:00:00* Test Item Value Reference Range Interpretation Comme nts CHLAMYDIA, NAAT, THINPREP (t est code = 25158) NEGATIVE GONORRHEA, NAAT, THINPREP (t est code = 82203) NEGATIVE Azam RaphaelVAGINAL PATHOGENS DNA [id number] 12:33:41* Test Item Value Reference Range Interpretation Comme nts DWIGHT SPECIES (test code = 26021) NEGATIVE NEGATIVE G. VAGINALIS (test code = 75481) POSITIVE NEGATIVE A T. VAGINALIS (test code = 87443) NEGATIVE NEGATIVE Note: The [employer] VPIII Microbial Identification Testis a DNA probe test intended for use in the detectionand identification of Dwight species, Gardnerellavaginalis and Trichomonas vaginalis nucleic acid. HIV 1/2 4TH GEN, RFLX [id number] 03:14:00* Test Item Value Reference Range Interpretation Comme nts HIV 1/2 4TH GEN, RFLX CONF ( test code = 3514) NON-REACTIVE NON-REACTIVE HEPATITIS PANEL, [id number] 03:14:00* Test Item Value Reference Range Interpretation Comme nts HEPATITIS A IgM (test code = 92049) NON-REACTIVE NON-REACTIVE HEPATITIS B CORE IgM (test code = 4644) NON-REACTIVE NON-REACTIVE HEPATITIS B SURF AG (test code = 2739) NON-REACTIVE NON-REACTIVE HEPATITIS C ANTIBODY (test code = 4675) NON-REACTIVE NON-REACTIVE INTERPRETATION HEPATITIS A: (test code = 2552) (NOTE) Hepatitis A sero logy shows no evidence of acute hepatitis A. INTERPRETATION HEPATITIS B: (test code = 09085) (NOTE) Hepatitis B sero logy shows no evidence of acute hepatitis B andno indication of exposure to hepatitis B virus in the previous kiko eight months. INTERPRETATION HEPATITIS C: (test code = 94069) (NOTE) Hepatitis C sero logy shows no evidence of exposure to hepatitisC virus at this time. It can take up to 12 months after exposure tothe hepatitis C virus for antibodies to become detectable in the blood in certain patients. UNLESS OTHERWISE INDICATED, ALL TESTING PERFORMED [facility] [address] [place] [address] ELECTRICAL ENGINEER MEP: TERRI MCCRARY M.D. [facility] NUMBER [id number] [facility] [place]. [id number] 02:43:33* Test Item Value Reference Range Interpretation Comme nts RPR RESULT (test code = 3501) NON-REACTIVE NON-REACTIVE RPR TITER (test code = 3500) NOT INDIC. TITER NOT INDIC. ACUTE HEPATITIS [id number] 00:00:00* Test Item Value Reference Range Interpretation Comme nts HEPATITIS A IgM (test code = 24538) NON-REACTIVE HEPATITIS B CORE IgM (test c ode = 4644) NON-REACTIVE HEPATITIS B SURF AG (test co de = 2739) NON-REACTIVE HEPATITIS C ANTIBODY (test c ode = 4675) NON-REACTIVE INTERPRETATION HEPATITIS A: (test code = 2552) (NOTE) INTERPRETATION HEPATITIS B: (test code = 86440) (NOTE) INTERPRETATION HEPATITIS C: (test code = 65589) (NOTE) Azam Vallejo AustinHIV 1/2 4TH GEN, RFLX [id number] 00:00:00* Test Item Value Reference Range Interpretation Comme nts HIV 1/2 4TH GEN, RFLX CONF ( test code = 3514) NON-REACTIVE Azam Vallejo AustinVAGINAL PATHOGENS DNA [id number] 00:00:00* Test Item Value Reference Range Interpretation Comme nts DWIGHT SPECIES (test code = 80094) NEGATIVE G. VAGINALIS (test code = 37327) POSITIVE T. VAGINALIS (test code = 72561) NEGATIVE Azam Vallejo [id number] 00:00:00* Test Item Value Reference Range Interpretation Comme nts RPR RESULT (test code = 3501) NON-REACTIVE RPR TITER (test code = 3500) NOT INDIC. TITER Azam RaphaelACUTE HEPATITIS [id number] 00:00:00* Test Item Value Reference Range Interpretation Comme nts HEPATITIS A IgM (test code = 81251) NON-REACTIVE HEPATITIS B CORE IgM (test c ode = 4644) NON-REACTIVE HEPATITIS B SURF AG (test co de = 0429) NON-REACTIVE HEPATITIS C ANTIBODY (test c ode = 4677) NON-REACTIVE INTERPRETATION HEPATITIS A: (test code = 2552) (NOTE) INTERPRETATION HEPATITIS B: (test code = 73581) (NOTE) INTERPRETATION HEPATITIS C: (test code = 94268) (NOTE) Azam RaphaelHIV 1/2 4TH GEN, RFLX [id number] 00:00:00* Test Item Value Reference Range Interpretation Comme nts HIV 1/2 4TH GEN, RFLX CONF ( test code = 3514) NON-REACTIVE Azam RaphaelVAGINAL PATHOGENS DNA [id number] 00:00:00* Test Item Value Reference Range Interpretation Comme nts DWIGHT SPECIES (test code = 52888) NEGATIVE G. VAGINALIS (test code = 92725) POSITIVE T. VAGINALIS (test code = 93775) NEGATIVE Azam [id number] 00:00:00* Test Item Value Reference Range Interpretation Comme nts RPR RESULT (test code = 3501) NON-REACTIVE RPR TITER (test code = 3500) NOT INDIC. TITER Azam RaphaelCOMP. METABOLIC PANEL (45459)[id number] 19:42:47* Test Item Value Reference Range Interpretation Comme nts NA (test code = 7259289772) 138 mmol/L 135-145 K (test code = 8720885746) 4.8 mmol/L 3.5-5.0 CL (test code = 8661048609) 102 mmol/L 98-108 CO2 TOTAL (test code = 5092598598) 25 mmol/L 23-31 AGAP (test code = 0864972848) 2-16 BUN (test code = 9001938168) 15 mg/dL 7-23 GLUCOSE (test code = 2058584572) 90 mg/dL 70-110 CREATININE (test code = 3788614992) 0.64 mg/dL 0.50-1.04 TOTAL BILI (test code = 6041823368) 0.8 mg/dL 0.1-1.1 CALCIUM (test code = 7044149806) 9.9 mg/dL 8.6-10.6 T PROTEIN (test code = 8433970830) 7.8 g/dL 6.3-8.2 ALBUMIN (test code = 4729547487) 5.0 g/dL 3.5-5.0 ALK PHOS (test code = 2622108187) 84 U/L 34-122 ALTv (test code = 1742-6) 14 U/L 5-35 AST(SGOT) (test code = 9853188622) 23 U/L 13-40 eGFR (test code = 0036499850) mL/min/1.73m2 [place] (test code = [place]) Association [...] or urine or abnormalities in imaging tests). [facility] WITH [id number] 19:29:29* Test Item Value Reference Range Interpretation Comme nts WBC (test code = 6690-2) See_Comment [[employer]] The system which generated this result transmitted reference range: 4.30 - 11.10 10*3/?L. The reference range was not used to interpret this result as normal/abnormal. RBC (test code = 789-8) See_Comment [Automated [employer] ge] The system which generated this result [...] 34.0 g/dL 31.6-35.1 RDW-SD (test code = 42309-2) 42.0 fL 39.0-49.9 RDW-CV (test code = 788-0) 12.1 % 12.0-15.5 PLT (test code = 777-3) See_Comment [Automated [employer] ge] The system which generated this result transmitted reference range: 166 - 358 10*3/?L. The reference range was not used to interpret this result as normal/abnormal. MPV (test code = 04049-4) 10.0 fL 9.5-12.9 NRBC/100 WBC (test code = 6783017610) See_Comment [Automated [employer] ssage] The system which generated this result transmitted reference range: 0.0 - 10.0 /100 WBCs. The reference range was not used to interpret this result as normal/abnormal. NRBC x10^3 (test code = 5167954856) <0.01 See_Comment [Automated [employer] ge] The system which generated this result transmitted reference range: 10*3/?L. The reference range was not used to interpret this result as normal/abnormal. GRAN MAT (NEUT) % (test code = 770-8) 65.5 % IMM GRAN % (test code = 7950232381) 0.40 % LYMPH % (test code = 736-9) 20.6 % MONO % (test code = 5905-5) 10.5 % EOS % (test code = 713-8) 2.1 % BASO % (test code = 706-2) 0.9 % GRAN MAT x10^3(ANC) (test code = 8565602763) 5.61 10*3/uL 1.88-7.09 IMM GRAN x10^3 (test code = 4517320750) 0.03 10*3/uL 0.00-0.06 LYMPH x10^3 (test code = 731-0) 1.76 10*3/uL 1.32-3.29 MONO x10^3 (test code = 742-7) 0.90 10*3/uL 0.33-0.92 EOS x10^3 (test code = 711-2) 0.18 10*3/uL 0.03-0.39 BASO x10^3 (test code = 704-7) 0.08 10*3/uL 0.01-0.07 H Lab Interpretation (test code = 78806-6) [facility] [id number] 18:47:00* Test Item Value Reference Range Interpretation Comme nts POCT PREG (test code = 1605) Negative On board controls acceptable with C Line (test code = 3574) Present POCT PREG LOT # (test code = 3575) [id number] POCT PREG TEST DATE ( test code = 3576) 02-24-2023 Lab Interpretation (test cod e = 46912-9) Normal [facility] [id number] 11:20:57* Test Item Value Reference Range Interpretation [...] previously r eported abnormal Pap (accession # [id number]) isreviewed. The atypical cells identified on the [...] TanNUMBER OF TISSUE PIECES: multipleSUBMITTED IN CASSETTE(S): [id number]: FormalinCOMMENTS:Filtered and entirely submitted. B) SPECIMEN LABELED: Cervix, 3 o'clockSIZE/WEIGHT: 0.3x0.2x0.1 cm AggregateSPECIMEN COLOR: TanNUMBER OF TISSUE PIECES: multipleSUBMITTED IN CASSETTE(S): [id number]: FormalinCOMMENTS:Entirely submitted intact. C) SPECIMEN LABELED: Cervix, 6 o'clockSIZE/WEIGHT: 0.3x0.2x0.1 cm SPECIMEN COLOR: TanNUMBER OF TISSUE PIECES: 1SUBMITTED IN CASSETTE(S): [id number]: FormalinCOMMENTS:Entirely submitted intact. D) SPECIMEN LABELED: Cervix, 9 o'clockSIZE/WEIGHT: 0.3x0.2x0.1 cm SPECIMEN COLOR: TanNUMBER OF TISSUE PIECES: 1SUBMITTED IN CASSETTE(S): [id number]: FormalinCOMMENTS:Entirely submitted intact. E) SPECIMEN LABELED: Cervix, 11 o'clockSIZE/WEIGHT: 0.4x0.3x0.3 cm SPECIMEN COLOR: TanNUMBER OF TISSUE PIECES: 1SUBMITTED IN CASSETTE(S): [id number]: FormalinCOMMENTS:Entirely submitted intact. PATHOLOGIST: (test code = 8250) (NOTE) Charisma Powers angelia Specimens processed at [facility], [address] [place] [address], , CLIA: [id number] interpreted at [facility], [address] [place] [address], , CLIA: [id number] DISCLAIMER (test code = 94832) (NOTE) IHC antibodies a re interpreted in the presence of appropriatelyfunctioning controls unless otherwise noted. CPT: (test code = 8400) (NOTE) 97502v6, 65021g3 UNLESS OTHERWISE INDICATED, ALL TESTING PERFORMED [facility], [facility]. [address] [place] [address] ELECTRICAL ENGINEER MEP: TERRI MCCRARY M.D. CLIA NUMBER [id number] [facility] [place]. [id number] SURGICAL PATHOLOGY [id number] 00:00:00* Test Item Value Reference Range Interpretation Comme nts DIAGNOSIS: (test code = 8200) (NOTE) COMMENTS: (test code = 8205) (NOTE) MICROSCOPIC DESCRIPTION: (te st code = 8210) (NOTE) CLINICAL DATA: (test code = 8401) (NOTE) GROSS DESCRIPTION: (test code = 8220) (NOTE) PATHOLOGIST: (test code = 8250) (NOTE) DISCLAIMER (test code = 05800) (NOTE) CPT: (test code = 8400) (NOTE) SURGICAL PATHOLOGY [id number] 00:00:00* Test Item Value Reference Range Interpretation Comme nts DIAGNOSIS: (test code = 8200) (NOTE) COMMENTS: (test code = 8205) (NOTE) MICROSCOPIC DESCRIPTION: (te st code = 8210) (NOTE) CLINICAL DATA: (test code = 8401) (NOTE) GROSS DESCRIPTION: (test code = 8220) (NOTE) PATHOLOGIST: (test code = 8250) (NOTE) DISCLAIMER (test code = 06373) (NOTE) CPT: (test code = 8400) (NOTE) SURGICAL PATHOLOGY [id number] 00:00:00* Test Item Value Reference Range Interpretation Comme nts DIAGNOSIS: (test code = 8200) (NOTE) COMMENTS: (test code = 8205) (NOTE) MICROSCOPIC DESCRIPTION: (te st code = 8210) (NOTE) CLINICAL DATA: (test code = 8401) (NOTE) GROSS DESCRIPTION: (test code = 8220) (NOTE) PATHOLOGIST: (test code = 8250) (NOTE) DISCLAIMER (test code = 77550) (NOTE) CPT: (test code = 8400) (NOTE) SURGICAL PATHOLOGY [id number] 00:00:00* Test Item Value Reference Range Interpretation Comme nts DIAGNOSIS: (test code = 8200) (NOTE) COMMENTS: (test code = 8205) (NOTE) MICROSCOPIC DESCRIPTION: (te st code = 8210) (NOTE) CLINICAL DATA: (test code = 8401) (NOTE) GROSS DESCRIPTION: (test code = 8220) (NOTE) PATHOLOGIST: (test code = 8250) (NOTE) DISCLAIMER (test code = 89363) (NOTE) CPT: (test code = 8400) (NOTE) Azam Vallejo AustinSURGICAL PATHOLOGY [id number] 00:00:00* Test Item Value Reference Range Interpretation Comme nts DIAGNOSIS: (test code = 8200) (NOTE) COMMENTS: (test code = 8205) (NOTE) MICROSCOPIC DESCRIPTION: (te st code = 8210) (NOTE) CLINICAL DATA: (test code = 8401) (NOTE) GROSS DESCRIPTION: (test code = 8220) (NOTE) PATHOLOGIST: (test code = 8250) (NOTE) DISCLAIMER (test code = 69851) (NOTE) CPT: (test code = 8400) (NOTE) SURGICAL PATHOLOGY [id number] 00:00:00* Test Item Value Reference Range Interpretation Comme nts DIAGNOSIS: (test code = 8200) (NOTE) COMMENTS: (test code = 8205) (NOTE) MICROSCOPIC DESCRIPTION: (te st code = 8210) (NOTE) CLINICAL DATA: (test code = 8401) (NOTE) GROSS DESCRIPTION: (test code = 8220) (NOTE) PATHOLOGIST: (test code = 8250) (NOTE) DISCLAIMER (test code = 28674) (NOTE) CPT: (test code = 8400) (NOTE) SURGICAL PATHOLOGY [id number] 00:00:00* Test Item Value Reference Range Interpretation Comme nts DIAGNOSIS: (test code = 8200) (NOTE) COMMENTS: (test code = 8205) (NOTE) MICROSCOPIC DESCRIPTION: (te st code = 8210) (NOTE) CLINICAL DATA: (test code = 8401) (NOTE) GROSS DESCRIPTION: (test code = 8220) (NOTE) PATHOLOGIST: (test code = 8250) (NOTE) DISCLAIMER (test code = 13568) (NOTE) CPT: (test code = 8400) (NOTE) Azam Vallejo AustinPAP TEST, THINPREP, [id number] 11:12:17* Test Item Value Reference Range Interpretation Comme nts SOURCE: (test code = 8001) Cervical/Endo cervical SLIDES: (test code = 8011) 1 LMP: (test code = 8021) 08/05/2021 SPECIMEN ADEQUACY: (test code = 36203) (NOTE) Satisfactory for evaluation. Endocervical cells/transformation zone component present. INTERPRETATION: (test code = 57826) ASCUS/EPITH. ABNORMALITY; SEE BELOW A -- ---- EPITHELIAL CELL ABNORMALITY Atypical squamous cells of undetermined significance (ASC-US) OTHER COMMENTS: (test code = 8081) (NOTE) Possible celis ges of Herpes virus present. Recommend PCR orculture for confirmation. PCR may be performed on this samplewithin 21 days of collection. Please contact [facility] Customer Serviceat [phone]. BUSINESS DEVELOPMENT EXECUTIVE: (test code = 8101) HAYLIE Anderson(ASC P) PATHOLOGIST INTERPRETATION BY: (test code = 8122) Dylan Holland LOCATION: (test code = 61898) (NOTE) Specimens proces sed at [facility], [address] [place] [address], , CLIA: [id number] interpreted at [facility], [address] [place] [address], , CLIA: [id number] CPT: (test code = 8140) (NOTE) 87659, 90709 UNL ESS OTHERWISE INDICATED, COMPUTER AIDED AND BUSINESS DEVELOPMENT EXECUTIVE SCREENING PERFORMED. The Pap test is a screening test with an inherent, but low probability of error. Your patient should be reminded to consult you immediately if she experiences any suspicious signs or symptoms, regardless of her Pap test result. An alternate report format containing images or consolidated prior Pap history is available as applicable. PAP TEST, THINPREP, [id number] 00:00:00* Test Item Value Reference Range Interpretation Comme nts SOURCE: (test code = 8001) Cervical/Endo cervic al SLIDES: (test code = 8011) 1 LMP: (test code = 8021) 08/05/2021 SPECIMEN ADEQUACY: (test code = 02128) (NOTE) INTERPRETATION: (test code = 60039) ASCUS/EPITH. ABNORMALITY; SEE BELOW OTHER COMMENTS: (test code = 8081) (NOTE) BUSINESS DEVELOPMENT EXECUTIVE: (test code = 8101) HAYLIE Anderson(ASCP) PATHOLOGIST INTERPRETATION BY: (test code = 8122) Dylan Holland LOCATION: (test code = 66539) (NOTE) CPT: (test code = 8140) (NOTE) PAP TEST, THINPREP, [id number] 00:00:00* Test Item Value Reference Range Interpretation Comme nts SOURCE: (test code = 8001) Cervical/Endo cervic al SLIDES: (test code = 8011) 1 LMP: (test code = 8021) 08/05/2021 SPECIMEN ADEQUACY: (test code = 36266) (NOTE) INTERPRETATION: (test code = 85697) ASCUS/EPITH. ABNORMALITY; SEE BELOW OTHER COMMENTS: (test code = 8081) (NOTE) BUSINESS DEVELOPMENT EXECUTIVE: (test code = 8101) HAYLIE Anderson(ASCP) PATHOLOGIST INTERPRETATION BY: (test code = 8122) Dylan Holland LOCATION: (test code = 22026) (NOTE) CPT: (test code = 8140) (NOTE) PAP TEST, THINPREP, [id number] 00:00:00* Test Item Value Reference Range Interpretation Comme nts SOURCE: (test code = 8001) Cervical/Endo cervic al SLIDES: (test code = 8011) 1 LMP: (test code = 8021) 08/05/2021 SPECIMEN ADEQUACY: (test code = 62042) (NOTE) INTERPRETATION: (test code = 28426) ASCUS/EPITH. ABNORMALITY; SEE BELOW OTHER COMMENTS: (test code = 8081) (NOTE) BUSINESS DEVELOPMENT EXECUTIVE: (test code = 8101) HALYIE Anderson(ASCP) PATHOLOGIST INTERPRETATION BY: (test code = 8122) Dylan Holland LOCATION: (test code = 72096) (NOTE) CPT: (test code = 8140) (NOTE) PAP TEST, THINPREP, [id number] 00:00:00* Test Item Value Reference Range Interpretation Comme nts SOURCE: (test code = 8001) Cervical/Endo cervic al SLIDES: (test code = 8011) 1 LMP: (test code = 8021) 08/05/2021 SPECIMEN ADEQUACY: (test code = 78859) (NOTE) INTERPRETATION: (test code = 68128) ASCUS/EPITH. ABNORMALITY; SEE BELOW OTHER COMMENTS: (test code = 8081) (NOTE) BUSINESS DEVELOPMENT EXECUTIVE: (test code = 8101) HAYLIE Anderson(ASCP) PATHOLOGIST INTERPRETATION BY: (test code = 8122) Dylan Holland LOCATION: (test code = 05716) (NOTE) CPT: (test code = 8140) (NOTE) PAP TEST, THINPREP, [id number] 00:00:00* Test Item Value Reference Range Interpretation Comme nts SOURCE: (test code = 8001) Cervical/Endo cervic al SLIDES: (test code = 8011) 1 LMP: (test code = 8021) 08/05/2021 SPECIMEN ADEQUACY: (test code = 07167) (NOTE) INTERPRETATION: (test code = 34806) ASCUS/EPITH. ABNORMALITY; SEE BELOW OTHER COMMENTS: (test code = 8081) (NOTE) BUSINESS DEVELOPMENT EXECUTIVE: (test code = 8101) HAYLIE Anderson(ASCP) PATHOLOGIST INTERPRETATION BY: (test code = 8122) Dylan Holland LOCATION: (test code = 91654) (NOTE) CPT: (test code = 8140) (NOTE) PAP TEST, THINPREP, [id number] 00:00:00* Test Item Value Reference Range Interpretation Comme nts SOURCE: (test code = 8001) Cervical/Endo cervic al SLIDES: (test code = 8011) 1 LMP: (test code = 8021) 08/05/2021 SPECIMEN ADEQUACY: (test code = 32755) (NOTE) INTERPRETATION: (test code = 50859) ASCUS/EPITH. ABNORMALITY; SEE BELOW OTHER COMMENTS: (test code = 8081) (NOTE) BUSINESS DEVELOPMENT EXECUTIVE: (test code = 8101) HAYLIE Anderson(ASCP) PATHOLOGIST INTERPRETATION BY: (test code = 8122) Dylan Holland LOCATION: (test code = 44319) (NOTE) CPT: (test code = 8140) (NOTE) Azam RaphaelPAP TEST, THINPREP, [id number] 00:00:00* Test Item Value Reference Range Interpretation Comme nts SOURCE: (test code = 8001) Cervical/Endo cervic al SLIDES: (test code = 8011) 1 LMP: (test code = 8021) 08/05/2021 SPECIMEN ADEQUACY: (test code = 48153) (NOTE) INTERPRETATION: (test code = 20125) ASCUS/EPITH. ABNORMALITY; SEE BELOW OTHER COMMENTS: (test code = 8081) (NOTE) BUSINESS DEVELOPMENT EXECUTIVE: (test code = 8101) HAYLIE Anderson(ASCP) PATHOLOGIST INTERPRETATION BY: (test code = 8122) Dylan Holland LOCATION: (test code = 19699) (NOTE) CPT: (test code = 8140) (NOTE) Azam Vallejo AustinCT/NG, TMA, [id number] 19:19:14* Test Item Value Reference Range Interpretation Comme nts GONORRHEA, TMA (test code = 46828) NEGATIVE NEGATIVE Assay methodolog y is nucleic acid amplification by emergency manager mediated amplification (TMA) utilizing the Aptima Combo 2 Assay. CHLAMYDIA, TMA (test code = 19982) NEGATIVE NEGATIVE Assay methodolog y is nucleic acid amplification by emergency manager mediated amplification (TMA) utilizing the Aptima Combo 2 Assay. HPV HIGH RISK WITH GENOTYPE, [id number] 16:29:18* Test Item Value Reference Range Interpretation Comme nts HPV HIGH RISK INTERP (test code = 66446) POSITIVE NEGATIVE A HPV 16 (test code = 17347) NEGATIVE HPV 18 (test code = 11829) NEGATIVE HPV, HR, OTHER GENOTYPES (test code = 52932) POSITIVE A Testing methodol ogy is real-time PCR utilizing hydrolysis probes with the [employer] 4800 system. The test individually detects genotypes 16 and 18, as well as the other 12 high risk types (31,33,35,39,45,51,52,56 ,58,59,66,68). The expected result is negative. A negative result does not rule out the presence of HPV not included in the genotype set, a low level of infection or specimen sampling error. UNLESS OTHERWISE INDICATED, ALL TESTING PERFORMED [facility] [address] [place], [place] [address] ELECTRICAL ENGINEER MEP: TERRI MCCRARY M.D. CLIA NUMBER [id number] [place]. [id number] VAGINAL PATHOGENS DNA [id number] 14:49:20* Test Item Value Reference Range Interpretation Comme nts DWIGHT SPECIES (test code = 88083) NEGATIVE NEGATIVE G. VAGINALIS (test code = 07104) POSITIVE NEGATIVE A T. VAGINALIS (test code = 10922) NEGATIVE NEGATIVE UNLESS OTHERWISE INDICATED, ALL TESTING PERFORMED [facility] [address] [place] [address] ELECTRICAL ENGINEER MEP: TERRI MCCRARY M.D. CLIA NUMBER [id number] [place]. [id number] HIV 1/2 4TH GEN, RFLX [id number] 05:59:23* Test Item Value Reference Range Interpretation Comme [facility] HIV 1/2 4TH GEN, RFLX CONF ( test code = 3514) NON-REACTIVE NON-REACTIVE HEPATITIS PANEL, [id number] 05:59:23* Test Item Value Reference Range Interpretation Comme nts HEPATITIS A IgM (test code = 37773) NON-REACTIVE NON-REACTIVE HEPATITIS B CORE IgM (test code = 4644) NON-REACTIVE NON-REACTIVE HEPATITIS B SURF AG (test code = 2739) NON-REACTIVE NON-REACTIVE HEPATITIS C ANTIBODY (test code = 4675) NON-REACTIVE NON-REACTIVE INTERPRETATION HEPATITIS A: (test code = 2552) (NOTE) Hepatitis A serology shows no evidence of acute hepatitis A. INTERPRETATION HEPATITIS B: (test code = 47945) (NOTE) Hepatitis B serology shows no evidence of acute hepatitis B andno indication of exposure to hepatitis B virus in the previous kiko eight months. INTERPRETATION HEPATITIS C: (test code = 62996) (NOTE) Hepatitis C serology shows no evidence of exposure to hepatitisC virus at this time. It can take up to 12 months after exposure tothe hepatitis C virus for antibodies to become detectable in the blood in certain patients. [id number] 05:28:14* Test Item Value Reference Range Interpretation Comme nts RPR RESULT (test code = 3501) NON-REACTIVE NON-REACTIVE RPR TITER (test code = 3500) NOT INDIC. TITER NOT INDIC. HIV AB/AG COMBO RFLX [id number] 00:00:00* Test Item Value Reference Range Interpretation Comme [facility] HIV 1/2 4TH GEN, RFLX CONF ( test code = 3514) NON-REACTIVE HPV HIGH RISK WITH GENOTYPE, [id number] 00:00:00* Test Item Value Reference Range Interpretation Comme [facility] HPV HIGH RISK INTERP (test c ode = 94306) POSITIVE HPV 16 (test code = 04346) NEGATIVE HPV 18 (test code = 41966) NEGATIVE HPV, HR, OTHER GENOTYPES (te st code = 75245) POSITIVE Azam F AustinGC AND CHLAMYDIA AMPLIFIED, [id number] 00:00:00* Test Item Value Reference Range Interpretation Comme [facility] GONORRHEA, TMA (test code = 27448) NEGATIVE CHLAMYDIA, TMA (test code = 92448) NEGATIVE ACUTE HEPATITIS [id number] 00:00:00* Test Item Value Reference Range Interpretation Comme nts HEPATITIS A IgM (test code = 79332) NON-REACTIVE HEPATITIS B CORE IgM (test c ode = 4622) NON-REACTIVE HEPATITIS B SURF AG (test co de = 2129) NON-REACTIVE HEPATITIS C ANTIBODY (test c ode = 8072) NON-REACTIVE INTERPRETATION HEPATITIS A: (test code = 2552) (NOTE) INTERPRETATION HEPATITIS B: (test code = 27493) (NOTE) INTERPRETATION HEPATITIS C: (test code = 52659) (NOTE) HPV HIGH RISK WITH GENOTYPE, [id number] 00:00:00* Test Item Value Reference Range Interpretation Comme nts HPV HIGH RISK INTERP (test c ode = 89042) POSITIVE HPV 16 (test code = 18297) NEGATIVE HPV 18 (test code = 65950) NEGATIVE HPV, HR, OTHER GENOTYPES (te st code = 12146) POSITIVE VAGINAL PATHOGENS DNA PANEL [ADDED]2021-08-16 00:00:00* Test Item Value Reference Range Interpretation Comme nts DWIGHT SPECIES (test code = ) NEGATIVE G. VAGINALIS (test code = 55689) POSITIVE T. VAGINALIS (test code = 83406) NEGATIVE Azam [id number] 00:00:00* Test Item Value Reference Range Interpretation Comme nts RPR RESULT (test code = 3501) NON-REACTIVE RPR TITER (test code = 3500) NOT INDIC. TITER [id number] 00:00:00* Test Item Value Reference Range Interpretation Comme nts RPR RESULT (test code = 3501) NON-REACTIVE RPR TITER (test code = 3500) NOT INDIC. TITER VAGINAL PATHOGENS DNA PANEL [ADDED]2021-08-16 00:00:00* Test Item Value Reference Range Interpretation Comme nts DWIGHT SPECIES (test code = ) NEGATIVE G. VAGINALIS (test code = 75847) POSITIVE T. VAGINALIS (test code = 33227) NEGATIVE HIV AB/AG COMBO RFLX [id number] 00:00:00* Test Item Value Reference Range Interpretation Comme nts HIV 1/2 4TH GEN, RFLX CONF ( test code = 3514) NON-REACTIVE GC AND CHLAMYDIA AMPLIFIED, [id number] 00:00:00* Test Item Value Reference Range Interpretation Comme nts GONORRHEA, TMA (test code = 77895) NEGATIVE CHLAMYDIA, TMA (test code = 21124) NEGATIVE GC AND CHLAMYDIA AMPLIFIED, [id number] 00:00:00* Test Item Value Reference Range Interpretation Comme nts GONORRHEA, TMA (test code = 70684) NEGATIVE CHLAMYDIA, TMA (test code = 65864) NEGATIVE HIV AB/AG COMBO RFLX [id number] 00:00:00* Test Item Value Reference Range Interpretation Comme nts HIV 1/2 4TH GEN, RFLX CONF ( test code = 3514) NON-REACTIVE ACUTE HEPATITIS [id number] 00:00:00* Test Item Value Reference Range Interpretation Comme nts HEPATITIS A IgM (test code = 87115) NON-REACTIVE HEPATITIS B CORE IgM (test c ode = 4644) NON-REACTIVE HEPATITIS B SURF AG (test co de = 2739) NON-REACTIVE HEPATITIS C ANTIBODY (test c ode = 4675) NON-REACTIVE INTERPRETATION HEPATITIS A: (test code = 2552) (NOTE) INTERPRETATION HEPATITIS B: (test code = 09265) (NOTE) INTERPRETATION HEPATITIS C: (test code = 30664) (NOTE) ACUTE HEPATITIS [id number] 00:00:00* Test Item Value Reference Range Interpretation Comme nts HEPATITIS A IgM (test code = 85503) NON-REACTIVE HEPATITIS B CORE IgM (test c ode = 4644) NON-REACTIVE HEPATITIS B SURF AG (test co de = 2739) NON-REACTIVE HEPATITIS C ANTIBODY (test c ode = 4675) NON-REACTIVE INTERPRETATION HEPATITIS A: (test code = 2552) (NOTE) INTERPRETATION HEPATITIS B: (test code = 59870) (NOTE) INTERPRETATION HEPATITIS C: (test code = 66210) (NOTE) [id number] 00:00:00* Test Item Value Reference Range Interpretation Comme nts RPR RESULT (test code = 3501) NON-REACTIVE RPR TITER (test code = 3500) NOT INDIC. TITER HPV HIGH RISK WITH GENOTYPE, [id number] 00:00:00* Test Item Value Reference Range Interpretation Comme nts HPV HIGH RISK INTERP (test c ode = 08043) POSITIVE HPV 16 (test code = 64420) NEGATIVE HPV 18 (test code = 56198) NEGATIVE HPV, HR, OTHER GENOTYPES (te st code = 59161) POSITIVE HPV HIGH RISK WITH GENOTYPE, [id number] 00:00:00* Test Item Value Reference Range Interpretation Comme nts HPV HIGH RISK INTERP (test c ode = 45593) POSITIVE HPV 16 (test code = 08386) NEGATIVE HPV 18 (test code = 46658) NEGATIVE HPV, HR, OTHER GENOTYPES (te st code = 90376) POSITIVE [id number] 00:00:00* Test Item Value Reference Range Interpretation Comme nts RPR RESULT (test code = 3501) NON-REACTIVE RPR TITER (test code = 3500) NOT INDIC. TITER [id number] 00:00:00* Test Item Value Reference Range Interpretation Comme nts RPR RESULT (test code = 3501) NON-REACTIVE RPR TITER (test code = 3500) NOT INDIC. TITER VAGINAL PATHOGENS DNA PANEL [ADDED]2021-08-16 00:00:00* Test Item Value Reference Range Interpretation Comme nts DWIGHT SPECIES (test code = ) NEGATIVE G. VAGINALIS (test code = 37730) POSITIVE T. VAGINALIS (test code = 11531) NEGATIVE VAGINAL PATHOGENS DNA PANEL [ADDED]2021-08-16 00:00:00* Test Item Value Reference Range Interpretation Comme nts DWIGHT SPECIES (test code = 93910) NEGATIVE G. VAGINALIS (test code = 89328) POSITIVE T. VAGINALIS (test code = 10616) NEGATIVE HIV AB/AG COMBO RFLX [id number] 00:00:00* Test Item Value Reference Range Interpretation Comme nts HIV 1/2 4TH GEN, RFLX CONF ( test code = 3514) NON-REACTIVE HIV AB/AG COMBO RFLX [id number] 00:00:00* Test Item Value Reference Range Interpretation Comme nts HIV 1/2 4TH GEN, RFLX CONF ( test code = 3514) NON-REACTIVE GC AND CHLAMYDIA AMPLIFIED, [id number] 00:00:00* Test Item Value Reference Range Interpretation Comme nts GONORRHEA, TMA (test code = 54113) NEGATIVE CHLAMYDIA, TMA (test code = 53671) NEGATIVE GC AND CHLAMYDIA AMPLIFIED, [id number] 00:00:00* Test Item Value Reference Range Interpretation Comme nts GONORRHEA, TMA (test code = 36405) NEGATIVE CHLAMYDIA, TMA (test code = 61682) NEGATIVE HIV AB/AG COMBO RFLX [id number] 00:00:00* Test Item Value Reference Range Interpretation Comme nts HIV 1/2 4TH GEN, RFLX CONF ( test code = 3514) NON-REACTIVE Azam RaphaelACUTE HEPATITIS [id number] 00:00:00* Test Item Value Reference Range Interpretation Comme nts HEPATITIS A IgM (test code = 35962) NON-REACTIVE HEPATITIS B CORE IgM (test c ode = 4644) NON-REACTIVE HEPATITIS B SURF AG (test co de = 2739) NON-REACTIVE HEPATITIS C ANTIBODY (test c ode = 4675) NON-REACTIVE INTERPRETATION HEPATITIS A: (test code = 2552) (NOTE) INTERPRETATION HEPATITIS B: (test code = 68001) (NOTE) INTERPRETATION HEPATITIS C: (test code = 36382) (NOTE) ACUTE HEPATITIS [id number] 00:00:00* Test Item Value Reference Range Interpretation Comme nts HEPATITIS A IgM (test code = 64175) NON-REACTIVE HEPATITIS B CORE IgM (test c ode = 4644) NON-REACTIVE HEPATITIS B SURF AG (test co de = 2739) NON-REACTIVE HEPATITIS C ANTIBODY (test c ode = 4675) NON-REACTIVE INTERPRETATION HEPATITIS A: (test code = 2552) (NOTE) INTERPRETATION HEPATITIS B: (test code = 98991) (NOTE) INTERPRETATION HEPATITIS C: (test code = 56055) (NOTE) GC AND CHLAMYDIA AMPLIFIED, [id number] 00:00:00* Test Item Value Reference Range Interpretation Comme nts GONORRHEA, TMA (test code = 14991) NEGATIVE CHLAMYDIA, TMA (test code = 18349) NEGATIVE Azam [id number] 00:00:00* Test Item Value Reference Range Interpretation Comme nts RPR RESULT (test code = 3501) NON-REACTIVE RPR TITER (test code = 3500) NOT INDIC. TITER [id number] 00:00:00* Test Item Value Reference Range Interpretation Comme nts RPR RESULT (test code = 3501) NON-REACTIVE RPR TITER (test code = 3500) NOT INDIC. TITER HPV HIGH RISK WITH GENOTYPE, [id number] 00:00:00* Test Item Value Reference Range Interpretation Comme nts HPV HIGH RISK INTERP (test c ode = 80529) POSITIVE HPV 16 (test code = 90181) NEGATIVE HPV 18 (test code = 31564) NEGATIVE HPV, HR, OTHER GENOTYPES (te st code = 03113) POSITIVE HPV HIGH RISK WITH GENOTYPE, [id number] 00:00:00* Test Item Value Reference Range Interpretation Comme nts HPV HIGH RISK INTERP (test c ode = 32514) POSITIVE HPV 16 (test code = 00491) NEGATIVE HPV 18 (test code = 90904) NEGATIVE HPV, HR, OTHER GENOTYPES (te st code = 76259) POSITIVE [id number] 00:00:00* Test Item Value Reference Range Interpretation Comme nts RPR RESULT (test code = 3501) NON-REACTIVE RPR TITER (test code = 3500) NOT INDIC. TITER VAGINAL PATHOGENS DNA PANEL [ADDED]2021-08-16 00:00:00* Test Item Value Reference Range Interpretation Comme nts DWIGHT SPECIES (test code = ) NEGATIVE G. VAGINALIS (test code = 94211) POSITIVE T. VAGINALIS (test code = 22121) NEGATIVE VAGINAL PATHOGENS DNA PANEL [ADDED]2021-08-16 00:00:00* Test Item Value Reference Range Interpretation Comme nts DWIGHT SPECIES (test code = 94118) NEGATIVE G. VAGINALIS (test code = 76846) POSITIVE T. VAGINALIS (test code = 57244) NEGATIVE ACUTE HEPATITIS [id number] 00:00:00* Test Item Value Reference Range Interpretation Comme nts HEPATITIS A IgM (test code = 86871) NON-REACTIVE HEPATITIS B CORE IgM (test c ode = 4644) NON-REACTIVE HEPATITIS B SURF AG (test co de = 2739) NON-REACTIVE HEPATITIS C ANTIBODY (test c ode = 4675) NON-REACTIVE INTERPRETATION HEPATITIS A: (test code = 2552) (NOTE) INTERPRETATION HEPATITIS B: (test code = 89174) (NOTE) INTERPRETATION HEPATITIS C: (test code = 09007) (NOTE) Azam Vallejo [id number] 00:00:00* Test Item Value Reference Range Interpretation Comme nts RPR RESULT (test code = 3501) NON-REACTIVE RPR TITER (test code = 3500) NOT INDIC. TITER Azam Vallejo DonavonHPV HIGH RISK WITH GENOTYPE, [id number] 00:00:00* Test Item Value Reference Range Interpretation Comme nts HPV HIGH RISK INTERP (test c ode = 94695) POSITIVE HPV 16 (test code = 44560) NEGATIVE HPV 18 (test code = 30528) NEGATIVE HPV, HR, OTHER GENOTYPES (te st code = 99106) POSITIVE Azam RaphaelVAGINAL PATHOGENS DNA PANEL [ADDED]2021-08-16 00:00:00* Test Item Value Reference Range Interpretation Comme nts DWIGHT SPECIES (test code = ) NEGATIVE G. VAGINALIS (test code = ) POSITIVE T. VAGINALIS (test code = ) NEGATIVE Azam RaphaelGC AND CHLAMYDIA AMPLIFIED, [id number] 00:00:00* Test Item Value Reference Range Interpretation Comme nts GONORRHEA, TMA (test code = 94371) NEGATIVE CHLAMYDIA, TMA (test code = 85723) NEGATIVE Azam RaphaelHIV AB/AG COMBO RFLX [id number] 00:00:00* Test Item Value Reference Range Interpretation Comme nts HIV 1/2 4TH GEN, RFLX CONF ( test code = 3514) NON-REACTIVE Azam RaphaelACUTE HEPATITIS [id number] 00:00:00* Test Item Value Reference Range Interpretation Comme nts HEPATITIS A IgM (test code = 42974) NON-REACTIVE HEPATITIS B CORE IgM (test c ode = 4644) NON-REACTIVE HEPATITIS B SURF AG (test co de = 2739) NON-REACTIVE HEPATITIS C ANTIBODY (test c ode = 4675) NON-REACTIVE INTERPRETATION HEPATITIS A: (test code = 2552) (NOTE) INTERPRETATION HEPATITIS B: (test code = 05911) (NOTE) INTERPRETATION HEPATITIS C: (test code = 72344) (NOTE) Azam [id number] 00:00:00* Test Item Value Reference Range Interpretation Comme nts RPR RESULT (test code = 3501) NON-REACTIVE RPR TITER (test code = 3500) NOT INDIC. TITER Azam RaphaelCBC W/AUTO DIFF WITH [id number] 12:09:41* Test Item Value Reference Range Interpretation [...] = 1065) 0.0 /100 WBC'S See_Comment [Automated [employer] ge] The system which generated this result [...] 0.00-0.10 ABS NUCLEATED RBCS (test code = 27829) 0.00 K/UL 0.00-0.11 TSH, THIRD [id number] 06:48:11* Test Item Value Reference Range Interpretation Comme nts TSH, THIRD GENERATION (test code = 2821) 1.130 UIU/ML 0.400-4.100 UNLESS OTHERWISE INDICATED, ALL TESTING PERFORMED [facility] [address] [place] [address] ELECTRICAL ENGINEER MEP: TERRI MCCRRAY M.D. CLIA NUMBER [id number] [facility] [place]. [id number] LIPID [id number] 06:12:16* Test Item Value Reference Range Interpretation [...] SPECIMENS. FOR MOREINFORMATION, SEE CLIENT ANNOUNCEMENT AT [email or web address] [email or web address] RATIO LDL/HDL (test code = 2238) 2.13 RATIO <3.22 COMPREHENSIVE METABOLIC [id number] 06:12:16* Test Item Value Reference Range Interpretation Comme nts GLUCOSE (test code = 2217) 89 MG/DL 70-99 BUN (test code = 2208) 12 MG/DL 6-20 CREATININE (test code = 2214) 0.52 MG/DL 0.60-1.30 L eGFR (2020 CKD-EPI) (test code = 58099) 127 ML/MIN/1.73 >60 CALC BUN/CREAT (test code = 2235) 23 RATIO 6-28 SODIUM (test code = 2231) 138 MEQ/L 133-146 POTASSIUM (test code = 2228) 4.0 MEQ/L 3.5-5.4 CHLORIDE (test code = 2215) 103 MEQ/L 95-107 CARBON DIOXIDE (test code = 2206) 22 MEQ/L 19-31 CALCIUM (test code = 2209) 9.6 MG/DL 8.5-10.5 PROTEIN, TOTAL (test code = 2229) 7.0 G/DL 6.1-8.3 ALBUMIN (test code = 2201) 4.6 G/DL 3.5-5.2 CALC GLOBULIN (test code = 2240) 2.4 G/DL 1.9-3.7 CALC A/G RATIO (test code = 2234) 1.9 RATIO 1.0-2.6 BILIRUBIN, TOTAL (test code = 2207) 0.6 MG/DL See_Comment [Automated me ssage] The system which generated this result transmitted reference range: <=1.2. The reference range was not used to interpret this result as normal/abnormal. ALKALINE PHOSPHATASE (test code = 2204) 99 U/L 40-114 AST (test code = 2218) 17 U/L 9-40 ALT (test code = 2219) 12 U/L 5-40 CBC W/AUTO [id number] 00:00:00* Test Item Value Reference Range Interpretation [...] ABS NUCLEATED RBCS (test cod e = 25576) 0.00 K/UL LIPID [id number] 00:00:00* Test Item Value Reference Range Interpretation Comme nts CHOLESTEROL (test code = 2210) 192 MG/DL TRIGLYCERIDES (test code = 2232) 78 MG/DL HDL CHOLESTEROL (test code = 2220) 56 MG/DL CALC LDL CHOL (test code = 2237) 119 MG/DL RISK RATIO LDL/HDL (test cod e = 2238) 2.13 RATIO COMPREHENSIVE METABOLIC [id number] 00:00:00* Test Item Value Reference Range Interpretation Comme nts GLUCOSE (test code = 2217) 89 MG/DL BUN (test code = 2208) 12 MG/DL CREATININE (test code = 2214) 0.52 MG/DL eGFR (2020 CKD-EPI) (test code = 50182) 127 ML/MIN/1.73 CALC BUN/CREAT (test code = [...] ALT (test code = 2219) 12 U/L [id number] 00:00:00* Test Item Value Reference Range Interpretation Comme nts TSH, THIRD GENERATION (test code = 2821) 1.130 UIU/ML [id number] 00:00:00* Test Item Value Reference Range Interpretation Comme nts TSH, THIRD GENERATION (test code = 2821) 1.130 UIU/ML CBC W/AUTO [id number] 00:00:00* Test Item Value Reference Range Interpretation [...] ABS NUCLEATED RBCS (test cod e = 79844) 0.00 K/UL CBC W/AUTO [id number] 00:00:00* Test Item Value Reference Range Interpretation [...] ABS NUCLEATED RBCS (test cod e = 34664) 0.00 K/UL CBC W/AUTO [id number] 00:00:00* Test Item Value Reference Range Interpretation [...] ABS NUCLEATED RBCS (test cod e = 69173) 0.00 K/UL [id number] 00:00:00* Test Item Value Reference Range Interpretation Comme nts TSH, THIRD GENERATION (test code = 2821) 1.130 UIU/ML Azam F AustinLIPID [id number] 00:00:00* Test Item Value Reference Range Interpretation Comme nts CHOLESTEROL (test code = 2210) 192 MG/DL TRIGLYCERIDES (test code = 2232) 78 MG/DL HDL CHOLESTEROL (test code = 2220) 56 MG/DL CALC LDL CHOL (test code = 2237) 119 MG/DL RISK RATIO LDL/HDL (test cod e = 2238) 2.13 RATIO LIPID [id number] 00:00:00* Test Item Value Reference Range Interpretation Comme nts CHOLESTEROL (test code = 2210) 192 MG/DL TRIGLYCERIDES (test code = 2232) 78 MG/DL HDL CHOLESTEROL (test code = 2220) 56 MG/DL CALC LDL CHOL (test code = 2237) 119 MG/DL RISK RATIO LDL/HDL (test cod e = 2238) 2.13 RATIO COMPREHENSIVE METABOLIC [id number] 00:00:00* Test Item Value Reference Range Interpretation Comme nts GLUCOSE (test code = 2217) 89 MG/DL BUN (test code = 2208) 12 MG/DL CREATININE (test code = 2214) 0.52 MG/DL eGFR (2020 CKD-EPI) (test code = 35436) 127 ML/MIN/1.73 CALC BUN/CREAT (test code = [...] code = 2219) 12 U/L COMPREHENSIVE METABOLIC [id number] 00:00:00* Test Item Value Reference Range Interpretation Comme nts GLUCOSE (test code = 2217) 89 MG/DL BUN (test code = 2208) 12 MG/DL CREATININE (test code = 2214) 0.52 MG/DL eGFR (2020 CKD-EPI) (test code = 23886) 127 ML/MIN/1.73 CALC BUN/CREAT (test code = 2235) 23 RATIO SODIUM (test code = 223) 138 MEQ/L POTASSIUM (test code = 2228) [...] 1.9 RATIO BILIRUBIN, TOTAL (test code = 7) 0.6 MG/DL ALKALINE PHOSPHATASE (test code = 2203) 99 U/L AST (test code = 2217) 17 U/L ALT (test code = 2219) 12 U/L [id number] 00:00:00* Test Item Value Reference Range Interpretation Comme nts TSH, THIRD GENERATION (test code = 2821) 1.130 UIU/ML [id number] 00:00:00* Test Item Value Reference Range Interpretation Comme nts TSH, THIRD GENERATION (test code = 2821) 1.130 UIU/ML [id number] 00:00:00* Test Item Value Reference Range Interpretation Comme nts TSH, THIRD GENERATION (test code = 2821) 1.130 UIU/ML CBC W/AUTO [id number] 00:00:00* Test Item Value Reference Range Interpretation [...] ABS NUCLEATED RBCS (test cod e = 55020) 0.00 K/UL CBC W/AUTO [id number] 00:00:00* Test Item Value Reference Range Interpretation [...] ABS NUCLEATED RBCS (test cod e = 43726) 0.00 K/UL CBC W/AUTO [id number] 00:00:00* Test Item Value Reference Range Interpretation [...] ABS NUCLEATED RBCS (test cod e = 63236) 0.00 K/UL CBC W/AUTO [id number] 00:00:00* Test Item Value Reference Range Interpretation [...] ABS NUCLEATED RBCS (test cod e = 69615) 0.00 K/UL Azam F AustinLIPID [id number] 00:00:00* Test Item Value Reference Range Interpretation Comme nts CHOLESTEROL (test code = 2210) 192 MG/DL TRIGLYCERIDES (test code = 2232) 78 MG/DL HDL CHOLESTEROL (test code = 2220) 56 MG/DL CALC LDL CHOL (test code = 2237) 119 MG/DL RISK RATIO LDL/HDL (test cod e = 2238) 2.13 RATIO LIPID [id number] 00:00:00* Test Item Value Reference Range Interpretation Comme nts CHOLESTEROL (test code = 2210) 192 MG/DL TRIGLYCERIDES (test code = 2232) 78 MG/DL HDL CHOLESTEROL (test code = 2220) 56 MG/DL CALC LDL CHOL (test code = 2237) 119 MG/DL RISK RATIO LDL/HDL (test cod e = 2238) 2.13 RATIO COMPREHENSIVE METABOLIC [id number] 00:00:00* Test Item Value Reference Range Interpretation Comme nts GLUCOSE (test code = 2217) 89 MG/DL BUN (test code = 2208) 12 MG/DL CREATININE (test code = 2214) 0.52 MG/DL eGFR (2020 CKD-EPI) (test code = 41590) 127 ML/MIN/1.73 CALC BUN/CREAT (test code = [...] code = 2219) 12 U/L COMPREHENSIVE METABOLIC [id number] 00:00:00* Test Item Value Reference Range Interpretation Comme nts GLUCOSE (test code = 2217) 89 MG/DL BUN (test code = 2208) 12 MG/DL CREATININE (test code = 2214) 0.52 MG/DL eGFR (2020 CKD-EPI) (test code = 59662) 127 ML/MIN/1.73 CALC BUN/CREAT (test code = [...] ALT (test code = 2219) 12 U/L [id number] 00:00:00* Test Item Value Reference Range Interpretation Comme nts TSH, THIRD GENERATION (test code = 2821) 1.130 UIU/ML [id number] 00:00:00* Test Item Value Reference Range Interpretation Comme nts TSH, THIRD GENERATION (test code = 2821) 1.130 UIU/ML [id number] 00:00:00* Test Item Value Reference Range Interpretation Comme nts TSH, THIRD GENERATION (test code = 2821) 1.130 UIU/ML LIPID [id number] 00:00:00* Test Item Value Reference Range Interpretation Comme nts CHOLESTEROL (test code = 2210) 192 MG/DL TRIGLYCERIDES (test code = 2232) 78 MG/DL HDL CHOLESTEROL (test code = 2220) 56 MG/DL CALC LDL CHOL (test code = 2237) 119 MG/DL RISK RATIO LDL/HDL (test cod e = 2238) 2.13 RATIO Azam RaphaelCOMPREHENSIVE METABOLIC [id number] 00:00:00* Test Item Value Reference Range Interpretation Comme nts GLUCOSE (test code = 2217) 89 MG/DL BUN (test code = 2208) 12 MG/DL CREATININE (test code = 2214) 0.52 MG/DL eGFR (2020 CKD-EPI) (test code = 41953) 127 ML/MIN/1.73 CALC BUN/CREAT (test code = [...] ALT (test code = 2219) 12 U/L Azam [id number] 00:00:00* Test Item Value Reference Range Interpretation Comme nts TSH, THIRD GENERATION (test code = 2821) 1.130 UIU/ML Azam RaphaelCBC W/AUTO [id number] 00:00:00* Test Item Value Reference Range Interpretation [...] ABS NUCLEATED RBCS (test cod e = 01811) 0.00 K/UL Azam RaphaelLIPID [id number] 00:00:00* Test Item Value Reference Range Interpretation Comme nts CHOLESTEROL (test code = 2210) 192 MG/DL TRIGLYCERIDES (test code = 2232) 78 MG/DL HDL CHOLESTEROL (test code = 2220) 56 MG/DL CALC LDL CHOL (test code = 2237) 119 MG/DL RISK RATIO LDL/HDL (test cod e = 2238) 2.13 RATIO Azam RaphaelCOMPREHENSIVE METABOLIC [id number] 00:00:00* Test Item Value Reference Range Interpretation Comme nts GLUCOSE (test code = 2217) 89 MG/DL BUN (test code = 2208) 12 MG/DL CREATININE (test code = 2214) 0.52 MG/DL eGFR (2020 CKD-EPI) (test code = 44711) 127 ML/MIN/1.73 CALC BUN/CREAT (test code = [...] ALT (test code = 2219) 12 U/L Azam Vallejo DonavonCBC W/AUTO [id number] 00:00:00* Test Item Value Reference Range Interpretation [...] ABS NUCLEATED RBCS (test cod e = 15295) 0.00 K/UL SARS-CoV-2 (COVID-19) by RT-PCR (HIGH RISK)2021-02-01 00:00:00* Test Item Value Reference Range Interpretation Comme nts SARS-CoV-2 INTERPRETATION (t est code = 85367) NEGATIVE SOURCE (test code = 81371) NOT SPECIFIED SARS-CoV-2 (COVID-19) by RT-PCR (HIGH RISK)2021-02-01 00:00:00* Test Item Value Reference Range Interpretation Comme nts SARS-CoV-2 INTERPRETATION (t est code = 78866) NEGATIVE SOURCE (test code = 08724) NOT SPECIFIED SARS-CoV-2 (COVID-19) by RT-PCR (HIGH RISK)2021-02-01 00:00:00* Test Item Value Reference Range Interpretation Comme nts SARS-CoV-2 INTERPRETATION (t est code = 48500) NEGATIVE SOURCE (test code = 72289) NOT SPECIFIED SARS-CoV-2 (COVID-19) by RT-PCR (HIGH RISK)2021-02-01 00:00:00* Test Item Value Reference Range Interpretation Comme nts SARS-CoV-2 INTERPRETATION (t est code = 21233) NEGATIVE SOURCE (test code = 18122) NOT SPECIFIED Azam Yoni [id number] (COVID-19) by RT-PCR (HIGH RISK)2021-02-01 00:00:00* Test Item Value Reference Range Interpretation Comme nts SARS-CoV-2 INTERPRETATION (t est code = 72063) NEGATIVE SOURCE (test code = 86997) NOT SPECIFIED SARS-CoV-2 (COVID-19) by RT-PCR (HIGH RISK)2021-02-01 00:00:00* Test Item Value Reference Range Interpretation Comme nts SARS-CoV-2 INTERPRETATION (t est code = 72079) NEGATIVE SOURCE (test code = 07714) NOT SPECIFIED SARS-CoV-2 (COVID-19) by RT-PCR (HIGH RISK)2021-02-01 00:00:00* Test Item Value Reference Range Interpretation Comme nts SARS-CoV-2 INTERPRETATION (t est code = 03764) NEGATIVE SOURCE (test code = 63010) NOT SPECIFIED Azam Vallejo DonavonPSYCHIATRIC W/AUTO [id number] 00:00:00* Test Item Value Reference Range Interpretation [...] code = 1015) 280 K/UL COMPREHENSIVE METABOLIC [id number] 00:00:00* Test Item Value Reference Range Interpretation Comme nts GLUCOSE (test code = 2217) 112 MG/DL BUN (test code = 2208) 14 MG/DL CREATININE (test code = 2214) 0.90 MG/DL eGFR AMER. (test cod e = 78149) 99 ML/MIN/1.73 eGFR NON- AMER. (test code = 95591) 85 ML/MIN/1.73 CALC BUN/CREAT (test code = [...] ALT (test code = 2219) 22 U/L [id number] 00:00:00* Test Item Value Reference Range Interpretation Comme nts TSH, THIRD GENERATION (test code = 2821) 1.640 UIU/ML [id number] 00:00:00* Test Item Value Reference Range Interpretation Comme nts TSH, THIRD GENERATION (test code = 2821) 1.640 UIU/ML TRICHOMONAS, URINE, [id number] 00:00:00* Test Item Value Reference Range Interpretation Comme nts TRICHOMONAS, NAAT (test code = 76912) NEGATIVE TRICHOMONAS, URINE, [id number] 00:00:00* Test Item Value Reference Range Interpretation Comme nts TRICHOMONAS, NAAT (test code = 75089) NEGATIVE Azam Vallejo DonavonCBC W/AUTO [id number] 00:00:00* Test Item Value Reference Range Interpretation [...] code = 1015) 280 K/UL CBC W/AUTO [id number] 00:00:00* Test Item Value Reference Range Interpretation [...] code = 1015) 280 K/UL CBC W/AUTO [id number] 00:00:00* Test Item Value Reference Range Interpretation [...] code = 1015) 280 K/UL COMPREHENSIVE METABOLIC [id number] 00:00:00* Test Item Value Reference Range Interpretation Comme nts GLUCOSE (test code = 2217) 112 MG/DL BUN (test code = 2208) 14 MG/DL CREATININE (test code = 2214) 0.90 MG/DL eGFR AMER. (test cod e = 63828) 99 ML/MIN/1.73 eGFR NON- AMER. (test code = 51336) 85 ML/MIN/1.73 CALC BUN/CREAT (test code = [...] code = 2219) 22 U/L COMPREHENSIVE METABOLIC [id number] 00:00:00* Test Item Value Reference Range Interpretation Comme nts GLUCOSE (test code = 2217) 112 MG/DL BUN (test code = 2208) 14 MG/DL CREATININE (test code = 2214) 0.90 MG/DL eGFR AMER. (test cod e = 43419) 99 ML/MIN/1.73 eGFR NON- AMER. (test code = 37020) 85 ML/MIN/1.73 CALC BUN/CREAT (test code = [...] ALT (test code = 2219) 22 U/L [id number] 00:00:00* Test Item Value Reference Range Interpretation Comme nts TSH, THIRD GENERATION (test code = 2821) 1.640 UIU/ML [id number] 00:00:00* Test Item Value Reference Range Interpretation Comme nts TSH, THIRD GENERATION (test code = 2821) 1.640 UIU/ML [id number] 00:00:00* Test Item Value Reference Range Interpretation Comme nts TSH, THIRD GENERATION (test code = 2821) 1.640 UIU/ML TRICHOMONAS, URINE, [id number] 00:00:00* Test Item Value Reference Range Interpretation Comme nts TRICHOMONAS, NAAT (test code = 79622) NEGATIVE TRICHOMONAS, URINE, [id number] 00:00:00* Test Item Value Reference Range Interpretation Comme nts TRICHOMONAS, NAAT (test code = 76033) NEGATIVE CBC W/AUTO [id number] 00:00:00* Test Item Value Reference Range Interpretation [...] code = 1015) 280 K/UL CBC W/AUTO [id number] 00:00:00* Test Item Value Reference Range Interpretation [...] code = 1015) 280 K/UL CBC W/AUTO [id number] 00:00:00* Test Item Value Reference Range Interpretation [...] code = 1015) 280 K/UL COMPREHENSIVE METABOLIC [id number] 00:00:00* Test Item Value Reference Range Interpretation Comme nts GLUCOSE (test code = 2217) 112 MG/DL BUN (test code = 2208) 14 MG/DL CREATININE (test code = 2214) 0.90 MG/DL eGFR AMER. (test cod e = 44449) 99 ML/MIN/1.73 eGFR NON- AMER. (test code = 37433) 85 ML/MIN/1.73 CALC BUN/CREAT (test code = [...] code = 2219) 22 U/L COMPREHENSIVE METABOLIC [id number] 00:00:00* Test Item Value Reference Range Interpretation Comme nts GLUCOSE (test code = 2217) 112 MG/DL BUN (test code = 2208) 14 MG/DL CREATININE (test code = 2214) 0.90 MG/DL eGFR AMER. (test cod e = 52722) 99 ML/MIN/1.73 eGFR NON- AMER. (test code = 94944) 85 ML/MIN/1.73 CALC BUN/CREAT (test code = [...] ALT (test code = 2219) 22 U/L [id number] 00:00:00* Test Item Value Reference Range Interpretation Comme nts TSH, THIRD GENERATION (test code = 2821) 1.640 UIU/ML CBC W/AUTO [id number] 00:00:00* Test Item Value Reference Range Interpretation [...] COUNT (test code = 1015) 280 K/UL Azam [id number] 00:00:00* Test Item Value Reference Range Interpretation Comme nts TSH, THIRD GENERATION (test code = 2821) 1.640 UIU/ML [id number] 00:00:00* Test Item Value Reference Range Interpretation Comme nts TSH, THIRD GENERATION (test code = 2821) 1.640 UIU/ML TRICHOMONAS, URINE, [id number] 00:00:00* Test Item Value Reference Range Interpretation Comme nts TRICHOMONAS, NAAT (test code = 67170) NEGATIVE TRICHOMONAS, URINE, [id number] 00:00:00* Test Item Value Reference Range Interpretation Comme nts TRICHOMONAS, NAAT (test code = 23008) NEGATIVE COMPREHENSIVE METABOLIC [id number] 00:00:00* Test Item Value Reference Range Interpretation Comme nts GLUCOSE (test code = 2217) 112 MG/DL BUN (test code = 2208) 14 MG/DL CREATININE (test code = 2214) 0.90 MG/DL eGFR AMER. (test cod e = 63904) 99 ML/MIN/1.73 eGFR NON- AMER. (test code = 33764) 85 ML/MIN/1.73 CALC BUN/CREAT (test code = [...] ALT (test code = 2219) 22 U/L Azam [id number] 00:00:00* Test Item Value Reference Range Interpretation Comme nts TSH, THIRD GENERATION (test code = 2821) 1.640 UIU/ML Azam RaphaelTRICHOMONAS, URINE, [id number] 00:00:00* Test Item Value Reference Range Interpretation Comme nts TRICHOMONAS, NAAT (test code = 42096) NEGATIVE Azam RaphaelCBC W/AUTO [id number] 00:00:00* Test Item Value Reference Range Interpretation [...] COUNT (test code = 1015) 280 K/UL Azam RaphaelCOMPREHENSIVE METABOLIC [id number] 00:00:00* Test Item Value Reference Range Interpretation Comme nts GLUCOSE (test code = 2217) 112 MG/DL BUN (test code = 2208) 14 MG/DL CREATININE (test code = 2214) 0.90 MG/DL eGFR AMER. (test cod e = 62072) 99 ML/MIN/1.73 eGFR NON- AMER. (test code = 14812) 85 ML/MIN/1.73 CALC BUN/CREAT (test code = [...] ALT (test code = 2219) 22 U/L Azam [id number] 00:00:00* Test Item Value Reference Range Interpretation Comme nts TSH, THIRD GENERATION (test code = 2821) 1.640 UIU/ML Azam Vallejo DonavonCBC W/AUTO [id number] 00:00:00* Test Item Value Reference Range Interpretation [...] = 1015) 280 K/UL HCG, QUANTITATIVE [ADDED]2020-06-23 00:00:00* Test Item Value Reference Range Interpretation Comme nts HCG, QUANTITATIVE (test code = 1890) <5 MIU/ML NOTE: [ADDED]2020-06-23 00:00:00* Test Item [...] QUANTITATIVE (test code = 2506) <5 MIU/ML Azam RaphaelNOTE: [ADDED]2020-06-23 00:00:00* Test Item Value Reference Range Interpretation Comme nts NOTE: (test code = 998) (NOTE) NOTE: [ADDED]2020-06-23 00:00:00* Test Item Value Reference Range Interpretation Comme nts NOTE: (test code = 998) (NOTE) Azam RaphaelHCG, QUANTITATIVE [ADDED]2020-06-23 00:00:00* Test Item Value Reference Range Interpretation Comme nts HCG, QUANTITATIVE (test code = 2506) <5 MIU/ML Azam RaphaelNOTE: [ADDED]2020-06-23 00:00:00* Test Item Value Reference Range Interpretation Comme nts NOTE: (test code = 998) (NOTE) Azam RaphaelHCG, QUANTITATIVE [ADDED]2020-06-23 00:00:00* Test Item Value Reference Range Interpretation Comme nts HCG, QUANTITATIVE (test code = 2506) <5 MIU/ML CULTURE, [id number] 00:00:00* Test Item Value Reference Range Interpretation Comme nts CULTURE, URINE (test code = 91433) SPECIMEN NUMBER: [id number] CULTURE, [id number] 00:00:00* Test Item Value Reference Range Interpretation Comme nts CULTURE, URINE (test code = 82254) SPECIMEN NUMBER: [id number] Azam RaphaelCULTURE, [id number] 00:00:00* Test Item Value Reference Range Interpretation Comme nts CULTURE, URINE (test code = 22366) SPECIMEN NUMBER: [id number] CULTURE, [id number] 00:00:00* Test Item Value Reference Range Interpretation Comme nts CULTURE, URINE (test code = 91422) SPECIMEN NUMBER: [id number] CULTURE, [id number] 00:00:00* Test Item Value Reference Range Interpretation Comme nts CULTURE, URINE (test code = 40744) SPECIMEN NUMBER: [id number] CULTURE, [id number] 00:00:00* Test Item Value Reference Range Interpretation Comme nts CULTURE, URINE (test code = 31182) SPECIMEN NUMBER: [id number] CULTURE, [id number] 00:00:00* Test Item Value Reference Range Interpretation Comme nts CULTURE, URINE (test code = 65761) SPECIMEN NUMBER: [id number] Azam RaphaelHIV AB/AG COMBO RFLX [id number] 00:00:00* Test Item Value Reference Range Interpretation Comme nts HIV 1/2 4TH GEN, RFLX CONF ( test code = 3514) NON-REACTIVE RPR REFLEX TO [id number] 00:00:00* Test Item Value Reference Range Interpretation Comme nts RPR (test code = 25951) NON-REACTIVE RPR TITER (test code = 3500) [...] (NOTE) INTERPRETATION HEPATITIS B: (test code = 88766) (NOTE) INTERPRETATION HEPATITIS C: (test code = 58269) (NOTE) HEPATITIS A IgM [REFLEX]2020-06-21 00:00:00* Test Item Value Reference Range Interpretation Comme nts HEPATITIS A IgM (test code = 2728) NON-REACTIVE HEPATITIS PROFILE (A,B,C)2020-06-21 00:00:00* Test Item Value [...] (NOTE) INTERPRETATION HEPATITIS B: (test code = 78669) (NOTE) INTERPRETATION HEPATITIS C: (test code = 69278) (NOTE) Azam RaphaelGC AND CHLAMYDIA, AMPLIFIED, [id number] 00:00:00* Test Item Value Reference Range Interpretation Comme nts GONORRHEA, NAAT (test code = 75153) NEGATIVE CHLAMYDIA, NAAT (test code = 03311) NEGATIVE GC AND CHLAMYDIA, AMPLIFIED, [id number] 00:00:00* Test Item Value Reference Range Interpretation Comme nts GONORRHEA, NAAT (test code = 96475) NEGATIVE CHLAMYDIA, NAAT (test code = 73673) NEGATIVE HIV AB/AG COMBO RFLX [id number] 00:00:00* Test Item Value Reference Range Interpretation Comme nts HIV 1/2 4TH GEN, RFLX CONF ( test code = 3514) NON-REACTIVE HIV AB/AG COMBO RFLX [id number] 00:00:00* Test Item Value Reference Range Interpretation Comme nts HIV 1/2 4TH GEN, RFLX CONF ( test code = 3514) NON-REACTIVE RPR REFLEX TO [id number] 00:00:00* Test Item Value Reference Range Interpretation Comme nts RPR (test code = 16504) NON-REACTIVE RPR TITER (test code = 3500) NOT INDIC. TITER RPR REFLEX TO [id number] 00:00:00* Test Item Value Reference Range Interpretation Comme nts RPR (test code = 44646) NON-REACTIVE RPR TITER (test code = 3500) NOT INDIC. TITER HEPATITIS A IgM [REFLEX]2020-06-21 00:00:00* Test Item Value Reference Range Interpretation Comme nts HEPATITIS A IgM (test code = 2728) NON-REACTIVE Azam F AustinHEPATITIS PROFILE (A,B,C)2020-06-21 00:00:00* Test Item Value Reference [...] (NOTE) INTERPRETATION HEPATITIS B: (test code = 66536) (NOTE) INTERPRETATION HEPATITIS C: (test code = 13503) (NOTE) HEPATITIS PROFILE (A,B,C)2020-06-21 00:00:00* Test Item [...] (NOTE) INTERPRETATION HEPATITIS B: (test code = 34119) (NOTE) INTERPRETATION HEPATITIS C: (test code = 98755) (NOTE) HEPATITIS A IgM [REFLEX]2020-06-21 00:00:00* Test Item Value Reference Range Interpretation Comme nts HEPATITIS A IgM (test code = 2728) NON-REACTIVE GC AND CHLAMYDIA, AMPLIFIED, [id number] 00:00:00* Test Item Value Reference Range Interpretation Comme nts GONORRHEA, NAAT (test code = 05036) NEGATIVE CHLAMYDIA, NAAT (test code = 27602) NEGATIVE GC AND CHLAMYDIA, AMPLIFIED, [id number] 00:00:00* Test Item Value Reference Range Interpretation Comme nts GONORRHEA, NAAT (test code = 45775) NEGATIVE CHLAMYDIA, NAAT (test code = 34615) NEGATIVE GC AND CHLAMYDIA, AMPLIFIED, [id number] 00:00:00* Test Item Value Reference Range Interpretation Comme nts GONORRHEA, NAAT (test code = 95112) NEGATIVE CHLAMYDIA, NAAT (test code = 41750) NEGATIVE Azam RaphaelHIV AB/AG COMBO RFLX [id number] 00:00:00* Test Item Value Reference Range Interpretation Comme nts HIV 1/2 4TH GEN, RFLX CONF ( test code = 3514) NON-REACTIVE HIV AB/AG COMBO RFLX [id number] 00:00:00* Test Item Value Reference Range Interpretation Comme nts HIV 1/2 4TH GEN, RFLX CONF ( test code = 3514) NON-REACTIVE RPR REFLEX TO [id number] 00:00:00* Test Item Value Reference Range Interpretation Comme nts RPR (test code = 30269) NON-REACTIVE RPR TITER (test code = 3500) NOT INDIC. TITER RPR REFLEX TO [id number] 00:00:00* Test Item Value Reference Range Interpretation Comme nts RPR (test code = 92143) NON-REACTIVE RPR TITER (test code = 3500) [...] (NOTE) INTERPRETATION HEPATITIS B: (test code = 55509) (NOTE) INTERPRETATION HEPATITIS C: (test code = 13947) (NOTE) HEPATITIS PROFILE (A,B,C)2020-06-21 00:00:00* Test Item [...] (NOTE) INTERPRETATION HEPATITIS B: (test code = 27882) (NOTE) INTERPRETATION HEPATITIS C: (test code = 26291) (NOTE) HEPATITIS A IgM [REFLEX]2020-06-21 00:00:00* Test Item Value Reference Range Interpretation Comme nts HEPATITIS A IgM (test code = 2728) NON-REACTIVE HIV AB/AG COMBO RFLX [id number] 00:00:00* Test Item Value Reference Range Interpretation Comme nts HIV 1/2 4TH GEN, RFLX CONF ( test code = 3514) NON-REACTIVE Azam Vallejo AustinRPR REFLEX TO [id number] 00:00:00* Test Item Value Reference Range Interpretation Comme nts RPR (test code = 36943) NON-REACTIVE RPR TITER (test code = 3500) NOT INDIC. TITER Azam Vallejo AustinHEPATITIS PROFILE (A,B,C)2020-06-21 00:00:00* Test Item Value Reference [...] (NOTE) INTERPRETATION HEPATITIS B: (test code = 42959) (NOTE) INTERPRETATION HEPATITIS C: (test code = 42422) (NOTE) Azam Vallejo AustinHEPATITIS A IgM [REFLEX]2020-06-21 00:00:00* Test Item Value Reference Range Interpretation Comme nts HEPATITIS A IgM (test code = 2728) NON-REACTIVE Azam RaphaelGC AND CHLAMYDIA, AMPLIFIED, [id number] 00:00:00* Test Item Value Reference Range Interpretation Comme nts GONORRHEA, NAAT (test code = 60805) NEGATIVE CHLAMYDIA, NAAT (test code = 21780) NEGATIVE Azam RaphaelHIV AB/AG COMBO RFLX [id number] 00:00:00* Test Item Value Reference Range Interpretation Comme nts HIV 1/2 4TH GEN, RFLX CONF ( test code = 3514) NON-REACTIVE Azam Vallejo AustinRPR REFLEX TO [id number] 00:00:00* Test Item Value Reference Range Interpretation Comme nts RPR (test code = 94449) NON-REACTIVE RPR TITER (test code = 3500) NOT INDIC. TITER Azam RaphaelGC AND CHLAMYDIA, AMPLIFIED, [id number] 00:00:00* Test Item Value Reference Range Interpretation Comme nts GONORRHEA, NAAT (test code = 95858) NEGATIVE CHLAMYDIA, NAAT (test code = 66392) NEGATIVE HIV AB/AG COMBO RFLX [id number] 00:00:00* Test Item Value Reference Range Interpretation Comme nts HIV 1/2 4TH GEN, RFLX CONF ( test code = 3514) NON-REACTIVE [id number] 00:00:00* Test Item Value Reference Range Interpretation Comme nts RPR RESULT (test code = 3501) NON-REACTIVE RPR TITER (test code = 3500) NOT INDIC. TITER [id number] 00:00:00* Test Item Value Reference Range Interpretation Comme nts RPR RESULT (test code = 3501) NON-REACTIVE RPR TITER (test code = 3500) NOT INDIC. TITER GC AND CHLAMYDIA, AMPLIFIED, [id number] 00:00:00* Test Item Value Reference Range Interpretation Comme nts GONORRHEA, NAAT (test code = 03340) NEGATIVE CHLAMYDIA, NAAT (test code = 12340) NEGATIVE [id number] 00:00:00* Test Item Value Reference Range Interpretation Comme nts RPR RESULT (test code = 3501) NON-REACTIVE RPR TITER (test code = 3500) NOT INDIC. TITER Azam F AustinVAGINAL PATHOGENS DNA [id number] 00:00:00* Test Item Value Reference Range Interpretation Comme nts DWIGHT SPECIES (test code = ) NEGATIVE G. VAGINALIS (test code = 96773) POSITIVE T. VAGINALIS (test code = ) NEGATIVE VAGINAL PATHOGENS DNA [id number] 00:00:00* Test Item Value Reference Range Interpretation Comme nts DWIGHT SPECIES (test code = ) NEGATIVE G. VAGINALIS (test code = 26578) POSITIVE T. VAGINALIS (test code = 66299) NEGATIVE GC AND CHLAMYDIA, AMPLIFIED, [id number] 00:00:00* Test Item Value Reference Range Interpretation Comme nts GONORRHEA, NAAT (test code = 48294) NEGATIVE CHLAMYDIA, NAAT (test code = 15930) NEGATIVE Azam RaphaelHIV AB/AG COMBO RFLX [id number] 00:00:00* Test Item Value Reference Range Interpretation Comme nts HIV 1/2 4TH GEN, RFLX CONF ( test code = 3514) NON-REACTIVE HIV AB/AG COMBO RFLX [id number] 00:00:00* Test Item Value Reference Range Interpretation Comme nts HIV 1/2 4TH GEN, RFLX CONF ( test code = 3514) NON-REACTIVE [id number] 00:00:00* Test Item Value Reference Range Interpretation Comme nts RPR RESULT (test code = 3501) NON-REACTIVE RPR TITER (test code = 3500) NOT INDIC. TITER [id number] 00:00:00* Test Item Value Reference Range Interpretation Comme nts RPR RESULT (test code = 3501) NON-REACTIVE RPR TITER (test code = 3500) NOT INDIC. TITER [id number] 00:00:00* Test Item Value Reference Range Interpretation Comme nts RPR RESULT (test code = 3501) NON-REACTIVE RPR TITER (test code = 3500) NOT INDIC. TITER GC AND CHLAMYDIA, AMPLIFIED, [id number] 00:00:00* Test Item Value Reference Range Interpretation Comme nts GONORRHEA, NAAT (test code = 53322) NEGATIVE CHLAMYDIA, NAAT (test code = 64790) NEGATIVE GC AND CHLAMYDIA, AMPLIFIED, [id number] 00:00:00* Test Item Value Reference Range Interpretation Comme nts GONORRHEA, NAAT (test code = 12903) NEGATIVE CHLAMYDIA, NAAT (test code = 92415) NEGATIVE VAGINAL PATHOGENS DNA [id number] 00:00:00* Test Item Value Reference Range Interpretation Comme nts DWIGHT SPECIES (test code = ) NEGATIVE G. VAGINALIS (test code = 34561) POSITIVE T. VAGINALIS (test code = 51168) NEGATIVE VAGINAL PATHOGENS DNA [id number] 00:00:00* Test Item Value Reference Range Interpretation Comme nts DWIGHT SPECIES (test code = ) NEGATIVE G. VAGINALIS (test code = 92299) POSITIVE T. VAGINALIS (test code = 91869) NEGATIVE HIV AB/AG COMBO RFLX [id number] 00:00:00* Test Item Value Reference Range Interpretation Comme nts HIV 1/2 4TH GEN, RFLX CONF ( test code = 3514) NON-REACTIVE VAGINAL PATHOGENS DNA [id number] 00:00:00* Test Item Value Reference Range Interpretation Comme nts DWIGHT SPECIES (test code = ) NEGATIVE G. VAGINALIS (test code = 27543) POSITIVE T. VAGINALIS (test code = 27699) NEGATIVE Azam F AustinHIV AB/AG COMBO RFLX [id number] 00:00:00* Test Item Value Reference Range Interpretation Comme nts HIV 1/2 4TH GEN, RFLX CONF ( test code = 3514) NON-REACTIVE [id number] 00:00:00* Test Item Value Reference Range Interpretation Comme nts RPR RESULT (test code = 3501) NON-REACTIVE RPR TITER (test code = 3500) NOT INDIC. TITER [id number] 00:00:00* Test Item Value Reference Range Interpretation Comme nts RPR RESULT (test code = 3501) NON-REACTIVE RPR TITER (test code = 3500) NOT INDIC. TITER [id number] 00:00:00* Test Item Value Reference Range Interpretation Comme nts RPR RESULT (test code = 3501) NON-REACTIVE RPR TITER (test code = 3500) NOT INDIC. TITER GC AND CHLAMYDIA, AMPLIFIED, [id number] 00:00:00* Test Item Value Reference Range Interpretation Comme nts GONORRHEA, NAAT (test code = 86893) NEGATIVE CHLAMYDIA, NAAT (test code = 74439) NEGATIVE GC AND CHLAMYDIA, AMPLIFIED, [id number] 00:00:00* Test Item Value Reference Range Interpretation Comme nts GONORRHEA, NAAT (test code = 39763) NEGATIVE CHLAMYDIA, NAAT (test code = 32769) NEGATIVE HIV AB/AG COMBO RFLX [id number] 00:00:00* Test Item Value Reference Range Interpretation Comme nts HIV 1/2 4TH GEN, RFLX CONF ( test code = 3514) NON-REACTIVE Azam Vallejo [id number] 00:00:00* Test Item Value Reference Range Interpretation Comme nts RPR RESULT (test code = 3501) NON-REACTIVE RPR TITER (test code = 3500) NOT INDIC. TITER Azam Vallejo AustinGC AND CHLAMYDIA, AMPLIFIED, [id number] 00:00:00* Test Item Value Reference Range Interpretation Comme nts GONORRHEA, NAAT (test code = 63637) NEGATIVE CHLAMYDIA, NAAT (test code = 58177) NEGATIVE Azam Vallejo AustinVAGINAL PATHOGENS DNA [id number] 00:00:00* Test Item Value Reference Range Interpretation Comme nts DWIGHT SPECIES (test code = 21471) NEGATIVE G. VAGINALIS (test code = 45822) POSITIVE T. VAGINALIS (test code = 70056) NEGATIVE Azam Vallejo AustinHIV AB/AG COMBO RFLX [id number] 00:00:00* Test Item Value Reference Range Interpretation Comme nts HIV 1/2 4TH GEN, RFLX CONF ( test code = 3514) NON-REACTIVE Azam F AustinVAGINAL PATHOGENS DNA [id number] 00:00:00* Test Item Value Reference Range Interpretation Comme nts DWIGHT SPECIES (test code = 69337) NEGATIVE G. VAGINALIS (test code = 92602) POSITIVE T. VAGINALIS (test code = 28318) NEGATIVE GC AND CHLAMYDIA, AMPLIFIED, [id number] 00:00:00* Test Item Value Reference Range Interpretation Comme nts GONORRHEA, TMA (test code = 01877) NEGATIVE CHLAMYDIA, TMA (test code = 94853) NEGATIVE Azam F AustinGC AND CHLAMYDIA, AMPLIFIED, [id number] 00:00:00* Test Item Value Reference Range Interpretation Comme nts GONORRHEA, TMA (test code = 74775) NEGATIVE CHLAMYDIA, TMA (test code = 46118) NEGATIVE GC AND CHLAMYDIA, AMPLIFIED, [id number] 00:00:00* Test Item Value Reference Range Interpretation Comme nts GONORRHEA, TMA (test code = 99720) NEGATIVE CHLAMYDIA, TMA (test code = 22089) NEGATIVE GC AND CHLAMYDIA, AMPLIFIED, [id number] 00:00:00* Test Item Value Reference Range Interpretation Comme nts GONORRHEA, TMA (test code = 83533) NEGATIVE CHLAMYDIA, TMA (test code = 26061) NEGATIVE GC AND CHLAMYDIA, AMPLIFIED, [id number] 00:00:00* Test Item Value Reference Range Interpretation Comme nts GONORRHEA, TMA (test code = 90385) NEGATIVE CHLAMYDIA, TMA (test code = 61654) NEGATIVE GC AND CHLAMYDIA, AMPLIFIED, [id number] 00:00:00* Test Item Value Reference Range Interpretation Comme nts GONORRHEA, TMA (test code = 52121) NEGATIVE CHLAMYDIA, TMA (test code = 10330) NEGATIVE GC AND CHLAMYDIA, AMPLIFIED, [id number] 00:00:00* Test Item Value Reference Range Interpretation Comme nts GONORRHEA, TMA (test code = 55975) NEGATIVE CHLAMYDIA, TMA (test code = 99784) NEGATIVE Azam Yoni RaphaelPAP TEST, THINPREP, [id number] 00:00:00* Test Item Value Reference Range Interpretation Comme nts SOURCE: (test code = 8001) Cervical/Endocervical SLIDES: (test code = 8011) 1 LMP: (test code = 8021) 08/19/2018 SPECIMEN ADEQUACY: (test code = 84029) (NOTE) INTERPRETATION: (test code = 46266) NILM/NO EPITH. ABNORMALITY;SEE BELOW BUSINESS DEVELOPMENT EXECUTIVE: (test code = 8101) HAYLIE MATAIS(ASCP)IAC LOCATION: (test code = 23256) (NOTE) CPT: (test code = 8140) (NOTE) GC AND CHLAMYDIA AMPLIFIED, [id number] 00:00:00* Test Item Value Reference Range Interpretation Comme nts GONORRHEA, TMA (test code = 88931) TEST NOT PERFORMED CHLAMYDIA, TMA (test code = 34009) TEST NOT PERFORMED GC AND CHLAMYDIA AMPLIFIED, [id number] 00:00:00* Test Item Value Reference Range Interpretation Comme nts GONORRHEA, TMA (test code = 44788) TEST NOT PERFORMED CHLAMYDIA, TMA (test code = 23635) TEST NOT PERFORMED PAP TEST, THINPREP, [id number] 00:00:00* Test Item Value Reference Range Interpretation Comme nts SOURCE: (test code = 8001) Cervical/Endocervical SLIDES: (test code = 8011) 1 LMP: (test code = 8021) 08/19/2018 SPECIMEN ADEQUACY: (test code = 94088) (NOTE) INTERPRETATION: (test code = 81513) NILM/NO EPITH. ABNORMALITY;SEE BELOW BUSINESS DEVELOPMENT EXECUTIVE: (test code = 8101) RUSSELL PARCHER,CT(ASCP)IAC LOCATION: (test code = 21743) (NOTE) CPT: (test code = 8140) (NOTE) GC AND CHLAMYDIA AMPLIFIED, [id number] 00:00:00* Test Item Value Reference Range Interpretation Comme nts GONORRHEA, TMA (test code = 59444) TEST NOT PERFORMED CHLAMYDIA, TMA (test code = 80559) TEST NOT PERFORMED PAP TEST, THINPREP, [id number] 00:00:00* Test Item Value Reference Range Interpretation Comme nts SOURCE: (test code = 8001) Cervical/Endocervical SLIDES: (test code = 8011) 1 LMP: (test code = 8021) 08/19/2018 SPECIMEN ADEQUACY: (test code = 02851) (NOTE) INTERPRETATION: (test code = 82108) NILM/NO EPITH. ABNORMALITY;SEE BELOW BUSINESS DEVELOPMENT EXECUTIVE: (test code = 8101) RUSSELL PARCHER,CT(ASCP)IAC LOCATION: (test code = 90740) (NOTE) CPT: (test code = 8140) (NOTE) PAP TEST, THINPREP, [id number] 00:00:00* Test Item Value Reference Range Interpretation Comme nts SOURCE: (test code = 8001) Cervical/Endocervical SLIDES: (test code = 8011) 1 LMP: (test code = 8021) 08/19/2018 SPECIMEN ADEQUACY: (test code = 07040) (NOTE) INTERPRETATION: (test code = 85346) NILM/NO EPITH. ABNORMALITY;SEE BELOW BUSINESS DEVELOPMENT EXECUTIVE: (test code = 8101) RUSSELL PARCHER,CT(ASCP)IAC LOCATION: (test code = 05741) (NOTE) CPT: (test code = 8140) (NOTE) GC AND CHLAMYDIA AMPLIFIED, [id number] 00:00:00* Test Item Value Reference Range Interpretation Comme nts GONORRHEA, TMA (test code = 04984) TEST NOT PERFORMED CHLAMYDIA, TMA (test code = 06956) TEST NOT PERFORMED PAP TEST, THINPREP, [id number] 00:00:00* Test Item Value Reference Range Interpretation Comme nts SOURCE: (test code = 8001) Cervical/Endocervical SLIDES: (test code = 8011) 1 LMP: (test code = 8021) 08/19/2018 SPECIMEN ADEQUACY: (test code = 29353) (NOTE) INTERPRETATION: (test code = 10442) NILM/NO EPITH. ABNORMALITY;SEE BELOW BUSINESS DEVELOPMENT EXECUTIVE: (test code = 8101) RUSSELL PARCHER,CT(ASCP)IAC LOCATION: (test code = 67756) (NOTE) CPT: (test code = 8140) (NOTE) Azam Banda AND CHLAMYDIA AMPLIFIED, [id number] 00:00:00* Test Item Value Reference Range Interpretation Comme nts GONORRHEA, TMA (test code = 24951) TEST NOT PERFORMED CHLAMYDIA, TMA (test code = 73196) TEST NOT PERFORMED Azam MéndezP TEST, THINPREP, [id number] 00:00:00* Test Item Value Reference Range Interpretation Comme nts SOURCE: (test code = 8001) Cervical/Endocervical SLIDES: (test code = 8011) 1 LMP: (test code = 8021) 08/19/2018 SPECIMEN ADEQUACY: (test code = 49145) (NOTE) INTERPRETATION: (test code = 49172) NILM/NO EPITH. ABNORMALITY;SEE BELOW BUSINESS DEVELOPMENT EXECUTIVE: (test code = 8101) RUSSELL PARCHER,CT(ASCP)IAC LOCATION: (test code = 04998) (NOTE) CPT: (test code = 8140) (NOTE) Azam Yoni RaphaelGC AND CHLAMYDIA AMPLIFIED, [id number] 00:00:00* Test Item Value Reference Range Interpretation Comme nts GONORRHEA, TMA (test code = 05972) TEST NOT PERFORMED CHLAMYDIA, TMA (test code = 03759) TEST NOT PERFORMED Azam Banda AND CHLAMYDIA AMPLIFIED, [id number] 00:00:00* Test Item Value Reference Range Interpretation Comme nts GONORRHEA, TMA (test code = 09743) TEST NOT PERFORMED CHLAMYDIA, TMA (test code = 51330) TEST NOT PERFORMED PAP TEST, THINPREP, [id number] 00:00:00* Test Item Value Reference Range Interpretation Comme nts SOURCE: (test code = 8001) Cervical/Endocervical SLIDES: (test code = 8011) 1 LMP: (test code = 8021) 08/19/2018 SPECIMEN ADEQUACY: (test code = 37060) (NOTE) INTERPRETATION: (test code = 94474) NILM/NO EPITH. ABNORMALITY;SEE BELOW BUSINESS DEVELOPMENT EXECUTIVE: (test code = 8101) HAYLIE MATIAS(ASCP)IAC LOCATION: (test code = 95068) (NOTE) CPT: (test code = 8140) (NOTE) HIV AB/AG COMBO RFLX [id number] 00:00:00* Test Item Value Reference Range Interpretation Comme [facility] HIV 1/2 4TH GEN, RFLX CONF ( test code = 3514) NON-REACTIVE HPV HIGH RISK WITH GENOTYPE, [id number] 00:00:00* Test Item Value Reference Range Interpretation Comme [facility] HPV HIGH RISK INTERP (test c ode = 84730) NEGATIVE HPV 16 (test code = 91703) NEGATIVE HPV 18 (test code = 23480) NEGATIVE HPV, HR, OTHER GENOTYPES (te st code = 71770) NEGATIVE ACUTE HEPATITIS [id number] 00:00:00* Test Item Value Reference Range Interpretation Comme nts HEPATITIS A IgM (test code = 14628) NON-REACTIVE HEPATITIS B CORE IgM (test c ode = 4644) NON-REACTIVE HEPATITIS B SURF AG (test co de = 6039) NON-REACTIVE HEPATITIS C ANTIBODY (test c ode = 4675) NON-REACTIVE HCV INDEX (test code = 39226) 0.11 INTERPRETATION HEPATITIS A: (test code = 2552) (NOTE) INTERPRETATION HEPATITIS B: (test code = 45840) (NOTE) INTERPRETATION HEPATITIS C: (test code = 57246) (NOTE) [id number] 00:00:00* Test Item Value Reference Range Interpretation Comme nts RPR RESULT (test code = 3501) NON-REACTIVE RPR TITER (test code = 3500) NOT INDIC. TITER ACUTE HEPATITIS [id number] 00:00:00* Test Item Value Reference Range Interpretation Comme nts HEPATITIS A IgM (test code = 78302) NON-REACTIVE HEPATITIS B CORE IgM (test c ode = 4644) NON-REACTIVE HEPATITIS B SURF AG (test co de = 2739) NON-REACTIVE HEPATITIS C ANTIBODY (test c ode = 4675) NON-REACTIVE HCV INDEX (test code = 76612) 0.11 INTERPRETATION HEPATITIS A: (test code = 2552) (NOTE) INTERPRETATION HEPATITIS B: (test code = 23763) (NOTE) INTERPRETATION HEPATITIS C: (test code = 58199) (NOTE) Azam [id number] 00:00:00* Test Item Value Reference Range Interpretation Comme nts RPR RESULT (test code = 3501) NON-REACTIVE RPR TITER (test code = 3500) NOT INDIC. TITER [id number] 00:00:00* Test Item Value Reference Range Interpretation Comme nts RPR RESULT (test code = 3501) NON-REACTIVE RPR TITER (test code = 3500) NOT INDIC. TITER HIV AB/AG COMBO RFLX [id number] 00:00:00* Test Item Value Reference Range Interpretation Comme nts HIV 1/2 4TH GEN, RFLX CONF ( test code = 3514) NON-REACTIVE HIV AB/AG COMBO RFLX [id number] 00:00:00* Test Item Value Reference Range Interpretation Comme nts HIV 1/2 4TH GEN, RFLX CONF ( test code = 3514) NON-REACTIVE HPV HIGH RISK WITH GENOTYPE, [id number] 00:00:00* Test Item Value Reference Range Interpretation Comme nts HPV HIGH RISK INTERP (test c ode = 59047) NEGATIVE HPV 16 (test code = 39666) NEGATIVE HPV 18 (test code = 96269) NEGATIVE HPV, HR, OTHER GENOTYPES (te st code = 04979) NEGATIVE HPV HIGH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 2021-10-18 |+ + +| Pt requesting imaging, low dose CT ordered. | 2021-10-30 || Discussed that insurance may decline d/t age under 50. | || Pt has been smoking at least 1 PPD for the past 20 years. | || Pt declines referral to pulmonology | |+ + +| Refer to pulmonology for spirometry | 2021-10-30 |+ + +| Refer to pulmonology for spirometry | 2021-10-30 |+ + +| weight and height normal | 2022-02-13 || Healthy weight | |+ + +| UA: Blood trace, leukocytes trace | 2022-02-13 || urine cx | |+ + +| Macrobid 100 mg BID x 7 days | 2022-02-13 || RTC if symptoms worsen or persist. | |+ + +| see plan above | 2022-02-13 |+ + +| Rx prednisone pack titrated | 2022-03-10 || Antihistamine (Claritin/Zyrtec for day time, Benadryl at night) and calamine | || lotion as needed to help for itching. | || Remind patient not to scratch area to prevent worsening of skin | |+ + +| Patient states she has a history of abnormal pap last year. | 2022-04-25 || Last 2018 pap in clinic was normal | || PAP/HPV | |+ + +| REFERRAL TO PSYCHOLOGIST | 2022-07-08 |+ + +| symptomatic treatment as discussed, oral prednisone. virtual audio visit only. | 2022-11-10 || recommend pt make in office appt with PCP for followup and for next rash | || outbreak | || rash could take several weeks to resolve | || RX for Prednisone 50 MG Tablet TAKE 1 TABLET DAILY | || RX for Clobetasol Propionate 0.05 % Ointment APPLY AND GENTLY MASSAGE INTO | || AFFECTED AREA(S) TWICE DAILY - sent for future outbreaks, do not use | || concurrently with PO steroids, DO NOT apply to face or neck areas | || Can try OTC antihistamine of choice PRN itching | || ED precautions | || RTO PRN | |+ + +| site healing, no red flag s/s | 2022-11-10 || discussed s/s infection, ED precautions | || provided work excuse | || RTO PRN | |+ + +| COVID FLU RSV | 2022-11-17 || Bromfed take as directed | || declined azithromycin | || | || | || | || If covid positive, isolate for 5 days and strict mask use 5 days later. | || Consider Paxlovid | |+ + +| COVID FLU RSV | 2022-11-17 |+ + +| COVID FLU RSV | 2022-11-17 |+ + +| COVID FLU RSV | 2022-11-17 |+ + +| Recommend daily exercise as part of a healthy lifestyle. | 2022-11-17 || 30 of moderate aerobic exercise 5 times a week. Increase your activity as | || tolerated. | |+ + +| Recommend diet high in fruits and vegetables, lean meats, low in fat and | 2022-11-17 || processed sugars. Monitor portion sizes. | |+ + +| Discussed healthy weight gain. | 2023-01-07 |+ + +| WET MOUNT | 2023-01-07 |+ + +| TSH, results pending | 2023-08-14 |+ + +| RTO for assessment | 2023-08-16 || Hypoallergenic soap | || May try tape method d/t concerns of worms | || Stool specimen | || Hemorrhoid cream OTC | |+ + +| Increase intake of calorie-dense, healthy foods. | 2023-08-17 |+ + +17665-9Rtmc of TreatmentLNCARE PLANTXTSFA|[id number] for patient gliqJpyjieaWheqgokeiQILBv05 Section NarrativeNARRATIVEFormatted C-CDA narrative textSCHRISTUS St. [facility] Centerxavier [facility]2024-[facility]-24T00:00:00 [facility]am [facility] 2023-06-18 00:00:00 [id number] T00:00:00+ + +| Plan Activity | Plan Date |+ + +| 32 y/o WWE | 2018-08-30 || PAP WITH HPV | || CBE- DECLINED | || | || | || | || You can take charge of your health by staying current on well-care visits, | || screenings, and immunizations. Our goal is to help you live a healthier and | || happier life through preventive care. | || Recommend annual blood work: Complete Blood Count, Comprehensive metabolic | || panel, fasting lipid panel and TSH. | || Recommend a Tetanus-diphtheria every 10 years and a Flu vaccine every year | || unless it is contraindicated. | || HIV test one time during adulthood (through age 64) | || Take a daily multivitamin | || Occasionally check your blood pressure and notify the clinic if your blood | || pressure is over 140/80 or lower than 80/60. | || Schedule annual examination | || PAP Smear, HPV, STD panel, HSV | |+ + +| Test Code: 9325 Description: ACUTE HEPATITIS PROFILE | 2018-08-30 || Test Code: 3500 Description: RPR | || Test Code: 3540 Description: HIV AB/AG COMBO RFLX CONF | || Test Code: 4123 Description: GC AND CHLAMYDIA AMPLIFIED, THINPREP | || Clinical treatment will be based on results. | |+ + +| Wet mount preformed | 2020-02-20 |+ + +| STD PANEL | 2020-02-20 || chlamydia/ GC. | || TRICHOMONAS | || HERPES 1&2 IGM ( 3949) | || HERPES 1&2 IGG ( 9932) | || Sexual hygiene and use of condoms advised. | || The only way to avoid sexually transmitted diseases is to not have vaginal, | || anal, or oral sex. | || Be in a long-term mutually monogamous relationship with a partner who has been | || tested and has negative STD test results; | || Use latex condoms the right way every time you have sex. | |+ + +| Dexamethasone 8 mg IM injection given in office | 2020-03-10 || Start Medrol Dose Chavez | || Keep skin clean and dry | || Avoid scratching / Cut nails short | || Monitor for s/s of infection - discussed | || RTO in 5-7 days if no improvement, sooner if worsening in condition. | |+ + +| STD testing done in clinic today results pending | 2020-06-20 |+ + +| UPT done in clinic and negative | 2020-06-21 || Bleeding has resolved | || VSS | || discussed her body has already had the miscarriage , that the body typically | || will abort chromosomal abnormalities s, miscarriages risk decreased | || dramatically after 12 weeks | || Ok to start trying to conceive if desired, discussed can get the apps to track | || cycle and will show when she is ovulating. | || Discussed miscarriages are no fault of the patient | || Advised if wanting to try to conceive go ahead and start taking folic acid | || daily | || Support and compassion given during discussion | |+ + +| Reviewed previous labs | 2020-06-27 || Labs performed, pending results: | || Recommended vaccines given: | || RTC for annual WAE | |+ + +| Start on bland diet. Sprite and Gingerale can help to sooth the stomach | 2020-06-27 || can take zofran PRN | || will start on PPI daily | |+ + +| TSH ordered | 2020-06-27 || follow up PRN | |+ + +| differentials are gastritis , PUD, anxiety, h pylori, | 2020-06-27 || will start PPI daily for probable tx of gastritis | || reflux diet | |+ + +| Will try Hydroxyzine to help with sleeping . | 2020-06-27 || Pt to take 1 hour before bed | || follow up with psych | |+ + +| BC counseling given | 2020-06-27 || BC hand outs with options given | || Advised to visit [email or web address] to help make decisions | || Make apt when decision is made. | |+ + +| Hx of will get UA | 2020-06-27 |+ + +| counseling | 2020-12-17 |+ + +| COVID FLU RSV | 2021-01-30 || Supportive treatment for symptoms including rest, fluids, vitamin C | || May take OTC acetaminophen, antihistamines, or decongestants/expectorants | || following dosage recommendations for symptoms. | || Continue to follow CDC guidelines and recommendations with regard to | || quarantine, social distancing, and facial covering. | || ED precaution for respiratory distress, chest pain, or high fever. | |+ + +| Z-Pack x 1 | 2021-01-30 || Flonase 2 sprays q nostril qd | || Bromfed DM 1-2 tsp QID prn | || increase fluids | || probiotics OTC | |+ + +| Likely viral. Discussed that cough may linger for 3-4 weeks from onset. | 2021-02-05 || Discontinue Bromfed DM 1-2 tsp QID prn for cough. | || Start Tessalon perles 100 mg 1-2 capsules TID as needed for cough. | || Increase fluids | || Albuterol inhaler sent to pharmacy. | || Recommended smoking cessation. | || Return to clinic if symptoms persist or worsen. Follow-up wheezing and | || shortness of breath if this persists beyond typical course of viral illness. | || ED precautions for respiratory distress. | |+ + +| Rapid strep test | 2021-05-09 || Recommend throat lozenges, warm fluids such as tea, gargling with warm | || saltwater | || Ibuprofen or Tylenol may be helpful for pain | || ER precautions for high fever, trouble breathing, muffled voice, drooling from | || the mouth, uvula deviation, or difficulty swallowing. | || Return to clinic if symptoms persist or worsen | |+ + +| Tylenol or ibuprofen taken as directed as needed for headache | 2021-05-09 || Rest, fluids | || Return to clinic if symptoms persist or worsen | |+ + +| Auto-Add by COVID19 Screen Import | 2021-05-12 |+ + +| advised to continue quarantine for additional 5 days based on symptoms | 2021-05-12 || continue self-quarantine | || continue to follow local guidelines and recommendations with regarding to | || social distancing and facial covering. | || ER precaution for respiratory distress | || rto 5d for possible clearance or retesting | |+ + +| Drawing CBC today. | 2021-06-07 || Will discuss plan with results | |+ + +| CBC drawn today | 2021-06-07 || Follow up with results | |+ + +| Drawing CMP, lipid panel today. | 2021-06-07 || Will discuss plan with results | |+ + +| CXR | 2021-07-15 || Xopenex HFA 45 mcg/actuation aerosol inhaler Inhale 1 puff twice a day | |+ + +| sulfamethoxazole 800 mg-trimethoprim 160 mg tablet Take 1 twice a day x 10 days | 2021-07-15 || amoxicillin 875 mg-potassium clavulanate 125 mg tablet Take 1 twice a day x 10 | || days | || s/e of meds discussed with pt | |+ + +| ibuprofen 600 mg tablet Take 1 every 6-8 hours as needed | 2021-07-15 |+ + +| Abnormal PAP | 2021-08-22 || Refer for colposcopy | |+ + +| Advised to schedule an Women health appointment | 2021-08-22 || Medication sent empirically | || metronidazole 500 mg tablet bid po x 7 days-- advised to follow up | || s/e of meds discussed with pt | |+ + +| Consent signed | 2021-08-29 || Colposcopy with biopsy and ECC performed. Patient tolerated well | || Awaiting results | |+ + +| See above plan | 2021-08-29 |+ + +| UPT - negative | 2021-08-29 |+ + +| 09/23/2021- ruptured left hemorrhagic ovarian cyst | 2021-09-25 |+ + +| US complete with transvaginal | 2021-09-25 || 1 cm complex left ovarian cyst with multiple septations most likely hemorrhagic | || cyst- ruptured left ovarian cyst | || non symptomatic and not anemic | |+ + +| 4.7 cm bulla on left lower lung | 2021-09-25 || CHEST CT | |+ + +| UA | 2021-09-25 |+ + +| See plan #1 | 2021-10-18 |+ + +| Refer to pulmonology for spirometry | 2021-10-30 || albuterol neb soln | |+ + +| Refer to pulmonology for spirometry | 2021-10-30 |+ + +| Refer to pulmonology for spirometry | 2021-10-30 |+ + +| weight and height normal | 2022-02-13 || Healthy weight | |+ + +| UA: Blood trace, leukocytes trace | 2022-02-13 || urine cx | |+ + +| Macrobid 100 mg BID x 7 days | 2022-02-13 || RTC if symptoms worsen or persist. | |+ + +| see plan above | 2022-02-13 |+ + +| Rx prednisone pack titrated | 2022-03-10 || Antihistamine (Claritin/Zyrtec for day time, Benadryl at night) and calamine | || lotion as needed to help for itching. | || Remind patient not to scratch area to prevent worsening of skin | |+ + +| Patient states she has a history of abnormal pap last year. | 2022-04-25 || Last 2018 pap in clinic was normal | || PAP/HPV | |+ + +| REFERRAL TO PSYCHOLOGIST | 2022-07-08 |+ + +| symptomatic treatment as discussed, oral prednisone. virtual audio visit only. | 2022-11-10 || recommend pt make in office appt with PCP for followup and for next rash | || outbreak | || rash could take several weeks to resolve | || RX for Prednisone 50 MG Tablet TAKE 1 TABLET DAILY | || RX for Clobetasol Propionate 0.05 % Ointment APPLY AND GENTLY MASSAGE INTO | || AFFECTED AREA(S) TWICE DAILY - sent for future outbreaks, do not use | || concurrently with PO steroids, DO NOT apply to face or neck areas | || Can try OTC antihistamine of choice PRN itching | || ED precautions | || RTO PRN | |+ + +| site healing, no red flag s/s | 2022-11-10 || discussed s/s infection, ED precautions | || provided work excuse | || RTO PRN | |+ + +| COVID FLU RSV | 2022-11-17 || Bromfed take as directed | || declined azithromycin | || | || | || | || If covid positive, isolate for 5 days and strict mask use 5 days later. | || Consider Paxlovid | |+ + +| COVID FLU RSV | 2022-11-17 |+ + +| COVID FLU RSV | 2022-11-17 |+ + +| COVID FLU RSV | 2022-11-17 |+ + +| Recommend healthy fruits and vegetables. | 2023-01-07 |+ + +| WET MOUNT | 2023-01-07 |+ + +| RTO for assessment | 2023-08-16 || Hypoallergenic soap | || May try tape method d/t concerns of worms | || Stool specimen | || Hemorrhoid cream OTC | |+ + +10143-3Yczd of TreatmentLNCARE PLANTXTSFA|[id number] for patient zzjcFgjpdhyVkfhrzxrbQEOWj23 Section NarrativeNARRATIVEFormatted C-CDA narrative textSCHRISTUS St. Vincent [facility]icians [facility] Centerxavier [facility]2024-04-21T00:00:00 [facility]
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
[2023-09-24 01:11] VITALS: BP 127/115; TEMP 98; O2SAT 100
== END 2023-09-24 00:53 | disposition home or self-care (01) ==
LOC: ER 23:44
DX: F10.229 Alcohol dependence with intoxication, unspecified (principal); F31.9 Bipolar disorder, unspecified
CPT/HCPCS: 99283

== ENCOUNTER 2023-10-29 14:05 | Emergency (ER) | payer OTHER ==
--- OUTSIDE RECORDS SUMMARY | 2023-10-29 14:17 | XMS REPORT | Continuity of Care Document ---
Author Name Unknown Address [address] [facility] [address] [place] [address] [facility] Address [address] [facility] [address] [place] [address] Care Team Providers Care Asset Management Analyst Name Role Phone PIOTR ROMERO Primary Care Physician UnavailYANICK Hanna Attending Clinician DR PIOTR Salinas Attending Clinician Unavailable [phone] Attending Clinician Unavailable [id number] Attending Clinician Unavailable YUN SAMS Attending Clinician UnavailYUN Bhatt Attending Clinician UnavailLAURIE Franco Attending Clinician Unavailable Azam Rooney MD Attending Clinician [phone] Laurie Bowen MD Attending Clinician [phone] CHASITY SALVADOR Attending Clinician Unavailable DAINN PONCE Attending Clinician Unavailable ELLIOT CAMEJO Attending Clinician Unavailable MAYNOR SAMUEL Attending Clinician Unavailable GUILHERME WILDER Attending Clinician Unavailable Guilherme Wilder MD Attending Clinician [phone] Doctor Unassigned, [place] Attending Clinician Cathie Shelton MD Attending Clinician [phone] RIVERA PINK Attending Clinician Unavailable CATHIE SUBRAMANIAN Attending Clinician UnavailRivera Bland Attending Clinician [phone] JESSE DONG Attending Clinician Unavailable ERICA KLINE Attending Clinician Unavailable RADIOLOGY Attending Clinician Unavailable Radiology Attending Clinician Unavailable TIMOTEO CISSE Attending Clinician Unavailable Timoteo May Attending Clinician [phone] Karen Burnett PA-C Attending Clinician [phone] KAREN BURNETT Attending Clinician Unavailable Jesse Dong MD Attending Clinician [phone] BRYN BRADLEY Attending Clinician Unavailab roberto STONE Attending Clinician Unavailable RENUKA NELSON Attending Clinician Un available CARL WORKMAN Attending Clinician Unavailable AMNA CLARK Attending Clinician Unavailable RUSTAM THRASHER Attending Clinician Unavailable ISRAEL PEREZ Attending Clinician Unavailable ISRAEL PEREZ Attending Clinician Unavailable LENNOX CABRERA Attending Clinician UnavailAZEB Green Attending Clinician UnavailNISH Cardozo Attending Clinician UnavailYANICK Ludwig Admitting Clinician DR PIOTR [place] Admitting Clinician Unavailable YUN SAMS Admitting Clinician UnavailLAURIE Franco Admitting Clinician Unavailable TIMOTEO CISSE Admitting Clinician Unavailable BERTHA Admitting Clinician Unavailable CARL WORKMAN Admitting Clinician Unavailable Payers Payer Name Policy Type Policy Number Effective Date Expirati on Date Source [facility] [id number] 00:00:00 [facility] [place] [facility] [id number] 00:00:00 [facility] [id number] 2023 00:00:00 [facility] JAILYN JOY COP FOCUS 9 [id number] 2023 00:00:00 [facility] DAVID FROM [facility] [id number] 2022 00:00:00 [facility] MEDICAID [id number] 2018 00:00:00 Problems Condition Name Condition Details Condition Category Status Onset Date Resolution Date Last Treatment Date Treating Clinician Comments Source Infection of hand due to bite Infection of hand due to bite Disease Active 18 00:00: 00 [facility] Gastroesop hageal reflux disease without esophagiti s Gastroesop hageal reflux disease without esophagiti s Disease Active 2018-04 00:00: 00 [facility] Abnormal maternal glucose tolerance, antepartum Abnormal maternal glucose tolerance, antepartum Disease Active 2018-04 1 00:00: 00 [facility] Underweigh [...] Propensi ty to adverse reaction s Active 07-15 00:00: 00 LEVY Jacinto - Externa l [place] - Intraven ous Propensi ty to adverse reaction to drug Active 10-18 00:00: 00 Azam Raphael Ziprasid one Mesylate Propensi ty to adverse reaction s Active Hallucinatio ns - 00:00: 00 [facility] Risperid one Propensi ty to adverse reaction s Active Hallucinatio ns 05-06 00:00: 00 [facility] ZIPRASID ONE MESYLATE DRUG INGREDI Active Hallucinates 05-06 00:00: 00 [facility] RISPERID ONE DRUG INGREDI Active Hallucinates 05-06 00:00: 00 [facility] NO KNOWN ALLERGIE S Drug Class Active [facility] No Known Allergie s MA Active UNKNOWN [place] Social History Social Habit Start Date Stop Date Quantity Comments Source Sexual orientation 2023-06-25 10:05:01 Heterosexual (finding) Amy Jacinto - External History of tobacco use 2001-10-22 00:00:00 Cigarette Smoker [facility] History SDOH Alcohol Std Drinks [facility] History SDOH Alcohol Binge [facility] History SDOH Alcohol Comment [place] [facility] Alcoholic beverage intake 2023-10-11 00:00:00 2023-10-11 00:00:00 0 /d [facility] Alcohol intake 2023-08-19 00:00:00 2023-08-19 00:00:00 0 /d [facility] History of Social function 2023-06-25 00:00:00 2023-06-25 00:00:00 Amy Jacinto - External Exposure to SARS-CoV-2 (event) 2022-04-20 00:00:00 2022-04-30 14:04:00 Not sure [facility] Cigarettes smoked current (pack per day) - Reported 2022-04-30 00:00:00 2022-04-30 00:00:00 [facility] Tobacco use and exposure 2022-04-30 00:00:00 2022-04-30 00:00:00 Smokeless tobacco non-user [facility] Tobacco Comment 2022-04-30 00:00:00 2022-04-30 00:00:00 Has too much stress to quit [facility] Cigarette pack-years 2022-04-30 00:00:00 2022-04-30 00:00:00 [facility] History SDOH Alcohol Frequency 2018-10-22 00:00:00 2018-10-22 00:00:00 1 [facility] Sex Assigned At 1990 00:00:00 1990 00:00:00 Yoni Jacinto - External Smoking Status Start Date Stop Date Source Tobacco smoking consumption unknown Amy Jacinto - Ext ernal Smokes tobacco daily 2022-04-30 00:00:00 [facility] Medications Ordered Medication Name Filled Medication Name Start Date Stop Date Current Medication? Ordering Clinician Indication Dosage Frequency Signature (SIG) Comments Components Source budesonide- formoteroL 80-4.5 mcg/actuati on inhaler 10-10 00:00: 00 Yes [id number] 2{puff} Inhale 2 Puffs in the morning and 2 Puffs in the evening. [facility] predniSONE 20 mg tablet 10-10 00:00: 00 10-18 04:59 :00 Yes [id number] 20mg Take 1 tablet by mouth in the morning for 7 days. [facility] ketorolac (TORADOL) injection 30 mg 08-19 05:00: [...] mg EC tablet 08-19 00:00: 00 Yes [id number] 75mg Take 1 tablet by mouth in the morning and 1 tablet in the evening. Take with meals. [facility] hydroxyzine HCl 10 mg tablet - 00:00: 00 Yes mg Azam Raphael hydrOXYzine HCl 10 MG oral Tablet - 00:00: 00 08-05 04:59 :00 No [id number] 10mg [id number] 3D Take 1 tablet (10 mg total) by mouth 3 times daily as needed for anxiety for up to 20 days. Amy Jacinto - Externa l Mirtazapine 7.5 MG oral Tablet 00:00: 00 Yes [id number] 7.5mg Take 1 tablet (7.5 mg total) by mouth nightly. Amy Jacinto - Externa l 10 ML Q 4 TO 6 HOURS PRN COUGH FOR 5 DAYS 2022-04 00:00: 00 08-18 00:00 :00 No [id number] Azam Raphael ibuprofen (IBU) tablet 800 mg 2022-04 10:30: 00 03-03 09:33 :00 No 800mg 800 mg, Oral, ONCE, 1 dose, On Thu03/03/23 at 0430, Routine [facility] ibuprofen 800 mg tablet 2022-04 00:00: 00 Yes [id number] 800mg Take 1 tablet by mouth every 8 (eight) hours as needed for Alternate with [place] for pain scale 1-3. [facility] KETOROLAC 10MG 2022-04 0-31 00:00: 00 Yes [...] 00 Yes Azam Raphael CYCLOBENZAP R 5MG 01-14 00:00: 00 Yes Azam Raphael DICLOFEN SOD 50MG EC 01-14 00:00: 00 Yes Azam Raphael 1 CAPSULE TWICE A DAY 01-09 00:00: 00 08-18 00:00 :00 No 300 Azam Raphael 1 CAPSULE TWICE A DAY 01-08 00:00: 00 08-18 00:00 :00 No 300 Azam Raphael PREDNISONE 50MG 8- 00:00: 00 Yes Azam Raphael PREDNISONE 50 MG - 00:00: 00 Yes 50 Azam Raphael PAXLOVID [id number] [id number] 7-24 00:00: 00 Yes Azam Raphael 10 ML Q 4 TO 6 HOURS PRN COUGH FOR 5 DAYS 11-17 00:00: 00 08-18 00:00 :00 No [id number] Azam Raphael 300 MG NIRMATRELVI R (TWO [...] 00 08-18 00:00 :00 No 5 Azam Yoni Raphael METHYLPRED 10-20 00:00: 00 Yes Azam Raphael TAKE 1 TABLET BY MOUTH TWICE DAILY UNTIL ALL TAKEN 10-20 00:00: 00 Yes 500 Azam Yoni Donavon APPLY DIRECTED. 10-20 00:00: 00 08-18 00:00 :00 No 2 Azam Raphael FOLLOW DIRECTIONS ON PACKAGE 2022-0 6-26 00:00: 00 08-18 00:00 :00 No 4 Azam Raphael BUSPIRONE 2022-0 6-07 00:00: 00 Yes Azam Raphael QUETIAPINE 2022-0 6-07 00:00: 00 Yes 25 Azam Raphael TAKE 1 TABLET BY MOUTH AT BEDTIME 2022-0 5- 00:00: 00 Yes Azam Raphael TAKE 1 TABLET BY MOUTH TWICE DAILY 0 5- 00:00: 00 Yes Azam Raphael OLANZAPINE 2022-0 4- 00:00: 00 Yes 15 Azam Raphael OLANZAPINE 2022-0 3-02 00:00: 00 Yes 15 Azam Raphael OLANZAPINE 0 2-06 00:00: 00 Yes Azam Raphael TAKE 1 TABLET BY MOUTH TWICE DAILY 0 2-06 00:00: 00 Yes Azam Raphael METRONIDAZO L 0 1-17 00:00: 00 Yes Azam Raphael TAKE 1 CAPSULE BY MOUTH TWICE DAILY 0 1-12 00:00: 00 08-18 00:00 :00 No Azam Raphael No known medications 0 1-04 14:13: 57 No No known medication [facility] METRONIDAZO L 0 1-04 00:00: 00 Yes Azam Raphael BUSPIRONE 2021-04 1-11 00:00: 00 Yes Azam Raphael PREDNISONE 2021-04 1-09 00:00: 00 Yes Azam Raphael Dose Unknown 2021-04 0-27 00:00: 00 Yes Azam Raphael TAKE 1 CAPSULE BY MOUTH TWICE DAILY 1 0-27 00:00: 00 No TAKE 1 TABLET BY MOUTH EVERY 8 HOURS WITH FOOD AND DRINK PLENTY OF WATER FOR PAIN 2021-0 9-13 00:00: 00 No TAKE 1 TABLET BY MOUTH EVERY 8 HOURS WITH FOOD AND DRINK PLENTY OF WATER FOR PAIN 2021-0 01-07 00:00: 00 No TAKE 1 TABLET BY MOUTH EVERY 8 HOURS WITH FOOD AND DRINK PLENTY OF WATER FOR PAIN 2021-0 01-07 00:00: 00 08-18 00:00 :00 No Azam Raphael BUSPIRONE TAB 15MG 2022-0 8-29 00:00: 00 Yes Azam Raphael BUSPIRONE TAB 15MG 2022-0 8-29 00:00: 00 No BUSPIRONE TAB 15MG 2022-0 8-29 00:00: 00 No QUETIAPINE TAB 25MG 2022-0 8-22 00:00: 00 Yes Azam Raphael QUETIAPINE TAB 25MG 2022-0 8-22 00:00: 00 No QUETIAPINE TAB 25MG 2022-0 8-22 00:00: 00 No Dose Unknown 2022-0 8-09 00:00: 00 Yes Azam Raphael Dose Unknown 2022-0 8-09 00:00: 00 No Dose Unknown 2022-0 8-09 00:00: 00 No Dose Unknown 2022-0 7-08 00:00: 00 Yes Azam Raphael Dose Unknown 2022-0 7-08 00:00: 00 Yes Azam Raphael Dose Unknown 2022-0 7-08 00:00: 00 No Dose Unknown 2022-0 7-08 00:00: 00 No Dose Unknown 2022-0 7-08 00:00: 00 No Dose Unknown 2022-0 7-08 00:00: 00 No Dose Unknown 2022-0 7-06 00:00: 00 Yes Azam Raphael Dose Unknown 2022-0 7-06 00:00: 00 Yes Azam Raphael Dose Unknown 2022-0 7-06 00:00: 00 Yes Azam Raphael Dose Unknown 2022-0 7-06 00:00: 00 No Dose Unknown 2022-0 7-06 00:00: 00 No Dose Unknown 2022-0 7-06 00:00: 00 No Dose Unknown 2022-0 7-06 00:00: 00 No Dose Unknown 2022-0 7-06 00:00: 00 No Dose Unknown 2022-0 7-06 00:00: 00 No Dose Unknown 2022-0 7-06 00:00: 00 No Dose Unknown 2022-0 7-06 00:00: 00 No Dose Unknown 2022-0 7-06 00:00: 00 No iopamidol (ISOVUE 370-500 mL) injection 80 mL 2022-0 6-30 14:15: 00 -30 13:09 :00 No [id number] 80mL 80 mL, Intravenou s, ONCE, 1 dose, On Kya 10/24/21 at 0915, Routine [facility] ibuprofen 600 mg tablet 10-18 00:00: 00 Yes 1mg Azam Raphael amoxicillin 500 mg capsule 10-18 00:00: 00 Yes 1mg Azam Raphael ibuprofen 600 mg tablet 10-18 00:00: 00 [...] Push, ONCE, 1 dose, On Thu09/23/21 at 1530, JENNIFER
Fa culty member approving Restricted medication : TIMOTEO CISSE [facility] iopamidol (ISOVUE 370-500 mL) injection 100 mL 09-23 20:00: 00 09-23 20:15 :00 No [id number] 100mL 100 mL, Intravenou s, ONCE, 1 [...] 08-19 00:00: 00 Yes 1mg Azam Raphael metronidazo le 500 mg tablet 2022-0 4-25 00:00: 00 No 1mg metronidazo le 500 mg tablet 0 4-25 00:00: 00 No 1mg metronidazo le 500 mg tablet 0 425 00:00: 00 No 1mg Dose Unknown 0 4- 00:00: 00 Yes Azam Raphael Dose Unknown 0 4- 00:00: 00 No Dose Unknown 0 4- 00:00: 00 No Dose Unknown 0 4- 00:00: 00 No ProAir HFA 90 mcg/actuati on aerosol inhaler 0 4- 00:00: 00 Yes 1mcg/ac tuation Azam Raphael Ventolin HFA 90 mcg/actuati on aerosol inhaler 0 4- 00:00: 00 Yes 12mcg/a ctuatio n Azam Raphael HYDROXYZ HCL 0 4-13 00:00: 00 Yes 25 Azam Raphael ProAir HFA 90 mcg/actuati on [...] 4-13 00:00: 00 No 12mcg/a ctuatio n Xopenex HFA 45 mcg/actuati on aerosol inhaler 0 3-21 00:00: 00 Yes 1mcg/ac tuation Azam Yoni Donavon sulfamethox azole 800 mg-trimetho prim 160 mg tablet 0 3-21 00:00: 00 Yes 1mg Azam Raphael amoxicillin 875 mg-potassiu m clavulanate 125 mg tablet 2021-0 3-21 00:00: 00 Yes 1mg Azam Raphael ibuprofen 600 mg tablet 0 3-21 00:00: 00 Yes 1mg Azam Raphael Dose Unknown 0 3-21 00:00: 00 Yes Azam Raphael Dose Unknown 0 3-21 00:00: 00 Yes Azam Raphael Xopenex HFA 45 mcg/actuati on aerosol inhaler 0 3-21 00:00: 00 No 1mcg/ac tuation sulfamethox azole 800 mg-trimetho prim 160 mg tablet 0 3-21 00:00: 00 No 1mg amoxicillin 875 mg-potassiu m clavulanate 125 mg tablet 0 3- 00:00: 00 No 1mg ibuprofen 600 mg [...] mg-potassiu m clavulanate 125 mg tablet 0 321 00:00: 00 No 1mg ibuprofen 600 mg [...] 3-21 00:00: 00 No Dose Unknown 2021-0 3-18 00:00: 00 Yes Azam Raphael Dose Unknown 2021-0 3-18 00:00: 00 Yes Azam Raphael Dose Unknown 2021-0 3-18 00:00: 00 No Dose Unknown 2022-0 [...] 00 Yes Azam Raphael Dose Unknown 2-0 3-13 00:00: 00 Yes Azam Raphael Dose Unknown 2022-0 3-13 00:00: 00 No Dose Unknown 2022-0 3-13 00:00: 00 No Dose Unknown 2-0 3-13 00:00: 00 No Dose Unknown 2-0 3-13 00:00: 00 No HYDROXYZ HCL 2-0 2-28 00:00: 00 Yes 25 Azam Raphael QUETIAPINE 2-0 2-28 00:00: 00 Yes 25 Azam Raphael Zyprexa 5 mg tablet 2021-0 2-17 00:00: 00 Yes 1mg Azam Raphael Zyprexa 5 mg tablet 2021-0 2-17 00:00: 00 No 1mg Zyprexa 5 mg tablet 2-0 2-17 00:00: 00 No 1mg buspirone 15 mg tablet 2-0 2-11 00:00: 00 Yes 1mg Azam Raphael buspirone 15 mg tablet 2-0 2-11 00:00: 00 No 1mg buspirone 15 mg tablet 2-0 2-11 00:00: 00 No 1mg ProAir HFA 90 mcg/actuati on aerosol inhaler 2020-1 0-18 00:00: 00 Yes 2mcg/ac tuation Azam [...] 00:00: 00 Yes 2mcg/ac tuation Azam Raphael ProAir HFA 90 mcg/actuati on [...] 00:00: 00 Yes 10mg/5 mL Azam Raphael Zithromax 250 mg tablet 2020-04 [...] 2020-04 0-06 00:00: 00 No 10mg/5 mL Protonix 40 mg tablet,dung yed release 3- 00:00: 00 Yes 1mg zAam Raphael hydroxyzine HCl 25 mg tablet 3- 00:00: 00 Yes 1mg Azam Raphael hydroxyzine HCl 25 mg tablet 3- 00:00: 00 No 1mg Protonix 40 mg tablet,dung yed release 3- 00:00: 00 No 1mg hydroxyzine HCl 25 mg tablet 3- 00:00: 00 No 1mg Protonix 40 mg tablet,dung yed release 3- 00:00: 00 No 1mg Protonix 40 mg tablet,dung yed release 3- 00:00: 00 Yes 1mg Azam Raphael hydroxyzine HCl 25 mg tablet 3- 00:00: 00 Yes 1mg Azam Raphael Protonix 40 mg tablet,dung yed release 3- 00:00: 00 No 1mg hydroxyzine HCl 25 mg tablet 3- 00:00: 00 No 1mg Protonix 40 mg tablet,dung yed release 3- 00:00: 00 No 1mg hydroxyzine HCl 25 mg tablet 3- 00:00: 00 No 1mg No known medications 05-23 18:00: 03 No [facility] methylpredn isolone 4 mg tablets in a dose pack 2019-04 00:00: 00 Yes mg Azam Raphael methylpredn isolone 4 mg tablets in a dose pack 2019-04 00:00: 00 No mg methylpredn isolone 4 mg tablets in a dose pack 2019-04 00:00: 00 No mg Flagyl 500 mg tablet 2019-04 00:00: 00 Yes 1mg Azam Raphael Flagyl 500 mg tablet 2019-04 00:00: 00 No 1mg Flagyl 500 mg tablet 2019-04 00:00: 00 No 1mg NUVARING 0.12-0.015 mg/24 hr vaginal insert -16 00:00: 00 05-23 00:00 :00 No 1{each} Insert 1 Each into vagina once every month. Insert vaginally and leave in place for 3 consecutiv e weeks, then remove for 1 week. [facility] busPIRone 15 mg tablet 2018-04 00:00: 00 05-23 00:00 :00 No [id number] 15mg Take 1 tablet by mouth 2 (two) times daily. [facility] vitamin w/FA tablet 2018-04 00:00: 00 05-23 00:00 :00 No [id number] 1{tbl} Take 1 tablet by mouth daily. [facility] docusate calcium 240 mg capsule 2018-04 00:00: 00 05-23 00:00 :00 No [id number] 240mg Take 1 capsule by mouth once daily as needed for Constipati on. [facility] ferrous sulfate 325 mg (65 mg iron) tablet 2018-04 00:00: 00 05-23 00:00 :00 No [id number] 325mg Take 1 tablet by mouth 2 (two) times daily. [facility] ibuprofen 600 mg tablet 2018-04 00:00: 00 05-23 00:00 :00 No [id number] 600mg Take 1 tablet by mouth every 6 (six) hours as needed (Pain). Take with food or milk. [facility] Immunizations Ordered Immunization Name Filled Immunization Name Date Status Comments Source TDAP (ADACEL) VACCINE 2019-03-10 00:00:00 Completed [facility] TDAP (ADACEL) VACCINE 2019-03-10 00:00:00 Completed [facility] TDAP (ADACEL) VACCINE 2019-03-10 00:00:00 Completed [facility] TDAP (ADACEL) VACCINE 2019-03-10 00:00:00 Completed [facility] TDAP (ADACEL) VACCINE 2019-03-10 00:00:00 Completed [facility] TDAP (ADACEL) VACCINE 2019-03-10 00:00:00 Completed [facility] TDAP (ADACEL) VACCINE 2019-03-10 00:00:00 Completed [facility] TDAP (ADACEL) VACCINE 2019-03-10 00:00:00 Completed [facility] TDAP (ADACEL) VACCINE 2019-03-10 00:00:00 Completed [facility] TDAP (ADACEL) VACCINE 2019-03-10 00:00:00 Completed [facility] TDAP (ADACEL) VACCINE 2019-03-10 00:00:00 Completed [facility] TDAP (ADACEL) VACCINE 2019-03-10 00:00:00 Completed [facility] TDAP (ADACEL) VACCINE 2019-03-10 00:00:00 Completed [facility] TDAP (ADACEL) VACCINE 2019-03-10 00:00:00 Completed [facility] TDAP (ADACEL) VACCINE 2019-03-10 00:00:00 Completed [facility] Tdap Tdap 2019-03-10 00:00:00 Completed Azam Raphael MMR 2012-11-22 00:00:00 Completed [facility] MMR 2012-11-22 00:00:00 Completed [facility] MMR 2012-11-22 00:00:00 Completed [facility] MMR 2012-11-22 00:00:00 Completed [facility] MMR 2012-11-22 00:00:00 Completed [facility] MMR 2012-11-22 00:00:00 Completed [facility] MMR 2012-11-22 00:00:00 Completed [facility] MMR 2012-11-22 00:00:00 Completed [facility] MMR 2012-11-22 00:00:00 Completed [facility] MMR 2012-11-22 00:00:00 Completed [facility] MMR 2012-11-22 00:00:00 Completed [facility] MMR 2012-11-22 00:00:00 Completed [facility] MMR 2012-11-22 00:00:00 Completed [facility] MMR 2012-11-22 00:00:00 Completed [facility] MMR 2012-11-22 00:00:00 Completed [facility] Hep B, adult Hep B, adult 2012-11-22 00:00:00 Completed Azam Raphael MMR MMR 2012-11-22 00:00:00 Completed Azam Raphael HEPATITIS A 2012-10-19 00:00:00 Completed [facility] MMR 2012-10-19 00:00:00 Completed [facility] HEPATITIS A 2012-10-19 00:00:00 Completed [facility] MMR 2012-10-19 00:00:00 Completed [facility] HEPATITIS A 2012-10-19 00:00:00 Completed [facility] MMR 2012-10-19 00:00:00 Completed [facility] HEPATITIS A 2012-10-19 00:00:00 Completed [facility] MMR 2012-10-19 00:00:00 Completed [facility] HEPATITIS A 2012-10-19 00:00:00 Completed [facility] MMR 2012-10-19 00:00:00 Completed [facility] HEPATITIS A 2012-10-19 00:00:00 Completed [facility] MMR 2012-10-19 00:00:00 Completed [facility] HEPATITIS A 2012-10-19 00:00:00 Completed [facility] MMR 2012-10-19 00:00:00 Completed [facility] HEPATITIS A 2012-10-19 00:00:00 Completed [facility] MMR 2012-10-19 00:00:00 Completed [facility] HEPATITIS A 2012-10-19 00:00:00 Completed [facility] MMR 2012-10-19 00:00:00 Completed [facility] HEPATITIS A 2012-10-19 00:00:00 Completed [facility] MMR 2012-10-19 00:00:00 Completed [facility] HEPATITIS A 2012-10-19 00:00:00 Completed [facility] MMR 2012-10-19 00:00:00 Completed [facility] HEPATITIS A 2012-10-19 00:00:00 Completed [facility] MMR 2012-10-19 00:00:00 Completed [facility] HEPATITIS A 2012-10-19 00:00:00 Completed [facility] MMR 2012-10-19 00:00:00 Completed [facility] HEPATITIS A 2012-10-19 00:00:00 Completed [facility] MMR 2012-10-19 00:00:00 Completed [facility] HEPATITIS A 2012-10-19 00:00:00 Completed [facility] MMR 2012-10-19 00:00:00 Completed [facility] Hep A, adult Hep A, adult 2012-10-19 00:00:00 Completed Azam Raphael Hep B, adult Hep B, adult 2012-10-19 00:00:00 Completed Azam Raphael Tdap Tdap 2012-10-19 00:00:00 Completed Azam Raphael MMR MMR 2012-10-19 00:00:00 Completed Azam Raphael TDAP (ADACEL) VACCINE Unknown Completed [facility] HEPATITIS A Unknown [facility] MMR Unknown Completed [facility] MMR Unknown Completed [facility] TDAP (ADACEL) VACCINE Unknown Completed [facility] HEPATITIS A Unknown Completed [facility] MMR Unknown Completed [facility] MMR Unknown Completed [facility] TDAP (ADACEL) VACCINE Unknown Completed [facility] HEPATITIS A Unknown Completed [facility] MMR Unknown Completed [facility] MMR Unknown Completed [facility] TDAP (ADACEL) VACCINE Unknown Completed [facility] HEPATITIS A Unknown Completed [facility] MMR Unknown Completed [facility] MMR Unknown Completed [facility] TDAP (ADACEL) VACCINE Unknown Completed [facility] HEPATITIS A Unknown Completed [facility] MMR Unknown Completed [facility] MMR Unknown Completed [facility] TDAP (ADACEL) VACCINE Unknown Completed [facility] HEPATITIS A Unknown Completed [facility] MMR Unknown Completed [facility] MMR Unknown Completed [facility] TDAP (ADACEL) VACCINE Unknown Completed [facility] HEPATITIS A Unknown Completed [facility] MMR Unknown Completed [facility] MMR Unknown Completed [facility] TDAP (ADACEL) VACCINE Unknown Completed [facility] HEPATITIS A Unknown Completed [facility] MMR Unknown Completed [facility] MMR Unknown Completed [facility] TDAP (ADACEL) VACCINE Unknown Completed [facility] HEPATITIS A Unknown Completed [facility] MMR Unknown Completed [facility] MMR Unknown Completed [facility] TDAP Unknown Completed [facility] TDAP (ADACEL) VACCINE Unknown Completed [facility] HEPATITIS A Unknown Completed [facility] MMR Unknown Completed [facility] MMR Unknown Completed [facility] TDAP Unknown Completed [facility] Vital Signs Vital Name Observation Time Observation Value Comments S ource Respiratory Rate 2023-10-27 23:19:00 18 /min Body Temperature 2023-10-27 23:19:00 36.9 Diya Systolic Blood Pressure 2023-10-27 23:19:00 128 mm[Hg] Diastolic Blood Pressure 2023-10-27 23:19:00 63 mm[Hg] Oxygen Saturation 2023-10-27 23:19:00 98 % Heart Rate 2023-10-27 23:19:00 105.0 /min Heart Rate 2023-10-27 00:19:00 86.0 /min Respiratory Rate 2023-10-27 00:19:00 16 /min Body Temperature 2023-10-27 00:19:00 36.9 Diya Systolic Blood Pressure 2023-10-27 00:19:00 109 mm[Hg] Diastolic Blood Pressure 2023-10-27 00:19:00 63 mm[Hg] Oxygen Saturation 2023-10-27 00:19:00 100 % Respiratory Rate 2023-10-27 23:19:00 18 /min Body Temperature 2023-10-27 23:19:00 36.9 Diya Systolic Blood Pressure 2023-10-27 23:19:00 128 mm[Hg] Diastolic Blood Pressure 2023-10-27 23:19:00 63 mm[Hg] Oxygen Saturation 2023-10-27 23:19:00 98 % Heart Rate 2023-10-27 23:19:00 105.0 /min Heart Rate 2023-10-27 00:19:00 86.0 /min Respiratory Rate 2023-10-27 00:19:00 16 /min Body Temperature 2023-10-27 00:19:00 36.9 Diya Systolic Blood Pressure 2023-10-27 00:19:00 109 mm[Hg] Diastolic Blood Pressure 2023-10-27 00:19:00 63 mm[Hg] Oxygen Saturation 2023-10-27 00:19:00 100 % Systolic blood pressure 2023-10-11 20:58:00 115 mm[Hg] [facility] Diastolic blood pressure 2023-10-11 20:58:00 89 mm[Hg] [facility] Heart rate 2023-10-11 20:58:00 81 /min [facility] Body temperature 2023-10-11 20:58:00 37.11 Diya [facility] Respiratory rate 2023-10-11 20:58:00 18 /min [facility] Oxygen saturation in Arterial blood by Pulse oximetry 2023-10-11 20:58:00 100 /min [facility] Body height 2023-10-11 17:28:00 167.6 cm [facility] Body weight 2023-10-11 17:28:00 42.638 kg [facility] BMI 2023-10-11 17:28:00 15.17 kg/m2 [facility] Heart rate 2023-08-20 05:00:00 100 /min [facility] Respiratory rate 2023-08-20 05:00:00 20 /min [facility] Oxygen saturation in Arterial blood by Pulse oximetry 2023-08-20 05:00:00 99 /min [facility] Systolic blood pressure 2023-08-20 04:10:00 133 mm[Hg] [facility] Diastolic blood pressure 2023-08-20 04:10:00 102 mm[Hg] [facility] Body height 2023-08-20 04:10:00 165.1 cm [facility] Body weight 2023-08-20 04:10:00 44.453 kg [facility] BMI 2023-08-20 04:10:00 16.31 kg/m2 [facility] Systolic blood pressure 2023-03-03 08:53:00 113 mm[Hg] [facility] Diastolic blood pressure 2023-03-03 08:53:00 91 mm[Hg] [facility] Heart rate 2023-03-03 08:53:00 93 /min [facility] Body temperature 2023-03-03 08:53:00 37.11 Diya [facility] Respiratory rate 2023-03-03 08:53:00 20 /min [facility] Body height 2023-03-03 08:53:00 165.1 cm [facility] Body weight 2023-03-03 08:53:00 45.36 kg [facility] BMI 2023-03-03 08:53:00 16.64 kg/m2 [facility] Oxygen saturation in Arterial blood by Pulse oximetry 2023-03-03 08:53:00 100 /min [facility] Systolic blood pressure 2022-04-30 20:12:00 148 mm[Hg] pt on the phone [facility] Diastolic blood pressure 2022-04-30 20:12:00 103 mm[Hg] pt on the phone [facility] Heart rate 2022-04-30 20:12:00 108 /min [facility] Systolic blood pressure 2021-09-23 23:07:54 117 mm[Hg] [facility] Diastolic blood pressure 2021-09-23 23:07:54 80 mm[Hg] [facility] Heart rate 2021-09-23 23:07:54 78 /min [facility] Respiratory rate 2021-09-23 23:07:54 18 /min [facility] Oxygen saturation in Arterial blood by Pulse oximetry 2021-09-23 23:07:54 98 /min [facility] Body temperature 2021-09-23 18:10:00 36.94 Diya [facility] Body height 2021-09-23 18:10:00 165.1 cm [facility] Body weight 2021-09-23 18:10:00 49.896 kg [facility] BMI 2021-09-23 18:10:00 18.30 kg/m2 [facility] BP Systolic 2023-08-19 15:48:00 120 mm[Hg] Azam Raphael BP Diastolic 2023-08-19 15:48:00 79 mm[Hg] Azam Raphael Weight Measured 2023-08-19 15:48:00 99.00 pounds Azam Raphael Height Measured 2023-08-19 15:48:00 65.00 inches Azam Raphael Body Temperature 2023-08-19 15:48:00 98.10 degrees Azam Raphael Heart Rate 2023-08-19 15:48:00 100.00 /min Azam Raphael Respiratory Rate 2023-08-19 15:48:00 19.00 /min Azam Raphael BP Systolic 2023-08-14 10:24:00 123 mm[Hg] Azam [...] Respiratory Rate 2022-04-25 10:09:00 18.00 /min Azam Raphael BP Systolic 2022-03-05 09:57:00 Azam Yoni Raphael BP Diastolic 2022-03-05 09:57:00 Azam Raphael Weight Measured 2022-03-05 09:57:00 Azamaxel Raphael Height Measured 2022-03-05 09:57:00 Azam Raphael Body Temperature 2022-03-05 09:57:00 Azam Raphael Heart Rate 2022-03-05 09:57:00 Azam Raphael Respiratory Rate 2022-03-05 09:57:00 Azam Raphael BP Systolic 2022-02-13 14:00:00 119 mm[Hg] Azam F Donavon BP Diastolic 2022-02-13 14:00:00 84 mm[Hg] Azam Raphael Weight Measured 2022-02-13 14:00:00 121.60 pounds Azam Raphael Height Measured 2022-02-13 14:00:00 65.00 inches Azam Raphael Body Temperature 2022-02-13 14:00:00 97.80 degrees Azam Raphael Heart Rate 2022-02-13 14:00:00 81.00 /min Azam Raphael Respiratory Rate 2022-02-13 14:00:00 Azam Raphael BP Systolic 2021-10-30 14:47:00 121 mm[Hg] Azam Raphael BP Diastolic 2021-10-30 14:47:00 84 mm[Hg] Azam Raphael Weight Measured 2021-10-30 14:47:00 112.40 pounds Azam Raphael Height Measured 2021-10-30 14:47:00 65.00 inches Azam Raphael Body Temperature 2021-10-30 14:47:00 98.10 degrees Azam Raphael Heart Rate 2021-10-30 14:47:00 86.00 /min Azam Raphael Respiratory Rate 2021-10-30 14:47:00 Azam Raphael BP Systolic 2021-10-18 13:35:00 BP Diastolic 2021-10-18 [...] / Time Performed Performing Clinician Source XR CHEST 2 VW 2023-10-11 18:21:26 Yun Sams [facility] CT CERVICAL SPINE WO CONTRAST 2023-10-11 18:17:39 Yun Sams [facility] CT HEAD WO CONTRAST 2023-10-11 18:14:53 Yun Sams [facility] XR HAND 3+ VW RIGHT 2023-08-20 04:38:41 Renata Bowen [facility] POCT TEST 2023-08-20 04:37:00 Renata Bowen [facility] ETHANOL 2023-08-20 04:36:00 Laurie Bowen [facility] NOTICE OF PRIVACY PRACTICES 2023-03-03 08:39:15 Doctor Unassigned, [place] [facility] CONSENT/REFUSAL FOR DIAGNOSIS AND TREATMENT 2023-03-03 08:36:34 Doctor Unassigned, [place] [facility] EXTERNAL PROVIDER RECORDS 2022-07-01 06:01:00 Doctor Unassigned, [place] [facility] AUTHORIZATION FOR RELEASE OF PHI 2021-11-25 05:01:00 Doctor Unassigned, [place] [facility] REFERRAL- REQUEST/RESPONSE 2021-11-11 05:01:00 Doctor Unassigned, [place] [facility] US PELVIS COMPLETE WITH TRANSVAGINAL 2021-10-24 13:17:52 Requisition, Paper [facility] CT THORAX W CONTRAST 2021-10-24 13:08:26 Requisition, Paper [facility] CT THORAX WO CONTRAST 2021-10-24 13:08:08 Requisition, Paper [facility] US PELVIS COMPLETE WITH TRANSVAGINAL 2021-09-23 22:52:01 Timoteo Cisse [facility] CT ABDOMEN PELVIS W CONTRAST 2021-09-23 20:02:13 Timoteo Cisse [facility] COMP. METABOLIC PANEL (59183) 2021-09-23 19:12:00 Timoteo Cisse [facility] CBC WITH DIFF 2021-09-23 19:12:00 [facility] POCT TEST 2021-09-23 18:47:00 Timoteo Cisse [facility] URINALYSIS 2021-09-23 18:41:00 Timoteo Cisse [facility] NOTICE OF PRIVACY PRACTICES 2021-09-23 17:59:15 Doctor Unassigned, [place] [facility] CONSENT/REFUSAL FOR DIAGNOSIS AND TREATMENT 2021-09-23 17:59:01 Doctor Unassigned, [place] [facility] [address] Colposcopy Cervix Bx Cervix endocrv Curtg 2021-08-29 00:00:00 Azam Raphael Therapeutic, prophylactic, or diagnostic injection; intravenous push, sing [facility] Therapeutic, prophylactic, or diagnostic injection; each additional sequen [facility] Plan of Care Planned Activity Planned Date Details Comments Source Goal Plan of Care Note [code = 82528-4] Goal Plan of Care Note [code = 73334-1] Goal Plan of Care Note [code = 26659-4] Goal Plan of Care Note [code = 12950-4] Goal Plan of Care Note [code = 47145-6] Goal Plan of Care Note [code = 09631-0] Goal Plan of Care Note [code = 64178-1] Goal Plan of Care Note [code = 32458-8] Goal Plan of Care Note [code = 83613-0] Goal Plan of Care Note [code = 93967-5] Goal Plan of Care Note [code = 18806-6] Goal Plan of Care Note [code = 22801-8] Goal Plan of Care Note [code = 64566-2] Goal Plan of Care Note [code = 96263-5] Goal Plan of Care Note [code = 07205-3] Goal Plan of Care Note [code = 06933-5] Goal Plan of Care Note [code = 94704-6] Goal Plan of Care Note [code = 16378-1] Goal Plan of Care Note [code = 08755-1] Goal Plan of Care Note [code = 63330-6] Goal Plan of Care Note [code = 96148-5] Goal Plan of Care Note [code = 91783-2] Goal Plan of Care Note [code = 43306-6] Goal Plan of Care Note [code = 27935-4] Goal Plan of Care Note [code = 26137-3] Goal Plan of Care Note [code = 14810-0] Goal Plan of Care Note [code = 20943-6] Goal Plan of Care Note [code = 91019-9] Goal Plan of Care Note [code = 31693-7] Goal Plan of Care Note [code = 17622-9] Goal Plan of Care Note [code = 88479-4] Goal Plan of Care Note [code = 11177-1] Goal Plan of Care Note [code = 61827-1] Goal Plan of Care Note [code = 62927-4] Goal Plan of Care Note [code = 93438-1] Goal Plan of Care Note [code = 26146-2] Goal Plan of Care Note [code = 78238-4] Goal Plan of Care Note [code = 73135-4] Goal Plan of Care Note [code = 21169-7] Goal Plan of Care Note [code = 71766-8] Goal Plan of Care Note [code = 00920-4] Goal Plan of Care Note [code = 14782-1] Goal Plan of Care Note [code = 15330-2] Goal Plan of Care Note [code = 22873-0] Goal Plan of Care Note [code = 68865-9] Goal Plan of Care Note [code = 69252-0] Goal Plan of Care Note [code = 36133-6] Goal Plan of Care Note [code = 06460-5] Goal Plan of Care Note [code = 71720-1] Goal Plan of Care Note [code = 26272-0] Goal Plan of Care Note [code = 69457-7] Goal Plan of Care Note [code = 93374-0] Goal Plan of Care Note [code = 87910-2] Goal Plan of Care Note [code = 35058-3] Goal Plan of Care Note [code = 05564-7] Goal Plan of Care Note [code = 06412-5] Goal Plan of Care Note [code = 12239-3] Goal Plan of Care Note [code = 19858-2] Goal Plan of Care Note [code = 18216-9] Goal Plan of Care Note [code = 00564-0] Goal Plan of Care Note [code = 10959-8] Goal Plan of Care Note [code = 57653-0] Goal Plan of Care Note [code = 57910-0] Goal Plan of Care Note [code = 59090-2] Goal Plan of Care Note [code = 17565-6] Goal Plan of Care Note [code = 32301-1] Goal Plan of Care Note [code = 48118-7] Goal Plan of Care Note [code = 53148-6] Goal Plan of Care Note [code = 83041-3] Goal Plan of Care Note [code = 19224-8] Goal Plan of Care Note [code = 34760-1] Goal Plan of Care Note [code = 56267-7] Goal Plan of Care Note [code = 81543-2] Goal Plan of Care Note [code = 12070-5] Goal Plan of Care Note [code = 89158-3] Goal Plan of Care Note [code = 89239-7] Goal Plan of Care Note [code = 56483-3] Goal Plan of Care Note [code = 87418-7] Goal Plan of Care Note [code = 98857-4] Goal Plan of Care Note [code = 72300-3] Goal Plan of Care Note [code = 71767-9] Goal Plan of Care Note [code = 24162-6] Goal Plan of Care Note [code = 51194-8] Goal Plan of Care Note [code = 91562-9] Goal Plan of Care Note [code = 90230-1] Goal Plan of Care Note [code = 24184-5] Goal Plan of Care Note [code = 98340-7] Goal Plan of Care Note [code = 21557-5] Goal Plan of Care Note [code = 15041-9] Goal Plan of Care Note [code = 01205-2] Goal Plan of Care Note [code = 41285-4] Goal Plan of Care Note [code = 86214-2] Goal Plan of Care Note [code = 09986-9] Goal Plan of Care Note [code = 63557-0] Goal Plan of Care Note [code = 71182-1] Goal Plan of Care Note [code = 74316-8] Goal Plan of Care Note [code = 08978-5] Goal Plan of Care Note [code = 13254-8] Goal Plan of Care Note [code = 06483-3] Goal Plan of Care Note [code = 24424-1] Goal Plan of Care Note [code = 61294-9] Goal Plan of Care Note [code = 11879-6] Goal Plan of Care Note [code = 69121-8] Goal Plan of Care Note [code = 03098-5] Goal Plan of Care Note [code = 93273-6] Goal Plan of Care Note [code = 51006-1] Goal Plan of Care Note [code = 06371-4] Goal Plan of Care Note [code = 94116-9] Goal Plan of Care Note [code = 41150-5] Goal Plan of Care Note [code = 02074-3] Goal Plan of Care Note [code = 94280-1] Goal Plan of Care Note [code = 10359-1] Goal Plan of Care Note [code = 50819-1] Goal Plan of Care Note [code = 28716-6] Goal Plan of Care Note [code = 98597-9] Goal Plan of Care Note [code = 73924-1] Goal Plan of Care Note [code = 15281-3] Goal Plan of Care Note [code = 99316-6] Goal Plan of Care Note [code = 96370-3] Goal Plan of Care Note [code = 76732-4] Goal Plan of Care Note [code = 52975-6] Goal Plan of Care Note [code = 32623-0] Goal Plan of Care Note [code = 55642-8] Goal Plan of Care Note [code = 03671-0] Goal Plan of Care Note [code = 19518-6] Goal Plan of Care Note [code = 23089-4] Goal Plan of Care Note [code = 49318-5] Goal Plan of Care Note [code = 98085-3] Goal Plan of Care Note [code = 29248-6] Goal Plan of Care Note [code = 11210-9] Goal Plan of Care Note [code = 65950-4] Goal Plan of Care Note [code = 56056-4] Goal Plan of Care Note [code = 18195-0] Goal Plan of Care Note [code = 41711-7] Goal Plan of Care Note [code = 58890-3] Goal Plan of Care Note [code = 90483-4] Goal Plan of Care Note [code = 40923-2] Goal Plan of Care Note [code = 46892-8] Goal Plan of Care Note [code = 31901-6] Goal Plan of Care Note [code = 85647-8] Goal Plan of Care Note [code = 13326-8] Goal Plan of Care Note [code = 58956-0] Goal Plan of Care Note [code = 17399-6] Goal Plan of Care Note [code = 97094-1] Goal Plan of Care Note [code = 24035-7] Goal Plan of Care Note [code = 50974-7] Goal Plan of Care Note [code = 47938-9] Goal Plan of Care Note [code = 75601-5] Encounters Start Date/Time End Date/Time Encounter Type Admission Type Attending Clinicians Care Facility Care Department Encounter ID Source 2021-02-23 16:17:01 Emergency [facility] [id number] [facility] 2021-02-22 13:07:11 Emergency X BRYCE LYLEA [facility] [id number] [facility] 2023-10-27 22:19:00 2023-10-28 00:48:00 Outpatient [id number] 2023-10-27 22:19:00 2023-10-28 00:48:00 Emergency PIOTR BORJA [id number] [facility] [id number] [place] 2023-10-27 22:19:00 2023-10-27 22:19:00 Abrasion, right knee, initial encounter 10/27/2023 SNOMED-CT 1.3.6.1.4 .1.88548 1.3.6.1.4.1 .16903 [id number] 2023-10-11 12:30:00 2023-10-11 15:59:00 Emergency YUN DANIEL ROBERT [facility] ERT [id number] [facility] 2023-10-11 12:30:00 2023-10-11 15:59:00 Emergency Yun Sams [facility] 1.2.840.114 350.1.13.10 4.2.7.2.686 [id number] [facility] 2023-08-26 15:32:57 2023-08-26 15:32:[address] [facility] [id number] Azam Raphael 2023-08-19 23:06:00 2023-08-20 01:04:00 Emergency X LAURIE BOWEN [facility] ERT [id number] [facility] 2023-08-19 23:06:00 2023-08-20 01:04:00 Emergency Azam Rooney Andres [facility] 1.2.840.114 350.1.13.10 4.2.7.2.686 [id number] [facility] 2023-08-14 10:21:08 2023-08-14 10:21:[address] [facility] [id number] Azam Raphael 2023-08-14 00:00:00 2023-08-14 00:00:[address] [facility] [id number] Azam Raphael 2023-07-30 09:00:00 2023-07-30 09:00:00 Outpatient CHASITY SALVADOR [id number] [facility] 2023-07-16 18:15:00 2023-07-16 18:15:00 Outpatient DIANN PONCE [id number] [facility] 2023-07-16 17:55:00 2023-07-16 17:55:00 Outpatient ELLIOT CAMEJO [id number] [facility] 2023-06-25 10:15:00 2023-06-25 10:15:00 Outpatient [facility] [id number] [facility] 2023-06-22 10:12:02 2023-06-22 10:12:[address] [facility] [id number] Azam Raphael 2023-06-18 16:35:48 2023-06-18 16:35:48 Outpatient [facility] [id number] Azam Raphael 2023-06-18 00:00:00 2023-06-18 00:00:00 Outpatient Visit [facility] [id number] Azam Raphael 2023-06-08 14:44:09 2023-06-08 14:44:09 Outpatient [facility] [id number] Azam Raphael 2023-06-04 10:48:04 2023-06-04 10:48:04 Outpatient [facility] [id number] Azam Raphael 2023-05-25 08:44:02 2023-05-25 08:44:02 Outpatient [facility] [id number] Azam Raphael 2023-04-21 13:55:33 2023-04-21 13:55:33 Outpatient [facility] [id number] Azam Raphael 2023-04-02 17:25:25 2023-04-02 17:25:25 Outpatient [facility] [id number] Azam Raphael 2023-03-03 02:58:00 2023-03-03 03:49:00 Emergency X ERICKANKITJÚNIOR MIRTACLAUDIA [facility] ERT [id number] [facility] 2023-03-03 02:58:00 2023-03-03 03:49:00 Emergency Guilherme Wilder [facility] 1.2.840.114 350.1.13.10 4.2.7.2.686 [id number] [facility] 2023-01-07 13:16:59 2023-01-07 13:16:59 Outpatient [facility] [id number] Azam Raphael 2022-12-03 19:26:04 2022-12-03 19:26:04 Outpatient [facility] [id number] Azam Raphael 2022-11-17 13:05:19 2022-11-17 13:05:[address] [facility] [id number] Azam Raphael 2022-11-10 10:41:21 2022-11-10 10:41:[address] [facility] [id number] Azam Raphael 2022-11-08 14:16:42 2022-11-08 14:16:[address] [facility] [id number] Azam Raphael 2022-10-31 14:26:52 2022-10-31 14:26:[address] [facility] [id number] Azam Raphael 2022-10-27 11:18:15 2022-10-27 11:18:15 Outpatient [facility] [id number] Azam Vallejo Donavon 2022-10-24 15:42:10 2022-10-24 15:42:10 Outpatient [facility] [id number] Azam Raphael 2022-07-08 14:24:41 2022-07-08 14:24:41 Outpatient [place] [id number] Azam Vallejo Don[place]on 2022-07-01 00:00:00 2022-07-01 00:00:00 Orders Only Doctor Unassigned, [place] [facility] 1.840.114 350.1.13.10 4.2.7.2.686 [id number] [facility] 2022-05-07 00:00:00 2022-05-07 00:00:00 Telephone Cathie Subramanian [facility] 1.2.840.114 350.1.13.10 4.2.7.2.686 [id number] [facility] 2022-05-05 00:00:00 2022-05-05 00:00:00 Telephone Cathie Subramanian [facility] 1.2.840.114 350.1.13.10 4.2.7.2.686 [id number] [facility] 2022-05-01 16:00:00 2022-05-01 16:00:00 Outpatient RIVERA RIVERA [facility] [id number] [facility] 2022-04-30 14:30:00 2022-04-30 14:30:00 Office Visit Cathie Subramanian [facility] 1.2.840.114 350.1.13.10 4.2.7.2.686 [id number] [facility] 2022-04-30 14:30:00 2022-04-30 14:22:11 Outpatient R CATHIE SUBRAMANIAN [facility] [id number] [facility] 2022-04-29 14:00:00 2022-04-29 14:00:00 Outpatient RIVERA RIVERA [facility] [id number] [facility] 2022-04-29 00:00:00 2022-04-29 00:00:00 Telephone Rivera Pink [facility] 1.2.840.114 350.1.13.10 4.2.7.2.686 [id number] [facility] 2022-04-28 00:00:00 2022-04-28 00:00:00 Telephone Cathie Subramanian [facility] 1.2.840.114 350.1.13.10 4.2.7.2.686 [id number] [facility] 2022-04-25 10:00:19 2022-04-25 10:00:19 Outpatient [facility] [id number] Azam Raphael 2022-04-01 14:00:00 2022-04-01 14:00:00 Outpatient JESSE SHIELDS [facility] [id number] [facility] 2022-03-27 13:30:00 2022-03-27 13:30:00 Outpatient JESSE SHIELDS [facility] [id number] [facility] 2022-03-05 00:00:00 2022-03-05 00:00:00 Outpatient Visit [id number] 2022-02-14 09:30:00 2022-02-14 09:30:00 Outpatient ERICA MELENDEZ [facility] [id number] [facility] 2022-02-13 13:45:00 2022-02-13 13:45:00 Outpatient [facility] [id number] Azam Raphael 2022-02-13 00:00:00 2022-02-13 00:00:00 Outpatient Visit [id number] 2021-11-25 00:00:00 2021-11-25 00:00:00 Orders Only Doctor Unassigned, [place] [id number] 350.1.13.10 4.2.7.2.686 [id number] [facility] 2021-11-11 00:00:00 2021-11-11 00:00:00 Orders Only Doctor Unassigned, [place] [facility] 1.2.840.114 350.1.13.10 4.2.7.2.686 [id number] [facility] 2021-10-30 00:00:00 2021-10-30 00:00:00 Outpatient Visit [id number] 2021-10-24 07:29:35 2021-10-24 23:59:00 Outpatient Opal BRAVO [facility] [id number] [facility] 2021-10-24 07:29:35 2021-10-24 23:59:00 Hospital Encounter Radiology [facility] ([facility]) 1.2.840.114 350.1.13.10 4.2.7.2.686 [id number] [facility] 2021-10-24 07:28:55 2021-10-24 07:28:55 Hospital Encounter Radiology [facility] ([facility]) 1.2.840.114 350.1.13.10 4.2.7.2.686 [id number] [facility] 2021-10-24 07:28:21 2021-10-24 07:28:21 Hospital Encounter Radiology [facility] ([facility]) 1.2.840.114 350.1.13.10 4.2.7.2.686 [id number] [facility] 2021-10-24 00:00:00 2021-10-24 00:00:00 Outpatient R RADIOLOGY [facility] [id number] [facility] 2021-09-24 00:00:00 2021-09-24 00:00:00 Patient Secure Msg Doctor Unassigned, [place] [facility] 1.2.840.114 350.1.13.10 4.2.7.2.686 [id number] [facility] 2021-09-23 13:12:00 2021-09-23 18:47:00 Emergency X TIMOTEO CISSE [facility] ERT [id number] [facility] 2021-09-23 13:12:00 2021-09-23 18:47:00 Emergency Timoteo Cisse S [facility] 1.2.840.114 350.1.13.10 4.2.7.2.686 [id number] [facility] 2021-09-23 00:00:00 2021-09-23 00:00:00 Orders Only Doctor Unassigned, [place] [facility] 1.2.840.114 350.1.13.10 4.2.7.2.686 [id number] [facility] 2021-01-07 00:00:00 2021-01-07 00:00:00 Patient Secure Msg Hortencia Karen [facility] 1.2.840.114 350.1.13.10 4.2.7.2.686 [id number] [facility] 2021-01-03 15:45:00 2021-01-03 15:45:00 Outpatient R [facility] [id number] [facility] 2020-08-09 00:00:00 2020-08-09 00:00:00 Outpatient R [facility] [facility] [id number] [facility] 2020-06-18 10:00:00 2020-06-18 10:00:00 Outpatient R [facility] [id number] [facility] 2020-06-15 00:00:00 2020-06-15 00:00:00 Patient Secure Msg Jesse Dong [place] [facility] 1..840.114 350.1.13.10 4.2.7.2.686 [id number] [facility] 2020-05-23 14:45:00 2020-05-23 14:45:00 Outpatient R KAREN BURNETT [facility] [id number] [facility] 2020-05-17 00:00:00 2020-05-17 00:00:00 Patient Secure Msg Doctor Unassigned, [place] [facility] [id number] 350.1.13.10 4.2.7.2.686 [id number] [facility] 2020-05-15 13:00:00 2020-05-15 13:00:00 Outpatient R [facility] [id number] [facility] 2020-05-11 13:30:00 2020-05-11 13:30:00 Outpatient R [facility] [id number] [facility] 2020-05-09 10:30:00 2020-05-09 10:30:00 Outpatient R HORTENCIA KAREN [facility] [id number] [facility] 2020-04-13 00:00:00 2020-04-13 00:00:00 Patient Secure Msg Doctor Unassigned, [place] [facility] 1.840.114 350.1.13.10 4.2.7.2.686 [id number] [facility] 2020-04-12 00:00:00 2020-04-12 00:00:00 Patient Secure Msg Doctor Unassigned, [place] [facility] 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[employer]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[employer]SEM[employer] [facility] 1.840.114 350.1.13.10 4.2.7.2.686 [id number] [facility] 2020-04-11 00:00:00 2020-04-11 00:00:00 Patient Secure Msg Doctor Unassigned, [place] [facility] 1.840.114 350.1.13.10 4.2.7.2.686 [id number] [facility] 2020-04-04 09:45:00 2020-04-04 09:45:00 Outpatient R BRYN BRADLEY [facility] [id number] [facility] 2019-12-28 09:15:00 2019-12-28 09:15:00 Outpatient YANICK HINDS [facility] [id number] [facility] 2019-12-28 05:38:00 2019-12-28 05:38:00 Outpatient JESUS GUILLEN [facility] [id number] [facility] 2019-12-09 09:26:00 2019-12-09 09:26:00 Outpatient JESUS GUILLEN [facility] [id number] [facility] 2019-08-04 13:30:00 2019-08-04 13:30:00 Outpatient R [facility] [id number] [facility] 2019-07-25 08:00:00 2019-07-25 08:00:00 Outpatient R AMIRA Hauser [facility] [id number] [facility] 2019-07-18 14:00:00 2019-07-18 14:00:00 Outpatient R [facility] [id number] [facility] 2019-07-18 10:00:00 2019-07-18 10:00:00 Outpatient R AMIRA Hauser [facility] [id number] [facility] 2019-07-11 15:00:00 2019-07-11 15:00:00 Outpatient JESSE SHIELDS [facility] [id number] [facility] 2019-06-20 11:00:00 2019-06-20 11:00:00 Outpatient KAREN KEN [facility] [id number] [facility] 2019-05-10 08:56:42 2019-05-10 23:59:00 Outpatient CARL RIVERA [facility] [id number] Jennifer [facility] 2019-04-28 14:00:00 2019-04-28 14:00:00 Outpatient AMNA BHANDARI [facility] [id number] [facility] 2019-04-18 15:00:00 2019-04-18 16:35:19 Outpatient RUSTAM RAVI [facility] [id number] [facility] 2019-04-14 15:30:00 2019-04-14 16:09:05 Outpatient ISRAEL SILVA SHANNON [facility] [id number] [facility] 2019-04-07 09:30:00 2019-04-07 14:57:02 Outpatient LENNOX BENSON [facility] [id number] [facility] 2019-01-27 15:00:00 2019-01-27 15:00:00 Outpatient P RUSTAM THRASHER [facility] [id number] [facility] 2019-01-26 14:30:00 2019-01-26 14:25:24 Outpatient P AZEB MORRISON [facility] [id number] [facility] 2018-12-30 10:00:00 2018-12-30 11:14:24 Outpatient P AMNA CLARK [facility] [id number] [facility] 2018-12-29 10:45:00 2018-12-29 10:45:00 Outpatient P NISH GLOVER [facility] [id number] [facility] Results Test Description Test Time Test Comments Results Result Comments Source XR CHEST 2 VW 2023-09-26 6 20:03:16 EXAM: XR CHEST 2 10/11/2023 1:17 PM HISTORY: 33 years-old Female with hemoptysis after blunt injury . TECHNIQUE: PA and lateral chest radiographs. COMPARISON: Chest radiograph dated 07/14/2017. FINDINGS: Lungs and pleura: The lungs are hyperinflated. No focal opacities, pleuraleffusion or pneumothorax is visualized. Heart/Mediastinum: The cardiomediastinal silhouette appears normalaccounting for technique and degree of inspiration. Bones and soft tissues: No acute osseous abnormality. [facility] CT HEAD WO CONTRAST 2023-09-26 6 18:53:57 EXAMS: CT HEAD WO CONTRAST, CT CERVICAL SPINE WO CONTRAST HISTORY: 33 years-old Female; Head trauma, moderate-severe, right parietalhead injury COMPARISON: Brain MRI dated 05/10/2019 TECHNIQUE: ?CT imaging of the head and cervical spine was obtained withoutIV contrast. Coronal and sagittal reformats were constructed. FINDINGS: HEAD: The ventricles and cerebral sulci are normal in caliber and configuration.No hydrocephalus, midline shift or pathological extra-axial fluidcollection is present. The basal cisterns are unremarkable. There is no acute intracranial hemorrhage or significant mass effect. Noparenchymal attenuation abnormality. The persaud-white matter differentiationis preserved. The mastoid air cells and paranasal air sinuses are clear. The calvariumand central skull base are unremarkable. CERVICAL SPINE: Straightening of normal cervical lordosis is seen. The vertebral bodies arenormal in height and alignment. No acute fracture or traumaticmalalignment. The craniocervical junction is intact. The intervertebraldisc spaces are preserved. [facility] CT CERVICAL SPINE WO CONTRAST 2023-09-26 6 18:53:57 EXAMS: CT HEAD WO CONTRAST, CT CERVICAL SPINE WO CONTRAST HISTORY: 33 years-old Female; Head trauma, moderate-severe, right parietalhead injury COMPARISON: Brain MRI dated 05/10/2019 TECHNIQUE: ?CT imaging of the head and cervical spine was obtained withoutIV contrast. Coronal and sagittal reformats were constructed. FINDINGS: HEAD: The ventricles and cerebral sulci are normal in caliber and configuration.No hydrocephalus, midline shift or pathological extra-axial fluidcollection is present. The basal cisterns are unremarkable. There is no acute intracranial hemorrhage or significant mass effect. Noparenchymal attenuation abnormality. The persaud-white matter differentiationis preserved. The mastoid air cells and paranasal air sinuses are clear. The calvariumand central skull base are unremarkable. CERVICAL SPINE: Straightening of normal cervical lordosis is seen. The vertebral bodies arenormal in height and alignment. No acute fracture or traumaticmalalignment. The craniocervical junction is intact. The intervertebraldisc spaces are preserved. [facility] XR HAND 3+ VW RIGHT 2023-07-28 5 05:21:49 Ordering physician: LAURIE BOWEN INDICATION: Right hand injury COMPARISON: None FINDINGS: 3 views of the right hand. No acute fracture or dislocation isappreciated. There is apparent bony remodeling of the fifth metacarpal,possibly reflecting healed remote fracture. [facility] [id number] 00:00:00* Test Item Value Reference Range Interpretation Comme nts GLUCOSE (test code = 2217) 110 MG/DL BUN (test code = 2208) 17 MG/DL CREATININE (test code = 2214) 0.72 MG/DL eGFR (2020 CKD-EPI) (test code = 36750) 112 ML/MIN/1.73 CALC BUN/CREAT (test code = [...] 15 U/L Azam RaphaelTSH REFLEX TO FREE [id number] 00:00:00* Test Item Value Reference Range Interpretation Comme nts TSH REFLEX TO FREE T4 (test code = 2834) 0.703 UIU/ML Azam RaphaelHIV 1/2 4TH GEN, RFLX [id number] 00:00:00* Test Item Value Reference Range Interpretation Comme nts HIV 1/2 4TH GEN, RFLX CONF ( test code = 3514) NON-REACTIVE Azam RaphaelRPR REFLEX TO T. PALLIDUM - [id number] 00:00:00* Test Item Value Reference Range Interpretation Comme nts RPR (test code = 66249) NON-REACTIVE RPR TITER (test code = 3500) NOT INDIC. TITER Azam RaphaelHEPATITIS PROFILE (A,B,C)2023-08-15 00:00:00* Test Item Value Reference Range Interpretation Comme nts HEPATITIS A TOTAL AB (test c ode = 2725) REACTIVE HEPATITIS B SURF AG (test co de = 2739) NON-REACTIVE HEP B CORE TOTAL AB (test co de = 2729) NON-REACTIVE HEPATITIS B SURFACE AB (test code = 2737) REACTIVE HEPATITIS C ANTIBODY (test c ode = 6875) NON-REACTIVE INTERPRETATION HEPATITIS A: (test code = 2552) (NOTE) INTERPRETATION HEPATITIS B: (test code = 18417) (NOTE) INTERPRETATION HEPATITIS C: (test code = 31682) (NOTE) Azam Vallejo DonvaonHEPATITIS A IgM [REFLEX]2023-08-15 00:00:00* Test Item Value Reference Range Interpretation Comme nts HEPATITIS A IgM (test code = 2728) NON-REACTIVE Azam RaphaelLIPID [id number] 00:00:00* Test Item Value Reference Range Interpretation Comme nts CHOLESTEROL (test code = 2210) 184 MG/DL TRIGLYCERIDES (test code = 2232) 69 MG/DL HDL CHOLESTEROL (test code = 2220) 67 MG/DL CALC LDL CHOL (test code = 2237) 101 MG/DL RISK RATIO LDL/HDL (test cod e = 2238) 1.51 RATIO Azam RaphaelCBC W/AUTO [id number] 00:00:00* Test Item Value Reference Range Interpretation [...] ABS NUCLEATED RBCS (test cod e = 09389) 0.00 K/UL Azam RaphaelCOMPREHENSIVE METABOLIC [id number] 00:00:00* Test Item Value Reference Range Interpretation Comme nts GLUCOSE (test code = 2217) 110 MG/DL BUN (test code = 2208) 17 MG/DL CREATININE (test code = 2214) 0.72 MG/DL eGFR (2020 CKD-EPI) (test code = 09950) 112 ML/MIN/1.73 CALC BUN/CREAT (test code = [...] 15 U/L Azam RaphaelTSH REFLEX TO FREE [id number] 00:00:00* Test Item Value Reference Range Interpretation Comme nts TSH REFLEX TO FREE T4 (test code = 2834) 0.703 UIU/ML Azam RaphaelHIV 1/2 4TH GEN, RFLX [id number] 00:00:00* Test Item Value Reference Range Interpretation Comme nts HIV 1/2 4TH GEN, RFLX CONF ( test code = 3514) NON-REACTIVE Azam RaphaelRPR REFLEX TO T. PALLIDUM - [id number] 00:00:00* Test Item Value Reference Range Interpretation Comme nts RPR (test code = 88220) NON-REACTIVE RPR TITER (test code = 3500) [...] (NOTE) INTERPRETATION HEPATITIS B: (test code = 67191) (NOTE) INTERPRETATION HEPATITIS C: (test code = 99702) (NOTE) Azam RaphaelHEPATITIS A IgM [REFLEX]2023-08-15 00:00:00* Test Item Value Reference Range Interpretation Comme nts HEPATITIS A IgM (test code = 2728) NON-REACTIVE Azam RaphaelLIPID [id number] 00:00:00* Test Item Value Reference Range Interpretation Comme nts CHOLESTEROL (test code = 2210) 184 MG/DL TRIGLYCERIDES (test code = 2232) 69 MG/DL HDL CHOLESTEROL (test code = 2220) 67 MG/DL CALC LDL CHOL (test code = 2237) 101 MG/DL RISK RATIO LDL/HDL (test cod e = 2238) 1.51 RATIO Azam RaphaelCBC W/AUTO [id number] 00:00:00* Test Item Value Reference Range Interpretation [...] ABS NUCLEATED RBCS (test cod e = 45607) 0.00 K/UL Azam PuentePES SIMPLEX AB, [id number] 20:04:09* Test Item Value Reference Range Interpretation Comme [facility] HERPES SIMPLEX AB, IgM (test code = 06394) 1.03 INDEX SEE BELOW H FOR EQUIVOCAL [...] AND COMPARISON TO ACUTE OR CONVALESCENT TYPE-SPECIFIC FLU0OIK HSV2 IgG ASSAYS SHOULD BE CONSIDERED. INTERPRETATION UNITS RANGE ----- ----- NEGATIVE INDEX <=0.89 EQUIVOCAL INDEX 0.90-1.09 POSITIVE INDEX >=1.10 PAP TEST, THINPREP, [id number] 14:19:03* Test Item Value Reference Range Interpretation Comme [facility] SOURCE: (test code = 8001) Cervical/Endo cervical SLIDES: (test code = 8011) 1 LMP: (test code = 8021) 12/26/2022 SPECIMEN ADEQUACY: (test code = 52499) (NOTE) Satisfactory for evaluation. Endocervical cells/transformation zone component not identified. INTERPRETATION: (test code = 25155) NILM/NO EPITH. ABNORMALITY;S EE BELOW ---- NEGATIVE FOR INTRAEPITHELIAL LESION OR MALIGNANCY (NILM) - OTHER COMMENTS: (test code = 8081) (NOTE) Shift in hallie suggestive of bacterial vaginosis. TRAFFIC RATE CLERK: (test code = 8101) HAYLIE Beach (ASCP) LOCATION: (test code = 51950) (NOTE) Specimens proces sed and interpreted at [facility], [address] [place] [address], , CLIA: [id number] CPT: (test code = 8140) (NOTE) 72203 UNLESS OTH ERWISE INDICATED, COMPUTER AIDED AND TRAFFIC RATE CLERK SCREENING PERFORMED. The Pap test is a screening test with an inherent, but low probability of error. Your patient should be reminded to consult you immediately if she experiences any suspicious signs or symptoms, regardless of her Pap test result. An alternate report format containing images or consolidated prior Pap history is available as applicable. HPV HIGH RISK WITH GENOTYPE, [id number] 14:13:14* Test Item Value Reference Range Interpretation Comme nts HPV HIGH RISK INTERP (test code = 38035) NEGATIVE NEGATIVE HPV 16 (test code = 37231) NEGATIVE HPV 18 (test code = 55645) NEGATIVE HPV, HR, OTHER GENOTYPES (test code = 03194) NEGATIVE Testing methodol ogy is real-time PCR [...] TESTING PERFORMED AT [facility] [address] [place] [address] WEB OPERATIONS SPECIALIST: CYNDEE MCPHERSON M.D. CLIA NUMBER [id number] [facility] [place]. [id number] VAGINAL PATHOGENS DNA [id number] 13:04:06* Test Item Value Reference Range Interpretation Comme nts DWIGHT SPECIES (test code = 41901) NEGATIVE NEGATIVE G. VAGINALIS (test code = 62132) POSITIVE NEGATIVE A T. VAGINALIS (test code = 36137) NEGATIVE NEGATIVE Note: The [facility] VPIII Microbial Identification Testis a DNA probe test intended for use in the detectionand identification of Dwight species, Gardnerellavaginalis and Trichomonas vaginalis nucleic acid. CT/NG, NAAT, [id number] 11:41:28* Test Item Value Reference Range Interpretation Comme nts CHLAMYDIA, NAAT, THINPREP (test code = 09282) NEGATIVE NEGATIVE A negative resul t does not exclude low level infection, specimensampling error, or collection error. Testing is performed with the Kaiden Jenniffer 6800/8800 systems usingreal-time Polymerase Chain Reaction (PCR) method. GONORRHEA, NAAT, THINPREP (test code = 54693) NEGATIVE NEGATIVE A negative resul t does not exclude low level infection, specimensampling error, or collection error. Testing is performed with the [employer] Jenniffer 6800/8800 systems usingreal-time Polymerase Chain Reaction (PCR) method. [id number] 05:38:12* Test Item Value Reference Range Interpretation Comme nts RPR RESULT (test code = 3501) NON-REACTIVE NON-REACTIVE RPR TITER (test code = 3500) NOT INDIC. TITER NOT INDIC. HIV 1/2 4TH GEN, RFLX [id number] 04:19:13* Test Item Value Reference Range Interpretation Comme nts HIV 1/2 4TH GEN, RFLX CONF ( test code = 3514) NON-REACTIVE NON-REACTIVE HEPATITIS PANEL, [id number] 04:19:13* Test Item Value Reference Range Interpretation Comme nts HEPATITIS A IgM (test code = 93638) NON-REACTIVE NON-REACTIVE HEPATITIS B CORE IgM (test code = 4644) NON-REACTIVE NON-REACTIVE HEPATITIS B SURF AG (test code = 2739) NON-REACTIVE NON-REACTIVE HEPATITIS C ANTIBODY (test code = 4675) NON-REACTIVE NON-REACTIVE INTERPRETATION HEPATITIS A: (test code = 2552) (NOTE) Hepatitis A serology shows no evidence of acute hepatitis A. INTERPRETATION HEPATITIS B: (test code = 54231) (NOTE) Hepatitis B serology shows no evidence of acute hepatitis B andno indication of exposure to hepatitis B virus in the previous kiko eight months. INTERPRETATION HEPATITIS C: (test code = 54448) (NOTE) Hepatitis C serology shows no evidence of exposure to hepatitisC virus at this time. It can take up to 12 months after exposure tothe hepatitis C virus for antibodies to become detectable in the blood in certain patients. HERPES SIMPLEX 1/2 AB, IgG [id number] 04:19:13* Test Item Value Reference Range Interpretation Comme nts HERPES SIMPLEX 1 AB, IgG (test code = 39451) 11.900 INDEX SEE BELOW H INTERPRETATION U NITS RANGE ----- ----- NON-REACTIVE INDEX <1.000 REACTIVE INDEX >=1.000 HERPES SIMPLEX 2 AB, IgG (test code = 18641) 21.200 INDEX SEE BELOW H INTERPRETATION U NITS RANGE ----- ----- NON-REACTIVE INDEX <1.000 REACTIVE INDEX >=1.000 UNLESS OTHERWISE INDICATED, ALL TESTING PERFORMED AT [facility] [address] [place] [address] WEB OPERATIONS SPECIALIST: CYNDEE MCPHERSON M.D. CLIA NUMBER [id number] [facility] [place]. [id number] HPV HIGH RISK WITH GENOTYPE, [id number] 00:00:00* Test Item Value Reference Range Interpretation Comme nts HPV HIGH RISK INTERP (test c ode = 58142) NEGATIVE HPV 16 (test code = 02828) NEGATIVE HPV 18 (test code = 04505) NEGATIVE HPV, HR, OTHER GENOTYPES (te st code = 92138) NEGATIVE Azam [id number] 00:00:00* Test Item Value Reference Range Interpretation Comme nts RPR RESULT (test code = 3501) NON-REACTIVE RPR TITER (test code = 3500) NOT INDIC. TITER Azam RaphaelACUTE HEPATITIS [id number] 00:00:00* Test Item Value Reference Range Interpretation Comme nts HEPATITIS A IgM (test code = 51119) NON-REACTIVE HEPATITIS B CORE IgM (test c ode = 4644) NON-REACTIVE HEPATITIS B SURF AG (test co de = 2739) NON-REACTIVE HEPATITIS C ANTIBODY (test c ode = 4675) NON-REACTIVE INTERPRETATION HEPATITIS A: (test code = 2552) (NOTE) INTERPRETATION HEPATITIS B: (test code = 91912) (NOTE) INTERPRETATION HEPATITIS C: (test code = 04941) (NOTE) Azam PuetnePES SIMPLEX [id number] 00:00:00* Test Item Value Reference Range Interpretation Comme karolyn HERPES SIMPLEX AB, IgM (test code = 69991) 1.03 INDEX Azam RaphaelHERPES SIMPLEX 1/2 [id number] 00:00:00* Test Item Value Reference Range Interpretation Comme nts HERPES SIMPLEX 1 AB, IgG (te st code = 03014) 11.900 INDEX HERPES SIMPLEX 2 AB, IgG (te st code = 35961) 21.200 INDEX Azam Vallejo AustinHIV 1/2 4TH GEN, RFLX [id number] 00:00:00* Test Item Value Reference Range Interpretation Comme nts HIV 1/2 4TH GEN, RFLX CONF ( test code = 3514) NON-REACTIVE Azam RaphaelGC AND CHLAMYDIA AMPLIFIED, [id number] 00:00:00* Test Item Value Reference Range Interpretation Comme nts CHLAMYDIA, NAAT, THINPREP (t est code = 82117) NEGATIVE GONORRHEA, NAAT, THINPREP (t est code = 52702) NEGATIVE Azam RaphaelPAP TEST, THINPREP, [id number] 00:00:00* Test Item Value Reference Range Interpretation Comme nts SOURCE: (test code = 8001) Cervical/Endocervical SLIDES: (test code = 8011) 1 LMP: (test code = 8021) 12/26/2022 SPECIMEN ADEQUACY: (test code = 64434) (NOTE) INTERPRETATION: (test code = 92802) NILM/NO EPITH. ABNORMALITY;SEE BELOW OTHER COMMENTS: (test code = 8081) (NOTE) TRAFFIC RATE CLERK: (test code = 8101) HAYLIE Beach (ASCP) LOCATION: (test code = 50422) (NOTE) CPT: (test code = 8140) (NOTE) Azam RaphaelVAGINAL PATHOGENS DNA [id number] 00:00:00* Test Item Value Reference Range Interpretation Comme nts DWIGHT SPECIES (test code = 97798) NEGATIVE G. VAGINALIS (test code = ) POSITIVE T. VAGINALIS (test code = ) NEGATIVE Azam RaphaelHPV HIGH RISK WITH GENOTYPE, [id number] 00:00:00* Test Item Value Reference Range Interpretation Comme nts HPV HIGH RISK INTERP (test c ode = 90594) NEGATIVE HPV 16 (test code = 71732) NEGATIVE HPV 18 (test code = 65917) NEGATIVE HPV, HR, OTHER GENOTYPES (te st code = 78357) NEGATIVE Azam [id number] 00:00:00* Test Item Value Reference Range Interpretation Comme nts RPR RESULT (test code = 3501) NON-REACTIVE RPR TITER (test code = 3500) NOT INDIC. TITER Azam RaphaelACUTE HEPATITIS [id number] 00:00:00* Test Item Value Reference Range Interpretation Comme nts HEPATITIS A IgM (test code = 07045) NON-REACTIVE HEPATITIS B CORE IgM (test c ode = 4644) NON-REACTIVE HEPATITIS B SURF AG (test co de = 2739) NON-REACTIVE HEPATITIS C ANTIBODY (test c ode = 4675) NON-REACTIVE INTERPRETATION HEPATITIS A: (test code = 2552) (NOTE) INTERPRETATION HEPATITIS B: (test code = 50344) (NOTE) INTERPRETATION HEPATITIS C: (test code = 72616) (NOTE) Azam PuentePES SIMPLEX [id number] 00:00:00* Test Item Value Reference Range Interpretation Comme nts HERPES SIMPLEX AB, IgM (test code = 05577) 1.03 INDEX Azam RaphaelHERPES SIMPLEX 1/2 [id number] 00:00:00* Test Item Value Reference Range Interpretation Comme nts HERPES SIMPLEX 1 AB, IgG (te st code = 80236) 11.900 INDEX HERPES SIMPLEX 2 AB, IgG (te st code = 33989) 21.200 INDEX Azam RaphaelHIV 1/2 4TH GEN, RFLX [id number] 00:00:00* Test Item Value Reference Range Interpretation Comme nts HIV 1/2 4TH GEN, RFLX CONF ( test code = 3514) NON-REACTIVE Azam RaphaelGC AND CHLAMYDIA AMPLIFIED, [id number] 00:00:00* Test Item Value Reference Range Interpretation Comme nts CHLAMYDIA, NAAT, THINPREP (t est code = 09612) NEGATIVE GONORRHEA, NAAT, THINPREP (t est code = 78387) NEGATIVE Azam RaphaelPAP TEST, THINPREP, [id number] 00:00:00* Test Item Value Reference Range Interpretation Comme nts SOURCE: (test code = 8001) Cervical/Endocervical SLIDES: (test code = 8011) 1 LMP: (test code = 8021) 12/26/2022 SPECIMEN ADEQUACY: (test code = 00000) (NOTE) INTERPRETATION: (test code = 75942) NILM/NO EPITH. ABNORMALITY;SEE BELOW OTHER COMMENTS: (test code = 8081) (NOTE) TRAFFIC RATE CLERK: (test code = 8101) HAYLIE Beach (ASCP) LOCATION: (test code = 55614) (NOTE) CPT: (test code = 8140) (NOTE) Azam Vallejo AustinVAGINAL PATHOGENS DNA [id number] 00:00:00* Test Item Value Reference Range Interpretation Comme nts DWIGHT SPECIES (test code = 95189) NEGATIVE G. VAGINALIS (test code = 22241) POSITIVE T. VAGINALIS (test code = 44577) NEGATIVE Azam RaphaelPAP TEST, THINPREP, [id number] 12:31:46* Test Item Value Reference Range Interpretation Comme nts SOURCE: (test code = 8001) Cervical SLIDES: (test code = 8011) 1 LMP: (test code = 8021) NOT GIVEN SPECIMEN ADEQUACY: (test code = 91655) (NOTE) Satisfactory for evaluation. Endocervical cells/transformation zone component present. INTERPRETATION: (test code = 90800) NILM/NO EPITH. ABNORMALITY;SEE BELOW --- - NEGATIVE FOR INTRAEPITHELIAL LESION OR MALIGNANCY (NILM) ---- TRAFFIC RATE CLERK : (test code = 8101) HAYLIE Beach (ASCP) LOCATION: (test code = 97275) (NOTE) Specimens proces sed and interpreted at [facility], [address] [place] [address], , CLIA: [id number] CPT: (test code = 8140) (NOTE) 72103 UNLESS OTH ERWISE INDICATED, COMPUTER AIDED AND TRAFFIC RATE CLERK SCREENING PERFORMED. The Pap test is a screening test with an inherent, but low probability of error. Your patient should be reminded to consult you immediately if she experiences any suspicious signs or symptoms, regardless of her Pap test result. An alternate report format containing images or consolidated prior Pap history is available as applicable. HPV HIGH RISK WITH GENOTYPE, [id number] 12:26:32* Test Item Value Reference Range Interpretation Comme nts HPV HIGH RISK INTERP (test code = 27318) NEGATIVE NEGATIVE HPV 16 (test code = 20429) NEGATIVE HPV 18 (test code = 25408) NEGATIVE HPV, HR, OTHER GENOTYPES (test code = 03286) NEGATIVE Testing methodol ogy is real-time PCR [...] error. UNLESS OTHERWISE INDICATED, ALL TESTING PERFORMED [facility] [address] [place] [address] WEB OPERATIONS SPECIALIST: TERRI MCCRARY M.D. CLIA NUMBER [id number] [facility] [place]. [id number] HPV HIGH RISK WITH GENOTYPE, [id number] 00:00:00* Test Item Value Reference Range Interpretation Comme nts HPV HIGH RISK INTERP (test c ode = 43138) NEGATIVE HPV 16 (test code = 44600) NEGATIVE HPV 18 (test code = 23881) NEGATIVE HPV, HR, OTHER GENOTYPES (te st code = 42348) NEGATIVE Azam Rodriguez TEST, THINPREP, [id number] 00:00:00* Test Item Value Reference Range Interpretation Comme nts SOURCE: (test code = 8001) Cervical SLIDES: (test code = 8011) 1 LMP: (test code = 8021) NOT GIVEN SPECIMEN ADEQUACY: (test code = 39854) (NOTE) INTERPRETATION: (test code = 35229) NILM/NO EPITH. ABNORMALITY;SEE BELOW TRAFFIC RATE CLERK: (test code = 8101) Devora Menezes CT (ASCP) LOCATION: (test code = 36828) (NOTE) CPT: (test code = 8140) (NOTE) Azam RaphaelHPV HIGH RISK WITH GENOTYPE, [id number] 00:00:00* Test Item Value Reference Range Interpretation Comme nts HPV HIGH RISK INTERP (test c ode = 71109) NEGATIVE HPV 16 (test code = 45185) NEGATIVE HPV 18 (test code = 88970) NEGATIVE HPV, HR, OTHER GENOTYPES (te st code = 64652) NEGATIVE Azam Vallejo DonavonPAP TEST, THINPREP, [id number] 00:00:00* Test Item Value Reference Range Interpretation Comme nts SOURCE: (test code = 8001) Cervical SLIDES: (test code = 8011) 1 LMP: (test code = 8021) NOT GIVEN SPECIMEN ADEQUACY: (test code = 00895) (NOTE) INTERPRETATION: (test code = 09057) NILM/NO EPITH. ABNORMALITY;SEE BELOW TRAFFIC RATE CLERK: (test code = 8101) HAYLIE Beach (ASCP) LOCATION: (test code = 20737) (NOTE) CPT: (test code = 8140) (NOTE) Azam Vallejo DonavonCT/NG, NAAT, [id number] 17:17:22* Test Item Value Reference Range Interpretation Comme nts CHLAMYDIA, NAAT, THINPREP (test code = 91704) NEGATIVE NEGATIVE A negative resul t does not exclude low level infection, specimensampling error, or collection error. Testing is performed with the [employer] 6800/8800 systems usingreal-time Polymerase Chain Reaction (PCR) method. GONORRHEA, NAAT, THINPREP (test code = 26814) NEGATIVE NEGATIVE A negative resul t does not exclude low level infection, specimensampling error, or collection error. Testing is performed with the [employer] 6800/8800 systems usingreal-time Polymerase Chain Reaction (PCR) method. GC AND CHLAMYDIA AMPLIFIED, [id number] 00:00:00* Test Item Value Reference Range Interpretation Comme nts CHLAMYDIA, NAAT, THINPREP (t est code = 38243) NEGATIVE GONORRHEA, NAAT, THINPREP (t est code = 14595) NEGATIVE Azam F DonavonGC AND CHLAMYDIA AMPLIFIED, [id number] 00:00:00* Test Item Value Reference Range Interpretation Comme nts CHLAMYDIA, NAAT, THINPREP (t est code = 17791) NEGATIVE GONORRHEA, NAAT, THINPREP (t est code = 97604) NEGATIVE Azam F AustinVAGINAL PATHOGENS DNA [id number] 12:33:41* Test Item Value Reference Range Interpretation Comme nts DWIGHT SPECIES (test code = 35039) NEGATIVE NEGATIVE G. VAGINALIS (test code = 91501) POSITIVE NEGATIVE A T. VAGINALIS (test code = 32859) NEGATIVE NEGATIVE Note: The [employer] VPIII Microbial Identification Testis a DNA probe test intended for use in the detectionand identification of Dwight species, Gardnerellavaginalis and Trichomonas vaginalis nucleic acid. HIV 1/2 4TH GEN, RFLX [id number] 03:14:00* Test Item Value Reference Range Interpretation Comme nts HIV 1/2 4TH GEN, RFLX CONF ( test code = 3514) NON-REACTIVE NON-REACTIVE HEPATITIS PANEL, [id number] 03:14:00* Test Item Value Reference Range Interpretation Comme nts HEPATITIS A IgM (test code = 17700) NON-REACTIVE NON-REACTIVE HEPATITIS B CORE IgM (test code = 4644) NON-REACTIVE NON-REACTIVE HEPATITIS B SURF AG (test code = 2739) NON-REACTIVE NON-REACTIVE HEPATITIS C ANTIBODY (test code = 4675) NON-REACTIVE NON-REACTIVE INTERPRETATION HEPATITIS A: (test code = 2552) (NOTE) Hepatitis A sero logy shows no evidence of acute hepatitis A. INTERPRETATION HEPATITIS B: (test code = 52003) (NOTE) Hepatitis B sero logy shows no evidence of acute hepatitis B andno indication of exposure to hepatitis B virus in the previous kiko eight months. INTERPRETATION HEPATITIS C: (test code = 12490) (NOTE) Hepatitis C sero logy shows no evidence of exposure to hepatitisC virus at this time. It can take up to 12 months after exposure tothe hepatitis C virus for antibodies to become detectable in the blood in certain patients. UNLESS OTHERWISE INDICATED, ALL TESTING PERFORMED [facility] [employer], [facility]. [address] [place] [address] WEB OPERATIONS SPECIALIST: TERRI MCCRARY M.D. [place] NUMBER [id number] [facility] [place]. [id number] 02:43:33* Test Item Value Reference Range Interpretation Comme nts RPR RESULT (test code = 3501) NON-REACTIVE NON-REACTIVE RPR TITER (test code = 3500) NOT INDIC. TITER NOT INDIC. [id number] 00:00:00* Test Item Value Reference Range Interpretation Comme nts RPR RESULT (test code = 3501) NON-REACTIVE RPR TITER (test code = 3500) NOT INDIC. TITER Azam RaphaelACUTE HEPATITIS [id number] 00:00:00* Test Item Value Reference Range Interpretation Comme nts HEPATITIS A IgM (test code = 52367) NON-REACTIVE HEPATITIS B CORE IgM (test c ode = 4644) NON-REACTIVE HEPATITIS B SURF AG (test co de = 2739) NON-REACTIVE HEPATITIS C ANTIBODY (test c ode = 4675) NON-REACTIVE INTERPRETATION HEPATITIS A: (test code = 2552) (NOTE) INTERPRETATION HEPATITIS B: (test code = 70354) (NOTE) INTERPRETATION HEPATITIS C: (test code = 20737) (NOTE) Azam Vallejo AustinHIV 1/2 4TH GEN, RFLX [id number] 00:00:00* Test Item Value Reference Range Interpretation Comme nts HIV 1/2 4TH GEN, RFLX CONF ( test code = 3514) NON-REACTIVE Azam RaphaelVAGINAL PATHOGENS DNA [id number] 00:00:00* Test Item Value Reference Range Interpretation Comme nts DWIGHT SPECIES (test code = 15329) NEGATIVE G. VAGINALIS (test code = 47459) POSITIVE T. VAGINALIS (test code = 76319) NEGATIVE Azam Vallejo [id number] 00:00:00* Test Item Value Reference Range Interpretation Comme nts RPR RESULT (test code = 3501) NON-REACTIVE RPR TITER (test code = 3500) NOT INDIC. TITER Azam RaphaelACUTE HEPATITIS [id number] 00:00:00* Test Item Value Reference Range Interpretation Comme nts HEPATITIS A IgM (test code = 43813) NON-REACTIVE HEPATITIS B CORE IgM (test c ode = 4644) NON-REACTIVE HEPATITIS B SURF AG (test co de = 9769) NON-REACTIVE HEPATITIS C ANTIBODY (test c ode = 4695) NON-REACTIVE INTERPRETATION HEPATITIS A: (test code = 2552) (NOTE) INTERPRETATION HEPATITIS B: (test code = 94558) (NOTE) INTERPRETATION HEPATITIS C: (test code = 06361) (NOTE) Azam RaphaelHIV 1/2 4TH GEN, RFLX [id number] 00:00:00* Test Item Value Reference Range Interpretation Comme nts HIV 1/2 4TH GEN, RFLX CONF ( test code = 3514) NON-REACTIVE Azam RaphaelVAGINAL PATHOGENS DNA [id number] 00:00:00* Test Item Value Reference Range Interpretation Comme nts DWIGHT SPECIES (test code = 77153) NEGATIVE G. VAGINALIS (test code = 36220) POSITIVE T. VAGINALIS (test code = 22561) NEGATIVE Azam RaphaelCOMP. METABOLIC PANEL (12158)2021-09-23 19:42:47* Test Item Value Reference Range Interpretation Comme nts NA (test code = 6999706315) 138 mmol/L 135-145 K (test code = 7401731093) 4.8 mmol/L 3.5-5.0 CL (test code = 5569572893) 102 mmol/L 98-108 CO2 TOTAL (test code = 8963216252) 25 mmol/L 23-31 AGAP (test code = 2181358043) 2-16 BUN (test code = 1051965997) 15 mg/dL 7-23 GLUCOSE (test code = 9852588440) 90 mg/dL 70-110 CREATININE (test code = 6734775744) 0.64 mg/dL 0.50-1.04 TOTAL BILI (test code = 7526609309) 0.8 mg/dL 0.1-1.1 CALCIUM (test code = 1993286048) 9.9 mg/dL 8.6-10.6 T PROTEIN (test code = 3588904166) 7.8 g/dL 6.3-8.2 ALBUMIN (test code = 1396894038) 5.0 g/dL 3.5-5.0 ALK PHOS (test code = 6366922761) 84 U/L 34-122 ALTv (test code = 1742-6) 14 U/L 5-35 AST(SGOT) (test code = 8851937928) 23 U/L 13-40 eGFR (test code = 6554249512) mL/min/1.73m2 [place] (test code = [place]) Association [...] or urine or abnormalities in imaging tests). [facility] WITH [id number] 19:29:29* Test Item Value Reference Range Interpretation Comme nts WBC (test code = 6690-2) See_Comment [Automated Disconnect] The system which generated this result transmitted reference range: 4.30 - 11.10 10*3/?L. The reference range was not used to interpret this result as normal/abnormal. RBC (test code = 789-8) See_Comment [Automated [employer]] The system which generated this result [...] 34.0 g/dL 31.6-35.1 RDW-SD (test code = 16358-8) 42.0 fL 39.0-49.9 RDW-CV (test code = 788-0) 12.1 % 12.0-15.5 PLT (test code = 777-3) See_Comment [Automated [employer]] The system which generated this result transmitted reference range: 166 - 358 10*3/?L. The reference range was not used to interpret this result as normal/abnormal. MPV (test code = 99048-2) 10.0 fL 9.5-12.9 NRBC/100 WBC (test code = 9372285651) See_Comment [Automated [employer] ss[employer]] The system which generated this result transmitted reference range: 0.0 - 10.0 /100 WBCs. The reference range was not used to interpret this result as normal/abnormal. NRBC x10^3 (test code = 4996375743) <0.01 See_Comment [Automated [employer]] The system which generated this result transmitted reference range: 10*3/?L. The reference range was not used to interpret this result as normal/abnormal. GRAN MAT (NEUT) % (test code = 770-8) 65.5 % IMM GRAN % (test code = 0642819759) 0.40 % LYMPH % (test code = 736-9) 20.6 % MONO % (test code = 5905-5) 10.5 % EOS % (test code = 713-8) 2.1 % BASO % (test code = 706-2) 0.9 % GRAN MAT x10^3(ANC) (test code = 3026099528) 5.61 10*3/uL 1.88-7.09 IMM GRAN x10^3 (test code = 3344432536) 0.03 10*3/uL 0.00-0.06 LYMPH x10^3 (test code = 731-0) 1.76 10*3/uL 1.32-3.29 MONO x10^3 (test code = 742-7) 0.90 10*3/uL 0.33-0.92 EOS x10^3 (test code = 711-2) 0.18 10*3/uL 0.03-0.39 BASO x10^3 (test code = 704-7) 0.08 10*3/uL 0.01-0.07 H Lab Interpretation (test code = 51897-8) [facility] [id number] 18:47:00* Test Item Value Reference Range Interpretation Comme nts POCT PREG (test code = 1605) Negative On board controls acceptable with C Line (test code = 3574) Present POCT PREG LOT # (test code = 3575) [id number] POCT PREG TEST DATE ( test code = 3576) 02-24-2023 Lab Interpretation (test cod e = 35437-8) Normal [facility] [id number] 11:20:57* Test Item Value Reference Range Interpretation [...] previously r eported abnormal Pap (accession # [id number]) isreviewed. The atypical cells identified on the [...] TanNUMBER OF TISSUE PIECES: multipleSUBMITTED IN CASSETTE(S): [id number]: FormalinCOMMENTS:Filtered and entirely submitted. B) SPECIMEN LABELED: Cervix, 3 o'clockSIZE/WEIGHT: 0.3x0.2x0.1 cm AggregateSPECIMEN COLOR: TanNUMBER OF TISSUE PIECES: multipleSUBMITTED IN CASSETTE(S): [id number]: FormalinCOMMENTS:Entirely submitted intact. C) SPECIMEN LABELED: Cervix, 6 o'clockSIZE/WEIGHT: 0.3x0.2x0.1 cm SPECIMEN COLOR: TanNUMBER OF TISSUE PIECES: 1SUBMITTED IN CASSETTE(S): [id number]: FormalinCOMMENTS:Entirely submitted intact. D) SPECIMEN LABELED: Cervix, 9 o'clockSIZE/WEIGHT: 0.3x0.2x0.1 cm SPECIMEN COLOR: TanNUMBER OF TISSUE PIECES: 1SUBMITTED IN CASSETTE(S): [id number]: FormalinCOMMENTS:Entirely submitted intact. E) SPECIMEN LABELED: Cervix, 11 o'clockSIZE/WEIGHT: 0.4x0.3x0.3 cm SPECIMEN COLOR: TanNUMBER OF TISSUE PIECES: 1SUBMITTED IN CASSETTE(S): [id number]: FormalinCOMMENTS:Entirely submitted intact. PATHOLOGIST: (test code = 8250) (NOTE) Charisma Powers angelia Specimens processed at [facility], [address] [place] [address], , CLIA: [id number] [facility], [address] [place] [address], , CLIA: [id number] DISCLAIMER (test code = 12407) (NOTE) IHC antibodies a re interpreted in the presence of appropriatelyfunctioning controls unless otherwise noted. CPT: (test code = 8400) (NOTE) 66485h9, 20358w7 UNLESS OTHERWISE INDICATED, ALL TESTING PERFORMED [facility] PATHOLOGY [employer], [facility]. [address] [place] [address] WEB OPERATIONS SPECIALIST: TERRI MCCRARY M.D. CLIA NUMBER [id number] [facility] [place]. [id number] SURGICAL PATHOLOGY [id number] 00:00:00* Test Item Value Reference Range Interpretation Comme nts DIAGNOSIS: (test code = 8200) (NOTE) COMMENTS: (test code = 8205) (NOTE) MICROSCOPIC DESCRIPTION: (te st code = 8210) (NOTE) CLINICAL DATA: (test code = 8401) (NOTE) GROSS DESCRIPTION: (test code = 8220) (NOTE) PATHOLOGIST: (test code = 8250) (NOTE) DISCLAIMER (test code = 43632) (NOTE) CPT: (test code = 8400) (NOTE) Azam Yoni GardenaSURGICAL PATHOLOGY [id number] 00:00:00* Test Item Value Reference Range Interpretation Comme nts DIAGNOSIS: (test code = 8200) (NOTE) COMMENTS: (test code = 8205) (NOTE) MICROSCOPIC DESCRIPTION: (te st code = 8210) (NOTE) CLINICAL DATA: (test code = 8401) (NOTE) GROSS DESCRIPTION: (test code = 8220) (NOTE) PATHOLOGIST: (test code = 8250) (NOTE) DISCLAIMER (test code = 86953) (NOTE) CPT: (test code = 8400) (NOTE) SURGICAL PATHOLOGY [id number] 00:00:00* Test Item Value Reference Range Interpretation Comme nts DIAGNOSIS: (test code = 8200) (NOTE) COMMENTS: (test code = 8205) (NOTE) MICROSCOPIC DESCRIPTION: (te st code = 8210) (NOTE) CLINICAL DATA: (test code = 8401) (NOTE) GROSS DESCRIPTION: (test code = 8220) (NOTE) PATHOLOGIST: (test code = 8250) (NOTE) DISCLAIMER (test code = 45002) (NOTE) CPT: (test code = 8400) (NOTE) SURGICAL PATHOLOGY [id number] 00:00:00* Test Item Value Reference Range Interpretation Comme nts DIAGNOSIS: (test code = 8200) (NOTE) COMMENTS: (test code = 8205) (NOTE) MICROSCOPIC DESCRIPTION: (te st code = 8210) (NOTE) CLINICAL DATA: (test code = 8401) (NOTE) GROSS DESCRIPTION: (test code = 8220) (NOTE) PATHOLOGIST: (test code = 8250) (NOTE) DISCLAIMER (test code = 56979) (NOTE) CPT: (test code = 8400) (NOTE) SURGICAL PATHOLOGY [id number] 00:00:00* Test Item Value Reference Range Interpretation Comme nts DIAGNOSIS: (test code = 8200) (NOTE) COMMENTS: (test code = 8205) (NOTE) MICROSCOPIC DESCRIPTION: (te st code = 8210) (NOTE) CLINICAL DATA: (test code = 8401) (NOTE) GROSS DESCRIPTION: (test code = 8220) (NOTE) PATHOLOGIST: (test code = 8250) (NOTE) DISCLAIMER (test code = 63668) (NOTE) CPT: (test code = 8400) (NOTE) SURGICAL PATHOLOGY [id number] 00:00:00* Test Item Value Reference Range Interpretation Comme nts DIAGNOSIS: (test code = 8200) (NOTE) COMMENTS: (test code = 8205) (NOTE) MICROSCOPIC DESCRIPTION: (te st code = 8210) (NOTE) CLINICAL DATA: (test code = 8401) (NOTE) GROSS DESCRIPTION: (test code = 8220) (NOTE) PATHOLOGIST: (test code = 8250) (NOTE) DISCLAIMER (test code = 02599) (NOTE) CPT: (test code = 8400) (NOTE) SURGICAL PATHOLOGY [id number] 00:00:00* Test Item Value Reference Range Interpretation Comme nts DIAGNOSIS: (test code = 8200) (NOTE) COMMENTS: (test code = 8205) (NOTE) MICROSCOPIC DESCRIPTION: (te st code = 8210) (NOTE) CLINICAL DATA: (test code = 8401) (NOTE) GROSS DESCRIPTION: (test code = 8220) (NOTE) PATHOLOGIST: (test code = 8250) (NOTE) DISCLAIMER (test code = 37037) (NOTE) CPT: (test code = 8400) (NOTE) Azam Vallejo AustinPAP TEST, THINPREP, [id number] 11:12:17* Test Item Value Reference Range Interpretation Comme nts SOURCE: (test code = 8001) Cervical/Endo cervical SLIDES: (test code = 8011) 1 LMP: (test code = 8021) 08/05/2021 SPECIMEN ADEQUACY: (test code = 36712) (NOTE) Satisfactory for evaluation. Endocervical cells/transformation zone component present. INTERPRETATION: (test code = 94102) ASCUS/EPITH. ABNORMALITY; SEE BELOW A -- ---- EPITHELIAL CELL ABNORMALITY Atypical squamous cells of undetermined significance (ASC-US) OTHER COMMENTS: (test code = 8081) (NOTE) Possible celis ges of Herpes virus present. Recommend PCR orculture for confirmation. PCR may be performed on this samplewithin 21 days of collection. Please contact [facility] Customer Serviceat [phone]. TRAFFIC RATE CLERK: (test code = 8101) HAYLIE Anderson(ASC P) PATHOLOGIST INTERPRETATION BY: (test code = 8122) Dylan Holland LOCATION: (test code = 66335) (NOTE) Specimens proces sed at [facility], [address] [place] [address], , CLIA: [id number] interpreted at [facility], [address] [address], , CLIA: [id number] CPT: (test code = 8140) (NOTE) 95577, 95419 UNL ESS OTHERWISE INDICATED, COMPUTER AIDED AND TRAFFIC RATE CLERK SCREENING PERFORMED. The Pap test is a screening test with an inherent, but low probability of error. Your patient should be reminded to consult you immediately if she experiences any suspicious signs or symptoms, regardless of her Pap test result. An alternate report format containing images or consolidated prior Pap history is available as applicable. PAP TEST, THINPREP, [id number] 00:00:00* Test Item Value Reference Range Interpretation Comme nts SOURCE: (test code = 8001) Cervical/Endo cervic al SLIDES: (test code = 8011) 1 LMP: (test code = 8021) 08/05/2021 SPECIMEN ADEQUACY: (test code = 07159) (NOTE) INTERPRETATION: (test code = 18822) ASCUS/EPITH. ABNORMALITY; SEE BELOW OTHER COMMENTS: (test code = 8081) (NOTE) TRAFFIC RATE CLERK: (test code = 8101) HAYLIE Anderson(ASCP) PATHOLOGIST INTERPRETATION BY: (test code = 8122) Dylan Holland LOCATION: (test code = 54918) (NOTE) CPT: (test code = 8140) (NOTE) Azam Yoni DonavonPAP TEST, THINPREP, [id number] 00:00:00* Test Item Value Reference Range Interpretation Comme nts SOURCE: (test code = 8001) Cervical/Endo cervic al SLIDES: (test code = 8011) 1 LMP: (test code = 8021) 08/05/2021 SPECIMEN ADEQUACY: (test code = 96107) (NOTE) INTERPRETATION: (test code = 35645) ASCUS/EPITH. ABNORMALITY; SEE BELOW OTHER COMMENTS: (test code = 8081) (NOTE) TRAFFIC RATE CLERK: (test code = 8101) HAYLIE Anderson(ASCP) PATHOLOGIST INTERPRETATION BY: (test code = 8122) Dylan Holland LOCATION: (test code = 43250) (NOTE) CPT: (test code = 8140) (NOTE) PAP TEST, THINPREP, [id number] 00:00:00* Test Item Value Reference Range Interpretation Comme nts SOURCE: (test code = 8001) Cervical/Endo cervic al SLIDES: (test code = 8011) 1 LMP: (test code = 8021) 08/05/2021 SPECIMEN ADEQUACY: (test code = 42403) (NOTE) INTERPRETATION: (test code = 71917) ASCUS/EPITH. ABNORMALITY; SEE BELOW OTHER COMMENTS: (test code = 8081) (NOTE) TRAFFIC RATE CLERK: (test code = 8101) HAYLIE Anderson(ASCP) PATHOLOGIST INTERPRETATION BY: (test code = 8122) Dylan Holland LOCATION: (test code = 70329) (NOTE) CPT: (test code = 8140) (NOTE) PAP TEST, THINPREP, [id number] 00:00:00* Test Item Value Reference Range Interpretation Comme nts SOURCE: (test code = 8001) Cervical/Endo cervic al SLIDES: (test code = 8011) 1 LMP: (test code = 8021) 08/05/2021 SPECIMEN ADEQUACY: (test code = 02020) (NOTE) INTERPRETATION: (test code = 39007) ASCUS/EPITH. ABNORMALITY; SEE BELOW OTHER COMMENTS: (test code = 8081) (NOTE) TRAFFIC RATE CLERK: (test code = 8101) HAYLIE Anedrson(ASCP) PATHOLOGIST INTERPRETATION BY: (test code = 8122) Dylan Holland LOCATION: (test code = 37955) (NOTE) CPT: (test code = 8140) (NOTE) PAP TEST, THINPREP, [id number] 00:00:00* Test Item Value Reference Range Interpretation Comme nts SOURCE: (test code = 8001) Cervical/Endo cervic al SLIDES: (test code = 8011) 1 LMP: (test code = 8021) 08/05/2021 SPECIMEN ADEQUACY: (test code = 25928) (NOTE) INTERPRETATION: (test code = 45437) ASCUS/EPITH. ABNORMALITY; SEE BELOW OTHER COMMENTS: (test code = 8081) (NOTE) TRAFFIC RATE CLERK: (test code = 8101) HAYLIE Anderson(ASCP) PATHOLOGIST INTERPRETATION BY: (test code = 8122) Dylan Holland LOCATION: (test code = 65131) (NOTE) CPT: (test code = 8140) (NOTE) PAP TEST, THINPREP, [id number] 00:00:00* Test Item Value Reference Range Interpretation Comme nts SOURCE: (test code = 8001) Cervical/Endo cervic al SLIDES: (test code = 8011) 1 LMP: (test code = 8021) 08/05/2021 SPECIMEN ADEQUACY: (test code = 16048) (NOTE) INTERPRETATION: (test code = 62837) ASCUS/EPITH. ABNORMALITY; SEE BELOW OTHER COMMENTS: (test code = 8081) (NOTE) TRAFFIC RATE CLERK: (test code = 8101) HAYLIE Anderson(ASCP) PATHOLOGIST INTERPRETATION BY: (test code = 8122) Dylan oHlland LOCATION: (test code = 98405) (NOTE) CPT: (test code = 8140) (NOTE) PAP TEST, THINPREP, [id number] 00:00:00* Test Item Value Reference Range Interpretation Comme nts SOURCE: (test code = 8001) Cervical/Endo cervic al SLIDES: (test code = 8011) 1 LMP: (test code = 8021) 08/05/2021 SPECIMEN ADEQUACY: (test code = 16384) (NOTE) INTERPRETATION: (test code = 45039) ASCUS/EPITH. ABNORMALITY; SEE BELOW OTHER COMMENTS: (test code = 8081) (NOTE) TRAFFIC RATE CLERK: (test code = 8101) HAYLIE Anderson(ASCP) PATHOLOGIST INTERPRETATION BY: (test code = 8122) Dylan Holland LOCATION: (test code = 42491) (NOTE) CPT: (test code = 8140) (NOTE) Azam Vallejo AustinCT/NG, TMA, [id number] 19:19:14* Test Item Value Reference Range Interpretation Comme nts GONORRHEA, TMA (test code = 08906) NEGATIVE NEGATIVE Assay methodolog y is nucleic acid amplification by bladder changer mediated amplification (TMA) utilizing the Aptima Combo 2 Assay. CHLAMYDIA, TMA (test code = 62176) NEGATIVE NEGATIVE Assay methodolog y is nucleic acid amplification by bladder changer mediated amplification (TMA) utilizing the Aptima Combo 2 Assay. HPV HIGH RISK WITH GENOTYPE, [id number] 16:29:18* Test Item Value Reference Range Interpretation Comme nts HPV HIGH RISK INTERP (test code = 10153) POSITIVE NEGATIVE A HPV 16 (test code = 89140) NEGATIVE HPV 18 (test code = 95184) NEGATIVE HPV, HR, OTHER GENOTYPES (test code = 35911) POSITIVE A Testing methodol ogy is real-time [...] error. UNLESS OTHERWISE INDICATED, ALL TESTING PERFORMED [facility] [employer] PATHOLOG[facility] [employer] [address] [place] [address] WEB OPERATIONS SPECIALIST: TERRI MCCRARY M.D. CLIA NUMBER [id number] [place]. [id number] VAGINAL PATHOGENS DNA [id number] 14:49:20* Test Item Value Reference Range Interpretation Comme nts DWIGHT SPECIES (test code = 34091) NEGATIVE NEGATIVE G. VAGINALIS (test code = 48190) POSITIVE NEGATIVE A T. VAGINALIS (test code = 96386) NEGATIVE NEGATIVE UNLESS OTHERWISE INDICATED, ALL TESTING PERFORMED [facility], [facility]. [address] [place] [address] WEB OPERATIONS SPECIALIST: TERRI MCCRARY M.D. CLIA NUMBER [id number] [place]. [id number] HIV 1/2 4TH GEN, RFLX [id number] 05:59:23* Test Item Value Reference Range Interpretation Comme nts HIV 1/2 4TH GEN, RFLX CONF ( test code = 3514) NON-REACTIVE NON-REACTIVE HEPATITIS PANEL, [id number] 05:59:23* Test Item Value Reference Range Interpretation Comme nts HEPATITIS A IgM (test code = 03431) NON-REACTIVE NON-REACTIVE HEPATITIS B CORE IgM (test code = 4644) NON-REACTIVE NON-REACTIVE HEPATITIS B SURF AG (test code = 2739) NON-REACTIVE NON-REACTIVE HEPATITIS C ANTIBODY (test code = 4675) NON-REACTIVE NON-REACTIVE INTERPRETATION HEPATITIS A: (test code = 2552) (NOTE) Hepatitis A serology shows no evidence of acute hepatitis A. INTERPRETATION HEPATITIS B: (test code = 52010) (NOTE) Hepatitis B serology shows no evidence of acute hepatitis B andno indication of exposure to hepatitis B virus in the previous kiko eight months. INTERPRETATION HEPATITIS C: (test code = 19119) (NOTE) Hepatitis C serology shows no evidence of exposure to hepatitisC virus at this time. It can take up to 12 months after exposure tothe hepatitis C virus for antibodies to become detectable in the blood in certain patients. [id number] 05:28:14* Test Item Value Reference Range Interpretation Comme nts RPR RESULT (test code = 3501) NON-REACTIVE NON-REACTIVE RPR TITER (test code = 3500) NOT INDIC. TITER NOT INDIC. [id number] 00:00:00* Test Item Value Reference Range Interpretation Comme nts RPR RESULT (test code = 3501) NON-REACTIVE RPR TITER (test code = 3500) NOT INDIC. TITER Azam RaphaelHPV HIGH RISK WITH GENOTYPE, [id number] 00:00:00* Test Item Value Reference Range Interpretation Comme nts HPV HIGH RISK INTERP (test c ode = 61974) POSITIVE HPV 16 (test code = 94416) NEGATIVE HPV 18 (test code = 74456) NEGATIVE HPV, HR, OTHER GENOTYPES (te st code = 03058) POSITIVE Azam RaphaelVAGINAL PATHOGENS DNA PANEL [ADDED]2021-08-16 00:00:00* Test Item Value Reference Range Interpretation Comme nts DWIGHT SPECIES (test code = 30893) NEGATIVE G. VAGINALIS (test code = ) POSITIVE T. VAGINALIS (test code = ) NEGATIVE Azam RaphaelHIV AB/AG COMBO RFLX [id number] 00:00:00* Test Item Value Reference Range Interpretation Comme nts HIV 1/2 4TH GEN, RFLX CONF ( test code = 3514) NON-REACTIVE Azam RaphaelGC AND CHLAMYDIA AMPLIFIED, [id number] 00:00:00* Test Item Value Reference Range Interpretation Comme nts GONORRHEA, TMA (test code = 55358) NEGATIVE CHLAMYDIA, TMA (test code = 24944) NEGATIVE Azam RaphaelACUTE HEPATITIS [id number] 00:00:00* Test Item Value Reference Range Interpretation Comme nts HEPATITIS A IgM (test code = 44194) NON-REACTIVE HEPATITIS B CORE IgM (test c ode = 4644) NON-REACTIVE HEPATITIS B SURF AG (test co de = 2739) NON-REACTIVE HEPATITIS C ANTIBODY (test c ode = 4675) NON-REACTIVE INTERPRETATION HEPATITIS A: (test code = 2552) (NOTE) INTERPRETATION HEPATITIS B: (test code = 75177) (NOTE) INTERPRETATION HEPATITIS C: (test code = 36015) (NOTE) Azam [id number] 00:00:00* Test Item Value Reference Range Interpretation Comme nts RPR RESULT (test code = 3501) NON-REACTIVE RPR TITER (test code = 3500) NOT INDIC. TITER Azam RaphaelHPV HIGH RISK WITH GENOTYPE, [id number] 00:00:00* Test Item Value Reference Range Interpretation Comme nts HPV HIGH RISK INTERP (test c ode = 47644) POSITIVE HPV 16 (test code = 11668) NEGATIVE HPV 18 (test code = 88821) NEGATIVE HPV, HR, OTHER GENOTYPES (te st code = 51114) POSITIVE Azam RaphaelVAGINAL PATHOGENS DNA PANEL [ADDED]2021-08-16 00:00:00* Test Item Value Reference Range Interpretation Comme nts DWIGHT SPECIES (test code = 45328) NEGATIVE G. VAGINALIS (test code = 84098) POSITIVE T. VAGINALIS (test code = 18384) NEGATIVE Azam RaphaelGC AND CHLAMYDIA AMPLIFIED, [id number] 00:00:00* Test Item Value Reference Range Interpretation Comme nts GONORRHEA, TMA (test code = 37088) NEGATIVE CHLAMYDIA, TMA (test code = 67239) NEGATIVE Azam RaphaelHIV AB/AG COMBO RFLX [id number] 00:00:00* Test Item Value Reference Range Interpretation Comme nts HIV 1/2 4TH GEN, RFLX CONF ( test code = 3514) NON-REACTIVE GC AND CHLAMYDIA AMPLIFIED, [id number] 00:00:00* Test Item Value Reference Range Interpretation Comme nts GONORRHEA, TMA (test code = 36127) NEGATIVE CHLAMYDIA, TMA (test code = 60000) NEGATIVE ACUTE HEPATITIS [id number] 00:00:00* Test Item Value Reference Range Interpretation Comme nts HEPATITIS A IgM (test code = 92126) NON-REACTIVE HEPATITIS B CORE IgM (test c ode = 4644) NON-REACTIVE HEPATITIS B SURF AG (test co de = 2739) NON-REACTIVE HEPATITIS C ANTIBODY (test c ode = 4675) NON-REACTIVE INTERPRETATION HEPATITIS A: (test code = 2552) (NOTE) INTERPRETATION HEPATITIS B: (test code = 58797) (NOTE) INTERPRETATION HEPATITIS C: (test code = 78409) (NOTE) HPV HIGH RISK WITH GENOTYPE, [id number] 00:00:00* Test Item Value Reference Range Interpretation Comme nts HPV HIGH RISK INTERP (test c ode = 46325) POSITIVE HPV 16 (test code = 11088) NEGATIVE HPV 18 (test code = 83056) NEGATIVE HPV, HR, OTHER GENOTYPES (te st code = 34838) POSITIVE [id number] 00:00:00* Test Item Value Reference Range Interpretation Comme nts RPR RESULT (test code = 3501) NON-REACTIVE RPR TITER (test code = 3500) NOT INDIC. TITER [id number] 00:00:00* Test Item Value Reference Range Interpretation Comme nts RPR RESULT (test code = 3501) NON-REACTIVE RPR TITER (test code = 3500) NOT INDIC. TITER VAGINAL PATHOGENS DNA PANEL [ADDED]2021-08-16 00:00:00* Test Item Value Reference Range Interpretation Comme nts DWIGHT SPECIES (test code = 51492) NEGATIVE G. VAGINALIS (test code = 26981) POSITIVE T. VAGINALIS (test code = 21858) NEGATIVE HIV AB/AG COMBO RFLX [id number] 00:00:00* Test Item Value Reference Range Interpretation Comme nts HIV 1/2 4TH GEN, RFLX CONF ( test code = 3514) NON-REACTIVE GC AND CHLAMYDIA AMPLIFIED, [id number] 00:00:00* Test Item Value Reference Range Interpretation Comme nts GONORRHEA, TMA (test code = 62453) NEGATIVE CHLAMYDIA, TMA (test code = 87214) NEGATIVE GC AND CHLAMYDIA AMPLIFIED, [id number] 00:00:00* Test Item Value Reference Range Interpretation Comme nts GONORRHEA, TMA (test code = 80375) NEGATIVE CHLAMYDIA, TMA (test code = 40111) NEGATIVE HIV AB/AG COMBO RFLX [id number] 00:00:00* Test Item Value Reference Range Interpretation Comme nts HIV 1/2 4TH GEN, RFLX CONF ( test code = 3514) NON-REACTIVE ACUTE HEPATITIS [id number] 00:00:00* Test Item Value Reference Range Interpretation Comme nts HEPATITIS A IgM (test code = 11501) NON-REACTIVE HEPATITIS B CORE IgM (test c ode = 4644) NON-REACTIVE HEPATITIS B SURF AG (test co de = 2739) NON-REACTIVE HEPATITIS C ANTIBODY (test c ode = 4675) NON-REACTIVE INTERPRETATION HEPATITIS A: (test code = 2552) (NOTE) INTERPRETATION HEPATITIS B: (test code = 25565) (NOTE) INTERPRETATION HEPATITIS C: (test code = 27551) (NOTE) ACUTE HEPATITIS [id number] 00:00:00* Test Item Value Reference Range Interpretation Comme nts HEPATITIS A IgM (test code = 50332) NON-REACTIVE HEPATITIS B CORE IgM (test c ode = 4644) NON-REACTIVE HEPATITIS B SURF AG (test co de = 2739) NON-REACTIVE HEPATITIS C ANTIBODY (test c ode = 4675) NON-REACTIVE INTERPRETATION HEPATITIS A: (test code = 2552) (NOTE) INTERPRETATION HEPATITIS B: (test code = 41744) (NOTE) INTERPRETATION HEPATITIS C: (test code = 67414) (NOTE) [id number] 00:00:00* Test Item Value Reference Range Interpretation Comme nts RPR RESULT (test code = 3501) NON-REACTIVE RPR TITER (test code = 3500) NOT INDIC. TITER HPV HIGH RISK WITH GENOTYPE, [id number] 00:00:00* Test Item Value Reference Range Interpretation Comme nts HPV HIGH RISK INTERP (test c ode = 79225) POSITIVE HPV 16 (test code = 62973) NEGATIVE HPV 18 (test code = 61818) NEGATIVE HPV, HR, OTHER GENOTYPES (te st code = 05126) POSITIVE HPV HIGH RISK WITH GENOTYPE, [id number] 00:00:00* Test Item Value Reference Range Interpretation Comme nts HPV HIGH RISK INTERP (test c ode = 98749) POSITIVE HPV 16 (test code = 17892) NEGATIVE HPV 18 (test code = 14653) NEGATIVE HPV, HR, OTHER GENOTYPES (te st code = 36669) POSITIVE [id number] 00:00:00* Test Item Value Reference Range Interpretation Comme nts RPR RESULT (test code = 3501) NON-REACTIVE RPR TITER (test code = 3500) NOT INDIC. TITER [id number] 00:00:00* Test Item Value Reference Range Interpretation Comme nts RPR RESULT (test code = 3501) NON-REACTIVE RPR TITER (test code = 3500) NOT INDIC. TITER VAGINAL PATHOGENS DNA PANEL [ADDED]2021-08-16 00:00:00* Test Item Value Reference Range Interpretation Comme nts DWIGHT SPECIES (test code = ) NEGATIVE G. VAGINALIS (test code = 76253) POSITIVE T. VAGINALIS (test code = 45903) NEGATIVE VAGINAL PATHOGENS DNA PANEL [ADDED]2021-08-16 00:00:00* Test Item Value Reference Range Interpretation Comme nts DWIGHT SPECIES (test code = ) NEGATIVE G. VAGINALIS (test code = 26519) POSITIVE T. VAGINALIS (test code = 82090) NEGATIVE HIV AB/AG COMBO RFLX [id number] 00:00:00* Test Item Value Reference Range Interpretation Comme nts HIV 1/2 4TH GEN, RFLX CONF ( test code = 3514) NON-REACTIVE HIV AB/AG COMBO RFLX [id number] 00:00:00* Test Item Value Reference Range Interpretation Comme nts HIV 1/2 4TH GEN, RFLX CONF ( test code = 3514) NON-REACTIVE GC AND CHLAMYDIA AMPLIFIED, [id number] 00:00:00* Test Item Value Reference Range Interpretation Comme nts GONORRHEA, TMA (test code = 36330) NEGATIVE CHLAMYDIA, TMA (test code = 50870) NEGATIVE GC AND CHLAMYDIA AMPLIFIED, [id number] 00:00:00* Test Item Value Reference Range Interpretation Comme nts GONORRHEA, TMA (test code = 29049) NEGATIVE CHLAMYDIA, TMA (test code = 62094) NEGATIVE ACUTE HEPATITIS [id number] 00:00:00* Test Item Value Reference Range Interpretation Comme nts HEPATITIS A IgM (test code = 75547) NON-REACTIVE HEPATITIS B CORE IgM (test c ode = 4644) NON-REACTIVE HEPATITIS B SURF AG (test co de = 2739) NON-REACTIVE HEPATITIS C ANTIBODY (test c ode = 4675) NON-REACTIVE INTERPRETATION HEPATITIS A: (test code = 2552) (NOTE) INTERPRETATION HEPATITIS B: (test code = 70460) (NOTE) INTERPRETATION HEPATITIS C: (test code = 09179) (NOTE) ACUTE HEPATITIS [id number] 00:00:00* Test Item Value Reference Range Interpretation Comme nts HEPATITIS A IgM (test code = 14139) NON-REACTIVE HEPATITIS B CORE IgM (test c ode = 4644) NON-REACTIVE HEPATITIS B SURF AG (test co de = 2739) NON-REACTIVE HEPATITIS C ANTIBODY (test c ode = 4675) NON-REACTIVE INTERPRETATION HEPATITIS A: (test code = 2552) (NOTE) INTERPRETATION HEPATITIS B: (test code = 23614) (NOTE) INTERPRETATION HEPATITIS C: (test code = 43161) (NOTE) [id number] 00:00:00* Test Item Value Reference Range Interpretation Comme nts RPR RESULT (test code = 3501) NON-REACTIVE RPR TITER (test code = 3500) NOT INDIC. TITER [id number] 00:00:00* Test Item Value Reference Range Interpretation Comme nts RPR RESULT (test code = 3501) NON-REACTIVE RPR TITER (test code = 3500) NOT INDIC. TITER HPV HIGH RISK WITH GENOTYPE, [id number] 00:00:00* Test Item Value Reference Range Interpretation Comme nts HPV HIGH RISK INTERP (test c ode = 21894) POSITIVE HPV 16 (test code = 30218) NEGATIVE HPV 18 (test code = 23097) NEGATIVE HPV, HR, OTHER GENOTYPES (te st code = 25938) POSITIVE HPV HIGH RISK WITH GENOTYPE, [id number] 00:00:00* Test Item Value Reference Range Interpretation Comme nts HPV HIGH RISK INTERP (test c ode = 98894) POSITIVE HPV 16 (test code = 23719) NEGATIVE HPV 18 (test code = 52934) NEGATIVE HPV, HR, OTHER GENOTYPES (te st code = 77039) POSITIVE [id number] 00:00:00* Test Item Value Reference Range Interpretation Comme nts RPR RESULT (test code = 3501) NON-REACTIVE RPR TITER (test code = 3500) NOT INDIC. TITER VAGINAL PATHOGENS DNA PANEL [ADDED]2021-08-16 00:00:00* Test Item Value Reference Range Interpretation Comme nts DWIGHT SPECIES (test code = ) NEGATIVE G. VAGINALIS (test code = 82112) POSITIVE T. VAGINALIS (test code = 95206) NEGATIVE VAGINAL PATHOGENS DNA PANEL [ADDED]2021-08-16 00:00:00* Test Item Value Reference Range Interpretation Comme nts DWIGHT SPECIES (test code = ) NEGATIVE G. VAGINALIS (test code = 28649) POSITIVE T. VAGINALIS (test code = 41948) NEGATIVE HIV AB/AG COMBO RFLX [id number] 00:00:00* Test Item Value Reference Range Interpretation Comme nts HIV 1/2 4TH GEN, RFLX CONF ( test code = 3514) NON-REACTIVE Azam RaphaelTERI HEPATITIS [id number] 00:00:00* Test Item Value Reference Range Interpretation Comme nts HEPATITIS A IgM (test code = 40685) NON-REACTIVE HEPATITIS B CORE IgM (test c ode = 4644) NON-REACTIVE HEPATITIS B SURF AG (test co de = 2739) NON-REACTIVE HEPATITIS C ANTIBODY (test c ode = 4675) NON-REACTIVE INTERPRETATION HEPATITIS A: (test code = 2552) (NOTE) INTERPRETATION HEPATITIS B: (test code = 95290) (NOTE) INTERPRETATION HEPATITIS C: (test code = 70873) (NOTE) Azam Vallejo DonavonCBC W/AUTO DIFF WITH [id number] 12:09:41* Test Item Value Reference Range Interpretation [...] = 1065) 0.0 /100 WBC'S See_Comment [Autom[employer]] The system which generated this result [...] 0.00-0.10 ABS NUCLEATED RBCS (test code = 94385) 0.00 K/UL 0.00-0.11 TSH, THIRD [id number] 06:48:11* Test Item Value Reference Range Interpretation Comme nts TSH, THIRD GENERATION (test code = 2821) 1.130 UIU/ML 0.400-4.100 UNLESS OTHERWISE INDICATED, ALL TESTING PERFORMED [facility] [address] [place] [id number] WEB OPERATIONS SPECIALIST: TERRI MCCRARY M.D. [facility] NUMBER [id number] [facility] [place]. [id number] LIPID [id number] 06:12:16* Test Item Value Reference Range Interpretation [...] SPECIMENS. FOR MOREINFORMATION, SEE CLIENT ANNOUNCEMENT AT [email or web address] [email or web address] RATIO LDL/HDL (test code = 2238) 2.13 RATIO <3.22 COMPREHENSIVE METABOLIC [id number] 06:12:16* Test Item Value Reference Range Interpretation Comme nts GLUCOSE (test code = 2217) 89 MG/DL 70-99 BUN (test code = 2208) 12 MG/DL 6-20 CREATININE (test code = 2214) 0.52 MG/DL 0.60-1.30 L eGFR (2020 CKD-EPI) (test code = 49910) 127 ML/MIN/1.73 >60 CALC BUN/CREAT (test code = 2235) 23 RATIO 6-28 SODIUM (test code = 2231) 138 MEQ/L 133-146 POTASSIUM (test code = 2228) 4.0 MEQ/L 3.5-5.4 CHLORIDE (test code = 2215) 103 MEQ/L 95-107 CARBON DIOXIDE (test code = 2206) 22 MEQ/L 19-31 CALCIUM (test code = 2209) 9.6 MG/DL 8.5-10.5 PROTEIN, TOTAL (test code = 222) 7.0 G/DL 6.1-8.3 ALBUMIN (test code = [...] (test code = 2219) 12 U/L 5-40 COMPREHENSIVE METABOLIC [id number] 00:00:00* Test Item Value Reference Range Interpretation Comme nts GLUCOSE (test code = 2217) 89 MG/DL BUN (test code = 2208) 12 MG/DL CREATININE (test code = 2214) 0.52 MG/DL eGFR (2020 CKD-EPI) (test code = 13641) 127 ML/MIN/1.73 CALC BUN/CREAT (test code = [...] (test code = 2219) 12 U/L Azam [id number] 00:00:00* Test Item Value Reference Range Interpretation Comme nts TSH, THIRD GENERATION (test code = 2821) 1.130 UIU/ML Azam RaphaelCBC W/AUTO [id number] 00:00:00* Test Item Value Reference Range Interpretation [...] ABS NUCLEATED RBCS (test cod e = 55434) 0.00 K/UL Azam Vallejo AustinLIPID [id number] 00:00:00* Test Item Value Reference Range Interpretation Comme nts CHOLESTEROL (test code = 2210) 192 MG/DL TRIGLYCERIDES (test code = 2232) 78 MG/DL HDL CHOLESTEROL (test code = 2220) 56 MG/DL CALC LDL CHOL (test code = 2237) 119 MG/DL RISK RATIO LDL/HDL (test cod e = 2238) 2.13 RATIO Azam Vallejo DonavonCOMPREHENSIVE METABOLIC [id number] 00:00:00* Test Item Value Reference Range Interpretation Comme nts GLUCOSE (test code = 2217) 89 MG/DL BUN (test code = 2208) 12 MG/DL CREATININE (test code = 2214) 0.52 MG/DL eGFR (2020 CKD-EPI) (test code = 69900) 127 ML/MIN/1.73 CALC BUN/CREAT (test code = [...] (test code = 2219) 12 U/L Azam [id number] 00:00:00* Test Item Value Reference Range Interpretation Comme nts TSH, THIRD GENERATION (test code = 2821) 1.130 UIU/ML Azam RaphaelCBC W/AUTO [id number] 00:00:00* Test Item Value Reference Range Interpretation [...] ABS NUCLEATED RBCS (test cod e = 11971) 0.00 K/UL Azam RaphaelCBC W/AUTO [id number] 00:00:00* Test Item Value Reference Range Interpretation [...] ABS NUCLEATED RBCS (test cod e = 95724) 0.00 K/UL CBC W/AUTO [id number] 00:00:00* Test Item Value Reference Range Interpretation [...] ABS NUCLEATED RBCS (test cod e = 58878) 0.00 K/UL LIPID [id number] 00:00:00* Test Item Value Reference Range Interpretation Comme nts CHOLESTEROL (test code = 2210) 192 MG/DL TRIGLYCERIDES (test code = 2232) 78 MG/DL HDL CHOLESTEROL (test code = 2220) 56 MG/DL CALC LDL CHOL (test code = 2237) 119 MG/DL RISK RATIO LDL/HDL (test cod e = 2238) 2.13 RATIO COMPREHENSIVE METABOLIC [id number] 00:00:00* Test Item Value Reference Range Interpretation Comme nts GLUCOSE (test code = 2217) 89 MG/DL BUN (test code = 2208) 12 MG/DL CREATININE (test code = 2214) 0.52 MG/DL eGFR (2020 CKD-EPI) (test code = 50607) 127 ML/MIN/1.73 CALC BUN/CREAT (test code = [...] ALT (test code = 2219) 12 U/L [id number] 00:00:00* Test Item Value Reference Range Interpretation Comme nts TSH, THIRD GENERATION (test code = 2821) 1.130 UIU/ML [id number] 00:00:00* Test Item Value Reference Range Interpretation Comme nts TSH, THIRD GENERATION (test code = 2821) 1.130 UIU/ML CBC W/AUTO [id number] 00:00:00* Test Item Value Reference Range Interpretation [...] ABS NUCLEATED RBCS (test cod e = 72647) 0.00 K/UL CBC W/AUTO [id number] 00:00:00* Test Item Value Reference Range Interpretation [...] ABS NUCLEATED RBCS (test cod e = 62025) 0.00 K/UL CBC W/AUTO [id number] 00:00:00* Test Item Value Reference Range Interpretation [...] ABS NUCLEATED RBCS (test cod e = 63446) 0.00 K/UL LIPID [id number] 00:00:00* Test Item Value Reference Range Interpretation Comme nts CHOLESTEROL (test code = 2210) 192 MG/DL TRIGLYCERIDES (test code = 2232) 78 MG/DL HDL CHOLESTEROL (test code = 2220) 56 MG/DL CALC LDL CHOL (test code = 2237) 119 MG/DL RISK RATIO LDL/HDL (test cod e = 2238) 2.13 RATIO LIPID [id number] 00:00:00* Test Item Value Reference Range Interpretation Comme nts CHOLESTEROL (test code = 2210) 192 MG/DL TRIGLYCERIDES (test code = 2232) 78 MG/DL HDL CHOLESTEROL (test code = 2220) 56 MG/DL CALC LDL CHOL (test code = 2237) 119 MG/DL RISK RATIO LDL/HDL (test cod e = 2238) 2.13 RATIO COMPREHENSIVE METABOLIC [id number] 00:00:00* Test Item Value Reference Range Interpretation Comme nts GLUCOSE (test code = 2217) 89 MG/DL BUN (test code = 2208) 12 MG/DL CREATININE (test code = 2214) 0.52 MG/DL eGFR (2020 CKD-EPI) (test code = 51955) 127 ML/MIN/1.73 CALC BUN/CREAT (test code = [...] code = 2219) 12 U/L COMPREHENSIVE METABOLIC [id number] 00:00:00* Test Item Value Reference Range Interpretation Comme nts GLUCOSE (test code = 2217) 89 MG/DL BUN (test code = 2208) 12 MG/DL CREATININE (test code = 2214) 0.52 MG/DL eGFR (2020 CKD-EPI) (test code = 53860) 127 ML/MIN/1.73 CALC BUN/CREAT (test code = [...] ALT (test code = 2219) 12 U/L [id number] 00:00:00* Test Item Value Reference Range Interpretation Comme nts TSH, THIRD GENERATION (test code = 2821) 1.130 UIU/ML [id number] 00:00:00* Test Item Value Reference Range Interpretation Comme nts TSH, THIRD GENERATION (test code = 2821) 1.130 UIU/ML [id number] 00:00:00* Test Item Value Reference Range Interpretation Comme nts TSH, THIRD GENERATION (test code = 2821) 1.130 UIU/ML CBC W/AUTO [id number] 00:00:00* Test Item Value Reference Range Interpretation [...] ABS NUCLEATED RBCS (test cod e = 73806) 0.00 K/UL CBC W/AUTO [id number] 00:00:00* Test Item Value Reference Range Interpretation [...] ABS NUCLEATED RBCS (test cod e = 87244) 0.00 K/UL CBC W/AUTO [id number] 00:00:00* Test Item Value Reference Range Interpretation [...] ABS NUCLEATED RBCS (test cod e = 19276) 0.00 K/UL LIPID [id number] 00:00:00* Test Item Value Reference Range Interpretation Comme nts CHOLESTEROL (test code = 2210) 192 MG/DL TRIGLYCERIDES (test code = 2232) 78 MG/DL HDL CHOLESTEROL (test code = 2220) 56 MG/DL CALC LDL CHOL (test code = 2237) 119 MG/DL RISK RATIO LDL/HDL (test cod e = 2238) 2.13 RATIO LIPID [id number] 00:00:00* Test Item Value Reference Range Interpretation Comme nts CHOLESTEROL (test code = 2210) 192 MG/DL TRIGLYCERIDES (test code = 2232) 78 MG/DL HDL CHOLESTEROL (test code = 2220) 56 MG/DL CALC LDL CHOL (test code = 2237) 119 MG/DL RISK RATIO LDL/HDL (test cod e = 2238) 2.13 RATIO COMPREHENSIVE METABOLIC [id number] 00:00:00* Test Item Value Reference Range Interpretation Comme nts GLUCOSE (test code = 2217) 89 MG/DL BUN (test code = 2208) 12 MG/DL CREATININE (test code = 2214) 0.52 MG/DL eGFR (2020 CKD-EPI) (test code = 75362) 127 ML/MIN/1.73 CALC BUN/CREAT (test code = [...] code = 2219) 12 U/L COMPREHENSIVE METABOLIC [id number] 00:00:00* Test Item Value Reference Range Interpretation Comme nts GLUCOSE (test code = 2217) 89 MG/DL BUN (test code = 2208) 12 MG/DL CREATININE (test code = 2214) 0.52 MG/DL eGFR (2020 CKD-EPI) (test code = 13582) 127 ML/MIN/1.73 CALC BUN/CREAT (test code = [...] ALT (test code = 2219) 12 U/L [id number] 00:00:00* Test Item Value Reference Range Interpretation Comme nts TSH, THIRD GENERATION (test code = 2821) 1.130 UIU/ML [id number] 00:00:00* Test Item Value Reference Range Interpretation Comme nts TSH, THIRD GENERATION (test code = 2821) 1.130 UIU/ML [id number] 00:00:00* Test Item Value Reference Range Interpretation Comme nts TSH, THIRD GENERATION (test code = 2821) 1.130 UIU/ML LIPID [id number] 00:00:00* Test Item Value Reference Range Interpretation Comme nts CHOLESTEROL (test code = 2210) 192 MG/DL TRIGLYCERIDES (test code = 2232) 78 MG/DL HDL CHOLESTEROL (test code = 2220) 56 MG/DL CALC LDL CHOL (test code = 2237) 119 MG/DL RISK RATIO LDL/HDL (test cod e = 2238) 2.13 RATIO Azam Vallejo [id number] (COVID-19) by RT-PCR (HIGH RISK)2021-02-01 00:00:00* Test Item Value Reference Range Interpretation Comme nts SARS-CoV-2 INTERPRETATION (t est code = 64476) NEGATIVE SOURCE (test code = 60489) NOT SPECIFIED Azam Vallejo [id number] (COVID-19) by RT-PCR (HIGH RISK)2021-02-01 00:00:00* Test Item Value Reference Range Interpretation Comme nts SARS-CoV-2 INTERPRETATION (t est code = 03369) NEGATIVE SOURCE (test code = 38245) NOT SPECIFIED SARS-CoV-2 (COVID-19) by RT-PCR (HIGH RISK)2021-02-01 00:00:00* Test Item Value Reference Range Interpretation Comme nts SARS-CoV-2 INTERPRETATION (t est code = 72741) NEGATIVE SOURCE (test code = 69235) NOT SPECIFIED SARS-CoV-2 (COVID-19) by RT-PCR (HIGH RISK)2021-02-01 00:00:00* Test Item Value Reference Range Interpretation Comme nts SARS-CoV-2 INTERPRETATION (t est code = 58440) NEGATIVE SOURCE (test code = 64613) NOT SPECIFIED SARS-CoV-2 (COVID-19) by RT-PCR (HIGH RISK)2021-02-01 00:00:00* Test Item Value Reference Range Interpretation Comme nts SARS-CoV-2 INTERPRETATION (t est code = 63494) NEGATIVE SOURCE (test code = 33559) NOT SPECIFIED SARS-CoV-2 (COVID-19) by RT-PCR (HIGH RISK)2021-02-01 00:00:00* Test Item Value Reference Range Interpretation Comme nts SARS-CoV-2 INTERPRETATION (t est code = 20099) NEGATIVE SOURCE (test code = 45042) NOT SPECIFIED SARS-CoV-2 (COVID-19) by RT-PCR (HIGH RISK)2021-02-01 00:00:00* Test Item Value Reference Range Interpretation Comme nts SARS-CoV-2 INTERPRETATION (t est code = 51879) NEGATIVE SOURCE (test code = 27380) NOT SPECIFIED Azam [id number] 00:00:00* Test Item Value Reference Range Interpretation Comme nts TSH, THIRD GENERATION (test code = 2821) 1.640 UIU/ML Azam RaphaelTRICHOMONAS, URINE, [id number] 00:00:00* Test Item Value Reference Range Interpretation Comme nts TRICHOMONAS, NAAT (test code = 68255) NEGATIVE Azam RaphaelCBC W/AUTO [id number] 00:00:00* Test Item Value Reference Range Interpretation [...] = 1015) 280 K/UL Azam RaphaelCOMPREHENSIVE METABOLIC [id number] 00:00:00* Test Item Value Reference Range Interpretation Comme nts GLUCOSE (test code = 2217) 112 MG/DL BUN (test code = 2208) 14 MG/DL CREATININE (test code = 2214) 0.90 MG/DL eGFR AMER. (test cod e = 59323) 99 ML/MIN/1.73 eGFR NON- AMER. (test code = 44930) 85 ML/MIN/1.73 CALC BUN/CREAT (test code = [...] MG/DL ALKALINE PHOSPHATASE (test code = 220) 105 U/L AST (test code = 221) 20 U/L ALT (test code = 221) 22 U/L Azam [id number] 00:00:00* Test Item Value Reference Range Interpretation Comme nts TSH, THIRD GENERATION (test code = 2821) 1.640 UIU/ML Azam RapahelTRICHOMONAS, URINE, [id number] 00:00:00* Test Item Value Reference Range Interpretation Comme nts TRICHOMONAS, NAAT (test code = 91439) NEGATIVE Azam RaphaelCBC W/AUTO [id number] 00:00:00* Test Item Value Reference Range Interpretation [...] code = 1015) 280 K/UL CBC W/AUTO [id number] 00:00:00* Test Item Value Reference Range Interpretation [...] code = 1015) 280 K/UL COMPREHENSIVE METABOLIC [id number] 00:00:00* Test Item Value Reference Range Interpretation Comme nts GLUCOSE (test code = 2217) 112 MG/DL BUN (test code = 2208) 14 MG/DL CREATININE (test code = 2214) 0.90 MG/DL eGFR AMER. (test cod e = 45247) 99 ML/MIN/1.73 eGFR NON- AMER. (test code = 47025) 85 ML/MIN/1.73 CALC BUN/CREAT (test code = [...] ALT (test code = 2219) 22 U/L [id number] 00:00:00* Test Item Value Reference Range Interpretation Comme nts TSH, THIRD GENERATION (test code = 2821) 1.640 UIU/ML [id number] 00:00:00* Test Item Value Reference Range Interpretation Comme nts TSH, THIRD GENERATION (test code = 2821) 1.640 UIU/ML TRICHOMONAS, URINE, [id number] 00:00:00* Test Item Value Reference Range Interpretation Comme nts TRICHOMONAS, NAAT (test code = 80254) NEGATIVE CBC W/AUTO [id number] 00:00:00* Test Item Value Reference Range Interpretation [...] code = 1015) 280 K/UL CBC W/AUTO [id number] 00:00:00* Test Item Value Reference Range Interpretation [...] code = 1015) 280 K/UL CBC W/AUTO [id number] 00:00:00* Test Item Value Reference Range Interpretation [...] code = 1015) 280 K/UL COMPREHENSIVE METABOLIC [id number] 00:00:00* Test Item Value Reference Range Interpretation Comme nts GLUCOSE (test code = 2217) 112 MG/DL BUN (test code = 2208) 14 MG/DL CREATININE (test code = 2214) 0.90 MG/DL eGFR AMER. (test cod e = 03045) 99 ML/MIN/1.73 eGFR NON- AMER. (test code = 32457) 85 ML/MIN/1.73 CALC BUN/CREAT (test code = [...] code = 2219) 22 U/L COMPREHENSIVE METABOLIC [id number] 00:00:00* Test Item Value Reference Range Interpretation Comme nts GLUCOSE (test code = 2217) 112 MG/DL BUN (test code = 2208) 14 MG/DL CREATININE (test code = 2214) 0.90 MG/DL eGFR AMER. (test cod e = 93737) 99 ML/MIN/1.73 eGFR NON- AMER. (test code = 39955) 85 ML/MIN/1.73 CALC BUN/CREAT (test code = [...] ALT (test code = 2219) 22 U/L [id number] 00:00:00* Test Item Value Reference Range Interpretation Comme nts TSH, THIRD GENERATION (test code = 2821) 1.640 UIU/ML [id number] 00:00:00* Test Item Value Reference Range Interpretation Comme nts TSH, THIRD GENERATION (test code = 2821) 1.640 UIU/ML [id number] 00:00:00* Test Item Value Reference Range Interpretation Comme nts TSH, THIRD GENERATION (test code = 2821) 1.640 UIU/ML TRICHOMONAS, URINE, [id number] 00:00:00* Test Item Value Reference Range Interpretation Comme nts TRICHOMONAS, NAAT (test code = 64679) NEGATIVE TRICHOMONAS, URINE, [id number] 00:00:00* Test Item Value Reference Range Interpretation Comme nts TRICHOMONAS, NAAT (test code = 58381) NEGATIVE CBC W/AUTO [id number] 00:00:00* Test Item Value Reference Range Interpretation [...] code = 1015) 280 K/UL CBC W/AUTO [id number] 00:00:00* Test Item Value Reference Range Interpretation [...] code = 1015) 280 K/UL CBC W/AUTO [id number] 00:00:00* Test Item Value Reference Range Interpretation [...] code = 1015) 280 K/UL COMPREHENSIVE METABOLIC [id number] 00:00:00* Test Item Value Reference Range Interpretation Comme nts GLUCOSE (test code = 2217) 112 MG/DL BUN (test code = 2208) 14 MG/DL CREATININE (test code = 2214) 0.90 MG/DL eGFR AMER. (test cod e = 55067) 99 ML/MIN/1.73 eGFR NON- AMER. (test code = 69250) 85 ML/MIN/1.73 CALC BUN/CREAT (test code = [...] code = 2219) 22 U/L COMPREHENSIVE METABOLIC [id number] 00:00:00* Test Item Value Reference Range Interpretation Comme nts GLUCOSE (test code = 2217) 112 MG/DL BUN (test code = 2208) 14 MG/DL CREATININE (test code = 2214) 0.90 MG/DL eGFR AMER. (test cod e = 30451) 99 ML/MIN/1.73 eGFR NON- AMER. (test code = 06794) 85 ML/MIN/1.73 CALC BUN/CREAT (test code = 2235) 16 RATIO SODIUM (test code = 223) 142 MEQ/L POTASSIUM (test code = 2228) [...] 2203) 105 U/L AST (test code = 8) 20 U/L ALT (test code = 2218) 22 U/L [id number] 00:00:00* Test Item Value Reference Range Interpretation Comme nts TSH, THIRD GENERATION (test code = 2821) 1.640 UIU/ML [id number] 00:00:00* Test Item Value Reference Range Interpretation Comme nts TSH, THIRD GENERATION (test code = 2821) 1.640 UIU/ML [id number] 00:00:00* Test Item Value Reference Range Interpretation Comme nts TSH, THIRD GENERATION (test code = 2821) 1.640 UIU/ML TRICHOMONAS, URINE, [id number] 00:00:00* Test Item Value Reference Range Interpretation Comme nts TRICHOMONAS, NAAT (test code = 61576) NEGATIVE TRICHOMONAS, URINE, [id number] 00:00:00* Test Item Value Reference Range Interpretation Comme nts TRICHOMONAS, NAAT (test code = 09779) NEGATIVE CBC W/AUTO [id number] 00:00:00* Test Item Value Reference Range Interpretation [...] (test code = 1015) 280 K/UL Azam Yoni DonavonCOMPREHENSIVE METABOLIC [id number] 00:00:00* Test Item Value Reference Range Interpretation Comme nts GLUCOSE (test code = 2217) 112 MG/DL BUN (test code = 2208) 14 MG/DL CREATININE (test code = 2214) 0.90 MG/DL eGFR AMER. (test cod e = 67759) 99 ML/MIN/1.73 eGFR NON- AMER. (test code = 35805) 85 ML/MIN/1.73 CALC BUN/CREAT (test code = [...] (test code = 2219) 22 U/L Azam Yoni DonavonHCG, QUANTITATIVE [ADDED]2020-06-23 00:00:00* Test Item Value Reference Range Interpretation Comme nts HCG, QUANTITATIVE (test code = 2506) <5 MIU/ML Azam RaphaelNOTE: [ADDED]2020-06-23 00:00:00* Test Item Value Reference Range Interpretation Comme nts NOTE: (test code = 998) (NOTE) Azam RaphaelHCG, QUANTITATIVE [ADDED]2020-06-23 00:00:00* Test Item Value Reference Range Interpretation Comme nts HCG, QUANTITATIVE (test code = 2506) <5 MIU/ML Azam RaphaelHCG, QUANTITATIVE [ADDED]2020-06-23 00:00:00* Test Item [...] NOTE: (test code = 998) (NOTE) Azam Andrews, [id number] 00:00:00* Test Item Value Reference Range Interpretation Comme nts CULTURE, URINE (test code = 16729) SPECIMEN NUMBER: [id number] Azam Andrews, [id number] 00:00:00* Test Item Value Reference Range Interpretation Comme nts CULTURE, URINE (test code = 90865) SPECIMEN NUMBER: [id number] Azam Andrews, [id number] 00:00:00* Test Item Value Reference Range Interpretation Comme nts CULTURE, URINE (test code = 17464) SPECIMEN NUMBER: [id number] CULTURE, [id number] 00:00:00* Test Item Value Reference Range Interpretation Comme nts CULTURE, URINE (test code = 27019) SPECIMEN NUMBER: [id number] CULTURE, [id number] 00:00:00* Test Item Value Reference Range Interpretation Comme nts CULTURE, URINE (test code = 61012) SPECIMEN NUMBER: [id number] CULTURE, [id number] 00:00:00* Test Item Value Reference Range Interpretation Comme nts CULTURE, URINE (test code = 94007) SPECIMEN NUMBER: [id number] CULTURE, [id number] 00:00:00* Test Item Value Reference Range Interpretation Comme nts CULTURE, URINE (test code = 56454) SPECIMEN NUMBER: [id number] RPR REFLEX TO [id number] 00:00:00* Test Item Value Reference Range Interpretation Comme nts RPR (test code = 47164) NON-REACTIVE RPR TITER (test code = 3500) NOT INDIC. TITER Azam RaphaelHEPATITIS PROFILE (A,B,C)2020-06-21 00:00:00* Test Item Value Reference [...] (NOTE) INTERPRETATION HEPATITIS B: (test code = 07178) (NOTE) INTERPRETATION HEPATITIS C: (test code = 49997) (NOTE) Azam RaphaelHEPATITIS A IgM [REFLEX]2020-06-21 00:00:00* Test Item Value Reference Range Interpretation Comme nts HEPATITIS A IgM (test code = 2728) NON-REACTIVE Azam Vallejo AustinGC AND CHLAMYDIA, AMPLIFIED, [id number] 00:00:00* Test Item Value Reference Range Interpretation Comme nts GONORRHEA, NAAT (test code = 21092) NEGATIVE CHLAMYDIA, NAAT (test code = 75573) NEGATIVE Azam RaphaelHIV AB/AG COMBO RFLX [id number] 00:00:00* Test Item Value Reference Range Interpretation Comme nts HIV 1/2 4TH GEN, RFLX CONF ( test code = 3514) NON-REACTIVE Azam Vallejo AustinRPR REFLEX TO [id number] 00:00:00* Test Item Value Reference Range Interpretation Comme nts RPR (test code = 06450) NON-REACTIVE RPR TITER (test code = 3500) NOT INDIC. TITER Azam DelucaPATITIS PROFILE (A,B,C)2020-06-21 00:00:00* Test Item Value Reference [...] (NOTE) INTERPRETATION HEPATITIS B: (test code = 02127) (NOTE) INTERPRETATION HEPATITIS C: (test code = 69383) (NOTE) Azam Vallejo AustinHEPATITIS A IgM [REFLEX]2020-06-21 00:00:00* Test Item Value Reference Range Interpretation Comme nts HEPATITIS A IgM (test code = 2728) NON-REACTIVE Azam Vallejo AustinGC AND CHLAMYDIA, AMPLIFIED, [id number] 00:00:00* Test Item Value Reference Range Interpretation Comme nts GONORRHEA, NAAT (test code = 33486) NEGATIVE CHLAMYDIA, NAAT (test code = 13538) NEGATIVE Azam F AustinGC AND CHLAMYDIA, AMPLIFIED, [id number] 00:00:00* Test Item Value Reference Range Interpretation Comme nts GONORRHEA, NAAT (test code = 05250) NEGATIVE CHLAMYDIA, NAAT (test code = 33683) NEGATIVE HIV AB/AG COMBO RFLX [id number] 00:00:00* Test Item Value Reference Range Interpretation Comme nts HIV 1/2 4TH GEN, RFLX CONF ( test code = 3514) NON-REACTIVE RPR REFLEX TO [id number] 00:00:00* Test Item Value Reference Range Interpretation Comme nts RPR (test code = 36283) NON-REACTIVE RPR TITER (test code = 3500) [...] (NOTE) INTERPRETATION HEPATITIS B: (test code = 53206) (NOTE) INTERPRETATION HEPATITIS C: (test code = 08315) (NOTE) HEPATITIS A IgM [REFLEX]2020-06-21 00:00:00* Test Item Value Reference Range Interpretation Comme nts HEPATITIS A IgM (test code = 2728) NON-REACTIVE GC AND CHLAMYDIA, AMPLIFIED, [id number] 00:00:00* Test Item Value Reference Range Interpretation Comme nts GONORRHEA, NAAT (test code = 75810) NEGATIVE CHLAMYDIA, NAAT (test code = 91442) NEGATIVE GC AND CHLAMYDIA, AMPLIFIED, [id number] 00:00:00* Test Item Value Reference Range Interpretation Comme nts GONORRHEA, NAAT (test code = 35154) NEGATIVE CHLAMYDIA, NAAT (test code = 16700) NEGATIVE HIV AB/AG COMBO RFLX [id number] 00:00:00* Test Item Value Reference Range Interpretation Comme nts HIV 1/2 4TH GEN, RFLX CONF ( test code = 3514) NON-REACTIVE HIV AB/AG COMBO RFLX [id number] 00:00:00* Test Item Value Reference Range Interpretation Comme nts HIV 1/2 4TH GEN, RFLX CONF ( test code = 3514) NON-REACTIVE RPR REFLEX TO [id number] 00:00:00* Test Item Value Reference Range Interpretation Comme nts RPR (test code = 59658) NON-REACTIVE RPR TITER (test code = 3500) NOT INDIC. TITER RPR REFLEX TO [id number] 00:00:00* Test Item Value Reference Range Interpretation Comme nts RPR (test code = 73569) NON-REACTIVE RPR TITER (test code = 3500) [...] (NOTE) INTERPRETATION HEPATITIS B: (test code = 24121) (NOTE) INTERPRETATION HEPATITIS C: (test code = 47419) (NOTE) HEPATITIS PROFILE (A,B,C)2020-06-21 00:00:00* Test Item [...] (NOTE) INTERPRETATION HEPATITIS B: (test code = 87120) (NOTE) INTERPRETATION HEPATITIS C: (test code = 42969) (NOTE) HEPATITIS A IgM [REFLEX]2020-06-21 00:00:00* Test Item Value Reference Range Interpretation Comme nts HEPATITIS A IgM (test code = 2728) NON-REACTIVE GC AND CHLAMYDIA, AMPLIFIED, [id number] 00:00:00* Test Item Value Reference Range Interpretation Comme nts GONORRHEA, NAAT (test code = 10713) NEGATIVE CHLAMYDIA, NAAT (test code = 24530) NEGATIVE GC AND CHLAMYDIA, AMPLIFIED, [id number] 00:00:00* Test Item Value Reference Range Interpretation Comme nts GONORRHEA, NAAT (test code = 86413) NEGATIVE CHLAMYDIA, NAAT (test code = 64059) NEGATIVE HIV AB/AG COMBO RFLX [id number] 00:00:00* Test Item Value Reference Range Interpretation Comme nts HIV 1/2 4TH GEN, RFLX CONF ( test code = 3514) NON-REACTIVE HIV AB/AG COMBO RFLX [id number] 00:00:00* Test Item Value Reference Range Interpretation Comme nts HIV 1/2 4TH GEN, RFLX CONF ( test code = 3514) NON-REACTIVE RPR REFLEX TO [id number] 00:00:00* Test Item Value Reference Range Interpretation Comme nts RPR (test code = 82032) NON-REACTIVE RPR TITER (test code = 3500) NOT INDIC. TITER RPR REFLEX TO [id number] 00:00:00* Test Item Value Reference Range Interpretation Comme nts RPR (test code = 10553) NON-REACTIVE RPR TITER (test code = 3500) [...] (NOTE) INTERPRETATION HEPATITIS B: (test code = 52184) (NOTE) INTERPRETATION HEPATITIS C: (test code = 67944) (NOTE) HEPATITIS PROFILE (A,B,C)2020-06-21 00:00:00* Test Item [...] (NOTE) INTERPRETATION HEPATITIS B: (test code = 44639) (NOTE) INTERPRETATION HEPATITIS C: (test code = 21244) (NOTE) HEPATITIS A IgM [REFLEX]2020-06-21 00:00:00* Test Item Value Reference Range Interpretation Comme nts HEPATITIS A IgM (test code = 2728) NON-REACTIVE HIV AB/AG COMBO RFLX [id number] 00:00:00* Test Item Value Reference Range Interpretation Comme nts HIV 1/2 4TH GEN, RFLX CONF ( test code = 3514) NON-REACTIVE Azam Vallejo AustinHIV AB/AG COMBO RFLX [id number] 00:00:00* Test Item Value Reference Range Interpretation Comme nts HIV 1/2 4TH GEN, RFLX CONF ( test code = 3514) NON-REACTIVE Azam Vallejo [id number] 00:00:00* Test Item Value Reference Range Interpretation Comme nts RPR RESULT (test code = 3501) NON-REACTIVE RPR TITER (test code = 3500) NOT INDIC. TITER Azam RaphaelGC AND CHLAMYDIA, AMPLIFIED, [id number] 00:00:00* Test Item Value Reference Range Interpretation Comme nts GONORRHEA, NAAT (test code = 08992) NEGATIVE CHLAMYDIA, NAAT (test code = 30111) NEGATIVE Azam RaphaelVAGINAL PATHOGENS DNA [id number] 00:00:00* Test Item Value Reference Range Interpretation Comme nts DWIGHT SPECIES (test code = 58779) NEGATIVE G. VAGINALIS (test code = 15914) POSITIVE T. VAGINALIS (test code = 61170) NEGATIVE Azam Vallejo AustinHIV AB/AG COMBO RFLX [id number] 00:00:00* Test Item Value Reference Range Interpretation Comme nts HIV 1/2 4TH GEN, RFLX CONF ( test code = 3514) NON-REACTIVE Azam Vallejo [id number] 00:00:00* Test Item Value Reference Range Interpretation Comme nts RPR RESULT (test code = 3501) NON-REACTIVE RPR TITER (test code = 3500) NOT INDIC. TITER Azam RaphaelGC AND CHLAMYDIA, AMPLIFIED, [id number] 00:00:00* Test Item Value Reference Range Interpretation Comme nts GONORRHEA, NAAT (test code = 73471) NEGATIVE CHLAMYDIA, NAAT (test code = 15618) NEGATIVE Azam RaphaelVAGINAL PATHOGENS DNA [id number] 00:00:00* Test Item Value Reference Range Interpretation Comme nts DWIGHT SPECIES (test code = ) NEGATIVE G. VAGINALIS (test code = 48993) POSITIVE T. VAGINALIS (test code = 79146) NEGATIVE HIV AB/AG COMBO RFLX [id number] 00:00:00* Test Item Value Reference Range Interpretation Comme nts HIV 1/2 4TH GEN, RFLX CONF ( test code = 3514) NON-REACTIVE [id number] 00:00:00* Test Item Value Reference Range Interpretation Comme nts RPR RESULT (test code = 3501) NON-REACTIVE RPR TITER (test code = 3500) NOT INDIC. TITER [id number] 00:00:00* Test Item Value Reference Range Interpretation Comme nts RPR RESULT (test code = 3501) NON-REACTIVE RPR TITER (test code = 3500) NOT INDIC. TITER GC AND CHLAMYDIA, AMPLIFIED, [id number] 00:00:00* Test Item Value Reference Range Interpretation Comme nts GONORRHEA, NAAT (test code = 69072) NEGATIVE CHLAMYDIA, NAAT (test code = 56373) NEGATIVE VAGINAL PATHOGENS DNA [id number] 00:00:00* Test Item Value Reference Range Interpretation Comme nts DWIGHT SPECIES (test code = ) NEGATIVE G. VAGINALIS (test code = 76766) POSITIVE T. VAGINALIS (test code = 62104) NEGATIVE VAGINAL PATHOGENS DNA [id number] 00:00:00* Test Item Value Reference Range Interpretation Comme nts DWIGHT SPECIES (test code = ) NEGATIVE G. VAGINALIS (test code = 33871) POSITIVE T. VAGINALIS (test code = 25497) NEGATIVE HIV AB/AG COMBO RFLX [id number] 00:00:00* Test Item Value Reference Range Interpretation Comme nts HIV 1/2 4TH GEN, RFLX CONF ( test code = 3514) NON-REACTIVE HIV AB/AG COMBO RFLX [id number] 00:00:00* Test Item Value Reference Range Interpretation Comme nts HIV 1/2 4TH GEN, RFLX CONF ( test code = 3514) NON-REACTIVE [id number] 00:00:00* Test Item Value Reference Range Interpretation Comme nts RPR RESULT (test code = 3501) NON-REACTIVE RPR TITER (test code = 3500) NOT INDIC. TITER [id number] 00:00:00* Test Item Value Reference Range Interpretation Comme nts RPR RESULT (test code = 3501) NON-REACTIVE RPR TITER (test code = 3500) NOT INDIC. TITER [id number] 00:00:00* Test Item Value Reference Range Interpretation Comme nts RPR RESULT (test code = 3501) NON-REACTIVE RPR TITER (test code = 3500) NOT INDIC. TITER GC AND CHLAMYDIA, AMPLIFIED, [id number] 00:00:00* Test Item Value Reference Range Interpretation Comme nts GONORRHEA, NAAT (test code = 59168) NEGATIVE CHLAMYDIA, NAAT (test code = 76285) NEGATIVE GC AND CHLAMYDIA, AMPLIFIED, [id number] 00:00:00* Test Item Value Reference Range Interpretation Comme nts GONORRHEA, NAAT (test code = 10895) NEGATIVE CHLAMYDIA, NAAT (test code = 96012) NEGATIVE VAGINAL PATHOGENS DNA [id number] 00:00:00* Test Item Value Reference Range Interpretation Comme nts DWIGHT SPECIES (test code = ) NEGATIVE G. VAGINALIS (test code = 16539) POSITIVE T. VAGINALIS (test code = 77288) NEGATIVE VAGINAL PATHOGENS DNA [id number] 00:00:00* Test Item Value Reference Range Interpretation Comme nts DWIGHT SPECIES (test code = ) NEGATIVE G. VAGINALIS (test code = 04594) POSITIVE T. VAGINALIS (test code = 93862) NEGATIVE HIV AB/AG COMBO RFLX [id number] 00:00:00* Test Item Value Reference Range Interpretation Comme nts HIV 1/2 4TH GEN, RFLX CONF ( test code = 3514) NON-REACTIVE HIV AB/AG COMBO RFLX [id number] 00:00:00* Test Item Value Reference Range Interpretation Comme nts HIV 1/2 4TH GEN, RFLX CONF ( test code = 3514) NON-REACTIVE [id number] 00:00:00* Test Item Value Reference Range Interpretation Comme nts RPR RESULT (test code = 3501) NON-REACTIVE RPR TITER (test code = 3500) NOT INDIC. TITER [id number] 00:00:00* Test Item Value Reference Range Interpretation Comme nts RPR RESULT (test code = 3501) NON-REACTIVE RPR TITER (test code = 3500) NOT INDIC. TITER [id number] 00:00:00* Test Item Value Reference Range Interpretation Comme nts RPR RESULT (test code = 3501) NON-REACTIVE RPR TITER (test code = 3500) NOT INDIC. TITER GC AND CHLAMYDIA, AMPLIFIED, [id number] 00:00:00* Test Item Value Reference Range Interpretation Comme nts GONORRHEA, NAAT (test code = 18056) NEGATIVE CHLAMYDIA, NAAT (test code = 20928) NEGATIVE GC AND CHLAMYDIA, AMPLIFIED, [id number] 00:00:00* Test Item Value Reference Range Interpretation Comme nts GONORRHEA, NAAT (test code = 75175) NEGATIVE CHLAMYDIA, NAAT (test code = 47447) NEGATIVE VAGINAL PATHOGENS DNA [id number] 00:00:00* Test Item Value Reference Range Interpretation Comme nts DWIGHT SPECIES (test code = 34819) NEGATIVE G. VAGINALIS (test code = ) POSITIVE T. VAGINALIS (test code = ) NEGATIVE Azam F AustinGC AND CHLAMYDIA, AMPLIFIED, [id number] 00:00:00* Test Item Value Reference Range Interpretation Comme nts GONORRHEA, TMA (test code = 33053) NEGATIVE CHLAMYDIA, TMA (test code = 25283) NEGATIVE Azam F AustinGC AND CHLAMYDIA, AMPLIFIED, [id number] 00:00:00* Test Item Value Reference Range Interpretation Comme nts GONORRHEA, TMA (test code = 71970) NEGATIVE CHLAMYDIA, TMA (test code = 14416) NEGATIVE Azam F AustinGC AND CHLAMYDIA, AMPLIFIED, [id number] 00:00:00* Test Item Value Reference Range Interpretation Comme nts GONORRHEA, TMA (test code = 95833) NEGATIVE CHLAMYDIA, TMA (test code = 33341) NEGATIVE GC AND CHLAMYDIA, AMPLIFIED, [id number] 00:00:00* Test Item Value Reference Range Interpretation Comme nts GONORRHEA, TMA (test code = 96220) NEGATIVE CHLAMYDIA, TMA (test code = 25280) NEGATIVE GC AND CHLAMYDIA, AMPLIFIED, [id number] 00:00:00* Test Item Value Reference Range Interpretation Comme nts GONORRHEA, TMA (test code = 58349) NEGATIVE CHLAMYDIA, TMA (test code = 86103) NEGATIVE GC AND CHLAMYDIA, AMPLIFIED, [id number] 00:00:00* Test Item Value Reference Range Interpretation Comme nts GONORRHEA, TMA (test code = 25437) NEGATIVE CHLAMYDIA, TMA (test code = 52581) NEGATIVE GC AND CHLAMYDIA, AMPLIFIED, [id number] 00:00:00* Test Item Value Reference Range Interpretation Comme nts GONORRHEA, TMA (test code = 80512) NEGATIVE CHLAMYDIA, TMA (test code = 52938) NEGATIVE PAP TEST, THINPREP, [id number] 00:00:00* Test Item Value Reference Range Interpretation Comme nts SOURCE: (test code = 8001) Cervical/Endocervical SLIDES: (test code = 8011) 1 LMP: (test code = 8021) 08/19/2018 SPECIMEN ADEQUACY: (test code = 22443) (NOTE) INTERPRETATION: (test code = 00606) NILM/NO EPITH. ABNORMALITY;SEE BELOW TRAFFIC RATE CLERK: (test code = 8101) HAYLIE MATIAS(ASCP)IAC LOCATION: (test code = 62921) (NOTE) CPT: (test code = 8140) (NOTE) Azam Banda AND CHLAMYDIA AMPLIFIED, [id number] 00:00:00* Test Item Value Reference Range Interpretation Comme nts GONORRHEA, TMA (test code = 45685) TEST NOT PERFORMED CHLAMYDIA, TMA (test code = 35699) TEST NOT PERFORMED Azam RaphaelGC AND CHLAMYDIA AMPLIFIED, [id number] 00:00:00* Test Item Value Reference Range Interpretation Comme nts GONORRHEA, TMA (test code = 46367) TEST NOT PERFORMED CHLAMYDIA, TMA (test code = 19477) TEST NOT PERFORMED PAP TEST, THINPREP, [id number] 00:00:00* Test Item Value Reference Range Interpretation Comme nts SOURCE: (test code = 8001) Cervical/Endocervical SLIDES: (test code = 8011) 1 LMP: (test code = 8021) 08/19/2018 SPECIMEN ADEQUACY: (test code = 91661) (NOTE) INTERPRETATION: (test code = 95550) NILM/NO EPITH. ABNORMALITY;SEE BELOW TRAFFIC RATE CLERK: (test code = 8101) HAYLIE MATIAS(ASCP)IAC LOCATION: (test code = 70352) (NOTE) CPT: (test code = 8140) (NOTE) PAP TEST, THINPREP, [id number] 00:00:00* Test Item Value Reference Range Interpretation Comme nts SOURCE: (test code = 8001) Cervical/Endocervical SLIDES: (test code = 8011) 1 LMP: (test code = 8021) 08/19/2018 SPECIMEN ADEQUACY: (test code = 31961) (NOTE) INTERPRETATION: (test code = 40396) NILM/NO EPITH. ABNORMALITY;SEE BELOW TRAFFIC RATE CLERK: (test code = 8101) HAYLIE MATIAS(ASCP)IAC LOCATION: (test code = 29787) (NOTE) CPT: (test code = 8140) (NOTE) GC AND CHLAMYDIA AMPLIFIED, [id number] 00:00:00* Test Item Value Reference Range Interpretation Comme nts GONORRHEA, TMA (test code = 42449) TEST NOT PERFORMED CHLAMYDIA, TMA (test code = 47531) TEST NOT PERFORMED GC AND CHLAMYDIA AMPLIFIED, [id number] 00:00:00* Test Item Value Reference Range Interpretation Comme nts GONORRHEA, TMA (test code = 60710) TEST NOT PERFORMED CHLAMYDIA, TMA (test code = 69454) TEST NOT PERFORMED PAP TEST, THINPREP, [id number] 00:00:00* Test Item Value Reference Range Interpretation Comme nts SOURCE: (test code = 8001) Cervical/Endocervical SLIDES: (test code = 8011) 1 LMP: (test code = 8021) 08/19/2018 SPECIMEN ADEQUACY: (test code = 70204) (NOTE) INTERPRETATION: (test code = 01275) NILM/NO EPITH. ABNORMALITY;SEE BELOW TRAFFIC RATE CLERK: (test code = 8101) RUSSELL PARISABELCT(ASCP)IAC LOCATION: (test code = 96964) (NOTE) CPT: (test code = 8140) (NOTE) GC AND CHLAMYDIA AMPLIFIED, [id number] 00:00:00* Test Item Value Reference Range Interpretation Comme nts GONORRHEA, TMA (test code = 74952) TEST NOT PERFORMED CHLAMYDIA, TMA (test code = 55583) TEST NOT PERFORMED PAP TEST, THINPREP, [id number] 00:00:00* Test Item Value Reference Range Interpretation Comme nts SOURCE: (test code = 8001) Cervical/Endocervical SLIDES: (test code = 8011) 1 LMP: (test code = 8021) 08/19/2018 SPECIMEN ADEQUACY: (test code = 05921) (NOTE) INTERPRETATION: (test code = 52333) NILM/NO EPITH. ABNORMALITY;SEE BELOW TRAFFIC RATE CLERK: (test code = 8101) RUSSELL MASON,CT(ASCP)IAC LOCATION: (test code = 64619) (NOTE) CPT: (test code = 8140) (NOTE) PAP TEST, THINPREP, [id number] 00:00:00* Test Item Value Reference Range Interpretation Comme nts SOURCE: (test code = 8001) Cervical/Endocervical SLIDES: (test code = 8011) 1 LMP: (test code = 8021) 08/19/2018 SPECIMEN ADEQUACY: (test code = 78013) (NOTE) INTERPRETATION: (test code = 12821) NILM/NO EPITH. ABNORMALITY;SEE BELOW TRAFFIC RATE CLERK: (test code = 8101) RUSSELL MASONCT(ASCP)IAC LOCATION: (test code = 70419) (NOTE) CPT: (test code = 8140) (NOTE) GC AND CHLAMYDIA AMPLIFIED, [id number] 00:00:00* Test Item Value Reference Range Interpretation Comme nts GONORRHEA, TMA (test code = 77290) TEST NOT PERFORMED CHLAMYDIA, TMA (test code = 28221) TEST NOT PERFORMED PAP TEST, THINPREP, [id number] 00:00:00* Test Item Value Reference Range Interpretation Comme nts SOURCE: (test code = 8001) Cervical/Endocervical SLIDES: (test code = 8011) 1 LMP: (test code = 8021) 08/19/2018 SPECIMEN ADEQUACY: (test code = 28686) (NOTE) INTERPRETATION: (test code = 87631) NILM/NO EPITH. ABNORMALITY;SEE BELOW TRAFFIC RATE CLERK: (test code = 8101) HAYLIE MATIAS(ASCP)IAC LOCATION: (test code = 30414) (NOTE) CPT: (test code = 8140) (NOTE) Azam Yoni DonavonGC AND CHLAMYDIA AMPLIFIED, [id number] 00:00:00* Test Item Value Reference Range Interpretation Comme nts GONORRHEA, TMA (test code = 86446) TEST NOT PERFORMED CHLAMYDIA, TMA (test code = 13247) TEST NOT PERFORMED Azam RaphaelACUTE HEPATITIS [id number] 00:00:00* Test Item Value Reference Range Interpretation Comme nts HEPATITIS A IgM (test code = 04632) NON-REACTIVE HEPATITIS B CORE IgM (test c ode = 4644) NON-REACTIVE HEPATITIS B SURF AG (test co de = 2739) NON-REACTIVE HEPATITIS C ANTIBODY (test c ode = 4675) NON-REACTIVE HCV INDEX (test code = 62892) 0.11 INTERPRETATION HEPATITIS A: (test code = 2552) (NOTE) INTERPRETATION HEPATITIS B: (test code = 96657) (NOTE) INTERPRETATION HEPATITIS C: (test code = 91062) (NOTE) Azam [id number] 00:00:00* Test Item Value Reference Range Interpretation Comme nts RPR RESULT (test code = 3501) NON-REACTIVE RPR TITER (test code = 3500) NOT INDIC. TITER Azam Vallejo DonavonHPV HIGH RISK WITH GENOTYPE, [id number] 00:00:00* Test Item Value Reference Range Interpretation Comme nts HPV HIGH RISK INTERP (test c ode = 77720) NEGATIVE HPV 16 (test code = 63209) NEGATIVE HPV 18 (test code = 67650) NEGATIVE HPV, HR, OTHER GENOTYPES (te st code = 84032) NEGATIVE Azam RaphaelHIV AB/AG COMBO RFLX [id number] 00:00:00* Test Item Value Reference Range Interpretation Comme nts HIV 1/2 4TH GEN, RFLX CONF ( test code = 3514) NON-REACTIVE Azam RaphaelACUTE HEPATITIS [id number] 00:00:00* Test Item Value Reference Range Interpretation Comme nts HEPATITIS A IgM (test code = 95748) NON-REACTIVE HEPATITIS B CORE IgM (test c ode = 4644) NON-REACTIVE HEPATITIS B SURF AG (test co de = 2739) NON-REACTIVE HEPATITIS C ANTIBODY (test c ode = 4675) NON-REACTIVE HCV INDEX (test code = 23801) 0.11 INTERPRETATION HEPATITIS A: (test code = 2552) (NOTE) INTERPRETATION HEPATITIS B: (test code = 32476) (NOTE) INTERPRETATION HEPATITIS C: (test code = 07123) (NOTE) Azam [id number] 00:00:00* Test Item Value Reference Range Interpretation Comme nts RPR RESULT (test code = 3501) NON-REACTIVE RPR TITER (test code = 3500) NOT INDIC. TITER Azam [id number] 00:00:00* Test Item Value Reference Range Interpretation Comme nts RPR RESULT (test code = 3501) NON-REACTIVE RPR TITER (test code = 3500) NOT INDIC. TITER [id number] 00:00:00* Test Item Value Reference Range Interpretation Comme nts RPR RESULT (test code = 3501) NON-REACTIVE RPR TITER (test code = 3500) NOT INDIC. TITER HIV AB/AG COMBO RFLX [id number] 00:00:00* Test Item Value Reference Range Interpretation Comme nts HIV 1/2 4TH GEN, RFLX CONF ( test code = 3514) NON-REACTIVE HPV HIGH RISK WITH GENOTYPE, [id number] 00:00:00* Test Item Value Reference Range Interpretation Comme nts HPV HIGH RISK INTERP (test c ode = 91513) NEGATIVE HPV 16 (test code = 67889) NEGATIVE HPV 18 (test code = 84747) NEGATIVE HPV, HR, OTHER GENOTYPES (te st code = 21727) NEGATIVE ACUTE HEPATITIS [id number] 00:00:00* Test Item Value Reference Range Interpretation Comme nts HEPATITIS A IgM (test code = 53922) NON-REACTIVE HEPATITIS B CORE IgM (test c ode = 4644) NON-REACTIVE HEPATITIS B SURF AG (test co de = 2739) NON-REACTIVE HEPATITIS C ANTIBODY (test c ode = 4675) NON-REACTIVE HCV INDEX (test code = 91480) 0.11 INTERPRETATION HEPATITIS A: (test code = 2552) (NOTE) INTERPRETATION HEPATITIS B: (test code = 90019) (NOTE) INTERPRETATION HEPATITIS C: (test code = 53089) (NOTE) [id number] 00:00:00* Test Item Value Reference Range Interpretation Comme nts RPR RESULT (test code = 3501) NON-REACTIVE RPR TITER (test code = 3500) NOT INDIC. TITER [id number] 00:00:00* Test Item Value Reference Range Interpretation Comme nts RPR RESULT (test code = 3501) NON-REACTIVE RPR TITER (test code = 3500) NOT INDIC. TITER [id number] 00:00:00* Test Item Value Reference Range Interpretation Comme nts RPR RESULT (test code = 3501) NON-REACTIVE RPR TITER (test code = 3500) NOT INDIC. TITER HIV AB/AG COMBO RFLX [id number] 00:00:00* Test Item Value Reference Range Interpretation Comme nts HIV 1/2 4TH GEN, RFLX CONF ( test code = 3514) NON-REACTIVE HIV AB/AG COMBO RFLX [id number] 00:00:00* Test Item Value Reference Range Interpretation Comme nts HIV 1/2 4TH GEN, RFLX CONF ( test code = 3514) NON-REACTIVE HPV HIGH RISK WITH GENOTYPE, [id number] 00:00:00* Test Item Value Reference Range Interpretation Comme nts HPV HIGH RISK INTERP (test c ode = 89618) NEGATIVE HPV 16 (test code = 71570) NEGATIVE HPV 18 (test code = 18323) NEGATIVE HPV, HR, OTHER GENOTYPES (te st code = 05314) NEGATIVE HPV HIGH RISK WITH GENOTYPE, [id number] 00:00:00* Test Item Value Reference Range Interpretation Comme nts HPV HIGH RISK INTERP (test c ode = 88087) NEGATIVE HPV 16 (test code = 77866) NEGATIVE HPV 18 (test code = 50572) NEGATIVE HPV, HR, OTHER GENOTYPES (te st code = 97117) NEGATIVE ACUTE HEPATITIS [id number] 00:00:00* Test Item Value Reference Range Interpretation Comme nts HEPATITIS A IgM (test code = 39614) NON-REACTIVE HEPATITIS B CORE IgM (test c ode = 4644) NON-REACTIVE HEPATITIS B SURF AG (test co de = 2739) NON-REACTIVE HEPATITIS C ANTIBODY (test c ode = 4675) NON-REACTIVE HCV INDEX (test code = 97367) 0.11 INTERPRETATION HEPATITIS A: (test code = 2552) (NOTE) INTERPRETATION HEPATITIS B: (test code = 12871) (NOTE) INTERPRETATION HEPATITIS C: (test code = 82482) (NOTE) ACUTE HEPATITIS [id number] 00:00:00* Test Item Value Reference Range Interpretation Comme nts HEPATITIS A IgM (test code = 95268) NON-REACTIVE HEPATITIS B CORE IgM (test c ode = 4644) NON-REACTIVE HEPATITIS B SURF AG (test co de = 2739) NON-REACTIVE HEPATITIS C ANTIBODY (test c ode = 4675) NON-REACTIVE HCV INDEX (test code = 32803) 0.11 INTERPRETATION HEPATITIS A: (test code = 2552) (NOTE) INTERPRETATION HEPATITIS B: (test code = 64607) (NOTE) INTERPRETATION HEPATITIS C: (test code = 14590) (NOTE) [id number] 00:00:00* Test Item Value Reference Range Interpretation Comme nts RPR RESULT (test code = 3501) NON-REACTIVE RPR TITER (test code = 3500) NOT INDIC. TITER [id number] 00:00:00* Test Item Value Reference Range Interpretation Comme nts RPR RESULT (test code = 3501) NON-REACTIVE RPR TITER (test code = 3500) NOT INDIC. TITER [id number] 00:00:00* Test Item Value Reference Range Interpretation Comme nts RPR RESULT (test code = 3501) NON-REACTIVE RPR TITER (test code = 3500) NOT INDIC. TITER HPV HIGH RISK WITH GENOTYPE, [id number] 00:00:00* Test Item Value Reference Range Interpretation Comme nts HPV HIGH RISK INTERP (test c ode = 45314) NEGATIVE HPV 16 (test code = 39722) NEGATIVE HPV 18 (test code = 26337) NEGATIVE HPV, HR, OTHER GENOTYPES (te st code = 22118) NEGATIVE HPV HIGH RISK WITH GENOTYPE, [id number] 00:00:00* Test Item Value Reference Range Interpretation Comme nts HPV HIGH RISK INTERP (test c ode = 17054) NEGATIVE HPV 16 (test code = 34740) NEGATIVE HPV 18 (test code = 54948) NEGATIVE HPV, HR, OTHER GENOTYPES (te st code = 38605) NEGATIVE HIV AB/AG COMBO RFLX [id number] 00:00:00* Test Item Value Reference Range Interpretation Comme nts HIV 1/2 4TH GEN, RFLX CONF ( test code = 3514) NON-REACTIVE HIV AB/AG COMBO RFLX [id number] 00:00:00* Test Item Value Reference Range Interpretation Comme nts HIV 1/2 4TH GEN, RFLX CONF ( test code = 3514) NON-REACTIVE ACUTE HEPATITIS [id number] 00:00:00* Test Item Value Reference Range Interpretation Comme nts HEPATITIS A IgM (test code = 11524) NON-REACTIVE HEPATITIS B CORE IgM (test c ode = 4644) NON-REACTIVE HEPATITIS B SURF AG (test co de = 2739) NON-REACTIVE HEPATITIS C ANTIBODY (test c ode = 4675) NON-REACTIVE HCV INDEX (test code = 12933) 0.11 INTERPRETATION HEPATITIS A: (test code = 2552) (NOTE) INTERPRETATION HEPATITIS B: (test code = 76493) (NOTE) INTERPRETATION HEPATITIS C: (test code = 51609) (NOTE) ACUTE HEPATITIS [id number] 00:00:00* Test Item Value Reference Range Interpretation Comme nts HEPATITIS A IgM (test code = 04659) NON-REACTIVE HEPATITIS B CORE IgM (test c ode = 4644) NON-REACTIVE HEPATITIS B SURF AG (test co de = 2739) NON-REACTIVE HEPATITIS C ANTIBODY (test c ode = 4675) NON-REACTIVE HCV INDEX (test code = 31537) 0.11 INTERPRETATION HEPATITIS A: (test code = 2552) (NOTE) INTERPRETATION HEPATITIS B: (test code = 65558) (NOTE) INTERPRETATION HEPATITIS C: (test code = 28662) (NOTE) HPV HIGH RISK WITH GENOTYPE, [id number] 00:00:00* Test Item Value Reference Range Interpretation Comme nts HPV HIGH RISK INTERP (test c ode = 86322) NEGATIVE HPV 16 (test code = 57879) NEGATIVE HPV 18 (test code = 17038) NEGATIVE HPV, HR, OTHER GENOTYPES (te st code = 78263) NEGATIVE Azam RaphaelHIV AB/AG COMBO RFLX [id number] 00:00:00* Test Item Value Reference Range Interpretation Comme nts HIV 1/2 4TH GEN, RFLX CONF ( test code = 3514) NON-REACTIVE Azam Raphael Notes Date/Time Note Provider Source 2023-10-11 15:59:26 9974-93-15G82:59:26 Patient discharged to home. Patient given printed and verbal discharge instructions regarding diagnosis. Instructed to follow up with PCP. Patient verbalized understanding of instructions. Patient awake, alert, oriented, respirations even and unlabored, skin warm and dry, color appropriate for race. No adverse reaction to meds given in ER noted upon

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
[2023-10-29] MEDS ORDERED: ONDANSETRON 4 MG (ODT) TAB ONE (15:14)
[2023-10-29] MEDS ORDERED: SMZ./TMP. 800/160 MG TABLET ONE (15:14)
[2023-10-29] MEDS ORDERED: HYDROCODONE/APAP 7.5/325 MG TAB ONE (15:15)
[2023-10-29] MEDS ORDERED: SILVER SULFADIAZINE 1% 25 GM TOP ONE (15:15)
--- NOTE | 2023-10-29 15:16 | RAD REPORT ---
EXAM DESCRIPTION: RAD - Ankle Right 3 View - 10/29/2023 3:10 pm CLINICAL HISTORY: PAIN COMPARISON: No comparisons FINDINGS/IMPRESSION: No acute fracture. No malalignment. Dorsal aspect calcaneal spur.
[2023-10-29 15:43] VITALS: BP 108/72; TEMP 98; O2SAT 99
== END 2023-10-29 15:29 | disposition home or self-care (01) ==
LOC: ER 14:05
DX: S30.810A Abrasion of lower back and pelvis, initial encounter (principal); S80.812A Abrasion, left lower leg, initial encounter; S90.812A Abrasion, left foot, initial encounter; S90.811A Abrasion, right foot, initial encounter; S90.511A Abrasion, right ankle, initial encounter
CPT/HCPCS: 73610; 99284; Q0162

== ENCOUNTER 2023-10-30 06:46 | Emergency (ER) | payer OTHER ==
--- OUTSIDE RECORDS SUMMARY | 2023-10-30 06:57 | XMS REPORT | Continuity of Care Document ---
Author Name Unknown Address [address] [facility] [address] [place] [address] [facility] Address [address] [facility] [address] [place] [address] Care Team Providers Care Ostomy Care Nurse Name Role Phone PIOTR ROMERO Primary Care Physician UnavailYANICK Hanna Attending Clinician DR PIOTR Salinas Attending Clinician Unavailable [phone] Attending Clinician Unavailable [id number] Attending Clinician Unavailable YUN SAMS Attending Clinician UnavailYUN Bhatt Attending Clinician UnavailLAURIE Franco Attending Clinician Unavailable Azam Rooney MD Attending Clinician [phone] Laurie Bowen MD Attending Clinician [phone] CHASITY SALVADOR Attending Clinician Unavailable DIANN PONCE Attending Clinician Unavailable ELLIOT CAMEJO Attending Clinician Unavailable MAYNOR SAMUEL Attending Clinician Unavailable GUILHERME WILDER Attending Clinician Unavailable Guilherme Wilder MD Attending Clinician [phone] Doctor Unassigned, [place] Attending Clinician Cathie Shelton MD Attending Clinician [phone] RIVERA PINK Attending Clinician Unavailable CATHIE SUBRAMANIAN Attending Clinician UnavailRivera Bland Attending Clinician [phone] JESSE DONG Attending Clinician Unavailable ERICA KLINE Attending Clinician Unavailable RADIOLOGY Attending Clinician Unavailable Radiology Attending Clinician Unavailable TIMOTEO CISSE Attending Clinician Unavailable Timoteo May Attending Clinician [phone] Karen Burnett PA-C Attending Clinician [phone] KAREN BURNETT Attending Clinician Unavailable Jesse Dong MD Attending Clinician [phone] BRYN BRADLEY Attending Clinician Unavailab roberto STONE [...] Number Effective Date Expirati on Date Source [facility] ALICE [id number] 00:00:00 [facility] [place] [facility] [id number] 00:00:00 [facility] [id number] 2023 00:00:00 [facility] JAILYN JOY COPAY FOCUS 9 [id number] 2023 00:00:00 [facility] DAVID FROM [facility] [id number] 2022 00:00:00 [facility] [id number] 2018 00:00:00 Problems Condition Name Condition Details Condition Category Status Onset Date Resolution Date Last Treatment Date Treating Clinician Comments Source Infection of hand due to bite Infection of hand due to bite Disease Active 18 00:00: 00 [facility] Gastroesop hageal reflux disease without esophagiti s Gastroesop hageal reflux disease without esophagiti s Disease Active 2018-04 00:00: 00 [facility] Abnormal maternal glucose tolerance, antepartum Abnormal maternal glucose tolerance, antepartum Disease Active 2018-04 108 00:00: 00 [facility] Underweigh t Underweigh t Disease Active 01-21 00:00: 00 [facility] History of bipolar disorder History of bipolar disorder Disease Active 01-21 00:00: 00 [facility] Polysubsta nce abuse Polysubsta nce abuse Disease Active 01-17 00:00: 00 [facility] PTSD (post-trau matic stress disorder) PTSD (post-trau matic stress disorder) Disease Active 01-17 00:00: 00 [facility] Trichomona l vulvovagin itis Trichomona l vulvovagin itis Disease Active 10-26 00:00: 00 [facility] Hepatitis C antibody test positive Hepatitis C antibody test positive Disease Active 10-25 00:00: 00 Overview: Formattin g of this note might be different from the original. PCR negative [facility] Multiparit y Multiparit y Disease Active 10-22 00:00: 00 [facility] Eating disorder Eating disorder Disease Active 10-22 00:00: 00 [facility] Anxiety and depression Anxiety and depression Disease Active 10-22 00:00: 00 [facility] Lost custody of children Lost custody of children Disease Active 10-22 00:00: 00 [facility] History of seizures History of seizures Disease Active 10-22 00:00: 00 [facility] Allergies, Adverse Reactions, Alerts Allergy Name Allergy [...] s Active Hallucinatio ns 05-06 00:00: 00 [facility] Risperid one Propensi ty to adverse reaction s Active Hallucinatio ns 05-06 00:00: 00 [facility] ZIPRASID ONE MESYLATE DRUG INGREDI Active Hallucinates 05-06 00:00: 00 [facility] RISPERID ONE DRUG INGREDI Active Hallucinates 05-06 00:00: 00 [facility] NO KNOWN ALLERGIE S Drug Class Active [facility] No Known Allergie s MA Active UNKNOWN [place] Social History Social Habit Start Date Stop Date Quantity Comments Source Sexual orientation 2023-06-25 10:05:01 Heterosexual (finding) Amy Jacinto - External History of tobacco use 2001-10-22 00:00:[address] [facility] History SDOH Alcohol Std Drinks [facility] History SDOH Alcohol Binge [facility] History SDOH Alcohol Comment [place] [facility] Alcoholic beverage intake 2023-10-11 00:00:00 2023-10-11 00:00:00 0 /d [facility] Alcohol intake 2023-08-19 00:00:00 2023-08-19 00:00:00 0 /d [facility] History of Social function 2023-06-25 00:00:00 2023-06-25 00:00:00 Amy Jacinto - External Exposure to SARS-CoV-2 (event) 2022-04-20 00:00:00 2022-04-30 14:04:[address] [facility] Cigarettes smoked current (pack per day) - Reported 2022-04-30 00:00:00 2022-04-30 00:00:00 [facility] Tobacco use and exposure 2022-04-30 00:00:00 2022-04-30 00:00:00 Smokeless tobacco non-user [facility] Tobacco Comment 2022-04-30 00:00:00 2022-04-30 00:00:00 Has too much stress to quit [facility] Cigarette pack-years 2022-04-30 00:00:00 2022-04-30 00:00:00 [facility] History SDOH Alcohol Frequency 2018-10-22 00:00:00 2018-10-22 00:00:[address] [facility] Sex Assigned At 1990 00:00:00 1990 00:00:00 Yoni Jacinto - External Smoking Status Start Date Stop Date Source Tobacco smoking consumption unknown Amy Jacinto - Ext ernal Smokes tobacco daily 2022-04-30 00:00:00 [facility] Medications Ordered Medication Name Filled Medication Name Start Date Stop Date Current Medication? Ordering Clinician Indication Dosage Frequency Signature (SIG) Comments Components Source budesonide- formoteroL 80-4.5 mcg/actuati on inhaler 10-10 00:00: 00 Yes [id number] 2{puff} Inhale 2 Puffs in the morning and 2 [address]uffs in the evening. [facility] predniSONE 20 mg tablet 10-10 00:00: 00 10-18 04:59 :00 Yes [id number] 20mg Take 1 tablet by mouth in the morning for [address] [facility] ketorolac (TORADOL) injection 30 mg 08-19 05:00: 00 08-19 04:39 :00 No 30mg 30 mg, Slow IV Push, ONCE NOW, 1 dose, On Thu08/20/23 at 0000, JENNIFER [facility] NaCl 0.9% (NS) bolus infusion 1,000 mL 08-19 05:00: 00 08-19 05:45 :00 No 1000mL at 999 mL/hr, 1,000 mL, IV Piggyback, ONCE, 1 dose, On Thu08/20/23 at 0000, STAT [facility] diclofenac 75 mg EC tablet 08-19 00:00: 00 Yes [id number] 75mg Take 1 tablet by mouth in the morning and 1 tablet in the evening. Take with meals. [facility] hydroxyzine HCl 10 mg tablet 07-15 00:00: 00 Yes mg Azam Raphael hydrOXYzine HCl 10 MG oral Tablet 07-15 00:00: 00 08-05 04:59 :00 No [id number] 10mg [id number] 3D Take 1 tablet (10 mg total) by mouth 3 times daily as needed for anxiety for up to 20 days. Amy Jacinto - Externa cassidy Mirtazapine 7.5 MG oral Tablet 00:00: 00 Yes [id number] 7.5mg Take 1 tablet (7.5 mg total) by mouth nightly. Amy Jacinto - Externa l 10 ML Q 4 TO 6 HOURS PRN COUGH FOR 5 DAYS 2022-04 00:00: 00 08-18 00:00 :00 No [id number] Azam Raphael ibuprofen (IBU) tablet 800 mg 2022-04 10:30: 00 03-03 09:33 :00 No 800mg 800 mg, Oral, ONCE, 1 dose, On Thu03/03/23 at 0430, Routine [facility] ibuprofen 800 mg tablet 2022-04 00:00: 00 Yes [id number] 800mg Take 1 tablet by mouth every 8 (eight) hours as needed for Alternate with [place] for pain scale 1-3. [facility] KETOROLAC 10MG 2022-04 0-31 00:00: 00 Yes [...] 00:00: 00 Yes 50 Azam Raphael PAXLOVID [id number] 0199-0 7-24 00:00: 00 Yes Azam Raphael 10 ML Q 4 TO 6 HOURS PRN COUGH FOR 5 DAYS 11-17 00:00: 00 08-18 00:00 :00 No [id number] Azam Raphael 300 MG NIRMATRELVI R (TWO [...] 00 08-18 00:00 :00 No 50 Azam Yoni Donavon APPLY AND GENTLY MASSAGE INTO AFFECTED AREA(S) TWICE DAILY. 11-08 00:00: 00 08-18 00:00 :00 No 5 Azam Yoni Donavon METHYLPRED 10-20 00:00: 00 Yes Azam Raphael [...] 1-04 14:13: 57 No No known medication [facility] METRONIDAZO L 0 1-04 [...] DRINK PLENTY OF WATER FOR PAIN 2021-0 - 00:00: 00 No TAKE 1 TABLET BY MOUTH EVERY 8 HOURS WITH FOOD AND DRINK PLENTY OF WATER FOR PAIN 2021-0 - 00:00: 00 08-18 00:00 :00 No Azam [...] injection 80 mL 2022-0 6-30 14:15: 00 2022- 06-30 13:09 :00 No [id number] 80mL 80 mL, Intravenou s, ONCE, 1 dose, On Kya 10/24/21 at 0915, Routine [facility] ibuprofen 600 mg tablet 10-18 00:00: 00 [...] member approving Restricted medication : TIMOTEO CISSE [facility] iopamidol (ISOVUE 370-500 mL) injection 100 mL 09-23 20:00: 00 09-23 20:15 :00 No [id number] 100mL 100 mL, Intravenou s, ONCE, 1 dose, On Thu09/23/21 at 1515, Routine [facility] ondansetron (ZOFRAN (PF)) injection 4 mg 09-23 19:45: 00 09-23 19:43 :00 No 4mg 4 mg, Slow IV Push, ONCE, 1 dose, On Thu09/23/21 at 1445, JENNIFER [facility] No known medications 09-23 13:33: [address] [facility] metronidazo le 500 mg tablet 08-19 00:00: 00 Yes 1mg Azam Raphael metronidazo le 500 mg tablet 2022-0 4-25 00:00: 00 No 1mg metronidazo le 500 mg tablet 0 4-25 00:00: 00 No 1mg metronidazo le 500 mg tablet 0 4-25 00:00: 00 No 1mg Dose Unknown 0 [...] 0 3-21 00:00: 00 Yes 1mg Azam Yoni Donavon amoxicillin 875 mg-potassiu m clavulanate 125 mg tablet 2021-0 3-21 00:00: 00 Yes 1mg Azam Raphael ibuprofen 600 mg tablet 0 3-21 00:00: 00 Yes 1mg Azam Rapahel Dose Unknown 0 3-21 00:00: 00 Yes Azam Raphael Dose Unknown 0 3-21 00:00: 00 Yes Azam Raphael Xopenex HFA 45 mcg/actuati on aerosol inhaler 0 3-21 00:00: 00 No 1mcg/ac tuation sulfamethox azole 800 mg-trimetho prim 160 mg tablet 0 3- 00:00: 00 No 1mg amoxicillin 875 mg-potassiu m clavulanate 125 mg tablet 0 - 00:00: 00 No 1mg ibuprofen 600 mg tablet 0 3 00:00: 00 No 1mg Dose Unknown 0 [...] No Dose Unknown 2-0 3-13 00:00: 00 Yes Azam Raphael Dose Unknown 2-0 3-13 00:00: 00 Yes Azam Raphael Dose Unknown 2021-0 3-13 00:00: 00 No Dose Unknown 2-0 3-13 00:00: 00 No HYDROXYZ HCL 2-0 2-28 00:00: 00 Yes 25 Azam Raphael QUETIAPINE 2-0 2-28 00:00: 00 Yes 25 Azam Raphael Zyprexa 5 mg tablet 2-0 2-17 00:00: 00 No 1mg Zyprexa 5 mg tablet 2-0 2-17 00:00: 00 No 1mg Zyprexa 5 mg tablet 2-0 2-17 00:00: 00 Yes 1mg Azam Raphael buspirone 15 mg tablet 2-0 2-11 00:00: 00 No 1mg buspirone 15 mg tablet 2-0 2-11 00:00: 00 No 1mg buspirone 15 mg tablet 2-0 2-11 00:00: 00 Yes 1mg Azam Raphael ProAir HFA 90 mcg/actuati on aerosol inhaler 1 0-18 00:00: 00 No 2mcg/ac tuation Tessalon Perles 100 mg capsule 1 0-18 00:00: 00 No 12mg ProAir HFA [...] Azam Raphael hydroxyzine HCl 25 mg tablet - 00:00: 00 Yes 1mg Azam Raphael No known medications 1- 18:00: [address] [facility] methylpredn isolone 4 mg tablets in [...] Raphael NUVARING 0.12-0.015 mg/24 hr vaginal insert 3-16 00:00: 00 05-23 00:00 :00 No 1{each} Insert 1 Each into vagina once every month. Insert vaginally and leave in place for 3 consecutiv e weeks, then remove for [address] [facility] busPIRone 15 mg tablet 2018-04 00:00: 00 05-23 00:00 :00 No [id number] 15mg Take 1 tablet by mouth 2 (two) times daily. [facility] vitamin w/FA tablet 2018-04 00:00: 00 05-23 00:00 :00 No [id number] 1{tbl} Take 1 tablet by mouth daily. [facility] docusate calcium 240 mg capsule 2018-04 00:00: 00 05-23 00:00 :00 No [id number] 240mg Take 1 capsule by mouth once daily as needed for Constipati on. [facility] ferrous sulfate 325 mg (65 mg iron) tablet 2018-04 00:00: 00 05-23 00:00 :00 No [id number] 325mg Take 1 tablet by mouth 2 (two) times daily. [facility] ibuprofen 600 mg tablet 2018-04 00:00: 00 05-23 00:00 :00 No [id number] 600mg Take 1 tablet by mouth every 6 (six) hours as needed (Pain). Take with food or milk. [facility] Immunizations Ordered Immunization Name Filled Immunization Name Date Status Comments Source TDAP (ADACEL) VACCINE 2019-03-10 00:00:[address] [facility] TDAP (ADACEL) VACCINE 2019-03-10 00:00:[address] [facility] TDAP (ADACEL) VACCINE 2019-03-10 00:00:[address] [facility] TDAP (ADACEL) VACCINE 2019-03-10 00:00:[address] [facility] TDAP (ADACEL) VACCINE 2019-03-10 00:00:[address] [facility] TDAP (ADACEL) VACCINE 2019-03-10 00:00:[address] [facility] TDAP (ADACEL) VACCINE 2019-03-10 00:00:[address] [facility] TDAP (ADACEL) VACCINE 2019-03-10 00:00:[address] [facility] TDAP (ADACEL) VACCINE 2019-03-10 00:00:[address] [facility] TDAP (ADACEL) VACCINE 2019-03-10 00:00:[address] [facility] TDAP (ADACEL) VACCINE 2019-03-10 00:00:[address] [facility] TDAP (ADACEL) VACCINE 2019-03-10 00:00:[address] [facility] TDAP (ADACEL) VACCINE 2019-03-10 00:00:[address] [facility] TDAP (ADACEL) VACCINE 2019-03-10 00:00:[address] [facility] TDAP (ADACEL) VACCINE 2019-03-10 00:00:[address] [facility] Tdap Tdap 2019-03-10 00:00:00 Completed Azam Raphael MMR 2012-11-22 00:00:[address] [facility] MMR 2012-11-22 00:00:[address] [facility] MMR 2012-11-22 00:00:[address] [facility] MMR 2012-11-22 00:00:[address] [facility] MMR 2012-11-22 00:00:[address] [facility] MMR 2012-11-22 00:00:[address] [facility] MMR 2012-11-22 00:00:[address] [facility] MMR 2012-11-22 00:00:[address] [facility] MMR 2012-11-22 00:00:[address] [facility] MMR 2012-11-22 00:00:[address] [facility] MMR 2012-11-22 00:00:[address] [facility] MMR 2012-11-22 00:00:[address] [facility] MMR 2012-11-22 00:00:[address] [facility] MMR 2012-11-22 00:00:[address] [facility] MMR 2012-11-22 00:00:[address] [facility] Hep B, adult Hep B, adult 2012-11-22 00:00:00 Completed Azam Raphael MMR MMR 2012-11-22 00:00:00 Completed Azam Raphael HEPATITIS A 2012-10-19 00:00:[address] [facility] MMR 2012-10-19 00:00:[address] [facility] HEPATITIS A 2012-10-19 00:00:[address] [facility] MMR 2012-10-19 00:00:[address] [facility] HEPATITIS A 2012-10-19 00:00:[address] [facility] MMR 2012-10-19 00:00:[address] [facility] HEPATITIS A 2012-10-19 00:00:[address] [facility] MMR 2012-10-19 00:00:[address] [facility] HEPATITIS A 2012-10-19 00:00:[address] [facility] MMR 2012-10-19 00:00:[address] [facility] HEPATITIS A 2012-10-19 00:00:[address] [facility] MMR 2012-10-19 00:00:[address] [facility] HEPATITIS A 2012-10-19 00:00:[address] [facility] MMR 2012-10-19 00:00:[address] [facility] HEPATITIS A 2012-10-19 00:00:[address] [facility] MMR 2012-10-19 00:00:[address] [facility] HEPATITIS A 2012-10-19 00:00:[address] [facility] MMR 2012-10-19 00:00:[address] [facility] HEPATITIS A 2012-10-19 00:00:[address] [facility] MMR 2012-10-19 00:00:[address] [facility] HEPATITIS A 2012-10-19 00:00:[address] [facility] MMR 2012-10-19 00:00:[address] [facility] HEPATITIS A 2012-10-19 00:00:[address] [facility] MMR 2012-10-19 00:00:[address] [facility] HEPATITIS A 2012-10-19 00:00:[address] [facility] MMR 2012-10-19 00:00:[address] [facility] HEPATITIS A 2012-10-19 00:00:[address] [facility] MMR 2012-10-19 00:00:[address] [facility] HEPATITIS A 2012-10-19 00:00:[address] [facility] MMR 2012-10-19 00:00:[address] [facility] Hep A, adult Hep A, adult 2012-10-19 00:00:00 Completed Azam Raphael Hep B, adult Hep B, adult 2012-10-19 00:00:00 Completed Azam Raphael Tdap Tdap 2012-10-19 00:00:00 Completed Azam Raphael MMR MMR 2012-10-19 00:00:00 Completed Azam Raphael TDAP (ADACEL) VACCINE Unknown Completed [facility] HEPATITIS A Unknown [facility] MMR Unknown Completed [facility] MMR Unknown Completed [facility] TDAP (ADACEL) VACCINE Unknown Completed [facility] HEPATITIS A Unknown Completed [facility] MMR Unknown Completed [facility] MMR Unknown Completed [facility] TDAP (ADACEL) VACCINE Unknown Completed [facility] HEPATITIS A Unknown Completed [facility] MMR Unknown Completed [facility] MMR Unknown Completed [facility] TDAP (ADACEL) VACCINE Unknown Completed [facility] HEPATITIS A Unknown Completed [facility] MMR Unknown Completed [facility] MMR Unknown Completed [facility] TDAP (ADACEL) VACCINE Unknown Completed [facility] HEPATITIS A Unknown Completed [facility] MMR Unknown Completed [facility] MMR Unknown Completed [facility] TDAP (ADACEL) VACCINE Unknown Completed [facility] HEPATITIS A Unknown Completed [facility] MMR Unknown Completed [facility] MMR Unknown Completed [facility] TDAP (ADACEL) VACCINE Unknown Completed [facility] HEPATITIS A Unknown Completed [facility] MMR Unknown Completed [facility] MMR Unknown Completed [facility] TDAP (ADACEL) VACCINE Unknown Completed [facility] HEPATITIS A Unknown Completed [facility] MMR Unknown Completed [facility] MMR Unknown Completed [facility] TDAP (ADACEL) VACCINE Unknown Completed [facility] HEPATITIS A Unknown Completed [facility] MMR Unknown Completed [facility] MMR Unknown Completed [facility] TDAP Unknown Completed [facility] TDAP (ADACEL) VACCINE Unknown Completed [facility] HEPATITIS A Unknown Completed [facility] MMR Unknown Completed [facility] MMR Unknown Completed [facility] TDAP Unknown Completed [facility] Vital Signs Vital Name Observation Time Observation [...] Systolic blood pressure 2023-10-11 20:58:00 115 mm[Hg] [facility] Diastolic blood pressure 2023-10-11 20:58:00 89 mm[Hg] [facility] Heart rate 2023-10-11 20:58:00 81 /min [facility] Body temperature 2023-10-11 20:58:[address] [facility] Respiratory rate 2023-10-11 20:58:00 18 /min [facility] Oxygen saturation in Arterial blood by Pulse oximetry 2023-10-11 20:58:00 100 /min [facility] Body height 2023-10-11 17:28:[address] [facility] Body weight 2023-10-11 17:28:[address] [facility] BMI 2023-10-11 17:28:00 15.17 kg/m2 [facility] Heart rate 2023-08-20 05:00:00 100 /min [facility] Respiratory rate 2023-08-20 05:00:00 20 /min [facility] Oxygen saturation in Arterial blood by Pulse oximetry 2023-08-20 05:00:00 99 /min [facility] Systolic blood pressure 2023-08-20 04:10:00 133 mm[Hg] [facility] Diastolic blood pressure 2023-08-20 04:10:00 102 mm[Hg] [facility] Body height 2023-08-20 04:10:[address] [facility] Body weight 2023-08-20 04:10:[address] [facility] BMI 2023-08-20 04:10:00 16.31 kg/m2 [facility] Systolic blood pressure 2023-03-03 08:53:00 113 mm[Hg] [facility] Diastolic blood pressure 2023-03-03 08:53:00 91 mm[Hg] [facility] Heart rate 2023-03-03 08:53:00 93 /min [facility] Body temperature 2023-03-03 08:53:[address] [facility] Respiratory rate 2023-03-03 08:53:00 20 /min [facility] Body height 2023-03-03 08:53:[address] [facility] Body weight 2023-03-03 08:53:[address] [facility] BMI 2023-03-03 08:53:00 16.64 kg/m2 [facility] Oxygen saturation in Arterial blood by Pulse oximetry 2023-03-03 08:53:00 100 /min [facility] Systolic blood pressure 2022-04-30 20:12:00 148 mm[Hg] pt on the phone [facility] Diastolic blood pressure 2022-04-30 20:12:00 103 mm[Hg] pt on the phone [facility] Heart rate 2022-04-30 20:12:00 108 /min [facility] Systolic blood pressure 2021-09-23 23:07:54 117 mm[Hg] [facility] Diastolic blood pressure 2021-09-23 23:07:54 80 mm[Hg] [facility] Heart rate 2021-09-23 23:07:54 78 /min [facility] Respiratory rate 2021-09-23 23:07:54 18 /min [facility] Oxygen saturation in Arterial blood by Pulse oximetry 2021-09-23 23:07:54 98 /min [facility] Body temperature 2021-09-23 18:10:[address] [facility] Body height 2021-09-23 18:10:[address] [facility] Body weight 2021-09-23 18:10:[address] [facility] BMI 2021-09-23 18:10:00 18.30 kg/m2 [facility] BP Systolic 2023-08-19 15:48:00 120 mm[Hg] Azam Raphael BP Diastolic 2023-08-19 15:48:00 79 mm[Hg] zAam Raphale Weight Measured 2023-08-19 15:48:00 99.00 pounds Azam [...] Measured 2022-04-25 10:09:00 109.60 pounds Azam F Donaovn Height Measured 2022-04-25 10:09:00 65.00 inches Azam F Donavon Body Temperature 2022-04-25 10:09:00 99.00 degrees Azam F Donavon Heart Rate 2022-04-25 10:09:00 91.00 /min Azam F Donavon Respiratory Rate 2022-04-25 10:09:00 18.00 /min Azam F Donavon BP Systolic 2022-03-05 09:57:00 Azam F Donavon BP Diastolic 2022-03-05 09:57:00 Azam Raphael Weight Measured 2022-03-05 09:57:00 Azam Raphael Height Measured 2022-03-05 09:57:00 Azamaxel Raphael Body Temperature 2022-03-05 09:57:00 Azam F Donavon Heart Rate 2022-03-05 09:57:00 Azam Raphael Respiratory Rate 2022-03-05 09:57:00 Azam Raphael BP Systolic 2022-02-13 14:00:00 119 mm[Hg] Azam F Donavon BP Diastolic 2022-02-13 14:00:00 84 mm[Hg] Azam Raphael Weight Measured 2022-02-13 14:00:00 121.60 pounds Azam Raphael Height Measured 2022-02-13 14:00:00 65.00 inches Azam Raphael Body Temperature 2022-02-13 14:00:00 97.80 degrees Azam Raphale Heart Rate 2022-02-13 14:00:00 81.00 /min Azam [...] CHEST 2 VW 2023-10-11 18:21:26 Yun Sams [facility] CT CERVICAL SPINE WO CONTRAST 2023-10-11 18:17:[address] [facility] CT HEAD WO CONTRAST 2023-10-11 18:14:[address] [facility] XR HAND 3+ VW RIGHT 2023-08-20 04:38:[address] [facility] POCT TEST 2023-08-20 04:37:[address] [facility] ETHANOL 2023-08-20 04:36:00 Laurie Bowen [facility] NOTICE OF PRIVACY PRACTICES 2023-03-03 08:39:15 Doctor Unassigned, [place] [facility] CONSENT/REFUSAL FOR DIAGNOSIS AND TREATMENT 2023-03-03 08:36:34 Doctor Unassigned, [place] [facility] EXTERNAL PROVIDER RECORDS 2022-07-01 06:01:00 Doctor Unassigned, [place] [facility] AUTHORIZATION FOR RELEASE OF PHI 2021-11-25 05:01:00 Doctor Unassigned, [place] [facility] REFERRAL- REQUEST/RESPONSE 2021-11-11 05:01:00 Doctor Unassigned, [place] [facility] US PELVIS COMPLETE WITH TRANSVAGINAL 2021-10-24 13:17:52 Requisition, Paper [facility] CT THORAX W CONTRAST 2021-10-24 13:08:26 Requisition, Paper [facility] CT THORAX WO CONTRAST 2021-10-24 13:08:08 Requisition, Paper [facility] US PELVIS COMPLETE WITH TRANSVAGINAL 2021-09-23 22:52:[address] [facility] CT ABDOMEN PELVIS W CONTRAST 2021-09-23 20:02:[address] [facility] COMP. METABOLIC PANEL (76264) 2021-09-23 19:12:[address] [facility] CBC WITH DIFF 2021-09-23 19:12:00 [facility] POCT TEST 2021-09-23 18:47:[address] [facility] URINALYSIS 2021-09-23 18:41:00 Timoteo C[facility] NOTICE OF PRIVACY PRACTICES 2021-09-23 17:59:15 Doctor Unassigned, [place] [facility] CONSENT/REFUSAL FOR DIAGNOSIS AND TREATMENT 2021-09-23 17:59:01 Doctor Unassigned, [place] [facility] [id number] Colposcopy Cervix Bx Cervix endocrv Curtg 2021-08-29 00:00:00 Azam Raphael Therapeutic, prophylactic, or diagnostic injection; intravenous push, sing [facility] Therapeutic, prophylactic, or diagnostic injection; each additional sequen [facility] Plan of Care Planned Activity Planned Date Details Comments Source Goal Plan of Care Note [code = 38805-5] Goal Plan of Care Note [code = 37857-8] Goal Plan of Care Note [code = 37048-9] Goal Plan of Care Note [code = 36604-2] Goal Plan of Care Note [code = 66170-3] Goal Plan of Care Note [code = 26048-5] Goal Plan of Care Note [code = 23958-1] Goal Plan of Care Note [code = 98513-1] Goal Plan of Care Note [code = 21004-7] Goal Plan of Care Note [code = 90944-2] Goal Plan of Care Note [code = 19060-0] Goal Plan of Care Note [code = 55905-4] Goal Plan of Care Note [code = 72405-8] Goal Plan of Care Note [code = 59515-0] Goal Plan of Care Note [code = 43534-6] Goal Plan of Care Note [code = 82593-5] Goal Plan of Care Note [code = 85208-6] Goal Plan of Care Note [code = 82545-5] Goal Plan of Care Note [code = 07967-7] Goal Plan of Care Note [code = 18479-9] Goal Plan of Care Note [code = 63879-1] Goal Plan of Care Note [code = 62897-8] Goal Plan of Care Note [code = 73821-9] Goal Plan of Care Note [code = 86428-1] Goal Plan of Care Note [code = 59868-0] Goal Plan of Care Note [code = 17458-0] Goal Plan of Care Note [code = 56010-5] Goal Plan of Care Note [code = 96560-3] Goal Plan of Care Note [code = 85185-1] Goal Plan of Care Note [code = 61226-8] Goal Plan of Care Note [code = 90094-4] Goal Plan of Care Note [code = 37271-3] Goal Plan of Care Note [code = 97138-5] Goal Plan of Care Note [code = 24899-3] Goal Plan of Care Note [code = 23647-7] Goal Plan of Care Note [code = 50019-3] Goal Plan of Care Note [code = 45978-2] Goal Plan of Care Note [code = 79920-0] Goal Plan of Care Note [code = 13833-0] Goal Plan of Care Note [code = 09215-9] Goal Plan of Care Note [code = 08922-0] Goal Plan of Care Note [code = 41971-1] Goal Plan of Care Note [code = 97428-9] Goal Plan of Care Note [code = 58369-2] Goal Plan of Care Note [code = 16563-9] Goal Plan of Care Note [code = 42293-7] Goal Plan of Care Note [code = 06644-1] Goal Plan of Care Note [code = 44651-6] Goal Plan of Care Note [code = 93753-7] Goal Plan of Care Note [code = 50781-4] Goal Plan of Care Note [code = 32797-3] Goal Plan of Care Note [code = 42168-5] Goal Plan of Care Note [code = 70302-1] Goal Plan of Care Note [code = 94307-3] Goal Plan of Care Note [code = 76821-4] Goal Plan of Care Note [code = 45102-5] Goal Plan of Care Note [code = 67591-9] Goal Plan of Care Note [code = 45838-1] Goal Plan of Care Note [code = 43577-8] Goal Plan of Care Note [code = 38435-1] Goal Plan of Care Note [code = 53881-2] Goal Plan of Care Note [code = 52641-3] Goal Plan of Care Note [code = 67542-6] Goal Plan of Care Note [code = 96632-0] Goal Plan of Care Note [code = 29686-2] Goal Plan of Care Note [code = 60154-0] Goal Plan of Care Note [code = 00023-8] Goal Plan of Care Note [code = 37982-2] Goal Plan of Care Note [code = 34425-0] Goal Plan of Care Note [code = 59869-7] Goal Plan of Care Note [code = 04926-9] Goal Plan of Care Note [code = 12974-8] Goal Plan of Care Note [code = 00915-7] Goal Plan of Care Note [code = 69532-3] Goal Plan of Care Note [code = 40726-4] Goal Plan of Care Note [code = 75200-5] Goal Plan of Care Note [code = 79251-5] Goal Plan of Care Note [code = 09804-4] Goal Plan of Care Note [code = 77754-8] Goal Plan of Care Note [code = 72132-5] Goal Plan of Care Note [code = 23508-8] Goal Plan of Care Note [code = 45292-9] Goal Plan of Care Note [code = 82300-3] Goal Plan of Care Note [code = 13613-8] Goal Plan of Care Note [code = 02032-2] Goal Plan of Care Note [code = 76025-9] Goal Plan of Care Note [code = 38035-2] Goal Plan of Care Note [code = 14269-7] Goal Plan of Care Note [code = 89810-2] Goal Plan of Care Note [code = 32982-7] Goal Plan of Care Note [code = 94738-6] Goal Plan of Care Note [code = 80194-3] Goal Plan of Care Note [code = 23411-7] Goal Plan of Care Note [code = 27394-1] Goal Plan of Care Note [code = 53263-7] Goal Plan of Care Note [code = 95238-2] Goal Plan of Care Note [code = 74665-0] Goal Plan of Care Note [code = 99663-0] Goal Plan of Care Note [code = 95528-5] Goal Plan of Care Note [code = 28496-4] Goal Plan of Care Note [code = 11305-1] Goal Plan of Care Note [code = 88920-8] Goal Plan of Care Note [code = 02059-6] Goal Plan of Care Note [code = 56849-3] Goal Plan of Care Note [code = 71059-4] Goal Plan of Care Note [code = 53546-4] Goal Plan of Care Note [code = 71579-3] Goal Plan of Care Note [code = 91495-9] Goal Plan of Care Note [code = 74305-6] Goal Plan of Care Note [code = 26023-4] Goal Plan of Care Note [code = 17915-8] Goal Plan of Care Note [code = 83058-9] Goal Plan of Care Note [code = 72273-2] Goal Plan of Care Note [code = 14658-4] Goal Plan of Care Note [code = 67248-3] Goal Plan of Care Note [code = 23990-5] Goal Plan of Care Note [code = 41776-5] Goal Plan of Care Note [code = 57693-1] Goal Plan of Care Note [code = 90792-9] Goal Plan of Care Note [code = 06326-1] Goal Plan of Care Note [code = 93388-0] Goal Plan of Care Note [code = 78857-9] Goal Plan of Care Note [code = 70528-4] Goal Plan of Care Note [code = 57202-1] Goal Plan of Care Note [code = 47593-3] Goal Plan of Care Note [code = 91881-7] Goal Plan of Care Note [code = 27861-4] Goal Plan of Care Note [code = 73248-6] Goal Plan of Care Note [code = 01386-6] Goal Plan of Care Note [code = 34743-2] Goal Plan of Care Note [code = 35119-3] Goal Plan of Care Note [code = 71891-1] Goal Plan of Care Note [code = 52669-5] Goal Plan of Care Note [code = 43194-0] Goal Plan of Care Note [code = 98069-2] Goal Plan of Care Note [code = 52487-9] Goal Plan of Care Note [code = 12760-3] Goal Plan of Care Note [code = 86972-3] Goal Plan of Care Note [code = 27563-3] Goal Plan of Care Note [code = 84500-8] Goal Plan of Care Note [code = 07213-0] Goal Plan of Care Note [code = 94684-9] Goal Plan of Care Note [code = 28536-7] Goal Plan of Care Note [code = 22132-5] Goal Plan of Care Note [code = 63297-0] Goal Plan of Care Note [code = 01006-2] Goal Plan of Care Note [code = 58549-6] Goal Plan of Care Note [code = 32185-6] Encounters Start Date/Time End Date/Time Encounter Type Admission Type Attending Clinicians Care Facility Care Department Encounter ID Source 2021-02-23 16:17:01 Emergency [facility] [id number] [facility] 2021-02-22 13:07:11 Emergency Krista VALDO [facility] [id number] [facility] 2023-10-27 22:19:00 2023-10-28 00:48:00 Outpatient [id number] [id number] 2023-10-27 22:19:00 2023-10-28 00:48:00 Emergency PIOTR BORJA [id number] [facility] [id number] [place] 2023-10-27 22:19:00 2023-10-27 22:19:00 Abrasion, right knee, initial encounter 10/27/2023 SNOMED-CT 1.3.6.1.4 .1.33236 1.3.6.1.4.1 .81806 pk8l0r1v-3 cf1-4ae9-8 453-2k1810 36454r 2023-10-11 12:30:00 2023-10-11 15:59:00 Emergency YUN DANIEL ROBERT [facility] ERT [id number] [facility] 2023-10-11 12:30:00 2023-10-11 15:59:00 Emergency Yun Sams [facility] 1.2.840.114 350.1.13.10 4.2.7.2.[id number] [facility] 2023-08-26 15:32:57 2023-08-26 15:32:57 Outpatient [facility] [id number] Azam Raphael 2023-08-19 23:06:00 2023-08-20 01:04:00 Emergency X LAURIE BOWEN [facility] ERT [id number] [facility] 2023-08-19 23:06:00 2023-08-20 01:04:00 Emergency Azam Rooney Andres [facility] 1.2.840.114 350.1.13.10 4.2.7.2.[id number] [facility] 2023-08-14 10:21:08 2023-08-14 10:21:08 Outpatient [facility] [id number] Azam Raphael 2023-08-14 00:00:00 2023-08-14 00:00:00 Outpatient Visit [facility] [id number] Azam Raphael 2023-07-30 09:00:00 2023-07-30 09:00:00 Outpatient CHASITY SALVADOR [id number] [facility] 2023-07-16 18:15:00 2023-07-16 18:15:00 Outpatient DIANN PONCE [id number] [facility] 2023-07-16 17:55:00 2023-07-16 17:55:00 Outpatient ELLIOT CAMEJO [id number] [facility] 2023-06-25 10:15:00 2023-06-25 10:15:00 Outpatient MAYNOR SAMUEL [id number] [facility] 2023-06-22 10:12:02 2023-06-22 10:12:02 Outpatient [facility] [id number] Azam Raphael 2023-06-18 16:35:48 2023-06-18 16:35:48 Outpatient [facility] [id number] Azam Raphael 2023-06-18 00:00:00 2023-06-18 00:00:00 Outpatient Visit [facility] [id number] mg-4a34-a [id number] cd54cf Azam Raphael 2023-06-08 14:44:09 2023-06-08 14:44:09 Outpatient [facility] [id number] Azam Raphael 2023-06-04 10:48:04 2023-06-04 10:48:04 Outpatient [facility] [id number] Azam Raphael 2023-05-25 08:44:02 2023-05-25 08:44:02 Outpatient [facility] [id number] Azam Raphael 2023-04-21 13:55:33 2023-04-21 13:55:33 Outpatient [facility] [id number] Azam Raphael 2023-04-02 17:25:25 2023-04-02 17:25:25 Outpatient [facility] [id number] Azam Raphael 2023-03-03 02:58:00 2023-03-03 03:49:00 Emergency X ERICKANKITJÚNIORGUILHERME [facility] ERT [id number] [facility] 2023-03-03 02:58:00 2023-03-03 03:49:00 Emergency Guilherme Wilder [facility] 1.2.840.114 350.1.13.10 4.2.7.2.[id number] [facility] 2023-01-07 13:16:59 2023-01-07 13:16:59 Outpatient [facility] [id number] Azam Raphael 2022-12-03 19:26:04 2022-12-03 19:26:04 Outpatient [facility] [id number] Azam Raphael 2022-11-17 13:05:19 2022-11-17 13:05:19 Outpatient [facility] [id number] Azam aRphael 2022-11-10 10:41:21 2022-11-10 10:41:21 Outpatient [facility] [id number] Azam Raphael 2022-11-08 14:16:42 2022-11-08 14:16:42 Outpatient [facility] [id number] Azam Raphael 2022-10-31 14:26:52 2022-10-31 14:26:52 Outpatient [facility] [id number] Azam Raphael 2022-10-27 11:18:15 2022-10-27 11:18:15 Outpatient [facility] [id number] Azam Vallejo Donavon 2022-10-24 15:42:10 2022-10-24 15:42:10 Outpatient [facility] [id number] Azam Raphael 2022-07-08 14:24:41 2022-07-08 14:24:41 Out[place] [id number] Azam Vallejo [place] 2022-07-01 00:00:00 2022-07-01 00:00:00 Orders Only Doctor Unassigned, [place] [address].840.114 350.1.13.10 4.2.7.2.[id number] [facility] 2022-05-07 00:00:00 2022-05-07 00:00:00 Telephone Cathie Subramanian [facility] 1.2.840.114 350.1.13.10 4.2.7.2.[id number] [facility] 2022-05-05 00:00:00 2022-05-05 00:00:00 Telephone Cathie Subramanian [facility] ..840.114 350.1.13.10 4.2.7.2.[id number] [facility] 2022-05-01 16:00:00 2022-05-01 16:00:00 Outpatient RIVERA RIVERA [facility] [id number] [facility] 2022-04-30 14:30:00 2022-04-30 14:30:00 [facility] 1.2.840.114 350.1.13.10 4.2.7.2.[id number] [facility] 2022-04-30 14:30:00 2022-04-30 14:22:11 Outpatient R CATHIE SUBRAMANIAN [facility] [id number] [facility] 2022-04-29 14:00:00 2022-04-29 14:00:00 Outpatient RIVERA RIVERA [facility] [id number] [facility] 2022-04-29 00:00:00 2022-04-29 00:00:00 Telephone Rivera Pink [facility] 1.2.840.114 350.1.13.10 4.2.7.2.[id number] [facility] 2022-04-28 00:00:00 2022-04-28 00:00:00 Telephone Cathie Subramanian [facility] 1.2.840.114 350.1.13.10 4.2.7.2.[id number] [facility] 2022-04-25 10:00:19 2022-04-25 10:00:19 Outpatient [facility] [id number] Azam Raphael 2022-04-01 14:00:00 2022-04-01 14:00:00 Outpatient JESSE SHIELDS [facility] [id number] [facility] 2022-03-27 13:30:00 2022-03-27 13:30:00 Outpatient JESSE SHIELDS [facility] [id number] [facility] 2022-03-05 00:00:00 2022-03-05 00:00:00 Outpatient Visit [id number] -r82k-mfn [id number] [id number]-5 g74-352h-v 71d-bbd24e 9a5bdc 2022-02-14 09:30:00 2022-02-14 09:30:00 Outpatient ERICA MELENDEZ [facility] [id number] [facility] 2022-02-13 13:45:00 2022-02-13 13:45:00 Outpatient [facility] [id number] Azam Raphael 2022-02-13 00:00:00 2022-02-13 00:00:00 Outpatient Visit [id number] -bq19-05n [id number] [id number] 32d-427d-a b13-40u2xo d971ae 2021-11-25 00:00:00 2021-11-25 00:00:00 Orders Only Doctor Unassigned, [place] [address].2.840.114 350.1.13.10 4.2.7.2.[id number] [facility] 2021-11-11 00:00:00 2021-11-11 00:00:00 Orders Only Doctor Unassigned, [place] [address].2.840.114 350.1.13.10 4.2.7.2.[id number] [facility] 2021-10-30 00:00:00 2021-10-30 00:00:00 Outpatient Visit [id number] h7f8-140r -hh3h-8vc [id number] 1t3-932l-l m5c-3mziiu [id number] 2021-10-24 07:29:35 2021-10-24 23:59:00 Outpatient Opal BRAVO [facility] [id number] [facility] 2021-10-24 07:29:35 2021-10-24 23:59:00 Hospital Encounter Radiology [facility] ([facility]) 1.2.840.114 350.1.13.10 4.2.7.2.[id number] [facility] 2021-10-24 07:28:55 2021-10-24 07:28:55 Hospital Encounter Radiology [facility] ([facility]) 1.2.840.114 350.1.13.10 4.2.7.2.[id number] [facility] 2021-10-24 07:28:21 2021-10-24 07:28:21 Hospital Encounter Radiology [facility] ([facility] 1.2.840.114 350.1.13.10 4.2.7.2.[id number] [facility] 2021-10-24 00:00:00 2021-10-24 00:00:00 Outpatient R RADIOLOGY [facility] [id number] [facility] 2021-09-24 00:00:00 2021-09-24 00:00:00 Patient Secure Msg Doctor Unassigned, [place] [facility] 1.2.840.114 350.1.13.10 4.2.7.2.[id number] [facility] 2021-09-23 13:12:00 2021-09-23 18:47:00 Emergency X TIMOTEO CISSE [facility] ERT [id number] [facility] 2021-09-23 13:12:00 2021-09-23 18:47:00 Emergency Timoteo Cisse S [facility] 1.2.840.114 350.1.13.10 4.2.7.2.[id number] [facility] 2021-09-23 00:00:00 2021-09-23 00:00:00 Orders Only Doctor Unassigned, [place] [facility] 1.2.840.114 350.1.13.10 4.2.7.2.[id number] [facility] 2021-01-07 00:00:00 2021-01-07 00:00:00 Patient Secure Msg Karen Burnett [facility] 1.2.840.114 350.1.13.10 4.2.7.2.[id number] [facility] 2021-01-03 15:45:00 2021-01-03 15:45:[address] [facility] [id number] [facility] 2020-08-09 00:00:00 2020-08-09 00:00:[address] [facility] [id number] [facility] 2020-06-18 10:00:00 2020-06-18 10:00:00 Outpatient R [facility] [id number] [facility] 2020-06-15 00:00:00 2020-06-15 00:00:00 Patient Secure Msg Jesse [place] [facility] 1..840.114 350.1.13.10 4.2.7.2.[id number] [facility] 2020-05-23 14:45:00 2020-05-23 14:45:00 Outpatient R KAREN BURNETT [facility] [id number] [facility] 2020-05-17 00:00:00 2020-05-17 00:00:00 Patient Secure Msg Doctor Unassigned, [place] [facility] 1.2.840.114 350.1.13.10 4.2.7.2.[id number] [facility] 2020-05-15 13:00:00 2020-05-15 13:00:00 Outpatient R [facility] [id number] [facility] 2020-05-11 13:30:00 2020-05-11 13:30:00 Outpatient R [facility] [id number] [facility] 2020-05-09 10:30:00 2020-05-09 10:30:00 Outpatient R SHERLYN BURNETTCY [facility] [id number] [facility] 2020-04-13 00:00:00 2020-04-13 00:00:00 Patient Secure Msg Doctor Unassigned, [place] [facility] [place] 1.840.114 350.1.13.10 4.2.7.2.[id number] 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 2020-04-11 00:00:00 2020-04-11 00:00:00 Patient Secure Msg Doctor Unassigned, [place] [facility] 1.840.114 350.1.13.10 4.2.7.2.[id number] [facility] 2020-04-04 09:45:00 2020-04-04 09:45:00 Outpatient R BRYN BRADLEY [facility] [id number] [facility] 2019-12-28 09:15:00 2019-12-28 09:15:00 Outpatient YANICK HINDS [facility] [id number] [facility] 2019-12-28 05:38:00 2019-12-28 05:38:00 Outpatient JESUS GUILLEN [facility] [id number] Clarenceagoopal da [facility] 2019-12-09 09:26:2019-12-09 09:26:00 Outpatient JESUS GUILLEN [facility] [id number] Clarenceagoopal da [facility] 2019-08-04 13:30:00 2019-08-04 13:30:00 Outpatient R [facility] [id number] [facility] 2019-07-25 08:00:00 2019-07-25 08:00:00 Outpatient R AMIRA Hauser [facility] [id number] [facility] 2019-07-18 14:00:00 2019-07-18 14:00:00 Outpatient R [facility] [id number] [facility] 2019-07-18 10:00:00 2019-07-18 10:00:00 Outpatient R AMIRA Hauser [facility] [id number] [facility] 2019-07-11 15:00:00 2019-07-11 15:00:00 Outpatient JESSE SHIELDS [facility] [id number] [facility] 2019-06-20 11:00:00 2019-06-20 11:00:00 Outpatient KAREN KEN [facility] [id number] [facility] 2019-05-10 08:56:42 2019-05-10 23:59:00 Outpatient CARL RIVERA [facility] [id number] Jennifer [facility] 2019-04-28 14:00:00 2019-04-28 14:00:00 Outpatient AMNA BHANDARI [facility] [id number] [facility] 2019-04-18 15:00:00 2019-04-18 16:35:19 Outpatient RUSTAM RAVI [facility] [id number] [facility] 2019-04-14 15:30:00 2019-04-14 16:09:05 Outpatient ISRAEL SILVA SHANNON [facility] [id number] [facility] 2019-04-07 09:30:00 2019-04-07 14:57:02 Outpatient LENNOX BENSON [facility] [id number] [facility] 2019-01-27 15:00:00 2019-01-27 15:00:00 Outpatient P RUSTAM THRASHER [facility] [id number] [facility] 2019-01-26 14:30:00 2019-01-26 14:25:24 Outpatient P AZEB MORRISON [facility] [id number] [facility] 2018-12-30 10:00:00 2018-12-30 11:14:24 Outpatient P AMNA CLARK [facility] [id number] [facility] 2018-12-29 10:45:00 2018-12-29 10:45:00 Outpatient P NISH GLOVER [facility] [id number] [facility] Results Test Description Test Time Test Comments Results Result Comments Source XR CHEST 2 VW 2023-09-26 20:03:16 EXAM: XR CHEST 2 10/11/2023 1:17 [...] and soft tissues: No acute osseous abnormality. [facility] CT HEAD WO CONTRAST 2023-09-26 6 18:53:57 [...] is intact. The intervertebraldisc spaces are preserved. [facility] CT CERVICAL SPINE WO CONTRAST 2023-09-26 6 [...] is intact. The intervertebraldisc spaces are preserved. [facility] XR HAND 3+ VW RIGHT 2023-07-28 5 05:21:49 Ordering physician: LAURIE BOWEN INDICATION: Right hand injury COMPARISON: None FINDINGS: 3 views of the right hand. No acute fracture or dislocation isappreciated. There is apparent bony remodeling of the fifth metacarpal,possibly reflecting healed remote fracture. [facility] [id number] 00:00:00* Test Item Value Reference Range Interpretation [...] ABS NUCLEATED RBCS (test cod e = 97772) 0.00 K/UL Azam RaphaelCOMPREHENSIVE METABOLIC [id number] 00:00:00* Test Item Value Reference Range Interpretation Comme nts GLUCOSE (test code = 2217) 110 MG/DL BUN (test code = 2208) 17 MG/DL CREATININE (test code = 2214) 0.72 MG/DL eGFR (2020 CKD-EPI) (test code = 99632) 112 ML/MIN/1.73 CALC BUN/CREAT (test code = [...] 15 U/L Azam RaphaelTSH REFLEX TO FREE [id number] 00:00:00* Test Item Value Reference Range Interpretation Comme nts TSH REFLEX TO FREE T4 (test code = 2834) 0.703 UIU/ML Azam RaphaelHIV 1/2 4TH GEN, RFLX [id number] 00:00:00* Test Item Value Reference Range Interpretation Comme nts HIV 1/2 4TH GEN, RFLX CONF ( test code = 3514) NON-REACTIVE Azam RaphaelRPR REFLEX TO T. PALLIDUM - [id number] 00:00:00* Test Item Value Reference Range Interpretation Comme nts RPR (test code = 94480) NON-REACTIVE RPR TITER (test code = 3500) [...] (NOTE) INTERPRETATION HEPATITIS B: (test code = 38589) (NOTE) INTERPRETATION HEPATITIS C: (test code = 01445) (NOTE) Azam RaphaelHEPATITIS A IgM [REFLEX]2023-08-15 00:00:00* Test Item Value Reference Range Interpretation Comme nts HEPATITIS A IgM (test code = 2728) NON-REACTIVE Azam RaphaelLIPID [id number] 00:00:00* Test Item Value Reference Range Interpretation Comme nts CHOLESTEROL (test code = 2210) 184 MG/DL TRIGLYCERIDES (test code = 2232) 69 MG/DL HDL CHOLESTEROL (test code = 2220) 67 MG/DL CALC LDL CHOL (test code = 2237) 101 MG/DL RISK RATIO LDL/HDL (test cod e = 2238) 1.51 RATIO Azam RaphaelCBC W/AUTO [id number] 00:00:00* Test Item Value Reference Range Interpretation [...] ABS NUCLEATED RBCS (test cod e = 05581) 0.00 K/UL Azam Yoni DonavonCOMPREHENSIVE METABOLIC [id number] 00:00:00* Test Item Value Reference Range Interpretation Comme nts GLUCOSE (test code = 2217) 110 MG/DL BUN (test code = 2208) 17 MG/DL CREATININE (test code = 2214) 0.72 MG/DL eGFR (2020 CKD-EPI) (test code = 67108) 112 ML/MIN/1.73 CALC BUN/CREAT (test code = [...] 15 U/L Azam RaphaelTSH REFLEX TO FREE [id number] 00:00:00* Test Item Value Reference Range Interpretation Comme nts TSH REFLEX TO FREE T4 (test code = 2834) 0.703 UIU/ML Azam Vallejo AustinHIV 1/2 4TH GEN, RFLX [id number] 00:00:00* Test Item Value Reference Range Interpretation Comme nts HIV 1/2 4TH GEN, RFLX CONF ( test code = 3514) NON-REACTIVE Azam RaphaelRPR REFLEX TO T. PALLIDUM - [id number] 00:00:00* Test Item Value Reference Range Interpretation Comme nts RPR (test code = 18566) NON-REACTIVE RPR TITER (test code = 3500) [...] (NOTE) INTERPRETATION HEPATITIS B: (test code = 56520) (NOTE) INTERPRETATION HEPATITIS C: (test code = 06346) (NOTE) Azam RaphaelHEPATITIS A IgM [REFLEX][id number] 00:00:00* Test Item Value Reference Range Interpretation Comme nts HEPATITIS A IgM (test code = 2728) NON-REACTIVE Azam RaphaelLIPID [id number] 00:00:00* Test Item Value Reference Range Interpretation Comme nts CHOLESTEROL (test code = 2210) 184 MG/DL TRIGLYCERIDES (test code = 2232) 69 MG/DL HDL CHOLESTEROL (test code = 2220) 67 MG/DL CALC LDL CHOL (test code = 2237) 101 MG/DL RISK RATIO LDL/HDL (test cod e = 2238) 1.51 RATIO Azam RaphaelHERPES SIMPLEX AB, [id number] 20:04:09* Test Item Value Reference Range Interpretation Comme [facility] HERPES SIMPLEX AB, IgM (test code = 89846) 1.03 INDEX SEE BELOW H FOR EQUIVOCAL [...] AND COMPARISON TO ACUTE OR CONVALESCENT TYPE-SPECIFIC [id number] HSV2 IgG ASSAYS SHOULD BE CONSIDERED. INTERPRETATION UNITS RANGE ----- ----- NEGATIVE INDEX <=0.89 EQUIVOCAL INDEX 0.90-1.09 POSITIVE INDEX >=1.10 PAP TEST, THINPREP, [id number] 14:19:03* Test Item Value Reference Range Interpretation Comme [facility] SOURCE: (test code = 8001) Cervical/Endo cervical SLIDES: (test code = 8011) 1 LMP: (test code = 8021) 12/26/2022 SPECIMEN ADEQUACY: (test code = 75816) (NOTE) Satisfactory for evaluation. Endocervical cells/transformation zone component not identified. INTERPRETATION: (test code = 36629) NILM/NO EPITH. ABNORMALITY;S EE BELOW ---- NEGATIVE FOR INTRAEPITHELIAL LESION OR MALIGNANCY (NILM) - OTHER COMMENTS: (test code = 8081) (NOTE) Shift in hallie suggestive of bacterial vaginosis. QUALITY CONTROL OPERATOR: (test code = 8101) HAYLIE Beach (ASCP) LOCATION: (test code = 35525) (NOTE) Specimens proces sed and interpreted at [facility], [address] [place] [address], , CLIA: [id number] CPT: (test code = 8140) (NOTE) 59855 UNLESS OTH ERWISE INDICATED, COMPUTER AIDED AND QUALITY CONTROL OPERATOR SCREENING PERFORMED. The Pap test is a screening test with an inherent, but low probability of error. Your patient should be reminded to consult you immediately if she experiences any suspicious signs or symptoms, regardless of her Pap test result. An alternate report format containing images or consolidated prior Pap history is available as applicable. HPV HIGH RISK WITH GENOTYPE, [id number] 14:13:14* Test Item Value Reference Range Interpretation Comme nts HPV HIGH RISK INTERP (test code = 08463) NEGATIVE NEGATIVE HPV 16 (test code = 32519) NEGATIVE HPV 18 (test code = 02880) NEGATIVE HPV, HR, OTHER GENOTYPES (test code = 90613) NEGATIVE Testing methodol ogy is real-time PCR [...] TESTING PERFORMED AT [facility] [address] [place] [address] DERRICK BOAT CAPTAIN: CYNDEE MCPHERSON M.D. CLIA NUMBER [id number] [facility] [place]. [id number] VAGINAL PATHOGENS DNA [id number] 13:04:06* Test Item Value Reference Range Interpretation Comme nts DWIGHT SPECIES (test code = 87956) NEGATIVE NEGATIVE G. VAGINALIS (test code = 86150) POSITIVE NEGATIVE A T. VAGINALIS (test code = 24800) NEGATIVE NEGATIVE Note: The [employer] [facility] VPIII Microbial Identification Testis a DNA probe test intended for use in the detectionand identification of Dwight species, Gardnerellavaginalis and Trichomonas vaginalis nucleic acid. CT/NG, NAAT, [id number] 11:41:28* Test Item Value Reference Range Interpretation Comme nts CHLAMYDIA, NAAT, THINPREP (test code = 35565) NEGATIVE NEGATIVE A negative resul t does not exclude low level infection, specimensampling error, or collection error. Testing is performed with the [employer] 6800/8800 systems usingreal-time Polymerase Chain Reaction (PCR) method. GONORRHEA, NAAT, THINPREP (test code = 72731) NEGATIVE NEGATIVE A negative resul t does not exclude low level infection, specimensampling error, or collection error. Testing is performed with the [employer] 6800/8800 systems usingreal-time Polymerase Chain Reaction (PCR) method. [id number] 05:38:12* Test Item Value Reference Range Interpretation Comme nts RPR RESULT (test code = 3501) NON-REACTIVE NON-REACTIVE RPR TITER (test code = 3500) NOT INDIC. TITER NOT INDIC. HIV 1/2 4TH GEN, RFLX [id number] 04:19:13* Test Item Value Reference Range Interpretation Comme nts HIV 1/2 4TH GEN, RFLX CONF ( test code = 3514) NON-REACTIVE NON-REACTIVE HEPATITIS PANEL, [id number] 04:19:13* Test Item Value Reference Range Interpretation Comme nts HEPATITIS A IgM (test code = 84227) NON-REACTIVE NON-REACTIVE HEPATITIS B CORE IgM (test code = 4644) NON-REACTIVE NON-REACTIVE HEPATITIS B SURF AG (test code = 2739) NON-REACTIVE NON-REACTIVE HEPATITIS C ANTIBODY (test code = 4675) NON-REACTIVE NON-REACTIVE INTERPRETATION HEPATITIS A: (test code = 2552) (NOTE) Hepatitis A serology shows no evidence of acute hepatitis A. INTERPRETATION HEPATITIS B: (test code = 16541) (NOTE) Hepatitis B serology shows no evidence of acute hepatitis B andno indication of exposure to hepatitis B virus in the previous kiko eight months. INTERPRETATION HEPATITIS C: (test code = 56798) (NOTE) Hepatitis C serology shows no evidence of exposure to hepatitisC virus at this time. It can take up to 12 months after exposure tothe hepatitis C virus for antibodies to become detectable in the blood in certain patients. HERPES SIMPLEX 1/2 AB, IgG [id number] 04:19:13* Test Item Value Reference Range Interpretation Comme nts HERPES SIMPLEX 1 AB, IgG (test code = 70354) 11.900 INDEX SEE BELOW H INTERPRETATION U NITS RANGE ----- ----- NON-REACTIVE INDEX <1.000 REACTIVE INDEX >=1.000 HERPES SIMPLEX 2 AB, IgG (test code = 01884) 21.200 INDEX SEE BELOW H INTERPRETATION U NITS RANGE ----- ----- NON-REACTIVE INDEX <1.000 REACTIVE INDEX >=1.000 UNLESS OTHERWISE INDICATED, ALL TESTING PERFORMED AT [facility] [address] [place] [address] DERRICK BOAT CAPTAIN: CYNDEE MCPHERSON M.D. CLIA NUMBER [id number] [facility] [place]. [id number] PAP TEST, THINPREP, [id number] 00:00:00* Test Item Value Reference Range Interpretation Comme nts SOURCE: (test code = 8001) Cervical/Endocervical SLIDES: (test code = 8011) 1 LMP: (test code = 8021) 12/26/2022 SPECIMEN ADEQUACY: (test code = 72389) (NOTE) INTERPRETATION: (test code = 34840) NILM/NO EPITH. ABNORMALITY;SEE BELOW OTHER COMMENTS: (test code = 8081) (NOTE) QUALITY CONTROL OPERATOR: (test code = 8101) HAYLIE Beach (ASCP) LOCATION: (test code = 29408) (NOTE) CPT: (test code = 8140) (NOTE) Azam RaphaelVAGINAL PATHOGENS DNA [id number] 00:00:00* Test Item Value Reference Range Interpretation Comme nts DWIGHT SPECIES (test code = 13720) NEGATIVE G. VAGINALIS (test code = 27939) POSITIVE T. VAGINALIS (test code = ) NEGATIVE Azam RaphaelHPV HIGH RISK WITH GENOTYPE, [id number] 00:00:00* Test Item Value Reference Range Interpretation Comme nts HPV HIGH RISK INTERP (test c ode = 47024) NEGATIVE HPV 16 (test code = 42910) NEGATIVE HPV 18 (test code = 67405) NEGATIVE HPV, HR, OTHER GENOTYPES (te st code = 28090) NEGATIVE Azam [id number] 00:00:00* Test Item Value Reference Range Interpretation Comme nts RPR RESULT (test code = 3501) NON-REACTIVE RPR TITER (test code = 3500) NOT INDIC. TITER Azam RaphaelACUTE HEPATITIS [id number] 00:00:00* Test Item Value Reference Range Interpretation Comme nts HEPATITIS A IgM (test code = 61741) NON-REACTIVE HEPATITIS B CORE IgM (test c ode = 4644) NON-REACTIVE HEPATITIS B SURF AG (test co de = 2739) NON-REACTIVE HEPATITIS C ANTIBODY (test c ode = 4675) NON-REACTIVE INTERPRETATION HEPATITIS A: (test code = 2552) (NOTE) INTERPRETATION HEPATITIS B: (test code = 29082) (NOTE) INTERPRETATION HEPATITIS C: (test code = 51376) (NOTE) Azam PuentePES SIMPLEX [id number] 00:00:00* Test Item Value Reference Range Interpretation Comme nts HERPES SIMPLEX AB, IgM (test code = 01317) 1.03 INDEX Azam RaphaelHERPES SIMPLEX 1/2 [id number] 00:00:00* Test Item Value Reference Range Interpretation Comme nts HERPES SIMPLEX 1 AB, IgG (te st code = 80173) 11.900 INDEX HERPES SIMPLEX 2 AB, IgG (te st code = 59426) 21.200 INDEX Azam RaphaelHIV 1/2 4TH GEN, RFLX [id number] 00:00:00* Test Item Value Reference Range Interpretation Comme nts HIV 1/2 4TH GEN, RFLX CONF ( test code = 3514) NON-REACTIVE Azam RaphaelGC AND CHLAMYDIA AMPLIFIED, [id number] 00:00:00* Test Item Value Reference Range Interpretation Comme nts CHLAMYDIA, NAAT, THINPREP (t est code = 44401) NEGATIVE GONORRHEA, NAAT, THINPREP (t est code = 09900) NEGATIVE Azam RaphaelPAP TEST, THINPREP, [id number] 00:00:00* Test Item Value Reference Range Interpretation Comme nts SOURCE: (test code = 8001) Cervical/Endocervical SLIDES: (test code = 8011) 1 LMP: (test code = 8021) 12/26/2022 SPECIMEN ADEQUACY: (test code = 97166) (NOTE) INTERPRETATION: (test code = 84047) NILM/NO EPITH. ABNORMALITY;SEE BELOW OTHER COMMENTS: (test code = 8081) (NOTE) QUALITY CONTROL OPERATOR: (test code = 8101) HAYLIE Beach (ASCP) LOCATION: (test code = 53251) (NOTE) CPT: (test code = 8140) (NOTE) Azam RaphaelVAGINAL PATHOGENS DNA [id number] 00:00:00* Test Item Value Reference Range Interpretation Comme nts DWIGHT SPECIES (test code = 72741) NEGATIVE G. VAGINALIS (test code = 67431) POSITIVE T. VAGINALIS (test code = 64791) NEGATIVE Azam RaphaelHPV HIGH RISK WITH GENOTYPE, [id number] 00:00:00* Test Item Value Reference Range Interpretation Comme nts HPV HIGH RISK INTERP (test c ode = 98748) NEGATIVE HPV 16 (test code = 17869) NEGATIVE HPV 18 (test code = 60444) NEGATIVE HPV, HR, OTHER GENOTYPES (te st code = 45729) NEGATIVE Azam [id number] 00:00:00* Test Item Value Reference Range Interpretation Comme nts RPR RESULT (test code = 3501) NON-REACTIVE RPR TITER (test code = 3500) NOT INDIC. TITER Azam RaphaelACUTE HEPATITIS [id number] 00:00:00* Test Item Value Reference Range Interpretation Comme nts HEPATITIS A IgM (test code = 81673) NON-REACTIVE HEPATITIS B CORE IgM (test c ode = 4644) NON-REACTIVE HEPATITIS B SURF AG (test co de = 4719) NON-REACTIVE HEPATITIS C ANTIBODY (test c ode = 4619) NON-REACTIVE INTERPRETATION HEPATITIS A: (test code = 2552) (NOTE) INTERPRETATION HEPATITIS B: (test code = 37129) (NOTE) INTERPRETATION HEPATITIS C: (test code = 05841) (NOTE) Azam PuentePES SIMPLEX [id number] 00:00:00* Test Item Value Reference Range Interpretation Comme nts HERPES SIMPLEX AB, IgM (test code = 36737) 1.03 INDEX Azam RaphaelHERPES SIMPLEX 1/2 [id number] 00:00:00* Test Item Value Reference Range Interpretation Comme nts HERPES SIMPLEX 1 AB, IgG (te st code = 85039) 11.900 INDEX HERPES SIMPLEX 2 AB, IgG (te st code = 03739) 21.200 INDEX Azam RaphaelHIV 1/2 4TH GEN, RFLX [id number] 00:00:00* Test Item Value Reference Range Interpretation Comme nts HIV 1/2 4TH GEN, RFLX CONF ( test code = 3514) NON-REACTIVE Azam RaphaelGC AND CHLAMYDIA AMPLIFIED, [id number] 00:00:00* Test Item Value Reference Range Interpretation Comme nts CHLAMYDIA, NAAT, THINPREP (t est code = 62390) NEGATIVE GONORRHEA, NAAT, THINPREP (t est code = 38708) NEGATIVE Azam RaphaelPAP TEST, THINPREP, [id number] 12:31:46* Test Item Value Reference Range Interpretation Comme nts SOURCE: (test code = 8001) Cervical SLIDES: (test code = 8011) 1 LMP: (test code = 8021) NOT GIVEN SPECIMEN ADEQUACY: (test code = 84419) (NOTE) Satisfactory for evaluation. Endocervical cells/transformation zone component present. INTERPRETATION: (test code = 99155) NILM/NO EPITH. ABNORMALITY;SEE BELOW --- - NEGATIVE FOR INTRAEPITHELIAL LESION OR MALIGNANCY (NILM) ---- QUALITY CONTROL OPERATOR : (test code = 8101) HAYLIE Beach (ASCP) LOCATION: (test code = 22090) (NOTE) Specimens proces sed and interpreted at [facility], [address] [place] [address], , CLIA: [id number] CPT: (test code = 8140) (NOTE) 81357 UNLESS OTH ERWISE INDICATED, COMPUTER AIDED AND QUALITY CONTROL OPERATOR SCREENING PERFORMED. The Pap test is a screening test with an inherent, but low probability of error. Your patient should be reminded to consult you immediately if she experiences any suspicious signs or symptoms, regardless of her Pap test result. An alternate report format containing images or consolidated prior Pap history is available as applicable. HPV HIGH RISK WITH GENOTYPE, [id number] 12:26:32* Test Item Value Reference Range Interpretation Comme nts HPV HIGH RISK INTERP (test code = 89979) NEGATIVE NEGATIVE HPV 16 (test code = 23214) NEGATIVE HPV 18 (test code = 98698) NEGATIVE HPV, HR, OTHER GENOTYPES (test code = 84759) NEGATIVE Testing methodol ogy is real-time PCR [...] error. UNLESS OTHERWISE INDICATED, ALL TESTING PERFORMED [facility], [facility]. [address] [place] [address] DERRICK BOAT CAPTAIN: TERRI MCCRARY M.D. CLIA NUMBER [id number] [facility] [place]. [id number] PAP TEST, THINPREP, [id number] 00:00:00* Test Item Value Reference Range Interpretation Comme nts SOURCE: (test code = 8001) Cervical SLIDES: (test code = 8011) 1 LMP: (test code = 8021) NOT GIVEN SPECIMEN ADEQUACY: (test code = 75549) (NOTE) INTERPRETATION: (test code = 24537) NILM/NO EPITH. ABNORMALITY;SEE BELOW QUALITY CONTROL OPERATOR: (test code = 8101) Devora Menezes CT (ASCP) LOCATION: (test code = 56810) (NOTE) CPT: (test code = 8140) (NOTE) Azam Vallejo AustinHPV HIGH RISK WITH GENOTYPE, [id number] 00:00:00* Test Item Value Reference Range Interpretation Comme nts HPV HIGH RISK INTERP (test c ode = 20706) NEGATIVE HPV 16 (test code = 02872) NEGATIVE HPV 18 (test code = 20155) NEGATIVE HPV, HR, OTHER GENOTYPES (te st code = 32476) NEGATIVE Azam RaphaelPAP TEST, THINPREP, [id number] 00:00:00* Test Item Value Reference Range Interpretation Comme nts SOURCE: (test code = 8001) Cervical SLIDES: (test code = 8011) 1 LMP: (test code = 8021) NOT GIVEN SPECIMEN ADEQUACY: (test code = 84972) (NOTE) INTERPRETATION: (test code = 29053) NILM/NO EPITH. ABNORMALITY;SEE BELOW QUALITY CONTROL OPERATOR: (test code = 8101) HAYLIE Beach (ASCP) LOCATION: (test code = 58693) (NOTE) CPT: (test code = 8140) (NOTE) Azam RaphaelHPV HIGH RISK WITH GENOTYPE, [id number] 00:00:00* Test Item Value Reference Range Interpretation Comme nts HPV HIGH RISK INTERP (test c ode = 24455) NEGATIVE HPV 16 (test code = 45231) NEGATIVE HPV 18 (test code = 76141) NEGATIVE HPV, HR, OTHER GENOTYPES (te st code = 89021) NEGATIVE Azam RaphaelCT/NG, NAAT, [id number] 17:17:22* Test Item Value Reference Range Interpretation Comme nts CHLAMYDIA, NAAT, THINPREP (test code = 61978) NEGATIVE NEGATIVE A negative resul t does not exclude low level infection, specimensampling error, or collection error. Testing is performed with the [employer] 6800/8800 systems usingreal-time Polymerase Chain Reaction (PCR) method. GONORRHEA, NAAT, THINPREP (test code = 13689) NEGATIVE NEGATIVE A negative resul t does not exclude low level infection, specimensampling error, or collection error. Testing is performed with the [employer] 6800/8800 systems usingreal-time Polymerase Chain Reaction (PCR) method. GC AND CHLAMYDIA AMPLIFIED, [id number] 00:00:00* Test Item Value Reference Range Interpretation Comme nts CHLAMYDIA, NAAT, THINPREP (t est code = 34944) NEGATIVE GONORRHEA, NAAT, THINPREP (t est code = 86720) NEGATIVE Azam F DonavonGC AND CHLAMYDIA AMPLIFIED, [id number] 00:00:00* Test Item Value Reference Range Interpretation Comme nts CHLAMYDIA, NAAT, THINPREP (t est code = 69101) NEGATIVE GONORRHEA, NAAT, THINPREP (t est code = 22438) NEGATIVE Azam F AustinVAGINAL PATHOGENS DNA [id number] 12:33:41* Test Item Value Reference Range Interpretation Comme nts DWIGHT SPECIES (test code = 32037) NEGATIVE NEGATIVE G. VAGINALIS (test code = 26973) POSITIVE NEGATIVE A T. VAGINALIS (test code = 59692) NEGATIVE NEGATIVE Note: The [employer] VPIII Microbial Identification Testis a DNA probe test intended for use in the detectionand identification of Dwight species, Gardnerellavaginalis and Trichomonas vaginalis nucleic acid. HIV 1/2 4TH GEN, RFLX [id number] 03:14:00* Test Item Value Reference Range Interpretation Comme nts HIV 1/2 4TH GEN, RFLX CONF ( test code = 3514) NON-REACTIVE NON-REACTIVE HEPATITIS PANEL, [id number] 03:14:00* Test Item Value Reference Range Interpretation Comme nts HEPATITIS A IgM (test code = 81333) NON-REACTIVE NON-REACTIVE HEPATITIS B CORE IgM (test code = 4644) NON-REACTIVE NON-REACTIVE HEPATITIS B SURF AG (test code = 2739) NON-REACTIVE NON-REACTIVE HEPATITIS C ANTIBODY (test code = 4675) NON-REACTIVE NON-REACTIVE INTERPRETATION HEPATITIS A: (test code = 2552) (NOTE) Hepatitis A sero logy shows no evidence of acute hepatitis A. INTERPRETATION HEPATITIS B: (test code = 03219) (NOTE) Hepatitis B sero logy shows no evidence of acute hepatitis B andno indication of exposure to hepatitis B virus in the previous kiko eight months. INTERPRETATION HEPATITIS C: (test code = 52666) (NOTE) Hepatitis C sero logy shows no evidence of exposure to hepatitisC virus at this time. It can take up to 12 months after exposure tothe hepatitis C virus for antibodies to become detectable in the blood in certain patients. UNLESS OTHERWISE INDICATED, ALL TESTING PERFORMED [facility] [address] [place] [address] DERRICK BOAT CAPTAIN: TERRI MCCRARY M.D. [place] NUMBER [id number] [facility] [place]. [id number] 02:43:33* Test Item Value Reference Range Interpretation Comme nts RPR RESULT (test code = 3501) NON-REACTIVE NON-REACTIVE RPR TITER (test code = 3500) NOT INDIC. TITER NOT INDIC. VAGINAL PATHOGENS DNA [id number] 00:00:00* Test Item Value Reference Range Interpretation Comme nts DWIGHT SPECIES (test code = ) NEGATIVE G. VAGINALIS (test code = 55973) POSITIVE T. VAGINALIS (test code = 39715) NEGATIVE Azam Vallejo [id number] 00:00:00* Test Item Value Reference Range Interpretation Comme nts RPR RESULT (test code = 3501) NON-REACTIVE RPR TITER (test code = 3500) NOT INDIC. TITER Azam RaphaelACUTE HEPATITIS [id number] 00:00:00* Test Item Value Reference Range Interpretation Comme nts HEPATITIS A IgM (test code = 48585) NON-REACTIVE HEPATITIS B CORE IgM (test c ode = 4644) NON-REACTIVE HEPATITIS B SURF AG (test co de = 2739) NON-REACTIVE HEPATITIS C ANTIBODY (test c ode = 4675) NON-REACTIVE INTERPRETATION HEPATITIS A: (test code = 2552) (NOTE) INTERPRETATION HEPATITIS B: (test code = 00221) (NOTE) INTERPRETATION HEPATITIS C: (test code = 74419) (NOTE) Azam Vallejo AustinHIV 1/2 4TH GEN, RFLX [id number] 00:00:00* Test Item Value Reference Range Interpretation Comme nts HIV 1/2 4TH GEN, RFLX CONF ( test code = 3514) NON-REACTIVE Azam RaphaelVAGINAL PATHOGENS DNA [id number] 00:00:00* Test Item Value Reference Range Interpretation Comme nts DWIGHT SPECIES (test code = ) NEGATIVE G. VAGINALIS (test code = 41223) POSITIVE T. VAGINALIS (test code = 58353) NEGATIVE Azam [id number] 00:00:00* Test Item Value Reference Range Interpretation Comme nts RPR RESULT (test code = 3501) NON-REACTIVE RPR TITER (test code = 3500) NOT INDIC. TITER Azam RaphaelACUTE HEPATITIS [id number] 00:00:00* Test Item Value Reference Range Interpretation Comme nts HEPATITIS A IgM (test code = 97302) NON-REACTIVE HEPATITIS B CORE IgM (test c ode = 4644) NON-REACTIVE HEPATITIS B SURF AG (test co de = 2739) NON-REACTIVE HEPATITIS C ANTIBODY (test c ode = 4675) NON-REACTIVE INTERPRETATION HEPATITIS A: (test code = 2552) (NOTE) INTERPRETATION HEPATITIS B: (test code = 76760) (NOTE) INTERPRETATION HEPATITIS C: (test code = 43334) (NOTE) Azam RaphaelHIV 1/2 4TH GEN, RFLX [id number] 00:00:00* Test Item Value Reference Range Interpretation Comme nts HIV 1/2 4TH GEN, RFLX CONF ( test code = 3514) NON-REACTIVE Azam RaphaelCOMP. METABOLIC PANEL (83650)[id number] 19:42:47* Test Item Value Reference Range Interpretation Comme nts NA (test code = 1001472677) 138 mmol/L 135-145 K (test code = 9300063085) 4.8 mmol/L 3.5-5.0 CL (test code = 2487037938) 102 mmol/L 98-108 CO2 TOTAL (test code = 1775049780) 25 mmol/L 23-31 AGAP (test code = 4912990806) 2-16 BUN (test code = 1886643570) 15 mg/dL 7-23 GLUCOSE (test code = 8333446963) 90 mg/dL 70-110 CREATININE (test code = 7264187674) 0.64 mg/dL 0.50-1.04 TOTAL BILI (test code = 3529834071) 0.8 mg/dL 0.1-1.1 CALCIUM (test code = 6692688485) 9.9 mg/dL 8.6-10.6 T PROTEIN (test code = 7669090840) 7.8 g/dL 6.3-8.2 ALBUMIN (test code = 9421359705) 5.0 g/dL 3.5-5.0 ALK PHOS (test code = 3372994861) 84 U/L 34-122 ALTv (test code = 1742-6) 14 U/L 5-35 AST(SGOT) (test code = 0302086782) 23 U/L 13-40 eGFR (test code = 8802878672) mL/min/1.73m2 [place] (test code = [place]) Association [...] or urine or abnormalities in imaging tests). [facility] WITH [id number] 19:29:29* Test Item Value Reference Range Interpretation Comme nts WBC (test code = 6690-2) See_Comment [Automated [employer]] The system which generated this result transmitted reference range: 4.30 - 11.10 10*3/?L. The reference range was not used to interpret this result as normal/abnormal. RBC (test code = 789-8) See_Comment [Automated [employer]] The system which generated this result [...] 34.0 g/dL 31.6-35.1 RDW-SD (test code = 91688-2) 42.0 fL 39.0-49.9 RDW-CV (test code = 788-0) 12.1 % 12.0-15.5 PLT (test code = 777-3) See_Comment [Automated [employer]] The system which generated this result transmitted reference range: 166 - 358 10*3/?L. The reference range was not used to interpret this result as normal/abnormal. MPV (test code = 38643-6) 10.0 fL 9.5-12.9 NRBC/100 WBC (test code = 9941213493) See_Comment [Automated dateIITians ssage] The system which generated this result transmitted reference range: 0.0 - 10.0 /100 WBCs. The reference range was not used to interpret this result as normal/abnormal. NRBC x10^3 (test code = [id number]) <0.01 See_Comment [Automated [employer]] The system which generated this result transmitted reference range: 10*3/?L. The reference range was not used to interpret this result as normal/abnormal. GRAN MAT (NEUT) % (test code = 770-8) 65.5 % IMM GRAN % (test code = [id number]) 0.40 % LYMPH % (test code = 736-9) 20.6 % MONO % (test code = 5905-5) 10.5 % EOS % (test code = 713-8) 2.1 % BASO % (test code = 706-2) 0.9 % GRAN MAT x10^3(ANC) (test code = [id number]) 5.61 10*3/uL 1.88-7.09 IMM GRAN x10^3 (test code = [id number]) 0.03 10*3/uL 0.00-0.06 LYMPH x10^3 (test code = 731-0) 1.76 10*3/uL 1.32-3.29 MONO x10^3 (test code = 742-7) 0.90 10*3/uL 0.33-0.92 EOS x10^3 (test code = 711-2) 0.18 10*3/uL 0.03-0.39 BASO x10^3 (test code = 704-7) 0.08 10*3/uL 0.01-0.07 H Lab Interpretation (test code = 74446-0) [facility]normal [id number] 18:47:00* Test Item Value Reference Range Interpretation Comme nts POCT PREG (test code = 1605) Negative On board controls acceptable with C Line (test code = 3574) Present POCT PREG LOT # (test code = 3575) [id number] POCT PREG TEST DATE ( test code = 3576) 02-24-2023 Lab Interpretation (test cod e = 36387-7) Normal [facility] [id number] 11:20:57* Test Item Value Reference Range Interpretation [...] previously r eported abnormal Pap (accession # [id number]) isreviewed. The atypical cells identified on the [...] TanNUMBER OF TISSUE PIECES: multipleSUBMITTED IN CASSETTE(S): [id number]: FormalinCOMMENTS:Filtered and entirely submitted. B) SPECIMEN LABELED: Cervix, 3 o'clockSIZE/WEIGHT: 0.3x0.2x0.1 cm AggregateSPECIMEN COLOR: TanNUMBER OF TISSUE PIECES: multipleSUBMITTED IN CASSETTE(S): [id number]: FormalinCOMMENTS:Entirely submitted intact. C) SPECIMEN LABELED: Cervix, 6 o'clockSIZE/WEIGHT: 0.3x0.2x0.1 cm SPECIMEN COLOR: TanNUMBER OF TISSUE PIECES: 1SUBMITTED IN CASSETTE(S): [id number]: FormalinCOMMENTS:Entirely submitted intact. D) SPECIMEN LABELED: Cervix, 9 o'clockSIZE/WEIGHT: 0.3x0.2x0.1 cm SPECIMEN COLOR: TanNUMBER OF TISSUE PIECES: 1SUBMITTED IN CASSETTE(S): [id number]: FormalinCOMMENTS:Entirely submitted intact. E) SPECIMEN LABELED: Cervix, 11 o'clockSIZE/WEIGHT: 0.4x0.3x0.3 cm SPECIMEN COLOR: TanNUMBER OF TISSUE PIECES: 1SUBMITTED IN CASSETTE(S): [id number]: FormalinCOMMENTS:Entirely submitted intact. PATHOLOGIST: (test code = 8250) (NOTE) Charisma Powers angelia Specimens processed at [facility], [address] [place] [address], , CLIA: [id number] interpreted at [facility], [address] [place] [address], , CLIA: [id number] DISCLAIMER (test code = 92163) (NOTE) IHC antibodies a re interpreted in the presence of appropriatelyfunctioning controls unless otherwise noted. CPT: (test code = 8400) (NOTE) [id number], [id number] UNLESS OTHERWISE INDICATED, ALL TESTING PERFORMED [facility]OLOGY [employer] [address] [place] [address] DERRICK BOAT CAPTAIN: TERRI MCCRARY M.D. CLIA NUMBER [id number] [facility] [place] [place]. [id number] SURGICAL PATHOLOGY [id number] 00:00:00* Test Item Value Reference Range Interpretation Comme nts DIAGNOSIS: (test code = 8200) (NOTE) COMMENTS: (test code = 8205) (NOTE) MICROSCOPIC DESCRIPTION: (te st code = 8210) (NOTE) CLINICAL DATA: (test code = 8401) (NOTE) GROSS DESCRIPTION: (test code = 8220) (NOTE) PATHOLOGIST: (test code = 8250) (NOTE) DISCLAIMER (test code = 93737) (NOTE) CPT: (test code = 8400) (NOTE) Azam Vallejo AustinSURGICAL PATHOLOGY [id number] 00:00:00* Test Item Value Reference Range Interpretation Comme nts DIAGNOSIS: (test code = 8200) (NOTE) COMMENTS: (test code = 8205) (NOTE) MICROSCOPIC DESCRIPTION: (te st code = 8210) (NOTE) CLINICAL DATA: (test code = 8401) (NOTE) GROSS DESCRIPTION: (test code = 8220) (NOTE) PATHOLOGIST: (test code = 8250) (NOTE) DISCLAIMER (test code = 90527) (NOTE) CPT: (test code = 8400) (NOTE) Azam Vallejo AustinSURGICAL PATHOLOGY [id number] 00:00:00* Test Item Value Reference Range Interpretation Comme nts DIAGNOSIS: (test code = 8200) (NOTE) COMMENTS: (test code = 8205) (NOTE) MICROSCOPIC DESCRIPTION: (te st code = 8210) (NOTE) CLINICAL DATA: (test code = 8401) (NOTE) GROSS DESCRIPTION: (test code = 8220) (NOTE) PATHOLOGIST: (test code = 8250) (NOTE) DISCLAIMER (test code = 04632) (NOTE) CPT: (test code = 8400) (NOTE) SURGICAL PATHOLOGY [id number] 00:00:00* Test Item Value Reference Range Interpretation Comme nts DIAGNOSIS: (test code = 8200) (NOTE) COMMENTS: (test code = 8205) (NOTE) MICROSCOPIC DESCRIPTION: (te st code = 8210) (NOTE) CLINICAL DATA: (test code = 8401) (NOTE) GROSS DESCRIPTION: (test code = 8220) (NOTE) PATHOLOGIST: (test code = 8250) (NOTE) DISCLAIMER (test code = 83255) (NOTE) CPT: (test code = 8400) (NOTE) SURGICAL PATHOLOGY [id number] 00:00:00* Test Item Value Reference Range Interpretation Comme nts DIAGNOSIS: (test code = 8200) (NOTE) COMMENTS: (test code = 8205) (NOTE) MICROSCOPIC DESCRIPTION: (te st code = 8210) (NOTE) CLINICAL DATA: (test code = 8401) (NOTE) GROSS DESCRIPTION: (test code = 8220) (NOTE) PATHOLOGIST: (test code = 8250) (NOTE) DISCLAIMER (test code = 40659) (NOTE) CPT: (test code = 8400) (NOTE) SURGICAL PATHOLOGY [id number] 00:00:00* Test Item Value Reference Range Interpretation Comme nts DIAGNOSIS: (test code = 8200) (NOTE) COMMENTS: (test code = 8205) (NOTE) MICROSCOPIC DESCRIPTION: (te st code = 8210) (NOTE) CLINICAL DATA: (test code = 8401) (NOTE) GROSS DESCRIPTION: (test code = 8220) (NOTE) PATHOLOGIST: (test code = 8250) (NOTE) DISCLAIMER (test code = 75078) (NOTE) CPT: (test code = 8400) (NOTE) SURGICAL PATHOLOGY [id number] 00:00:00* Test Item Value Reference Range Interpretation Comme nts DIAGNOSIS: (test code = 8200) (NOTE) COMMENTS: (test code = 8205) (NOTE) MICROSCOPIC DESCRIPTION: (te st code = 8210) (NOTE) CLINICAL DATA: (test code = 8401) (NOTE) GROSS DESCRIPTION: (test code = 8220) (NOTE) PATHOLOGIST: (test code = 8250) (NOTE) DISCLAIMER (test code = 70389) (NOTE) CPT: (test code = 8400) (NOTE) PAP TEST, THINPREP, [id number] 11:12:17* Test Item Value Reference Range Interpretation Comme nts SOURCE: (test code = 8001) Cervical/Endo cervical SLIDES: (test code = 8011) 1 LMP: (test code = 8021) 08/05/2021 SPECIMEN ADEQUACY: (test code = 87752) (NOTE) Satisfactory for evaluation. Endocervical cells/transformation zone component present. INTERPRETATION: (test code = 66091) ASCUS/EPITH. ABNORMALITY; SEE BELOW A -- ---- EPITHELIAL CELL ABNORMALITY Atypical squamous cells of undetermined significance (ASC-US) OTHER COMMENTS: (test code = 8081) (NOTE) Possible celis ges of Herpes virus present. Recommend PCR orculture for confirmation. PCR may be performed on this samplewithin 21 days of collection. Please contact [facility] Customer Serviceat [phone]. QUALITY CONTROL OPERATOR: (test code = 8101) HAYLIE Anderson(ASC P) PATHOLOGIST INTERPRETATION BY: (test code = 8122) Dylan Holland LOCATION: (test code = 91893) (NOTE) Specimens proces sed at [facility], [address] [place] [address], , CLIA: [id number] interpreted at [facility], [address] [address], , CLIA: [id number] CPT: (test code = 8140) (NOTE) 51439, 62812 UNL ESS OTHERWISE INDICATED, COMPUTER AIDED AND QUALITY CONTROL OPERATOR SCREENING PERFORMED. The Pap test is a screening test with an inherent, but low probability of error. Your patient should be reminded to consult you immediately if she experiences any suspicious signs or symptoms, regardless of her Pap test result. An alternate report format containing images or consolidated prior Pap history is available as applicable. PAP TEST, THINPREP, [id number] 00:00:00* Test Item Value Reference Range Interpretation Comme nts SOURCE: (test code = 8001) Cervical/Endo cervic al SLIDES: (test code = 8011) 1 LMP: (test code = 8021) 08/05/2021 SPECIMEN ADEQUACY: (test code = 06145) (NOTE) INTERPRETATION: (test code = 37916) ASCUS/EPITH. ABNORMALITY; SEE BELOW OTHER COMMENTS: (test code = 8081) (NOTE) QUALITY CONTROL OPERATOR: (test code = 8101) HAYLIE Anderson(ASCP) PATHOLOGIST INTERPRETATION BY: (test code = 8122) Dylan Holland LOCATION: (test code = 94023) (NOTE) CPT: (test code = 8140) (NOTE) Azam Yoni DonavonPAP TEST, THINPREP, [id number] 00:00:00* Test Item Value Reference Range Interpretation Comme nts SOURCE: (test code = 8001) Cervical/Endo cervic al SLIDES: (test code = 8011) 1 LMP: (test code = 8021) 08/05/2021 SPECIMEN ADEQUACY: (test code = 56398) (NOTE) INTERPRETATION: (test code = 41432) ASCUS/EPITH. ABNORMALITY; SEE BELOW OTHER COMMENTS: (test code = 8081) (NOTE) QUALITY CONTROL OPERATOR: (test code = 8101) HAYLIE Anderson(ASCP) PATHOLOGIST INTERPRETATION BY: (test code = 8122) Dylan Holland LOCATION: (test code = 46380) (NOTE) CPT: (test code = 8140) (NOTE) Azam Vallejo AustinPAP TEST, THINPREP, [id number] 00:00:00* Test Item Value Reference Range Interpretation Comme nts SOURCE: (test code = 8001) Cervical/Endo cervic al SLIDES: (test code = 8011) 1 LMP: (test code = 8021) 08/05/2021 SPECIMEN ADEQUACY: (test code = 08804) (NOTE) INTERPRETATION: (test code = 41993) ASCUS/EPITH. ABNORMALITY; SEE BELOW OTHER COMMENTS: (test code = 8081) (NOTE) QUALITY CONTROL OPERATOR: (test code = 8101) HAYLIE Anderson(ASCP) PATHOLOGIST INTERPRETATION BY: (test code = 8122) Dylan oHlland LOCATION: (test code = 44262) (NOTE) CPT: (test code = 8140) (NOTE) PAP TEST, THINPREP, [id number] 00:00:00* Test Item Value Reference Range Interpretation Comme nts SOURCE: (test code = 8001) Cervical/Endo cervic al SLIDES: (test code = 8011) 1 LMP: (test code = 8021) 08/05/2021 SPECIMEN ADEQUACY: (test code = 86396) (NOTE) INTERPRETATION: (test code = 70608) ASCUS/EPITH. ABNORMALITY; SEE BELOW OTHER COMMENTS: (test code = 8081) (NOTE) QUALITY CONTROL OPERATOR: (test code = 8101) HAYLIE Anderson(ASCP) PATHOLOGIST INTERPRETATION BY: (test code = 8122) Dylan Holland LOCATION: (test code = 32709) (NOTE) CPT: (test code = 8140) (NOTE) PAP TEST, THINPREP, [id number] 00:00:00* Test Item Value Reference Range Interpretation Comme nts SOURCE: (test code = 8001) Cervical/Endo cervic al SLIDES: (test code = 8011) 1 LMP: (test code = 8021) 08/05/2021 SPECIMEN ADEQUACY: (test code = 65195) (NOTE) INTERPRETATION: (test code = 96563) ASCUS/EPITH. ABNORMALITY; SEE BELOW OTHER COMMENTS: (test code = 8081) (NOTE) QUALITY CONTROL OPERATOR: (test code = 8101) HAYLIE Anderson(ASCP) PATHOLOGIST INTERPRETATION BY: (test code = 8122) Dylan Holland LOCATION: (test code = 73478) (NOTE) CPT: (test code = 8140) (NOTE) PAP TEST, THINPREP, [id number] 00:00:00* Test Item Value Reference Range Interpretation Comme nts SOURCE: (test code = 8001) Cervical/Endo cervic al SLIDES: (test code = 8011) 1 LMP: (test code = 8021) 08/05/2021 SPECIMEN ADEQUACY: (test code = 38791) (NOTE) INTERPRETATION: (test code = 58414) ASCUS/EPITH. ABNORMALITY; SEE BELOW OTHER COMMENTS: (test code = 8081) (NOTE) QUALITY CONTROL OPERATOR: (test code = 8101) HAYLIE Anderson(ASCP) PATHOLOGIST INTERPRETATION BY: (test code = 8122) Dylan Holland LOCATION: (test code = 54526) (NOTE) CPT: (test code = 8140) (NOTE) PAP TEST, THINPREP, [id number] 00:00:00* Test Item Value Reference Range Interpretation Comme nts SOURCE: (test code = 8001) Cervical/Endo cervic al SLIDES: (test code = 8011) 1 LMP: (test code = 8021) 08/05/2021 SPECIMEN ADEQUACY: (test code = 35914) (NOTE) INTERPRETATION: (test code = 50428) ASCUS/EPITH. ABNORMALITY; SEE BELOW OTHER COMMENTS: (test code = 8081) (NOTE) QUALITY CONTROL OPERATOR: (test code = 8101) HAYLIE Anderson(ASCP) PATHOLOGIST INTERPRETATION BY: (test code = 8122) Dylan Holland LOCATION: (test code = 32740) (NOTE) CPT: (test code = 8140) (NOTE) CT/NG, TMA, [id number] 19:19:14* Test Item Value Reference Range Interpretation Comme nts GONORRHEA, TMA (test code = 29159) NEGATIVE NEGATIVE Assay methodolog y is nucleic acid amplification by pocket secretary assembler mediated amplification (TMA) utilizing the Aptima Combo 2 Assay. CHLAMYDIA, TMA (test code = 38203) NEGATIVE NEGATIVE Assay methodolog y is nucleic acid amplification by pocket secretary assembler mediated amplification (TMA) utilizing the Aptima Combo 2 Assay. HPV HIGH RISK WITH GENOTYPE, [id number] 16:29:18* Test Item Value Reference Range Interpretation Comme nts HPV HIGH RISK INTERP (test code = 49920) POSITIVE NEGATIVE A HPV 16 (test code = 58588) NEGATIVE HPV 18 (test code = 07873) NEGATIVE HPV, HR, OTHER GENOTYPES (test code = 89983) POSITIVE A Testing methodol ogy is real-time [...] error. UNLESS OTHERWISE INDICATED, ALL TESTING PERFORMED [facility] [employer] [address] [place] [address] DERRICK BOAT CAPTAIN: TERRI MCCRARY M.D. CLIA NUMBER [id number] [place]. [id number] VAGINAL PATHOGENS DNA [id number] 14:49:20* Test Item Value Reference Range Interpretation Comme nts DWIGHT SPECIES (test code = 33351) NEGATIVE NEGATIVE G. VAGINALIS (test code = 96262) POSITIVE NEGATIVE A T. VAGINALIS (test code = 88688) NEGATIVE NEGATIVE UNLESS OTHERWISE INDICATED, ALL TESTING PERFORMED [facility], [facility]. [address] [place], [place] [address] DERRICK BOAT CAPTAIN: TERRI MCCRARY M.D. CLIA NUMBER [id number] [place]. [id number] HIV 1/2 4TH GEN, RFLX [id number] 05:59:23* Test Item Value Reference Range Interpretation Comme nts HIV 1/2 4TH GEN, RFLX CONF ( test code = 3514) NON-REACTIVE NON-REACTIVE HEPATITIS PANEL, [id number] 05:59:23* Test Item Value Reference Range Interpretation Comme nts HEPATITIS A IgM (test code = 94442) NON-REACTIVE NON-REACTIVE HEPATITIS B CORE IgM (test code = 4644) NON-REACTIVE NON-REACTIVE HEPATITIS B SURF AG (test code = 2739) NON-REACTIVE NON-REACTIVE HEPATITIS C ANTIBODY (test code = 4675) NON-REACTIVE NON-REACTIVE INTERPRETATION HEPATITIS A: (test code = 2552) (NOTE) Hepatitis A serology shows no evidence of acute hepatitis A. INTERPRETATION HEPATITIS B: (test code = 36578) (NOTE) Hepatitis B serology shows no evidence of acute hepatitis B andno indication of exposure to hepatitis B virus in the previous kiko eight months. INTERPRETATION HEPATITIS C: (test code = 53254) (NOTE) Hepatitis C serology shows no evidence of exposure to hepatitisC virus at this time. It can take up to 12 months after exposure tothe hepatitis C virus for antibodies to become detectable in the blood in certain patients. [id number] 05:28:14* Test Item Value Reference Range Interpretation Comme nts RPR RESULT (test code = 3501) NON-REACTIVE NON-REACTIVE RPR TITER (test code = 3500) NOT INDIC. TITER NOT INDIC. ACUTE HEPATITIS [id number] 00:00:00* Test Item Value Reference Range Interpretation Comme nts HEPATITIS A IgM (test code = 48377) NON-REACTIVE HEPATITIS B CORE IgM (test c ode = 4644) NON-REACTIVE HEPATITIS B SURF AG (test co de = 2739) NON-REACTIVE HEPATITIS C ANTIBODY (test c ode = 4675) NON-REACTIVE INTERPRETATION HEPATITIS A: (test code = 2552) (NOTE) INTERPRETATION HEPATITIS B: (test code = 11710) (NOTE) INTERPRETATION HEPATITIS C: (test code = 95167) (NOTE) Azam Yoni [id number] 00:00:00* Test Item Value Reference Range Interpretation Comme nts RPR RESULT (test code = 3501) NON-REACTIVE RPR TITER (test code = 3500) NOT INDIC. TITER Azam Yoni DonavonHPV HIGH RISK WITH GENOTYPE, [id number] 00:00:00* Test Item Value Reference Range Interpretation Comme nts HPV HIGH RISK INTERP (test c ode = 01397) POSITIVE HPV 16 (test code = 95820) NEGATIVE HPV 18 (test code = 26051) NEGATIVE HPV, HR, OTHER GENOTYPES (te st code = 79356) POSITIVE Azam RaphaelVAGINAL PATHOGENS DNA PANEL [ADDED]2021-08-16 00:00:00* Test Item Value Reference Range Interpretation Comme nts DWIGHT SPECIES (test code = ) NEGATIVE G. VAGINALIS (test code = ) POSITIVE T. VAGINALIS (test code = ) NEGATIVE Azam RaphaelHIV AB/AG COMBO RFLX [id number] 00:00:00* Test Item Value Reference Range Interpretation Comme nts HIV 1/2 4TH GEN, RFLX CONF ( test code = 3514) NON-REACTIVE Azam RaphaelGC AND CHLAMYDIA AMPLIFIED, [id number] 00:00:00* Test Item Value Reference Range Interpretation Comme nts GONORRHEA, TMA (test code = 16563) NEGATIVE CHLAMYDIA, TMA (test code = 65172) NEGATIVE Azam RaphaelACUTE HEPATITIS [id number] 00:00:00* Test Item Value Reference Range Interpretation Comme nts HEPATITIS A IgM (test code = 41048) NON-REACTIVE HEPATITIS B CORE IgM (test c ode = 4644) NON-REACTIVE HEPATITIS B SURF AG (test co de = 2739) NON-REACTIVE HEPATITIS C ANTIBODY (test c ode = 4675) NON-REACTIVE INTERPRETATION HEPATITIS A: (test code = 2552) (NOTE) INTERPRETATION HEPATITIS B: (test code = 74948) (NOTE) INTERPRETATION HEPATITIS C: (test code = 36203) (NOTE) Azam [id number] 00:00:00* Test Item Value Reference Range Interpretation Comme nts RPR RESULT (test code = 3501) NON-REACTIVE RPR TITER (test code = 3500) NOT INDIC. TITER Azam RaphaelHPV HIGH RISK WITH GENOTYPE, [id number] 00:00:00* Test Item Value Reference Range Interpretation Comme nts HPV HIGH RISK INTERP (test c ode = 12204) POSITIVE HPV 16 (test code = 76619) NEGATIVE HPV 18 (test code = 65050) NEGATIVE HPV, HR, OTHER GENOTYPES (te st code = 24244) POSITIVE Azam RaphaelVAGINAL PATHOGENS DNA PANEL [ADDED]2021-08-16 00:00:00* Test Item Value Reference Range Interpretation Comme nts DWIGHT SPECIES (test code = 74485) NEGATIVE G. VAGINALIS (test code = ) POSITIVE T. VAGINALIS (test code = 39231) NEGATIVE Azam Vallejo AustinGC AND CHLAMYDIA AMPLIFIED, [id number] 00:00:00* Test Item Value Reference Range Interpretation Comme nts GONORRHEA, TMA (test code = 12044) NEGATIVE CHLAMYDIA, TMA (test code = 99333) NEGATIVE Azam Vallejo AustinHIV AB/AG COMBO RFLX [id number] 00:00:00* Test Item Value Reference Range Interpretation Comme nts HIV 1/2 4TH GEN, RFLX CONF ( test code = 3514) NON-REACTIVE GC AND CHLAMYDIA AMPLIFIED, [id number] 00:00:00* Test Item Value Reference Range Interpretation Comme nts GONORRHEA, TMA (test code = 52157) NEGATIVE CHLAMYDIA, TMA (test code = 18132) NEGATIVE ACUTE HEPATITIS [id number] 00:00:00* Test Item Value Reference Range Interpretation Comme nts HEPATITIS A IgM (test code = 06395) NON-REACTIVE HEPATITIS B CORE IgM (test c ode = 4644) NON-REACTIVE HEPATITIS B SURF AG (test co de = 2739) NON-REACTIVE HEPATITIS C ANTIBODY (test c ode = 4675) NON-REACTIVE INTERPRETATION HEPATITIS A: (test code = 2552) (NOTE) INTERPRETATION HEPATITIS B: (test code = 40008) (NOTE) INTERPRETATION HEPATITIS C: (test code = 76336) (NOTE) HPV HIGH RISK WITH GENOTYPE, [id number] 00:00:00* Test Item Value Reference Range Interpretation Comme nts HPV HIGH RISK INTERP (test c ode = 39624) POSITIVE HPV 16 (test code = 38270) NEGATIVE HPV 18 (test code = 41424) NEGATIVE HPV, HR, OTHER GENOTYPES (te st code = 80088) POSITIVE [id number] 00:00:00* Test Item Value Reference Range Interpretation Comme nts RPR RESULT (test code = 3501) NON-REACTIVE RPR TITER (test code = 3500) NOT INDIC. TITER [id number] 00:00:00* Test Item Value Reference Range Interpretation Comme nts RPR RESULT (test code = 3501) NON-REACTIVE RPR TITER (test code = 3500) NOT INDIC. TITER VAGINAL PATHOGENS DNA PANEL [ADDED]2021-08-16 00:00:00* Test Item Value Reference Range Interpretation Comme nts DWIGHT SPECIES (test code = 59818) NEGATIVE G. VAGINALIS (test code = 16419) POSITIVE T. VAGINALIS (test code = 76523) NEGATIVE HIV AB/AG COMBO RFLX [id number] 00:00:00* Test Item Value Reference Range Interpretation Comme nts HIV 1/2 4TH GEN, RFLX CONF ( test code = 3514) NON-REACTIVE GC AND CHLAMYDIA AMPLIFIED, [id number] 00:00:00* Test Item Value Reference Range Interpretation Comme nts GONORRHEA, TMA (test code = 27205) NEGATIVE CHLAMYDIA, TMA (test code = 14920) NEGATIVE GC AND CHLAMYDIA AMPLIFIED, [id number] 00:00:00* Test Item Value Reference Range Interpretation Comme nts GONORRHEA, TMA (test code = 91498) NEGATIVE CHLAMYDIA, TMA (test code = 35003) NEGATIVE HIV AB/AG COMBO RFLX [id number] 00:00:00* Test Item Value Reference Range Interpretation Comme nts HIV 1/2 4TH GEN, RFLX CONF ( test code = 3514) NON-REACTIVE ACUTE HEPATITIS [id number] 00:00:00* Test Item Value Reference Range Interpretation Comme nts HEPATITIS A IgM (test code = 29491) NON-REACTIVE HEPATITIS B CORE IgM (test c ode = 4644) NON-REACTIVE HEPATITIS B SURF AG (test co de = 2739) NON-REACTIVE HEPATITIS C ANTIBODY (test c ode = 4675) NON-REACTIVE INTERPRETATION HEPATITIS A: (test code = 2552) (NOTE) INTERPRETATION HEPATITIS B: (test code = 96625) (NOTE) INTERPRETATION HEPATITIS C: (test code = 19778) (NOTE) ACUTE HEPATITIS [id number] 00:00:00* Test Item Value Reference Range Interpretation Comme nts HEPATITIS A IgM (test code = 02407) NON-REACTIVE HEPATITIS B CORE IgM (test c ode = 4644) NON-REACTIVE HEPATITIS B SURF AG (test co de = 2739) NON-REACTIVE HEPATITIS C ANTIBODY (test c ode = 4675) NON-REACTIVE INTERPRETATION HEPATITIS A: (test code = 2552) (NOTE) INTERPRETATION HEPATITIS B: (test code = 00006) (NOTE) INTERPRETATION HEPATITIS C: (test code = 50502) (NOTE) [id number] 00:00:00* Test Item Value Reference Range Interpretation Comme nts RPR RESULT (test code = 3501) NON-REACTIVE RPR TITER (test code = 3500) NOT INDIC. TITER HPV HIGH RISK WITH GENOTYPE, [id number] 00:00:00* Test Item Value Reference Range Interpretation Comme nts HPV HIGH RISK INTERP (test c ode = 36235) POSITIVE HPV 16 (test code = 37994) NEGATIVE HPV 18 (test code = 05242) NEGATIVE HPV, HR, OTHER GENOTYPES (te st code = 09709) POSITIVE HPV HIGH RISK WITH GENOTYPE, [id number] 00:00:00* Test Item Value Reference Range Interpretation Comme nts HPV HIGH RISK INTERP (test c ode = 40453) POSITIVE HPV 16 (test code = 24091) NEGATIVE HPV 18 (test code = 48175) NEGATIVE HPV, HR, OTHER GENOTYPES (te st code = 69670) POSITIVE [id number] 00:00:00* Test Item Value Reference Range Interpretation Comme nts RPR RESULT (test code = 3501) NON-REACTIVE RPR TITER (test code = 3500) NOT INDIC. TITER [id number] 00:00:00* Test Item Value Reference Range Interpretation Comme nts RPR RESULT (test code = 3501) NON-REACTIVE RPR TITER (test code = 3500) NOT INDIC. TITER VAGINAL PATHOGENS DNA PANEL [ADDED]2021-08-16 00:00:00* Test Item Value Reference Range Interpretation Comme nts DWIGHT SPECIES (test code = ) NEGATIVE G. VAGINALIS (test code = 23335) POSITIVE T. VAGINALIS (test code = 44319) NEGATIVE VAGINAL PATHOGENS DNA PANEL [ADDED]2021-08-16 00:00:00* Test Item Value Reference Range Interpretation Comme nts DWIGHT SPECIES (test code = ) NEGATIVE G. VAGINALIS (test code = 76186) POSITIVE T. VAGINALIS (test code = 33660) NEGATIVE HIV AB/AG COMBO RFLX [id number] 00:00:00* Test Item Value Reference Range Interpretation Comme nts HIV 1/2 4TH GEN, RFLX CONF ( test code = 3514) NON-REACTIVE HIV AB/AG COMBO RFLX [id number] 00:00:00* Test Item Value Reference Range Interpretation Comme nts HIV 1/2 4TH GEN, RFLX CONF ( test code = 3514) NON-REACTIVE GC AND CHLAMYDIA AMPLIFIED, [id number] 00:00:00* Test Item Value Reference Range Interpretation Comme nts GONORRHEA, TMA (test code = 60761) NEGATIVE CHLAMYDIA, TMA (test code = 01084) NEGATIVE GC AND CHLAMYDIA AMPLIFIED, [id number] 00:00:00* Test Item Value Reference Range Interpretation Comme nts GONORRHEA, TMA (test code = 16991) NEGATIVE CHLAMYDIA, TMA (test code = 53141) NEGATIVE ACUTE HEPATITIS [id number] 00:00:00* Test Item Value Reference Range Interpretation Comme nts HEPATITIS A IgM (test code = 68242) NON-REACTIVE HEPATITIS B CORE IgM (test c ode = 4644) NON-REACTIVE HEPATITIS B SURF AG (test co de = 2739) NON-REACTIVE HEPATITIS C ANTIBODY (test c ode = 4675) NON-REACTIVE INTERPRETATION HEPATITIS A: (test code = 2552) (NOTE) INTERPRETATION HEPATITIS B: (test code = 37661) (NOTE) INTERPRETATION HEPATITIS C: (test code = 41164) (NOTE) ACUTE HEPATITIS [id number] 00:00:00* Test Item Value Reference Range Interpretation Comme nts HEPATITIS A IgM (test code = 47402) NON-REACTIVE HEPATITIS B CORE IgM (test c ode = 4644) NON-REACTIVE HEPATITIS B SURF AG (test co de = 2739) NON-REACTIVE HEPATITIS C ANTIBODY (test c ode = 4675) NON-REACTIVE INTERPRETATION HEPATITIS A: (test code = 2552) (NOTE) INTERPRETATION HEPATITIS B: (test code = 06238) (NOTE) INTERPRETATION HEPATITIS C: (test code = 50086) (NOTE) [id number] 00:00:00* Test Item Value Reference Range Interpretation Comme nts RPR RESULT (test code = 3501) NON-REACTIVE RPR TITER (test code = 3500) NOT INDIC. TITER [id number] 00:00:00* Test Item Value Reference Range Interpretation Comme nts RPR RESULT (test code = 3501) NON-REACTIVE RPR TITER (test code = 3500) NOT INDIC. TITER HPV HIGH RISK WITH GENOTYPE, [id number] 00:00:00* Test Item Value Reference Range Interpretation Comme nts HPV HIGH RISK INTERP (test c ode = 43639) POSITIVE HPV 16 (test code = 53558) NEGATIVE HPV 18 (test code = 04529) NEGATIVE HPV, HR, OTHER GENOTYPES (te st code = 82882) POSITIVE HPV HIGH RISK WITH GENOTYPE, [id number] 00:00:00* Test Item Value Reference Range Interpretation Comme nts HPV HIGH RISK INTERP (test c ode = 62583) POSITIVE HPV 16 (test code = 92258) NEGATIVE HPV 18 (test code = 28815) NEGATIVE HPV, HR, OTHER GENOTYPES (te st code = 70492) POSITIVE [id number] 00:00:00* Test Item Value Reference Range Interpretation Comme nts RPR RESULT (test code = 3501) NON-REACTIVE RPR TITER (test code = 3500) NOT INDIC. TITER VAGINAL PATHOGENS DNA PANEL [ADDED]2021-08-16 00:00:00* Test Item Value Reference Range Interpretation Comme nts DWIGHT SPECIES (test code = ) NEGATIVE G. VAGINALIS (test code = 48812) POSITIVE T. VAGINALIS (test code = 29284) NEGATIVE VAGINAL PATHOGENS DNA PANEL [ADDED]2021-08-16 00:00:00* Test Item Value Reference Range Interpretation Comme nts DWIGHT SPECIES (test code = ) NEGATIVE G. VAGINALIS (test code = 49325) POSITIVE T. VAGINALIS (test code = 04235) NEGATIVE HIV AB/AG COMBO RFLX [id number] 00:00:00* Test Item Value Reference Range Interpretation Comme nts HIV 1/2 4TH GEN, RFLX CONF ( test code = 3514) NON-REACTIVE [facility] DIFF WITH [id number] 12:09:41* Test Item Value Reference Range Interpretation [...] = 1065) 0.0 /100 WBC'S See_Comment [Automated [employer]] The system which generated this result [...] 0.00-0.10 ABS NUCLEATED RBCS (test code = 81019) 0.00 K/UL 0.00-0.11 TSH, THIRD [id number] 06:48:11* Test Item Value Reference Range Interpretation Comme nts TSH, THIRD GENERATION (test code = 2821) 1.130 UIU/ML 0.400-4.100 UNLESS OTHERWISE INDICATED, ALL TESTING PERFORMED [facility] [address] [place] [id number] [employer] CAPTAIN: TERRI MCCRARY M.D. MARA NUMBER [id number] [facility] [place]. [id number] LIPID [id number] 06:12:16* Test Item Value Reference Range Interpretation [...] SPECIMENS. FOR MOREINFORMATION, SEE CLIENT ANNOUNCEMENT AT [email or web address] /CalcLDL-C RISK RATIO LDL/HDL (test code = 2238) 2.13 RATIO <3.22 COMPREHENSIVE METABOLIC [id number] 06:12:16* Test Item Value Reference Range Interpretation Comme nts GLUCOSE (test code = 2217) 89 MG/DL 70-99 BUN (test code = 2208) 12 MG/DL 6-20 CREATININE (test code = 2214) 0.52 MG/DL 0.60-1.30 L eGFR (2020 CKD-EPI) (test code = 07834) 127 ML/MIN/1.73 >60 CALC BUN/CREAT (test code [...] (test code = 2219) 12 U/L 5-40 LIPID [id number] 00:00:00* Test Item Value Reference Range Interpretation Comme nts CHOLESTEROL (test code = 2210) 192 MG/DL TRIGLYCERIDES (test code = 2232) 78 MG/DL HDL CHOLESTEROL (test code = 2220) 56 MG/DL CALC LDL CHOL (test code = 2237) 119 MG/DL RISK RATIO LDL/HDL (test cod e = 2238) 2.13 RATIO Azam F DonavonCOMPREHENSIVE METABOLIC [id number] 00:00:00* Test Item Value Reference Range Interpretation Comme nts GLUCOSE (test code = 2217) 89 MG/DL BUN (test code = 2208) 12 MG/DL CREATININE (test code = 2214) 0.52 MG/DL eGFR (2020 CKD-EPI) (test code = 20147) 127 ML/MIN/1.73 CALC BUN/CREAT (test code = [...] (test code = 2219) 12 U/L Azam [id number] 00:00:00* Test Item Value Reference Range Interpretation Comme nts TSH, THIRD GENERATION (test code = 2821) 1.130 UIU/ML Azam RaphaelCBC W/AUTO [id number] 00:00:00* Test Item Value Reference Range Interpretation [...] ABS NUCLEATED RBCS (test cod e = 52523) 0.00 K/UL Azam RaphaelLIPID [id number] 00:00:00* Test Item Value Reference Range Interpretation Comme nts CHOLESTEROL (test code = 2210) 192 MG/DL TRIGLYCERIDES (test code = 2232) 78 MG/DL HDL CHOLESTEROL (test code = 2220) 56 MG/DL CALC LDL CHOL (test code = 2237) 119 MG/DL RISK RATIO LDL/HDL (test cod e = 2238) 2.13 RATIO Azam RaphaelCOMPREHENSIVE METABOLIC [id number] 00:00:00* Test Item Value Reference Range Interpretation Comme nts GLUCOSE (test code = 2217) 89 MG/DL BUN (test code = 2208) 12 MG/DL CREATININE (test code = 2214) 0.52 MG/DL eGFR (2020 CKD-EPI) (test code = 34213) 127 ML/MIN/1.73 CALC BUN/CREAT (test code = [...] (test code = 2219) 12 U/L Azam [id number] 00:00:00* Test Item Value Reference Range Interpretation Comme [facility] TSH, THIRD GENERATION (test code = 2821) 1.130 UIU/ML Azam RaphaelCBC W/AUTO [id number] 00:00:00* Test Item Value Reference Range Interpretation Comme [facility] WBC (test code = 1001) 7.2 K/UL [...] ABS NUCLEATED RBCS (test cod e = 91662) 0.00 K/UL Azam Vallejo [facility] W/AUTO [id number] 00:00:00* Test Item Value Reference Range Interpretation [...] ABS NUCLEATED RBCS (test cod e = 99297) 0.00 K/UL CBC W/AUTO [id number] 00:00:00* Test Item Value Reference Range Interpretation [...] ABS NUCLEATED RBCS (test cod e = 38890) 0.00 K/UL LIPID [id number] 00:00:00* Test Item Value Reference Range Interpretation Comme nts CHOLESTEROL (test code = 2210) 192 MG/DL TRIGLYCERIDES (test code = 2232) 78 MG/DL HDL CHOLESTEROL (test code = 2220) 56 MG/DL CALC LDL CHOL (test code = 2237) 119 MG/DL RISK RATIO LDL/HDL (test cod e = 2238) 2.13 RATIO COMPREHENSIVE METABOLIC [id number] 00:00:00* Test Item Value Reference Range Interpretation Comme nts GLUCOSE (test code = 2217) 89 MG/DL BUN (test code = 2208) 12 MG/DL CREATININE (test code = 2214) 0.52 MG/DL eGFR (2020 CKD-EPI) (test code = 38680) 127 ML/MIN/1.73 CALC BUN/CREAT (test code = 2235) 23 RATIO SODIUM (test code = 2231) 138 MEQ/L POTASSIUM (test code = 2228) 4.0 MEQ/L CHLORIDE (test code = 2215) 103 MEQ/L CARBON DIOXIDE (test code = 2206) 22 MEQ/L CALCIUM (test code = 2209) 9.6 MG/DL PROTEIN, TOTAL (test code = 2229) 7.0 G/DL ALBUMIN (test code = 220) 4.6 G/DL CALC GLOBULIN (test code = 2240) 2.4 G/DL CALC A/G RATIO (test code = 2234) 1.9 RATIO BILIRUBIN, TOTAL (test code = 7) 0.6 MG/DL ALKALINE PHOSPHATASE (test code = 4) 99 U/L AST (test code = 2218) 17 U/L ALT (test code = 2219) 12 U/L [id number] 00:00:00* Test Item Value Reference Range Interpretation Comme [facility] TSH, THIRD GENERATION (test code = 2821) 1.130 UIU/ML [id number] 00:00:00* Test Item Value Reference Range Interpretation Comme nts TSH, THIRD GENERATION (test code = 2821) 1.130 UIU/ML CBC W/AUTO [id number] 00:00:00* Test Item Value Reference Range Interpretation [...] ABS NUCLEATED RBCS (test cod e = 46651) 0.00 K/UL CBC W/AUTO [id number] 00:00:00* Test Item Value Reference Range Interpretation [...] ABS NUCLEATED RBCS (test cod e = 38932) 0.00 K/UL CBC W/AUTO [id number] 00:00:00* Test Item Value Reference Range Interpretation [...] ABS NUCLEATED RBCS (test cod e = 95490) 0.00 K/UL LIPID [id number] 00:00:00* Test Item Value Reference Range Interpretation Comme nts CHOLESTEROL (test code = 2210) 192 MG/DL TRIGLYCERIDES (test code = 2232) 78 MG/DL HDL CHOLESTEROL (test code = 2220) 56 MG/DL CALC LDL CHOL (test code = 2237) 119 MG/DL RISK RATIO LDL/HDL (test cod e = 2238) 2.13 RATIO LIPID [id number] 00:00:00* Test Item Value Reference Range Interpretation Comme nts CHOLESTEROL (test code = 2210) 192 MG/DL TRIGLYCERIDES (test code = 2232) 78 MG/DL HDL CHOLESTEROL (test code = 2220) 56 MG/DL CALC LDL CHOL (test code = 2237) 119 MG/DL RISK RATIO LDL/HDL (test cod e = 2238) 2.13 RATIO COMPREHENSIVE METABOLIC [id number] 00:00:00* Test Item Value Reference Range Interpretation Comme nts GLUCOSE (test code = 2217) 89 MG/DL BUN (test code = 2208) 12 MG/DL CREATININE (test code = 2214) 0.52 MG/DL eGFR (2020 CKD-EPI) (test code = 96411) 127 ML/MIN/1.73 CALC BUN/CREAT (test code = [...] code = 2219) 12 U/L COMPREHENSIVE METABOLIC [id number] 00:00:00* Test Item Value Reference Range Interpretation Comme nts GLUCOSE (test code = 2217) 89 MG/DL BUN (test code = 2208) 12 MG/DL CREATININE (test code = 2214) 0.52 MG/DL eGFR (2020 CKD-EPI) (test code = 92875) 127 ML/MIN/1.73 CALC BUN/CREAT (test code = [...] ALT (test code = 2219) 12 U/L [id number] 00:00:00* Test Item Value Reference Range Interpretation Comme nts TSH, THIRD GENERATION (test code = 2821) 1.130 UIU/ML [id number] 00:00:00* Test Item Value Reference Range Interpretation Comme nts TSH, THIRD GENERATION (test code = 2821) 1.130 UIU/ML [id number] 00:00:00* Test Item Value Reference Range Interpretation Comme nts TSH, THIRD GENERATION (test code = 2821) 1.130 UIU/ML CBC W/AUTO [id number] 00:00:00* Test Item Value Reference Range Interpretation [...] ABS NUCLEATED RBCS (test cod e = 55154) 0.00 K/UL CBC W/AUTO [id number] 00:00:00* Test Item Value Reference Range Interpretation [...] ABS NUCLEATED RBCS (test cod e = 05251) 0.00 K/UL CBC W/AUTO [id number] 00:00:00* Test Item Value Reference Range Interpretation [...] ABS NUCLEATED RBCS (test cod e = 93110) 0.00 K/UL LIPID [id number] 00:00:00* Test Item Value Reference Range Interpretation Comme nts CHOLESTEROL (test code = 2210) 192 MG/DL TRIGLYCERIDES (test code = 2232) 78 MG/DL HDL CHOLESTEROL (test code = 2220) 56 MG/DL CALC LDL CHOL (test code = 2237) 119 MG/DL RISK RATIO LDL/HDL (test cod e = 2238) 2.13 RATIO LIPID [id number] 00:00:00* Test Item Value Reference Range Interpretation Comme nts CHOLESTEROL (test code = 2210) 192 MG/DL TRIGLYCERIDES (test code = 2232) 78 MG/DL HDL CHOLESTEROL (test code = 2220) 56 MG/DL CALC LDL CHOL (test code = 2237) 119 MG/DL RISK RATIO LDL/HDL (test cod e = 2238) 2.13 RATIO COMPREHENSIVE METABOLIC [id number] 00:00:00* Test Item Value Reference Range Interpretation Comme nts GLUCOSE (test code = 2217) 89 MG/DL BUN (test code = 2208) 12 MG/DL CREATININE (test code = 2214) 0.52 MG/DL eGFR (2020 CKD-EPI) (test code = 28114) 127 ML/MIN/1.73 CALC BUN/CREAT (test code = [...] code = 2219) 12 U/L COMPREHENSIVE METABOLIC [id number] 00:00:00* Test Item Value Reference Range Interpretation Comme nts GLUCOSE (test code = 2217) 89 MG/DL BUN (test code = 2208) 12 MG/DL CREATININE (test code = 2214) 0.52 MG/DL eGFR (2020 CKD-EPI) (test code = 42454) 127 ML/MIN/1.73 CALC BUN/CREAT (test code = [...] ALT (test code = 2219) 12 U/L [id number] 00:00:00* Test Item Value Reference Range Interpretation Comme nts TSH, THIRD GENERATION (test code = 2821) 1.130 UIU/ML [id number] 00:00:00* Test Item Value Reference Range Interpretation Comme nts TSH, THIRD GENERATION (test code = 2821) 1.130 UIU/ML [id number] 00:00:00* Test Item Value Reference Range Interpretation Comme nts TSH, THIRD GENERATION (test code = 2821) 1.130 UIU/ML SARS-CoV-2 (COVID-19) by RT-PCR (HIGH RISK)2021-02-01 00:00:00* Test Item Value Reference Range Interpretation Comme nts SARS-CoV-2 INTERPRETATION (t est code = 01995) NEGATIVE SOURCE (test code = 15584) NOT SPECIFIED Azam Vallejo [id number] (COVID-19) by RT-PCR (HIGH RISK)2021-02-01 00:00:00* Test Item Value Reference Range Interpretation Comme nts SARS-CoV-2 INTERPRETATION (t est code = 24123) NEGATIVE SOURCE (test code = 08968) NOT SPECIFIED Azam F [id number] (COVID-19) by RT-PCR (HIGH RISK)2021-02-01 00:00:00* Test Item Value Reference Range Interpretation Comme nts SARS-CoV-2 INTERPRETATION (t est code = 01637) NEGATIVE SOURCE (test code = 62319) NOT SPECIFIED SARS-CoV-2 (COVID-19) by RT-PCR (HIGH RISK)2021-02-01 00:00:00* Test Item Value Reference Range Interpretation Comme nts SARS-CoV-2 INTERPRETATION (t est code = 09651) NEGATIVE SOURCE (test code = 27510) NOT SPECIFIED SARS-CoV-2 (COVID-19) by RT-PCR (HIGH RISK)2021-02-01 00:00:00* Test Item Value Reference Range Interpretation Comme nts SARS-CoV-2 INTERPRETATION (t est code = 26568) NEGATIVE SOURCE (test code = 95040) NOT SPECIFIED SARS-CoV-2 (COVID-19) by RT-PCR (HIGH RISK)2021-02-01 00:00:00* Test Item Value Reference Range Interpretation Comme nts SARS-CoV-2 INTERPRETATION (t est code = 89499) NEGATIVE SOURCE (test code = 85489) NOT SPECIFIED SARS-CoV-2 (COVID-19) by RT-PCR (HIGH RISK)2021-02-01 00:00:00* Test Item Value Reference Range Interpretation Comme nts SARS-CoV-2 INTERPRETATION (t est code = 03093) NEGATIVE SOURCE (test code = 22362) NOT SPECIFIED COMPREHENSIVE METABOLIC [id number] 00:00:00* Test Item Value Reference Range Interpretation Comme nts GLUCOSE (test code = 2217) 112 MG/DL BUN (test code = 2208) 14 MG/DL CREATININE (test code = 2214) 0.90 MG/DL eGFR AMER. (test cod e = 18115) 99 ML/MIN/1.73 eGFR NON- AMER. (test code = 75748) 85 ML/MIN/1.73 CALC BUN/CREAT (test code = [...] (test code = 2219) 22 U/L Azam [id number] 00:00:00* Test Item Value Reference Range Interpretation Comme nts TSH, THIRD GENERATION (test code = 2821) 1.640 UIU/ML Azam Vallejo DonavonTRICHOMONAS, URINE, [id number] 00:00:00* Test Item Value Reference Range Interpretation Comme nts TRICHOMONAS, NAAT (test code = 72430) NEGATIVE Azam Yoni DonavonCBC W/AUTO [id number] 00:00:00* Test Item Value Reference Range Interpretation [...] = 1015) 280 K/UL Azam RaphaelCOMPREHENSIVE METABOLIC [id number] 00:00:00* Test Item Value Reference Range Interpretation Comme nts GLUCOSE (test code = 2217) 112 MG/DL BUN (test code = 2208) 14 MG/DL CREATININE (test code = 2214) 0.90 MG/DL eGFR AMER. (test cod e = 18660) 99 ML/MIN/1.73 eGFR NON- AMER. (test code = 04352) 85 ML/MIN/1.73 CALC BUN/CREAT (test code = [...] (test code = 2219) 22 U/L Azam [id number] 00:00:00* Test Item Value Reference Range Interpretation Comme nts TSH, THIRD GENERATION (test code = 2821) 1.640 UIU/ML Azam RaphaelTRICHOMONAS, URINE, [id number] 00:00:00* Test Item Value Reference Range Interpretation Comme nts TRICHOMONAS, NAAT (test code = 70146) NEGATIVE Azam RaphaelCBC W/AUTO [id number] 00:00:00* Test Item Value Reference Range Interpretation [...] code = 1015) 280 K/UL CBC W/AUTO [id number] 00:00:00* Test Item Value Reference Range Interpretation [...] code = 1015) 280 K/UL COMPREHENSIVE METABOLIC [id number] 00:00:00* Test Item Value Reference Range Interpretation Comme nts GLUCOSE (test code = 2217) 112 MG/DL BUN (test code = 2208) 14 MG/DL CREATININE (test code = 2214) 0.90 MG/DL eGFR AMER. (test cod e = 63963) 99 ML/MIN/1.73 eGFR NON- AMER. (test code = 56881) 85 ML/MIN/1.73 CALC BUN/CREAT (test code = [...] ALT (test code = 2219) 22 U/L [id number] 00:00:00* Test Item Value Reference Range Interpretation Comme nts TSH, THIRD GENERATION (test code = 2821) 1.640 UIU/ML [id number] 00:00:00* Test Item Value Reference Range Interpretation Comme nts TSH, THIRD GENERATION (test code = 2821) 1.640 UIU/ML TRICHOMONAS, URINE, [id number] 00:00:00* Test Item Value Reference Range Interpretation Comme nts TRICHOMONAS, NAAT (test code = 22700) NEGATIVE CBC W/AUTO [id number] 00:00:00* Test Item Value Reference Range Interpretation [...] code = 1015) 280 K/UL CBC W/AUTO [id number] 00:00:00* Test Item Value Reference Range Interpretation [...] code = 1015) 280 K/UL CBC W/AUTO [id number] 00:00:00* Test Item Value Reference Range Interpretation [...] code = 1015) 280 K/UL COMPREHENSIVE METABOLIC [id number] 00:00:00* Test Item Value Reference Range Interpretation Comme nts GLUCOSE (test code = 2217) 112 MG/DL BUN (test code = 2208) 14 MG/DL CREATININE (test code = 2214) 0.90 MG/DL eGFR AMER. (test cod e = 65016) 99 ML/MIN/1.73 eGFR NON- AMER. (test code = 95754) 85 ML/MIN/1.73 CALC BUN/CREAT (test code = [...] code = 2219) 22 U/L COMPREHENSIVE METABOLIC [id number] 00:00:00* Test Item Value Reference Range Interpretation Comme nts GLUCOSE (test code = 2217) 112 MG/DL BUN (test code = 2208) 14 MG/DL CREATININE (test code = 2214) 0.90 MG/DL eGFR AMER. (test cod e = 12339) 99 ML/MIN/1.73 eGFR NON- AMER. (test code = 39995) 85 ML/MIN/1.73 CALC BUN/CREAT (test code = [...] ALT (test code = 2219) 22 U/L [id number] 00:00:00* Test Item Value Reference Range Interpretation Comme nts TSH, THIRD GENERATION (test code = 2821) 1.640 UIU/ML [id number] 00:00:00* Test Item Value Reference Range Interpretation Comme nts TSH, THIRD GENERATION (test code = 2821) 1.640 UIU/ML [id number] 00:00:00* Test Item Value Reference Range Interpretation Comme nts TSH, THIRD GENERATION (test code = 2821) 1.640 UIU/ML TRICHOMONAS, URINE, [id number] 00:00:00* Test Item Value Reference Range Interpretation Comme nts TRICHOMONAS, NAAT (test code = 71950) NEGATIVE TRICHOMONAS, URINE, [id number] 00:00:00* Test Item Value Reference Range Interpretation Comme nts TRICHOMONAS, NAAT (test code = 16725) NEGATIVE CBC W/AUTO [id number] 00:00:00* Test Item Value Reference Range Interpretation [...] code = 1015) 280 K/UL CBC W/AUTO [id number] 00:00:00* Test Item Value Reference Range Interpretation [...] code = 1015) 280 K/UL CBC W/AUTO [id number] 00:00:00* Test Item Value Reference Range Interpretation [...] code = 1015) 280 K/UL COMPREHENSIVE METABOLIC [id number] 00:00:00* Test Item Value Reference Range Interpretation Comme nts GLUCOSE (test code = 2217) 112 MG/DL BUN (test code = 2208) 14 MG/DL CREATININE (test code = 2214) 0.90 MG/DL eGFR AMER. (test cod e = 63344) 99 ML/MIN/1.73 eGFR NON- AMER. (test code = 61226) 85 ML/MIN/1.73 CALC BUN/CREAT (test code = [...] code = 2219) 22 U/L COMPREHENSIVE METABOLIC [id number] 00:00:00* Test Item Value Reference Range Interpretation Comme nts GLUCOSE (test code = 2217) 112 MG/DL BUN (test code = 2208) 14 MG/DL CREATININE (test code = 2214) 0.90 MG/DL eGFR AMER. (test cod e = 70120) 99 ML/MIN/1.73 eGFR NON- AMER. (test code = 77931) 85 ML/MIN/1.73 CALC BUN/CREAT (test code = [...] ALT (test code = 2219) 22 U/L [id number] 00:00:00* Test Item Value Reference Range Interpretation Comme nts TSH, THIRD GENERATION (test code = 2821) 1.640 UIU/ML [id number] 00:00:00* Test Item Value Reference Range Interpretation Comme nts TSH, THIRD GENERATION (test code = 2821) 1.640 UIU/ML [id number] 00:00:00* Test Item Value Reference Range Interpretation Comme nts TSH, THIRD GENERATION (test code = 2821) 1.640 UIU/ML TRICHOMONAS, URINE, [id number] 00:00:00* Test Item Value Reference Range Interpretation Comme nts TRICHOMONAS, NAAT (test code = 79122) NEGATIVE TRICHOMONAS, URINE, [id number] 00:00:00* Test Item Value Reference Range Interpretation Comme nts TRICHOMONAS, NAAT (test code = 77991) NEGATIVE CBC W/AUTO [id number] 00:00:00* Test Item Value Reference Range Interpretation [...] (test code = 1015) 280 K/UL Azam RaphaelNOTE: [ADDED]2020-06-23 00:00:00* Test Item Value Reference Range Interpretation Comme nts NOTE: (test code = 998) (NOTE) Azam RaphaelHCG, QUANTITATIVE [ADDED]2020-06-23 00:00:00* Test Item Value Reference Range Interpretation Comme nts HCG, QUANTITATIVE (test code = 2506) <5 MIU/ML Azam Vallejo AustinNOTE: [ADDED]2020-06-23 00:00:00* Test Item Value Reference Range [...] NOTE: (test code = 998) (NOTE) CULTURE, [id number] 00:00:00* Test Item Value Reference Range Interpretation Comme nts CULTURE, URINE (test code = 21100) SPECIMEN NUMBER: [id number] Azam RaphaelCULTURE, [id number] 00:00:00* Test Item Value Reference Range Interpretation Comme nts CULTURE, URINE (test code = 54586) SPECIMEN NUMBER: [id number] Azam RaphaelCULTURE, [id number] 00:00:00* Test Item Value Reference Range Interpretation Comme nts CULTURE, URINE (test code = 92345) SPECIMEN NUMBER: [id number] CULTURE, [id number] 00:00:00* Test Item Value Reference Range Interpretation Comme nts CULTURE, URINE (test code = 37823) SPECIMEN NUMBER: [id number] CULTURE, [id number] 00:00:00* Test Item Value Reference Range Interpretation Comme nts CULTURE, URINE (test code = 50069) SPECIMEN NUMBER: [id number] CULTURE, [id number] 00:00:00* Test Item Value Reference Range Interpretation Comme nts CULTURE, URINE (test code = 19669) SPECIMEN NUMBER: [id number] CULTURE, [id number] 00:00:00* Test Item Value Reference Range Interpretation Comme nts CULTURE, URINE (test code = 52912) SPECIMEN NUMBER: [id number] HIV AB/AG COMBO RFLX [id number] 00:00:00* Test Item Value Reference Range Interpretation Comme nts HIV 1/2 4TH GEN, RFLX CONF ( test code = 3514) NON-REACTIVE Azam Vallejo DonavonRPR REFLEX TO [id number] 00:00:00* Test Item Value Reference Range Interpretation Comme nts RPR (test code = 99900) NON-REACTIVE RPR TITER (test code = 3500) NOT INDIC. TITER Azam Vallejo DonavonHEPATITIS PROFILE (A,B,C)2020-06-21 00:00:00* Test Item Value Reference [...] (NOTE) INTERPRETATION HEPATITIS B: (test code = 30986) (NOTE) INTERPRETATION HEPATITIS C: (test code = 31815) (NOTE) Azam Vallejo DonavonHEPATITIS A IgM [REFLEX]2020-06-21 00:00:00* Test Item Value Reference Range Interpretation Comme nts HEPATITIS A IgM (test code = 2728) NON-REACTIVE Azam Vallejo DonavonGC AND CHLAMYDIA, AMPLIFIED, [id number] 00:00:00* Test Item Value Reference Range Interpretation Comme nts GONORRHEA, NAAT (test code = 92575) NEGATIVE CHLAMYDIA, NAAT (test code = 58588) NEGATIVE Azam Vallejo DonavonHIV AB/AG COMBO RFLX [id number] 00:00:00* Test Item Value Reference Range Interpretation Comme nts HIV 1/2 4TH GEN, RFLX CONF ( test code = 3514) NON-REACTIVE Azam RaphaelRPR REFLEX TO [id number] 00:00:00* Test Item Value Reference Range Interpretation Comme nts RPR (test code = 13949) NON-REACTIVE RPR TITER (test code = 3500) NOT INDIC. TITER Azam Vallejo YosiPATITIS PROFILE (A,B,C)2020-06-21 00:00:00* Test Item Value Reference [...] (NOTE) INTERPRETATION HEPATITIS B: (test code = 59209) (NOTE) INTERPRETATION HEPATITIS C: (test code = 29211) (NOTE) Azam RaphaelHEPATITIS A IgM [REFLEX]2020-06-21 00:00:00* Test Item Value Reference Range Interpretation Comme nts HEPATITIS A IgM (test code = 2728) NON-REACTIVE Azam RaphaelGC AND CHLAMYDIA, AMPLIFIED, [id number] 00:00:00* Test Item Value Reference Range Interpretation Comme nts GONORRHEA, NAAT (test code = 30488) NEGATIVE CHLAMYDIA, NAAT (test code = 55260) NEGATIVE Azam RaphaelGC AND CHLAMYDIA, AMPLIFIED, [id number] 00:00:00* Test Item Value Reference Range Interpretation Comme nts GONORRHEA, NAAT (test code = 11242) NEGATIVE CHLAMYDIA, NAAT (test code = 57770) NEGATIVE HIV AB/AG COMBO RFLX [id number] 00:00:00* Test Item Value Reference Range Interpretation Comme nts HIV 1/2 4TH GEN, RFLX CONF ( test code = 3514) NON-REACTIVE RPR REFLEX TO [id number] 00:00:00* Test Item Value Reference Range Interpretation Comme nts RPR (test code = 24050) NON-REACTIVE RPR TITER (test code = 3500) [...] (NOTE) INTERPRETATION HEPATITIS B: (test code = 07595) (NOTE) INTERPRETATION HEPATITIS C: (test code = 74183) (NOTE) HEPATITIS A IgM [REFLEX]2020-06-21 00:00:00* Test Item Value Reference Range Interpretation Comme nts HEPATITIS A IgM (test code = 2728) NON-REACTIVE GC AND CHLAMYDIA, AMPLIFIED, [id number] 00:00:00* Test Item Value Reference Range Interpretation Comme nts GONORRHEA, NAAT (test code = 13999) NEGATIVE CHLAMYDIA, NAAT (test code = 64090) NEGATIVE GC AND CHLAMYDIA, AMPLIFIED, [id number] 00:00:00* Test Item Value Reference Range Interpretation Comme nts GONORRHEA, NAAT (test code = 03124) NEGATIVE CHLAMYDIA, NAAT (test code = 93968) NEGATIVE HIV AB/AG COMBO RFLX [id number] 00:00:00* Test Item Value Reference Range Interpretation Comme nts HIV 1/2 4TH GEN, RFLX CONF ( test code = 3514) NON-REACTIVE HIV AB/AG COMBO RFLX [id number] 00:00:00* Test Item Value Reference Range Interpretation Comme nts HIV 1/2 4TH GEN, RFLX CONF ( test code = 3514) NON-REACTIVE RPR REFLEX TO [id number] 00:00:00* Test Item Value Reference Range Interpretation Comme nts RPR (test code = 50533) NON-REACTIVE RPR TITER (test code = 3500) NOT INDIC. TITER RPR REFLEX TO [id number] 00:00:00* Test Item Value Reference Range Interpretation Comme nts RPR (test code = 27170) NON-REACTIVE RPR TITER (test code = 3500) [...] (NOTE) INTERPRETATION HEPATITIS B: (test code = 33480) (NOTE) INTERPRETATION HEPATITIS C: (test code = 16792) (NOTE) HEPATITIS PROFILE (A,B,C)2020-06-21 00:00:00* Test Item Value Reference Range Interpretation Comme nts HEPATITIS A TOTAL AB (test c ode = 2725) REACTIVE HEPATITIS B SURF AG (test co de = 2739) NON-REACTIVE HEP B CORE TOTAL AB (test co de = 2729) NON-REACTIVE HEPATITIS B SURFACE AB (test code = 2737) REACTIVE HEPATITIS C ANTIBODY (test c ode = 4659) NON-REACTIVE INTERPRETATION HEPATITIS A: (test code = 2552) (NOTE) INTERPRETATION HEPATITIS B: (test code = 33923) (NOTE) INTERPRETATION HEPATITIS C: (test code = 50557) (NOTE) HEPATITIS A IgM [REFLEX]2020-06-21 00:00:00* Test Item Value Reference Range Interpretation Comme nts HEPATITIS A IgM (test code = 2728) NON-REACTIVE GC AND CHLAMYDIA, AMPLIFIED, [id number] 00:00:00* Test Item Value Reference Range Interpretation Comme nts GONORRHEA, NAAT (test code = 50737) NEGATIVE CHLAMYDIA, NAAT (test code = 27952) NEGATIVE GC AND CHLAMYDIA, AMPLIFIED, [id number] 00:00:00* Test Item Value Reference Range Interpretation Comme nts GONORRHEA, NAAT (test code = 91175) NEGATIVE CHLAMYDIA, NAAT (test code = 07828) NEGATIVE HIV AB/AG COMBO RFLX [id number] 00:00:00* Test Item Value Reference Range Interpretation Comme nts HIV 1/2 4TH GEN, RFLX CONF ( test code = 3514) NON-REACTIVE HIV AB/AG COMBO RFLX [id number] 00:00:00* Test Item Value Reference Range Interpretation Comme nts HIV 1/2 4TH GEN, RFLX CONF ( test code = 3514) NON-REACTIVE RPR REFLEX TO [id number] 00:00:00* Test Item Value Reference Range Interpretation Comme nts RPR (test code = 31469) NON-REACTIVE RPR TITER (test code = 3500) NOT INDIC. TITER RPR REFLEX TO [id number] 00:00:00* Test Item Value Reference Range Interpretation Comme nts RPR (test code = 39227) NON-REACTIVE RPR TITER (test code = 3500) [...] (NOTE) INTERPRETATION HEPATITIS B: (test code = 21526) (NOTE) INTERPRETATION HEPATITIS C: (test code = 78062) (NOTE) HEPATITIS PROFILE (A,B,C)2020-06-21 00:00:00* Test Item [...] (NOTE) INTERPRETATION HEPATITIS B: (test code = 18714) (NOTE) INTERPRETATION HEPATITIS C: (test code = 28196) (NOTE) HEPATITIS A IgM [REFLEX]2020-06-21 00:00:00* Test Item Value Reference Range Interpretation Comme nts HEPATITIS A IgM (test code = 2728) NON-REACTIVE HIV AB/AG COMBO RFLX [id number] 00:00:00* Test Item Value Reference Range Interpretation Comme nts HIV 1/2 4TH GEN, RFLX CONF ( test code = 3514) NON-REACTIVE Azam Vallejo [id number] 00:00:00* Test Item Value Reference Range Interpretation Comme nts RPR RESULT (test code = 3501) NON-REACTIVE RPR TITER (test code = 3500) NOT INDIC. TITER Azam Yoni DonavonGC AND CHLAMYDIA, AMPLIFIED, [id number] 00:00:00* Test Item Value Reference Range Interpretation Comme nts GONORRHEA, NAAT (test code = 98256) NEGATIVE CHLAMYDIA, NAAT (test code = 50946) NEGATIVE Azam RaphaelVAGINAL PATHOGENS DNA [id number] 00:00:00* Test Item Value Reference Range Interpretation Comme nts DWIGHT SPECIES (test code = 29243) NEGATIVE G. VAGINALIS (test code = 21072) POSITIVE T. VAGINALIS (test code = 18157) NEGATIVE Azam RaphaelHIV AB/AG COMBO RFLX [id number] 00:00:00* Test Item Value Reference Range Interpretation Comme nts HIV 1/2 4TH GEN, RFLX CONF ( test code = 3514) NON-REACTIVE Azam Vallejo [id number] 00:00:00* Test Item Value Reference Range Interpretation Comme nts RPR RESULT (test code = 3501) NON-REACTIVE RPR TITER (test code = 3500) NOT INDIC. TITER Azam RaphaelGC AND CHLAMYDIA, AMPLIFIED, [id number] 00:00:00* Test Item Value Reference Range Interpretation Comme nts GONORRHEA, NAAT (test code = 91525) NEGATIVE CHLAMYDIA, NAAT (test code = 15428) NEGATIVE Azam RaphaelVAGINAL PATHOGENS DNA [id number] 00:00:00* Test Item Value Reference Range Interpretation Comme nts DWIGHT SPECIES (test code = ) NEGATIVE G. VAGINALIS (test code = 62912) POSITIVE T. VAGINALIS (test code = 79518) NEGATIVE HIV AB/AG COMBO RFLX [id number] 00:00:00* Test Item Value Reference Range Interpretation Comme nts HIV 1/2 4TH GEN, RFLX CONF ( test code = 3514) NON-REACTIVE [id number] 00:00:00* Test Item Value Reference Range Interpretation Comme nts RPR RESULT (test code = 3501) NON-REACTIVE RPR TITER (test code = 3500) NOT INDIC. TITER [id number] 00:00:00* Test Item Value Reference Range Interpretation Comme nts RPR RESULT (test code = 3501) NON-REACTIVE RPR TITER (test code = 3500) NOT INDIC. TITER GC AND CHLAMYDIA, AMPLIFIED, [id number] 00:00:00* Test Item Value Reference Range Interpretation Comme nts GONORRHEA, NAAT (test code = 96185) NEGATIVE CHLAMYDIA, NAAT (test code = 56601) NEGATIVE VAGINAL PATHOGENS DNA [id number] 00:00:00* Test Item Value Reference Range Interpretation Comme nts DWIGHT SPECIES (test code = ) NEGATIVE G. VAGINALIS (test code = 70091) POSITIVE T. VAGINALIS (test code = 47040) NEGATIVE VAGINAL PATHOGENS DNA [id number] 00:00:00* Test Item Value Reference Range Interpretation Comme nts DWIGHT SPECIES (test code = ) NEGATIVE G. VAGINALIS (test code = 82629) POSITIVE T. VAGINALIS (test code = 96513) NEGATIVE HIV AB/AG COMBO RFLX [id number] 00:00:00* Test Item Value Reference Range Interpretation Comme nts HIV 1/2 4TH GEN, RFLX CONF ( test code = 3514) NON-REACTIVE HIV AB/AG COMBO RFLX [id number] 00:00:00* Test Item Value Reference Range Interpretation Comme nts HIV 1/2 4TH GEN, RFLX CONF ( test code = 3514) NON-REACTIVE [id number] 00:00:00* Test Item Value Reference Range Interpretation Comme nts RPR RESULT (test code = 3501) NON-REACTIVE RPR TITER (test code = 3500) NOT INDIC. TITER [id number] 00:00:00* Test Item Value Reference Range Interpretation Comme nts RPR RESULT (test code = 3501) NON-REACTIVE RPR TITER (test code = 3500) NOT INDIC. TITER [id number] 00:00:00* Test Item Value Reference Range Interpretation Comme nts RPR RESULT (test code = 3501) NON-REACTIVE RPR TITER (test code = 3500) NOT INDIC. TITER GC AND CHLAMYDIA, AMPLIFIED, [id number] 00:00:00* Test Item Value Reference Range Interpretation Comme nts GONORRHEA, NAAT (test code = 65699) NEGATIVE CHLAMYDIA, NAAT (test code = 62041) NEGATIVE GC AND CHLAMYDIA, AMPLIFIED, [id number] 00:00:00* Test Item Value Reference Range Interpretation Comme nts GONORRHEA, NAAT (test code = 25208) NEGATIVE CHLAMYDIA, NAAT (test code = 13721) NEGATIVE VAGINAL PATHOGENS DNA [id number] 00:00:00* Test Item Value Reference Range Interpretation Comme nts DWIGHT SPECIES (test code = ) NEGATIVE G. VAGINALIS (test code = 83985) POSITIVE T. VAGINALIS (test code = 68803) NEGATIVE VAGINAL PATHOGENS DNA [id number] 00:00:00* Test Item Value Reference Range Interpretation Comme nts DWIGHT SPECIES (test code = ) NEGATIVE G. VAGINALIS (test code = 95640) POSITIVE T. VAGINALIS (test code = 52215) NEGATIVE HIV AB/AG COMBO RFLX [id number] 00:00:00* Test Item Value Reference Range Interpretation Comme nts HIV 1/2 4TH GEN, RFLX CONF ( test code = 3514) NON-REACTIVE HIV AB/AG COMBO RFLX [id number] 00:00:00* Test Item Value Reference Range Interpretation Comme nts HIV 1/2 4TH GEN, RFLX CONF ( test code = 3514) NON-REACTIVE [id number] 00:00:00* Test Item Value Reference Range Interpretation Comme nts RPR RESULT (test code = 3501) NON-REACTIVE RPR TITER (test code = 3500) NOT INDIC. TITER [id number] 00:00:00* Test Item Value Reference Range Interpretation Comme nts RPR RESULT (test code = 3501) NON-REACTIVE RPR TITER (test code = 3500) NOT INDIC. TITER [id number] 00:00:00* Test Item Value Reference Range Interpretation Comme nts RPR RESULT (test code = 3501) NON-REACTIVE RPR TITER (test code = 3500) NOT INDIC. TITER GC AND CHLAMYDIA, AMPLIFIED, [id number] 00:00:00* Test Item Value Reference Range Interpretation Comme nts GONORRHEA, NAAT (test code = 83319) NEGATIVE CHLAMYDIA, NAAT (test code = 84288) NEGATIVE GC AND CHLAMYDIA, AMPLIFIED, [id number] 00:00:00* Test Item Value Reference Range Interpretation Comme nts GONORRHEA, NAAT (test code = 85088) NEGATIVE CHLAMYDIA, NAAT (test code = 95304) NEGATIVE VAGINAL PATHOGENS DNA [id number] 00:00:00* Test Item Value Reference Range Interpretation Comme nts DWIGHT SPECIES (test code = 40670) NEGATIVE G. VAGINALIS (test code = ) POSITIVE T. VAGINALIS (test code = ) NEGATIVE Azam F AustinGC AND CHLAMYDIA, AMPLIFIED, [id number] 00:00:00* Test Item Value Reference Range Interpretation Comme nts GONORRHEA, TMA (test code = 21861) NEGATIVE CHLAMYDIA, TMA (test code = 52020) NEGATIVE Azam F AustinGC AND CHLAMYDIA, AMPLIFIED, [id number] 00:00:00* Test Item Value Reference Range Interpretation Comme nts GONORRHEA, TMA (test code = 95691) NEGATIVE CHLAMYDIA, TMA (test code = 46986) NEGATIVE Azam F AustinGC AND CHLAMYDIA, AMPLIFIED,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
[2023-10-30] MEDS ORDERED: SMZ./TMP. 800/160 MG TABLET ONE (07:38)
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
[2023-10-30 08:05] VITALS: BP 117/82; TEMP 98.5; O2SAT 96
== END 2023-10-30 07:55 | disposition home or self-care (01) ==
LOC: ER 06:46
DX: L03.115 Cellulitis of right lower limb (principal); F17.210 Nicotine dependence, cigarettes, uncomplicated
CPT/HCPCS: 99283

== ENCOUNTER 2024-04-04 16:18 | Emergency (ER) | payer OTHER ==
--- OUTSIDE RECORDS SUMMARY | 2024-04-04 16:26 | XMS REPORT | Continuity of Care Document ---
Author Name Unknown Address [address] [facility] [address] [place] [address] [facility] Address [address] [facility] [address] [place] [address] Care Team Providers Care Wholesale Buyer Name Role Phone PIOTR ROMERO Primary Care Physician Unavailab YANICK Avelar Attending Clinician Chetan henderson LAB47 Attending Clinician Unavailable SANTA JOY Attending Clinician Unav ailGUILHERME Wu Attending Clinician Unavailable GUILHERME WILDER Attending Clinician Unavailable Guilherme Wilder MD Attending Clinician DR PIOTR ROMERO Attending Clinician Unavailable [id number] Attending Clinician Unavailable [id number] Attending Clinician Unavailable YUN SAMS Attending Clinician UnavailYUN Bhatt Attending Clinician UnavailLAURIE Franco Attending Clinician Unavailable Azam Rooney MD Attending Clinician Laurie Bowen MD Attending Clinician +[phone] CHASITY SALVADOR Attending Clinician Unavailable DIANN PONCE Attending Clinician Unavailable ELLIOT CAMEJO Attending Clinician Unavailable MAYNOR SAMUEL Attending Clinician Unavailable Doctor Unassigned, [place] Attending Clinician U Cathie Xiao MD Attending Clinician [phone] RIVERA PINK Attending Clinician Unavailable CATHIE SUBRAMANIAN Attending Clinician UnavailRivera Bland Attending Clinician [phone] JESSE DONG Attending Clinician Unavailable ERICA KLINE Attending Clinician Unavailable RADIOLOGY Attending Clinician Unavailable Radiology Attending Clinician Unavailable TIMOTEO CISSE Attending Clinician Unavailable Timoteo May Attending Clinician [phone] Karen Burnett PA-C Attending Clinician [phone] KAREN BURNETT Attending Clinician Unavailable Jesse Dong MD Attending Clinician [phone] BRYN BRADLEY Attending Clinician Unavailab roberto STONE Attending Clinician Unavailable RENUKA NELSON Attending Clinician Un available CARL WORKMAN Attending Clinician Unavailable AMNA CLARK Attending Clinician Unavailable RUSTAM THRASHER Attending Clinician Unavailable ISRAEL PEREZ Attending Clinician Unavailable ISRAEL PEREZ Attending Clinician Unavailable LENNOX CABRERA Attending Clinician UnavailAZEB Green Attending Clinician UnavailNISH Cardozo Attending Clinician UnavailYANICK Ludwig Admitting Clinician GUILHERME Ryan Admitting Clinician Unavailable DR PIOTR ROMERO Admitting Clinician Unavailable YUN SAMS Admitting Clinician UnavailLAURIE Franco Admitting Clinician Unavailable TIMOTEO CISSE Admitting Clinician Unavailable BERTHA Admitting Clinician Unavailable CARL WORKMAN Admitting Clinician Unavailable Payers Payer Name Policy Type Policy Number Effective Date Expirati on Date Source [facility] [id number] 00:00:00 [facility] [place] [facility] [id number] 00:00:00 [facility] [id number] 2024 00:00:00 [facility] W/ AMY STACK [id number] 2023 00:00:00 JAYDE HERNANDEZ FROM [facility] [id number] 2022 00:00:00 [facility] MEDICA[employer] [id number] 2018 00:00:00 Problems Condition Name Condition Details Condition Category Status Onset Date Resolution Date Last Treatment Date Treating Clinician Comments Source Anxiety Anxiety Disease Active 2023-04 00:00: 00 Amy Selilian - Externa l Infection of hand due to bite Infection of hand due to bite Disease Active 12-12 00:00: 00 [facility] Gastroesop hageal reflux disease without esophagiti s Gastroesop hageal reflux disease without esophagiti s Disease Active 2018-04 00:00: 00 [facility] Abnormal maternal glucose tolerance, antepartum Abnormal maternal glucose tolerance, antepartum Disease Active 2018-04 00:00: 00 [facility] Underweigh t Underweigh t Disease Active 01-21 00:00: 00 [facility] History of bipolar disorder History of bipolar disorder Disease Active 01-21 00:00: 00 [facility] Polysubsta nce abuse Polysubsta nce abuse Disease Active 01-17 00:00: 00 [facility] PTSD (post-trau matic stress disorder) PTSD (post-trau matic stress disorder) Disease Active 01-17 00:00: 00 [facility] Trichomona l vulvovagin itis Trichomona l vulvovagin itis Disease Active 10-26 00:00: 00 [facility] Hepatitis C antibody test positive Hepatitis C antibody test positive Disease Active 10-25 00:00: 00 Overview: Formattin g of this note might be different from the original. PCR negative [facility] Multiparit y Multiparit y Disease Active 10-22 00:00: 00 [facility] Eating disorder Eating disorder Disease Active 10-22 00:00: 00 [facility] Anxiety and depression Anxiety and depression Disease Active 10-22 00:00: 00 [facility] Lost custody of children Lost custody of children Disease Active 10-22 00:00: 00 [facility] History of seizures History of seizures Disease Active 10-22 00:00: 00 [facility] Normal delivery Normal delivery Disease Resolve d 2018-04 00:00: 00 2020-05-09 00:00:00 2020-05-09 10:40:05 [facility] Liveborn infant, of gonzalez , born in hospital by vaginal delivery Liveborn infant, of gonzalez , born in hospital by vaginal delivery Disease Resolve d 2018-04 00:00: 00 2020-05-09 00:00:00 2020-05-09 10:40:00 [facility] 35 weeks gestation of 35 weeks gestation of Disease Resolve d 2018-04 00:00: 00 2020-05-09 00:00:00 2020-05-09 10:39:58 [facility] affected by growth restrictio n affected by growth restrictio n Disease Resolve d 2018-04 00:00: 00 2020-05-09 00:00:00 2020-05-09 10:40:02 [facility] High-risk in third trimester High-risk in third trimester Disease Resolve d 10-22 00:00: 00 2020-05-09 00:00:00 2020-05-09 10:40:09 [facility] affected by intrauteri ne growth retardatio n (IUGR) affected by intrauteri ne growth retardatio n (IUGR) Disease Resolve d 2018-04 00:00: 00 2019-04-04 00:00:00 2019-04-04 08:57:14 [facility] Adult BMI <19 kg/sq m Adult BMI <19 kg/sq m Disease Resolve d 10-22 00:00: 00 2019-03-31 00:00:00 2019-03-31 12:29:44 [facility] Maternal tobacco use in first trimester Maternal tobacco use in first trimester Disease Resolve d 10-22 00:00: 00 2019-01-17 00:00:00 2019-01-17 13:39:40 [facility] Marijuana use Marijuana use Disease Resolve d 10-22 00:00: 00 2019-01-17 00:00:00 2019-01-17 13:40:48 [facility] Alcohol abuse affecting in first trimester Alcohol abuse affecting in first trimester Disease Resolve d 10-22 00:00: 00 2019-01-17 00:00:00 2019-01-17 13:39:46 [facility] Allergies, Adverse Reactions, Alerts Allergy Name Allergy Type Status Severity Reaction(s) Onset Date Inactive Date Treating Clinician Comments Source Ziprasid one Propensi ty to adverse reaction s Active 07-15 00:00: 00 AMS Amy Jacinto - Externa l Mesna - Intraven ous Propensi ty to adverse reaction to drug Active 10-18 00:00: 00 Azam Raphael Ziprasid one Mesylate Propensi ty to adverse reaction s Active Hallucinatio ns 2020-0 1-10 00:00: 00 [facility] Risperid one Propensi ty to adverse reaction s Active Hallucinatio ns 2020-0 1-10 00:00: 00 [facility] ZIPRASID ONE MESYLATE DRUG INGREDI Active Hallucinates 1-10 00:00: 00 [facility] RISPERID ONE DRUG INGREDI Active Hallucinates 1-10 00:00: 00 [facility] NO KNOWN ALLERGIE S Drug Class Active [facility] No Known Allergie s MA Active UNKNOWN [place] Social History Social Habit Start Date Stop Date Quantity Comments Source Sexual orientation 2023-06-25 10:05:01 Heterosexual (finding) Amy Jacinto - External History SDOH Alcohol Std Drinks [facility] History SDOH Alcohol Binge [facility] History SDOH Alcohol Comment [facility] History of tobacco use Cigarette Smoker Amy walker - External ASSERTION Possible Lex Jacinto - External Alcoholic beverage intake 2024-03-31 00:00:00 2024-03-31 00:00:00 Current drinker of alcohol (finding) Amy Jacinto - External History of Social function 2024-03-31 00:00:00 2024-03-31 00:00:00 Amy Jacinto - External Alcohol intake 2023-08-19 00:00:00 2023-08-19 00:00:00 0 /d [facility] Sex 2023-05-20 14:04:46 2023-05-20 14:04:46 Female (finding) Amy Jacinto - External Exposure to SARS-CoV-2 (event) 2022-04-20 00:00:00 2022-04-30 14:04:00 Not sure [facility] Cigarettes smoked current (pack per day) - Reported 2022-04-30 00:00:00 2022-04-30 00:00:00 [facility] Tobacco use and exposure 2022-04-30 00:00:00 2022-04-30 00:00:00 Smokeless tobacco non-user [facility] Tobacco Comment 2022-04-30 00:00:00 2022-04-30 00:00:00 Has too much stress to quit [facility] Cigarette pack-years 2022-04-30 00:00:00 2022-04-30 00:00:00 [facility] History SDOH Alcohol Frequency 2018-10-22 00:00:00 2018-10-22 00:00:00 1 [facility] Sex assigned at 1990 00:00:00 1990 00:00:00 F Amy Jacinto - External Smoking Status Start Date Stop Date Source Tobacco smoking consumption unknown Amy Jacinto - Ext ernal Smokes tobacco daily 2024-03-31 00:00:00 Amy Jacinto - External Medications Ordered Medication Name Filled Medication Name Start Date Stop Date Current Medication? Ordering Clinician Indication Dosage Frequency Signature (SIG) Comments Components Source Metronidazo le 500 MG oral Tablet 2023-04 00:00: 00 Yes 500mg Q.5D Take 1 tablet (500 mg total) by mouth 2 times daily. Amy Jacinto - Externa l hydrOXYzine HCl 10 MG oral Tablet 2023-04 2-05 00:00: 00 04-21 05:59 :00 Yes [id number] 10mg Q.[id number] 3D Take 1 tablet (10 mg total) by mouth 3 times daily as needed for anxiety for up to 20 days. Amy Colindres l benzonatate (TESSALON PERLVIK) capsule 200 mg 01-14 10:45: 00 01-14 10:46 :00 No 200mg 200 mg, Oral, ONCE, 1 dose, On Thu01/15/24 at 0545, JENNIFER [facility] benzonatate 200 mg capsule 01-14 00:00: 00 Yes [id number] 200mg Take 1 capsule by mouth 3 (three) times daily as needed for Cough. [facility] budesonide- formoteroL 80-4.5 mcg/actuati on inhaler 10-10 00:00: 00 Yes [id number] 2{puff} Inhale 2 Puffs in the morning and 2 Puffs in the evening. [facility] predniSONE 20 mg tablet 10-10 00:00: 00 10-18 04:59 :00 No [id number] 20mg Take 1 tablet by mouth in the morning for 7 days. [facility] TAKE 1 TABLET BY MOUTH AT BEDTIME NEEDED 08-24 00:00: 00 Yes Azam Raphael ketorolac (TORADOL) injection 30 mg 08-19 05:00: 00 08-19 04:39 :00 No 30mg 30 mg, Slow IV Push, ONCE NOW, 1 dose, On Thu08/20/23 at 0000, JENNIFER [facility] NaCl 0.9% (NS) bolus infusion 1,000 mL 08-19 05:00: 00 08-19 05:45 :00 No 1000mL at 999 mL/hr, 1,000 mL, IV Piggyback, ONCE, 1 dose, On Kya 08/20/23 at 0000, STAT [facility] diclofenac 75 mg EC tablet 08-19 00:00: 00 Yes [id number] 75mg Take 1 tablet by mouth in the morning and 1 tablet in the evening. Take with meals. [facility] hydroxyzine HCl 10 mg tablet 07-15 00:00: 00 Yes mg Azam Raphael hydrOXYzine HCl 10 MG oral Tablet 07-15 00:00: 00 03-31 00:00 :00 No [id number] 10mg Q.[id number] 3D Take 1 tablet (10 mg total) by mouth 3 times daily as needed for anxiety for up to 20 days. Amy Seybold - Externa l Mirtazapine 7.5 MG oral Tablet 00:00: 00 03-31 00:00 :00 No [id number] 7.5mg QD Take 1 tablet (7.5 mg total) by mouth nightly. Amy Hernandezold - Externa l 10 ML Q 4 TO 6 HOURS PRN COUGH FOR 5 DAYS 2022-04 00:00: 00 08-30 00:00 :00 No [id number] Azam Raphael ibuprofen (IBU) tablet 800 mg 2022-04 10:30: 00 03-03 09:33 :00 No 800mg 800 mg, Oral, ONCE, 1 dose, On Thu03/03/23 at 0430, Routine [facility] ibuprofen 800 mg tablet 2022-04 00:00: 00 Yes [id number] 800mg Take 1 tablet by mouth every 8 (eight) hours as needed for Alternate with Dumas for pain scale 1-3. [facility] KETOROLAC 10MG 2022-04 0-31 00:00: 00 [...] Yes Azam Raphael KETOROLAC 10 MG 2022-04 018 00:00: 00 Yes Azam Raphael CYCLOBENZAP R 5MG 01-14 00:00: 00 Yes Azam Raphael DICLOFEN SOD 50MG EC 01-14 00:00: 00 Yes Azam Raphael 1 CAPSULE TWICE A DAY 01-09 00:00: 00 08-30 00:00 :00 No 300 Azam Raphael 1 CAPSULE TWICE A DAY 01-08 00:00: 00 08-30 00:00 :00 No 300 Azam Raphael PREDNISONE 50MG - 00:00: 00 Yes Azam Raphael PREDNISONE 50 MG 12-03 00:00: 00 Yes 50 Azam Raphael PAXLOVID [id number] 0316-0 7-24 00:00: 00 Yes Azam Raphael 10 ML Q 4 TO 6 HOURS PRN COUGH FOR 5 DAYS 11-17 00:00: 00 08-30 00:00 :00 No [id number] Azam Raphael 300 MG NIRMATRELVI R (TWO 150 MG TABLETS) WITH 100 MG RITONAVIR (ONE 100 MG TABLET) WITH ALL THREE TABLETS TAKEN TOGETHER ORALLY TWICE DAILY FOR 5 DAYS. 11-17 00:00: 00 08-30 00:00 :00 No Azam Raphael TAKE 1 TABLET DAILY NEEDED. 11-17 00:00: 00 08-30 00:00 :00 No 10 Azam Raphael CLOBETASOL OIN 0.05% 11-11 00:00: 00 Yes Azam Raphael TAKE 1 TABLET DAILY. 11-08 00:00: 00 08-30 00:00 :00 No 50 Azam Raphael APPLY AND GENTLY MASSAGE INTO AFFECTED AREA(S) TWICE DAILY. 11-08 00:00: 00 08-30 00:00 :00 No 5 Azam Yoni Donavon METHYLPRED 10-20 00:00: 00 Yes Azam Vallejo Donavon TAKE 1 TABLET BY MOUTH TWICE DAILY UNTIL ALL TAKEN 10-20 00:00: 00 Yes 500 Azam Raphael APPLY DIRECTED. 10-20 00:00: 00 08-30 00:00 :00 No 2 Azam Raphael FOLLOW DIRECTIONS ON PACKAGE 10-20 00:00: 00 08-30 00:00 :00 No 4 Azam Raphael BUSPIRONE 6- 00:00: 00 Yes Azam Raphael QUETIAPINE 6-07 00:00: 00 Yes 25 Azam Raphael TAKE 1 TABLET BY MOUTH AT BEDTIME 0 5- 00:00: 00 Yes Azam Raphael TAKE 1 TABLET BY MOUTH TWICE DAILY 5- 00:00: 00 Yes Azam Raphael OLANZAPINE 4- 00:00: 00 Yes 15 Azam Raphael OLANZAPINE 3-02 00:00: 00 Yes 15 Azam Raphael OLANZAPINE 2-06 00:00: 00 Yes Azam Raphael TAKE 1 TABLET BY MOUTH TWICE DAILY 2-06 00:00: 00 Yes Azam Raphael METRONIDAZO L 1-17 00:00: 00 Yes Azam Raphael TAKE 1 CAPSULE BY MOUTH TWICE DAILY 1-12 00:00: 00 08-30 00:00 :00 No Azam Raphael No known medications 1-04 14:13: 57 No No known medication [facility] METRONIDAZO L 1-04 00:00: 00 Yes Azam Raphael BUSPIRONE 2021-04 1-11 00:00: 00 Yes Azam Raphael PREDNISONE 2021-04 1-09 00:00: 00 Yes Azam Raphael Dose Unknown 2021-04 0-27 00:00: 00 Yes Azam Raphael TAKE 1 CAPSULE BY MOUTH TWICE DAILY 2021-04 0-27 00:00: 00 No TAKE 1 TABLET BY MOUTH EVERY 8 HOURS WITH FOOD AND DRINK PLENTY OF WATER FOR PAIN 0 -13 00:00: 00 No TAKE 1 TABLET BY MOUTH EVERY 8 HOURS WITH FOOD AND DRINK PLENTY OF WATER FOR PAIN 0 - 00:00: 00 No TAKE 1 TABLET BY MOUTH EVERY 8 HOURS WITH FOOD AND DRINK PLENTY OF WATER FOR PAIN 2022-0 9-13 00:00: 00 2024- 05-06 00:00 :00 No Azam Raphael BUSPIRONE TAB [...] 10-24 14:15: 00 10-24 13:09 :00 No [id number] 80mL 80 mL, Intravenou s, ONCE, 1 dose, On Kya 10/24/21 at 0915, Routine [facility] ibuprofen 600 mg tablet 10-18 00:00: 00 Yes 1mg Azamaxel Raphael amoxicillin 500 mg capsule 10-18 00:00: 00 Yes 1mg Azam F Donavon ibuprofen 600 mg tablet 10-18 00:00: 00 [...] dose, On Thu09/23/21 at 1530, [facility] : TIMOTEO CISSE [facility] iopamidol (ISOVUE 370-500 mL) injection 100 mL 09-23 20:00: 00 09-23 20:15 :00 No [id number] 100mL 100 mL, Intravenou s, ONCE, 1 dose, On 09/23/21 at 1515, Routine [facility] ondansetron (ZOFRAN (PF)) injection 4 mg 09-23 19:45: 00 09-23 19:43 :00 No 4mg 4 mg, Slow IV Push, ONCE, 1 dose, On Thu09/23/21 at 1445, JENNIFER [facility] No known medications 09-23 13:33: 49 No [facility] metronidazo le 500 mg tablet 2022-0 4-25 00:00: 00 Yes 1mg Azam Raphael metronidazo le 500 mg tablet 0 4-25 00:00: 00 No 1mg metronidazo le 500 mg tablet 0 4-25 00:00: 00 No 1mg metronidazo le 500 mg tablet 0 425 00:00: 00 No 1mg Dose Unknown 0 4- 00:00: 00 Yes Azam Raphael Dose Unknown 0 4- 00:00: 00 No Dose Unknown 0 08-15 00:00: 00 No Dose Unknown 0 4 00:00: 00 No ProAir HFA 90 mcg/actuati on aerosol inhaler 0 4- 00:00: 00 Yes 1mcg/ac tuation Azam Raphael Ventolin HFA 90 mcg/actuati on aerosol inhaler 0 4- 00:00: 00 Yes 12mcg/a ctuatio n Azam Raphael HYDROXYZ HCL 0 4-13 00:00: 00 Yes 25 Azam Raphael ProAir HFA 90 mcg/actuati on aerosol inhaler 0 4- 00:00: 00 No 1mcg/ac tuation Ventolin [...] 125 mg tablet 0 3-21 00:00: 00 Yes 1mg Azam Raphael ibuprofen 600 mg tablet 0 3-21 00:00: 00 Yes 1mg Azam Raphael Dose Unknown 0 3-21 00:00: 00 Yes Azam Raphael Dose Unknown 0 3- 00:00: 00 Yes Azam Raphael Xopenex HFA 45 mcg/actuati on aerosol inhaler 0 3- 00:00: 00 No 1mcg/ac tuation sulfamethox azole 800 mg-trimetho prim 160 mg tablet 0 3- 00:00: 00 No 1mg amoxicillin 875 mg-potassiu m clavulanate 125 mg tablet 0 3- 00:00: 00 No 1mg ibuprofen 600 mg tablet 0 3- 00:00: 00 No 1mg Dose Unknown 0 3- 00:00: 00 No Dose Unknown 0 3- 00:00: 00 No Xopenex HFA 45 mcg/actuati on aerosol inhaler 0 3- 00:00: 00 No 1mcg/ac tuation sulfamethox azole 800 mg-trimetho prim 160 mg tablet 0 3- 00:00: 00 No 1mg amoxicillin 875 mg-potassiu m clavulanate 125 mg tablet 0 3- 00:00: 00 No 1mg ibuprofen 600 mg tablet 0 3- 00:00: 00 No 1mg Dose Unknown 0 3- 00:00: 00 No Dose Unknown 0 3-21 00:00: 00 No Dose Unknown 0 3-21 00:00: 00 No Dose Unknown 0 3-21 00:00: 00 No Dose Unknown 0 3-21 00:00: 00 No Dose Unknown 0 3-21 00:00: 00 No Dose Unknown 0 3-21 00:00: 00 No Dose Unknown 0 3-18 00:00: 00 Yes Azam Raphael Dose [...] Dose Unknown 2022-0 3-13 00:00: 00 No HYDROXYZ HCL 2-0 2-28 00:00: 00 Yes 25 Azam Raphael QUETIAPINE 2-0 2-28 00:00: 00 Yes 25 Azam Raphael Zyprexa 5 mg tablet 2-0 2-17 00:00: 00 Yes 1mg Azam Raphael Zyprexa 5 mg tablet 2-0 2-17 00:00: 00 No 1mg Zyprexa 5 mg tablet 2022-0 2-17 00:00: 00 No 1mg buspirone 15 mg tablet 2-0 2-11 00:00: 00 Yes 1mg Azam Raphael buspirone 15 mg tablet 2-0 2-11 00:00: 00 No 1mg buspirone 15 mg tablet 2022-0 2-11 00:00: 00 No 1mg ProAir HFA [...] 00:00: 00 No 1mg No known medications 1- 18:00: 03 No [facility] methylpredn isolone 4 mg tablets in [...] e weeks, then remove for 1 week. [facility] busPIRone 15 mg tablet 2018-04 00:00: 00 05-23 00:00 :00 No [id number] 15mg Take 1 tablet by mouth 2 (two) times daily. [facility] vitamin w/FA tablet 2018-04 00:00: 00 05-23 00:00 :00 No [id number] 1{tbl} Take 1 tablet by mouth daily. [facility] docusate calcium 240 mg capsule 2018-04 00:00: 00 05-23 00:00 :00 No [id number] 240mg Take 1 capsule by mouth once daily as needed for Constipati on. [facility] ferrous sulfate 325 mg (65 mg iron) tablet 2018-04 00:00: 00 05-23 00:00 :00 No [id number] 325mg Take 1 tablet by mouth 2 (two) times daily. [facility] ibuprofen 600 mg tablet 2018-04 00:00: 00 05-23 00:00 :00 No [id number] 600mg Take 1 tablet by mouth every 6 (six) hours as needed (Pain). Take with food or milk. [facility] Immunizations Ordered Immunization Name Filled Immunization Name Date Status Comments Source Tdap Tdap 2023-08-19 00:00:00 Completed Azam Raphael TDAP (ADACEL) VACCINE 2019-03-10 00:00:00 Completed [facility] TDAP (ADACEL) VACCINE 2019-03-10 00:00:00 Completed [facility] TDAP (ADACEL) VACCINE 2019-03-10 00:00:00 Completed [facility] TDAP (ADACEL) VACCINE 2019-03-10 00:00:00 Completed [facility] TDAP (ADACEL) VACCINE 2019-03-10 00:00:00 Completed [facility] TDAP (ADACEL) VACCINE 2019-03-10 00:00:00 Completed [facility] TDAP (ADACEL) VACCINE 2019-03-10 00:00:00 Completed [facility] TDAP (ADACEL) VACCINE 2019-03-10 00:00:00 Completed [facility] TDAP (ADACEL) VACCINE 2019-03-10 00:00:00 Completed [facility] TDAP (ADACEL) VACCINE 2019-03-10 00:00:00 Completed [facility] TDAP (ADACEL) VACCINE 2019-03-10 00:00:00 Completed [facility] TDAP (ADACEL) VACCINE 2019-03-10 00:00:00 Completed [facility] TDAP (ADACEL) VACCINE 2019-03-10 00:00:00 Completed [facility] Tdap Tdap 2019-03-10 00:00:00 Completed Azam Raphael MMR 2012-11-22 00:00:00 Completed [facility] MMR 2012-11-22 00:00:00 Completed [facility] MMR 2012-11-22 00:00:00 Completed [facility] MMR 2012-11-22 00:00:00 Completed [facility] MMR 2012-11-22 00:00:00 Completed [facility] MMR 2012-11-22 00:00:00 Completed [facility] MMR 2012-11-22 00:00:00 Completed [facility] MMR 2012-11-22 00:00:00 Completed [facility] MMR 2012-11-22 00:00:00 Completed [facility] MMR 2012-11-22 00:00:00 Completed [facility] MMR 2012-11-22 00:00:00 Completed [facility] MMR 2012-11-22 00:00:00 Completed [facility] MMR 2012-11-22 00:00:00 Completed [facility] Hep B, adult Hep B, adult 2012-11-22 00:00:00 Completed Azam Raphael MMR MMR 2012-11-22 00:00:00 Completed Azam Raphael HEPATITIS A 2012-10-19 00:00:00 Completed [facility] MMR 2012-10-19 00:00:00 Completed [facility] HEPATITIS A 2012-10-19 00:00:00 Completed [facility] MMR 2012-10-19 00:00:00 Completed [facility] HEPATITIS A 2012-10-19 00:00:00 Completed [facility] MMR 2012-10-19 00:00:00 Completed [facility] HEPATITIS A 2012-10-19 00:00:00 Completed [facility] MMR 2012-10-19 00:00:00 Completed [facility] HEPATITIS A 2012-10-19 00:00:00 Completed [facility] MMR 2012-10-19 00:00:00 Completed [facility] HEPATITIS A 2012-10-19 00:00:00 Completed [facility] MMR 2012-10-19 00:00:00 Completed [facility] HEPATITIS A 2012-10-19 00:00:00 Completed [facility] MMR 2012-10-19 00:00:00 Completed [facility] HEPATITIS A 2012-10-19 00:00:00 Completed [facility] MMR 2012-10-19 00:00:00 Completed [facility] HEPATITIS A 2012-10-19 00:00:00 Completed [facility] MMR 2012-10-19 00:00:00 Completed [facility] HEPATITIS A 2012-10-19 00:00:00 Completed [facility] MMR 2012-10-19 00:00:00 Completed [facility] HEPATITIS A 2012-10-19 00:00:00 Completed [facility] MMR 2012-10-19 00:00:00 Completed [facility] HEPATITIS A 2012-10-19 00:00:00 Completed [facility] MMR 2012-10-19 00:00:00 Completed [facility] HEPATITIS A 2012-10-19 00:00:00 Completed [facility] MMR 2012-10-19 00:00:00 Completed [facility] Hep A, adult Hep A, adult 2012-10-19 00:00:00 Completed Azam Raphael Hep B, adult Hep B, adult 2012-10-19 00:00:00 Completed Azam Raphael Tdap Tdap 2012-10-19 00:00:00 Completed Azam Raphael MMR MMR 2012-10-19 00:00:00 Completed Azam Raphael TDAP (ADACEL) VACCINE Unknown Completed [facility] HEPATITIS A Unknown [facility] MMR Unknown Completed [facility] TDAP (ADACEL) VACCINE Unknown Completed [facility] HEPATITIS A Unknown [facility] MMR Unknown Completed [facility] TDAP (ADACEL) VACCINE Unknown Completed [facility] HEPATITIS A [facility] TDAP (ADACEL) VACCINE Unknown Completed [facility] HEPATITIS A Unknown [facility] Completed [facility] TDAP (ADACEL) VACCINE Unknown Completed [facility] HEPATITIS A Unknown Completed [facility] MMR Unknown Completed [facility] TDAP (ADACEL) VACCINE Unknown Completed [facility] HEPATITIS A Unknown Completed [facility] MMR Unknown Completed [facility] TDAP (ADACEL) VACCINE Unknown Completed [facility] HEPATITIS A Unknown Completed [facility] MMR Unknown Completed [facility] TDAP (ADACEL) VACCINE Unknown Completed [facility] HEPATITIS A Unknown Completed [facility] MMR Unknown Completed [facility] TDAP (ADACEL) VACCINE Unknown Completed [facility] HEPATITIS A Unknown Completed [facility] MMR Unknown Completed [facility] TDAP (ADACEL) VACCINE Unknown Completed [facility] HEPATITIS A Unknown Completed [facility] MMR Unknown Completed [facility] TDAP (ADACEL) VACCINE Unknown Completed [facility] HEPATITIS A Unknown [facility] MMR Unknown Completed [facility] TDAP Unknown Completed [facility] HEPATITIS A Unknown Completed [facility] MMR Unknown Completed [facility] Vital Signs Vital Name Observation Time Observation Value Comments S ource Systolic blood pressure 2024-03-31 20:46:00 110 mm[Hg] Amy Jacinto - External Diastolic blood pressure 2024-03-31 20:46:00 70 mm[Hg] Amy Jacinto - External Heart rate 2024-03-31 20:46:00 102 /min Amy Jacinto - External Body temperature 2024-03-31 20:46:00 36.67 Diya Amy Jacinto - External Respiratory rate 2024-03-31 20:46:00 16 /min Amy Jacinto - External Body height 2024-03-31 20:46:00 165.1 cm Amy Jacinto - External Body weight 2024-03-31 20:46:00 43.999 kg Amy Jacinto - External BMI 2024-03-31 20:46:00 16.14 kg/m2 Amy Jacinto - External Oxygen saturation in Arterial blood by Pulse oximetry 2024-03-31 20:46:00 96 /min Amy Jacinto - External Systolic blood pressure 2024-01-15 08:08:00 134 mm[Hg] [facility] Diastolic blood pressure 2024-01-15 08:08:00 95 mm[Hg] [facility] Heart rate 2024-01-15 08:08:00 73 /min [facility] Body temperature 2024-01-15 08:08:00 37.28 Diya [facility] Respiratory rate 2024-01-15 08:08:00 16 /min [facility] Body height 2024-01-15 08:08:00 167.6 cm [facility] Body weight 2024-01-15 08:08:00 42.593 kg [facility] BMI 2024-01-15 08:08:00 15.16 kg/m2 [facility] Oxygen saturation in Arterial blood by Pulse oximetry 2024-01-15 08:08:00 99 /min [facility] Systolic blood pressure 2023-11-04 07:08:18 102 mm[Hg] [facility] Diastolic blood pressure 2023-11-04 07:08:18 82 mm[Hg] [facility] Heart rate 2023-11-04 07:08:18 87 /min [facility] Body temperature 2023-11-04 07:08:18 36.78 Diya [facility] Respiratory rate 2023-11-04 07:08:18 18 /min [facility] Body height 2023-11-04 07:05:00 167.6 cm [facility] Body weight 2023-11-04 07:05:00 44.135 kg [facility] BMI 2023-11-04 07:05:00 15.70 kg/m2 [facility] Oxygen saturation in Arterial blood by Pulse oximetry 2023-11-04 07:05:00 100 /min [facility] Respiratory Rate 2023-10-27 23:19:00 18 /min Body [...] Systolic blood pressure 2023-10-11 20:58:00 115 mm[Hg] [facility] Diastolic blood pressure 2023-10-11 20:58:00 89 mm[Hg] [facility] Heart rate 2023-10-11 20:58:00 81 /min [facility] Body temperature 2023-10-11 20:58:00 37.11 Diya [facility] Respiratory rate 2023-10-11 20:58:00 18 /min [facility] Oxygen saturation in Arterial blood by Pulse oximetry 2023-10-11 20:58:00 100 /min [facility] Body height 2023-10-11 17:28:00 167.6 cm [facility] Body weight 2023-10-11 17:28:00 42.638 kg [facility] BMI 2023-10-11 17:28:00 15.17 kg/m2 [facility] Heart rate 2023-08-20 05:00:00 100 /min [facility] Respiratory rate 2023-08-20 05:00:00 20 /min [facility] Oxygen saturation in Arterial blood by Pulse oximetry 2023-08-20 05:00:00 99 /min [facility] Systolic blood pressure 2023-08-20 04:10:00 133 mm[Hg] [facility] Diastolic blood pressure 2023-08-20 04:10:00 102 mm[Hg] [facility] Body height 2023-08-20 04:10:00 165.1 cm [facility] Body weight 2023-08-20 04:10:00 44.453 kg [facility] BMI 2023-08-20 04:10:00 16.31 kg/m2 [facility] Systolic blood pressure 2023-03-03 08:53:00 113 mm[Hg] [facility] Diastolic blood pressure 2023-03-03 08:53:00 91 mm[Hg] [facility] Heart rate 2023-03-03 08:53:00 93 /min [facility] Body temperature 2023-03-03 08:53:00 37.11 Diya [facility] Respiratory rate 2023-03-03 08:53:00 20 /min [facility] Body height 2023-03-03 08:53:00 165.1 cm [facility] Body weight 2023-03-03 08:53:00 45.36 kg [facility] BMI 2023-03-03 08:53:00 16.64 kg/m2 [facility] Oxygen saturation in Arterial blood by Pulse oximetry 2023-03-03 08:53:00 100 /min [facility] Systolic blood pressure 2022-04-30 20:12:00 148 mm[Hg] pt on the phone [facility] Diastolic blood pressure 2022-04-30 20:12:00 103 mm[Hg] pt on the phone [facility] Heart rate 2022-04-30 20:12:00 108 /min [facility] Systolic blood pressure 2021-09-23 23:07:54 117 mm[Hg] [facility] Diastolic blood pressure 2021-09-23 23:07:54 80 mm[Hg] [facility] Heart rate 2021-09-23 23:07:54 78 /min [facility] Respiratory rate 2021-09-23 23:07:54 18 /min [facility] Oxygen saturation in Arterial blood by Pulse oximetry 2021-09-23 23:07:54 98 /min [facility] Body temperature 2021-09-23 18:10:00 36.94 Diya [facility] Body height 2021-09-23 18:10:00 165.1 cm [facility] Body weight 2021-09-23 18:10:00 49.896 kg [facility] BMI 2021-09-23 18:10:00 18.30 kg/m2 [facility] BP Systolic 2023-08-26 15:42:00 110 mm[Hg] Azam Raphael BP Diastolic 2023-08-26 15:42:00 79 mm[Hg] Azam Raphael Weight Measured 2023-08-26 15:42:00 99.60 pounds Azam Raphael Height Measured 2023-08-26 15:42:00 65.00 inches Azam Raphael Body Temperature 2023-08-26 15:42:00 98.10 degrees Azam Raphael Heart Rate 2023-08-26 15:42:00 89.00 /min Azam Raphael Respiratory Rate 2023-08-26 15:42:00 18.00 /min Azam F Donavon BP Systolic 2023-08-19 15:48:00 120 mm[Hg] Azam F Donavon BP Diastolic 2023-08-19 15:48:00 79 mm[Hg] Azam F Donavon Weight Measured 2023-08-19 15:48:00 99.00 pounds Azam F Donavon Height Measured 2023-08-19 15:48:00 65.00 inches Azam F Donavno Body Temperature 2023-08-19 15:48:00 98.10 degrees Azam [...] Donavon Height Measured 2022-11-17 13:06:00 65.00 inches Zaam F Donavon Body Temperature 2022-11-17 13:06:00 97.30 degrees Azam F Donavon Heart Rate 2022-11-17 13:06:00 80.00 /min Azam F Donavon Respiratory Rate 2022-11-17 13:06:00 Zaam F Donavon BP Systolic 2022-07-08 14:33:00 136 [...] Measured 2022-04-25 10:09:00 65.00 inches Azam F Donaovn Body Temperature 2022-04-25 10:09:00 99.00 degrees Azam F Donavon Heart Rate 2022-04-25 10:09:00 91.00 /min Azam F Donavon Respiratory Rate 2022-04-25 10:09:00 18.00 /min Azam F Donavon BP Systolic 2022-03-05 09:57:00 Azam F Donavon BP Diastolic 2022-03-05 09:57:00 Azam F Donavon Weight Measured 2022-03-05 09:57:00 Azam F Donavon Height Measured 2022-03-05 09:57:00 Azam F Donavon Body Temperature 2022-03-05 09:57:00 Azam F Donavon Heart Rate 2022-03-05 09:57:00 Azam F Donavno Respiratory Rate 2022-03-05 09:57:00 Azam F Donavon [...] CHEST 2 VW 2023-10-11 18:21:26 Yun Sams [facility] CT CERVICAL SPINE WO CONTRAST 2023-10-11 18:17:39 Yun Sams [facility] CT HEAD WO CONTRAST 2023-10-11 18:14:53 Yun Sams [facility] XR HAND 3+ VW RIGHT 2023-08-20 04:38:41 Renata Bowen [facility] POCT TEST 2023-08-20 04:37:00 Renata Bowen [facility] ETHANOL 2023-08-20 04:36:00 Laurie Bowen [facility] NOTICE OF PRIVACY PRACTICES 2023-03-03 08:39:15 Doctor Unassigned, [place] [facility] CONSENT/REFUSAL FOR DIAGNOSIS AND TREATMENT 2023-03-03 08:36:34 Doctor Unassigned, [place] [facility] EXTERNAL PROVIDER RECORDS 2022-07-01 06:01:00 Doctor Unassigned, [place] [facility] AUTHORIZATION FOR RELEASE OF PHI 2021-11-25 05:01:00 Doctor Unassigned, [place] [facility] REFERRAL- REQUEST/RESPONSE 2021-11-11 05:01:00 Doctor Unassigned, [place] [facility] US PELVIS COMPLETE WITH TRANSVAGINAL 2021-10-24 13:17:52 Requisition, Paper [facility] CT THORAX W CONTRAST 2021-10-24 13:08:26 Requisition, Paper [facility] CT THORAX WO CONTRAST 2021-10-24 13:08:08 Requisition, Paper [facility] US PELVIS COMPLETE WITH TRANSVAGINAL 2021-09-23 22:52:01 Timoteo Cisse [facility] CT ABDOMEN PELVIS W CONTRAST 2021-09-23 20:02:13 Timoteo Cisse [facility] COMP. METABOLIC PANEL (75303) 2021-09-23 19:12:00 Timoteo Cisse [facility] CBC WITH DIFF 2021-09-23 19:12:00 Timoteo Cisse [facility] POCT TEST 2021-09-23 18:47:00 Timoteo Cisse [facility] URINALYSIS 2021-09-23 18:41:00 Timoteo Cisse [facility] NOTICE OF PRIVACY PRACTICES 2021-09-23 17:59:15 Doctor Unassigned, [place] [facility] CONSENT/REFUSAL FOR DIAGNOSIS AND TREATMENT 2021-09-23 17:59:01 Doctor Unassigned, [place] [facility] [id number] Colposcopy Cervix Bx Cervix endocrv Curtg 2021-08-29 00:00:00 Azam Raphael Therapeutic, prophylactic, or diagnostic injection; intravenous push, sing [facility] Therapeutic, prophylactic, or diagnostic injection; each additional sequen [facility] Plan of Care Planned Activity Planned Date Details Comments Source Goal Plan of Care Note [code = 35254-7] Goal Plan of Care Note [code = 17996-4] Goal Plan of Care Note [code = 55408-2] Goal Plan of Care Note [code = 96699-8] Goal Plan of Care Note [code = 64464-7] Goal Plan of Care Note [code = 26521-4] Goal Plan of Care Note [code = 99939-4] Goal Plan of Care Note [code = 09670-9] Goal Plan of Care Note [code = 12985-3] Goal Plan of Care Note [code = 47085-5] Goal Plan of Care Note [code = 85128-8] Goal Plan of Care Note [code = 19566-2] Goal Plan of Care Note [code = 06643-0] Goal Plan of Care Note [code = 25774-5] Goal Plan of Care Note [code = 38338-9] Goal Plan of Care Note [code = 20596-7] Goal Plan of Care Note [code = 74717-7] Goal Plan of Care Note [code = 08404-2] Goal Plan of Care Note [code = 97012-9] Goal Plan of Care Note [code = 73814-5] Goal Plan of Care Note [code = 29997-5] Goal Plan of Care Note [code = 15203-5] Goal Plan of Care Note [code = 12672-5] Goal Plan of Care Note [code = 91631-0] Goal Plan of Care Note [code = 87072-2] Goal Plan of Care Note [code = 90926-7] Goal Plan of Care Note [code = 24523-9] Goal Plan of Care Note [code = 81620-0] Goal Plan of Care Note [code = 56365-9] Goal Plan of Care Note [code = 16969-1] Goal Plan of Care Note [code = 00290-0] Goal Plan of Care Note [code = 08134-9] Goal Plan of Care Note [code = 06829-8] Goal Plan of Care Note [code = 42612-3] Goal Plan of Care Note [code = 66198-1] Goal Plan of Care Note [code = 89763-2] Goal Plan of Care Note [code = 74413-1] Goal Plan of Care Note [code = 00934-0] Goal Plan of Care Note [code = 52040-4] Goal Plan of Care Note [code = 19444-2] Goal Plan of Care Note [code = 52397-3] Goal Plan of Care Note [code = 86501-7] Goal Plan of Care Note [code = 90921-5] Goal Plan of Care Note [code = 55062-8] Goal Plan of Care Note [code = 60470-7] Goal Plan of Care Note [code = 70857-3] Goal Plan of Care Note [code = 31438-6] Goal Plan of Care Note [code = 49389-7] Goal Plan of Care Note [code = 94605-7] Goal Plan of Care Note [code = 31071-1] Goal Plan of Care Note [code = 35198-9] Goal Plan of Care Note [code = 34217-0] Goal Plan of Care Note [code = 07000-3] Goal Plan of Care Note [code = 05755-9] Goal Plan of Care Note [code = 68632-7] Goal Plan of Care Note [code = 98580-4] Goal Plan of Care Note [code = 61881-5] Goal Plan of Care Note [code = 72784-6] Goal Plan of Care Note [code = 15706-0] Goal Plan of Care Note [code = 40001-6] Goal Plan of Care Note [code = 03002-7] Goal Plan of Care Note [code = 87450-8] Goal Plan of Care Note [code = 01171-8] Goal Plan of Care Note [code = 46095-7] Goal Plan of Care Note [code = 87205-2] Goal Plan of Care Note [code = 42213-5] Goal Plan of Care Note [code = 95523-1] Goal Plan of Care Note [code = 28852-9] Goal Plan of Care Note [code = 15498-5] Goal Plan of Care Note [code = 05671-0] Goal Plan of Care Note [code = 43248-4] Goal Plan of Care Note [code = 39903-6] Goal Plan of Care Note [code = 11408-1] Goal Plan of Care Note [code = 49585-8] Goal Plan of Care Note [code = 79615-6] Goal Plan of Care Note [code = 37284-4] Goal Plan of Care Note [code = 32341-9] Goal Plan of Care Note [code = 15725-2] Goal Plan of Care Note [code = 65208-5] Goal Plan of Care Note [code = 32567-8] Goal Plan of Care Note [code = 85657-7] Goal Plan of Care Note [code = 37674-6] Goal Plan of Care Note [code = 75043-1] Goal Plan of Care Note [code = 49954-6] Goal Plan of Care Note [code = 12814-6] Goal Plan of Care Note [code = 21581-8] Goal Plan of Care Note [code = 05349-0] Goal Plan of Care Note [code = 32910-8] Goal Plan of Care Note [code = 96214-1] Goal Plan of Care Note [code = 37133-3] Goal Plan of Care Note [code = 40677-8] Goal Plan of Care Note [code = 64898-3] Goal Plan of Care Note [code = 94806-3] Goal Plan of Care Note [code = 70086-3] Goal Plan of Care Note [code = 83294-0] Goal Plan of Care Note [code = 71646-0] Goal Plan of Care Note [code = 12562-8] Goal Plan of Care Note [code = 46062-9] Goal Plan of Care Note [code = 32494-0] Goal Plan of Care Note [code = 39119-1] Goal Plan of Care Note [code = 67443-2] Goal Plan of Care Note [code = 35796-6] Goal Plan of Care Note [code = 85356-8] Goal Plan of Care Note [code = 97517-7] Goal Plan of Care Note [code = 01002-5] Goal Plan of Care Note [code = 67194-6] Goal Plan of Care Note [code = 46873-0] Goal Plan of Care Note [code = 20293-4] Goal Plan of Care Note [code = 97744-2] Goal Plan of Care Note [code = 46141-7] Goal Plan of Care Note [code = 79320-2] Goal Plan of Care Note [code = 40377-0] Goal Plan of Care Note [code = 52790-3] Goal Plan of Care Note [code = 22107-7] Goal Plan of Care Note [code = 42430-7] Goal Plan of Care Note [code = 90773-6] Goal Plan of Care Note [code = 90192-6] Goal Plan of Care Note [code = 34693-6] Goal Plan of Care Note [code = 74117-4] Goal Plan of Care Note [code = 01874-9] Goal Plan of Care Note [code = 49863-5] Goal Plan of Care Note [code = 50349-3] Goal Plan of Care Note [code = 21811-4] Goal Plan of Care Note [code = 59236-5] Goal Plan of Care Note [code = 10970-6] Goal Plan of Care Note [code = 08157-2] Goal Plan of Care Note [code = 30717-0] Goal Plan of Care Note [code = 53074-5] Goal Plan of Care Note [code = 62416-2] Goal Plan of Care Note [code = 05701-9] Goal Plan of Care Note [code = 23385-7] Goal Plan of Care Note [code = 75654-5] Goal Plan of Care Note [code = 08731-9] Goal Plan of Care Note [code = 14443-5] Goal Plan of Care Note [code = 30864-6] Goal Plan of Care Note [code = 19374-0] Goal Plan of Care Note [code = 21344-7] Goal Plan of Care Note [code = 74154-7] Goal Plan of Care Note [code = 32354-3] Goal Plan of Care Note [code = 11379-3] Goal Plan of Care Note [code = 25942-6] Goal Plan of Care Note [code = 14592-4] Goal Plan of Care Note [code = 75075-6] Goal Plan of Care Note [code = 15152-1] Goal Plan of Care Note [code = 47232-9] Goal Plan of Care Note [code = 03838-9] Goal Plan of Care Note [code = 57390-2] Goal Plan of Care Note [code = 58674-0] Encounters Start Date/Time End Date/Time Encounter Type Admission Type Attending [facility] Care Department Encounter ID Source 2021-02-23 16:17:01 Emergency [facility] [id number] [facility] 2021-02-22 13:07:11 Emergency X YANICK LYLE [facility] SPL [id number] [facility] 2024-03-31 16:15:00 2024-03-31 16:15:00 Outpatient LABTalon MCINTYRE [id number] Amy Jacinto 2024-03-31 14:45:00 2024-03-31 14:45:00 Outpatient [place] [id number] Amy Jacinto 2024-03-29 14:00:00 2024-03-29 14:00:00 Outpatient AMY MCINTYRE [id number] Amy Jacinto 2024-01-15 03:23:00 2024-01-15 06:16:00 Emergency X GUILHERME WILDER WAKILI [facility] ERT [id number] [facility] 2024-01-15 03:23:00 2024-01-15 06:16:00 Emergency Guilherme Wilder [facility] 1.2.840.114 350.1.13.10 4.2.7.2.686 [id number] [facility] 2023-12-12 19:45:00 2023-12-12 19:45:00 Outpatient AMY MCINTYRE [id number] Amy Solorzanojimmydenise 2023-11-04 02:12:00 2023-11-04 05:20:00 Emergency X [facility] ERT [id number] [facility] 2023-11-04 02:12:00 2023-11-04 05:20:00 Emergency [facility] 1.2.840.114 350.1.13.10 4.2.7.2.686 [id number] [facility] 2023-10-27 22:19:00 2023-10-28 00:48:00 Emergency E HEATHERPIOTR Lara [id number] [facility] [id number] Midpilaras t Igor 2023-10-27 22:19:00 2023-10-28 00:48:00 Outpatient [id number] 2023-10-27 22:19:00 2023-10-27 22:19:00 Abrasion, right knee, initial encounter 10/27/2023 SNOMED-CT 1.3.6.1.4 .1.70465 1.3.6.1.4.1 .25895 [id number] 2023-10-11 12:30:00 2023-10-11 15:59:00 Emergency X YUN SAMS ROBERT [facility] ERT [id number] [facility] 2023-10-11 12:30:00 2023-10-11 15:59:00 Emergency Yun Sasm [facility] 1.2.840.114 350.1.13.10 4.2.7.2.686 [id number] [facility] 2023-08-26 15:32:57 2023-08-26 15:32:57 Outpatient [facility] [id number] Azam Raphael 2023-08-26 00:00:00 2023-08-26 00:00:00 Outpatient Visit [facility] [id number] Azam Raphael 2023-08-19 23:06:00 2023-08-20 01:04:00 Emergency X NELSONLAURIE VAZ [facility] ERT [id number] [facility] 2023-08-19 23:06:00 2023-08-20 01:04:00 Emergency Azam Rooney [facility] 1.2.840.114 350.1.13.10 4.2.7.2.686 [id number] [facility] 2023-08-19 00:00:00 2023-08-19 00:00:00 Outpatient Visit [facility] [id number] Azam Raphael 2023-08-14 10:21:08 2023-08-14 10:21:08 Outpatient [facility] [id number] Azam Raphael 2023-08-14 00:00:00 2023-08-14 00:00:00 Outpatient Visit S[facility] [id number] Azam Raphael 2023-07-30 09:00:00 2023-07-30 09:00:00 Outpatient CHASITY SALVADORSEY AMY [id number] Amy [facility] 2023-07-16 18:15:00 2023-07-16 18:15:00 Outpatient PONCEDIANN DOMINGUEZ AMY MCINTYRE [id number] Amy [facility] 2023-07-16 17:55:00 2023-07-16 17:55:00 Outpatient ELLIOT CAMEJO [id number] [facility] 2023-06-25 10:15:00 2023-06-25 10:15:00 Outpatient MAYNOR SAMUEL AMY MCINTYRE [id number] Amy [facility] 2023-06-22 10:12:02 2023-06-22 10:12:02 Outpatient SFA [facility] [id number] Azam Raphael 2023-06-18 16:35:48 2023-06-18 16:35:48 Outpatient SFA [facility] [id number] Azam Raphael 2023-06-18 00:00:00 2023-06-18 00:00:00 Outpatient Visit SFA [id number] Azam Raphael 2023-06-08 14:44:09 2023-06-08 14:44:09 Outpatient SFA [facility] [id number] Azam Raphael 2023-06-04 10:48:04 2023-06-04 10:48:04 Outpatient SFA [facility] [id number] Azam Raphael 2023-05-25 08:44:02 2023-05-25 08:44:02 Outpatient SFA [facility] [id number] Azam Raphael 2023-04-21 13:55:33 2023-04-21 13:55:33 Outpatient SFA [facility] [id number] Azam Raphael 2023-04-02 17:25:25 2023-04-02 17:25:25 Outpatient SFA [facility] [id number] Azam Raphael 2023-03-03 02:58:00 2023-03-03 03:49:00 Emergency X GUILHERME WILDER [facility] [id number] [facility] 2023-03-03 02:58:00 2023-03-03 03:49:00 Emergency Guilherme iWlder [facility] 1.840.114 350.1.13.10 4.2.7.2.686 [id number] [facility] 2023-01-07 13:16:59 2023-01-07 13:16:59 Outpatient SFA SFA [id number] Azam Raphael 2022-12-03 19:26:04 2022-12-03 19:26:04 Outpatient SFA S[facility] [id number] Azam Vallejo [place] 2022-11-17 13:05:19 2022-11-17 13:05:19 Outpatient SFA [facility] [id number] Azam Raphael 2022-11-10 10:41:21 2022-11-10 10:41:21 Outpatient SFA S[facility] [id number] Azam Raphael 2022-11-08 14:16:42 2022-11-08 14:16:42 Outpatient SFA SFA [id number] Azam Vallejo [place] 2022-10-31 14:26:52 2022-10-31 14:26:52 Outpatient SFA SFA [id number] Azam Vallejo [place] 2022-10-27 11:18:15 2022-10-27 11:18:15 Outpatient SFA SFA [id number] Azam Vallejo [place] 2022-10-24 15:42:10 2022-10-24 15:42:10 Outpatient SFA SFA [id number] Azam Vallejo [place] 2022-07-08 14:24:41 2022-07-08 14:24:41 Outpatient SFA SFA [id number] Azam Vallejo [place] 2022-07-01 00:00:00 2022-07-01 00:00:00 Orders Only Doctor Unassigned, [place] [facility] 1..840.114 350.1.13.10 4.2.7.2.686 [id number] [facility] 2022-05-07 00:00:00 2022-05-07 00:00:00 [facility] 1.2.840.114 350.1.13.10 4.2.7.2.686 [id number] [facility] 2022-05-05 00:00:00 2022-05-05 00:00:00 Telephone [facility] 1.2.840.114 350.1.13.10 4.2.7.2.686 [id number] [facility] 2022-05-01 16:00:00 2022-05-01 16:00:00 Outpatient RIVERA RIVERA [facility] [id number] [facility] 2022-04-30 14:30:00 2022-04-30 14:30:00 Office Visit SubramanianCathie schwartz [facility] 1.2.840.114 350.1.13.10 4.2.7.2.686 [id number] [facility] 2022-04-30 14:30:00 2022-04-30 14:22:11 Outpatient R CATHIE SUBRAMANIAN [facility] [id number] [facility] 2022-04-29 14:00:00 2022-04-29 14:00:00 Outpatient RIVERA RIVERA [facility] [id number] [facility] 2022-04-29 00:00:00 2022-04-29 00:00:00 Telephone Rivera Pink [facility] 1.2.840.114 350.1.13.10 4.2.7.2.686 [id number] [facility] 2022-04-28 00:00:00 2022-04-28 00:00:00 Telephone SubramanianCathie schwartz [facility] 1.2.840.114 350.1.13.10 4.2.7.2.686 [id number] [facility] 2022-04-25 10:00:19 2022-04-25 10:00:19 Outpatient [facility] [id number] Azam Raphael 2022-04-01 14:00:00 2022-04-01 14:00:00 Outpatient JESSE SHIELDS [facility] [id number] [facility] 2022-03-27 13:30:00 2022-03-27 13:30:00 Outpatient JESSE SHIELDS [facility] [id number] [facility] 2022-03-05 00:00:00 2022-03-05 00:00:00 Outpatient Visit [id number] 2022-02-14 09:30:00 2022-02-14 09:30:00 Outpatient ERICA MELENDEZ [facility] [id number] [facility] 2022-02-13 13:45:00 2022-02-13 13:45:00 Outpatient [facility] [id number] Azam Raphael 2022-02-13 00:00:00 2022-02-13 00:00:00 Outpatient Visit [id number] 2021-11-25 00:00:00 2021-11-25 00:00:00 Orders Only Doctor Unassigned, [place] [facility] 1.2.840.114 350.1.13.10 4.2.7.2.686 [id number] [facility] 2021-11-11 00:00:00 2021-11-11 00:00:00 Orders Only Doctor Unassigned, [place] [facility] 1.2.840.114 350.1.13.10 4.2.7.2.686 [id number] [facility] 2021-10-30 00:00:00 2021-10-30 00:00:00 Outpatient Visit [id number] 2021-10-24 07:29:35 2021-10-24 23:59:00 Outpatient R RADIOLOGY [facility] [id number] [facility] 2021-10-24 07:29:35 2021-10-24 23:59:00 Hospital Encounter Radiology [facility] ([facility]) 1.2.840.114 350.1.13.10 4.2.7.2.686 [id number] [facility] 2021-10-24 07:28:55 2021-10-24 07:28:55 Hospital Encounter Radiology [facility] ([facility]) 1.2.840.114 350.1.13.10 4.2.7.2.686 [id number] [facility] 2021-10-24 07:28:21 2021-10-24 07:28:21 Hospital Encounter Radiology [facility] ([facility]) 1.2.840.114 350.1.13.10 4.2.7.2.686 [id number] [facility] 2021-10-24 00:00:00 2021-10-24 00:00:00 Outpatient R RADIOLOGY [facility] [id number] [facility] 2021-09-24 00:00:00 2021-09-24 00:00:00 Patient Secure Msg Doctor Unassigned, [place] [facility] 1.2840.114 350.1.13.10 4.2.7.2.686 [id number] [facility] 2021-09-23 13:12:00 2021-09-23 18:47:00 Emergency X TIMOTEO CISSE [facility] ERT [id number] [facility] 2021-09-23 13:12:00 2021-09-23 18:47:00 Emergency Timoteo Cisse S [facility] 1.2.840.114 350.1.13.10 4.2.7.2.686 [id number] [facility] 2021-09-23 00:00:00 2021-09-23 00:00:00 Orders Only Doctor Unassigned, [place] [facility] 1.284.114 350.1.13.10 4.2.7.2.686 [id number] [facility] 2021-01-07 00:00:00 2021-01-07 00:00:00 Patient Secure Msg Hortencia Karen [facility] 1..840.114 350.1.13.10 4.2.7.2.686 [id number] [facility] 2021-01-03 15:45:00 2021-01-03 15:45:00 Outpatient R [facility] [id number] [facility] 2020-08-09 00:00:00 2020-08-09 00:00:00 Outpatient R HORTENCIA KAREN [facility] [id number] [facility] 2020-06-18 10:00:00 2020-06-18 10:00:00 Outpatient R [facility] [id number] [facility] 2020-06-15 00:00:00 2020-06-15 00:00:00 Patient Secure Msg Jesse Dong [facility] 1..840.114 350.1.13.10 4.2.7.2.686 [id number] [facility] 2020-05-23 14:45:00 2020-05-23 14:45:00 Outpatient R KAREN BURNETT [facility] [id number] [facility] 2020-05-17 00:00:00 2020-05-17 00:00:00 Patient Secure Msg Doctor Unassigned, [place] [facility] 1..114 350.1.13.10 4.2.7.2.686 [id number] [facility] 2020-05-15 13:00:00 2020-05-15 13:00:00 Outpatient R [facility] [id number] [facility] 2020-05-11 13:30:00 2020-05-11 13:30:00 Outpatient R [facility] [id number] [facility] 2020-05-09 10:30:00 2020-05-09 10:30:00 Outpatient R KAREN BURNETT [facility] [id number] [facility] 2020-04-13 00:00:00 2020-04-13 00:00:00 Patient Secure Msg Doctor Unassigned, [place] [facility] 1.114 350.1.13.10 4.2.7.2.686 [id number] [facility] 2020-04-12 00:00:00 2020-04-12 00:00:00 Patient Secure Msg Doctor Unassigned, [place] [facility] STAFF RADIOGRAPHER [facility] 1..114 350.1.13.10 4.2.7.2.686 [id number] [facility] 2020-04-11 00:00:00 2020-04-11 00:00:00 Patient Secure Msg Doctor Unassigned, [place] [facility] 1..114 350.1.13.10 4.2.7.2.686 [id number] [facility] 2020-04-04 09:45:00 2020-04-04 09:45:00 Outpatient R BRYN BRADLEY [facility] [id number] [facility] 2019-12-28 09:15:00 2019-12-28 09:15:00 Outpatient R MARYJANECHAGO YANICK [facility] [id number] [facility] 2019-12-28 05:38:00 2019-12-28 05:38:00 [facility] [id number] [facility] 2019-12-09 09:26:00 2019-12-09 09:26:00 Outpatient [facility] [id number] [facility] 2019-08-04 13:30:00 2019-08-04 13:30:00 Outpatient R [facility] [id number] [facility] 2019-07-25 08:00:00 2019-07-25 08:00:00 Outpatient R AMIRA Hauser [facility] [id number] [facility] 2019-07-18 14:00:00 2019-07-18 14:00:00 Outpatient R [facility] [id number] [facility] 2019-07-18 10:00:00 2019-07-18 10:00:00 [facility] [id number] [facility] 2019-07-11 15:00:00 2019-07-11 15:00:00 Outpatient R JESSE DONG [facility] [id number] [facility] 2019-06-20 11:00:00 2019-06-20 11:00:00 Outpatient KAREN KEN [facility] [id number] [facility] 2019-05-10 08:56:42 2019-05-10 23:59:00 Outpatient CARL RIVERA [facility] [id number] [facility] 2019-04-28 14:00:00 2019-04-28 14:00:00 Outpatient P AMNA CLARK [facility] [id number] [facility] 2019-04-18 15:00:00 2019-04-18 16:35:19 Outpatient P RUSTAM THRASHER [facility] [id number] [facility] 2019-04-14 15:30:00 2019-04-14 16:09:05 Outpatient P CHRISISRAEL CHRISISRAEL [facility] [id number] [facility] 2019-04-07 09:30:00 2019-04-07 14:57:02 Outpatient P LENNOX CABRERA [facility] [id number] [facility] 2019-01-27 15:00:00 2019-01-27 15:00:00 Outpatient P RUSTAM THRASHER [facility] [id number] [facility] 2019-01-26 14:30:00 2019-01-26 14:25:24 Outpatient P MORRISONAZEB [facility] [id number] [facility] 2018-12-30 10:00:00 2018-12-30 11:14:24 Outpatient P AMNA CLARK [facility] [id number] [facility] 2018-12-29 10:45:00 2018-12-29 10:45:00 Outpatient P NISH GLOVER [facility] [id number] [facility] Results Test Description Test Time Test Comments Results Result Comments Source XR CHEST 2 2023-09-26 6 20:03:16 EXAM: XR CHEST 2 [...] and soft tissues: No acute osseous abnormality. [facility] CT HEAD WO CONTRAST 2023-09-26 6 [...] is intact. The intervertebraldisc spaces are preserved. [facility] CT CERVICAL SPINE WO CONTRAST 2023-09-26 [...] is intact. The intervertebraldisc spaces are preserved. [facility] Azam F AustinCT/NG, NAAT, [id number] 00:00:00* Test Item Value Reference Range Interpretation Comme nts CHLAMYDIA, NAAT, URINE (test code = 82691) NEGATIVE GONORRHEA, NAAT, URINE (test code = 97516) NEGATIVE Azam RaphaelVAGINAL PATHOGENS DNA [id number] 00:00:00* Test Item Value Reference Range Interpretation Comme nts DWIGHT SPECIES (test code = 54439) NEGATIVE G. VAGINALIS (test code = 74871) NEGATIVE T. VAGINALIS (test code = 20588) NEGATIVE Azam RaphaelCT/NG, NAAT, [id number] 00:00:00* Test Item Value Reference Range Interpretation Comme nts CHLAMYDIA, NAAT, URINE (test code = 41583) NEGATIVE GONORRHEA, NAAT, URINE (test code = 67420) NEGATIVE Azam RaphaelXR HAND 3+ VW [id number] 05:21:49Ordering physician: LAURIE BOWEN INDICATION: Right hand injury COMPARISON: None FINDINGS: 3 views of the right hand. No acute fracture or dislocation isappreciated. There is apparent bony remodeling of the fifth metacarpal,possibly reflecting healed remote fracture.[facility] [id number] 04:37:00* Test Item Value Reference Range Interpretation Comme nts POCT PREG (test code = 1605) Negative On board controls acceptable with C Line (test code = 3574) Yes POCT PREG LOT # (test code = 3575) [id number] POCT PREG TEST DATE ( test code = 3576) 06/03/2024 Lab Interpretation (test cod e = 99564-9) [facility] [id number] 00:00:00* Test Item Value Reference Range Interpretation [...] ABS NUCLEATED RBCS (test cod e = 65144) 0.00 K/UL Azam RaphaelCOMPREHENSIVE METABOLIC [id number] 00:00:00* Test Item Value Reference Range Interpretation Comme nts GLUCOSE (test code = 2217) 110 MG/DL BUN (test code = 2208) 17 MG/DL CREATININE (test code = 2214) 0.72 MG/DL eGFR (2020 CKD-EPI) (test code = 57646) 112 ML/MIN/1.73 CALC BUN/CREAT (test code = [...] 15 U/L Azam RaphaelTSH REFLEX TO FREE [id number] 00:00:00* Test Item Value Reference Range Interpretation Comme nts TSH REFLEX TO FREE T4 (test code = 2834) 0.703 UIU/ML Azam RaphaelHIV 1/2 4TH GEN, RFLX [id number] 00:00:00* Test Item Value Reference Range Interpretation Comme nts HIV 1/2 4TH GEN, RFLX CONF ( test code = 3514) NON-REACTIVE Azam RaphaelRPR REFLEX TO T. PALLIDUM - [id number] 00:00:00* Test Item Value Reference Range Interpretation Comme nts RPR (test code = 86930) NON-REACTIVE RPR TITER (test code = 3500) [...] (NOTE) INTERPRETATION HEPATITIS B: (test code = 00535) (NOTE) INTERPRETATION HEPATITIS C: (test code = 78632) (NOTE) Azam RaphaelHEPATITIS A IgM [REFLEX]2023-08-15 00:00:00* Test Item Value Reference Range Interpretation Comme nts HEPATITIS A IgM (test code = 2728) NON-REACTIVE Azam RaphaelLIPID [id number] 00:00:00* Test Item Value Reference Range Interpretation Comme nts CHOLESTEROL (test code = 2210) 184 MG/DL TRIGLYCERIDES (test code = 2232) 69 MG/DL HDL CHOLESTEROL (test code = 2220) 67 MG/DL CALC LDL CHOL (test code = 2237) 101 MG/DL RISK RATIO LDL/HDL (test cod e = 2238) 1.51 RATIO Azam RaphaelCBC W/AUTO [id number] 00:00:00* Test Item Value Reference Range Interpretation [...] ABS NUCLEATED RBCS (test cod e = 08516) 0.00 K/UL Azam RaphaelCOMPREHENSIVE METABOLIC [id number] 00:00:00* Test Item Value Reference Range Interpretation Comme nts GLUCOSE (test code = 2217) 110 MG/DL BUN (test code = 2208) 17 MG/DL CREATININE (test code = 2214) 0.72 MG/DL eGFR (2020 CKD-EPI) (test code = 66388) 112 ML/MIN/1.73 CALC BUN/CREAT (test code = [...] 15 U/L Azam RaphaelTSH REFLEX TO FREE [id number] 00:00:00* Test Item Value Reference Range Interpretation Comme nts TSH REFLEX TO FREE T4 (test code = 2834) 0.703 UIU/ML Azam RaphaelHIV 1/2 4TH GEN, RFLX [id number] 00:00:00* Test Item Value Reference Range Interpretation Comme nts HIV 1/2 4TH GEN, RFLX CONF ( test code = 3514) NON-REACTIVE Azam RaphaelRPR REFLEX TO T. PALLIDUM - [id number] 00:00:00* Test Item Value Reference Range Interpretation Comme nts RPR (test code = 41822) NON-REACTIVE RPR TITER (test code = 3500) [...] (NOTE) INTERPRETATION HEPATITIS B: (test code = 92533) (NOTE) INTERPRETATION HEPATITIS C: (test code = 54410) (NOTE) Azam RaphaelHEPATITIS A IgM [REFLEX]2023-08-15 00:00:00* Test Item Value Reference Range Interpretation Comme nts HEPATITIS A IgM (test code = 2728) NON-REACTIVE Azam RaphaelLIPID [id number] 00:00:00* Test Item Value Reference Range Interpretation Comme nts CHOLESTEROL (test code = 2210) 184 MG/DL TRIGLYCERIDES (test code = 2232) 69 MG/DL HDL CHOLESTEROL (test code = 2220) 67 MG/DL CALC LDL CHOL (test code = 2237) 101 MG/DL RISK RATIO LDL/HDL (test cod e = 2238) 1.51 RATIO Azam RaphaelCBC W/AUTO [id number] 00:00:00* Test Item Value Reference Range Interpretation [...] ABS NUCLEATED RBCS (test cod e = 40240) 0.00 K/UL Azam RaphaelCOMPREHENSIVE METABOLIC [id number] 00:00:00* Test Item Value Reference Range Interpretation Comme nts GLUCOSE (test code = 2217) 110 MG/DL BUN (test code = 2208) 17 MG/DL CREATININE (test code = 2214) 0.72 MG/DL eGFR (2020 CKD-EPI) (test code = 33336) 112 ML/MIN/1.73 CALC BUN/CREAT (test code = [...] (test code = 2219) 15 U/L Azam Vallejo DonavonTSH REFLEX TO FREE [id number] 00:00:00* Test Item Value Reference Range Interpretation Comme nts TSH REFLEX TO FREE T4 (test code = 2834) 0.703 UIU/ML Azam Vallejo DonavonHIV 1/2 4TH GEN, RFLX [id number] 00:00:00* Test Item Value Reference Range Interpretation Comme nts HIV 1/2 4TH GEN, RFLX CONF ( test code = 3514) NON-REACTIVE Azam RaphaelRPR REFLEX TO T. PALLIDUM - [id number] 00:00:00* Test Item Value Reference Range Interpretation Comme nts RPR (test code = 45478) NON-REACTIVE RPR TITER (test code = 3500) NOT INDIC. TITER Azam Vallejo YosiPATITIS PROFILE (A,B,C)2023-08-15 00:00:00* Test Item Value Reference Range Interpretation Comme nts HEPATITIS A TOTAL AB (test c ode = 2725) REACTIVE HEPATITIS B SURF AG (test co de = 2739) NON-REACTIVE HEP B CORE TOTAL AB (test co de = 2729) NON-REACTIVE HEPATITIS B SURFACE AB (test code = 2737) REACTIVE HEPATITIS C ANTIBODY (test c ode = 9175) NON-REACTIVE INTERPRETATION HEPATITIS A: (test code = 2552) (NOTE) INTERPRETATION HEPATITIS B: (test code = 51616) (NOTE) INTERPRETATION HEPATITIS C: (test code = 37368) (NOTE) Azam Vallejo DonavonHEPATITIS A IgM [REFLEX]2023-08-15 00:00:00* Test Item Value Reference Range Interpretation Comme nts HEPATITIS A IgM (test code = 2728) NON-REACTIVE Azam RaphaelLIPID [id number] 00:00:00* Test Item Value Reference Range Interpretation Comme nts CHOLESTEROL (test code = 2210) 184 MG/DL TRIGLYCERIDES (test code = 2232) 69 MG/DL HDL CHOLESTEROL (test code = 2220) 67 MG/DL CALC LDL CHOL (test code = 2237) 101 MG/DL RISK RATIO LDL/HDL (test cod e = 2238) 1.51 RATIO Azam RaphaelCBC W/AUTO [id number] 00:00:00* Test Item Value Reference Range Interpretation [...] ABS NUCLEATED RBCS (test cod e = 20854) 0.00 K/UL Azam RaphaelCOMPREHENSIVE METABOLIC [id number] 00:00:00* Test Item Value Reference Range Interpretation Comme nts GLUCOSE (test code = 2217) 110 MG/DL BUN (test code = 2208) 17 MG/DL CREATININE (test code = 2214) 0.72 MG/DL eGFR (2020 CKD-EPI) (test code = ) 112 ML/MIN/1.73 CALC BUN/CREAT (test code = 2235) 24 RATIO SODIUM (test code = 223) 137 MEQ/L POTASSIUM (test code = 2228) 4.2 MEQ/L CHLORIDE (test code = 2215) 100 MEQ/L CARBON DIOXIDE (test code = 2206) 21 MEQ/L CALCIUM (test code = 2209) 10.6 MG/DL PROTEIN, TOTAL (test code = 222) 7.6 G/DL ALBUMIN (test code = 220) 5.1 G/DL CALC GLOBULIN (test code = 2240) 2.5 G/DL CALC A/G RATIO (test code = 2234) 2.0 RATIO BILIRUBIN, TOTAL (test code = 2206) 0.3 MG/DL ALKALINE PHOSPHATASE (test code = 220) 107 U/L AST (test code = 2218) 22 U/L ALT (test code = 2219) 15 U/L Azam RaphaelTSH REFLEX TO FREE [id number] 00:00:00* Test Item Value Reference Range Interpretation Comme nts TSH REFLEX TO FREE T4 (test code = 2834) 0.703 UIU/ML Azam RaphaelHIV 1/2 4TH GEN, RFLX [id number] 00:00:00* Test Item Value Reference Range Interpretation Comme nts HIV 1/2 4TH GEN, RFLX CONF ( test code = 3514) NON-REACTIVE Azam RaphaelRPR REFLEX TO T. PALLIDUM - [id number] 00:00:00* Test Item Value Reference Range Interpretation Comme nts RPR (test code = 94664) NON-REACTIVE RPR TITER (test code = 3500) [...] (NOTE) INTERPRETATION HEPATITIS B: (test code = 02478) (NOTE) INTERPRETATION HEPATITIS C: (test code = 95317) (NOTE) Azam RaphaelHEPATITIS A IgM [REFLEX]2023-08-15 00:00:00* Test Item Value Reference Range Interpretation Comme nts HEPATITIS A IgM (test code = 2728) NON-REACTIVE Azam Vallejo AustinLIPID [id number] 00:00:00* Test Item Value Reference Range Interpretation Comme nts CHOLESTEROL (test code = 2210) 184 MG/DL TRIGLYCERIDES (test code = 2232) 69 MG/DL HDL CHOLESTEROL (test code = 2220) 67 MG/DL CALC LDL CHOL (test code = 2237) 101 MG/DL RISK RATIO LDL/HDL (test cod e = 2238) 1.51 RATIO Azam RaphaelHERPES SIMPLEX AB, [id number] 20:04:09* Test Item Value Reference Range Interpretation Comme nts HERPES SIMPLEX AB, IgM (test code = 37110) 1.03 INDEX SEE BELOW H FOR EQUIVOCAL [...] AND COMPARISON TO ACUTE OR CONVALESCENT TYPE-SPECIFIC SUE5TDE HSV2 IgG ASSAYS SHOULD BE CONSIDERED. INTERPRETATION UNITS RANGE ----- ----- NEGATIVE INDEX <=0.89 EQUIVOCAL INDEX 0.90-1.09 POSITIVE INDEX >=1.10 PAP TEST, THINPREP, [id number] 14:19:03* Test Item Value Reference Range Interpretation Comme nts SOURCE: (test code = 8001) Cervical/Endo cervical SLIDES: (test code = 8011) 1 LMP: (test code = 8021) 12/26/2022 SPECIMEN ADEQUACY: (test code = 63791) (NOTE) Satisfactory for evaluation. Endocervical cells/transformation zone component not identified. INTERPRETATION: (test code = 65842) NILM/NO EPITH. ABNORMALITY;S EE BELOW ---- NEGATIVE FOR INTRAEPITHELIAL LESION OR MALIGNANCY (NILM) - OTHER COMMENTS: (test code = 8081) (NOTE) Shift in hallie suggestive of bacterial vaginosis. VICE PRESIDENT OF ENGINEERING: (test code = 8101) HAYLIE Beach (ASCP) LOCATION: (test code = 19545) (NOTE) Specimens proces sed and interpreted at [facility], [address] [place] [address], , CLIA: [id number] CPT: (test code = 8140) (NOTE) 11458 UNLESS OTH ERWISE INDICATED, COMPUTER AIDED AND VICE PRESIDENT OF ENGINEERING SCREENING PERFORMED. The Pap test is a screening test with an inherent, but low probability of error. Your patient should be reminded to consult you immediately if she experiences any suspicious signs or symptoms, regardless of her Pap test result. An alternate report format containing images or consolidated prior Pap history is available as applicable. HPV HIGH RISK WITH GENOTYPE, [id number] 14:13:14* Test Item Value Reference Range Interpretation Comme nts HPV HIGH RISK INTERP (test code = 10912) NEGATIVE NEGATIVE HPV 16 (test code = 88053) NEGATIVE HPV 18 (test code = 82998) NEGATIVE HPV, HR, OTHER GENOTYPES (test code = 30173) NEGATIVE Testing methodol ogy is real-time PCR [...] TESTING PERFORMED AT [facility] [address] [place] [address] EMR ANALYST: CYNDEE MCPHERSON M.D. [place] NUMBER [id number] [facility] [place]. [id number] VAGINAL PATHOGENS DNA [id number] 13:04:06* Test Item Value Reference Range Interpretation Comme nts DWIGHT SPECIES (test code = 86614) NEGATIVE NEGATIVE G. VAGINALIS (test code = 69670) POSITIVE NEGATIVE A T. VAGINALIS (test code = 45997) NEGATIVE NEGATIVE Note: The [employer] VPIII Microbial Identification Testis a DNA probe test intended for use in the detectionand identification of Dwight species, Gardnerellavaginalis and Trichomonas vaginalis nucleic acid. CT/NG, NAAT, [id number] 11:41:28* Test Item Value Reference Range Interpretation Comme nts CHLAMYDIA, NAAT, THINPREP (test code = 13761) NEGATIVE NEGATIVE A negative resul t does not exclude low level infection, specimensampling error, or collection error. Testing is performed with the Kaiden Jenniffer 6800/8800 systems usingreal-time Polymerase Chain Reaction (PCR) method. GONORRHEA, NAAT, THINPREP (test code = 61316) NEGATIVE NEGATIVE A negative resul t does not exclude low level infection, specimensampling error, or collection error. Testing is performed with the [employer] Jenniffer 6800/8800 systems usingreal-time Polymerase Chain Reaction (PCR) method. [id number] 05:38:12* Test Item Value Reference Range Interpretation Comme nts RPR RESULT (test code = 3501) NON-REACTIVE NON-REACTIVE RPR TITER (test code = 3500) NOT INDIC. TITER NOT INDIC. HIV 1/2 4TH GEN, RFLX [id number] 04:19:13* Test Item Value Reference Range Interpretation Comme nts HIV 1/2 4TH GEN, RFLX CONF ( test code = 3514) NON-REACTIVE NON-REACTIVE HEPATITIS PANEL, [id number] 04:19:13* Test Item Value Reference Range Interpretation Comme nts HEPATITIS A IgM (test code = 69583) NON-REACTIVE NON-REACTIVE HEPATITIS B CORE IgM (test code = 4644) NON-REACTIVE NON-REACTIVE HEPATITIS B SURF AG (test code = 2739) NON-REACTIVE NON-REACTIVE HEPATITIS C ANTIBODY (test code = 4675) NON-REACTIVE NON-REACTIVE INTERPRETATION HEPATITIS A: (test code = 2552) (NOTE) Hepatitis A serology shows no evidence of acute hepatitis A. INTERPRETATION HEPATITIS B: (test code = 48549) (NOTE) Hepatitis B serology shows no evidence of acute hepatitis B andno indication of exposure to hepatitis B virus in the previous kiko eight months. INTERPRETATION HEPATITIS C: (test code = 74451) (NOTE) Hepatitis C serology shows no evidence of exposure to hepatitisC virus at this time. It can take up to 12 months after exposure tothe hepatitis C virus for antibodies to become detectable in the blood in certain patients. HERPES SIMPLEX 1/2 AB, IgG [id number] 04:19:13* Test Item Value Reference Range Interpretation Comme nts HERPES SIMPLEX 1 AB, IgG (test code = 28205) 11.900 INDEX SEE BELOW H INTERPRETATION UNITS RANGE ----- ----- NON-REACTIVE INDEX <1.000 REACTIVE INDEX >=1.000 HERPES SIMPLEX 2 AB, IgG (test code = 81180) 21.200 INDEX SEE BELOW H INTERPRETATION U NITS RANGE ----- ----- NON-REACTIVE INDEX <1.000 REACTIVE INDEX >=1.000 UNLESS OTHERWISE INDICATED, ALL TESTING PERFORMED AT [facility] [address] [place] [address] EMR ANALYST: CYNDEE MCPHERSON M.D. CLIA NUMBER [id number] [facility]. [id number] GC AND CHLAMYDIA AMPLIFIED, [id number] 00:00:00* Test Item Value Reference Range Interpretation Comme nts CHLAMYDIA, NAAT, THINPREP (t est code = 63083) NEGATIVE GONORRHEA, NAAT, THINPREP (t est code = 01467) NEGATIVE Azam RaphaelPAP TEST, THINPREP, [id number] 00:00:00* Test Item Value Reference Range Interpretation Comme nts SOURCE: (test code = 8001) Cervical/Endocervical SLIDES: (test code = 8011) 1 LMP: (test code = 8021) 12/26/2022 SPECIMEN ADEQUACY: (test code = 75093) (NOTE) INTERPRETATION: (test code = 81226) NILM/NO EPITH. ABNORMALITY;SEE BELOW OTHER COMMENTS: (test code = 8081) (NOTE) VICE PRESIDENT OF ENGINEERING: (test code = 8101) HAYLIE Beach (ASCP) LOCATION: (test code = 16112) (NOTE) CPT: (test code = 8140) (NOTE) Azam RaphaelVAGINAL PATHOGENS DNA [id number] 00:00:00* Test Item Value Reference Range Interpretation Comme nts DWIGHT SPECIES (test code = 25909) NEGATIVE G. VAGINALIS (test code = 43080) POSITIVE T. VAGINALIS (test code = 20258) NEGATIVE Azam RaphaelHPV HIGH RISK WITH GENOTYPE, [id number] 00:00:00* Test Item Value Reference Range Interpretation Comme nts HPV HIGH RISK INTERP (test c ode = 16863) NEGATIVE HPV 16 (test code = 69014) NEGATIVE HPV 18 (test code = 12755) NEGATIVE HPV, HR, OTHER GENOTYPES (te st code = 39850) NEGATIVE Azam [id number] 00:00:00* Test Item Value Reference Range Interpretation Comme nts RPR RESULT (test code = 3501) NON-REACTIVE RPR TITER (test code = 3500) NOT INDIC. TITER Azam RaphaelACUTE HEPATITIS [id number] 00:00:00* Test Item Value Reference Range Interpretation Comme nts HEPATITIS A IgM (test code = 77346) NON-REACTIVE HEPATITIS B CORE IgM (test c ode = 4644) NON-REACTIVE HEPATITIS B SURF AG (test co de = 9649) NON-REACTIVE HEPATITIS C ANTIBODY (test c ode = 4651) NON-REACTIVE INTERPRETATION HEPATITIS A: (test code = 2552) (NOTE) INTERPRETATION HEPATITIS B: (test code = 51207) (NOTE) INTERPRETATION HEPATITIS C: (test code = 25226) (NOTE) Azam RaphaelHERPES SIMPLEX [id number] 00:00:00* Test Item Value Reference Range Interpretation Comme nts HERPES SIMPLEX AB, IgM (test code = 82207) 1.03 INDEX Azam RaphaelHERPES SIMPLEX 1/2 [id number] 00:00:00* Test Item Value Reference Range Interpretation Comme nts HERPES SIMPLEX 1 AB, IgG (te st code = 01588) 11.900 INDEX HERPES SIMPLEX 2 AB, IgG (te st code = 47269) 21.200 INDEX Azam RaphaelHIV 1/2 4TH GEN, RFLX [id number] 00:00:00* Test Item Value Reference Range Interpretation Comme nts HIV 1/2 4TH GEN, RFLX CONF ( test code = 3514) NON-REACTIVE Azam RaphaelGC AND CHLAMYDIA AMPLIFIED, [id number] 00:00:00* Test Item Value Reference Range Interpretation Comme nts CHLAMYDIA, NAAT, THINPREP (t est code = 56672) NEGATIVE GONORRHEA, NAAT, THINPREP (t est code = 02180) NEGATIVE Azam RaphaelPAP TEST, THINPREP, [id number] 00:00:00* Test Item Value Reference Range Interpretation Comme nts SOURCE: (test code = 8001) Cervical/Endocervical SLIDES: (test code = 8011) 1 LMP: (test code = 8021) 12/26/2022 SPECIMEN ADEQUACY: (test code = 13078) (NOTE) INTERPRETATION: (test code = 53785) NILM/NO EPITH. ABNORMALITY;SEE BELOW OTHER COMMENTS: (test code = 8081) (NOTE) VICE PRESIDENT OF ENGINEERING: (test code = 8101) HAYLIE [place] (ASCP) LOCATION: (test code = 77110) (NOTE) CPT: (test code = 8140) (NOTE) Azam RaphaelVAGINAL PATHOGENS DNA [id number] 00:00:00* Test Item Value Reference Range Interpretation Comme nts DWIGHT SPECIES (test code = 05500) NEGATIVE G. VAGINALIS (test code = 54883) POSITIVE T. VAGINALIS (test code = 12146) NEGATIVE Azam RaphaelHPV HIGH RISK WITH GENOTYPE, [id number] 00:00:00* Test Item Value Reference Range Interpretation Comme nts HPV HIGH RISK INTERP (test c ode = 94834) NEGATIVE HPV 16 (test code = 39003) NEGATIVE HPV 18 (test code = 92378) NEGATIVE HPV, HR, OTHER GENOTYPES (te st code = 41649) NEGATIVE Azam [id number] 00:00:00* Test Item Value Reference Range Interpretation Comme nts RPR RESULT (test code = 3501) NON-REACTIVE RPR TITER (test code = 3500) NOT INDIC. TITER Azam RaphaelACUTE HEPATITIS [id number] 00:00:00* Test Item Value Reference Range Interpretation Comme nts HEPATITIS A IgM (test code = 27893) NON-REACTIVE HEPATITIS B CORE IgM (test c ode = 4644) NON-REACTIVE HEPATITIS B SURF AG (test co de = 2739) NON-REACTIVE HEPATITIS C ANTIBODY (test c ode = 4675) NON-REACTIVE INTERPRETATION HEPATITIS A: (test code = 2552) (NOTE) INTERPRETATION HEPATITIS B: (test code = 93109) (NOTE) INTERPRETATION HEPATITIS C: (test code = 46807) (NOTE) Azam PuentePES SIMPLEX [id number] 00:00:00* Test Item Value Reference Range Interpretation Comme nts HERPES SIMPLEX AB, IgM (test code = 55943) 1.03 INDEX Azam RaphaelHERPES SIMPLEX 1/2 [id number] 00:00:00* Test Item Value Reference Range Interpretation Comme nts HERPES SIMPLEX 1 AB, IgG (te st code = 66874) 11.900 INDEX HERPES SIMPLEX 2 AB, IgG (te st code = 57554) 21.200 INDEX Azam RaphaelHIV 1/2 4TH GEN, RFLX [id number] 00:00:00* Test Item Value Reference Range Interpretation Comme nts HIV 1/2 4TH GEN, RFLX CONF ( test code = 3514) NON-REACTIVE Azam RaphaelGC AND CHLAMYDIA AMPLIFIED, [id number] 00:00:00* Test Item Value Reference Range Interpretation Comme nts CHLAMYDIA, NAAT, THINPREP (t est code = 69374) NEGATIVE GONORRHEA, NAAT, THINPREP (t est code = 82643) NEGATIVE Azam RaphaelPAP TEST, THINPREP, [id number] 00:00:00* Test Item Value Reference Range Interpretation Comme nts SOURCE: (test code = 8001) Cervical/Endocervical SLIDES: (test code = 8011) 1 LMP: (test code = 8021) 12/26/2022 SPECIMEN ADEQUACY: (test code = 37889) (NOTE) INTERPRETATION: (test code = 69606) NILM/NO EPITH. ABNORMALITY;SEE BELOW OTHER COMMENTS: (test code = 8081) (NOTE) VICE PRESIDENT OF ENGINEERING: (test code = 8101) HAYLIE Beach (ASCP) LOCATION: (test code = 67459) (NOTE) CPT: (test code = 8140) (NOTE) Azam RaphaelVAGINAL PATHOGENS DNA [id number] 00:00:00* Test Item Value Reference Range Interpretation Comme nts DWIGHT SPECIES (test code = 88635) NEGATIVE G. VAGINALIS (test code = 24796) POSITIVE T. VAGINALIS (test code = 76476) NEGATIVE Azam Vallejo [id number] 00:00:00* Test Item Value Reference Range Interpretation Comme nts RPR RESULT (test code = 3501) NON-REACTIVE RPR TITER (test code = 3500) NOT INDIC. TITER Azam RaphaelHPV HIGH RISK WITH GENOTYPE, [id number] 00:00:00* Test Item Value Reference Range Interpretation Comme nts HPV HIGH RISK INTERP (test c ode = 81693) NEGATIVE HPV 16 (test code = 06298) NEGATIVE HPV 18 (test code = 13935) NEGATIVE HPV, HR, OTHER GENOTYPES (te st code = 96822) NEGATIVE Azam RaphaelACUTE HEPATITIS [id number] 00:00:00* Test Item Value Reference Range Interpretation Comme nts HEPATITIS A IgM (test code = 83640) NON-REACTIVE HEPATITIS B CORE IgM (test c ode = 4644) NON-REACTIVE HEPATITIS B SURF AG (test co de = 2739) NON-REACTIVE HEPATITIS C ANTIBODY (test c ode = 4612) NON-REACTIVE INTERPRETATION HEPATITIS A: (test code = 2552) (NOTE) INTERPRETATION HEPATITIS B: (test code = 12444) (NOTE) INTERPRETATION HEPATITIS C: (test code = 51258) (NOTE) Azam RaphaelHERPES SIMPLEX [id number] 00:00:00* Test Item Value Reference Range Interpretation Comme nts HERPES SIMPLEX AB, IgM (test code = 79743) 1.03 INDEX Azam RaphaelHERPES SIMPLEX 1/2 [id number] 00:00:00* Test Item Value Reference Range Interpretation Comme nts HERPES SIMPLEX 1 AB, IgG (te st code = 76516) 11.900 INDEX HERPES SIMPLEX 2 AB, IgG (te st code = 49766) 21.200 INDEX Azam RaphaelHIV 1/2 4TH GEN, RFLX [id number] 00:00:00* Test Item Value Reference Range Interpretation Comme nts HIV 1/2 4TH GEN, RFLX CONF ( test code = 3514) NON-REACTIVE Azam RaphaelGC AND CHLAMYDIA AMPLIFIED, [id number] 00:00:00* Test Item Value Reference Range Interpretation Comme nts CHLAMYDIA, NAAT, THINPREP (t est code = 05030) NEGATIVE GONORRHEA, NAAT, THINPREP (t est code = 33283) NEGATIVE Azam RaphaelPAP TEST, THINPREP, [id number] 00:00:00* Test Item Value Reference Range Interpretation Comme nts SOURCE: (test code = 8001) Cervical/Endocervical SLIDES: (test code = 8011) 1 LMP: (test code = 8021) 12/26/2022 SPECIMEN ADEQUACY: (test code = 40535) (NOTE) INTERPRETATION: (test code = 17457) NILM/NO EPITH. ABNORMALITY;SEE BELOW OTHER COMMENTS: (test code = 8081) (NOTE) VICE PRESIDENT OF ENGINEERING: (test code = 8101) HAYLIE Beach (ASCP) LOCATION: (test code = 09097) (NOTE) CPT: (test code = 8140) (NOTE) Azam RaphaelVAGINAL PATHOGENS DNA [id number] 00:00:00* Test Item Value Reference Range Interpretation Comme karolyn DWIGHT SPECIES (test code = 55544) NEGATIVE G. VAGINALIS (test code = 94016) POSITIVE T. VAGINALIS (test code = 04785) NEGATIVE Azam [id number] 00:00:00* Test Item Value Reference Range Interpretation Comme nts RPR RESULT (test code = 3501) NON-REACTIVE RPR TITER (test code = 3500) NOT INDIC. TITER Azam RaphaelHPV HIGH RISK WITH GENOTYPE, [id number] 00:00:00* Test Item Value Reference Range Interpretation Comme [facility] HPV HIGH RISK INTERP (test c ode = 37237) NEGATIVE HPV 16 (test code = 22125) NEGATIVE HPV 18 (test code = 30807) NEGATIVE HPV, HR, OTHER GENOTYPES (te st code = 83876) NEGATIVE Azam RaphaelACUTE HEPATITIS [id number] 00:00:00* Test Item Value Reference Range Interpretation Comme nts HEPATITIS A IgM (test code = 42353) NON-REACTIVE HEPATITIS B CORE IgM (test c ode = 4644) NON-REACTIVE HEPATITIS B SURF AG (test co de = 2739) NON-REACTIVE HEPATITIS C ANTIBODY (test c ode = 4675) NON-REACTIVE INTERPRETATION HEPATITIS A: (test code = 2552) (NOTE) INTERPRETATION HEPATITIS B: (test code = 10412) (NOTE) INTERPRETATION HEPATITIS C: (test code = 99133) (NOTE) Azam PuentePES SIMPLEX [id number] 00:00:00* Test Item Value Reference Range Interpretation Comme [facility] HERPES SIMPLEX AB, IgM (test code = 56363) 1.03 INDEX Azam RaphaelHERPES SIMPLEX 1/2 [id number] 00:00:00* Test Item Value Reference Range Interpretation Comme [facility] HERPES SIMPLEX 1 AB, IgG (te st code = 45272) 11.900 INDEX HERPES SIMPLEX 2 AB, IgG (te st code = 75850) 21.200 INDEX Azam RaphaelHIV 1/2 4TH GEN, RFLX [id number] 00:00:00* Test Item Value Reference Range Interpretation Comme [facility] HIV 1/2 4TH GEN, RFLX CONF ( test code = 3514) NON-REACTIVE Azam RaphaelPAP TEST, THINPREP, [id number] 12:31:46* Test Item Value Reference Range Interpretation Comme [facility] SOURCE: (test code = 8001) Cervical SLIDES: (test code = 8011) 1 LMP: (test code = 8021) NOT GIVEN SPECIMEN ADEQUACY: (test code = 50934) (NOTE) Satisfactory for evaluation. Endocervical cells/transformation zone component present. INTERPRETATION: (test code = 01844) NILM/NO EPITH. ABNORMALITY;SEE BELOW --- - NEGATIVE FOR INTRAEPITHELIAL LESION OR MALIGNANCY (NILM) ---- VICE PRESIDENT OF ENGINEERING : (test code = 8101) HAYLIE Beach (ASCP) LOCATION: (test code = 66574) (NOTE) Specimens proces sed and interpreted at [facility], [address] [place] [id number], , CLIA: [id number] CPT: (test code = 8140) (NOTE) 16481 UNLESS OT HERWISE INDICATED, COMPUTER AIDED AND VICE PRESIDENT OF ENGINEERING SCREENING PERFORMED. The Pap test is a screening test with an inherent, but low probability of error. Your patient should be reminded to consult you immediately if she experiences any suspicious signs or symptoms, regardless of her Pap test result. An alternate report format containing images or consolidated prior Pap history is available as applicable. HPV HIGH RISK WITH GENOTYPE, [id number] 12:26:32* Test Item Value Reference Range Interpretation Comme nts HPV HIGH RISK INTERP (test code = 07107) NEGATIVE NEGATIVE HPV 16 (test code = 59175) NEGATIVE HPV 18 (test code = 90238) NEGATIVE HPV, HR, OTHER GENOTYPES (test code = 05435) NEGATIVE Testing methodol ogy is real-time PCR [...] error. UNLESS OTHERWISE INDICATED, ALL TESTING PERFORMED [facility] [employer], [facility]. [address] [place] [id number] EMR ANALYST: TERRI MCCRARY M.D. CLIA NUMBER [id number] [facility] [place]. [id number] PAP TEST, THINPREP, [id number] 00:00:00* Test Item Value Reference Range Interpretation Comme nts SOURCE: (test code = 8001) Cervical SLIDES: (test code = 8011) 1 LMP: (test code = 8021) NOT GIVEN SPECIMEN ADEQUACY: (test code = 30232) (NOTE) INTERPRETATION: (test code = 62218) NILM/NO EPITH. ABNORMALITY;SEE BELOW VICE PRESIDENT OF ENGINEERING: (test code = 8101) HAYLIE Beach (ASCP) LOCATION: (test code = 20605) (NOTE) CPT: (test code = 8140) (NOTE) Azam F AustinHPV HIGH RISK WITH GENOTYPE, [id number] 00:00:00* Test Item Value Reference Range Interpretation Comme nts HPV HIGH RISK INTERP (test c ode = 26623) NEGATIVE HPV 16 (test code = 10858) NEGATIVE HPV 18 (test code = 19773) NEGATIVE HPV, HR, OTHER GENOTYPES (te st code = 24995) NEGATIVE Azam F AustinPAP TEST, THINPREP, [id number] 00:00:00* Test Item Value Reference Range Interpretation Comme nts SOURCE: (test code = 8001) Cervical SLIDES: (test code = 8011) 1 LMP: (test code = 8021) NOT GIVEN SPECIMEN ADEQUACY: (test code = 85345) (NOTE) INTERPRETATION: (test code = 19800) NILM/NO EPITH. ABNORMALITY;SEE BELOW VICE PRESIDENT OF ENGINEERING: (test code = 8101) HAYLIE Beach (ASCP) LOCATION: (test code = 37526) (NOTE) CPT: (test code = 8140) (NOTE) Azam F AustinHPV HIGH RISK WITH GENOTYPE, [id number] 00:00:00* Test Item Value Reference Range Interpretation Comme nts HPV HIGH RISK INTERP (test c ode = 91130) NEGATIVE HPV 16 (test code = 48923) NEGATIVE HPV 18 (test code = 77884) NEGATIVE HPV, HR, OTHER GENOTYPES (te st code = 33347) NEGATIVE Azam F AustinPAP TEST, THINPREP, [id number] 00:00:00* Test Item Value Reference Range Interpretation Comme nts SOURCE: (test code = 8001) Cervical SLIDES: (test code = 8011) 1 LMP: (test code = 8021) NOT GIVEN SPECIMEN ADEQUACY: (test code = 74085) (NOTE) INTERPRETATION: (test code = 35746) NILM/NO EPITH. ABNORMALITY;SEE BELOW VICE PRESIDENT OF ENGINEERING: (test code = 8101) HAYLIE Beach (ASCP) LOCATION: (test code = 41052) (NOTE) CPT: (test code = 8140) (NOTE) Azam Vallejo AustinHPV HIGH RISK WITH GENOTYPE, [id number] 00:00:00* Test Item Value Reference Range Interpretation Comme nts HPV HIGH RISK INTERP (test c ode = 68364) NEGATIVE HPV 16 (test code = 50779) NEGATIVE HPV 18 (test code = 14667) NEGATIVE HPV, HR, OTHER GENOTYPES (te st code = 58129) NEGATIVE Azam RaphaelPAP TEST, THINPREP, [id number] 00:00:00* Test Item Value Reference Range Interpretation Comme nts SOURCE: (test code = 8001) Cervical SLIDES: (test code = 8011) 1 LMP: (test code = 8021) NOT GIVEN SPECIMEN ADEQUACY: (test code = 02084) (NOTE) INTERPRETATION: (test code = 15921) NILM/NO EPITH. ABNORMALITY;SEE BELOW VICE PRESIDENT OF ENGINEERING: (test code = 8101) HAYLIE Beach (ASCP) LOCATION: (test code = 97808) (NOTE) CPT: (test code = 8140) (NOTE) Azam Vallejo AustinHPV HIGH RISK WITH GENOTYPE, [id number] 00:00:00* Test Item Value Reference Range Interpretation Comme nts HPV HIGH RISK INTERP (test c ode = 19661) NEGATIVE HPV 16 (test code = 72430) NEGATIVE HPV 18 (test code = 22044) NEGATIVE HPV, HR, OTHER GENOTYPES (te st code = 55307) NEGATIVE Azam Vallejo AustinCT/NG, NAAT, [id number] 17:17:22* Test Item Value Reference Range Interpretation Comme nts CHLAMYDIA, NAAT, THINPREP (test code = 52978) NEGATIVE NEGATIVE A negative resul t does not exclude low level infection, specimensampling error, or collection error. Testing is performed with the [employer] 6800/8800 systems usingreal-time Polymerase Chain Reaction (PCR) method. GONORRHEA, NAAT, THINPREP (test code = 20063) NEGATIVE NEGATIVE A negative resul t does not exclude low level infection, specimensampling error, or collection error. Testing is performed with the [employer] 6800/8800 systems usingreal-time Polymerase Chain Reaction (PCR) method. GC AND CHLAMYDIA AMPLIFIED, [id number] 00:00:00* Test Item Value Reference Range Interpretation Comme nts CHLAMYDIA, NAAT, THINPREP (t est code = 96098) NEGATIVE GONORRHEA, NAAT, THINPREP (t est code = 46229) NEGATIVE Azam F AustinGC AND CHLAMYDIA AMPLIFIED, [id number] 00:00:00* Test Item Value Reference Range Interpretation Comme nts CHLAMYDIA, NAAT, THINPREP (t est code = 86865) NEGATIVE GONORRHEA, NAAT, THINPREP (t est code = 09855) NEGATIVE Azam F AustinGC AND CHLAMYDIA AMPLIFIED, [id number] 00:00:00* Test Item Value Reference Range Interpretation Comme nts CHLAMYDIA, NAAT, THINPREP (t est code = 44185) NEGATIVE GONORRHEA, NAAT, THINPREP (t est code = 09618) NEGATIVE Azam F AustinGC AND CHLAMYDIA AMPLIFIED, [id number] 00:00:00* Test Item Value Reference Range Interpretation Comme nts CHLAMYDIA, NAAT, THINPREP (t est code = 00868) NEGATIVE GONORRHEA, NAAT, THINPREP (t est code = 75801) NEGATIVE Azam F AustinVAGINAL PATHOGENS DNA [id number] 12:33:41* Test Item Value Reference Range Interpretation Comme nts DWIGHT SPECIES (test code = 53432) NEGATIVE NEGATIVE G. VAGINALIS (test code = 15823) POSITIVE NEGATIVE A T. VAGINALIS (test code = 89065) NEGATIVE NEGATIVE Note: The [facility] ir VPIII Microbial Identification Testis a DNA probe test intended for use in the detectionand identification of Dwight species, Gardnerellavaginalis and Trichomonas vaginalis nucleic acid. HIV 1/2 4TH GEN, RFLX [id number] 03:14:00* Test Item Value Reference Range Interpretation Comme nts HIV 1/2 4TH GEN, RFLX CONF ( test code = 3514) NON-REACTIVE NON-REACTIVE HEPATITIS PANEL, [id number] 03:14:00* Test Item Value Reference Range Interpretation Comme nts HEPATITIS A IgM (test code = 25698) NON-REACTIVE NON-REACTIVE HEPATITIS B CORE IgM (test code = 4644) NON-REACTIVE NON-REACTIVE HEPATITIS B SURF AG (test code = 2739) NON-REACTIVE NON-REACTIVE HEPATITIS C ANTIBODY (test code = 4675) NON-REACTIVE NON-REACTIVE INTERPRETATION HEPATITIS A: (test code = 2552) (NOTE) Hepatitis A sero logy shows no evidence of acute hepatitis A. INTERPRETATION HEPATITIS B: (test code = 96016) (NOTE) Hepatitis B sero logy shows no evidence of acute hepatitis B andno indication of exposure to hepatitis B virus in the previous kiko eight months. INTERPRETATION HEPATITIS C: (test code = 55212) (NOTE) Hepatitis C sero logy shows no evidence of exposure to hepatitisC virus at this time. It can take up to 12 months after exposure tothe hepatitis C virus for antibodies to become detectable in the blood in certain patients. UNLESS OTHERWISE INDICATED, ALL TESTING PERFORMED [facility] [address] [place] [address] EMR ANALYST: TERRI MCCRARY M.D. CLIA NUMBER [id number] [facility] [place]. [id number] 02:43:33* Test Item Value Reference Range Interpretation Comme nts RPR RESULT (test code = 3501) NON-REACTIVE NON-REACTIVE RPR TITER (test code = 3500) NOT INDIC. TITER NOT INDIC. HIV 1/2 4TH GEN, RFLX [id number] 00:00:00* Test Item Value Reference Range Interpretation Comme nts HIV 1/2 4TH GEN, RFLX CONF ( test code = 3514) NON-REACTIVE Azam RaphaelVAGINAL PATHOGENS DNA [id number] 00:00:00* Test Item Value Reference Range Interpretation Comme nts DWIGHT SPECIES (test code = 68635) NEGATIVE G. VAGINALIS (test code = 63544) POSITIVE T. VAGINALIS (test code = 31010) NEGATIVE Azam [id number] 00:00:00* Test Item Value Reference Range Interpretation Comme nts RPR RESULT (test code = 3501) NON-REACTIVE RPR TITER (test code = 3500) NOT INDIC. TITER Azam RaphaelACUTE HEPATITIS [id number] 00:00:00* Test Item Value Reference Range Interpretation Comme nts HEPATITIS A IgM (test code = 19512) NON-REACTIVE HEPATITIS B CORE IgM (test c ode = 4644) NON-REACTIVE HEPATITIS B SURF AG (test co de = 2739) NON-REACTIVE HEPATITIS C ANTIBODY (test c ode = 4675) NON-REACTIVE INTERPRETATION HEPATITIS A: (test code = 2552) (NOTE) INTERPRETATION HEPATITIS B: (test code = 19768) (NOTE) INTERPRETATION HEPATITIS C: (test code = 12092) (NOTE) Azam RaphaelHIV 1/2 4TH GEN, RFLX [id number] 00:00:00* Test Item Value Reference Range Interpretation Comme nts HIV 1/2 4TH GEN, RFLX CONF ( test code = 3514) NON-REACTIVE Azam RaphaelVAGINAL PATHOGENS DNA [id number] 00:00:00* Test Item Value Reference Range Interpretation Comme nts DWIGHT SPECIES (test code = 21182) NEGATIVE G. VAGINALIS (test code = 54360) POSITIVE T. VAGINALIS (test code = 74422) NEGATIVE Azam [id number] 00:00:00* Test Item Value Reference Range Interpretation Comme nts RPR RESULT (test code = 3501) NON-REACTIVE RPR TITER (test code = 3500) NOT INDIC. TITER Azam RaphaelACUTE HEPATITIS [id number] 00:00:00* Test Item Value Reference Range Interpretation Comme nts HEPATITIS A IgM (test code = 07146) NON-REACTIVE HEPATITIS B CORE IgM (test c ode = 4644) NON-REACTIVE HEPATITIS B SURF AG (test co de = 2739) NON-REACTIVE HEPATITIS C ANTIBODY (test c ode = 4675) NON-REACTIVE INTERPRETATION HEPATITIS A: (test code = 2552) (NOTE) INTERPRETATION HEPATITIS B: (test code = 09110) (NOTE) INTERPRETATION HEPATITIS C: (test code = 17362) (NOTE) Azam RaphaelHIV 1/2 4TH GEN, RFLX [id number] 00:00:00* Test Item Value Reference Range Interpretation Comme nts HIV 1/2 4TH GEN, RFLX CONF ( test code = 3514) NON-REACTIVE Azam Vallejo AustinVAGINAL PATHOGENS DNA [id number] 00:00:00* Test Item Value Reference Range Interpretation Comme nts DWIGHT SPECIES (test code = 28547) NEGATIVE G. VAGINALIS (test code = 02718) POSITIVE T. VAGINALIS (test code = 12902) NEGATIVE Azam Vallejo [id number] 00:00:00* Test Item Value Reference Range Interpretation Comme nts RPR RESULT (test code = 3501) NON-REACTIVE RPR TITER (test code = 3500) NOT INDIC. TITER Azam RaphaelACUTE HEPATITIS [id number] 00:00:00* Test Item Value Reference Range Interpretation Comme nts HEPATITIS A IgM (test code = 37143) NON-REACTIVE HEPATITIS B CORE IgM (test c ode = 4644) NON-REACTIVE HEPATITIS B SURF AG (test co de = 2739) NON-REACTIVE HEPATITIS C ANTIBODY (test c ode = 4675) NON-REACTIVE INTERPRETATION HEPATITIS A: (test code = 2552) (NOTE) INTERPRETATION HEPATITIS B: (test code = 16891) (NOTE) INTERPRETATION HEPATITIS C: (test code = 73598) (NOTE) Azam RaphaelHIV 1/2 4TH GEN, RFLX [id number] 00:00:00* Test Item Value Reference Range Interpretation Comme nts HIV 1/2 4TH GEN, RFLX CONF ( test code = 3514) NON-REACTIVE Azam Vallejo AustinVAGINAL PATHOGENS DNA [id number] 00:00:00* Test Item Value Reference Range Interpretation Comme nts DWIGHT SPECIES (test code = 20462) NEGATIVE G. VAGINALIS (test code = 26371) POSITIVE T. VAGINALIS (test code = 96721) NEGATIVE Azam Vallejo [id number] 00:00:00* Test Item Value Reference Range Interpretation Comme nts RPR RESULT (test code = 3501) NON-REACTIVE RPR TITER (test code = 3500) NOT INDIC. TITER Azam RaphaelACUTE HEPATITIS [id number] 00:00:00* Test Item Value Reference Range Interpretation Comme nts HEPATITIS A IgM (test code = 41010) NON-REACTIVE HEPATITIS B CORE IgM (test c ode = 4696) NON-REACTIVE HEPATITIS B SURF AG (test co de = 0339) NON-REACTIVE HEPATITIS C ANTIBODY (test c ode = 4676) NON-REACTIVE INTERPRETATION HEPATITIS A: (test code = 2552) (NOTE) INTERPRETATION HEPATITIS B: (test code = 26462) (NOTE) INTERPRETATION HEPATITIS C: (test code = 63355) (NOTE) Azam Vallejo Karon. METABOLIC PANEL ([id number] 19:42:47* Test Item Value Reference Range Interpretation Comme nts NA (test code = 5076069219) 138 mmol/L 135-145 K (test code = 6881301027) 4.8 mmol/L 3.5-5.0 CL (test code = 7294255665) 102 mmol/L 98-108 CO2 TOTAL (test code = 4942989127) 25 mmol/L 23-31 AGAP (test code = 9827654447) 2-16 BUN (test code = 4503925801) 15 mg/dL 7-23 GLUCOSE (test code = 7367262594) 90 mg/dL 70-110 CREATININE (test code = 2382526655) 0.64 mg/dL 0.50-1.04 TOTAL BILI (test code = 3838134609) 0.8 mg/dL 0.1-1.1 CALCIUM (test code = 4244577188) 9.9 mg/dL 8.6-10.6 T PROTEIN (test code = 5278031454) 7.8 g/dL 6.3-8.2 ALBUMIN (test code = 2430783166) 5.0 g/dL 3.5-5.0 ALK PHOS (test code = 2130094819) 84 U/L 34-122 ALTv (test code = 1742-6) 14 U/L 5-35 AST(SGOT) (test code = 0292117638) 23 U/L 13-40 eGFR (test code = 1569444347) mL/min/1.73m2 [place] (test code = [place]) Association [...] or urine or abnormalities in imaging tests). [facility] WITH [id number] 19:29:29* Test Item Value Reference Range Interpretation Comme nts WBC (test code = 6690-2) See_Comment [Ofidium] The system which generated this result transmitted reference range: 4.30 - 11.10 10*3/?L. The reference range was not used to interpret this result as normal/abnormal. RBC (test code = 789-8) See_Comment [Ofidium] The system which generated this result transmitted [...] 34.0 g/dL 31.6-35.1 RDW-SD (test code = 40704-8) 42.0 fL 39.0-49.9 RDW-CV (test code = 788-0) 12.1 % 12.0-15.5 PLT (test code = 777-3) See_Comment [Automated messa ge] The system which generated this result transmitted reference range: 166 - 358 10*3/?L. The reference range was not used to interpret this result as normal/abnormal. MPV (test code = 08524-8) 10.0 fL 9.5-12.9 NRBC/100 WBC (test code = 0411769949) See_Comment [Automated Veeda ssage] The system which generated this result transmitted reference range: 0.0 - 10.0 /100 WBCs. The reference range was not used to interpret this result as normal/abnormal. NRBC x10^3 (test code = 8799355651) <0.01 See_Comment [Automated messa ge] The system which generated this result transmitted reference range: 10*3/?L. The reference range was not used to interpret this result as normal/abnormal. GRAN MAT (NEUT) % (test code = 770-8) 65.5 % IMM GRAN % (test code = 7120558916) 0.40 % LYMPH % (test code = 736-9) 20.6 % MONO % (test code = 5905-5) 10.5 % EOS % (test code = 713-8) 2.1 % BASO % (test code = 706-2) 0.9 % GRAN MAT x10^3(ANC) (test code = 8434894607) 5.61 10*3/uL 1.88-7.09 IMM GRAN x10^3 (test code = 9529508220) 0.03 10*3/uL 0.00-0.06 LYMPH x10^3 (test code = 731-0) 1.76 10*3/uL 1.32-3.29 MONO x10^3 (test code = 742-7) 0.90 10*3/uL 0.33-0.92 EOS x10^3 (test code = 711-2) 0.18 10*3/uL 0.03-0.39 BASO x10^3 (test code = 704-7) 0.08 10*3/uL 0.01-0.07 H Lab Interpretation (test code = 32914-2) [id number] 18:47:00* Test Item Value Reference Range Interpretation Comme nts POCT PREG (test code = 1605) Negative On board controls acceptable with C Line (test code = 3574) Present POCT PREG LOT # (test code = 3575) [id number] POCT PREG TEST DATE ( test code = 3576) 02-24-2023 Lab Interpretation (test cod e = 58700-5) [facility] [id number] 11:20:57* Test Item Value Reference Range Interpretation [...] previously r eported abnormal Pap (accession # [id number]) isreviewed. The atypical cells identified on the [...] TanNUMBER OF TISSUE PIECES: multipleSUBMITTED IN CASSETTE(S): [id number]: FormalinCOMMENTS:Filtered and entirely submitted. B) SPECIMEN LABELED: Cervix, 3 o'clockSIZE/WEIGHT: 0.3x0.2x0.1 cm AggregateSPECIMEN COLOR: TanNUMBER OF TISSUE PIECES: multipleSUBMITTED IN CASSETTE(S): [id number]: FormalinCOMMENTS:Entirely submitted intact. C) SPECIMEN LABELED: Cervix, 6 o'clockSIZE/WEIGHT: 0.3x0.2x0.1 cm SPECIMEN COLOR: TanNUMBER OF TISSUE PIECES: 1SUBMITTED IN CASSETTE(S): [id number]: FormalinCOMMENTS:Entirely submitted intact. D) SPECIMEN LABELED: Cervix, 9 o'clockSIZE/WEIGHT: 0.3x0.2x0.1 cm SPECIMEN COLOR: TanNUMBER OF TISSUE PIECES: 1SUBMITTED IN CASSETTE(S): [id number]: FormalinCOMMENTS:Entirely submitted intact. E) SPECIMEN LABELED: Cervix, 11 o'clockSIZE/WEIGHT: 0.4x0.3x0.3 cm SPECIMEN COLOR: TanNUMBER OF TISSUE PIECES: 1SUBMITTED IN CASSETTE(S): [id number]: FormalinCOMMENTS:Entirely submitted intact. PATHOLOGIST: (test code = 8250) (NOTE) Charisma galan [employer]imens processed at [facility], [address] [place] [address], , CLIA: [id number] interpreted at [facility] Pathology DeptLaboratory, [address] [place] [address], , CLIA: [id number] DISCLAIMER (test code = 32651) (NOTE) IHC antibodies a re interpreted in the presence of appropriatelyfunctioning controls unless otherwise noted. CPT: (test code = 8400) (NOTE) [id number], [id number] UNLESS OTHERWISE INDICATED, ALL TESTING PERFORMED [facility] [employer] [employer] [address] [place] [address] EMR ANALYST: TERRI MCCRARY M.D. CLIA NUMBER [id number] [facility] [place]. [id number] SURGICAL PATHOLOGY [id number] 00:00:00* Test Item Value Reference Range Interpretation Comme nts DIAGNOSIS: (test code = 8200) (NOTE) COMMENTS: (test code = 8205) (NOTE) MICROSCOPIC DESCRIPTION: (te st code = 8210) (NOTE) CLINICAL DATA: (test code = 8401) (NOTE) GROSS DESCRIPTION: (test code = 8220) (NOTE) PATHOLOGIST: (test code = 8250) (NOTE) DISCLAIMER (test code = 58452) (NOTE) CPT: (test code = 8400) (NOTE) Azam Valle[facility] [id number] 00:00:00* Test Item Value Reference Range Interpretation Comme nts DIAGNOSIS: (test code = 8200) (NOTE) COMMENTS: (test code = 8205) (NOTE) MICROSCOPIC DESCRIPTION: (te st code = 8210) (NOTE) CLINICAL DATA: (test code = 8401) (NOTE) GROSS DESCRIPTION: (test code = 8220) (NOTE) PATHOLOGIST: (test code = 8250) (NOTE) DISCLAIMER (test code = 77545) (NOTE) CPT: (test code = 8400) (NOTE) Azam [facility]le[facility] [place] [facility] [id number] 00:00:00* Test Item Value Reference Range Interpretation Comme nts DIAGNOSIS: (test code = 8200) (NOTE) COMMENTS: (test code = 8205) (NOTE) MICROSCOPIC DESCRIPTION: (te st code = 8210) (NOTE) CLINICAL DATA: (test code = 8401) (NOTE) GROSS DESCRIPTION: (test code = 8220) (NOTE) PATHOLOGIST: (test code = 8250) (NOTE) DISCLAIMER (test code = 80403) (NOTE) CPT: (test code = 8400) (NOTE) Azam Vallejo [place] [facility] [id number] 00:00:00* Test Item Value Reference Range Interpretation Comme nts DIAGNOSIS: (test code = 8200) (NOTE) COMMENTS: (test code = 8205) (NOTE) MICROSCOPIC DESCRIPTION: (te st code = 8210) (NOTE) CLINICAL DATA: (test code = 8401) (NOTE) GROSS DESCRIPTION: (test code = 8220) (NOTE) PATHOLOGIST: (test code = 8250) (NOTE) DISCLAIMER (test code = 81797) (NOTE) CPT: (test code = 8400) (NOTE) [facility] [id number] 00:00:00* Test Item Value Reference Range Interpretation Comme nts DIAGNOSIS: (test code = 8200) (NOTE) COMMENTS: (test code = 8205) (NOTE) MICROSCOPIC DESCRIPTION: (te st code = 8210) (NOTE) CLINICAL DATA: (test code = 8401) (NOTE) GROSS DESCRIPTION: (test code = 8220) (NOTE) PATHOLOGIST: (test code = 8250) (NOTE) DISCLAIMER (test code = 03042) (NOTE) CPT: (test code = 8400) (NOTE) SURGICAL PATHOLOGY [id number] 00:00:00* Test Item Value Reference Range Interpretation Comme nts DIAGNOSIS: (test code = 8200) (NOTE) COMMENTS: (test code = 8205) (NOTE) MICROSCOPIC DESCRIPTION: (te st code = 8210) (NOTE) CLINICAL DATA: (test code = 8401) (NOTE) GROSS DESCRIPTION: (test code = 8220) (NOTE) PATHOLOGIST: (test code = 8250) (NOTE) DISCLAIMER (test code = 45437) (NOTE) CPT: (test code = 8400) (NOTE) SURGICAL PATHOLOGY [id number] 00:00:00* Test Item Value Reference Range Interpretation Comme nts DIAGNOSIS: (test code = 8200) (NOTE) COMMENTS: (test code = 8205) (NOTE) MICROSCOPIC DESCRIPTION: (te st code = 8210) (NOTE) CLINICAL DATA: (test code = 8401) (NOTE) GROSS DESCRIPTION: (test code = 8220) (NOTE) PATHOLOGIST: (test code = 8250) (NOTE) DISCLAIMER (test code = 82862) (NOTE) CPT: (test code = 8400) (NOTE) PAP TEST, THINPREP, [id number] 11:12:17* Test Item Value Reference Range Interpretation Comme nts SOURCE: (test code = 8001) Cervical/Endo cervical SLIDES: (test code = 8011) 1 LMP: (test code = 8021) 08/05/2021 SPECIMEN ADEQUACY: (test code = 42992) (NOTE) Satisfactory for evaluation. Endocervical cells/transformation zone component present. INTERPRETATION: (test code = 90455) ASCUS/EPITH. ABNORMALITY; SEE BELOW A -- ---- EPITHELIAL CELL ABNORMALITY Atypical squamous cells of undetermined significance (ASC-US) OTHER COMMENTS: (test code = 8081) (NOTE) Possible celis ges of Herpes virus present. Recommend PCR orculture for confirmation. PCR may be performed on this samplewithin 21 days of collection. Please contact [facility] Customer Serviceat [phone]. VICE PRESIDENT OF ENGINEERING: (test code = 8101) HAYLIE Anderson(ASC P) PATHOLOGIST INTERPRETATION BY: (test code = 8122) Dylan Holland LOCATION: (test code = 73146) (NOTE) Specimens proces sed at [facility], [address] [place] [address], [place] [address], , CLIA: [id number] interpreted at [facility] Pathology DeptLaboratory, [address] [place] [address], , CLIA: [id number] CPT: (test code = 8140) (NOTE) [address], [address] UNL ESS OTHERWISE INDICATED, COMPUTER AIDED AND VICE PRESIDENT OF ENGINEERING SCREENING PERFORMED. The Pap test is a screening test with an inherent, but low probability of error. Your patient should be reminded to consult you immediately if she experiences any suspicious signs or symptoms, regardless of her Pap test result. An alternate report format containing images or consolidated prior Pap history is available as applicable. PAP TEST, THINPREP, [id number] 00:00:00* Test Item Value Reference Range Interpretation Comme nts SOURCE: (test code = 8001) Cervical/Endo cervic al SLIDES: (test code = 8011) 1 LMP: (test code = 8021) 08/05/2021 SPECIMEN ADEQUACY: (test code = 86357) (NOTE) INTERPRETATION: (test code = 30877) ASCUS/EPITH. ABNORMALITY; SEE BELOW OTHER COMMENTS: (test code = 8081) (NOTE) VICE PRESIDENT OF ENGINEERING: (test code = 8101) HAYLIE Anderson(ASCP) PATHOLOGIST INTERPRETATION BY: (test code = 8122) Dylan Holland LOCATION: (test code = 87445) (NOTE) CPT: (test code = 8140) (NOTE) Azam Yoni RaphaelMORTEZAP TEST, THINPREP, [id number] 00:00:00* Test Item Value Reference Range Interpretation Comme nts SOURCE: (test code = 8001) Cervical/Endo cervic al SLIDES: (test code = 8011) 1 LMP: (test code = 8021) 08/05/2021 SPECIMEN ADEQUACY: (test code = 61664) (NOTE) INTERPRETATION: (test code = 43120) ASCUS/EPITH. ABNORMALITY; SEE BELOW OTHER COMMENTS: (test code = 8081) (NOTE) VICE PRESIDENT OF ENGINEERING: (test code = 8101) HAYLIE Anderson(ASCP) PATHOLOGIST INTERPRETATION BY: (test code = 8122) Dylan Holland LOCATION: (test code = 57299) (NOTE) CPT: (test code = 8140) (NOTE) Azam Yoni DevP TEST, THINPREP, [id number] 00:00:00* Test Item Value Reference Range Interpretation Comme nts SOURCE: (test code = 8001) Cervical/Endo cervic al SLIDES: (test code = 8011) 1 LMP: (test code = 8021) 08/05/2021 SPECIMEN ADEQUACY: (test code = 00489) (NOTE) INTERPRETATION: (test code = 27654) ASCUS/EPITH. ABNORMALITY; SEE BELOW OTHER COMMENTS: (test code = 8081) (NOTE) VICE PRESIDENT OF ENGINEERING: (test code = 8101) HAYLIE Anderson(ASCP) PATHOLOGIST INTERPRETATION BY: (test code = 8122) Dylan Holland LOCATION: (test code = 67668) (NOTE) CPT: (test code = 8140) (NOTE) Azam RaphaelMORTEZALois TEST, THINPREP, [id number] 00:00:00* Test Item Value Reference Range Interpretation Comme nts SOURCE: (test code = 8001) Cervical/Endo cervic al SLIDES: (test code = 8011) 1 LMP: (test code = 8021) 08/05/2021 SPECIMEN ADEQUACY: (test code = 08741) (NOTE) INTERPRETATION: (test code = 23078) ASCUS/EPITH. ABNORMALITY; SEE BELOW OTHER COMMENTS: (test code = 8081) (NOTE) VICE PRESIDENT OF ENGINEERING: (test code = 8101) HAYLIE Anderson(ASCP) PATHOLOGIST INTERPRETATION BY: (test code = 8122) Dylan Holland LOCATION: (test code = 74759) (NOTE) CPT: (test code = 8140) (NOTE) Azam Vallejo DevP TEST, THINPREP, [id number] 00:00:00* Test Item Value Reference Range Interpretation Comme nts SOURCE: (test code = 8001) Cervical/Endo cervic al SLIDES: (test code = 8011) 1 LMP: (test code = 8021) 08/05/2021 SPECIMEN ADEQUACY: (test code = 85799) (NOTE) INTERPRETATION: (test code = 86412) ASCUS/EPITH. ABNORMALITY; SEE BELOW OTHER COMMENTS: (test code = 8081) (NOTE) VICE PRESIDENT OF ENGINEERING: (test code = 8101) HAYLIE Anderson(ASCP) PATHOLOGIST INTERPRETATION BY: (test code = 8122) Dylan Holland LOCATION: (test code = 54818) (NOTE) CPT: (test code = 8140) (NOTE) PAP TEST, THINPREP, [id number] 00:00:00* Test Item Value Reference Range Interpretation Comme nts SOURCE: (test code = 8001) Cervical/Endo cervic al SLIDES: (test code = 8011) 1 LMP: (test code = 8021) 08/05/2021 SPECIMEN ADEQUACY: (test code = 74120) (NOTE) INTERPRETATION: (test code = 02843) ASCUS/EPITH. ABNORMALITY; SEE BELOW OTHER COMMENTS: (test code = 8081) (NOTE) VICE PRESIDENT OF ENGINEERING: (test code = 8101) HAYLIE Anderson(ASCP) PATHOLOGIST INTERPRETATION BY: (test code = 8122) Dylan Holland LOCATION: (test code = 73765) (NOTE) CPT: (test code = 8140) (NOTE) PAP TEST, THINPREP, [id number] 00:00:00* Test Item Value Reference Range Interpretation Comme nts SOURCE: (test code = 8001) Cervical/Endo cervic al SLIDES: (test code = 8011) 1 LMP: (test code = 8021) 08/05/2021 SPECIMEN ADEQUACY: (test code = 04953) (NOTE) INTERPRETATION: (test code = 30572) ASCUS/EPITH. ABNORMALITY; SEE BELOW OTHER COMMENTS: (test code = 8081) (NOTE) VICE PRESIDENT OF ENGINEERING: (test code = 8101) HAYLIE Anderson(ASCP) PATHOLOGIST INTERPRETATION BY: (test code = 8122) Dylan Holland LOCATION: (test code = 89324) (NOTE) CPT: (test code = 8140) (NOTE) CT/NG, TMA, [id number] 19:19:14* Test Item Value Reference Range Interpretation Comme nts GONORRHEA, TMA (test code = 88705) NEGATIVE NEGATIVE Assay methodolog y is nucleic acid amplification by agronomy technician mediated amplification (TMA) utilizing the Aptima Combo 2 Assay. CHLAMYDIA, TMA (test code = 75184) NEGATIVE NEGATIVE Assay methodolog y is nucleic acid amplification by agronomy technician mediated amplification (TMA) utilizing the Aptima Combo 2 Assay. HPV HIGH RISK WITH GENOTYPE, [id number] 16:29:18* Test Item Value Reference Range Interpretation Comme nts HPV HIGH RISK INTERP (test code = 90761) POSITIVE NEGATIVE A HPV 16 (test code = 31385) NEGATIVE HPV 18 (test code = 05289) NEGATIVE HPV, HR, OTHER GENOTYPES (test code = 62633) POSITIVE A Testing methodol ogy is real-time [...] error. UNLESS OTHERWISE INDICATED, ALL TESTING PERFORMED [facility] [address] [place] [address] EMR ANALYST: TERRI MCCRARY M.D. CLIA NUMBER [id number] [place]. [id number] VAGINAL PATHOGENS DNA [id number] 14:49:20* Test Item Value Reference Range Interpretation Comme [facility] DWIGHT SPECIES (test code = 21459) NEGATIVE NEGATIVE G. VAGINALIS (test code = 51221) POSITIVE NEGATIVE A T. VAGINALIS (test code = 85765) NEGATIVE NEGATIVE UNLESS OTHERWISE INDICATED, ALL TESTING PERFORMED [facility] [address] [place] [address] EMR ANALYST: TERRI MCCRARY M.D. CLIA NUMBER [id number] [place]. [id number] HIV 1/2 4TH GEN, RFLX [id number] 05:59:23* Test Item Value Reference Range Interpretation Comme [facility] HIV 1/2 4TH GEN, RFLX CONF ( test code = 3514) NON-REACTIVE NON-REACTIVE HEPATITIS PANEL, [id number] 05:59:23* Test Item Value Reference Range Interpretation Comme nts HEPATITIS A IgM (test code = 52823) NON-REACTIVE NON-REACTIVE HEPATITIS B CORE IgM (test code = 4644) NON-REACTIVE NON-REACTIVE HEPATITIS B SURF AG (test code = 2739) NON-REACTIVE NON-REACTIVE HEPATITIS C ANTIBODY (test code = 4675) NON-REACTIVE NON-REACTIVE INTERPRETATION HEPATITIS A: (test code = 2552) (NOTE) Hepatitis A serology shows no evidence of acute hepatitis A. INTERPRETATION HEPATITIS B: (test code = 26998) (NOTE) Hepatitis B serology shows no evidence of acute hepatitis B andno indication of exposure to hepatitis B virus in the previous kiko eight months. INTERPRETATION HEPATITIS C: (test code = 48732) (NOTE) Hepatitis C serology shows no evidence of exposure to hepatitisC virus at this time. It can take up to 12 months after exposure tothe hepatitis C virus for antibodies to become detectable in the blood in certain patients. [id number] 05:28:14* Test Item Value Reference Range Interpretation Comme nts RPR RESULT (test code = 3501) NON-REACTIVE NON-REACTIVE RPR TITER (test code = 3500) NOT INDIC. TITER NOT INDIC. HIV AB/AG COMBO RFLX [id number] 00:00:00* Test Item Value Reference Range Interpretation Comme nts HIV 1/2 4TH GEN, RFLX CONF ( test code = 3514) NON-REACTIVE Azam RaphaelACUTE HEPATITIS [id number] 00:00:00* Test Item Value Reference Range Interpretation Comme nts HEPATITIS A IgM (test code = 85706) NON-REACTIVE HEPATITIS B CORE IgM (test c ode = 4644) NON-REACTIVE HEPATITIS B SURF AG (test co de = 2739) NON-REACTIVE HEPATITIS C ANTIBODY (test c ode = 4675) NON-REACTIVE INTERPRETATION HEPATITIS A: (test code = 2552) (NOTE) INTERPRETATION HEPATITIS B: (test code = 38612) (NOTE) INTERPRETATION HEPATITIS C: (test code = 24483) (NOTE) Azam Vallejo [id number] 00:00:00* Test Item Value Reference Range Interpretation Comme nts RPR RESULT (test code = 3501) NON-REACTIVE RPR TITER (test code = 3500) NOT INDIC. TITER Azam RaphaelHPV HIGH RISK WITH GENOTYPE, [id number] 00:00:00* Test Item Value Reference Range Interpretation Comme [facility] HPV HIGH RISK INTERP (test c ode = 90720) POSITIVE HPV 16 (test code = 34142) NEGATIVE HPV 18 (test code = 24511) NEGATIVE HPV, HR, OTHER GENOTYPES (te st code = 83567) POSITIVE Azam RaphaelVAGINAL PATHOGENS DNA PANEL [ADDED]2021-08-16 00:00:00* Test Item Value Reference Range Interpretation Comme nts DWIGHT SPECIES (test code = ) NEGATIVE G. VAGINALIS (test code = ) POSITIVE T. VAGINALIS (test code = ) NEGATIVE Azam RaphaelHIV AB/AG COMBO RFLX [id number] 00:00:00* Test Item Value Reference Range Interpretation Comme nts HIV 1/2 4TH GEN, RFLX CONF ( test code = 3514) NON-REACTIVE Azam RaphaelGC AND CHLAMYDIA AMPLIFIED, [id number] 00:00:00* Test Item Value Reference Range Interpretation Comme nts GONORRHEA, TMA (test code = 66071) NEGATIVE CHLAMYDIA, TMA (test code = 54207) NEGATIVE Azam RaphaelACUTE HEPATITIS [id number] 00:00:00* Test Item Value Reference Range Interpretation Comme nts HEPATITIS A IgM (test code = 13498) NON-REACTIVE HEPATITIS B CORE IgM (test c ode = 4644) NON-REACTIVE HEPATITIS B SURF AG (test co de = 2739) NON-REACTIVE HEPATITIS C ANTIBODY (test c ode = 4675) NON-REACTIVE INTERPRETATION HEPATITIS A: (test code = 2552) (NOTE) INTERPRETATION HEPATITIS B: (test code = 12347) (NOTE) INTERPRETATION HEPATITIS C: (test code = 42540) (NOTE) Azam [id number] 00:00:00* Test Item Value Reference Range Interpretation Comme nts RPR RESULT (test code = 3501) NON-REACTIVE RPR TITER (test code = 3500) NOT INDIC. TITER Azam RaphaelHPV HIGH RISK WITH GENOTYPE, [id number] 00:00:00* Test Item Value Reference Range Interpretation Comme nts HPV HIGH RISK INTERP (test c ode = 97456) POSITIVE HPV 16 (test code = 46157) NEGATIVE HPV 18 (test code = 59548) NEGATIVE HPV, HR, OTHER GENOTYPES (te st code = 64199) POSITIVE Azam RaphaelVAGINAL PATHOGENS DNA PANEL [ADDED]2021-08-16 00:00:00* Test Item Value Reference Range Interpretation Comme nts DWIGHT SPECIES (test code = ) NEGATIVE G. VAGINALIS (test code = 17580) POSITIVE T. VAGINALIS (test code = 24760) NEGATIVE Azam RaphaelGC AND CHLAMYDIA AMPLIFIED, [id number] 00:00:00* Test Item Value Reference Range Interpretation Comme nts GONORRHEA, TMA (test code = 40580) NEGATIVE CHLAMYDIA, TMA (test code = 78310) NEGATIVE Azam RaphaelHIV AB/AG COMBO RFLX [id number] 00:00:00* Test Item Value Reference Range Interpretation Comme nts HIV 1/2 4TH GEN, RFLX CONF ( test code = 3514) NON-REACTIVE Azam RaphaelACUTE HEPATITIS [id number] 00:00:00* Test Item Value Reference Range Interpretation Comme nts HEPATITIS A IgM (test code = 35273) NON-REACTIVE HEPATITIS B CORE IgM (test c ode = 4644) NON-REACTIVE HEPATITIS B SURF AG (test co de = 2739) NON-REACTIVE HEPATITIS C ANTIBODY (test c ode = 4675) NON-REACTIVE INTERPRETATION HEPATITIS A: (test code = 2552) (NOTE) INTERPRETATION HEPATITIS B: (test code = 43836) (NOTE) INTERPRETATION HEPATITIS C: (test code = 17479) (NOTE) Azam [id number] 00:00:00* Test Item Value Reference Range Interpretation Comme nts RPR RESULT (test code = 3501) NON-REACTIVE RPR TITER (test code = 3500) NOT INDIC. TITER Azam RaphaelHPV HIGH RISK WITH GENOTYPE, [id number] 00:00:00* Test Item Value Reference Range Interpretation Comme nts HPV HIGH RISK INTERP (test c ode = 47057) POSITIVE HPV 16 (test code = 22009) NEGATIVE HPV 18 (test code = 25616) NEGATIVE HPV, HR, OTHER GENOTYPES (te st code = 95258) POSITIVE Azam RaphaelVAGINAL PATHOGENS DNA PANEL [ADDED]2021-08-16 00:00:00* Test Item Value Reference Range Interpretation Comme nts DWIGHT SPECIES (test code = 51907) NEGATIVE G. VAGINALIS (test code = 44971) POSITIVE T. VAGINALIS (test code = 79068) NEGATIVE Azam RaphaelGC AND CHLAMYDIA AMPLIFIED, [id number] 00:00:00* Test Item Value Reference Range Interpretation Comme nts GONORRHEA, TMA (test code = 77311) NEGATIVE CHLAMYDIA, TMA (test code = 92739) NEGATIVE Azam RaphaelHIV AB/AG COMBO RFLX [id number] 00:00:00* Test Item Value Reference Range Interpretation Comme nts HIV 1/2 4TH GEN, RFLX CONF ( test code = 3514) NON-REACTIVE Azam RaphaelACUTE HEPATITIS [id number] 00:00:00* Test Item Value Reference Range Interpretation Comme nts HEPATITIS A IgM (test code = 97319) NON-REACTIVE HEPATITIS B CORE IgM (test c ode = 4644) NON-REACTIVE HEPATITIS B SURF AG (test co de = 2739) NON-REACTIVE HEPATITIS C ANTIBODY (test c ode = 4675) NON-REACTIVE INTERPRETATION HEPATITIS A: (test code = 2552) (NOTE) INTERPRETATION HEPATITIS B: (test code = 45530) (NOTE) INTERPRETATION HEPATITIS C: (test code = 60557) (NOTE) Azam [id number] 00:00:00* Test Item Value Reference Range Interpretation Comme nts RPR RESULT (test code = 3501) NON-REACTIVE RPR TITER (test code = 3500) NOT INDIC. TITER Azam RaphaelHPV HIGH RISK WITH GENOTYPE, [id number] 00:00:00* Test Item Value Reference Range Interpretation Comme karolyn HPV HIGH RISK INTERP (test c ode = 85298) POSITIVE HPV 16 (test code = 53449) NEGATIVE HPV 18 (test code = 46840) NEGATIVE HPV, HR, OTHER GENOTYPES (te st code = 12524) POSITIVE Azam RaphaelVAGINAL PATHOGENS DNA PANEL [ADDED]2021-08-16 00:00:00* Test Item Value Reference Range Interpretation Comme nts DWIGHT SPECIES (test code = 21818) NEGATIVE G. VAGINALIS (test code = 36691) POSITIVE T. VAGINALIS (test code = 72006) NEGATIVE Azam RaphaelGC AND CHLAMYDIA AMPLIFIED, [id number] 00:00:00* Test Item Value Reference Range Interpretation Comme nts GONORRHEA, TMA (test code = 68434) NEGATIVE CHLAMYDIA, TMA (test code = 14397) NEGATIVE Azam RaphaelHIV AB/AG COMBO RFLX [id number] 00:00:00* Test Item Value Reference Range Interpretation Comme nts HIV 1/2 4TH GEN, RFLX CONF ( test code = 3514) NON-REACTIVE GC AND CHLAMYDIA AMPLIFIED, [id number] 00:00:00* Test Item Value Reference Range Interpretation Comme nts GONORRHEA, TMA (test code = 20275) NEGATIVE CHLAMYDIA, TMA (test code = 80277) NEGATIVE ACUTE HEPATITIS [id number] 00:00:00* Test Item Value Reference Range Interpretation Comme nts HEPATITIS A IgM (test code = 30210) NON-REACTIVE HEPATITIS B CORE IgM (test c ode = 4644) NON-REACTIVE HEPATITIS B SURF AG (test co de = 2739) NON-REACTIVE HEPATITIS C ANTIBODY (test c ode = 4675) NON-REACTIVE INTERPRETATION HEPATITIS A: (test code = 2552) (NOTE) INTERPRETATION HEPATITIS B: (test code = 95683) (NOTE) INTERPRETATION HEPATITIS C: (test code = 43193) (NOTE) HPV HIGH RISK WITH GENOTYPE, [id number] 00:00:00* Test Item Value Reference Range Interpretation Comme nts HPV HIGH RISK INTERP (test c ode = 87348) POSITIVE HPV 16 (test code = 13768) NEGATIVE HPV 18 (test code = 98163) NEGATIVE HPV, HR, OTHER GENOTYPES (te st code = 25838) POSITIVE [id number] 00:00:00* Test Item Value Reference Range Interpretation Comme nts RPR RESULT (test code = 3501) NON-REACTIVE RPR TITER (test code = 3500) NOT INDIC. TITER VAGINAL PATHOGENS DNA PANEL [ADDED]2021-08-16 00:00:00* Test Item Value Reference Range Interpretation Comme nts DWIGHT SPECIES (test code = 50037) NEGATIVE G. VAGINALIS (test code = 69802) POSITIVE T. VAGINALIS (test code = 42720) NEGATIVE HIV AB/AG COMBO RFLX [id number] 00:00:00* Test Item Value Reference Range Interpretation Comme nts HIV 1/2 4TH GEN, RFLX CONF ( test code = 3514) NON-REACTIVE GC AND CHLAMYDIA AMPLIFIED, [id number] 00:00:00* Test Item Value Reference Range Interpretation Comme nts GONORRHEA, TMA (test code = 10060) NEGATIVE CHLAMYDIA, TMA (test code = 43435) NEGATIVE ACUTE HEPATITIS [id number] 00:00:00* Test Item Value Reference Range Interpretation Comme nts HEPATITIS A IgM (test code = 66938) NON-REACTIVE HEPATITIS B CORE IgM (test c ode = 4644) NON-REACTIVE HEPATITIS B SURF AG (test co de = 2739) NON-REACTIVE HEPATITIS C ANTIBODY (test c ode = 4675) NON-REACTIVE INTERPRETATION HEPATITIS A: (test code = 2552) (NOTE) INTERPRETATION HEPATITIS B: (test code = 91578) (NOTE) INTERPRETATION HEPATITIS C: (test code = 72870) (NOTE) [id number] 00:00:00* Test Item Value Reference Range Interpretation Comme nts RPR RESULT (test code = 3501) NON-REACTIVE RPR TITER (test code = 3500) NOT INDIC. TITER HPV HIGH RISK WITH GENOTYPE, [id number] 00:00:00* Test Item Value Reference Range Interpretation Comme nts HPV HIGH RISK INTERP (test c ode = 36131) POSITIVE HPV 16 (test code = 47724) NEGATIVE HPV 18 (test code = 00826) NEGATIVE HPV, HR, OTHER GENOTYPES (te st code = 53719) POSITIVE VAGINAL PATHOGENS DNA PANEL [ADDED]2021-08-16 00:00:00* Test Item Value Reference Range Interpretation Comme nts DWIGHT SPECIES (test code = 46409) NEGATIVE G. VAGINALIS (test code = 53966) POSITIVE T. VAGINALIS (test code = 19041) NEGATIVE HIV AB/AG COMBO RFLX [id number] 00:00:00* Test Item Value Reference Range Interpretation Comme nts HIV 1/2 4TH GEN, RFLX CONF ( test code = 3514) NON-REACTIVE GC AND CHLAMYDIA AMPLIFIED, [id number] 00:00:00* Test Item Value Reference Range Interpretation Comme nts GONORRHEA, TMA (test code = 05385) NEGATIVE CHLAMYDIA, TMA (test code = 47822) NEGATIVE ACUTE HEPATITIS [id number] 00:00:00* Test Item Value Reference Range Interpretation Comme nts HEPATITIS A IgM (test code = 56756) NON-REACTIVE HEPATITIS B CORE IgM (test c ode = 4644) NON-REACTIVE HEPATITIS B SURF AG (test co de = 2739) NON-REACTIVE HEPATITIS C ANTIBODY (test c ode = 4675) NON-REACTIVE INTERPRETATION HEPATITIS A: (test code = 2552) (NOTE) INTERPRETATION HEPATITIS B: (test code = 70594) (NOTE) INTERPRETATION HEPATITIS C: (test code = 66923) (NOTE) [id number] 00:00:00* Test Item Value Reference Range Interpretation Comme nts RPR RESULT (test code = 3501) NON-REACTIVE RPR TITER (test code = 3500) NOT INDIC. TITER HPV HIGH RISK WITH GENOTYPE, [id number] 00:00:00* Test Item Value Reference Range Interpretation Comme nts HPV HIGH RISK INTERP (test c ode = 16692) POSITIVE HPV 16 (test code = 33762) NEGATIVE HPV 18 (test code = 97136) NEGATIVE HPV, HR, OTHER GENOTYPES (te st code = 25358) POSITIVE VAGINAL PATHOGENS DNA PANEL [ADDED]2021-08-16 00:00:00* Test Item Value Reference Range Interpretation Comme nts DWIGHT SPECIES (test code = ) NEGATIVE G. VAGINALIS (test code = ) POSITIVE T. VAGINALIS (test code = ) NEGATIVE CBC W/AUTO DIFF WITH [id number] 12:09:41* Test Item Value Reference Range Interpretation [...] 0.00-0.10 ABS NUCLEATED RBCS (test code = 07515) 0.00 K/UL 0.00-0.11 TSH, THIRD [id number] 06:48:11* Test Item Value Reference Range Interpretation Comme nts TSH, THIRD GENERATION (test code = 2821) 1.130 UIU/ML 0.400-4.100 UNLESS OTHERWISE INDICATED, ALL TESTING PERFORMED [facility]ENTERLINT[facility]Dem[facility] [employer] [address] [place] [address] EMR ANALYST: TERRI MCCRARY M.D. CLIA NUMBER [id number] [facility] [place]. [id number] LIPID [id number] 06:12:16* Test Item Value Reference Range Interpretation [...] = 2238) 2.13 RATIO <3.22 COMPREHENSIVE METABOLIC [id number] 06:12:16* Test Item Value Reference Range Interpretation Comme nts GLUCOSE (test code = 2217) 89 MG/DL 70-99 BUN (test code = 2207) 12 MG/DL 6-20 CREATININE (test code = 2214) 0.52 MG/DL 0.60-1.30 L eGFR (2020 CKD-EPI) (test code = 69783) 127 ML/MIN/1.73 >60 CALC BUN/CREAT (test code = 2235) 23 RATIO 6-28 SODIUM (test code = 223) 138 MEQ/L 133-146 POTASSIUM (test code = 222) 4.0 MEQ/L 3.5-5.4 CHLORIDE (test code = 2214) 103 MEQ/L 95-107 CARBON DIOXIDE (test code = 2205) 22 MEQ/L 19-31 CALCIUM (test code = 2208) 9.6 MG/DL 8.5-10.5 PROTEIN, TOTAL (test code = 2228) 7.0 G/DL 6.1-8.3 ALBUMIN (test code = 2200) 4.6 G/DL 3.5-5.2 CALC GLOBULIN (test code = 224) 2.4 G/DL 1.9-3.7 CALC A/G RATIO (test code = 223) 1.9 RATIO 1.0-2.6 BILIRUBIN, TOTAL (test code = 2206) 0.6 MG/DL See_Comment [Automated me ssage] The system which generated this result transmitted reference range: <=1.2. The reference range was not used to interpret this result as normal/abnormal. ALKALINE PHOSPHATASE (test code = 2203) 99 U/L 40-114 AST (test code = 2217) 17 U/L 9-40 ALT (test code = 2219) 12 U/L 5-40 LIPID [id number] 00:00:00* Test Item Value Reference Range Interpretation Comme nts CHOLESTEROL (test code = 2210) 192 MG/DL TRIGLYCERIDES (test code = 2232) 78 MG/DL HDL CHOLESTEROL (test code = 2220) 56 MG/DL CALC LDL CHOL (test code = 223) 119 MG/DL RISK RATIO LDL/HDL (test cod e = 2238) 2.13 RATIO Azam F DonavonCOMPREHENSIVE METABOLIC [id number] 00:00:00* Test Item Value Reference Range Interpretation Comme nts GLUCOSE (test code = 2217) 89 MG/DL BUN (test code = 2208) 12 MG/DL CREATININE (test code = 2214) 0.52 MG/DL eGFR (2020 CKD-EPI) (test code = 37290) 127 ML/MIN/1.73 CALC BUN/CREAT (test code = [...] (test code = 2219) 12 U/L Azam [id number] 00:00:00* Test Item Value Reference Range Interpretation Comme nts TSH, THIRD GENERATION (test code = 2821) 1.130 UIU/ML Azam RaphaelCBC W/AUTO [id number] 00:00:00* Test Item Value Reference Range Interpretation [...] ABS NUCLEATED RBCS (test cod e = 54731) 0.00 K/UL Azam [place]lejo [place] BeachLIPID [id number] 00:00:00* Test Item Value Reference Range Interpretation Comme nts CHOLESTEROL (test code = 2210) 192 MG/DL TRIGLYCERIDES (test code = 2232) 78 MG/DL HDL CHOLESTEROL (test code = 2220) 56 MG/DL CALC LDL CHOL (test code = 2237) 119 MG/DL RISK RATIO LDL/HDL (test cod e = 2238) 2.13 RATIO Azam RaphaelCOMPREHENSIVE METABOLIC [id number] 00:00:00* Test Item Value Reference Range Interpretation Comme nts GLUCOSE (test code = 2217) 89 MG/DL BUN (test code = 2208) 12 MG/DL CREATININE (test code = 2214) 0.52 MG/DL eGFR (2020 CKD-EPI) (test code = 76210) 127 ML/MIN/1.73 CALC BUN/CREAT (test code = [...] (test code = 2219) 12 U/L Azam [id number] 00:00:00* Test Item Value Reference Range Interpretation Comme nts TSH, THIRD GENERATION (test code = 2821) 1.130 UIU/ML Azam RaphaelCBC W/AUTO [id number] 00:00:00* Test Item Value Reference Range Interpretation [...] ABS NUCLEATED RBCS (test cod e = 57782) 0.00 K/UL Azam RaphaelLIPID [id number] 00:00:00* Test Item Value Reference Range Interpretation Comme nts CHOLESTEROL (test code = 2210) 192 MG/DL TRIGLYCERIDES (test code = 2232) 78 MG/DL HDL CHOLESTEROL (test code = 2220) 56 MG/DL CALC LDL CHOL (test code = 2237) 119 MG/DL RISK RATIO LDL/HDL (test cod e = 2238) 2.13 RATIO Azam RaphaelCOMPREHENSIVE METABOLIC [id number] 00:00:00* Test Item Value Reference Range Interpretation Comme nts GLUCOSE (test code = 2217) 89 MG/DL BUN (test code = 2208) 12 MG/DL CREATININE (test code = 2214) 0.52 MG/DL eGFR (2020 CKD-EPI) (test code = 32260) 127 ML/MIN/1.73 CALC BUN/CREAT (test code = [...] (test code = 2219) 12 U/L Azam [id number] 00:00:00* Test Item Value Reference Range Interpretation Comme nts TSH, THIRD GENERATION (test code = 2821) 1.130 UIU/ML Azam RaphaelCBC W/AUTO [id number] 00:00:00* Test Item Value Reference Range Interpretation [...] ABS NUCLEATED RBCS (test cod e = 67033) 0.00 K/UL Azam Valle[place] BeachLIPID [id number] 00:00:00* Test Item Value Reference Range Interpretation Comme nts CHOLESTEROL (test code = 2210) 192 MG/DL TRIGLYCERIDES (test code = 2232) 78 MG/DL HDL CHOLESTEROL (test code = 2220) 56 MG/DL CALC LDL CHOL (test code = 2237) 119 MG/DL RISK RATIO LDL/HDL (test cod e = 2238) 2.13 RATIO Azam RaphaelCOMPREHENSIVE METABOLIC [id number] 00:00:00* Test Item Value Reference Range Interpretation Comme nts GLUCOSE (test code = 2217) 89 MG/DL BUN (test code = 2208) 12 MG/DL CREATININE (test code = 2214) 0.52 MG/DL eGFR (2020 CKD-EPI) (test code = 65521) 127 ML/MIN/1.73 CALC BUN/CREAT (test code = [...] (test code = 2219) 12 U/L Azam [id number] 00:00:00* Test Item Value Reference Range Interpretation Comme nts TSH, THIRD GENERATION (test code = 2821) 1.130 UIU/ML Azam RaphaelCBC W/AUTO [id number] 00:00:00* Test Item Value Reference Range Interpretation [...] ABS NUCLEATED RBCS (test cod e = 10565) 0.00 K/UL Azam Vallejo AustinCBC W/AUTO [id number] 00:00:00* Test Item Value Reference Range Interpretation [...] ABS NUCLEATED RBCS (test cod e = 32863) 0.00 K/UL LIPID [id number] 00:00:00* Test Item Value Reference Range Interpretation Comme nts CHOLESTEROL (test code = 2210) 192 MG/DL TRIGLYCERIDES (test code = 2232) 78 MG/DL HDL CHOLESTEROL (test code = 2220) 56 MG/DL CALC LDL CHOL (test code = 2237) 119 MG/DL RISK RATIO LDL/HDL (test cod e = 2238) 2.13 RATIO COMPREHENSIVE METABOLIC [id number] 00:00:00* Test Item Value Reference Range Interpretation Comme nts GLUCOSE (test code = 2217) 89 MG/DL BUN (test code = 2208) 12 MG/DL CREATININE (test code = 2214) 0.52 MG/DL eGFR (2020 CKD-EPI) (test code = 54577) 127 ML/MIN/1.73 CALC BUN/CREAT (test code = [...] ALT (test code = 2219) 12 U/L [id number] 00:00:00* Test Item Value Reference Range Interpretation Comme nts TSH, THIRD GENERATION (test code = 2821) 1.130 UIU/ML CBC W/AUTO [id number] 00:00:00* Test Item Value Reference Range Interpretation [...] ABS NUCLEATED RBCS (test cod e = 45553) 0.00 K/UL LIPID [id number] 00:00:00* Test Item Value Reference Range Interpretation Comme nts CHOLESTEROL (test code = 2210) 192 MG/DL TRIGLYCERIDES (test code = 2232) 78 MG/DL HDL CHOLESTEROL (test code = 2220) 56 MG/DL CALC LDL CHOL (test code = 2237) 119 MG/DL RISK RATIO LDL/HDL (test cod e = 2238) 2.13 RATIO COMPREHENSIVE METABOLIC [id number] 00:00:00* Test Item Value Reference Range Interpretation Comme nts GLUCOSE (test code = 2217) 89 MG/DL BUN (test code = 2208) 12 MG/DL CREATININE (test code = 2214) 0.52 MG/DL eGFR (2020 CKD-EPI) (test code = 59107) 127 ML/MIN/1.73 CALC BUN/CREAT (test code = [...] ALT (test code = 2219) 12 U/L [id number] 00:00:00* Test Item Value Reference Range Interpretation Comme nts TSH, THIRD GENERATION (test code = 2821) 1.130 UIU/ML CBC W/AUTO [id number] 00:00:00* Test Item Value Reference Range Interpretation [...] ABS NUCLEATED RBCS (test cod e = 43055) 0.00 K/UL LIPID [id number] 00:00:00* Test Item Value Reference Range Interpretation Comme nts CHOLESTEROL (test code = 2210) 192 MG/DL TRIGLYCERIDES (test code = 2232) 78 MG/DL HDL CHOLESTEROL (test code = 2220) 56 MG/DL CALC LDL CHOL (test code = 2237) 119 MG/DL RISK RATIO LDL/HDL (test cod e = 2238) 2.13 RATIO COMPREHENSIVE METABOLIC [id number] 00:00:00* Test Item Value Reference Range Interpretation Comme nts GLUCOSE (test code = 2217) 89 MG/DL BUN (test code = 2208) 12 MG/DL CREATININE (test code = 2214) 0.52 MG/DL eGFR (2020 CKD-EPI) (test code = 53351) 127 ML/MIN/1.73 CALC BUN/CREAT (test code = 2235) 23 RATIO SODIUM (test code = 2231) 138 MEQ/L POTASSIUM (test code = 2228) 4.0 MEQ/L CHLORIDE (test code = 2215) 103 MEQ/L CARBON DIOXIDE (test code = 2206) 22 MEQ/L CALCIUM (test code = 2209) 9.6 MG/DL PROTEIN, TOTAL (test code = 222) 7.0 G/DL ALBUMIN (test code = 220) 4.6 G/DL CALC GLOBULIN (test code = 2240) 2.4 G/DL CALC A/G RATIO (test code = 2234) 1.9 RATIO BILIRUBIN, TOTAL (test code = 7) 0.6 MG/DL ALKALINE PHOSPHATASE (test code = 2203) 99 U/L AST (test code = 2218) 17 U/L ALT (test code = 2219) 12 U/L [id number] 00:00:00* Test Item Value Reference Range Interpretation Comme nts TSH, THIRD GENERATION (test code = 2821) 1.130 UIU/ML SARS-CoV-2 (COVID-19) by RT-PCR (HIGH RISK)2021-02-01 00:00:00* Test Item Value Reference Range Interpretation Comme nts SARS-CoV-2 INTERPRETATION (t est code = 09010) NEGATIVE SOURCE (test code = 53737) NOT SPECIFIED Azam Vallejo [id number] (COVID-19) by RT-PCR (HIGH RISK)2021-02-01 00:00:00* Test Item Value Reference Range Interpretation Comme nts SARS-CoV-2 INTERPRETATION (t est code = 86133) NEGATIVE SOURCE (test code = 91841) NOT SPECIFIED Azam Vallejo [id number] (COVID-19) by RT-PCR (HIGH RISK)2021-02-01 00:00:00* Test Item Value Reference Range Interpretation Comme nts SARS-CoV-2 INTERPRETATION (t est code = 73168) NEGATIVE SOURCE (test code = 16574) NOT SPECIFIED Azam Vallejo [id number] (COVID-19) by RT-PCR (HIGH RISK)2021-02-01 00:00:00* Test Item Value Reference Range Interpretation Comme nts SARS-CoV-2 INTERPRETATION (t est code = 35751) NEGATIVE SOURCE (test code = 43404) NOT SPECIFIED Azam RaphaelSARS-CoV-2 (COVID-19) by RT-PCR (HIGH RISK)2021-02-01 00:00:00* Test Item Value Reference Range Interpretation Comme nts SARS-CoV-2 INTERPRETATION (t est code = 14703) NEGATIVE SOURCE (test code = 76215) NOT SPECIFIED SARS-CoV-2 (COVID-19) by RT-PCR (HIGH RISK)2021-02-01 00:00:00* Test Item Value Reference Range Interpretation Comme nts SARS-CoV-2 INTERPRETATION (t est code = 66828) NEGATIVE SOURCE (test code = 04968) NOT SPECIFIED SARS-CoV-2 (COVID-19) by RT-PCR (HIGH RISK)2021-02-01 00:00:00* Test Item Value Reference Range Interpretation Comme nts SARS-CoV-2 INTERPRETATION (t est code = 18087) NEGATIVE SOURCE (test code = 95283) NOT SPECIFIED CBC W/AUTO [id number] 00:00:00* Test Item Value Reference Range Interpretation [...] (test code = 1015) 280 K/UL Azam Vallejo DonavonCOMPREHENSIVE METABOLIC [id number] 00:00:00* Test Item Value Reference Range Interpretation Comme nts GLUCOSE (test code = 2217) 112 MG/DL BUN (test code = 2208) 14 MG/DL CREATININE (test code = 2214) 0.90 MG/DL eGFR AMER. (test cod e = 13146) 99 ML/MIN/1.73 eGFR NON- AMER. (test code = 55771) 85 ML/MIN/1.73 CALC BUN/CREAT (test code = [...] (test code = 2219) 22 U/L Azam [id number] 00:00:00* Test Item Value Reference Range Interpretation Comme nts TSH, THIRD GENERATION (test code = 2821) 1.640 UIU/ML Azam RaphaelTRICHOMONAS, URINE, [id number] 00:00:00* Test Item Value Reference Range Interpretation Comme nts TRICHOMONAS, NAAT (test code = 15022) NEGATIVE Azam Vallejo DonavonCBC W/AUTO [id number] 00:00:00* Test Item Value Reference Range Interpretation [...] = 1015) 280 K/UL Azam RaphaelCOMPREHENSIVE METABOLIC [id number] 00:00:00* Test Item Value Reference Range Interpretation Comme nts GLUCOSE (test code = 2217) 112 MG/DL BUN (test code = 2208) 14 MG/DL CREATININE (test code = 2214) 0.90 MG/DL eGFR AMER. (test cod e = 86513) 99 ML/MIN/1.73 eGFR NON- AMER. (test code = 27218) 85 ML/MIN/1.73 CALC BUN/CREAT (test code = [...] (test code = 2219) 22 U/L Azam [id number] 00:00:00* Test Item Value Reference Range Interpretation Comme nts TSH, THIRD GENERATION (test code = 2821) 1.640 UIU/ML Azam RaphaelTRICHOMONAS, URINE, [id number] 00:00:00* Test Item Value Reference Range Interpretation Comme nts TRICHOMONAS, NAAT (test code = 26565) NEGATIVE Azam RaphaelCBC W/AUTO [id number] 00:00:00* Test Item Value Reference Range Interpretation [...] = 1015) 280 K/UL Azam RaphaelCOMPREHENSIVE METABOLIC [id number] 00:00:00* Test Item Value Reference Range Interpretation Comme nts GLUCOSE (test code = 2217) 112 MG/DL BUN (test code = 2208) 14 MG/DL CREATININE (test code = 2214) 0.90 MG/DL eGFR AMER. (test cod e = 96947) 99 ML/MIN/1.73 eGFR NON- AMER. (test code = 62663) 85 ML/MIN/1.73 CALC BUN/CREAT (test code = [...] (test code = 2219) 22 U/L Azam [id number] 00:00:00* Test Item Value Reference Range Interpretation Comme nts TSH, THIRD GENERATION (test code = 2821) 1.640 UIU/ML Azam RaphaelTRICHOMONAS, URINE, [id number] 00:00:00* Test Item Value Reference Range Interpretation Comme nts TRICHOMONAS, NAAT (test code = 70082) NEGATIVE Azam RaphaelCBC W/AUTO [id number] 00:00:00* Test Item Value Reference Range Interpretation [...] = 1015) 280 K/UL Azam RaphaelCOMPREHENSIVE METABOLIC [id number] 00:00:00* Test Item Value Reference Range Interpretation Comme nts GLUCOSE (test code = 2217) 112 MG/DL BUN (test code = 2208) 14 MG/DL CREATININE (test code = 2214) 0.90 MG/DL eGFR AMER. (test cod e = 10591) 99 ML/MIN/1.73 eGFR NON- AMER. (test code = 27295) 85 ML/MIN/1.73 CALC BUN/CREAT (test code = [...] (test code = 2219) 22 U/L Azam [id number] 00:00:00* Test Item Value Reference Range Interpretation Comme nts TSH, THIRD GENERATION (test code = 2821) 1.640 UIU/ML Azam RaphaelTRICHOMONAS, URINE, [id number] 00:00:00* Test Item Value Reference Range Interpretation Comme nts TRICHOMONAS, NAAT (test code = 28337) NEGATIVE Azam RaphaelCBC W/AUTO [id number] 00:00:00* Test Item Value Reference Range Interpretation [...] code = 1015) 280 K/UL COMPREHENSIVE METABOLIC [id number] 00:00:00* Test Item Value Reference Range Interpretation Comme nts GLUCOSE (test code = 2217) 112 MG/DL BUN (test code = 2208) 14 MG/DL CREATININE (test code = 2214) 0.90 MG/DL eGFR AMER. (test cod e = 71702) 99 ML/MIN/1.73 eGFR NON- AMER. (test code = 86111) 85 ML/MIN/1.73 CALC BUN/CREAT (test code = [...] ALT (test code = 2219) 22 U/L [id number] 00:00:00* Test Item Value Reference Range Interpretation Comme nts TSH, THIRD GENERATION (test code = 2821) 1.640 UIU/ML TRICHOMONAS, URINE, [id number] 00:00:00* Test Item Value Reference Range Interpretation Comme nts TRICHOMONAS, NAAT (test code = 24721) NEGATIVE CBC W/AUTO [id number] 00:00:00* Test Item Value Reference Range Interpretation [...] code = 1015) 280 K/UL COMPREHENSIVE METABOLIC [id number] 00:00:00* Test Item Value Reference Range Interpretation Comme nts GLUCOSE (test code = 7) 112 MG/DL BUN (test code = 2208) 14 MG/DL CREATININE (test code = 2214) 0.90 MG/DL eGFR AMER. (test cod e = 94212) 99 ML/MIN/1.73 eGFR NON- AMER. (test code = 93517) 85 ML/MIN/1.73 CALC BUN/CREAT (test code = [...] ALT (test code = 2219) 22 U/L [id number] 00:00:00* Test Item Value Reference Range Interpretation Comme nts TSH, THIRD GENERATION (test code = 2821) 1.640 UIU/ML TRICHOMONAS, URINE, [id number] 00:00:00* Test Item Value Reference Range Interpretation Comme nts TRICHOMONAS, NAAT (test code = 36918) NEGATIVE CBC W/AUTO [id number] 00:00:00* Test Item Value Reference Range Interpretation [...] code = 1015) 280 K/UL COMPREHENSIVE METABOLIC [id number] 00:00:00* Test Item Value Reference Range Interpretation Comme nts GLUCOSE (test code = 2217) 112 MG/DL BUN (test code = 2208) 14 MG/DL CREATININE (test code = 2214) 0.90 MG/DL eGFR AMER. (test cod e = 51594) 99 ML/MIN/1.73 eGFR NON- AMER. (test code = 06267) 85 ML/MIN/1.73 CALC BUN/CREAT (test code = [...] ALT (test code = 2219) 22 U/L [id number] 00:00:00* Test Item Value Reference Range Interpretation Comme nts TSH, THIRD GENERATION (test code = 2821) 1.640 UIU/ML TRICHOMONAS, URINE, [id number] 00:00:00* Test Item Value Reference Range Interpretation Comme nts TRICHOMONAS, NAAT (test code = 57716) NEGATIVE NOTE: [ADDED]2020-06-23 00:00:00* Test Item Value Reference Range Interpretation Comme nts NOTE: (test code = 998) (NOTE) Azam RaphaelHCG, QUANTITATIVE [ADDED]2020-06-23 00:00:00* Test Item Value Reference Range Interpretation Comme nts HCG, QUANTITATIVE (test code = 2506) <5 MIU/ML Azam RaphaelNOTE: [ADDED]2020-06-23 00:00:00* Test Item Value Reference Range Interpretation Comme nts NOTE: (test code = 998) (NOTE) Azam Vallejo AustinHCG, QUANTITATIVE [ADDED]2020-06-23 00:00:00* Test Item Value Reference Range Interpretation Comme nts HCG, QUANTITATIVE (test code = 2506) <5 MIU/ML Azam Vallejo AustinNOTE: [ADDED]2020-06-23 00:00:00* Test Item Value Reference Range Interpretation Comme nts NOTE: (test code = 998) (NOTE) Azam Vallejo AustinHCG, QUANTITATIVE [ADDED]2020-06-23 00:00:00* Test Item Value Reference Range Interpretation Comme nts HCG, QUANTITATIVE (test code = 2506) <5 MIU/ML Azam Vallejo AustinNOTE: [ADDED]2020-06-23 00:00:00* Test Item Value Reference Range Interpretation Comme nts NOTE: (test code = 998) (NOTE) Azam Vallejo AustinHCG, QUANTITATIVE [ADDED]2020-06-23 00:00:00* Test Item Value Reference Range Interpretation Comme nts HCG, QUANTITATIVE (test code = 2506) <5 MIU/ML Azam Vallejo AustinHCG, QUANTITATIVE [ADDED]2020-06-23 00:00:00* Test Item Value Reference [...] NOTE: (test code = 998) (NOTE) CULTURE, [id number] 00:00:00* Test Item Value Reference Range Interpretation Comme nts CULTURE, URINE (test code = 88381) SPECIMEN NUMBER: [id number] Azam CristinaLTURE, [id number] 00:00:00* Test Item Value Reference Range Interpretation Comme nts CULTURE, URINE (test code = 18535) SPECIMEN NUMBER: [id number] Azam CristinaLTURE, [id number] 00:00:00* Test Item Value Reference Range Interpretation Comme nts CULTURE, URINE (test code = 12714) SPECIMEN NUMBER: [id number] Azam RaphaelCULTURE, [id number] 00:00:00* Test Item Value Reference Range Interpretation Comme nts CULTURE, URINE (test code = 35966) SPECIMEN NUMBER: [id number] Azam CristinaLTFLORENTIN, [id number] 00:00:00* Test Item Value Reference Range Interpretation Comme nts CULTURE, URINE (test code = 22321) SPECIMEN NUMBER: [id number] CULTURE, [id number] 00:00:00* Test Item Value Reference Range Interpretation Comme nts CULTURE, URINE (test code = 51420) SPECIMEN NUMBER: [id number] CULTURE, [id number] 00:00:00* Test Item Value Reference Range Interpretation Comme nts CULTURE, URINE (test code = 22805) SPECIMEN NUMBER: [id number] HIV AB/AG COMBO RFLX [id number] 00:00:00* Test Item Value Reference Range Interpretation Comme nts HIV 1/2 4TH GEN, RFLX CONF ( test code = 3514) NON-REACTIVE zAam Vallejo AustinRPR REFLEX TO [id number] 00:00:00* Test Item Value Reference Range Interpretation Comme nts RPR (test code = 49590) NON-REACTIVE RPR TITER (test code = 3500) [...] (NOTE) INTERPRETATION HEPATITIS B: (test code = 50679) (NOTE) INTERPRETATION HEPATITIS C: (test code = 52091) (NOTE) Azam Vallejo AustinHEPATITIS A IgM [REFLEX]2020-06-21 00:00:00* Test Item Value Reference Range Interpretation Comme nts HEPATITIS A IgM (test code = 2728) NON-REACTIVE Azam Vallejo AustinGC AND CHLAMYDIA, AMPLIFIED, [id number] 00:00:00* Test Item Value Reference Range Interpretation Comme nts GONORRHEA, NAAT (test code = 86300) NEGATIVE CHLAMYDIA, NAAT (test code = 89733) NEGATIVE Azam Vallejo AustinHIV AB/AG COMBO RFLX [id number] 00:00:00* Test Item Value Reference Range Interpretation Comme nts HIV 1/2 4TH GEN, RFLX CONF ( test code = 3514) NON-REACTIVE Azam Vallejo AustinRPR REFLEX TO [id number] 00:00:00* Test Item Value Reference Range Interpretation Comme nts RPR (test code = 15933) NON-REACTIVE RPR TITER (test code = 3500) [...] (NOTE) INTERPRETATION HEPATITIS B: (test code = 44215) (NOTE) INTERPRETATION HEPATITIS C: (test code = 86998) (NOTE) Azam Vallejo AustinHEPATITIS A IgM [REFLEX]2020-06-21 00:00:00* Test Item Value Reference Range Interpretation Comme nts HEPATITIS A IgM (test code = 2728) NON-REACTIVE Azam Vallejo AustinGC AND CHLAMYDIA, AMPLIFIED, [id number] 00:00:00* Test Item Value Reference Range Interpretation Comme nts GONORRHEA, NAAT (test code = 44697) NEGATIVE CHLAMYDIA, NAAT (test code = 89321) NEGATIVE Azam Vallejo AustinHIV AB/AG COMBO RFLX [id number] 00:00:00* Test Item Value Reference Range Interpretation Comme nts HIV 1/2 4TH GEN, RFLX CONF ( test code = 3514) NON-REACTIVE Azam Vallejo AustinRPR REFLEX TO [id number] 00:00:00* Test Item Value Reference Range Interpretation Comme nts RPR (test code = 66087) NON-REACTIVE RPR TITER (test code = 3500) [...] (NOTE) INTERPRETATION HEPATITIS B: (test code = 94201) (NOTE) INTERPRETATION HEPATITIS C: (test code = 76843) (NOTE) Azam Vallejo AustinHEPATITIS A IgM [REFLEX]2020-06-21 00:00:00* Test Item Value Reference Range Interpretation Comme nts HEPATITIS A IgM (test code = 2728) NON-REACTIVE Azam RaphaelGC AND CHLAMYDIA, AMPLIFIED, [id number] 00:00:00* Test Item Value Reference Range Interpretation Comme nts GONORRHEA, NAAT (test code = 35293) NEGATIVE CHLAMYDIA, NAAT (test code = 08225) NEGATIVE Azam Vallejo AustinHIV AB/AG COMBO RFLX [id number] 00:00:00* Test Item Value Reference Range Interpretation Comme nts HIV 1/2 4TH GEN, RFLX CONF ( test code = 3514) NON-REACTIVE Azam Vallejo AustinRPR REFLEX TO [id number] 00:00:00* Test Item Value Reference Range Interpretation Comme nts RPR (test code = 52954) NON-REACTIVE RPR TITER (test code = 3500) [...] (NOTE) INTERPRETATION HEPATITIS B: (test code = 97847) (NOTE) INTERPRETATION HEPATITIS C: (test code = 37044) (NOTE) Azam DelucaPATITIS A IgM [REFLEX]2020-06-21 00:00:00* Test Item Value Reference Range Interpretation Comme nts HEPATITIS A IgM (test code = 2728) NON-REACTIVE Azam RaphaelGC AND CHLAMYDIA, AMPLIFIED, [id number] 00:00:00* Test Item Value Reference Range Interpretation Comme nts GONORRHEA, NAAT (test code = 15847) NEGATIVE CHLAMYDIA, NAAT (test code = 25064) NEGATIVE Azam RaphaelGC AND CHLAMYDIA, AMPLIFIED, [id number] 00:00:00* Test Item Value Reference Range Interpretation Comme nts GONORRHEA, NAAT (test code = 16441) NEGATIVE CHLAMYDIA, NAAT (test code = 75039) NEGATIVE HIV AB/AG COMBO RFLX [id number] 00:00:00* Test Item Value Reference Range Interpretation Comme nts HIV 1/2 4TH GEN, RFLX CONF ( test code = 3514) NON-REACTIVE RPR REFLEX TO [id number] 00:00:00* Test Item Value Reference Range Interpretation Comme nts RPR (test code = 57075) NON-REACTIVE RPR TITER (test code = 3500) [...] (NOTE) INTERPRETATION HEPATITIS B: (test code = 20161) (NOTE) INTERPRETATION HEPATITIS C: (test code = 75696) (NOTE) HEPATITIS A IgM [REFLEX]2020-06-21 00:00:00* Test Item Value Reference Range Interpretation Comme nts HEPATITIS A IgM (test code = 2728) NON-REACTIVE GC AND CHLAMYDIA, AMPLIFIED, [id number] 00:00:00* Test Item Value Reference Range Interpretation Comme nts GONORRHEA, NAAT (test code = 71875) NEGATIVE CHLAMYDIA, NAAT (test code = 55101) NEGATIVE HIV AB/AG COMBO RFLX [id number] 00:00:00* Test Item Value Reference Range Interpretation Comme nts HIV 1/2 4TH GEN, RFLX CONF ( test code = 3514) NON-REACTIVE RPR REFLEX TO [id number] 00:00:00* Test Item Value Reference Range Interpretation Comme nts RPR (test code = 66265) NON-REACTIVE RPR TITER (test code = 3500) [...] (NOTE) INTERPRETATION HEPATITIS B: (test code = 63907) (NOTE) INTERPRETATION HEPATITIS C: (test code = 37121) (NOTE) HEPATITIS A IgM [REFLEX]2020-06-21 00:00:00* Test Item Value Reference Range Interpretation Comme nts HEPATITIS A IgM (test code = 2728) NON-REACTIVE GC AND CHLAMYDIA, AMPLIFIED, [id number] 00:00:00* Test Item Value Reference Range Interpretation Comme nts GONORRHEA, NAAT (test code = 81686) NEGATIVE CHLAMYDIA, NAAT (test code = 92289) NEGATIVE HIV AB/AG COMBO RFLX [id number] 00:00:00* Test Item Value Reference Range Interpretation Comme nts HIV 1/2 4TH GEN, RFLX CONF ( test code = 3514) NON-REACTIVE RPR REFLEX TO [id number] 00:00:00* Test Item Value Reference Range Interpretation Comme nts RPR (test code = 14006) NON-REACTIVE RPR TITER (test code = 3500) [...] (NOTE) INTERPRETATION HEPATITIS B: (test code = 44791) (NOTE) INTERPRETATION HEPATITIS C: (test code = 99414) (NOTE) HEPATITIS A IgM [REFLEX]2020-06-21 00:00:00* Test Item Value Reference Range Interpretation Comme nts HEPATITIS A IgM (test code = 2728) NON-REACTIVE VAGINAL PATHOGENS DNA [id number] 00:00:00* Test Item Value Reference Range Interpretation Comme nts DWIGHT SPECIES (test code = 23509) NEGATIVE G. VAGINALIS (test code = 15314) POSITIVE T. VAGINALIS (test code = 88054) NEGATIVE Azam Vallejo AustinHIV AB/AG COMBO RFLX [id number] 00:00:00* Test Item Value Reference Range Interpretation Comme nts HIV 1/2 4TH GEN, RFLX CONF ( test code = 3514) NON-REACTIVE Azam Vallejo [id number] 00:00:00* Test Item Value Reference Range Interpretation Comme nts RPR RESULT (test code = 3501) NON-REACTIVE RPR TITER (test code = 3500) NOT INDIC. TITER Azam Vallejo AustinGC AND CHLAMYDIA, AMPLIFIED, [id number] 00:00:00* Test Item Value Reference Range Interpretation Comme nts GONORRHEA, NAAT (test code = 72752) NEGATIVE CHLAMYDIA, NAAT (test code = 41822) NEGATIVE Azam Vallejo AustinVAGINAL PATHOGENS DNA [id number] 00:00:00* Test Item Value Reference Range Interpretation Comme nts DWIGHT SPECIES (test code = 91908) NEGATIVE G. VAGINALIS (test code = 46017) POSITIVE T. VAGINALIS (test code = 33118) NEGATIVE Azam Vallejo AustinHIV AB/AG COMBO RFLX [id number] 00:00:00* Test Item Value Reference Range Interpretation Comme nts HIV 1/2 4TH GEN, RFLX CONF ( test code = 3514) NON-REACTIVE Azam Vallejo [id number] 00:00:00* Test Item Value Reference Range Interpretation Comme nts RPR RESULT (test code = 3501) NON-REACTIVE RPR TITER (test code = 3500) NOT INDIC. TITER Azam Vallejo AustinGC AND CHLAMYDIA, AMPLIFIED, [id number] 00:00:00* Test Item Value Reference Range Interpretation Comme nts GONORRHEA, NAAT (test code = 59943) NEGATIVE CHLAMYDIA, NAAT (test code = 57401) NEGATIVE Azam RaphaelVAGINAL PATHOGENS DNA [id number] 00:00:00* Test Item Value Reference Range Interpretation Comme nts DWIGHT SPECIES (test code = 99615) NEGATIVE G. VAGINALIS (test code = 75664) POSITIVE T. VAGINALIS (test code = 50329) NEGATIVE Azam Vallejo AustinHIV AB/AG COMBO RFLX [id number] 00:00:00* Test Item Value Reference Range Interpretation Comme nts HIV 1/2 4TH GEN, RFLX CONF ( test code = 3514) NON-REACTIVE Azam Vallejo [id number] 00:00:00* Test Item Value Reference Range Interpretation Comme nts RPR RESULT (test code = 3501) NON-REACTIVE RPR TITER (test code = 3500) NOT INDIC. TITER Azam Vallejo AustinGC AND CHLAMYDIA, AMPLIFIED, [id number] 00:00:00* Test Item Value Reference Range Interpretation Comme nts GONORRHEA, NAAT (test code = 06692) NEGATIVE CHLAMYDIA, NAAT (test code = 01804) NEGATIVE Azam Vallejo AustinVAGINAL PATHOGENS DNA [id number] 00:00:00* Test Item Value Reference Range Interpretation Comme nts DWIGHT SPECIES (test code = 20490) NEGATIVE G. VAGINALIS (test code = 86883) POSITIVE T. VAGINALIS (test code = 64844) NEGATIVE Azam RaphaelHIV AB/AG COMBO RFLX [id number] 00:00:00* Test Item Value Reference Range Interpretation Comme nts HIV 1/2 4TH GEN, RFLX CONF ( test code = 3514) NON-REACTIVE Azam Vallejo [id number] 00:00:00* Test Item Value Reference Range Interpretation Comme nts RPR RESULT (test code = 3501) NON-REACTIVE RPR TITER (test code = 3500) NOT INDIC. TITER Azam Vallejo AustinGC AND CHLAMYDIA, AMPLIFIED, [id number] 00:00:00* Test Item Value Reference Range Interpretation Comme nts GONORRHEA, NAAT (test code = 82052) NEGATIVE CHLAMYDIA, NAAT (test code = 18765) NEGATIVE Azam RaphaelVAGINAL PATHOGENS DNA [id number] 00:00:00* Test Item Value Reference Range Interpretation Comme nts DWIGHT SPECIES (test code = ) NEGATIVE G. VAGINALIS (test code = 60839) POSITIVE T. VAGINALIS (test code = 13232) NEGATIVE HIV AB/AG COMBO RFLX [id number] 00:00:00* Test Item Value Reference Range Interpretation Comme nts HIV 1/2 4TH GEN, RFLX CONF ( test code = 3514) NON-REACTIVE [id number] 00:00:00* Test Item Value Reference Range Interpretation Comme nts RPR RESULT (test code = 3501) NON-REACTIVE RPR TITER (test code = 3500) NOT INDIC. TITER GC AND CHLAMYDIA, AMPLIFIED, [id number] 00:00:00* Test Item Value Reference Range Interpretation Comme nts GONORRHEA, NAAT (test code = 76530) NEGATIVE CHLAMYDIA, NAAT (test code = 90775) NEGATIVE VAGINAL PATHOGENS DNA [id number] 00:00:00* Test Item Value Reference Range Interpretation Comme nts DWIGHT SPECIES (test code = ) NEGATIVE G. VAGINALIS (test code = 27164) POSITIVE T. VAGINALIS (test code = 87991) NEGATIVE HIV AB/AG COMBO RFLX [id number] 00:00:00* Test Item Value Reference Range Interpretation Comme nts HIV 1/2 4TH GEN, RFLX CONF ( test code = 3514) NON-REACTIVE [id number] 00:00:00* Test Item Value Reference Range Interpretation Comme nts RPR RESULT (test code = 3501) NON-REACTIVE RPR TITER (test code = 3500) NOT INDIC. TITER GC AND CHLAMYDIA, AMPLIFIED, [id number] 00:00:00* Test Item Value Reference Range Interpretation Comme nts GONORRHEA, NAAT (test code = 59600) NEGATIVE CHLAMYDIA, NAAT (test code = 27559) NEGATIVE VAGINAL PATHOGENS DNA [id number] 00:00:00* Test Item Value Reference Range Interpretation Comme nts DWIGHT SPECIES (test code = ) NEGATIVE G. VAGINALIS (test code = 71057) POSITIVE T. VAGINALIS (test code = 48829) NEGATIVE HIV AB/AG COMBO RFLX [id number] 00:00:00* Test Item Value Reference Range Interpretation Comme nts HIV 1/2 4TH GEN, RFLX CONF ( test code = 3514) NON-REACTIVE [id number] 00:00:00* Test Item Value Reference Range Interpretation Comme nts RPR RESULT (test code = 3501) NON-REACTIVE RPR TITER (test code = 3500) NOT INDIC. TITER GC AND CHLAMYDIA, AMPLIFIED, [id number] 00:00:00* Test Item Value Reference Range Interpretation Comme nts GONORRHEA, NAAT (test code = 52173) NEGATIVE CHLAMYDIA, NAAT (test code = 57417) NEGATIVE GC AND CHLAMYDIA, AMPLIFIED, [id number] 00:00:00* Test Item Value Reference Range Interpretation Comme nts GONORRHEA, TMA (test code = 31401) NEGATIVE CHLAMYDIA, TMA (test code = 18981) NEGATIVE Azam F AustinGC AND CHLAMYDIA, AMPLIFIED, [id number] 00:00:00* Test Item Value Reference Range Interpretation Comme nts GONORRHEA, TMA (test code = 05025) NEGATIVE CHLAMYDIA, TMA (test code = 91276) NEGATIVE Azma F AustinGC AND CHLAMYDIA, AMPLIFIED, [id number] 00:00:00* Test Item Value Reference Range Interpretation Comme nts GONORRHEA, TMA (test code = 79589) NEGATIVE CHLAMYDIA, TMA (test code = 87320) NEGATIVE Azam F AustinGC AND CHLAMYDIA, AMPLIFIED, [id number] 00:00:00* Test Item Value Reference Range Interpretation Comme nts GONORRHEA, TMA (test code = 41173) NEGATIVE CHLAMYDIA, TMA (test code = 49056) NEGATIVE Azam F AustinGC AND CHLAMYDIA, AMPLIFIED, [id number] 00:00:00* Test Item Value Reference Range Interpretation Comme nts GONORRHEA, TMA (test code = 00874) NEGATIVE CHLAMYDIA, TMA (test code = 32683) NEGATIVE GC AND CHLAMYDIA, AMPLIFIED, [id number] 00:00:00* Test Item Value Reference Range Interpretation Comme nts GONORRHEA, TMA (test code = 07320) NEGATIVE CHLAMYDIA, TMA (test code = 74681) NEGATIVE GC AND CHLAMYDIA, AMPLIFIED, [id number] 00:00:00* Test Item Value Reference Range Interpretation Comme nts GONORRHEA, TMA (test code = 29588) NEGATIVE CHLAMYDIA, TMA (test code = 11554) NEGATIVE PAP TEST, THINPREP, [id number] 00:00:00* Test Item Value Reference Range Interpretation Comme nts SOURCE: (test code = 8001) Cervical/Endocervical SLIDES: (test code = 8011) 1 LMP: (test code = 8021) 08/19/2018 SPECIMEN ADEQUACY: (test code = 18741) (NOTE) INTERPRETATION: (test code = 62261) NILM/NO EPITH. ABNORMALITY;SEE BELOW VICE PRESIDENT OF ENGINEERING: (test code = 8101) HAYLIE MATIAS(ASCP)IAC LOCATION: (test code = 34546) (NOTE) CPT: (test code = 8140) (NOTE) Azam F AustinGC AND CHLAMYDIA AMPLIFIED, [id number] 00:00:00* Test Item Value Reference Range Interpretation Comme nts GONORRHEA, TMA (test code = 07934) TEST NOT PERFORMED CHLAMYDIA, TMA (test code = 91936) TEST NOT PERFORMED Azam F AustinPAP TEST, THINPREP, [id number] 00:00:00* Test Item Value Reference Range Interpretation Comme nts SOURCE: (test code = 8001) Cervical/Endocervical SLIDES: (test code = 8011) 1 LMP: (test code = 8021) 08/19/2018 SPECIMEN ADEQUACY: (test code = 32724) (NOTE) INTERPRETATION: (test code = 14014) NILM/NO EPITH. ABNORMALITY;SEE BELOW VICE PRESIDENT OF ENGINEERING: (test code = 8101) RUSSELL PARCHER,CT(ASCP)IAC LOCATION: (test code = 45898) (NOTE) CPT: (test code = 8140) (NOTE) Aazm F AustinGC AND CHLAMYDIA AMPLIFIED, [id number] 00:00:00* Test Item Value Reference Range Interpretation Comme nts GONORRHEA, TMA (test code = 10892) TEST NOT PERFORMED CHLAMYDIA, TMA (test code = 05979) TEST NOT PERFORMED Azam F AustinPAP TEST, THINPREP, [id number] 00:00:00* Test Item Value Reference Range Interpretation Comme nts SOURCE: (test code = 8001) Cervical/Endocervical SLIDES: (test code = 8011) 1 LMP: (test code = 8021) 08/19/2018 SPECIMEN ADEQUACY: (test code = 88314) (NOTE) INTERPRETATION: (test code = 79374) NILM/NO EPITH. ABNORMALITY;SEE BELOW VICE PRESIDENT OF ENGINEERING: (test code = 8101) RUSSELL MASONCT(ASCP)IAC LOCATION: (test code = 21394) (NOTE) CPT: (test code = 8140) (NOTE) Azam F AustinGC AND CHLAMYDIA AMPLIFIED, [id number] 00:00:00* Test Item Value Reference Range Interpretation Comme nts GONORRHEA, TMA (test code = 46580) TEST NOT PERFORMED CHLAMYDIA, TMA (test code = 87742) TEST NOT PERFORMED Azam F AustinPAP TEST, THINPREP, [id number] 00:00:00* Test Item Value Reference Range Interpretation Comme nts SOURCE: (test code = 8001) Cervical/Endocervical SLIDES: (test code = 8011) 1 LMP: (test code = 8021) 08/19/2018 SPECIMEN ADEQUACY: (test code = 00188) (NOTE) INTERPRETATION: (test code = 80936) NILM/NO EPITH. ABNORMALITY;SEE BELOW VICE PRESIDENT OF ENGINEERING: (test code = 8101) RUSSELL PARISABEL,CT(ASCP)IAC LOCATION: (test code = 68933) (NOTE) CPT: (test code = 8140) (NOTE) Azam RaphaelGC AND CHLAMYDIA AMPLIFIED, [id number] 00:00:00* Test Item Value Reference Range Interpretation Comme nts GONORRHEA, TMA (test code = 24475) TEST NOT PERFORMED CHLAMYDIA, TMA (test code = 44832) TEST NOT PERFORMED Azam RaphaelGC AND CHLAMYDIA AMPLIFIED, [id number] 00:00:00* Test Item Value Reference Range Interpretation Comme nts GONORRHEA, TMA (test code = 32795) TEST NOT PERFORMED CHLAMYDIA, TMA (test code = 53942) TEST NOT PERFORMED PAP TEST, THINPREP, [id number] 00:00:00* Test Item Value Reference Range Interpretation Comme nts SOURCE: (test code = 8001) Cervical/Endocervical SLIDES: (test code = 8011) 1 LMP: (test code = 8021) 08/19/2018 SPECIMEN ADEQUACY: (test code = 63441) (NOTE) INTERPRETATION: (test code = 99457) NILM/NO EPITH. ABNORMALITY;SEE BELOW VICE PRESIDENT OF ENGINEERING: (test code = 8101) RUSSELL PARISABEL,CT(ASCP)IAC LOCATION: (test code = 41449) (NOTE) CPT: (test code = 8140) (NOTE) PAP TEST, THINPREP, [id number] 00:00:00* Test Item Value Reference Range Interpretation Comme nts SOURCE: (test code = 8001) Cervical/Endocervical SLIDES: (test code = 8011) 1 LMP: (test code = 8021) 08/19/2018 SPECIMEN ADEQUACY: (test code = 17306) (NOTE) INTERPRETATION: (test code = 22650) NILM/NO EPITH. ABNORMALITY;SEE BELOW VICE PRESIDENT OF ENGINEERING: (test code = 8101) RUSSELL PARCHER,CT(ASCP)IAC LOCATION: (test code = 11554) (NOTE) CPT: (test code = 8140) (NOTE) GC AND CHLAMYDIA AMPLIFIED, [id number] 00:00:00* Test Item Value Reference Range Interpretation Comme nts GONORRHEA, TMA (test code = 46945) TEST NOT PERFORMED CHLAMYDIA, TMA (test code = 36132) TEST NOT PERFORMED GC AND CHLAMYDIA AMPLIFIED, [id number] 00:00:00* Test Item Value Reference Range Interpretation Comme nts GONORRHEA, TMA (test code = 80226) TEST NOT PERFORMED CHLAMYDIA, TMA (test code = 64549) TEST NOT PERFORMED PAP TEST, THINPREP, [id number] 00:00:00* Test Item Value Reference Range Interpretation Comme nts SOURCE: (test code = 8001) Cervical/Endocervical SLIDES: (test code = 8011) 1 LMP: (test code = 8021) 08/19/2018 SPECIMEN ADEQUACY: (test code = 03594) (NOTE) INTERPRETATION: (test code = 35472) NILM/NO EPITH. ABNORMALITY;SEE BELOW VICE PRESIDENT OF ENGINEERING: (test code = 8101) HAYLIE MATIAS(ASCP)IAC LOCATION: (test code = 16776) (NOTE) CPT: (test code = 8140) (NOTE) HPV HIGH RISK WITH GENOTYPE, [id number] 00:00:00* Test Item Value Reference Range Interpretation Comme [facility] HPV HIGH RISK INTERP (test c ode = 01553) NEGATIVE HPV 16 (test code = 08662) NEGATIVE HPV 18 (test code = 13482) NEGATIVE HPV, HR, OTHER GENOTYPES (te st code = 65106) NEGATIVE Azam RaphaelHIV AB/AG COMBO RFLX [id number] 00:00:00* Test Item Value Reference Range Interpretation Comme [facility] HIV 1/2 4TH GEN, RFLX CONF ( test code = 3514) NON-REACTIVE Azam Vallejo AustinACUTE HEPATITIS [id number] 00:00:00* Test Item Value Reference Range Interpretation Comme [facility] HEPATITIS A IgM (test code = 99516) NON-REACTIVE HEPATITIS B CORE IgM (test c ode = 4644) NON-REACTIVE HEPATITIS B SURF AG (test co de = 5109) NON-REACTIVE HEPATITIS C ANTIBODY (test c ode = 4675) NON-REACTIVE HCV INDEX (test code = 39208) 0.11 INTERPRETATION HEPATITIS A: (test code = 2552) (NOTE) INTERPRETATION HEPATITIS B: (test code = 53456) (NOTE) INTERPRETATION HEPATITIS C: (test code = 71442) (NOTE) Azam [id number] 00:00:00* Test Item Value Reference Range Interpretation Comme nts RPR RESULT (test code = 3501) NON-REACTIVE RPR TITER (test code = 3500) NOT INDIC. TITER Azam RaphaelHPV HIGH RISK WITH GENOTYPE, [id number] 00:00:00* Test Item Value Reference Range Interpretation Comme nts HPV HIGH RISK INTERP (test c ode = 67124) NEGATIVE HPV 16 (test code = 03995) NEGATIVE HPV 18 (test code = 79983) NEGATIVE HPV, HR, OTHER GENOTYPES (te st code = 79665) NEGATIVE Azam Vallejo AustinHIV AB/AG COMBO RFLX [id number] 00:00:00* Test Item Value Reference Range Interpretation Comme nts HIV 1/2 4TH GEN, RFLX CONF ( test code = 3514) NON-REACTIVE Azam RaphaelACUTE HEPATITIS [id number] 00:00:00* Test Item Value Reference Range Interpretation Comme nts HEPATITIS A IgM (test code = 52516) NON-REACTIVE HEPATITIS B CORE IgM (test c ode = 4644) NON-REACTIVE HEPATITIS B SURF AG (test co de = 2739) NON-REACTIVE HEPATITIS C ANTIBODY (test c ode = 4675) NON-REACTIVE HCV INDEX (test code = 04237) 0.11 INTERPRETATION HEPATITIS A: (test code = 2552) (NOTE) INTERPRETATION HEPATITIS B: (test code = 11086) (NOTE) INTERPRETATION HEPATITIS C: (test code = 84449) (NOTE) Azam [id number] 00:00:00* Test Item Value Reference Range Interpretation Comme nts RPR RESULT (test code = 3501) NON-REACTIVE RPR TITER (test code = 3500) NOT INDIC. TITER Azam RaphaelHIV AB/AG COMBO RFLX [id number] 00:00:00* Test Item Value Reference Range Interpretation Comme nts HIV 1/2 4TH GEN, RFLX CONF ( test code = 3514) NON-REACTIVE Azam RaphaelHPV HIGH RISK WITH GENOTYPE, [id number] 00:00:00* Test Item Value Reference Range Interpretation Comme nts HPV HIGH RISK INTERP (test c ode = 17690) NEGATIVE HPV 16 (test code = 25047) NEGATIVE HPV 18 (test code = 35873) NEGATIVE HPV, HR, OTHER GENOTYPES (te st code = 19715) NEGATIVE Azam RaphaelACUTE HEPATITIS [id number] 00:00:00* Test Item Value Reference Range Interpretation Comme nts HEPATITIS A IgM (test code = 52985) NON-REACTIVE HEPATITIS B CORE IgM (test c ode = 4644) NON-REACTIVE HEPATITIS B SURF AG (test co de = 2739) NON-REACTIVE HEPATITIS C ANTIBODY (test c ode = 4675) NON-REACTIVE HCV INDEX (test code = 99579) 0.11 INTERPRETATION HEPATITIS A: (test code = 2552) (NOTE) INTERPRETATION HEPATITIS B: (test code = 30665) (NOTE) INTERPRETATION HEPATITIS C: (test code = 80444) (NOTE) Azam [id number] 00:00:00* Test Item Value Reference Range Interpretation Comme nts RPR RESULT (test code = 3501) NON-REACTIVE RPR TITER (test code = 3500) NOT INDIC. TITER Azam RaphaelHIV AB/AG COMBO RFLX [id number] 00:00:00* Test Item Value Reference Range Interpretation Comme [facility] HIV 1/2 4TH GEN, RFLX CONF ( test code = 3514) NON-REACTIVE Azam RaphaelHPV HIGH RISK WITH GENOTYPE, [id number] 00:00:00* Test Item Value Reference Range Interpretation Comme nts HPV HIGH RISK INTERP (test c ode = 38759) NEGATIVE HPV 16 (test code = 89527) NEGATIVE HPV 18 (test code = 32195) NEGATIVE HPV, HR, OTHER GENOTYPES (te st code = 76317) NEGATIVE Azam RaphaelACUTE HEPATITIS [id number] 00:00:00* Test Item Value Reference Range Interpretation Comme nts HEPATITIS A IgM (test code = 55684) NON-REACTIVE HEPATITIS B CORE IgM (test c ode = 4644) NON-REACTIVE HEPATITIS B SURF AG (test co de = 2739) NON-REACTIVE HEPATITIS C ANTIBODY (test c ode = 4675) NON-REACTIVE HCV INDEX (test code = 51929) 0.11 INTERPRETATION HEPATITIS A: (test code = 2552) (NOTE) INTERPRETATION HEPATITIS B: (test code = 66454) (NOTE) INTERPRETATION HEPATITIS C: (test code = 34434) (NOTE) Azam Vallejo [id number] 00:00:00* Test Item Value Reference Range Interpretation Comme nts RPR RESULT (test code = 3501) NON-REACTIVE RPR TITER (test code = 3500) NOT INDIC. TITER Azam Vallejo [id number] 00:00:00* Test Item Value Reference Range Interpretation Comme nts RPR RESULT (test code = 3501) NON-REACTIVE RPR TITER (test code = 3500) NOT INDIC. TITER HIV AB/AG COMBO RFLX [id number] 00:00:00* Test Item Value Reference Range Interpretation Comme nts HIV 1/2 4TH GEN, RFLX CONF ( test code = 3514) NON-REACTIVE HPV HIGH RISK WITH GENOTYPE, [id number] 00:00:00* Test Item Value Reference Range Interpretation Comme nts HPV HIGH RISK INTERP (test c ode = 01119) NEGATIVE HPV 16 (test code = 10789) NEGATIVE HPV 18 (test code = 99612) NEGATIVE HPV, HR, OTHER GENOTYPES (te st code = 85173) NEGATIVE ACUTE HEPATITIS [id number] 00:00:00* Test Item Value Reference Range Interpretation Comme nts HEPATITIS A IgM (test code = 37947) NON-REACTIVE HEPATITIS B CORE IgM (test c ode = 4644) NON-REACTIVE HEPATITIS B SURF AG (test co de = 2739) NON-REACTIVE HEPATITIS C ANTIBODY (test c ode = 4675) NON-REACTIVE HCV INDEX (test code = 46367) 0.11 INTERPRETATION HEPATITIS A: (test code = 2552) (NOTE) INTERPRETATION HEPATITIS B: (test code = 04591) (NOTE) INTERPRETATION HEPATITIS C: (test code = 67118) (NOTE) [id number] 00:00:00* Test Item Value Reference Range Interpretation Comme nts RPR RESULT (test code = 3501) NON-REACTIVE RPR TITER (test code = 3500) NOT INDIC. TITER HIV AB/AG COMBO RFLX [id number] 00:00:00* Test Item Value Reference Range Interpretation Comme nts HIV 1/2 4TH GEN, RFLX CONF ( test code = 3514) NON-REACTIVE HPV HIGH RISK WITH GENOTYPE, [id number] 00:00:00* Test Item Value Reference Range Interpretation Comme nts HPV HIGH RISK INTERP (test c ode = 52722) NEGATIVE HPV 16 (test code = 05990) NEGATIVE HPV 18 (test code = 16373) NEGATIVE HPV, HR, OTHER GENOTYPES (te st code = 34266) NEGATIVE ACUTE HEPATITIS [id number] 00:00:00* Test Item Value Reference Range Interpretation Comme nts HEPATITIS A IgM (test code = 66659) NON-REACTIVE HEPATITIS B CORE IgM (test c ode = 4644) NON-REACTIVE HEPATITIS B SURF AG (test co de = 2739) NON-REACTIVE HEPATITIS C ANTIBODY (test c ode = 4675) NON-REACTIVE HCV INDEX (test code = 78694) 0.11 INTERPRETATION HEPATITIS A: (test code = 2552) (NOTE) INTERPRETATION HEPATITIS B: (test code = 88172) (NOTE) INTERPRETATION HEPATITIS C: (test code = 10870) (NOTE) [id number] 00:00:00* Test Item Value Reference Range Interpretation Comme nts RPR RESULT (test code = 3501) NON-REACTIVE RPR TITER (test code = 3500) NOT INDIC. TITER HPV HIGH RISK WITH GENOTYPE, [id number] 00:00:00* Test Item Value Reference Range Interpretation Comme [facility] HPV HIGH RISK INTERP (test c ode = 32485) NEGATIVE HPV 16 (test code = 11745) NEGATIVE HPV 18 (test code = 22261) NEGATIVE HPV, HR, OTHER GENOTYPES (te st code = 05694) NEGATIVE HIV AB/AG COMBO RFLX [id number] 00:00:00* Test Item Value Reference Range Interpretation Comme nts HIV 1/2 4TH GEN, RFLX CONF ( test code = 3514) NON-REACTIVE ACUTE HEPATITIS [id number] 00:00:00* Test Item Value Reference Range Interpretation Comme nts HEPATITIS A IgM (test code = 73147) NON-REACTIVE HEPATITIS B CORE IgM (test c ode = 4644) NON-REACTIVE HEPATITIS B SURF AG (test co de = 2739) NON-REACTIVE HEPATITIS C ANTIBODY (test c ode = 4675) NON-REACTIVE HCV INDEX (test code = 69175) 0.11 INTERPRETATION HEPATITIS A: (test code = 2552) (NOTE) INTERPRETATION HEPATITIS B: (test code = 33981) (NOTE) INTERPRETATION HEPATITIS C: (test code = 21430) (NOTE)"
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
--- NOTE | 2024-04-04 17:23 | EDPHYS ---
Physician Documentation [facility] Name: Gwen Cheema Age: 33 yrs Sex: Female : 1990 Arrival Date: 04/04/2024 Time: 16:18 Bed 23 Private MD: ED Physician Nabil Lopez HPI: 04/04 17:19 This 33 yrs old Female presents to ER via Ambulatory with complaints of Scabies. rn 17:19 The patient's rash thought to be caused by scabies. The rash is located on the body rn diffusely. Onset: The symptoms/episode began/occurred 2 day(s) ago. Severity of symptoms: At their worst the symptoms were moderate in the emergency department the symptoms are unchanged. The patient has not experienced similar symptoms in the past. Patient reports exposed to scabies, was a patient that was diagnosed with scabies here a few days ago and now she has noticed an itchy rash that is diffuse. She also reports that she is staying at a hotel that has bedbugs so not sure what it is. No other medical problems or acute complaints. Patient reports has anxiety and bipolar disorder and is feeling very anxious at the moment.. Historical: - Allergies: 17:17 Geodon; ss 17:17 RISPERIDONE; ss 17:17 Zoloft; ss - PMHx: 17:17 Alcoholism; Anxiety; Bipolar disorder; Chronic obstructive lung disease; Depression; ss PTSD; Seizures; - PSHx: 17:17 ruptured ovarian cyst; ss - Social history:: Smoking status: Patient denies any tobacco usage or history of. - Family history:: not pertinent. - Hospitalizations: : No recent hospitalization is reported. ROS: 17:19 Constitutional: Negative for fever, chills, and weight loss, Cardiovascular: Negative rn for chest pain, palpitations, and edema, Respiratory: Negative for shortness of breath, cough, wheezing, and pleuritic chest pain, Abdomen/GI: Negative for abdominal pain, nausea, vomiting, diarrhea, and constipation, Skin: Positive for itching and rash Exam: 17:19 Constitutional: Thin female, no acute distress, ambulatory to room without difficulty rn or assistance Respiratory: Appears anxious, hyperventilating Skin: Erythematous papules on extremities and torso with erythema and linear excoriations. No bullae or fluctuance Vital Signs: 17:16 BP 133 / 93; Pulse 104; Resp 22; Temp 98.4(TE); Pulse Ox 100% on R/A; Height 5 ft. 5 ss in. ; Pain 0/10; 17:16 Pain Scale: Adult ss MDM: 16:21 Medical Screening Exam initiated rn 17:19 Differential diagnosis: Scabies, bedbug bites. Data reviewed: vital signs, nurses rn notes, and as a result, I will discharge patient. Counseling: I had a detailed discussion with the patient and/or guardian regarding the historical points, exam findings, and any diagnostic results supporting the discharge/admit diagnosis, the need for outpatient follow up, to return to the emergency department if symptoms worsen or persist or if there are any questions or concerns that arise at home. Special discussion: I discussed with the patient/guardian in detail that at this point there is no indication for admission to the hospital. It is understood, however, that if the symptoms persist or worsen the patient needs to return immediately for re-evaluation. Administered Medications: No medications were administered Disposition Summary: 04/04/24 17:22 Discharge Ordered Notes: Location: Home rn Problem: new rn Symptoms: are unchanged rn Condition: Stable rn Diagnosis - Scabies rn - Rash and other nonspecific skin eruption rn Followup: rn - With: Private Physician - When: As needed - Reason: Recheck today's complaints, Re-evaluation by your physician Discharge Instructions: - Discharge Summary Sheet rn - Scabies, Adult rn Forms: - Medication Reconciliation Form rn - Antibiotic rn ortho - Prescription Opioid Use rn - Patient Portal Instructions rn - Leadership Thank You Letter rn Prescriptions: - permethrin 5 % Topical cream - apply 1 application TOPICAL route every 14 days for 2 doses apply second rn treatment 14 days after first treatment if live lice remain; 1 unit; Refills: 0, Product Selection Permitted Signatures: Nabil Lopez MD MD rn Blanchard, Shelby, RN RN ss Corrections: (The following items were deleted from the chart) 17:10 16:43 Before Triage ss ss 17:10 16:43 (see nurse's notes) ss ss
[2024-04-04 22:36] VITALS: BP 133/93; TEMP 98.4; O2SAT 100
== END 2024-04-04 17:40 | disposition home or self-care (01) ==
LOC: ER 16:18
DX: B86 Scabies (principal)
CPT/HCPCS: 99283

== ENCOUNTER → 2024-04-04 | Emergency (ER) | payer OTHER ==
--- OUTSIDE RECORDS SUMMARY | 2024-04-04 17:02 | XMS REPORT | Continuity of Care Document ---
Author Name Unknown Address [address] [facility] [address] [place] [address] [facility] Address [address] [facility] [address] [place] [address] Care Team Providers Care Energy Professional Name Role Phone PIOTR ROMERO Primary Care Physician Unavailab YANICK Avelar Attending Clinician Chetan henderson LAB47 Attending Clinician Unavailable SANTA JOY Attending Clinician Unav ailable GUILHERME WILDER Attending Clinician Unavailable GUILHERME WILDER Attending Clinician Unavailable Guilherme Wilder MD Attending Clinician [phone] DR PIOTR ROMERO Attending Clinician Unavailable [id number] Attending Clinician Unavailable [id number] Attending Clinician Unavailable YUN SAMS Attending Clinician UnavailYUN Bhatt Attending Clinician UnavailLAURIE Franco Attending Clinician Unavailable Azam Rooney MD Attending Clinician [phone] Laurie Bowen MD Attending Clinician [phone] CHASITY SALVADOR Attending Clinician Unavailable DIANN PONCE Attending Clinician Unavailable ELLIOT CAMEJO Attending Clinician Unavailable MAYNOR SAMUEL Attending Clinician Unavailable Doctor Unassigned, [place] Attending Clinician U Cathie Xiao MD Attending Clinician [phone] RIVERA PINK Attending Clinician Unavailable CATHIE SUBRAMANIAN Attending Clinician UnavailRivera Bland Attending Clinician [phone] JESSE DONG Attending Clinician Unavailable ERICA KLINE Attending Clinician Unavailable RADIOLOGY Attending Clinician Unavailable Radiology Attending Clinician Unavailable TIMOTEO CISSE Attending Clinician Unavailable Timoteo May Attending Clinician [phone] Karen Burnett PA-C Attending Clinician [phone] KAREN BURNETT Attending Clinician Unavailable Jesse Dong MD Attending Clinician [phone] BRYN BRADLEY Attending Clinician Unavailab roberto STONE Attending Clinician Unavailable RENUKA NELSON Attending Clinician Un available CRAL WORKMAN Attending Clinician Unavailable AMNA CLARK Attending [...] Number Effective Date Expirati on Date Source [facility] [id number] 00:00:00 [facility] [id number] 00:00:00 [facility] 9 [id number] 2024 00:00:00 [facility] W/ AMY STACK [id number] 2023 00:00:00 [facility] 2001 [id number] 2022 00:00:00 [facility] [employer] [id number] 2018 00:00:00 Problems Condition Name Condition Details Condition Category Status Onset Date Resolution Date Last Treatment Date Treating Clinician Comments Source Anxiety Anxiety Disease Active 2023-04 00:00: 00 Amy lilian - Externa l Infection of hand due to bite Infection of hand due to bite Disease Active 12-12 00:00: 00 [facility] Gastroesop hageal reflux disease without esophagiti s Gastroesop hageal reflux disease without esophagiti s Disease Active 2018-04 00:00: 00 [facility] Abnormal maternal glucose tolerance, antepartum Abnormal maternal glucose tolerance, antepartum Disease Active 2018-04 00:00: 00 [facility] Underweigh t Underweigh t Disease Active 01-21 00:00: 00 [facility] History of bipolar disorder History of bipolar disorder Disease Active 01-21 00:00: 00 [facility] Polysubsta nce abuse Polysubsta nce abuse Disease Active 01-17 00:00: 00 [facility] PTSD (post-trau matic stress disorder) PTSD (post-trau matic stress disorder) Disease Active 01-17 00:00: 00 [facility] Trichomona l vulvovagin itis Trichomona l vulvovagin itis Disease Active 10-26 00:00: 00 [facility] Hepatitis C antibody test positive Hepatitis C antibody test positive Disease Active 10-25 00:00: 00 Overview: Formattin g of this note might be different from the original. PCR negative [facility] Multiparit y Multiparit y Disease Active 10-22 00:00: 00 [facility] Eating disorder Eating disorder Disease Active 10-22 00:00: 00 [facility] Anxiety and depression Anxiety and depression Disease Active 10-22 00:00: 00 [facility] Lost custody of children Lost custody of children Disease Active 10-22 00:00: 00 [facility] History of seizures History of seizures Disease Active 10-22 00:00: 00 [facility] Normal delivery Normal delivery Disease Resolve d 2018-04 00:00: 00 2020-05-09 00:00:00 2020-05-09 10:40:05 [facility] Liveborn , of gonzalez , born in hospital by vaginal delivery Liveborn infant, of gonzalez , born in hospital by vaginal delivery Disease Resolve d 2018-04 00:00: 00 2020-05-09 00:00:00 2020-05-09 10:40:00 [facility] 35 weeks gestation of 35 weeks gestation of Disease Resolve d 2018-04 00:00: 00 2020-05-09 00:00:00 2020-05-09 10:39:58 [facility] affected by growth restrictio n affected by growth restrictio n Disease Resolve d 2018-04 00:00: 00 2020-05-09 00:00:00 2020-05-09 10:40:02 [facility] High-risk in third trimester High-risk in third trimester Disease Resolve d 10-22 00:00: 00 2020-05-09 00:00:00 2020-05-09 10:40:09 [facility] affected by intrauteri ne growth retardatio n (IUGR) affected by intrauteri ne growth retardatio n (IUGR) Disease Resolve d 2018-04 00:00: 00 2019-04-04 00:00:00 2019-04-04 08:57:14 [facility] Adult BMI <19 kg/sq m Adult BMI <19 kg/sq m Disease Resolve d 10-22 00:00: 00 2019-03-31 00:00:00 2019-03-31 12:29:44 [facility] Maternal tobacco use in first trimester Maternal tobacco use in first trimester Disease Resolve d 10-22 00:00: 00 2019-01-17 00:00:00 2019-01-17 13:39:40 [facility] Marijuana use Marijuana use Disease Resolve d 10-22 00:00: 00 2019-01-17 00:00:00 2019-01-17 13:40:48 [facility] Alcohol abuse affecting in first trimester Alcohol abuse affecting in first trimester Disease Resolve d 10-22 00:00: 00 2019-01-17 00:00:00 2019-01-17 13:39:46 [facility] Allergies, Adverse Reactions, Alerts Allergy Name [...] Active Hallucinatio ns 2020-0 1-10 00:00: 00 [facility] Risperid one Propensi ty to adverse reaction s Active Hallucinatio ns 0 -10 00:00: 00 [facility] ZIPRASID ONE MESYLATE DRUG INGREDI Active Hallucinates 1-10 00:00: 00 [facility] RISPERID ONE DRUG INGREDI Active Hallucinates 1-10 00:00: 00 [facility] NO KNOWN ALLERGIE S Drug Class Active [facility] No Known Allergie s MA Active UNKNOWN [place] Social History Social Habit Start Date Stop Date Quantity Comments Source Sexual orientation 2023-06-25 10:05:01 Heterosexual (finding) Aym Jacinto - External History SDOH Alcohol Std Drinks [facility] History SDOH Alcohol Binge [facility] History SDOH Alcohol Comment [facility] History of tobacco use Cigarette Smoker Amy walker - External ASSERTION Possible eLx Jacinto - External Alcoholic beverage intake 2024-03-31 00:00:00 2024-03-31 00:00:00 Current drinker of alcohol (finding) Amy Jacinto - External History of Social function 2024-03-31 00:00:00 2024-03-31 00:00:00 Amy Jacinto - External Alcohol intake 2023-08-19 00:00:00 2023-08-19 00:00:00 0 /d [facility] Sex 2023-05-20 14:04:46 2023-05-20 14:04:46 Female (finding) Amy Jacinto - External Exposure to SARS-CoV-2 (event) 2022-04-20 00:00:00 2022-04-30 14:04:00 Not sure [facility] Cigarettes smoked current (pack per day) - Reported 2022-04-30 00:00:00 2022-04-30 00:00:00 [facility] Tobacco use and exposure 2022-04-30 00:00:00 2022-04-30 00:00:00 Smokeless tobacco non-user [facility] Tobacco Comment 2022-04-30 00:00:00 2022-04-30 00:00:00 Has too much stress to quit [facility] Cigarette pack-years 2022-04-30 00:00:00 2022-04-30 00:00:00 [facility] History SDOH Alcohol Frequency 2018-10-22 00:00:00 2018-10-22 00:00:00 1 [facility] Sex assigned at 1990 00:00:00 1990 00:00:00 [...] 2-05 00:00: 00 04-21 05:59 :00 Yes [id number] 10mg Q.[id number] 3D Take 1 tablet (10 mg total) by mouth 3 times daily as needed for anxiety for up to 20 days. Amy Colindres l benzonatate (TESSALON PERLES) capsule 200 mg 01-14 10:45: 00 01-14 10:46 :00 No 200mg 200 mg, Oral, ONCE, 1 dose, On Thu01/15/24 at 0545, JENNIFER [facility] benzonatate 200 mg capsule 01-14 00:00: 00 Yes [id number] 200mg Take 1 capsule by mouth 3 (three) times daily as needed for Cough. [facility] budesonide- formoteroL 80-4.5 mcg/actuati on inhaler 10-10 00:00: 00 Yes [id number] 2{puff} Inhale 2 Puffs in the morning and 2 Puffs in the evening. [facility] predniSONE 20 mg tablet 10-10 00:00: 00 10-18 04:59 :00 No [id number] 20mg Take 1 tablet by mouth in the morning for 7 days. [facility] TAKE 1 TABLET BY MOUTH AT BEDTIME NEEDED 08-24 00:00: 00 Yes Azam Raphael ketorolac (TORADOL) injection 30 mg 08-19 05:00: 00 08-19 04:39 :00 No 30mg 30 mg, Slow IV Push, ONCE NOW, 1 dose, On Thu08/20/23 at 0000, JENNIFER [facility] NaCl 0.9% (NS) bolus infusion 1,000 mL 08-19 05:00: 00 08-19 05:45 :00 No 1000mL at 999 mL/hr, 1,000 mL, IV Piggyback, ONCE, 1 dose, On Thu08/20/23 at 0000, STAT [facility] diclofenac 75 mg EC tablet 2024-0 4-25 00:00: 00 Yes [id number] 75mg Take 1 tablet by mouth in the morning and 1 tablet in the evening. Take with meals. [facility] hydroxyzine HCl 10 mg tablet 07-15 00:00: 00 Yes mg Azam Raphael hydrOXYzine HCl 10 MG oral Tablet 07-15 00:00: 00 03-31 00:00 :00 No [id number] 10mg Q.[id number] 3D Take 1 tablet (10 mg total) by mouth 3 times daily as needed for anxiety for up to 20 days. Amy Sejimmyold - Externa l Mirtazapine 7.5 MG oral Tablet 00:00: 00 03-31 00:00 :00 No [id number] 7.5mg QD Take 1 tablet (7.5 mg total) by mouth nightly. Amy Hernandezold - Externa l 10 ML Q 4 TO 6 HOURS PRN COUGH FOR 5 DAYS 2022-04 00:00: 00 08-30 00:00 :00 No [id number] Azam Raphael ibuprofen (IBU) tablet 800 mg 2022-04 10:30: 00 03-03 09:33 :00 No 800mg 800 mg, Oral, ONCE, 1 dose, On Thu03/03/23 at 0430, Routine [facility] ibuprofen 800 mg tablet 2022-04 00:00: 00 Yes [id number] 800mg Take 1 tablet by mouth every 8 (eight) hours as needed for Alternate with [place] for pain scale 1-3. [facility] KETOROLAC 10MG 2022-04 0-31 00:00: 00 [...] 00:00: 00 Yes 50 Azam Raphael PAXLOVID [id number] 7-24 00:00: 00 Yes Azam Raphael 10 ML Q 4 TO 6 HOURS PRN COUGH FOR 5 DAYS 11-17 00:00: 00 08-30 00:00 :00 No [id number] Azam Raphael 300 MG NIRMATRELVI R (TWO 150 MG TABLETS) WITH 100 MG RITONAVIR (ONE 100 MG TABLET) WITH ALL THREE TABLETS TAKEN TOGETHER ORALLY TWICE DAILY FOR 5 DAYS. 11-17 00:00: 00 08-30 00:00 :00 No Azam Raphael TAKE 1 TABLET DAILY NEEDED. 11-17 00:00: 00 08-30 00:00 :00 No 10 Azam Raphael CLOBETASOL OIN 0.05% 11-11 00:00: 00 Yes Azam Vallejo Donavon TAKE 1 TABLET DAILY. 11-08 00:00: 00 08-30 00:00 :00 No 50 Azam Vallejo Donavon APPLY AND GENTLY MASSAGE INTO AFFECTED AREA(S) TWICE DAILY. 11-08 00:00: 00 08-30 00:00 :00 No 5 Azam Yoni Donavon METHYLPRED 10-20 00:00: 00 Yes Azam Yoni Donavon TAKE 1 TABLET BY MOUTH TWICE DAILY UNTIL ALL TAKEN 10-20 00:00: 00 Yes 500 Azam Raphael APPLY DIRECTED. 10-20 00:00: 00 08-30 00:00 :00 No 2 Azam Raphael FOLLOW DIRECTIONS ON PACKAGE 10-20 00:00: 00 08-30 00:00 :00 No 4 Azam Raphael BUSPIRONE 6- 00:00: 00 Yes Azam Raphael QUETIAPINE 6- 00:00: 00 Yes 25 Azam Raphael TAKE [...] 1-04 14:13: 57 No No known medication [facility] METRONIDAZO L 1-04 00:00: 00 Yes Azam [...] AND DRINK PLENTY OF WATER FOR PAIN 01-07 00:00: 00 No TAKE 1 TABLET BY MOUTH EVERY 8 HOURS WITH FOOD AND DRINK PLENTY OF WATER FOR PAIN 2022-0 9-13 00:00: 00 202- 05-06 00:00 :00 No Azam Raphael BUSPIRONE [...] 10-24 14:15: 00 10-24 13:09 :00 No [id number] 80mL 80 mL, Intravenou s, ONCE, 1 dose, On Kya 10/24/21 at 0915, Routine [facility] ibuprofen 600 mg tablet 10-18 00:00: [...] dose, On Thu09/23/21 at 1530, JENNIFER
[facility] member approving Restricted medication : TIMOTEO CISSE [facility] iopamidol (ISOVUE 370-500 mL) injection 100 mL 09-23 20:00: 09-23 20:15 :00 No [id number] 100mL 100 mL, Intravenou s, ONCE, 1 dose, On 09/23/21 at 1515, Routine [facility] ondansetron (ZOFRAN (PF)) injection 4 mg 09-23 19:45: 00 09-23 19:43 :00 No 4mg 4 mg, Slow IV Push, ONCE, 1 dose, On 09/23/21 at 1445, JENNIF[facility] No known medications 09-23 13:33: 49 No [facility] metronidazo le 500 mg tablet 2022-0 [...] 125 mg tablet 0 3- 00:00: 00 Yes 1mg Azam Raphael ibuprofen 600 mg tablet 0 3- 00:00: 00 Yes 1mg Azam Raphael Dose Unknown 0 3-21 00:00: 00 Yes Azam Raphael Dose Unknown 0 3- 00:00: 00 Yes Azam Raphael Xopenex HFA 45 mcg/actuati on aerosol inhaler 0 3- 00:00: 00 No 1mcg/ac tuation sulfamethox azole 800 mg-trimetho prim 160 mg tablet - 00:00: 00 No 1mg amoxicillin 875 mg-potassiu m clavulanate 125 mg tablet 0 3- 00:00: 00 No 1mg ibuprofen 600 mg tablet 0 3 00:00: 00 No 1mg Dose Unknown 0 3 00:00: 00 No Dose Unknown 0 3 00:00: 00 No Xopenex HFA 45 mcg/actuati [...] Raphael Dose Unknown 2-0 3-13 00:00: 00 No Dose Unknown 2022-0 [...] No known medications 1- 18:00: 03 No [facility] methylpredn isolone 4 mg tablets in [...] 00 No 1mg Flagyl 500 mg tablet 2020-1 0-28 00:00: 00 No 1mg NUVARING 0.12-0.015 mg/24 hr vaginal insert 3-16 00:00: 00 05-23 00:00 :00 No 1{each} Insert 1 Each into vagina once every month. Insert vaginally and leave in place for 3 consecutiv e weeks, then remove for 1 week. [facility] busPIRone 15 mg tablet 2018-04 00:00: 00 05-23 00:00 :00 No [id number] 15mg Take 1 tablet by mouth 2 (two) times daily. [facility] vitamin w/FA tablet 2018-04 00:00: 00 05-23 00:00 :00 No [id number] 1{tbl} Take 1 tablet by mouth daily. [facility] docusate calcium 240 mg capsule 2018-04 00:00: 00 05-23 00:00 :00 No [id number] 240mg Take 1 capsule by mouth once daily as needed for Constipati on. [facility] ferrous sulfate 325 mg (65 mg iron) tablet 2018-04 00:00: 00 05-23 00:00 :00 No [id number] 325mg Take 1 tablet by mouth 2 (two) times daily. [facility] ibuprofen 600 mg tablet 2018-04 00:00: 00 05-23 00:00 :00 No [id number] 600mg Take 1 tablet by mouth every 6 (six) hours as needed (Pain). Take with food or milk. [facility] Immunizations Ordered Immunization Name Filled Immunization Name Date Status Comments Source Tdap Tdap 2023-08-19 00:00:00 Completed Azam Raphael TDAP (ADACEL) VACCINE 2019-03-10 00:00:00 Completed [facility] TDAP (ADACEL) VACCINE 2019-03-10 00:00:00 Completed [facility] TDAP (ADACEL) VACCINE 2019-03-10 00:00:00 Completed [facility] TDAP (ADACEL) VACCINE 2019-03-10 00:00:00 Completed [facility] TDAP (ADACEL) VACCINE 2019-03-10 00:00:00 Completed [facility] TDAP (ADACEL) VACCINE 2019-03-10 00:00:00 Completed [facility] TDAP (ADACEL) VACCINE 2019-03-10 00:00:00 Completed [facility] TDAP (ADACEL) VACCINE 2019-03-10 00:00:00 Completed [facility] TDAP (ADACEL) VACCINE 2019-03-10 00:00:00 Completed [facility] TDAP (ADACEL) VACCINE 2019-03-10 00:00:00 Completed [facility] TDAP (ADACEL) VACCINE 2019-03-10 00:00:00 Completed [facility] TDAP (ADACEL) VACCINE 2019-03-10 00:00:00 Completed [facility] TDAP (ADACEL) VACCINE 2019-03-10 00:00:00 Completed [facility] Tdap Tdap 2019-03-10 00:00:00 Completed Azam Raphael MMR 2012-11-22 00:00:00 Completed [facility] MMR 2012-11-22 00:00:00 Completed [facility] MMR 2012-11-22 00:00:00 Completed [facility] MMR 2012-11-22 00:00:00 Completed [facility] MMR 2012-11-22 00:00:00 Completed [facility] MMR 2012-11-22 00:00:00 Completed [facility] MMR 2012-11-22 00:00:00 Completed [facility] MMR 2012-11-22 00:00:00 Completed [facility] MMR 2012-11-22 00:00:00 Completed [facility] MMR 2012-11-22 00:00:00 Completed [facility] MMR 2012-11-22 00:00:00 Completed [facility] MMR 2012-11-22 00:00:00 Completed [facility] MMR 2012-11-22 00:00:00 Completed [facility] Hep B, adult Hep B, adult 2012-11-22 00:00:00 Completed Azam Raphael MMR MMR 2012-11-22 00:00:00 Completed Azam Raphael HEPATITIS A 2012-10-19 00:00:00 Completed [facility] MMR 2012-10-19 00:00:00 Completed [facility] HEPATITIS A 2012-10-19 00:00:00 Completed [facility] MMR 2012-10-19 00:00:00 Completed [facility] HEPATITIS A 2012-10-19 00:00:00 Completed [facility] MMR 2012-10-19 00:00:00 Completed [facility] HEPATITIS A 2012-10-19 00:00:00 Completed [facility] MMR 2012-10-19 00:00:00 Completed [facility] HEPATITIS A 2012-10-19 00:00:00 Completed [facility] MMR 2012-10-19 00:00:00 Completed [facility] HEPATITIS A 2012-10-19 00:00:00 Completed [facility] MMR 2012-10-19 00:00:00 Completed [facility] HEPATITIS A 2012-10-19 00:00:00 Completed [facility] MMR 2012-10-19 00:00:00 Completed [facility] HEPATITIS A 2012-10-19 00:00:00 Completed [facility] MMR 2012-10-19 00:00:00 Completed [facility] HEPATITIS A 2012-10-19 00:00:00 Completed [facility] MMR 2012-10-19 00:00:00 Completed [facility] HEPATITIS A 2012-10-19 00:00:00 Completed [facility] MMR 2012-10-19 00:00:00 Completed [facility] HEPATITIS A 2012-10-19 00:00:00 Completed [facility] MMR 2012-10-19 00:00:00 Completed [facility] HEPATITIS A 2012-10-19 00:00:00 Completed [facility] MMR 2012-10-19 00:00:00 Completed [facility] HEPATITIS A 2012-10-19 00:00:00 Completed [facility] MMR 2012-10-19 00:00:00 Completed [facility] Hep A, adult Hep A, adult 2012-10-19 00:00:00 Completed Azam Raphael Hep B, adult Hep B, adult 2012-10-19 00:00:00 Completed Azam Raphael Tdap Tdap 2012-10-19 00:00:00 Completed Azam Raphael MMR MMR 2012-10-19 00:00:00 Completed Azam Raphael TDAP (ADACEL) VACCINE Unknown Completed [facility] HEPATITIS A Unknown Completed [facility] MMR Unknown Completed [facility] TDAP (ADACEL) VACCINE Unknown Completed [facility] HEPATITIS A Unknown Completed [facility] MMR Unknown Completed [facility] TDAP (ADACEL) VACCINE Unknown Completed [facility] HEPATITIS A Unknown [facility] TDAP (ADACEL) VACCINE Unknown Completed [facility] HEPATITIS A Unknown [facility] Completed [facility] TDAP (ADACEL) VACCINE Unknown Completed [facility] HEPATITIS A Unknown Completed [facility] MMR Unknown Completed [facility] TDAP (ADACEL) VACCINE Unknown Completed [facility] HEPATITIS A Unknown Completed [facility] MMR Unknown Completed [facility] TDAP (ADACEL) VACCINE Unknown Completed [facility] HEPATITIS A Unknown Completed [facility] MMR Unknown Completed [facility] TDAP (ADACEL) VACCINE Unknown Completed [facility] HEPATITIS A Unknown Completed [facility] MMR Unknown Completed [facility] TDAP (ADACEL) VACCINE Unknown Completed [facility] HEPATITIS A Unknown Completed [facility] MMR Unknown Completed [facility] TDAP (ADACEL) VACCINE Unknown Completed [facility] HEPATITIS A Unknown Completed [facility] MMR Unknown Completed [facility] TDAP (ADACEL) VACCINE Unknown Completed [facility] HEPATITIS A Unknown Completed [facility] MMR Unknown Completed [facility] TDAP Unknown Completed [facility] HEPATITIS A Unknown Completed [facility] MMR Unknown Completed [facility] Vital Signs Vital Name Observation [...] Systolic blood pressure 2024-01-15 08:08:00 134 mm[Hg] [facility] Diastolic blood pressure 2024-01-15 08:08:00 95 mm[Hg] [facility] Heart rate 2024-01-15 08:08:00 73 /min [facility] Body temperature 2024-01-15 08:08:00 37.28 Diya [facility] Respiratory rate 2024-01-15 08:08:00 16 /min [facility] Body height 2024-01-15 08:08:00 167.6 cm [facility] Body weight 2024-01-15 08:08:00 42.593 kg [facility] BMI 2024-01-15 08:08:00 15.16 kg/m2 [facility] Oxygen saturation in Arterial blood by Pulse oximetry 2024-01-15 08:08:00 99 /min [facility] Systolic blood pressure 2023-11-04 07:08:18 102 mm[Hg] [facility] Diastolic blood pressure 2023-11-04 07:08:18 82 mm[Hg] [facility] Heart rate 2023-11-04 07:08:18 87 /min [facility] Body temperature 2023-11-04 07:08:18 36.78 Diya [facility] Respiratory rate 2023-11-04 07:08:18 18 /min [facility] Body height 2023-11-04 07:05:00 167.6 cm [facility] Body weight 2023-11-04 07:05:00 44.135 kg [facility] BMI 2023-11-04 07:05:00 15.70 kg/m2 [facility] Oxygen saturation in Arterial blood by Pulse oximetry 2023-11-04 07:05:00 100 /min [facility] Respiratory Rate 2023-10-27 23:19:00 18 /min Body [...] Systolic blood pressure 2023-10-11 20:58:00 115 mm[Hg] [facility] Diastolic blood pressure 2023-10-11 20:58:00 89 mm[Hg] [facility] Heart rate 2023-10-11 20:58:00 81 /min [facility] Body temperature 2023-10-11 20:58:00 37.11 Diya [facility] Respiratory rate 2023-10-11 20:58:00 18 /min [facility] Oxygen saturation in Arterial blood by Pulse oximetry 2023-10-11 20:58:00 100 /min [facility] Body height 2023-10-11 17:28:00 167.6 cm [facility] Body weight 2023-10-11 17:28:00 42.638 kg [facility] BMI 2023-10-11 17:28:00 15.17 kg/m2 [facility] Heart rate 2023-08-20 05:00:00 100 /min [facility] Respiratory rate 2023-08-20 05:00:00 20 /min [facility] Oxygen saturation in Arterial blood by Pulse oximetry 2023-08-20 05:00:00 99 /min [facility] Systolic blood pressure 2023-08-20 04:10:00 133 mm[Hg] [facility] Diastolic blood pressure 2023-08-20 04:10:00 102 mm[Hg] [facility] Body height 2023-08-20 04:10:00 165.1 cm [facility] [facility] Body weight 2023-08-20 04:10:00 44.453 kg [facility] BMI 2023-08-20 04:10:00 16.31 kg/m2 [facility] Systolic blood pressure 2023-03-03 08:53:00 113 mm[Hg] [facility] Diastolic blood pressure 2023-03-03 08:53:00 91 mm[Hg] [facility] Heart rate 2023-03-03 08:53:00 93 /min [facility] Body temperature 2023-03-03 08:53:00 37.11 Diya [facility] Respiratory rate 2023-03-03 08:53:00 20 /min [facility] Body height 2023-03-03 08:53:00 165.1 cm [facility] Body weight 2023-03-03 08:53:00 45.36 kg [facility] BMI 2023-03-03 08:53:00 16.64 kg/m2 [facility] Oxygen saturation in Arterial blood by Pulse oximetry 2023-03-03 08:53:00 100 /min [facility] Systolic blood pressure 2022-04-30 20:12:00 148 mm[Hg] pt on the phone [facility] Diastolic blood pressure 2022-04-30 20:12:00 103 mm[Hg] pt on the phone [facility] Heart rate 2022-04-30 20:12:00 108 /min [facility] Systolic blood pressure 2021-09-23 23:07:54 117 mm[Hg] [facility] Diastolic blood pressure 2021-09-23 23:07:54 80 mm[Hg] [facility] Heart rate 2021-09-23 23:07:54 78 /min [facility] Respiratory rate 2021-09-23 23:07:54 18 /min [facility] Oxygen saturation in Arterial blood by Pulse oximetry 2021-09-23 23:07:54 98 /min [facility] Body temperature 2021-09-23 18:10:00 36.94 Diya [facility] Body height 2021-09-23 18:10:00 165.1 cm [facility] Body weight 2021-09-23 18:10:00 49.896 kg [facility] BMI 2021-09-23 18:10:00 18.30 kg/m2 [facility] BP Systolic 2023-08-26 15:42:00 110 mm[Hg] Azam [...] Measured 2023-08-19 15:48:00 65.00 inches Azam F [place] Body Temperature 2023-08-19 15:48:00 98.10 degrees Azam [...] CHEST 2 VW 2023-10-11 18:21:26 Yun Sams [facility] CT CERVICAL SPINE WO CONTRAST 2023-10-11 18:17:39 Yun Sams [facility] CT HEAD WO CONTRAST 2023-10-11 18:14:53 Yun Sams [facility] XR HAND 3+ VW RIGHT 2023-08-20 04:38:41 Renata Bowen [facility] POCT TEST 2023-08-20 04:37:00 Renata Bowen [facility] ETHANOL 2023-08-20 04:36:00 Laurie Bowen [facility] NOTICE OF PRIVACY PRACTICES 2023-03-03 08:39:15 Doctor Unassigned, [place] [facility] CONSENT/REFUSAL FOR DIAGNOSIS AND TREATMENT 2023-03-03 08:36:34 Doctor Unassigned, [place] [facility] EXTERNAL PROVIDER RECORDS 2022-07-01 06:01:00 Doctor Unassigned, [place] [facility] AUTHORIZATION FOR RELEASE OF PHI 2021-11-25 05:01:00 Doctor Unassigned, [place] [facility] REFERRAL- REQUEST/RESPONSE 2021-11-11 05:01:00 Doctor Unassigned, [place] [facility] US PELVIS COMPLETE WITH TRANSVAGINAL 2021-10-24 13:17:52 Requisition, Paper [facility] CT THORAX W CONTRAST 2021-10-24 13:08:26 Requisition, Paper [facility] CT THORAX WO CONTRAST 2021-10-24 13:08:08 Requisition, Paper [facility] US PELVIS COMPLETE WITH TRANSVAGINAL 2021-09-23 22:52:01 Timoteo Cisse [facility] CT ABDOMEN PELVIS W CONTRAST 2021-09-23 20:02:13 Timoteo Cisse [facility] COMP. METABOLIC PANEL (66558) 2021-09-23 19:12:00 Timoteo Cisse [facility] CBC WITH DIFF 2021-09-23 19:12:00 Tiomteo Cisse [facility] POCT TEST 2021-09-23 18:47:00 Timoteo Cisse [facility] URINALYSIS 2021-09-23 18:41:00 Timoteo Cisse [facility] NOTICE OF PRIVACY PRACTICES 2021-09-23 17:59:15 Doctor Unassigned, [place] [facility] CONSENT/REFUSAL FOR DIAGNOSIS AND TREATMENT 2021-09-23 17:59:01 Doctor Unassigned, [place] [facility] [id number] Colposcopy Cervix Bx Cervix endocrv Curtg 2021-08-29 00:00:00 Azam Raphael Therapeutic, prophylactic, or diagnostic injection; intravenous push, sing [facility] Therapeutic, prophylactic, or diagnostic injection; each additional sequen [facility] Plan of Care Planned Activity Planned Date Details Comments Source Goal Plan of Care Note [code = 18961-2] Goal Plan of Care Note [code = 52968-5] Goal Plan of Care Note [code = 16907-4] Goal Plan of Care Note [code = 14169-2] Goal Plan of Care Note [code = 46867-6] Goal Plan of Care Note [code = 88063-7] Goal Plan of Care Note [code = 70258-8] Goal Plan of Care Note [code = 90007-6] Goal Plan of Care Note [code = 25918-0] Goal Plan of Care Note [code = 01341-3] Goal Plan of Care Note [code = 07628-1] Goal Plan of Care Note [code = 40582-1] Goal Plan of Care Note [code = 76259-2] Goal Plan of Care Note [code = 62938-5] Goal Plan of Care Note [code = 67966-4] Goal Plan of Care Note [code = 78047-9] Goal Plan of Care Note [code = 19292-1] Goal Plan of Care Note [code = 12608-1] Goal Plan of Care Note [code = 89213-2] Goal Plan of Care Note [code = 24464-2] Goal Plan of Care Note [code = 50769-9] Goal Plan of Care Note [code = 47327-0] Goal Plan of Care Note [code = 34096-6] Goal Plan of Care Note [code = 51061-5] Goal Plan of Care Note [code = 58288-6] Goal Plan of Care Note [code = 60461-5] Goal Plan of Care Note [code = 38632-8] Goal Plan of Care Note [code = 77798-1] Goal Plan of Care Note [code = 21463-1] Goal Plan of Care Note [code = 71558-1] Goal Plan of Care Note [code = 76576-9] Goal Plan of Care Note [code = 91604-4] Goal Plan of Care Note [code = 38633-1] Goal Plan of Care Note [code = 58126-7] Goal Plan of Care Note [code = 46725-2] Goal Plan of Care Note [code = 65629-6] Goal Plan of Care Note [code = 88933-4] Goal Plan of Care Note [code = 03439-0] Goal Plan of Care Note [code = 71191-9] Goal Plan of Care Note [code = 60233-5] Goal Plan of Care Note [code = 39272-3] Goal Plan of Care Note [code = 35723-7] Goal Plan of Care Note [code = 24500-8] Goal Plan of Care Note [code = 41826-4] Goal Plan of Care Note [code = 08529-2] Goal Plan of Care Note [code = 20782-0] Goal Plan of Care Note [code = 07038-1] Goal Plan of Care Note [code = 28394-2] Goal Plan of Care Note [code = 67945-9] Goal Plan of Care Note [code = 20213-2] Goal Plan of Care Note [code = 73037-0] Goal Plan of Care Note [code = 80636-5] Goal Plan of Care Note [code = 17412-7] Goal Plan of Care Note [code = 91247-4] Goal Plan of Care Note [code = 81245-5] Goal Plan of Care Note [code = 48898-3] Goal Plan of Care Note [code = 38120-9] Goal Plan of Care Note [code = 14223-9] Goal Plan of Care Note [code = 47364-6] Goal Plan of Care Note [code = 62431-2] Goal Plan of Care Note [code = 37897-8] Goal Plan of Care Note [code = 83600-5] Goal Plan of Care Note [code = 43329-7] Goal Plan of Care Note [code = 95871-4] Goal Plan of Care Note [code = 57447-6] Goal Plan of Care Note [code = 92329-0] Goal Plan of Care Note [code = 70660-5] Goal Plan of Care Note [code = 70937-9] Goal Plan of Care Note [code = 75175-6] Goal Plan of Care Note [code = 57916-8] Goal Plan of Care Note [code = 79559-1] Goal Plan of Care Note [code = 87016-3] Goal Plan of Care Note [code = 54499-5] Goal Plan of Care Note [code = 18789-1] Goal Plan of Care Note [code = 78266-1] Goal Plan of Care Note [code = 17469-9] Goal Plan of Care Note [code = 84943-0] Goal Plan of Care Note [code = 74105-4] Goal Plan of Care Note [code = 40149-9] Goal Plan of Care Note [code = 64557-7] Goal Plan of Care Note [code = 87327-9] Goal Plan of Care Note [code = 25680-8] Goal Plan of Care Note [code = 22423-2] Goal Plan of Care Note [code = 03859-0] Goal Plan of Care Note [code = 56776-5] Goal Plan of Care Note [code = 79275-8] Goal Plan of Care Note [code = 20079-4] Goal Plan of Care Note [code = 13266-1] Goal Plan of Care Note [code = 40891-6] Goal Plan of Care Note [code = 58160-6] Goal Plan of Care Note [code = 90763-8] Goal Plan of Care Note [code = 82123-7] Goal Plan of Care Note [code = 65174-4] Goal Plan of Care Note [code = 97063-7] Goal Plan of Care Note [code = 78741-8] Goal Plan of Care Note [code = 91486-0] Goal Plan of Care Note [code = 02290-2] Goal Plan of Care Note [code = 90464-6] Goal Plan of Care Note [code = 45480-1] Goal Plan of Care Note [code = 10530-3] Goal Plan of Care Note [code = 88200-4] Goal Plan of Care Note [code = 76533-5] Goal Plan of Care Note [code = 77258-0] Goal Plan of Care Note [code = 88471-5] Goal Plan of Care Note [code = 26876-7] Goal Plan of Care Note [code = 40869-4] Goal Plan of Care Note [code = 17119-3] Goal Plan of Care Note [code = 15651-6] Goal Plan of Care Note [code = 18735-9] Goal Plan of Care Note [code = 67350-0] Goal Plan of Care Note [code = 88277-9] Goal Plan of Care Note [code = 54790-3] Goal Plan of Care Note [code = 26092-9] Goal Plan of Care Note [code = 83046-8] Goal Plan of Care Note [code = 77221-2] Goal Plan of Care Note [code = 96075-7] Goal Plan of Care Note [code = 06937-7] Goal Plan of Care Note [code = 25918-7] Goal Plan of Care Note [code = 33812-8] Goal Plan of Care Note [code = 18050-0] Goal Plan of Care Note [code = 38917-6] Goal Plan of Care Note [code = 98478-5] Goal Plan of Care Note [code = 67109-7] Goal Plan of Care Note [code = 33607-5] Goal Plan of Care Note [code = 20057-7] Goal Plan of Care Note [code = 61054-0] Goal Plan of Care Note [code = 83868-7] Goal Plan of Care Note [code = 87928-3] Goal Plan of Care Note [code = 99579-3] Goal Plan of Care Note [code = 73308-4] Goal Plan of Care Note [code = 25551-9] Goal Plan of Care Note [code = 32799-8] Goal Plan of Care Note [code = 16846-0] Goal Plan of Care Note [code = 47302-9] Goal Plan of Care Note [code = 28759-6] Goal Plan of Care Note [code = 21017-3] Goal Plan of Care Note [code = 00686-1] Goal Plan of Care Note [code = 30243-6] Goal Plan of Care Note [code = 27212-1] Goal Plan of Care Note [code = 41517-4] Goal Plan of Care Note [code = 45386-3] Goal Plan of Care Note [code = 31539-6] Goal Plan of Care Note [code = 40083-7] Goal Plan of Care Note [code = 20474-8] Goal Plan of Care Note [code = 99394-1] Goal Plan of Care Note [code = 39534-0] Goal Plan of Care Note [code = 62604-7] Goal Plan of Care Note [code = 54129-1] Encounters Start Date/Time End Date/Time Encounter Type Admission Type Attending [facility] Care Department Encounter ID Source 2021-02-23 16:17:01 Emergency [facility] [id number] [facility] 2021-02-22 13:07:11 Emergency X [facility] S[facility] [id number] [facility] 2024-03-31 16:15:00 2024-03-31 16:15:00 Outpatient LABTalon MCINTYRE [id number] Amy Jacinto 2024-03-31 14:45:00 2024-03-31 14:45:00 Outpatient [place] [id number] Amy Jacinto 2024-03-29 14:00:00 2024-03-29 14:00:00 Outpatient AMY MCINTYRE [id number] Amy Jacinto 2024-01-15 03:23:00 2024-01-15 06:16:00 Emergency X [facility]ILHERME WILDER [facility] ERT [id number] [facility] 2024-01-15 03:23:00 2024-01-15 06:16:00 Emergency Guilherme Wilder [facility] 1.2.840.114 350.1.13.10 4.2.7.2.686 [id number] [facility] 2023-12-12 19:45:00 2023-12-12 19:45:00 Outpatient AMY MCINTYRE [id number] Amy Jacinto 2023-11-04 02:12:00 2023-11-04 05:20:00 [facility] [id number] [facility] 2023-11-04 02:12:00 2023-11-04 05:20:00 Emergency [facility] 1.2.840.114 350.1.13.10 4.2.7.2.686 [id number] [facility] 2023-10-27 22:19:00 2023-10-28 00:48:00 Outpatient [id number] [id number] 2023-10-27 22:19:00 2023-10-28 00:48:00 Emergency Jane ROMERO PIOTR [id number] [facility] [id number] [place] 2023-10-27 22:19:00 2023-10-27 22:19:00 Abrasion, right knee, initial encounter 10/27/2023 SNOMED-CT 1.3.6.1.4 .1.06071 1.3.6.1.4.1 .77111 [id number]-3 cf1-4ae9-8 [id number] 2023-10-11 12:30:00 2023-10-11 15:59:00 Emergency X YUN SAMS [facility] ERT [id number] [facility] 2023-10-11 12:30:00 2023-10-11 15:59:00 Emergency Yun Sams [facility] 1.2.840.114 350.1.13.10 4.2.7.2.686 [id number] [facility] 2023-08-26 15:32:57 2023-08-26 15:32:57 Outpatient SFA [facility] [id number] Azam Raphael 2023-08-26 00:00:00 2023-08-26 00:00:00 Outpatient Visit [facility] [id number] Azam Raphael 2023-08-19 23:06:00 2023-08-20 01:04:00 Emergency X [facility] ERT [id number] [facility] 2023-08-19 23:06:00 2023-08-20 01:04:00 Emergency Azam Rooney [facility] 1.2.840.114 350.1.13.10 4.2.7.2.686 [id number] [facility] 2023-08-19 00:00:00 2023-08-19 00:00:00 Outpatient Visit [facility] [id number] Azam Raphael 2023-08-14 10:21:08 2023-08-14 10:21:08 Outpatient SFA [facility] [id number] Azam Raphael 2023-08-14 00:00:00 2023-08-14 00:00:00 Outpatient Visit [facility] [id number] Azam Raphael 2023-07-30 09:00:00 2023-07-30 09:00:00 Outpatient CHASITY SALVADOR AMY [id number] [facility] 2023-07-16 18:15:00 2023-07-16 18:15:00 Outpatient PONCEDIANN DOMINGUEZ AMY MCINTYRE [id number] [facility] 2023-07-16 17:55:00 2023-07-16 17:55:00 Outpatient ELLIOT CAMEJO [id number] [facility] 2023-06-25 10:15:00 2023-06-25 10:15:00 Outpatient MAYNOR SAMUEL AMY MCINTYRE [id number] [facility] 2023-06-22 10:12:02 2023-06-22 10:12:02 Outpatient SFA [facility] [id number] Azam Raphael 2023-06-18 16:35:48 2023-06-18 16:35:48 Outpatient [facility] [id number] Azam Raphael 2023-06-18 00:00:00 2023-06-18 00:00:00 Outpatient Visit [facility] [id number] [id number]-a [id number] Azam Raphael 2023-06-08 14:44:09 2023-06-08 14:44:09 Outpatient [facility] [id number] Azam Raphael 2023-06-04 10:48:04 2023-06-04 10:48:04 Outpatient [facility] [id number] Azam Raphael 2023-05-25 08:44:02 2023-05-25 08:44:02 Outpatient SFA [facility] [id number] Azam Raphael 2023-04-21 13:55:33 2023-04-21 13:55:33 Outpatient [facility] [id number] Azam Raphael 2023-04-02 17:25:25 2023-04-02 17:25:25 Outpatient [facility] [id number] Azam Raphael 2023-03-03 02:58:00 2023-03-03 03:49:00 Emergency X GUILHERME WILDER [facility] [id number] [facility] 2023-03-03 02:58:00 2023-03-03 03:49:00 Emergency Guilherme Wilder [facility] 1.840.114 350.1.13.10 4.2.7.2.686 [id number] [facility] 2023-01-07 13:16:59 2023-01-07 13:16:59 Outpatient SFA [facility] [id number] Azam Raphael 2022-12-03 19:26:04 2022-12-03 19:26:04 Outpatient SFA [facility] [id number] Azam Raphael 2022-11-17 13:05:19 2022-11-17 13:05:19 Outpatient SFA [facility] [id number] Azam Raphael 2022-11-10 10:41:21 2022-11-10 10:41:21 Outpatient SFA [facility] [id number] Azam Raphael 2022-11-08 14:16:42 2022-11-08 14:16:42 Outpatient [facility] [id number] Azam Vallejo [place] 2022-10-31 14:26:52 2022-10-31 14:26:52 Outpatient [facility] [id number] Azam Vallejo [place] 2022-10-27 11:18:15 2022-10-27 11:18:15 Outpatient [facility] [id number] Azam Vallejo [place] 2022-10-24 15:42:10 2022-10-24 15:42:10 Outpatient SFA [facility] [id number] Azam Vallejo [place] 2022-07-08 14:24:41 2022-07-08 14:24:41 Outpatient [facility] [id number] Azam Vallejo [place] 2022-07-01 00:00:00 2022-07-01 00:00:00 Orders Only Doctor Unassigned, [place] [facility] 1..840.114 350.1.13.10 4.2.7.2.686 [id number] [facility] 2022-05-07 00:00:00 2022-05-07 00:00:00 Telephone [facility] 1.2.840.114 350.1.13.10 4.2.7.2.686 [id number] [facility] 2022-05-05 00:00:00 2022-05-05 00:00:00 Telephone Cathie Subramanian [facility] 1.2.840.114 350.1.13.10 4.2.7.2.686 [id number] [facility] 2022-05-01 16:00:00 2022-05-01 16:00:00 Outpatient RIVERA RIVERA [facility] [id number] [facility] 2022-04-30 14:30:00 2022-04-30 14:30:00 Office Visit Cathie Subramanian [facility] 1.2.840.114 350.1.13.10 4.2.7.2.686 [id number] [facility] 2022-04-30 14:30:00 2022-04-30 14:22:11 Outpatient R CATHIE SUBRAMANIAN [facility] [id number] [facility] 2022-04-29 14:00:00 2022-04-29 14:00:00 Outpatient RIVERA RIVERA [facility] [id number] [facility] 2022-04-29 00:00:00 2022-04-29 00:00:00 Telephone Rivera Pink [facility] 1.2.840.114 350.1.13.10 4.2.7.2.686 [id number] [facility] 2022-04-28 00:00:00 2022-04-28 00:00:00 Telephone Cathie Subramanian [facility] 1.2.840.114 350.1.13.10 4.2.7.2.686 [id number] [facility] 2022-04-25 10:00:19 2022-04-25 10:00:19 Outpatient S[facility] [id number] Azam Raphael 2022-04-01 14:00:00 2022-04-01 14:00:00 Outpatient JESSE SHIELDS [facility] [id number] [facility] 2022-03-27 13:30:00 2022-03-27 13:30:00 Outpatient JESSE SHIELDS [facility] [id number] [facility] 2022-03-05 00:00:00 2022-03-05 00:00:00 Outpatient Visit [id number] -[id number]-xww [id number]-t 71d-bbd24e 9a5bdc 2022-02-14 09:30:00 2022-02-14 09:30:00 Outpatient ERICA MELENDEZ [facility] [id number] [facility] 2022-02-13 13:45:00 2022-02-13 13:45:00 Outpatient [facility] [id number] Azam Raphael 2022-02-13 00:00:00 2022-02-13 00:00:00 Outpatient Visit [id number] -[id number] 32d-427d-a j50-62y9oc [id number] 2021-11-25 00:00:00 2021-11-25 00:00:00 Orders Only Doctor Unassigned, [place] [facility] 1.2.840.114 350.1.13.10 4.2.7.2.686 [id number] [facility] 2021-11-11 00:00:00 2021-11-11 00:00:00 Orders Only Doctor Unassigned, [place] [facility] 1.2.840.114 350.1.13.10 4.2.7.2.686 [id number] [facility] 2021-10-30 00:00:00 2021-10-30 00:00:00 Outpatient Visit [id number] -xg7g-[id number] [id number]-p [id number] [id number] 2021-10-24 07:29:35 2021-10-24 23:59:00 Outpatient R RADIOLOGY [facility] [id number] [facility] 2021-10-24 07:29:35 2021-10-24 23:59:00 Hospital Encounter Radiology [facility] ([facility] 1.2.840.114 350.1.13.10 4.2.7.2.686 [id number] [facility] 2021-10-24 07:28:55 2021-10-24 07:28:55 Hospital Encounter Radiology [facility] ([facility]) 1.2.840.114 350.1.13.10 4.2.7.2.686 [id number] [facility] 2021-10-24 07:28:21 2021-10-24 07:28:21 Hospital Encounter Radiology [facility] ([facility]) 1.2.840.114 350.1.13.10 4.2.7.2.686 [id number] [facility] 2021-10-24 00:00:00 2021-10-24 00:00:00 Outpatient R RADIOLOGY [facility] [id number] [facility] 2021-09-24 00:00:00 2021-09-24 00:00:00 Patient Secure Msg Doctor Unassigned, [place] [facility] 1.2840.114 350.1.13.10 4.2.7.2.686 [id number] [facility] 2021-09-23 13:12:00 2021-09-23 18:47:00 Emergency X TIM[facility]O [facility] ERT [id number] [facility] 2021-09-23 13:12:00 2021-09-23 18:47:00 Emergency Timoteo Cisse S [facility] 1.2.840.114 350.1.13.10 4.2.7.2.686 [id number] [facility] 2021-09-23 00:00:00 2021-09-23 00:00:00 Orders Only Doctor Unassigned, [place] [facility] 1.284.114 350.1.13.10 4.2.7.2.686 [id number] [facility] 2021-01-07 00:00:00 2021-01-07 00:00:00 Patient Secure Msg Hortencia Karen [facility] 1..840.114 350.1.13.10 4.2.7.2.686 [id number] [facility] 2021-01-03 15:45:00 2021-01-03 15:45:00 Outpatient R [facility] [id number] [facility] 2020-08-09 00:00:00 2020-08-09 00:00:00 Outpatient R HORTENCIA KAREN [facility] [id number] [facility] 2020-06-18 10:00:00 2020-06-18 10:00:00 Outpatient R [facility] [id number] [facility] 2020-06-15 00:00:00 2020-06-15 00:00:00 Patient Secure Msg Jamal Jesse Carroll [facility] 1..840.114 350.1.13.10 4.2.7.2.686 [id number] [facility] 2020-05-23 14:45:00 2020-05-23 14:45:00 Outpatient R KAREN BURNETT [facility] [id number] [facility] 2020-05-17 00:00:00 2020-05-17 00:00:00 Patient Secure Msg Doctor Unassigned, [place] [facility] 1..114 350.1.13.10 4.2.7.2.686 [id number] [facility] 2020-05-15 13:00:00 2020-05-15 13:00:00 Outpatient R [facility] [id number] [facility] 2020-05-11 13:30:00 2020-05-11 13:30:00 Outpatient R [facility] [id number] [facility] 2020-05-09 10:30:00 2020-05-09 10:30:00 Outpatient R KAREN BURNETT [facility] [id number] [facility] 2020-04-13 00:00:00 2020-04-13 00:00:00 Patient Secure Msg Doctor Unassigned, [place] [facility] 1.114 350.1.13.10 4.2.7.2.686 [id number] [facility] 2020-04-12 00:00:00 2020-04-12 00:00:00 Patient Secure Msg Doctor Unassigned, [place] [facility] 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 [facility] 1.114 350.1.13.10 4.2.7.2.686 [id number] [facility] 2020-04-11 00:00:00 2020-04-11 00:00:00 Patient Secure Msg Doctor Unassigned, [place] [facility] 1.114 350.1.13.10 4.2.7.2.686 [id number] [facility] 2020-04-04 09:45:00 2020-04-04 09:45:00 Outpatient R BRYN BRADLEY [facility] [id number] [facility] 2019-12-28 09:15:00 2019-12-28 09:15:00 Outpatient R MARYJANECHAGO YANICK [facility] [id number] [facility] 2019-12-28 05:38:00 2019-12-28 05:38:00 Outpatient FERGUSON_JO HN [facility] [id number] [facility] 2019-12-09 09:26:00 2019-12-09 09:26:00 Outpatient FERGUSON_JO HN [facility] [id number] [facility] 2019-08-04 13:30:00 2019-08-04 13:30:00 Outpatient R [facility] [id number] [facility] 2019-07-25 08:00:00 2019-07-25 08:00:00 Outpatient R AMIRA Hauser [facility] [id number] [facility] 2019-07-18 14:00:00 2019-07-18 14:00:00 Outpatient R [facility] [id number] [facility] 2019-07-18 10:00:00 2019-07-18 10:00:00 [id number] 2019-07-11 15:00:00 2019-07-11 15:00:00 [facility] [facility] [id number] [facility] 2019-06-20 11:00:00 2019-06-20 11:00:00 Outpatient KAREN KEN [facility] [id number] [facility] 2019-05-10 08:56:42 2019-05-10 23:59:00 Outpatient CARL RIVERA [facility] [id number] [facility] 2019-04-28 14:00:00 2019-04-28 14:00:00 Outpatient P AMNA CLARK [facility] [id number] [facility] 2019-04-18 15:00:00 2019-04-18 16:35:19 Outpatient P RUSTAM THRASHER [facility] [id number] [facility] 2019-04-14 15:30:00 2019-04-14 16:09:05 Outpatient P CHRISISRAEL CHRISISRAEL [facility] [id number] [facility] 2019-04-07 09:30:00 2019-04-07 14:57:02 Outpatient P LENNOX CABRERA [facility] [id number] [facility] 2019-01-27 15:00:00 2019-01-27 15:00:00 Outpatient P RUSTAM THRASHER [facility] [id number] [facility] 2019-01-26 14:30:00 2019-01-26 14:25:24 Outpatient P MORRISONAZEB [facility] [id number] [facility] 2018-12-30 10:00:00 2018-12-30 11:14:24 Outpatient P AMNA CLARK [facility] [id number] [facility] 2018-12-29 10:45:00 2018-12-29 10:45:00 Outpatient P NISH GLOVER [facility] [id number] [facility] Results Test Description Test Time Test [...] and soft tissues: No acute osseous abnormality. [facility] CT HEAD WO CONTRAST 2023-09-26 [...] is intact. The intervertebraldisc spaces are preserved. [facility] CT CERVICAL SPINE WO CONTRAST [...] is intact. The intervertebraldisc spaces are preserved. [facility] Azam Vallejo AustinCT/NG, NAAT, [id number] 00:00:00* Test Item Value Reference Range Interpretation Comme nts CHLAMYDIA, NAAT, URINE (test code = 20286) NEGATIVE GONORRHEA, NAAT, URINE (test code = 59785) NEGATIVE Azam RaphaelVAGINAL PATHOGENS DNA [id number] 00:00:00* Test Item Value Reference Range Interpretation Comme nts DWIGHT SPECIES (test code = 14787) NEGATIVE G. VAGINALIS (test code = 21967) NEGATIVE T. VAGINALIS (test code = 86311) NEGATIVE Azam RaphaelCT/NG, NAAT, [id number] 00:00:00* Test Item Value Reference Range Interpretation Comme nts CHLAMYDIA, NAAT, URINE (test code = 46052) NEGATIVE GONORRHEA, NAAT, URINE (test code = 54843) NEGATIVE Azam RaphaelXR HAND 3+ VW [id number] 05:21:49Ordering physician: LAURIE BOWEN INDICATION: Right hand injury COMPARISON: None FINDINGS: 3 views of the right hand. No acute fracture or dislocation isappreciated. There is apparent bony remodeling of the fifth metacarpal,possibly reflecting healed remote fracture.[facility] [id number] 04:37:00* Test Item Value Reference Range Interpretation Comme nts POCT PREG (test code = 1605) Negative On board controls acceptable with C Line (test code = 3574) Yes POCT PREG LOT # (test code = 3575) [id number] POCT PREG TEST DATE ( test code = 3576) 06/03/2024 Lab Interpretation (test cod e = 04029-9) [facility] [id number] 00:00:00* Test Item Value Reference Range Interpretation [...] ABS NUCLEATED RBCS (test cod e = 42467) 0.00 K/UL Azam RaphaelCOMPREHENSIVE METABOLIC [id number] 00:00:00* Test Item Value Reference Range Interpretation Comme nts GLUCOSE (test code = 2217) 110 MG/DL BUN (test code = 2208) 17 MG/DL CREATININE (test code = 2214) 0.72 MG/DL eGFR (2020 CKD-EPI) (test code = 71184) 112 ML/MIN/1.73 CALC BUN/CREAT (test code = [...] 15 U/L Azam RaphaelTSH REFLEX TO FREE [id number] 00:00:00* Test Item Value Reference Range Interpretation Comme nts TSH REFLEX TO FREE T4 (test code = 2834) 0.703 UIU/ML Azam RaphaelHIV 1/2 4TH GEN, RFLX [id number] 00:00:00* Test Item Value Reference Range Interpretation Comme nts HIV 1/2 4TH GEN, RFLX CONF ( test code = 3514) NON-REACTIVE Azam RaphaelRPR REFLEX TO T. PALLIDUM - [id number] 00:00:00* Test Item Value Reference Range Interpretation Comme nts RPR (test code = 59883) NON-REACTIVE RPR TITER (test code = 3500) [...] (NOTE) INTERPRETATION HEPATITIS B: (test code = 76979) (NOTE) INTERPRETATION HEPATITIS C: (test code = 19276) (NOTE) Azam RaphaelHEPATITIS A IgM [REFLEX]2023-08-15 00:00:00* Test Item Value Reference Range Interpretation Comme nts HEPATITIS A IgM (test code = 2728) NON-REACTIVE Azam RaphaelLIPID [id number] 00:00:00* Test Item Value Reference Range Interpretation Comme nts CHOLESTEROL (test code = 2210) 184 MG/DL TRIGLYCERIDES (test code = 2232) 69 MG/DL HDL CHOLESTEROL (test code = 2220) 67 MG/DL CALC LDL CHOL (test code = 2237) 101 MG/DL RISK RATIO LDL/HDL (test cod e = 2238) 1.51 RATIO Azam RaphaelCBC W/AUTO [id number] 00:00:00* Test Item Value Reference Range Interpretation [...] ABS NUCLEATED RBCS (test cod e = 13703) 0.00 K/UL Azam RaphaelCOMPREHENSIVE METABOLIC [id number] 00:00:00* Test Item Value Reference Range Interpretation Comme nts GLUCOSE (test code = 2217) 110 MG/DL BUN (test code = 2208) 17 MG/DL CREATININE (test code = 2214) 0.72 MG/DL eGFR (2020 CKD-EPI) (test code = 13448) 112 ML/MIN/1.73 CALC BUN/CREAT (test code = [...] 15 U/L Azam RaphaelTSH REFLEX TO FREE [id number] 00:00:00* Test Item Value Reference Range Interpretation Comme nts TSH REFLEX TO FREE T4 (test code = 2834) 0.703 UIU/ML Azam RaphaelHIV 1/2 4TH GEN, RFLX [id number] 00:00:00* Test Item Value Reference Range Interpretation Comme nts HIV 1/2 4TH GEN, RFLX CONF ( test code = 3514) NON-REACTIVE Azam RaphaelRPR REFLEX TO T. PALLIDUM - [id number] 00:00:00* Test Item Value Reference Range Interpretation Comme nts RPR (test code = 45110) NON-REACTIVE RPR TITER (test code = 3500) [...] (NOTE) INTERPRETATION HEPATITIS B: (test code = 03065) (NOTE) INTERPRETATION HEPATITIS C: (test code = 42226) (NOTE) Azam RaphaelHEPATITIS A IgM [REFLEX]2023-08-15 00:00:00* Test Item Value Reference Range Interpretation Comme nts HEPATITIS A IgM (test code = 2728) NON-REACTIVE Azam RaphaelLIPID [id number] 00:00:00* Test Item Value Reference Range Interpretation Comme nts CHOLESTEROL (test code = 2210) 184 MG/DL TRIGLYCERIDES (test code = 2232) 69 MG/DL HDL CHOLESTEROL (test code = 2220) 67 MG/DL CALC LDL CHOL (test code = 2237) 101 MG/DL RISK RATIO LDL/HDL (test cod e = 2238) 1.51 RATIO Azam RaphaelCBC W/AUTO [id number] 00:00:00* Test Item Value Reference Range Interpretation [...] ABS NUCLEATED RBCS (test cod e = 07116) 0.00 K/UL Azam RaphaelCOMPREHENSIVE METABOLIC [id number] 00:00:00* Test Item Value Reference Range Interpretation Comme nts GLUCOSE (test code = 2217) 110 MG/DL BUN (test code = 2208) 17 MG/DL CREATININE (test code = 2214) 0.72 MG/DL eGFR (2020 CKD-EPI) (test code = 15536) 112 ML/MIN/1.73 CALC BUN/CREAT (test code = [...] U/L Azam Vallejo DonavonTSH REFLEX TO FREE [id number] 00:00:00* Test Item Value Reference Range Interpretation Comme nts TSH REFLEX TO FREE T4 (test code = 2834) 0.703 UIU/ML Azam Vallejo DonavonHIV 1/2 4TH GEN, RFLX [id number] 00:00:00* Test Item Value Reference Range Interpretation Comme nts HIV 1/2 4TH GEN, RFLX CONF ( test code = 3514) NON-REACTIVE Azam Vallejo DonavonRPR REFLEX TO T. PALLIDUM - [id number] 00:00:00* Test Item Value Reference Range Interpretation Comme nts RPR (test code = 02164) NON-REACTIVE RPR TITER (test code = 3500) [...] HEPATITIS C ANTIBODY (test c ode = 0275) NON-REACTIVE INTERPRETATION HEPATITIS A: (test code = 2552) (NOTE) INTERPRETATION HEPATITIS B: (test code = 03059) (NOTE) INTERPRETATION HEPATITIS C: (test code = 08906) (NOTE) Azam F YosiPATITIS A IgM [REFLEX]2023-08-15 00:00:00* Test Item Value Reference Range Interpretation Comme nts HEPATITIS A IgM (test code = 2728) NON-REACTIVE Azam RaphaelLIPID [id number] 00:00:00* Test Item Value Reference Range Interpretation Comme nts CHOLESTEROL (test code = 2210) 184 MG/DL TRIGLYCERIDES (test code = 2232) 69 MG/DL HDL CHOLESTEROL (test code = 2220) 67 MG/DL CALC LDL CHOL (test code = 2237) 101 MG/DL RISK RATIO LDL/HDL (test cod e = 2238) 1.51 RATIO Azam RaphaelCBC W/AUTO [id number] 00:00:00* Test Item Value Reference Range Interpretation [...] ABS NUCLEATED RBCS (test cod e = 96909) 0.00 K/UL Azam RaphaelCOMPREHENSIVE METABOLIC [id number] 00:00:00* Test Item Value Reference Range Interpretation [...] (test code = 2219) 15 U/L Azam RapahelTSH REFLEX TO FREE [id number] 00:00:00* Test Item Value Reference Range Interpretation Comme nts TSH REFLEX TO FREE T4 (test code = 2834) 0.703 UIU/ML Azam Vallejo AustinHIV 1/2 4TH GEN, RFLX [id number] 00:00:00* Test Item Value Reference Range Interpretation Comme nts HIV 1/2 4TH GEN, RFLX CONF ( test code = 3514) NON-REACTIVE Azam RaphaelRPR REFLEX TO T. PALLIDUM - [id number] 00:00:00* Test Item Value Reference Range Interpretation Comme nts RPR (test code = 88240) NON-REACTIVE RPR TITER (test code = 3500) [...] (NOTE) INTERPRETATION HEPATITIS B: (test code = 80448) (NOTE) INTERPRETATION HEPATITIS C: (test code = 34730) (NOTE) Azam RaphaelHEPATITIS A IgM [REFLEX]2023-08-15 00:00:00* Test Item Value Reference Range Interpretation Comme nts HEPATITIS A IgM (test code = 2728) NON-REACTIVE Azam Vallejo AustinLIPID [id number] 00:00:00* Test Item Value Reference Range Interpretation Comme nts CHOLESTEROL (test code = 2210) 184 MG/DL TRIGLYCERIDES (test code = 2232) 69 MG/DL HDL CHOLESTEROL (test code = 2220) 67 MG/DL CALC LDL CHOL (test code = 2237) 101 MG/DL RISK RATIO LDL/HDL (test cod e = 2238) 1.51 RATIO Azam RaphaelHERPES SIMPLEX AB, [id number] 20:04:09* Test Item Value Reference Range Interpretation Comme nts HERPES SIMPLEX AB, IgM (test code = 22117) 1.03 INDEX SEE BELOW H FOR EQUIVOCAL [...] AND COMPARISON TO ACUTE OR CONVALESCENT TYPE-SPECIFIC [id number] HSV2 IgG ASSAYS SHOULD BE CONSIDERED. INTERPRETATION UNITS RANGE ----- ----- NEGATIVE INDEX <=0.89 EQUIVOCAL INDEX 0.90-1.09 POSITIVE INDEX >=1.10 PAP TEST, THINPREP, [id number] 14:19:03* Test Item Value Reference Range Interpretation Comme nts SOURCE: (test code = 8001) Cervical/Endo cervical SLIDES: (test code = 8011) 1 LMP: (test code = 8021) 12/26/2022 SPECIMEN ADEQUACY: (test code = 03649) (NOTE) Satisfactory for evaluation. Endocervical cells/transformation zone component not identified. INTERPRETATION: (test code = 36709) NILM/NO EPITH. ABNORMALITY;S EE BELOW ---- NEGATIVE FOR INTRAEPITHELIAL LESION OR MALIGNANCY (NILM) - OTHER COMMENTS: (test code = 8081) (NOTE) Shift in hallie suggestive of bacterial vaginosis. WINDOW CLERK: (test code = 8101) HAYLIE Beach (ASCP) LOCATION: (test code = 74990) (NOTE) Specimens proces sed and interpreted at [facility], [address] [place] [id number], , CLIA: [id number] CPT: (test code = 8140) (NOTE) [address] UNLESS OTH ERWISE INDICATED, COMPUTER AIDED AND WINDOW CLERK SCREENING PERFORMED. The Pap test is a screening test with an inherent, but low probability of error. Your patient should be reminded to consult you immediately if she experiences any suspicious signs or symptoms, regardless of her Pap test result. An alternate report format containing images or consolidated prior Pap history is available as applicable. HPV HIGH RISK WITH GENOTYPE, [id number] 14:13:14* Test Item Value Reference Range Interpretation Comme nts HPV HIGH RISK INTERP (test code = 01109) NEGATIVE NEGATIVE HPV 16 (test code = 23422) NEGATIVE HPV 18 (test code = 14359) NEGATIVE HPV, HR, OTHER GENOTYPES (test code = 50017) NEGATIVE Testing methodol ogy is real-time PCR [...] TESTING PERFORMED AT [facility] [address] [place] [address] REGIONAL OWNER OPERATOR TRUCK DRIVER: CYNDEE MCPHERSON M.D. [place] NUMBER [id number] [facility] [place]. [id number] VAGINAL PATHOGENS DNA [id number] 13:04:06* Test Item Value Reference Range Interpretation Comme nts DWIGHT SPECIES (test code = 33441) NEGATIVE NEGATIVE G. VAGINALIS (test code = 29841) POSITIVE NEGATIVE A T. VAGINALIS (test code = 24540) NEGATIVE NEGATIVE Note: The [employer] VPIII Microbial Identification Testis a DNA probe test intended for use in the detectionand identification of Dwight species, Gardnerellavaginalis and Trichomonas vaginalis nucleic acid. CT/NG, NAAT, [id number] 11:41:28* Test Item Value Reference Range Interpretation Comme nts CHLAMYDIA, NAAT, THINPREP (test code = 05248) NEGATIVE NEGATIVE A negative resul t does not exclude low level infection, specimensampling error, or collection error. Testing is performed with the [employer] 6800/8800 systems usingreal-time Polymerase Chain Reaction (PCR) method. GONORRHEA, NAAT, THINPREP (test code = 48273) NEGATIVE NEGATIVE A negative resul t does not exclude low level infection, specimensampling error, or collection error. Testing is performed with the [employer] 6800/8800 systems usingreal-time Polymerase Chain Reaction (PCR) method. [id number] 05:38:12* Test Item Value Reference Range Interpretation Comme nts RPR RESULT (test code = 3501) NON-REACTIVE NON-REACTIVE RPR TITER (test code = 3500) NOT INDIC. TITER NOT INDIC. HIV 1/2 4TH GEN, RFLX [id number] 04:19:13* Test Item Value Reference Range Interpretation Comme nts HIV 1/2 4TH GEN, RFLX CONF ( test code = 3514) NON-REACTIVE NON-REACTIVE HEPATITIS PANEL, [id number] 04:19:13* Test Item Value Reference Range Interpretation Comme nts HEPATITIS A IgM (test code = 17784) NON-REACTIVE NON-REACTIVE HEPATITIS B CORE IgM (test code = 4644) NON-REACTIVE NON-REACTIVE HEPATITIS B SURF AG (test code = 2739) NON-REACTIVE NON-REACTIVE HEPATITIS C ANTIBODY (test code = 4675) NON-REACTIVE NON-REACTIVE INTERPRETATION HEPATITIS A: (test code = 2552) (NOTE) Hepatitis A serology shows no evidence of acute hepatitis A. INTERPRETATION HEPATITIS B: (test code = 64239) (NOTE) Hepatitis B serology shows no evidence of acute hepatitis B andno indication of exposure to hepatitis B virus in the previous kiko eight months. INTERPRETATION HEPATITIS C: (test code = 10907) (NOTE) Hepatitis C serology shows no evidence of exposure to hepatitisC virus at this time. It can take up to 12 months after exposure tothe hepatitis C virus for antibodies to become detectable in the blood in certain patients. HERPES SIMPLEX 1/2 AB, IgG [id number] 04:19:13* Test Item Value Reference Range Interpretation Comme nts HERPES SIMPLEX 1 AB, IgG (test code = 98223) 11.900 INDEX SEE BELOW H INTERPRETATION U NITS RANGE ----- ----- NON-REACTIVE INDEX <1.000 REACTIVE INDEX >=1.000 HERPES SIMPLEX 2 AB, IgG (test code = 73033) 21.200 INDEX SEE BELOW H INTERPRETATION U NITS RANGE ----- ----- NON-REACTIVE INDEX <1.000 REACTIVE INDEX >=1.000 UNLESS OTHERWISE INDICATED, ALL TESTING PERFORMED AT [facility] [address] [place] [address] REGIONAL OWNER OPERATOR TRUCK DRIVER: CYNDEE MCPHERSON M.D. CLIA NUMBER [id number] [facility] [place]. [id number] GC AND CHLAMYDIA AMPLIFIED, [id number] 00:00:00* Test Item Value Reference Range Interpretation Comme nts CHLAMYDIA, NAAT, THINPREP (t est code = 34726) NEGATIVE GONORRHEA, NAAT, THINPREP (t est code = 94694) NEGATIVE Azam F AustinPAP TEST, THINPREP, [id number] 00:00:00* Test Item Value Reference Range Interpretation Comme nts SOURCE: (test code = 8001) Cervical/Endocervical SLIDES: (test code = 8011) 1 LMP: (test code = 8021) 12/26/2022 SPECIMEN ADEQUACY: (test code = 26051) (NOTE) INTERPRETATION: (test code = 85040) NILM/NO EPITH. ABNORMALITY;SEE BELOW OTHER COMMENTS: (test code = 8081) (NOTE) WINDOW CLERK: (test code = 8101) HAYLIE Beach (ASCP) LOCATION: (test code = 45822) (NOTE) CPT: (test code = 8140) (NOTE) Azam RaphaelVAGINAL PATHOGENS DNA [id number] 00:00:00* Test Item Value Reference Range Interpretation Comme nts DWIGHT SPECIES (test code = 01225) NEGATIVE G. VAGINALIS (test code = 64335) POSITIVE T. VAGINALIS (test code = 91094) NEGATIVE Azam RaphaelHPV HIGH RISK WITH GENOTYPE, [id number] 00:00:00* Test Item Value Reference Range Interpretation Comme nts HPV HIGH RISK INTERP (test c ode = 72467) NEGATIVE HPV 16 (test code = 75792) NEGATIVE HPV 18 (test code = 76061) NEGATIVE HPV, HR, OTHER GENOTYPES (te st code = 69437) NEGATIVE Azam [id number] 00:00:00* Test Item Value Reference Range Interpretation Comme nts RPR RESULT (test code = 3501) NON-REACTIVE RPR TITER (test code = 3500) NOT INDIC. TITER Azam RaphaelACUTE HEPATITIS [id number] 00:00:00* Test Item Value Reference Range Interpretation Comme nts HEPATITIS A IgM (test code = 81541) NON-REACTIVE HEPATITIS B CORE IgM (test c ode = 4644) NON-REACTIVE HEPATITIS B SURF AG (test co de = 1679) NON-REACTIVE HEPATITIS C ANTIBODY (test c ode = 4690) NON-REACTIVE INTERPRETATION HEPATITIS A: (test code = 2552) (NOTE) INTERPRETATION HEPATITIS B: (test code = 90491) (NOTE) INTERPRETATION HEPATITIS C: (test code = 03299) (NOTE) Azam RaphaelHERPES SIMPLEX [id number] 00:00:00* Test Item Value Reference Range Interpretation Comme nts HERPES SIMPLEX AB, IgM (test code = 11249) 1.03 INDEX Azam RaphaelHERPES SIMPLEX 1/2 [id number] 00:00:00* Test Item Value Reference Range Interpretation Comme nts HERPES SIMPLEX 1 AB, IgG (te st code = 67636) 11.900 INDEX HERPES SIMPLEX 2 AB, IgG (te st code = 63757) 21.200 INDEX Azam RaphaelHIV 1/2 4TH GEN, RFLX [id number] 00:00:00* Test Item Value Reference Range Interpretation Comme nts HIV 1/2 4TH GEN, RFLX CONF ( test code = 3514) NON-REACTIVE Azam RaphaelGC AND CHLAMYDIA AMPLIFIED, [id number] 00:00:00* Test Item Value Reference Range Interpretation Comme nts CHLAMYDIA, NAAT, THINPREP (t est code = 66400) NEGATIVE GONORRHEA, NAAT, THINPREP (t est code = 85958) NEGATIVE Azam RaphaelPAP TEST, THINPREP, [id number] 00:00:00* Test Item Value Reference Range Interpretation Comme nts SOURCE: (test code = 8001) Cervical/Endocervical SLIDES: (test code = 8011) 1 LMP: (test code = 8021) 12/26/2022 SPECIMEN ADEQUACY: (test code = 12736) (NOTE) INTERPRETATION: (test code = 18354) NILM/NO EPITH. ABNORMALITY;SEE BELOW OTHER COMMENTS: (test code = 8081) (NOTE) WINDOW CLERK: (test code = 8101) HAYLIE Beach (ASCP) LOCATION: (test code = 12026) (NOTE) CPT: (test code = 8140) (NOTE) Azam RaphaelVAGINAL PATHOGENS DNA [id number] 00:00:00* Test Item Value Reference Range Interpretation Comme nts DWIGHT SPECIES (test code = 50061) NEGATIVE G. VAGINALIS (test code = 51743) POSITIVE T. VAGINALIS (test code = 50724) NEGATIVE Azam RaphaelHPV HIGH RISK WITH GENOTYPE, [id number] 00:00:00* Test Item Value Reference Range Interpretation Comme nts HPV HIGH RISK INTERP (test c ode = 01229) NEGATIVE HPV 16 (test code = 49354) NEGATIVE HPV 18 (test code = 92259) NEGATIVE HPV, HR, OTHER GENOTYPES (te st code = 83448) NEGATIVE Azam [id number] 00:00:00* Test Item Value Reference Range Interpretation Comme nts RPR RESULT (test code = 3501) NON-REACTIVE RPR TITER (test code = 3500) NOT INDIC. TITER Azam RaphaelACUTE HEPATITIS [id number] 00:00:00* Test Item Value Reference Range Interpretation Comme nts HEPATITIS A IgM (test code = 32397) NON-REACTIVE HEPATITIS B CORE IgM (test c ode = 4644) NON-REACTIVE HEPATITIS B SURF AG (test co de = 2739) NON-REACTIVE HEPATITIS C ANTIBODY (test c ode = 4675) NON-REACTIVE INTERPRETATION HEPATITIS A: (test code = 2552) (NOTE) INTERPRETATION HEPATITIS B: (test code = 52648) (NOTE) INTERPRETATION HEPATITIS C: (test code = 61308) (NOTE) Azam PuentePES SIMPLEX [id number] 00:00:00* Test Item Value Reference Range Interpretation Comme nts HERPES SIMPLEX AB, IgM (test code = 05001) 1.03 INDEX Azam RaphaelHERPES SIMPLEX 1/2 [id number] 00:00:00* Test Item Value Reference Range Interpretation Comme nts HERPES SIMPLEX 1 AB, IgG (te st code = 26899) 11.900 INDEX HERPES SIMPLEX 2 AB, IgG (te st code = 93927) 21.200 INDEX Azam RaphaelHIV 1/2 4TH GEN, RFLX [id number] 00:00:00* Test Item Value Reference Range Interpretation Comme nts HIV 1/2 4TH GEN, RFLX CONF ( test code = 3514) NON-REACTIVE Azam RaphaelGC AND CHLAMYDIA AMPLIFIED, [id number] 00:00:00* Test Item Value Reference Range Interpretation Comme nts CHLAMYDIA, NAAT, THINPREP (t est code = 54049) NEGATIVE GONORRHEA, NAAT, THINPREP (t est code = 49835) NEGATIVE Azam RaphaelPAP TEST, THINPREP, [id number] 00:00:00* Test Item Value Reference Range Interpretation Comme nts SOURCE: (test code = 8001) Cervical/Endocervical SLIDES: (test code = 8011) 1 LMP: (test code = 8021) 12/26/2022 SPECIMEN ADEQUACY: (test code = 71668) (NOTE) INTERPRETATION: (test code = 25362) NILM/NO EPITH. ABNORMALITY;SEE BELOW OTHER COMMENTS: (test code = 8081) (NOTE) WINDOW CLERK: (test code = 8101) HAYLIE Beach (ASCP) LOCATION: (test code = 49352) (NOTE) CPT: (test code = 8140) (NOTE) Azam RaphaelVAGINAL PATHOGENS DNA [id number] 00:00:00* Test Item Value Reference Range Interpretation Comme nts DWIGHT SPECIES (test code = 37096) NEGATIVE G. VAGINALIS (test code = 40010) POSITIVE T. VAGINALIS (test code = 51910) NEGATIVE Azam Vallejo [id number] 00:00:00* Test Item Value Reference Range Interpretation Comme nts RPR RESULT (test code = 3501) NON-REACTIVE RPR TITER (test code = 3500) NOT INDIC. TITER Azam RaphaelHPV HIGH RISK WITH GENOTYPE, [id number] 00:00:00* Test Item Value Reference Range Interpretation Comme nts HPV HIGH RISK INTERP (test c ode = 86512) NEGATIVE HPV 16 (test code = 59742) NEGATIVE HPV 18 (test code = 47279) NEGATIVE HPV, HR, OTHER GENOTYPES (te st code = 14094) NEGATIVE Azam RaphaelACUTE HEPATITIS [id number] 00:00:00* Test Item Value Reference Range Interpretation Comme nts HEPATITIS A IgM (test code = 14904) NON-REACTIVE HEPATITIS B CORE IgM (test c ode = 4644) NON-REACTIVE HEPATITIS B SURF AG (test co de = 2739) NON-REACTIVE HEPATITIS C ANTIBODY (test c ode = 4630) NON-REACTIVE INTERPRETATION HEPATITIS A: (test code = 2552) (NOTE) INTERPRETATION HEPATITIS B: (test code = 37824) (NOTE) INTERPRETATION HEPATITIS C: (test code = 41287) (NOTE) Azam RaphaelHERPES SIMPLEX [id number] 00:00:00* Test Item Value Reference Range Interpretation Comme nts HERPES SIMPLEX AB, IgM (test code = 90130) 1.03 INDEX Azam RaphaelHERPES SIMPLEX 1/2 [id number] 00:00:00* Test Item Value Reference Range Interpretation Comme nts HERPES SIMPLEX 1 AB, IgG (te st code = 01372) 11.900 INDEX HERPES SIMPLEX 2 AB, IgG (te st code = 90241) 21.200 INDEX Azam RaphaelHIV 1/2 4TH GEN, RFLX [id number] 00:00:00* Test Item Value Reference Range Interpretation Comme nts HIV 1/2 4TH GEN, RFLX CONF ( test code = 3514) NON-REACTIVE Azam RaphaelGC AND CHLAMYDIA AMPLIFIED, [id number] 00:00:00* Test Item Value Reference Range Interpretation Comme nts CHLAMYDIA, NAAT, THINPREP (t est code = 69588) NEGATIVE GONORRHEA, NAAT, THINPREP (t est code = 40661) NEGATIVE Azam RaphaelPAP TEST, THINPREP, [id number] 00:00:00* Test Item Value Reference Range Interpretation Comme nts SOURCE: (test code = 8001) Cervical/Endocervical SLIDES: (test code = 8011) 1 LMP: (test code = 8021) 12/26/2022 SPECIMEN ADEQUACY: (test code = 35288) (NOTE) INTERPRETATION: (test code = 54827) NILM/NO EPITH. ABNORMALITY;SEE BELOW OTHER COMMENTS: (test code = 8081) (NOTE) WINDOW CLERK: (test code = 8101) HAYLIE [place] (ASCP) LOCATION: (test code = 40713) (NOTE) CPT: (test code = 8140) (NOTE) Azam RaphaelVAGINAL PATHOGENS DNA [id number] 00:00:00* Test Item Value Reference Range Interpretation Comme karolyn DWIGHT SPECIES (test code = 40731) NEGATIVE G. VAGINALIS (test code = 67164) POSITIVE T. VAGINALIS (test code = 68905) NEGATIVE Azam [id number] 00:00:00* Test Item Value Reference Range Interpretation Comme nts RPR RESULT (test code = 3501) NON-REACTIVE RPR TITER (test code = 3500) NOT INDIC. TITER Azam RaphaelHPV HIGH RISK WITH GENOTYPE, [id number] 00:00:00* Test Item Value Reference Range Interpretation Comme [facility] HPV HIGH RISK INTERP (test c ode = 69862) NEGATIVE HPV 16 (test code = 35488) NEGATIVE HPV 18 (test code = 58237) NEGATIVE HPV, HR, OTHER GENOTYPES (te st code = 99736) NEGATIVE Azam Dockery HEPATITIS [id number] 00:00:00* Test Item Value Reference Range Interpretation Comme nts HEPATITIS A IgM (test code = 36290) NON-REACTIVE HEPATITIS B CORE IgM (test c ode = 4644) NON-REACTIVE HEPATITIS B SURF AG (test co de = 2739) NON-REACTIVE HEPATITIS C ANTIBODY (test c ode = 4675) NON-REACTIVE INTERPRETATION HEPATITIS A: (test code = 2552) (NOTE) INTERPRETATION HEPATITIS B: (test code = 31522) (NOTE) INTERPRETATION HEPATITIS C: (test code = 82460) (NOTE) Azam PuentePES SIMPLEX [id number] 00:00:00* Test Item Value Reference Range Interpretation Comme [facility] HERPES SIMPLEX AB, IgM (test code = 07989) 1.03 INDEX Azam RaphaelHERPES SIMPLEX 1/2 [id number] 00:00:00* Test Item Value Reference Range Interpretation Comme [facility] HERPES SIMPLEX 1 AB, IgG (te st code = 43537) 11.900 INDEX HERPES SIMPLEX 2 AB, IgG (te st code = 03088) 21.200 INDEX Azam RaphaelHIV 1/2 4TH GEN, RFLX [id number] 00:00:00* Test Item Value Reference Range Interpretation Comme [facility] HIV 1/2 4TH GEN, RFLX CONF ( test code = 3514) NON-REACTIVE Azam RaphaelPAP TEST, THINPREP, [id number] 12:31:46* Test Item Value Reference Range Interpretation Comme [facility] SOURCE: (test code = 8001) Cervical SLIDES: (test code = 8011) 1 LMP: (test code = 8021) NOT GIVEN SPECIMEN ADEQUACY: (test code = 94154) (NOTE) Satisfactory for evaluation. Endocervical cells/transformation zone component present. INTERPRETATION: (test code = 11537) NILM/NO EPITH. ABNORMALITY;SEE BELOW --- - NEGATIVE FOR INTRAEPITHELIAL LESION OR MALIGNANCY (NILM) ---- WINDOW CLERK : (test code = 8101) HAYLIE Beach (ASCP) LOCATION: (test code = 76607) (NOTE) Specimens proces sed and interpreted at [facility], [address] [place] [address], , CLIA: [id number] CPT: (test code = 8140) (NOTE) 10317 UNLESS OTH ERWISE INDICATED, COMPUTER AIDED AND WINDOW CLERK SCREENING PERFORMED. The Pap test is a screening test with an inherent, but low probability of error. Your patient should be reminded to consult you immediately if she experiences any suspicious signs or symptoms, regardless of her Pap test result. An alternate report format containing images or consolidated prior Pap history is available as applicable. HPV HIGH RISK WITH GENOTYPE, [id number] 12:26:32* Test Item Value Reference Range Interpretation Comme nts HPV HIGH RISK INTERP (test code = 06224) NEGATIVE NEGATIVE HPV 16 (test code = 71694) NEGATIVE HPV 18 (test code = 06167) NEGATIVE HPV, HR, OTHER GENOTYPES (test code = 74378) NEGATIVE Testing methodol ogy is real-time PCR [...] error. UNLESS OTHERWISE INDICATED, ALL TESTING PERFORMED [facility] [address] [place] [address] REGIONAL OWNER OPERATOR TRUCK DRIVER: TERRI MCCRARY M.D. CLIA NUMBER [id number] [facility] [place]. [id number] PAP TEST, THINPREP, [id number] 00:00:00* Test Item Value Reference Range Interpretation Comme nts SOURCE: (test code = 8001) Cervical SLIDES: (test code = 8011) 1 LMP: (test code = 8021) NOT GIVEN SPECIMEN ADEQUACY: (test code = 57047) (NOTE) INTERPRETATION: (test code = 51268) NILM/NO EPITH. ABNORMALITY;SEE BELOW WINDOW CLERK: (test code = 8101) HAYLIE Beach (ASCP) LOCATION: (test code = 53507) (NOTE) CPT: (test code = 8140) (NOTE) Azam F AustinHPV HIGH RISK WITH GENOTYPE, [id number] 00:00:00* Test Item Value Reference Range Interpretation Comme nts HPV HIGH RISK INTERP (test c ode = 47007) NEGATIVE HPV 16 (test code = 87471) NEGATIVE HPV 18 (test code = 03446) NEGATIVE HPV, HR, OTHER GENOTYPES (te st code = 35416) NEGATIVE Azam F AustinPAP TEST, THINPREP, [id number] 00:00:00* Test Item Value Reference Range Interpretation Comme nts SOURCE: (test code = 8001) Cervical SLIDES: (test code = 8011) 1 LMP: (test code = 8021) NOT GIVEN SPECIMEN ADEQUACY: (test code = 65089) (NOTE) INTERPRETATION: (test code = 40583) NILM/NO EPITH. ABNORMALITY;SEE BELOW WINDOW CLERK: (test code = 8101) HAYLIE Beach (ASCP) LOCATION: (test code = 99772) (NOTE) CPT: (test code = 8140) (NOTE) Azam F AustinHPV HIGH RISK WITH GENOTYPE, [id number] 00:00:00* Test Item Value Reference Range Interpretation Comme nts HPV HIGH RISK INTERP (test c ode = 79913) NEGATIVE HPV 16 (test code = 77160) NEGATIVE HPV 18 (test code = 83822) NEGATIVE HPV, HR, OTHER GENOTYPES (te st code = 96845) NEGATIVE Azam F AustinPAP TEST, THINPREP, [id number] 00:00:00* Test Item Value Reference Range Interpretation Comme nts SOURCE: (test code = 8001) Cervical SLIDES: (test code = 8011) 1 LMP: (test code = 8021) NOT GIVEN SPECIMEN ADEQUACY: (test code = 68033) (NOTE) INTERPRETATION: (test code = 27609) NILM/NO EPITH. ABNORMALITY;SEE BELOW WINDOW CLERK: (test code = 8101) HAYLIE Beach (ASCP) LOCATION: (test code = 16133) (NOTE) CPT: (test code = 8140) (NOTE) Azam Vallejo AustinHPV HIGH RISK WITH GENOTYPE, [id number] 00:00:00* Test Item Value Reference Range Interpretation Comme nts HPV HIGH RISK INTERP (test c ode = 59413) NEGATIVE HPV 16 (test code = 98760) NEGATIVE HPV 18 (test code = 66836) NEGATIVE HPV, HR, OTHER GENOTYPES (te st code = 99095) NEGATIVE Azam RaphaelPAP TEST, THINPREP, [id number] 00:00:00* Test Item Value Reference Range Interpretation Comme nts SOURCE: (test code = 8001) Cervical SLIDES: (test code = 8011) 1 LMP: (test code = 8021) NOT GIVEN SPECIMEN ADEQUACY: (test code = 45248) (NOTE) INTERPRETATION: (test code = 25901) NILM/NO EPITH. ABNORMALITY;SEE BELOW WINDOW CLERK: (test code = 8101) HAYLIE Beach (ASCP) LOCATION: (test code = 85929) (NOTE) CPT: (test code = 8140) (NOTE) Azam Vallejo AustinHPV HIGH RISK WITH GENOTYPE, [id number] 00:00:00* Test Item Value Reference Range Interpretation Comme nts HPV HIGH RISK INTERP (test c ode = 49729) NEGATIVE HPV 16 (test code = 65709) NEGATIVE HPV 18 (test code = 28337) NEGATIVE HPV, HR, OTHER GENOTYPES (te st code = 74419) NEGATIVE Azam Vallejo AustinCT/NG, NAAT, [id number] 17:17:22* Test Item Value Reference Range Interpretation Comme nts CHLAMYDIA, NAAT, THINPREP (test code = 15628) NEGATIVE NEGATIVE A negative resul t does not exclude low level infection, specimensampling error, or collection error. Testing is performed with the [employer] Jenniffer 6800/8800 systems usingreal-time Polymerase Chain Reaction (PCR) method. GONORRHEA, NAAT, THINPREP (test code = 38295) NEGATIVE NEGATIVE A negative resul t does not exclude low level infection, specimensampling error, or collection error. Testing is performed with the [employer] 6800/8800 systems usingreal-time Polymerase Chain Reaction (PCR) method. GC AND CHLAMYDIA AMPLIFIED, [id number] 00:00:00* Test Item Value Reference Range Interpretation Comme nts CHLAMYDIA, NAAT, THINPREP (t est code = 55789) NEGATIVE GONORRHEA, NAAT, THINPREP (t est code = 10397) NEGATIVE Azam F AustinGC AND CHLAMYDIA AMPLIFIED, [id number] 00:00:00* Test Item Value Reference Range Interpretation Comme nts CHLAMYDIA, NAAT, THINPREP (t est code = 51797) NEGATIVE GONORRHEA, NAAT, THINPREP (t est code = 29115) NEGATIVE Azam F AustinGC AND CHLAMYDIA AMPLIFIED, [id number] 00:00:00* Test Item Value Reference Range Interpretation Comme nts CHLAMYDIA, NAAT, THINPREP (t est code = 29989) NEGATIVE GONORRHEA, NAAT, THINPREP (t est code = 57291) NEGATIVE Azam F AustinGC AND CHLAMYDIA AMPLIFIED, [id number] 00:00:00* Test Item Value Reference Range Interpretation Comme nts CHLAMYDIA, NAAT, THINPREP (t est code = 49588) NEGATIVE GONORRHEA, NAAT, THINPREP (t est code = 09521) NEGATIVE Azam F AustinVAGINAL PATHOGENS DNA [id number] 12:33:41* Test Item Value Reference Range Interpretation Comme nts DWIGHT SPECIES (test code = 72537) NEGATIVE NEGATIVE G. VAGINALIS (test code = 90714) POSITIVE NEGATIVE A T. VAGINALIS (test code = 71357) NEGATIVE NEGATIVE Note: The BD Behalf irm VPIII Microbial Identification Testis a DNA probe test intended for use in the detectionand identification of Dwight species, Gardnerellavaginalis and Trichomonas vaginalis nucleic acid. HIV 1/2 4TH GEN, RFLX [id number] 03:14:00* Test Item Value Reference Range Interpretation Comme nts HIV 1/2 4TH GEN, RFLX CONF ( test code = 3514) NON-REACTIVE NON-REACTIVE HEPATITIS PANEL, [id number] 03:14:00* Test Item Value Reference Range Interpretation Comme nts HEPATITIS A IgM (test code = 79664) NON-REACTIVE NON-REACTIVE HEPATITIS B CORE IgM (test code = 4644) NON-REACTIVE NON-REACTIVE HEPATITIS B SURF AG (test code = 2739) NON-REACTIVE NON-REACTIVE HEPATITIS C ANTIBODY (test code = 4675) NON-REACTIVE NON-REACTIVE INTERPRETATION HEPATITIS A: (test code = 2552) (NOTE) Hepatitis A sero logy shows no evidence of acute hepatitis A. INTERPRETATION HEPATITIS B: (test code = 32760) (NOTE) Hepatitis B sero logy shows no evidence of acute hepatitis B andno indication of exposure to hepatitis B virus in the previous kiko eight months. INTERPRETATION HEPATITIS C: (test code = 11030) (NOTE) Hepatitis C sero logy shows no evidence of exposure to hepatitisC virus at this time. It can take up to 12 months after exposure tothe hepatitis C virus for antibodies to become detectable in the blood in certain patients. UNLESS OTHERWISE INDICATED, ALL TESTING PERFORMED [facility] [address] [place] [address] REGIONAL OWNER OPERATOR TRUCK DRIVER: TERRI MCCRARY M.D. [place] NUMBER [id number] [facility] [place]. [id number] 02:43:33* Test Item Value Reference Range Interpretation Comme nts RPR RESULT (test code = 3501) NON-REACTIVE NON-REACTIVE RPR TITER (test code = 3500) NOT INDIC. TITER NOT INDIC. HIV 1/2 4TH GEN, RFLX [id number] 00:00:00* Test Item Value Reference Range Interpretation Comme nts HIV 1/2 4TH GEN, RFLX CONF ( test code = 3514) NON-REACTIVE Azam RaphaelVAGINAL PATHOGENS DNA [id number] 00:00:00* Test Item Value Reference Range Interpretation Comme nts DWIGHT SPECIES (test code = 40693) NEGATIVE G. VAGINALIS (test code = 55662) POSITIVE T. VAGINALIS (test code = 17179) NEGATIVE Azam [id number] 00:00:00* Test Item Value Reference Range Interpretation Comme nts RPR RESULT (test code = 3501) NON-REACTIVE RPR TITER (test code = 3500) NOT INDIC. TITER Azam RaphaelACUTE HEPATITIS [id number] 00:00:00* Test Item Value Reference Range Interpretation Comme nts HEPATITIS A IgM (test code = 69536) NON-REACTIVE HEPATITIS B CORE IgM (test c ode = 4644) NON-REACTIVE HEPATITIS B SURF AG (test co de = 2739) NON-REACTIVE HEPATITIS C ANTIBODY (test c ode = 4675) NON-REACTIVE INTERPRETATION HEPATITIS A: (test code = 2552) (NOTE) INTERPRETATION HEPATITIS B: (test code = 78425) (NOTE) INTERPRETATION HEPATITIS C: (test code = 63407) (NOTE) Azam RaphaelHIV 1/2 4TH GEN, RFLX [id number] 00:00:00* Test Item Value Reference Range Interpretation Comme nts HIV 1/2 4TH GEN, RFLX CONF ( test code = 3514) NON-REACTIVE Azam RaphaelVAGINAL PATHOGENS DNA [id number] 00:00:00* Test Item Value Reference Range Interpretation Comme nts DWIGHT SPECIES (test code = 22476) NEGATIVE G. VAGINALIS (test code = 54304) POSITIVE T. VAGINALIS (test code = 43148) NEGATIVE Azam [id number] 00:00:00* Test Item Value Reference Range Interpretation Comme nts RPR RESULT (test code = 3501) NON-REACTIVE RPR TITER (test code = 3500) NOT INDIC. TITER Azam RaphaelACUTE HEPATITIS [id number] 00:00:00* Test Item Value Reference Range Interpretation Comme nts HEPATITIS A IgM (test code = 17435) NON-REACTIVE HEPATITIS B CORE IgM (test c ode = 4644) NON-REACTIVE HEPATITIS B SURF AG (test co de = 2739) NON-REACTIVE HEPATITIS C ANTIBODY (test c ode = 4675) NON-REACTIVE INTERPRETATION HEPATITIS A: (test code = 2552) (NOTE) INTERPRETATION HEPATITIS B: (test code = 64268) (NOTE) INTERPRETATION HEPATITIS C: (test code = 79322) (NOTE) Azam RaphaelHIV 1/2 4TH GEN, RFLX [id number] 00:00:00* Test Item Value Reference Range Interpretation Comme nts HIV 1/2 4TH GEN, RFLX CONF ( test code = 3514) NON-REACTIVE Azam RaphaelVAGINAL PATHOGENS DNA [id number] 00:00:00* Test Item Value Reference Range Interpretation Comme nts DWIGHT SPECIES (test code = 26638) NEGATIVE G. VAGINALIS (test code = 41984) POSITIVE T. VAGINALIS (test code = 79232) NEGATIVE Azam Vallejo [id number] 00:00:00* Test Item Value Reference Range Interpretation Comme nts RPR RESULT (test code = 3501) NON-REACTIVE RPR TITER (test code = 3500) NOT INDIC. TITER Azam RaphaelACUTE HEPATITIS [id number] 00:00:00* Test Item Value Reference Range Interpretation Comme nts HEPATITIS A IgM (test code = 83182) NON-REACTIVE HEPATITIS B CORE IgM (test c ode = 4644) NON-REACTIVE HEPATITIS B SURF AG (test co de = 2739) NON-REACTIVE HEPATITIS C ANTIBODY (test c ode = 4675) NON-REACTIVE INTERPRETATION HEPATITIS A: (test code = 2552) (NOTE) INTERPRETATION HEPATITIS B: (test code = 10567) (NOTE) INTERPRETATION HEPATITIS C: (test code = 17849) (NOTE) Azam RaphaelHIV 1/2 4TH GEN, RFLX [id number] 00:00:00* Test Item Value Reference Range Interpretation Comme nts HIV 1/2 4TH GEN, RFLX CONF ( test code = 3514) NON-REACTIVE Azam RaphaelVAGINAL PATHOGENS DNA [id number] 00:00:00* Test Item Value Reference Range Interpretation Comme nts DWIGHT SPECIES (test code = 91333) NEGATIVE G. VAGINALIS (test code = 97915) POSITIVE T. VAGINALIS (test code = 25511) NEGATIVE Azam Vallejo [id number] 00:00:00* Test Item Value Reference Range Interpretation Comme nts RPR RESULT (test code = 3501) NON-REACTIVE RPR TITER (test code = 3500) NOT INDIC. TITER Azam RaphaelACUTE HEPATITIS [id number] 00:00:00* Test Item Value Reference Range Interpretation Comme nts HEPATITIS A IgM (test code = 83286) NON-REACTIVE HEPATITIS B CORE IgM (test c ode = 4605) NON-REACTIVE HEPATITIS B SURF AG (test co de = 9009) NON-REACTIVE HEPATITIS C ANTIBODY (test c ode = 4674) NON-REACTIVE INTERPRETATION HEPATITIS A: (test code = 2552) (NOTE) INTERPRETATION HEPATITIS B: (test code = 25221) (NOTE) INTERPRETATION HEPATITIS C: (test code = 28360) (NOTE) Azam Vallejo Karon. METABOLIC PANEL ([id number] 19:42:47* Test Item Value Reference Range Interpretation Comme nts NA (test code = 9776455131) 138 mmol/L 135-145 K (test code = 3568477249) 4.8 mmol/L 3.5-5.0 CL (test code = 8661771690) 102 mmol/L 98-108 CO2 TOTAL (test code = 8710716840) 25 mmol/L 23-31 AGAP (test code = 5651006861) 2-16 BUN (test code = 0009213996) 15 mg/dL 7-23 GLUCOSE (test code = 9118973699) 90 mg/dL 70-110 CREATININE (test code = 3755223635) 0.64 mg/dL 0.50-1.04 TOTAL BILI (test code = 2741214755) 0.8 mg/dL 0.1-1.1 CALCIUM (test code = 6610831600) 9.9 mg/dL 8.6-10.6 T PROTEIN (test code = 1896366644) 7.8 g/dL 6.3-8.2 ALBUMIN (test code = 8243391484) 5.0 g/dL 3.5-5.0 ALK PHOS (test code = 5795315507) 84 U/L 34-122 ALTv (test code = 1742-6) 14 U/L 5-35 AST(SGOT) (test code = 3024805034) 23 U/L 13-40 eGFR (test code = 2742843356) mL/min/1.73m2 [place] (test code = [place]) Association [...] or urine or abnormalities in imaging tests). [facility] WITH [id number] 19:29:29* Test Item Value Reference Range Interpretation Comme nts WBC (test code = 6690-2) See_Comment [ONtheAIR] The system which generated this result transmitted reference range: 4.30 - 11.10 10*3/?L. The reference range was not used to interpret this result as normal/abnormal. RBC (test code = 789-8) See_Comment [ONtheAIR] The system which generated this result transmitted [...] 34.0 g/dL 31.6-35.1 RDW-SD (test code = 35985-0) 42.0 fL 39.0-49.9 RDW-CV (test code = 788-0) 12.1 % 12.0-15.5 PLT (test code = 777-3) See_Comment [Automated messa ge] The system which generated this result transmitted reference range: 166 - 358 10*3/?L. The reference range was not used to interpret this result as normal/abnormal. MPV (test code = 63810-9) 10.0 fL 9.5-12.9 NRBC/100 WBC (test code = 7818266207) See_Comment [Automated [employer] ssage] The system which generated this result transmitted reference range: 0.0 - 10.0 /100 WBCs. The reference range was not used to interpret this result as normal/abnormal. NRBC x10^3 (test code = 4827783952) <0.01 See_Comment [Automated messa ge] The system which generated this result transmitted reference range: 10*3/?L. The reference range was not used to interpret this result as normal/abnormal. GRAN MAT (NEUT) % (test code = 770-8) 65.5 % IMM GRAN % (test code = 2490261944) 0.40 % LYMPH % (test code = 736-9) 20.6 % MONO % (test code = 5905-5) 10.5 % EOS % (test code = 713-8) 2.1 % BASO % (test code = 706-2) 0.9 % GRAN MAT x10^3(ANC) (test code = 0146554409) 5.61 10*3/uL 1.88-7.09 IMM GRAN x10^3 (test code = 9394534334) 0.03 10*3/uL 0.00-0.06 LYMPH x10^3 (test code = 731-0) 1.76 10*3/uL 1.32-3.29 MONO x10^3 (test code = 742-7) 0.90 10*3/uL 0.33-0.92 EOS x10^3 (test code = 711-2) 0.18 10*3/uL 0.03-0.39 BASO x10^3 (test code = 704-7) 0.08 10*3/uL 0.01-0.07 H Lab Interpretation (test code = 68996-0) [facility] [id number] 18:47:00* Test Item Value Reference Range Interpretation Comme nts POCT PREG (test code = 1605) Negative On board controls acceptable with C Line (test code = 3574) Present POCT PREG LOT # (test code = 3575) [id number] POCT PREG TEST DATE ( test code = 3576) 02-24-2023 Lab Interpretation (test cod e = 39073-2) Normal [facility] [id number] 11:20:57* Test Item Value Reference Range Interpretation [...] previously r eported abnormal Pap (accession # [id number]) isreviewed. The atypical cells identified on the [...] TanNUMBER OF TISSUE PIECES: multipleSUBMITTED IN CASSETTE(S): [id number]: FormalinCOMMENTS:Filtered and entirely submitted. B) SPECIMEN LABELED: Cervix, 3 o'clockSIZE/WEIGHT: 0.3x0.2x0.1 cm AggregateSPECIMEN COLOR: TanNUMBER OF TISSUE PIECES: multipleSUBMITTED IN CASSETTE(S): [id number]: FormalinCOMMENTS:Entirely submitted intact. C) SPECIMEN LABELED: Cervix, 6 o'clockSIZE/WEIGHT: 0.3x0.2x0.1 cm SPECIMEN COLOR: TanNUMBER OF TISSUE PIECES: 1SUBMITTED IN CASSETTE(S): [id number]: FormalinCOMMENTS:Entirely submitted intact. D) SPECIMEN LABELED: Cervix, 9 o'clockSIZE/WEIGHT: 0.3x0.2x0.1 cm SPECIMEN COLOR: TanNUMBER OF TISSUE PIECES: 1SUBMITTED IN CASSETTE(S): [id number]: FormalinCOMMENTS:Entirely submitted intact. E) SPECIMEN LABELED: Cervix, 11 o'clockSIZE/WEIGHT: 0.4x0.3x0.3 cm SPECIMEN COLOR: TanNUMBER OF TISSUE PIECES: 1SUBMITTED IN CASSETTE(S): [id number]: FormalinCOMMENTS:Entirely submitted intact. PATHOLOGIST: (test code = 8250) (NOTE) Charisma galan Specimens processed at [facility], [address] [place] [address], , CLIA: [id number] interpreted at [facility], [address] [place] [address], , CLIA: [id number] DISCLAIMER (test code = 39318) (NOTE) IHC antibodies a re interpreted in the presence of appropriatelyfunctioning controls unless otherwise noted. CPT: (test code = 8400) (NOTE) 66260m1, 47483x5 UNLESS OTHERWISE INDICATED, ALL TESTING PERFORMED [facility] [address] [place] [address] REGIONAL OWNER OPERATOR TRUCK DRIVER: TERRI MCCRARY M.D. CLIA NUMBER [id number] [facility] [place]. [id number] SURGICAL PATHOLOGY [id number] 00:00:00* Test Item Value Reference Range Interpretation Comme nts DIAGNOSIS: (test code = 8200) (NOTE) COMMENTS: (test code = 8205) (NOTE) MICROSCOPIC DESCRIPTION: (te st code = 8210) (NOTE) CLINICAL DATA: (test code = 8401) (NOTE) GROSS DESCRIPTION: (test code = 8220) (NOTE) PATHOLOGIST: (test code = 8250) (NOTE) DISCLAIMER (test code = 08177) (NOTE) CPT: (test code = 8400) (NOTE) Azam Vallejo [place] [facility] [id number] 00:00:00* Test Item Value Reference Range Interpretation Comme nts DIAGNOSIS: (test code = 8200) (NOTE) COMMENTS: (test code = 8205) (NOTE) MICROSCOPIC DESCRIPTION: (te st code = 8210) (NOTE) CLINICAL DATA: (test code = 8401) (NOTE) GROSS DESCRIPTION: (test code = 8220) (NOTE) PATHOLOGIST: (test code = 8250) (NOTE) DISCLAIMER (test code = 63315) (NOTE) CPT: (test code = 8400) (NOTE) Azam Vallejo [facility] [id number] 00:00:00* Test Item Value Reference Range Interpretation Comme nts DIAGNOSIS: (test code = 8200) (NOTE) COMMENTS: (test code = 8205) (NOTE) MICROSCOPIC DESCRIPTION: (te st code = 8210) (NOTE) CLINICAL DATA: (test code = 8401) (NOTE) GROSS DESCRIPTION: (test code = 8220) (NOTE) PATHOLOGIST: (test code = 8250) (NOTE) DISCLAIMER (test code = 33010) (NOTE) CPT: (test code = 8400) (NOTE) Azam Vallejo [place] [facility] [id number] 00:00:00* Test Item Value Reference Range Interpretation Comme nts DIAGNOSIS: (test code = 8200) (NOTE) COMMENTS: (test code = 8205) (NOTE) MICROSCOPIC DESCRIPTION: (te st code = 8210) (NOTE) CLINICAL DATA: (test code = 8401) (NOTE) GROSS DESCRIPTION: (test code = 8220) (NOTE) PATHOLOGIST: (test code = 8250) (NOTE) DISCLAIMER (test code = 66659) (NOTE) CPT: (test code = 8400) (NOTE) [facility] [id number] 00:00:00* Test Item Value Reference Range Interpretation Comme nts DIAGNOSIS: (test code = 8200) (NOTE) COMMENTS: (test code = 8205) (NOTE) MICROSCOPIC DESCRIPTION: (te st code = 8210) (NOTE) CLINICAL DATA: (test code = 8401) (NOTE) GROSS DESCRIPTION: (test code = 8220) (NOTE) PATHOLOGIST: (test code = 8250) (NOTE) DISCLAIMER (test code = 27449) (NOTE) CPT: (test code = 8400) (NOTE) SURGICAL PATHOLOGY [id number] 00:00:00* Test Item Value Reference Range Interpretation Comme nts DIAGNOSIS: (test code = 8200) (NOTE) COMMENTS: (test code = 8205) (NOTE) MICROSCOPIC DESCRIPTION: (te st code = 8210) (NOTE) CLINICAL DATA: (test code = 8401) (NOTE) GROSS DESCRIPTION: (test code = 8220) (NOTE) PATHOLOGIST: (test code = 8250) (NOTE) DISCLAIMER (test code = 14380) (NOTE) CPT: (test code = 8400) (NOTE) SURGICAL PATHOLOGY [id number] 00:00:00* Test Item Value Reference Range Interpretation Comme nts DIAGNOSIS: (test code = 8200) (NOTE) COMMENTS: (test code = 8205) (NOTE) MICROSCOPIC DESCRIPTION: (te st code = 8210) (NOTE) CLINICAL DATA: (test code = 8401) (NOTE) GROSS DESCRIPTION: (test code = 8220) (NOTE) PATHOLOGIST: (test code = 8250) (NOTE) DISCLAIMER (test code = 86465) (NOTE) CPT: (test code = 8400) (NOTE) PAP TEST, THINPREP, [id number] 11:12:17* Test Item Value Reference Range Interpretation Comme nts SOURCE: (test code = 8001) Cervical/Endo cervical SLIDES: (test code = 8011) 1 LMP: (test code = 8021) 08/05/2021 SPECIMEN ADEQUACY: (test code = 67674) (NOTE) Satisfactory for evaluation. Endocervical cells/transformation zone component present. INTERPRETATION: (test code = 38553) ASCUS/EPITH. ABNORMALITY; SEE BELOW A -- ---- EPITHELIAL CELL ABNORMALITY Atypical squamous cells of undetermined significance (ASC-US) OTHER COMMENTS: (test code = 8081) (NOTE) Possible celis ges of Herpes virus present. Recommend PCR orculture for confirmation. PCR may be performed on this samplewithin 21 days of collection. Please contact [facility] [employer] Customer Serviceat [phone]. WINDOW CLERK: (test code = 8101) HAYLIE Anderson(ASC P) PATHOLOGIST INTERPRETATION BY: (test code = 8122) Dylan Holland LOCATION: (test code = 28098) (NOTE) Specimens proces sed at [facility], [address] [place] [address], , CLIA: [id number] interpreted at [facility], [address] [place] [address], , CLIA: [id number] CPT: (test code = 8140) (NOTE) 81910, 02534 UNL ESS OTHERWISE INDICATED, COMPUTER AIDED AND WINDOW CLERK SCREENING PERFORMED. The Pap test is a screening test with an inherent, but low probability of error. Your patient should be reminded to consult you immediately if she experiences any suspicious signs or symptoms, regardless of her Pap test result. An alternate report format containing images or consolidated prior Pap history is available as applicable. PAP TEST, THINPREP, [id number] 00:00:00* Test Item Value Reference Range Interpretation Comme nts SOURCE: (test code = 8001) Cervical/Endo cervic al SLIDES: (test code = 8011) 1 LMP: (test code = 8021) 08/05/2021 SPECIMEN ADEQUACY: (test code = 09028) (NOTE) INTERPRETATION: (test code = 68147) ASCUS/EPITH. ABNORMALITY; SEE BELOW OTHER COMMENTS: (test code = 8081) (NOTE) WINDOW CLERK: (test code = 8101) HAYLIE Anderson(ASCP) PATHOLOGIST INTERPRETATION BY: (test code = 8122) Dylan Holland LOCATION: (test code = 78571) (NOTE) CPT: (test code = 8140) (NOTE) Azam Yoni DevP TEST, THINPREP, [id number] 00:00:00* Test Item Value Reference Range Interpretation Comme nts SOURCE: (test code = 8001) Cervical/Endo cervic al SLIDES: (test code = 8011) 1 LMP: (test code = 8021) 08/05/2021 SPECIMEN ADEQUACY: (test code = 40432) (NOTE) INTERPRETATION: (test code = 38933) ASCUS/EPITH. ABNORMALITY; SEE BELOW OTHER COMMENTS: (test code = 8081) (NOTE) WINDOW CLERK: (test code = 8101) HAYLIE Anderson(ASCP) PATHOLOGIST INTERPRETATION BY: (test code = 8122) Dylan Holland LOCATION: (test code = 61387) (NOTE) CPT: (test code = 8140) (NOTE) Azam MéndezP TEST, THINPREP, [id number] 00:00:00* Test Item Value Reference Range Interpretation Comme nts SOURCE: (test code = 8001) Cervical/Endo cervic al SLIDES: (test code = 8011) 1 LMP: (test code = 8021) 08/05/2021 SPECIMEN ADEQUACY: (test code = 94683) (NOTE) INTERPRETATION: (test code = 82404) ASCUS/EPITH. ABNORMALITY; SEE BELOW OTHER COMMENTS: (test code = 8081) (NOTE) WINDOW CLERK: (test code = 8101) HAYLIE Anderson(ASCP) PATHOLOGIST INTERPRETATION BY: (test code = 8122) Dylan Holland LOCATION: (test code = 09478) (NOTE) CPT: (test code = 8140) (NOTE) Azam MéndezP TEST, THINPREP, [id number] 00:00:00* Test Item Value Reference Range Interpretation Comme nts SOURCE: (test code = 8001) Cervical/Endo cervic al SLIDES: (test code = 8011) 1 LMP: (test code = 8021) 08/05/2021 SPECIMEN ADEQUACY: (test code = 75639) (NOTE) INTERPRETATION: (test code = 23748) ASCUS/EPITH. ABNORMALITY; SEE BELOW OTHER COMMENTS: (test code = 8081) (NOTE) WINDOW CLERK: (test code = 8101) HAYLIE Anderson(ASCP) PATHOLOGIST INTERPRETATION BY: (test code = 8122) Dylan Holland LOCATION: (test code = 91142) (NOTE) CPT: (test code = 8140) (NOTE) Azam RaphaelMORTEZAP TEST, THINPREP, [id number] 00:00:00* Test Item Value Reference Range Interpretation Comme nts SOURCE: (test code = 8001) Cervical/Endo cervic al SLIDES: (test code = 8011) 1 LMP: (test code = 8021) 08/05/2021 SPECIMEN ADEQUACY: (test code = 42687) (NOTE) INTERPRETATION: (test code = 04404) ASCUS/EPITH. ABNORMALITY; SEE BELOW OTHER COMMENTS: (test code = 8081) (NOTE) WINDOW CLERK: (test code = 8101) HAYLIE Anderson(ASCP) PATHOLOGIST INTERPRETATION BY: (test code = 8122) Dylan Holland LOCATION: (test code = 77016) (NOTE) CPT: (test code = 8140) (NOTE) PAP TEST, THINPREP, [id number] 00:00:00* Test Item Value Reference Range Interpretation Comme nts SOURCE: (test code = 8001) Cervical/Endo cervic al SLIDES: (test code = 8011) 1 LMP: (test code = 8021) 08/05/2021 SPECIMEN ADEQUACY: (test code = 03278) (NOTE) INTERPRETATION: (test code = 50208) ASCUS/EPITH. ABNORMALITY; SEE BELOW OTHER COMMENTS: (test code = 8081) (NOTE) WINDOW CLERK: (test code = 8101) HAYLIE Anderson(ASCP) PATHOLOGIST INTERPRETATION BY: (test code = 8122) Dylan Holland LOCATION: (test code = 47421) (NOTE) CPT: (test code = 8140) (NOTE) PAP TEST, THINPREP, [id number] 00:00:00* Test Item Value Reference Range Interpretation Comme nts SOURCE: (test code = 8001) Cervical/Endo cervic al SLIDES: (test code = 8011) 1 LMP: (test code = 8021) 08/05/2021 SPECIMEN ADEQUACY: (test code = 52635) (NOTE) INTERPRETATION: (test code = 36760) ASCUS/EPITH. ABNORMALITY; SEE BELOW OTHER COMMENTS: (test code = 8081) (NOTE) WINDOW CLERK: (test code = 8101) HAYLIE Anderson(ASCP) PATHOLOGIST INTERPRETATION BY: (test code = 8122) Dylan Holland LOCATION: (test code = 00657) (NOTE) CPT: (test code = 8140) (NOTE) CT/NG, TMA, [id number] 19:19:14* Test Item Value Reference Range Interpretation Comme nts GONORRHEA, TMA (test code = 08332) NEGATIVE NEGATIVE Assay methodolog y is nucleic acid amplification by foundry melt supervisor mediated amplification (TMA) utilizing the Aptima Combo 2 Assay. CHLAMYDIA, TMA (test code = 11831) NEGATIVE NEGATIVE Assay methodolog y is nucleic acid amplification by foundry melt supervisor mediated amplification (TMA) utilizing the Aptima Combo 2 Assay. HPV HIGH RISK WITH GENOTYPE, [id number] 16:29:18* Test Item Value Reference Range Interpretation Comme [facility] HPV HIGH RISK INTERP (test code = 45044) POSITIVE NEGATIVE A HPV 16 (test code = 63275) NEGATIVE HPV 18 (test code = 13471) NEGATIVE HPV, HR, OTHER GENOTYPES (test code = 16395) POSITIVE A Testing methodol ogy is real-time [...] error. UNLESS OTHERWISE INDICATED, ALL TESTING PERFORMED [facility] [address] [place] [address] [employer]IONAL OWNER OPERATOR TRUCK DRIVER: TERRI MCCRARY M.D. CLIA NUMBER [id number] [place]. [id number] VAGINAL PATHOGENS DNA [id number] 14:49:20* Test Item Value Reference Range [facility] DWIGHT SPECIES (test code = 49073) NEGATIVE NEGATIVE G. VAGINALIS (test code = 13263) POSITIVE NEGATIVE A T. VAGINALIS (test code = 20944) NEGATIVE NEGATIVE UNLESS OTHERWISE INDICATED, ALL TESTING PERFORMED [facility] [address] [place] [id number] REGIONAL OWNER OPERATOR TRUCK DRIVER: TERRI MCCRARY M.D. CLIA NUMBER [id number] [place]. [id number] HIV 1/2 4TH GEN, RFLX [id number] 05:59:23* Test Item Value Reference Range Interpretation Comme [facility] HIV 1/2 4TH GEN, RFLX CONF ( test code = 3514) NON-REACTIVE NON-REACTIVE HEPATITIS PANEL, [id number] 05:59:23* Test Item Value Reference Range Interpretation Comme [facility] HEPATITIS A IgM (test code = 02361) NON-REACTIVE NON-REACTIVE HEPATITIS B CORE IgM (test code = 4644) NON-REACTIVE NON-REACTIVE HEPATITIS B SURF AG (test code = 2739) NON-REACTIVE NON-REACTIVE HEPATITIS C ANTIBODY (test code = 4675) NON-REACTIVE NON-REACTIVE INTERPRETATION HEPATITIS A: (test code = 2552) (NOTE) Hepatitis A serology shows no evidence of acute hepatitis A. INTERPRETATION HEPATITIS B: (test code = 45625) (NOTE) Hepatitis B serology shows no evidence of acute hepatitis B andno indication of exposure to hepatitis B virus in the previous kiko eight months. INTERPRETATION HEPATITIS C: (test code = 97448) (NOTE) Hepatitis C serology shows no evidence of exposure to hepatitisC virus at this time. It can take up to 12 months after exposure tothe hepatitis C virus for antibodies to become detectable in the blood in certain patients. [id number] 05:28:14* Test Item Value Reference Range Interpretation Comme nts RPR RESULT (test code = 3501) NON-REACTIVE NON-REACTIVE RPR TITER (test code = 3500) NOT INDIC. TITER NOT INDIC. HIV AB/AG COMBO RFLX [id number] 00:00:00* Test Item Value Reference Range Interpretation Comme nts HIV 1/2 4TH GEN, RFLX CONF ( test code = 3514) NON-REACTIVE Azam RaphaelACUTE HEPATITIS [id number] 00:00:00* Test Item Value Reference Range Interpretation Comme nts HEPATITIS A IgM (test code = 97065) NON-REACTIVE HEPATITIS B CORE IgM (test c ode = 4644) NON-REACTIVE HEPATITIS B SURF AG (test co de = 2739) NON-REACTIVE HEPATITIS C ANTIBODY (test c ode = 4675) NON-REACTIVE INTERPRETATION HEPATITIS A: (test code = 2552) (NOTE) INTERPRETATION HEPATITIS B: (test code = 88663) (NOTE) INTERPRETATION HEPATITIS C: (test code = 24774) (NOTE) Azam [id number] 00:00:00* Test Item Value Reference Range Interpretation Comme nts RPR RESULT (test code = 3501) NON-REACTIVE RPR TITER (test code = 3500) NOT INDIC. TITER Azam RaphaelHPV HIGH RISK WITH GENOTYPE, [id number] 00:00:00* Test Item Value Reference Range Interpretation Comme nts HPV HIGH RISK INTERP (test c ode = 83614) POSITIVE HPV 16 (test code = 54841) NEGATIVE HPV 18 (test code = 00616) NEGATIVE HPV, HR, OTHER GENOTYPES (te st code = 35513) POSITIVE Azam RaphaelVAGINAL PATHOGENS DNA PANEL [ADDED]2021-08-16 00:00:00* Test Item Value Reference Range Interpretation Comme nts DWIGHT SPECIES (test code = ) NEGATIVE G. VAGINALIS (test code = ) POSITIVE T. VAGINALIS (test code = ) NEGATIVE Azam RaphaelHIV AB/AG COMBO RFLX [id number] 00:00:00* Test Item Value Reference Range Interpretation Comme nts HIV 1/2 4TH GEN, RFLX CONF ( test code = 3514) NON-REACTIVE Azam RaphaelGC AND CHLAMYDIA AMPLIFIED, [id number] 00:00:00* Test Item Value Reference Range Interpretation Comme nts GONORRHEA, TMA (test code = 75763) NEGATIVE CHLAMYDIA, TMA (test code = 11107) NEGATIVE Azam RaphaelACUTE HEPATITIS [id number] 00:00:00* Test Item Value Reference Range Interpretation Comme nts HEPATITIS A IgM (test code = 08213) NON-REACTIVE HEPATITIS B CORE IgM (test c ode = 4644) NON-REACTIVE HEPATITIS B SURF AG (test co de = 2739) NON-REACTIVE HEPATITIS C ANTIBODY (test c ode = 4675) NON-REACTIVE INTERPRETATION HEPATITIS A: (test code = 2552) (NOTE) INTERPRETATION HEPATITIS B: (test code = 20207) (NOTE) INTERPRETATION HEPATITIS C: (test code = 88162) (NOTE) Azam [id number] 00:00:00* Test Item Value Reference Range Interpretation Comme nts RPR RESULT (test code = 3501) NON-REACTIVE RPR TITER (test code = 3500) NOT INDIC. TITER Azam RaphaelHPV HIGH RISK WITH GENOTYPE, [id number] 00:00:00* Test Item Value Reference Range Interpretation Comme nts HPV HIGH RISK INTERP (test c ode = 94222) POSITIVE HPV 16 (test code = 13793) NEGATIVE HPV 18 (test code = 98287) NEGATIVE HPV, HR, OTHER GENOTYPES (te st code = 94515) POSITIVE Azam RaphaelVAGINAL PATHOGENS DNA PANEL [ADDED]2021-08-16 00:00:00* Test Item Value Reference Range Interpretation Comme nts DWIGHT SPECIES (test code = ) NEGATIVE G. VAGINALIS (test code = 61034) POSITIVE T. VAGINALIS (test code = 91452) NEGATIVE Azam RaphaelGC AND CHLAMYDIA AMPLIFIED, [id number] 00:00:00* Test Item Value Reference Range Interpretation Comme nts GONORRHEA, TMA (test code = 63112) NEGATIVE CHLAMYDIA, TMA (test code = 13525) NEGATIVE Azam RaphaelHIV AB/AG COMBO RFLX [id number] 00:00:00* Test Item Value Reference Range Interpretation Comme nts HIV 1/2 4TH GEN, RFLX CONF ( test code = 3514) NON-REACTIVE Azam RaphaelACUTE HEPATITIS [id number] 00:00:00* Test Item Value Reference Range Interpretation Comme nts HEPATITIS A IgM (test code = 33037) NON-REACTIVE HEPATITIS B CORE IgM (test c ode = 4644) NON-REACTIVE HEPATITIS B SURF AG (test co de = 2739) NON-REACTIVE HEPATITIS C ANTIBODY (test c ode = 4610) NON-REACTIVE INTERPRETATION HEPATITIS A: (test code = 2552) (NOTE) INTERPRETATION HEPATITIS B: (test code = 23045) (NOTE) INTERPRETATION HEPATITIS C: (test code = 52328) (NOTE) Azam [id number] 00:00:00* Test Item Value Reference Range Interpretation Comme nts RPR RESULT (test code = 3501) NON-REACTIVE RPR TITER (test code = 3500) NOT INDIC. TITER Azam RaphaelHPV HIGH RISK WITH GENOTYPE, [id number] 00:00:00* Test Item Value Reference Range Interpretation Comme nts HPV HIGH RISK INTERP (test c ode = 29949) POSITIVE HPV 16 (test code = 75039) NEGATIVE HPV 18 (test code = 30349) NEGATIVE HPV, HR, OTHER GENOTYPES (te st code = 99899) POSITIVE Azam RaphaelVAGINAL PATHOGENS DNA PANEL [ADDED]2021-08-16 00:00:00* Test Item Value Reference Range Interpretation Comme nts DWIGHT SPECIES (test code = 90190) NEGATIVE G. VAGINALIS (test code = 14320) POSITIVE T. VAGINALIS (test code = 27339) NEGATIVE Azam RaphaelGC AND CHLAMYDIA AMPLIFIED, [id number] 00:00:00* Test Item Value Reference Range Interpretation Comme nts GONORRHEA, TMA (test code = 38810) NEGATIVE CHLAMYDIA, TMA (test code = 99540) NEGATIVE Azam RaphaelHIV AB/AG COMBO RFLX [id number] 00:00:00* Test Item Value Reference Range Interpretation Comme nts HIV 1/2 4TH GEN, RFLX CONF ( test code = 3514) NON-REACTIVE Azam RaphaelACUTE HEPATITIS [id number] 00:00:00* Test Item Value Reference Range Interpretation Comme nts HEPATITIS A IgM (test code = 30038) NON-REACTIVE HEPATITIS B CORE IgM (test c ode = 4644) NON-REACTIVE HEPATITIS B SURF AG (test co de = 2739) NON-REACTIVE HEPATITIS C ANTIBODY (test c ode = 4675) NON-REACTIVE INTERPRETATION HEPATITIS A: (test code = 2552) (NOTE) INTERPRETATION HEPATITIS B: (test code = 14868) (NOTE) INTERPRETATION HEPATITIS C: (test code = 02238) (NOTE) Azam [id number] 00:00:00* Test Item Value Reference Range Interpretation Comme nts RPR RESULT (test code = 3501) NON-REACTIVE RPR TITER (test code = 3500) NOT INDIC. TITER Azam RaphaelHPV HIGH RISK WITH GENOTYPE, [id number] 00:00:00* Test Item Value Reference Range Interpretation Comme nts HPV HIGH RISK INTERP (test c ode = 47672) POSITIVE HPV 16 (test code = 30230) NEGATIVE HPV 18 (test code = 19822) NEGATIVE HPV, HR, OTHER GENOTYPES (te st code = 52157) POSITIVE Azam RaphaelVAGINAL PATHOGENS DNA PANEL [ADDED]2021-08-16 00:00:00* Test Item Value Reference Range Interpretation Comme nts DWIGHT SPECIES (test code = 36624) NEGATIVE G. VAGINALIS (test code = 08254) POSITIVE T. VAGINALIS (test code = 90614) NEGATIVE Azam RaphaelGC AND CHLAMYDIA AMPLIFIED, [id number] 00:00:00* Test Item Value Reference Range Interpretation Comme nts GONORRHEA, TMA (test code = 21873) NEGATIVE CHLAMYDIA, TMA (test code = 88570) NEGATIVE Azam RaphaelHIV AB/AG COMBO RFLX [id number] 00:00:00* Test Item Value Reference Range Interpretation Comme nts HIV 1/2 4TH GEN, RFLX CONF ( test code = 3514) NON-REACTIVE GC AND CHLAMYDIA AMPLIFIED, [id number] 00:00:00* Test Item Value Reference Range Interpretation Comme nts GONORRHEA, TMA (test code = 00512) NEGATIVE CHLAMYDIA, TMA (test code = 66883) NEGATIVE ACUTE HEPATITIS [id number] 00:00:00* Test Item Value Reference Range Interpretation Comme nts HEPATITIS A IgM (test code = 16726) NON-REACTIVE HEPATITIS B CORE IgM (test c ode = 4644) NON-REACTIVE HEPATITIS B SURF AG (test co de = 2739) NON-REACTIVE HEPATITIS C ANTIBODY (test c ode = 4675) NON-REACTIVE INTERPRETATION HEPATITIS A: (test code = 2552) (NOTE) INTERPRETATION HEPATITIS B: (test code = 25263) (NOTE) INTERPRETATION HEPATITIS C: (test code = 13489) (NOTE) HPV HIGH RISK WITH GENOTYPE, [id number] 00:00:00* Test Item Value Reference Range Interpretation Comme nts HPV HIGH RISK INTERP (test c ode = 82370) POSITIVE HPV 16 (test code = 47169) NEGATIVE HPV 18 (test code = 04711) NEGATIVE HPV, HR, OTHER GENOTYPES (te st code = 18063) POSITIVE [id number] 00:00:00* Test Item Value Reference Range Interpretation Comme nts RPR RESULT (test code = 3501) NON-REACTIVE RPR TITER (test code = 3500) NOT INDIC. TITER VAGINAL PATHOGENS DNA PANEL [ADDED]2021-08-16 00:00:00* Test Item Value Reference Range Interpretation Comme nts DWIGHT SPECIES (test code = 38785) NEGATIVE G. VAGINALIS (test code = 99661) POSITIVE T. VAGINALIS (test code = 91320) NEGATIVE HIV AB/AG COMBO RFLX [id number] 00:00:00* Test Item Value Reference Range Interpretation Comme nts HIV 1/2 4TH GEN, RFLX CONF ( test code = 3514) NON-REACTIVE GC AND CHLAMYDIA AMPLIFIED, [id number] 00:00:00* Test Item Value Reference Range Interpretation Comme nts GONORRHEA, TMA (test code = 07802) NEGATIVE CHLAMYDIA, TMA (test code = 08204) NEGATIVE ACUTE HEPATITIS [id number] 00:00:00* Test Item Value Reference Range Interpretation Comme nts HEPATITIS A IgM (test code = 21831) NON-REACTIVE HEPATITIS B CORE IgM (test c ode = 4644) NON-REACTIVE HEPATITIS B SURF AG (test co de = 2739) NON-REACTIVE HEPATITIS C ANTIBODY (test c ode = 4675) NON-REACTIVE INTERPRETATION HEPATITIS A: (test code = 2552) (NOTE) INTERPRETATION HEPATITIS B: (test code = 26248) (NOTE) INTERPRETATION HEPATITIS C: (test code = 36232) (NOTE) [id number] 00:00:00* Test Item Value Reference Range Interpretation Comme nts RPR RESULT (test code = 3501) NON-REACTIVE RPR TITER (test code = 3500) NOT INDIC. TITER HPV HIGH RISK WITH GENOTYPE, [id number] 00:00:00* Test Item Value Reference Range Interpretation Comme nts HPV HIGH RISK INTERP (test c ode = 81824) POSITIVE HPV 16 (test code = 06947) NEGATIVE HPV 18 (test code = 46441) NEGATIVE HPV, HR, OTHER GENOTYPES (te st code = 20533) POSITIVE VAGINAL PATHOGENS DNA PANEL [ADDED]2021-08-16 00:00:00* Test Item Value Reference Range Interpretation Comme nts DWIGHT SPECIES (test code = 22802) NEGATIVE G. VAGINALIS (test code = 49457) POSITIVE T. VAGINALIS (test code = 90573) NEGATIVE HIV AB/AG COMBO RFLX [id number] 00:00:00* Test Item Value Reference Range Interpretation Comme nts HIV 1/2 4TH GEN, RFLX CONF ( test code = 3514) NON-REACTIVE GC AND CHLAMYDIA AMPLIFIED, [id number] 00:00:00* Test Item Value Reference Range Interpretation Comme nts GONORRHEA, TMA (test code = 76435) NEGATIVE CHLAMYDIA, TMA (test code = 36396) NEGATIVE ACUTE HEPATITIS [id number] 00:00:00* Test Item Value Reference Range Interpretation Comme nts HEPATITIS A IgM (test code = 42894) NON-REACTIVE HEPATITIS B CORE IgM (test c ode = 4644) NON-REACTIVE HEPATITIS B SURF AG (test co de = 2739) NON-REACTIVE HEPATITIS C ANTIBODY (test c ode = 4675) NON-REACTIVE INTERPRETATION HEPATITIS A: (test code = 2552) (NOTE) INTERPRETATION HEPATITIS B: (test code = 47040) (NOTE) INTERPRETATION HEPATITIS C: (test code = 57982) (NOTE) [id number] 00:00:00* Test Item Value Reference Range Interpretation Comme nts RPR RESULT (test code = 3501) NON-REACTIVE RPR TITER (test code = 3500) NOT INDIC. TITER HPV HIGH RISK WITH GENOTYPE, [id number] 00:00:00* Test Item Value Reference Range Interpretation Comme nts HPV HIGH RISK INTERP (test c ode = 98199) POSITIVE HPV 16 (test code = 31527) NEGATIVE HPV 18 (test code = 99559) NEGATIVE HPV, HR, OTHER GENOTYPES (te st code = 83922) POSITIVE VAGINAL PATHOGENS DNA PANEL [ADDED]2021-08-16 00:00:00* Test Item Value Reference Range Interpretation Comme nts DWIGHT SPECIES (test code = ) NEGATIVE G. VAGINALIS (test code = ) POSITIVE T. VAGINALIS (test code = ) NEGATIVE CBC W/AUTO DIFF WITH [id number] 12:09:41* Test Item Value Reference Range Interpretation [...] 0.00-0.10 ABS NUCLEATED RBCS (test code = 08504) 0.00 K/UL 0.00-0.11 TSH, THIRD [id number] 06:48:11* Test Item Value Reference Range Interpretation Comme nts TSH, THIRD GENERATION (test code = 2821) 1.130 UIU/ML 0.400-4.100 UNLESS OTHERWISE INDICATED, ALL TESTING PERFORMED [facility] 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 CLIA NUMBER [id number] [facility] [place]. [id number] LIPID [id number] 06:12:16* Test Item Value Reference Range Interpretation [...] = 2238) 2.13 RATIO <3.22 COMPREHENSIVE METABOLIC [id number] 06:12:16* Test Item Value Reference Range Interpretation Comme nts GLUCOSE (test code = 2217) 89 MG/DL 70-99 BUN (test code = 2207) 12 MG/DL 6-20 CREATININE (test code = 2214) 0.52 MG/DL 0.60-1.30 L eGFR (2020 CKD-EPI) (test code = 35653) 127 ML/MIN/1.73 >60 CALC BUN/CREAT (test code [...] code = 2219) 12 U/L 5-40 LIPID [id number] 00:00:00* Test Item Value Reference Range Interpretation Comme nts CHOLESTEROL (test code = 2210) 192 MG/DL TRIGLYCERIDES (test code = 2232) 78 MG/DL HDL CHOLESTEROL (test code = 2220) 56 MG/DL CALC LDL CHOL (test code = 223) 119 MG/DL RISK RATIO LDL/HDL (test cod e = 2238) 2.13 RATIO Azam F AustinCOMPREHENSIVE METABOLIC [id number] 00:00:00* Test Item Value Reference Range Interpretation Comme nts GLUCOSE (test code = 2217) 89 MG/DL BUN (test code = 2208) 12 MG/DL CREATININE (test code = 2214) 0.52 MG/DL eGFR (2020 CKD-EPI) (test code = ) 127 ML/MIN/1.73 CALC BUN/CREAT (test code = 2235) 23 RATIO SODIUM (test code = 2231) 138 MEQ/L POTASSIUM (test code = 2228) 4.0 MEQ/L CHLORIDE (test code = 2215) 103 MEQ/L CARBON DIOXIDE (test code = 2206) 22 MEQ/L CALCIUM (test code = 2209) 9.6 MG/DL PROTEIN, TOTAL (test code = 222) 7.0 G/DL ALBUMIN (test code = 2201) 4.6 G/DL CALC GLOBULIN (test code = 2240) 2.4 G/DL CALC A/G RATIO (test code = 2234) 1.9 RATIO BILIRUBIN, TOTAL (test code = 2206) 0.6 MG/DL ALKALINE PHOSPHATASE (test code = 2203) 99 U/L AST (test code = 2217) 17 U/L ALT (test code = 221) 12 U/L Azam [id number] 00:00:00* Test Item Value Reference Range Interpretation Comme nts TSH, THIRD GENERATION (test code = 2821) 1.130 UIU/ML Azam RaphaelCBC W/AUTO [id number] 00:00:00* Test Item Value Reference Range Interpretation [...] ABS NUCLEATED RBCS (test cod e = 30946) 0.00 K/UL Azam [place] [id number] 00:00:00* Test Item Value Reference Range Interpretation Comme nts CHOLESTEROL (test code = 2210) 192 MG/DL TRIGLYCERIDES (test code = 2232) 78 MG/DL HDL CHOLESTEROL (test code = 2220) 56 MG/DL CALC LDL CHOL (test code = 2237) 119 MG/DL RISK RATIO LDL/HDL (test cod e = 2238) 2.13 RATIO Azam RaphaelCOMPREHENSIVE METABOLIC [id number] 00:00:00* Test Item Value Reference Range Interpretation Comme nts GLUCOSE (test code = 2217) 89 MG/DL BUN (test code = 2208) 12 MG/DL CREATININE (test code = 2214) 0.52 MG/DL eGFR (2020 CKD-EPI) (test code = 15321) 127 ML/MIN/1.73 CALC BUN/CREAT (test code = [...] (test code = 2219) 12 U/L Azam [id number] 00:00:00* Test Item Value Reference Range Interpretation Comme nts TSH, THIRD GENERATION (test code = 2821) 1.130 UIU/ML Azam RaphaelCBC W/AUTO [id number] 00:00:00* Test Item Value Reference Range Interpretation [...] ABS NUCLEATED RBCS (test cod e = 42189) 0.00 K/UL Azam RaphaelLIPID [id number] 00:00:00* Test Item Value Reference Range Interpretation Comme nts CHOLESTEROL (test code = 2210) 192 MG/DL TRIGLYCERIDES (test code = 2232) 78 MG/DL HDL CHOLESTEROL (test code = 2220) 56 MG/DL CALC LDL CHOL (test code = 2237) 119 MG/DL RISK RATIO LDL/HDL (test cod e = 2238) 2.13 RATIO Azam RaphaelCOMPREHENSIVE METABOLIC [id number] 00:00:00* Test Item Value Reference Range Interpretation Comme nts GLUCOSE (test code = 2217) 89 MG/DL BUN (test code = 2208) 12 MG/DL CREATININE (test code = 2214) 0.52 MG/DL eGFR (2020 CKD-EPI) (test code = 94351) 127 ML/MIN/1.73 CALC BUN/CREAT (test code = [...] (test code = 2219) 12 U/L Azam [id number] 00:00:00* Test Item Value Reference Range Interpretation Comme nts TSH, THIRD GENERATION (test code = 2821) 1.130 UIU/ML Azam RaphaelCBC W/AUTO [id number] 00:00:00* Test Item Value Reference Range Interpretation [...] ABS NUCLEATED RBCS (test cod e = 47173) 0.00 K/UL Azam [place] [id number] 00:00:00* Test Item Value Reference Range Interpretation Comme nts CHOLESTEROL (test code = 2210) 192 MG/DL TRIGLYCERIDES (test code = 2232) 78 MG/DL HDL CHOLESTEROL (test code = 2220) 56 MG/DL CALC LDL CHOL (test code = 2237) 119 MG/DL RISK RATIO LDL/HDL (test cod e = 2238) 2.13 RATIO Azam RaphaelCOMPREHENSIVE METABOLIC [id number] 00:00:00* Test Item Value Reference Range Interpretation Comme nts GLUCOSE (test code = 2217) 89 MG/DL BUN (test code = 2208) 12 MG/DL CREATININE (test code = 2214) 0.52 MG/DL eGFR (2020 CKD-EPI) (test code = 12462) 127 ML/MIN/1.73 CALC BUN/CREAT (test code = [...] (test code = 2219) 12 U/L Azam [id number] 00:00:00* Test Item Value Reference Range Interpretation Comme nts TSH, THIRD GENERATION (test code = 2821) 1.130 UIU/ML Azam [place] W/AUTO [id number] 00:00:00* Test Item Value Reference Range Interpretation [...] ABS NUCLEATED RBCS (test cod e = 10685) 0.00 K/UL Azam [place] W/AUTO [id number] 00:00:00* Test Item Value Reference Range Interpretation [...] ABS NUCLEATED RBCS (test cod e = 90661) 0.00 K/UL LIPID [id number] 00:00:00* Test Item Value Reference Range Interpretation Comme nts CHOLESTEROL (test code = 2210) 192 MG/DL TRIGLYCERIDES (test code = 2232) 78 MG/DL HDL CHOLESTEROL (test code = 2220) 56 MG/DL CALC LDL CHOL (test code = 2237) 119 MG/DL RISK RATIO LDL/HDL (test cod e = 2238) 2.13 RATIO COMPREHENSIVE METABOLIC [id number] 00:00:00* Test Item Value Reference Range Interpretation Comme nts GLUCOSE (test code = 2217) 89 MG/DL BUN (test code = 2208) 12 MG/DL CREATININE (test code = 2214) 0.52 MG/DL eGFR (2020 CKD-EPI) (test code = 47091) 127 ML/MIN/1.73 CALC BUN/CREAT (test code = [...] ALT (test code = 2219) 12 U/L [id number] 00:00:00* Test Item Value Reference Range Interpretation Comme nts TSH, THIRD GENERATION (test code = 2821) 1.130 UIU/ML CBC W/AUTO [id number] 00:00:00* Test Item Value Reference Range Interpretation [...] ABS NUCLEATED RBCS (test cod e = 87691) 0.00 K/UL LIPID [id number] 00:00:00* Test Item Value Reference Range Interpretation Comme nts CHOLESTEROL (test code = 2210) 192 MG/DL TRIGLYCERIDES (test code = 2232) 78 MG/DL HDL CHOLESTEROL (test code = 2220) 56 MG/DL CALC LDL CHOL (test code = 2237) 119 MG/DL RISK RATIO LDL/HDL (test cod e = 2238) 2.13 RATIO COMPREHENSIVE METABOLIC [id number] 00:00:00* Test Item Value Reference Range Interpretation Comme nts GLUCOSE (test code = 2217) 89 MG/DL BUN (test code = 2208) 12 MG/DL CREATININE (test code = 2214) 0.52 MG/DL eGFR (2020 CKD-EPI) (test code = 29418) 127 ML/MIN/1.73 CALC BUN/CREAT (test code = [...] ALT (test code = 2219) 12 U/L [id number] 00:00:00* Test Item Value Reference Range Interpretation Comme nts TSH, THIRD GENERATION (test code = 2821) 1.130 UIU/ML CBC W/AUTO [id number] 00:00:00* Test Item Value Reference Range Interpretation [...] ABS NUCLEATED RBCS (test cod e = 55916) 0.00 K/UL LIPID [id number] 00:00:00* Test Item Value Reference Range Interpretation Comme nts CHOLESTEROL (test code = 2210) 192 MG/DL TRIGLYCERIDES (test code = 2232) 78 MG/DL HDL CHOLESTEROL (test code = 2220) 56 MG/DL CALC LDL CHOL (test code = 2237) 119 MG/DL RISK RATIO LDL/HDL (test cod e = 2238) 2.13 RATIO COMPREHENSIVE METABOLIC [id number] 00:00:00* Test Item Value Reference Range Interpretation Comme nts GLUCOSE (test code = 2217) 89 MG/DL BUN (test code = 2208) 12 MG/DL CREATININE (test code = 2214) 0.52 MG/DL eGFR (2020 CKD-EPI) (test code = 87076) 127 ML/MIN/1.73 CALC BUN/CREAT (test code = [...] G/DL CALC A/G RATIO (test code = 4) 1.9 RATIO BILIRUBIN, TOTAL (test code = 2206) 0.6 MG/DL ALKALINE PHOSPHATASE (test code = 2203) 99 U/L AST (test code = 2218) 17 U/L ALT (test code = 221) 12 U/L [id number] 00:00:00* Test Item Value Reference Range Interpretation Comme nts TSH, THIRD GENERATION (test code = 2821) 1.130 UIU/ML SARS-CoV-2 (COVID-19) by RT-PCR (HIGH RISK)2021-02-01 00:00:00* Test Item Value Reference Range Interpretation Comme nts SARS-CoV-2 INTERPRETATION (t est code = 59279) NEGATIVE SOURCE (test code = 57854) NOT SPECIFIED Azam Vallejo [id number] (COVID-19) by RT-PCR (HIGH RISK)2021-02-01 00:00:00* Test Item Value Reference Range Interpretation Comme nts SARS-CoV-2 INTERPRETATION (t est code = 85010) NEGATIVE SOURCE (test code = 00732) NOT SPECIFIED Azam Vallejo [id number] (COVID-19) by RT-PCR (HIGH RISK)2021-02-01 00:00:00* Test Item Value Reference Range Interpretation Comme nts SARS-CoV-2 INTERPRETATION (t est code = 30117) NEGATIVE SOURCE (test code = 84333) NOT SPECIFIED Azam Vallejo [id number] (COVID-19) by RT-PCR (HIGH RISK)2021-02-01 00:00:00* Test Item Value Reference Range Interpretation Comme nts SARS-CoV-2 INTERPRETATION (t est code = 94715) NEGATIVE SOURCE (test code = 16947) NOT SPECIFIED Azam RaphaelSARS-CoV-2 (COVID-19) by RT-PCR (HIGH RISK)2021-02-01 00:00:00* Test Item Value Reference Range Interpretation Comme nts SARS-CoV-2 INTERPRETATION (t est code = 71802) NEGATIVE SOURCE (test code = 38156) NOT SPECIFIED SARS-CoV-2 (COVID-19) by RT-PCR (HIGH RISK)2021-02-01 00:00:00* Test Item Value Reference Range Interpretation Comme nts SARS-CoV-2 INTERPRETATION (t est code = 17490) NEGATIVE SOURCE (test code = 62540) NOT SPECIFIED SARS-CoV-2 (COVID-19) by RT-PCR (HIGH RISK)2021-02-01 00:00:00* Test Item Value Reference Range Interpretation Comme nts SARS-CoV-2 INTERPRETATION (t est code = 40187) NEGATIVE SOURCE (test code = 43103) NOT SPECIFIED CBC W/AUTO [id number] 00:00:00* Test Item Value Reference Range Interpretation [...] 1015) 280 K/UL Azam Vallejo DonavonCOMPREHENSIVE METABOLIC [id number] 00:00:00* Test Item Value Reference Range Interpretation Comme nts GLUCOSE (test code = 2217) 112 MG/DL BUN (test code = 2208) 14 MG/DL CREATININE (test code = 2214) 0.90 MG/DL eGFR AMER. (test cod e = 25551) 99 ML/MIN/1.73 eGFR NON- AMER. (test code = 87465) 85 ML/MIN/1.73 CALC BUN/CREAT (test code = [...] (test code = 2219) 22 U/L Azam [id number] 00:00:00* Test Item Value Reference Range Interpretation Comme nts TSH, THIRD GENERATION (test code = 2821) 1.640 UIU/ML Azam RaphaelTRICHOMONAS, URINE, [id number] 00:00:00* Test Item Value Reference Range Interpretation Comme nts TRICHOMONAS, NAAT (test code = 57547) NEGATIVE Azam Vallejo DonavonCBC W/AUTO [id number] 00:00:00* Test Item Value Reference Range Interpretation [...] (test code = 1015) 280 K/UL Azam RahpaelCOMPREHENSIVE METABOLIC [id number] 00:00:00* Test Item Value Reference Range Interpretation Comme nts GLUCOSE (test code = 2217) 112 MG/DL BUN (test code = 2208) 14 MG/DL CREATININE (test code = 2214) 0.90 MG/DL eGFR AMER. (test cod e = 14792) 99 ML/MIN/1.73 eGFR NON- AMER. (test code = 24058) 85 ML/MIN/1.73 CALC BUN/CREAT (test code = [...] (test code = 2219) 22 U/L Azam [id number] 00:00:00* Test Item Value Reference Range Interpretation Comme nts TSH, THIRD GENERATION (test code = 2821) 1.640 UIU/ML Azam RaphaelTRICHOMONAS, URINE, [id number] 00:00:00* Test Item Value Reference Range Interpretation Comme nts TRICHOMONAS, NAAT (test code = 03883) NEGATIVE Azam RaphaelCBC W/AUTO [id number] 00:00:00* Test Item Value Reference Range Interpretation [...] = 1015) 280 K/UL Azam RaphaelCOMPREHENSIVE METABOLIC [id number] 00:00:00* Test Item Value Reference Range Interpretation Comme nts GLUCOSE (test code = 2217) 112 MG/DL BUN (test code = 2208) 14 MG/DL CREATININE (test code = 2214) 0.90 MG/DL eGFR AMER. (test cod e = 20432) 99 ML/MIN/1.73 eGFR NON- AMER. (test code = 28667) 85 ML/MIN/1.73 CALC BUN/CREAT (test code = [...] (test code = 2219) 22 U/L Azam [id number] 00:00:00* Test Item Value Reference Range Interpretation Comme nts TSH, THIRD GENERATION (test code = 2821) 1.640 UIU/ML Azam RaphaelTRICHOMONAS, URINE, [id number] 00:00:00* Test Item Value Reference Range Interpretation Comme nts TRICHOMONAS, NAAT (test code = 06842) NEGATIVE Azam RaphaelCBC W/AUTO [id number] 00:00:00* Test Item Value Reference Range Interpretation [...] = 1015) 280 K/UL Azam RaphaelCOMPREHENSIVE METABOLIC [id number] 00:00:00* Test Item Value Reference Range Interpretation Comme nts GLUCOSE (test code = 2217) 112 MG/DL BUN (test code = 2208) 14 MG/DL CREATININE (test code = 2214) 0.90 MG/DL eGFR AMER. (test cod e = 98196) 99 ML/MIN/1.73 eGFR NON- AMER. (test code = 15024) 85 ML/MIN/1.73 CALC BUN/CREAT (test code = [...] (test code = 2219) 22 U/L Azam [id number] 00:00:00* Test Item Value Reference Range Interpretation Comme nts TSH, THIRD GENERATION (test code = 2821) 1.640 UIU/ML Azam RaphaelTRICHOMONAS, URINE, [id number] 00:00:00* Test Item Value Reference Range Interpretation Comme nts TRICHOMONAS, NAAT (test code = 75293) NEGATIVE Azam RaphaelCBC W/AUTO [id number] 00:00:00* Test Item Value Reference Range Interpretation [...] code = 1015) 280 K/UL COMPREHENSIVE METABOLIC [id number] 00:00:00* Test Item Value Reference Range Interpretation Comme nts GLUCOSE (test code = 2217) 112 MG/DL BUN (test code = 2208) 14 MG/DL CREATININE (test code = 2214) 0.90 MG/DL eGFR AMER. (test cod e = 91758) 99 ML/MIN/1.73 eGFR NON- AMER. (test code = 62922) 85 ML/MIN/1.73 CALC BUN/CREAT (test code = [...] ALT (test code = 2219) 22 U/L [id number] 00:00:00* Test Item Value Reference Range Interpretation Comme nts TSH, THIRD GENERATION (test code = 2821) 1.640 UIU/ML TRICHOMONAS, URINE, [id number] 00:00:00* Test Item Value Reference Range Interpretation Comme nts TRICHOMONAS, NAAT (test code = 69322) NEGATIVE CBC W/AUTO [id number] 00:00:00* Test Item Value Reference Range Interpretation [...] code = 1015) 280 K/UL COMPREHENSIVE METABOLIC [id number] 00:00:00* Test Item Value Reference Range Interpretation Comme nts GLUCOSE (test code = 7) 112 MG/DL BUN (test code = 8) 14 MG/DL CREATININE (test code = 2214) 0.90 MG/DL eGFR AMER. (test cod e = 95846) 99 ML/MIN/1.73 eGFR NON- AMER. (test code = 74588) 85 ML/MIN/1.73 CALC BUN/CREAT (test code = [...] ALT (test code = 2219) 22 U/L [id number] 00:00:00* Test Item Value Reference Range Interpretation Comme nts TSH, THIRD GENERATION (test code = 2821) 1.640 UIU/ML TRICHOMONAS, URINE, [id number] 00:00:00* Test Item Value Reference Range Interpretation Comme nts TRICHOMONAS, NAAT (test code = 21427) NEGATIVE CBC W/AUTO [id number] 00:00:00* Test Item Value Reference Range Interpretation [...] code = 1015) 280 K/UL COMPREHENSIVE METABOLIC [id number] 00:00:00* Test Item Value Reference Range Interpretation Comme nts GLUCOSE (test code = 2217) 112 MG/DL BUN (test code = 2208) 14 MG/DL CREATININE (test code = 2214) 0.90 MG/DL eGFR AMER. (test cod e = 74203) 99 ML/MIN/1.73 eGFR NON- AMER. (test code = 65544) 85 ML/MIN/1.73 CALC BUN/CREAT (test code = [...] ALT (test code = 2219) 22 U/L [id number] 00:00:00* Test Item Value Reference Range Interpretation Comme nts TSH, THIRD GENERATION (test code = 2821) 1.640 UIU/ML TRICHOMONAS, URINE, [id number] 00:00:00* Test Item Value Reference Range Interpretation Comme nts TRICHOMONAS, NAAT (test code = 80538) NEGATIVE NOTE: [ADDED]2020-06-23 00:00:00* Test Item Value [...] NOTE: (test code = 998) (NOTE) CULTURE, [id number] 00:00:00* Test Item Value Reference Range Interpretation Comme nts CULTURE, URINE (test code = 38926) SPECIMEN NUMBER: [id number] Azam CristinaLTURE, [id number] 00:00:00* Test Item Value Reference Range Interpretation Comme nts CULTURE, URINE (test code = 34761) SPECIMEN NUMBER: [id number] Azam RaphaelCULTURE, [id number] 00:00:00* Test Item Value Reference Range Interpretation Comme nts CULTURE, URINE (test code = 72650) SPECIMEN NUMBER: [id number] Azam RaphaelCULTURE, [id number] 00:00:00* Test Item Value Reference Range Interpretation Comme nts CULTURE, URINE (test code = 21173) SPECIMEN NUMBER: [id number] Azam CristinaLTURE, [id number] 00:00:00* Test Item Value Reference Range Interpretation Comme nts CULTURE, URINE (test code = 18094) SPECIMEN NUMBER: [id number] CULTURE, [id number] 00:00:00* Test Item Value Reference Range Interpretation Comme nts CULTURE, URINE (test code = 37921) SPECIMEN NUMBER: [id number] CULTURE, [id number] 00:00:00* Test Item Value Reference Range Interpretation Comme nts CULTURE, URINE (test code = 54482) SPECIMEN NUMBER: [id number] HIV AB/AG COMBO RFLX [id number] 00:00:00* Test Item Value Reference Range Interpretation Comme nts HIV 1/2 4TH GEN, RFLX CONF ( test code = 3514) NON-REACTIVE Azam Vallejo AustinRPR REFLEX TO [id number] 00:00:00* Test Item Value Reference Range Interpretation Comme nts RPR (test code = 74613) NON-REACTIVE RPR TITER (test code = 3500) [...] (NOTE) INTERPRETATION HEPATITIS B: (test code = 31271) (NOTE) INTERPRETATION HEPATITIS C: (test code = 66905) (NOTE) Azam Vallejo AustinHEPATITIS A IgM [REFLEX]2020-06-21 00:00:00* Test Item Value Reference Range Interpretation Comme nts HEPATITIS A IgM (test code = 2728) NON-REACTIVE Azam Vallejo AustinGC AND CHLAMYDIA, AMPLIFIED, [id number] 00:00:00* Test Item Value Reference Range Interpretation Comme nts GONORRHEA, NAAT (test code = 29200) NEGATIVE CHLAMYDIA, NAAT (test code = 73995) NEGATIVE Azam Vallejo AustinHIV AB/AG COMBO RFLX [id number] 00:00:00* Test Item Value Reference Range Interpretation Comme nts HIV 1/2 4TH GEN, RFLX CONF ( test code = 3514) NON-REACTIVE Azam Vallejo AustinRPR REFLEX TO [id number] 00:00:00* Test Item Value Reference Range Interpretation Comme nts RPR (test code = 73604) NON-REACTIVE RPR TITER (test code = 3500) [...] (NOTE) INTERPRETATION HEPATITIS B: (test code = 69822) (NOTE) INTERPRETATION HEPATITIS C: (test code = 76503) (NOTE) Azam Vallejo AustinHEPATITIS A IgM [REFLEX]2020-06-21 00:00:00* Test Item Value Reference Range Interpretation Comme nts HEPATITIS A IgM (test code = 2728) NON-REACTIVE Azam Vallejo AustinGC AND CHLAMYDIA, AMPLIFIED, [id number] 00:00:00* Test Item Value Reference Range Interpretation Comme nts GONORRHEA, NAAT (test code = 78391) NEGATIVE CHLAMYDIA, NAAT (test code = 45278) NEGATIVE Azam Vallejo AustinHIV AB/AG COMBO RFLX [id number] 00:00:00* Test Item Value Reference Range Interpretation Comme nts HIV 1/2 4TH GEN, RFLX CONF ( test code = 3514) NON-REACTIVE Azam Vallejo AustinRPR REFLEX TO [id number] 00:00:00* Test Item Value Reference Range Interpretation Comme nts RPR (test code = 80746) NON-REACTIVE RPR TITER (test code = 3500) [...] (NOTE) INTERPRETATION HEPATITIS B: (test code = 10005) (NOTE) INTERPRETATION HEPATITIS C: (test code = 28550) (NOTE) Azam Vallejo AustinHEPATITIS A IgM [REFLEX]2020-06-21 00:00:00* Test Item Value Reference Range Interpretation Comme nts HEPATITIS A IgM (test code = 2728) NON-REACTIVE Azam Vallejo AustinGC AND CHLAMYDIA, AMPLIFIED, [id number] 00:00:00* Test Item Value Reference Range Interpretation Comme nts GONORRHEA, NAAT (test code = 97221) NEGATIVE CHLAMYDIA, NAAT (test code = 23729) NEGATIVE Azam Vallejo AustinHIV AB/AG COMBO RFLX [id number] 00:00:00* Test Item Value Reference Range Interpretation Comme nts HIV 1/2 4TH GEN, RFLX CONF ( test code = 3514) NON-REACTIVE Azam Vallejo AustinRPR REFLEX TO [id number] 00:00:00* Test Item Value Reference Range Interpretation Comme nts RPR (test code = 56236) NON-REACTIVE RPR TITER (test code = 3500) [...] (NOTE) INTERPRETATION HEPATITIS B: (test code = 92909) (NOTE) INTERPRETATION HEPATITIS C: (test code = 91383) (NOTE) Azam RaphaelHEPATITIS A IgM [REFLEX]2020-06-21 00:00:00* Test Item Value Reference Range Interpretation Comme nts HEPATITIS A IgM (test code = 2728) NON-REACTIVE Azam RaphaelGC AND CHLAMYDIA, AMPLIFIED, [id number] 00:00:00* Test Item Value Reference Range Interpretation Comme nts GONORRHEA, NAAT (test code = 47569) NEGATIVE CHLAMYDIA, NAAT (test code = 70444) NEGATIVE Azam RaphaelGC AND CHLAMYDIA, AMPLIFIED, [id number] 00:00:00* Test Item Value Reference Range Interpretation Comme nts GONORRHEA, NAAT (test code = 79205) NEGATIVE CHLAMYDIA, NAAT (test code = 09413) NEGATIVE HIV AB/AG COMBO RFLX [id number] 00:00:00* Test Item Value Reference Range Interpretation Comme nts HIV 1/2 4TH GEN, RFLX CONF ( test code = 3514) NON-REACTIVE RPR REFLEX TO [id number] 00:00:00* Test Item Value Reference Range Interpretation Comme nts RPR (test code = 87214) NON-REACTIVE RPR TITER (test code = 3500) [...] (NOTE) INTERPRETATION HEPATITIS B: (test code = 34951) (NOTE) INTERPRETATION HEPATITIS C: (test code = 47802) (NOTE) HEPATITIS A IgM [REFLEX]2020-06-21 00:00:00* Test Item Value Reference Range Interpretation Comme nts HEPATITIS A IgM (test code = 2728) NON-REACTIVE GC AND CHLAMYDIA, AMPLIFIED, [id number] 00:00:00* Test Item Value Reference Range Interpretation Comme nts GONORRHEA, NAAT (test code = 84467) NEGATIVE CHLAMYDIA, NAAT (test code = 80917) NEGATIVE HIV AB/AG COMBO RFLX [id number] 00:00:00* Test Item Value Reference Range Interpretation Comme nts HIV 1/2 4TH GEN, RFLX CONF ( test code = 3514) NON-REACTIVE RPR REFLEX TO [id number] 00:00:00* Test Item Value Reference Range Interpretation Comme nts RPR (test code = 17425) NON-REACTIVE RPR TITER (test code = 3500) [...] (NOTE) INTERPRETATION HEPATITIS B: (test code = 18780) (NOTE) INTERPRETATION HEPATITIS C: (test code = 35972) (NOTE) HEPATITIS A IgM [REFLEX]2020-06-21 00:00:00* Test Item Value Reference Range Interpretation Comme nts HEPATITIS A IgM (test code = 2728) NON-REACTIVE GC AND CHLAMYDIA, AMPLIFIED, [id number] 00:00:00* Test Item Value Reference Range Interpretation Comme nts GONORRHEA, NAAT (test code = 10173) NEGATIVE CHLAMYDIA, NAAT (test code = 95351) NEGATIVE HIV AB/AG COMBO RFLX [id number] 00:00:00* Test Item Value Reference Range Interpretation Comme nts HIV 1/2 4TH GEN, RFLX CONF ( test code = 3514) NON-REACTIVE RPR REFLEX TO [id number] 00:00:00* Test Item Value Reference Range Interpretation Comme nts RPR (test code = 12326) NON-REACTIVE RPR TITER (test code = 3500) [...] (NOTE) INTERPRETATION HEPATITIS B: (test code = 04814) (NOTE) INTERPRETATION HEPATITIS C: (test code = 61358) (NOTE) HEPATITIS A IgM [REFLEX]2020-06-21 00:00:00* Test Item Value Reference Range Interpretation Comme nts HEPATITIS A IgM (test code = 2728) NON-REACTIVE VAGINAL PATHOGENS DNA [id number] 00:00:00* Test Item Value Reference Range Interpretation Comme nts DWIGHT SPECIES (test code = 78451) NEGATIVE G. VAGINALIS (test code = 82968) POSITIVE T. VAGINALIS (test code = 67803) NEGATIVE Azam RaphaelHIV AB/AG COMBO RFLX [id number] 00:00:00* Test Item Value Reference Range Interpretation Comme nts HIV 1/2 4TH GEN, RFLX CONF ( test code = 3514) NON-REACTIVE Azam [id number] 00:00:00* Test Item Value Reference Range Interpretation Comme nts RPR RESULT (test code = 3501) NON-REACTIVE RPR TITER (test code = 3500) NOT INDIC. TITER Azam F AustinGC AND CHLAMYDIA, AMPLIFIED, [id number] 00:00:00* Test Item Value Reference Range Interpretation Comme nts GONORRHEA, NAAT (test code = 45144) NEGATIVE CHLAMYDIA, NAAT (test code = 55921) NEGATIVE Azam Vallejo AustinVAGINAL PATHOGENS DNA [id number] 00:00:00* Test Item Value Reference Range Interpretation Comme nts DWIGHT SPECIES (test code = ) NEGATIVE G. VAGINALIS (test code = 36174) POSITIVE T. VAGINALIS (test code = 01957) NEGATIVE Azam Vallejo AustinHIV AB/AG COMBO RFLX [id number] 00:00:00* Test Item Value Reference Range Interpretation Comme nts HIV 1/2 4TH GEN, RFLX CONF ( test code = 3514) NON-REACTIVE Azam Vallejo [id number] 00:00:00* Test Item Value Reference Range Interpretation Comme nts RPR RESULT (test code = 3501) NON-REACTIVE RPR TITER (test code = 3500) NOT INDIC. TITER Azam Vallejo AustinGC AND CHLAMYDIA, AMPLIFIED, [id number] 00:00:00* Test Item Value Reference Range Interpretation Comme nts GONORRHEA, NAAT (test code = 09985) NEGATIVE CHLAMYDIA, NAAT (test code = 55725) NEGATIVE Azam RaphaelVAGINAL PATHOGENS DNA [id number] 00:00:00* Test Item Value Reference Range Interpretation Comme nts DWIGHT SPECIES (test code = ) NEGATIVE G. VAGINALIS (test code = 69159) POSITIVE T. VAGINALIS (test code = 44700) NEGATIVE Azam Vallejo AustinHIV AB/AG COMBO RFLX [id number] 00:00:00* Test Item Value Reference Range Interpretation Comme nts HIV 1/2 4TH GEN, RFLX CONF ( test code = 3514) NON-REACTIVE Azam Vallejo [id number] 00:00:00* Test Item Value Reference Range Interpretation Comme nts RPR RESULT (test code = 3501) NON-REACTIVE RPR TITER (test code = 3500) NOT INDIC. TITER Azam Vallejo AustinGC AND CHLAMYDIA, AMPLIFIED, [id number] 00:00:00* Test Item Value Reference Range Interpretation Comme nts GONORRHEA, NAAT (test code = 14324) NEGATIVE CHLAMYDIA, NAAT (test code = 59482) NEGATIVE Azam Vallejo AustinVAGINAL PATHOGENS DNA [id number] 00:00:00* Test Item Value Reference Range Interpretation Comme nts DWIGHT SPECIES (test code = ) NEGATIVE G. VAGINALIS (test code = 73124) POSITIVE T. VAGINALIS (test code = 84130) NEGATIVE Azam RaphaelHIV AB/AG COMBO RFLX [id number] 00:00:00* Test Item Value Reference Range Interpretation Comme nts HIV 1/2 4TH GEN, RFLX CONF ( test code = 3514) NON-REACTIVE Azam Vallejo [id number] 00:00:00* Test Item Value Reference Range Interpretation Comme nts RPR RESULT (test code = 3501) NON-REACTIVE RPR TITER (test code = 3500) NOT INDIC. TITER Azam Vallejo AustinGC AND CHLAMYDIA, AMPLIFIED, [id number] 00:00:00* Test Item Value Reference Range Interpretation Comme nts GONORRHEA, NAAT (test code = 05045) NEGATIVE CHLAMYDIA, NAAT (test code = 09911) NEGATIVE Azam RaphaelVAGINAL PATHOGENS DNA [id number] 00:00:00* Test Item Value Reference Range Interpretation Comme nts DWIGHT SPECIES (test code = ) NEGATIVE G. VAGINALIS (test code = 51812) POSITIVE T. VAGINALIS (test code = 36636) NEGATIVE HIV AB/AG COMBO RFLX [id number] 00:00:00* Test Item Value Reference Range Interpretation Comme nts HIV 1/2 4TH GEN, RFLX CONF ( test code = 3514) NON-REACTIVE [id number] 00:00:00* Test Item Value Reference Range Interpretation Comme nts RPR RESULT (test code = 3501) NON-REACTIVE RPR TITER (test code = 3500) NOT INDIC. TITER GC AND CHLAMYDIA, AMPLIFIED, [id number] 00:00:00* Test Item Value Reference Range Interpretation Comme nts GONORRHEA, NAAT (test code = 56561) NEGATIVE CHLAMYDIA, NAAT (test code = 54715) NEGATIVE VAGINAL PATHOGENS DNA [id number] 00:00:00* Test Item Value Reference Range Interpretation Comme nts DWIGHT SPECIES (test code = ) NEGATIVE G. VAGINALIS (test code = 32646) POSITIVE T. VAGINALIS (test code = 62956) NEGATIVE HIV AB/AG COMBO RFLX [id number] 00:00:00* Test Item Value Reference Range Interpretation Comme nts HIV 1/2 4TH GEN, RFLX CONF ( test code = 3514) NON-REACTIVE [id number] 00:00:00* Test Item Value Reference Range Interpretation Comme nts RPR RESULT (test code = 3501) NON-REACTIVE RPR TITER (test code = 3500) NOT INDIC. TITER GC AND CHLAMYDIA, AMPLIFIED, [id number] 00:00:00* Test Item Value Reference Range Interpretation Comme nts GONORRHEA, NAAT (test code = 31084) NEGATIVE CHLAMYDIA, NAAT (test code = 86065) NEGATIVE VAGINAL PATHOGENS DNA [id number] 00:00:00* Test Item Value Reference Range Interpretation Comme nts DWIGHT SPECIES (test code = ) NEGATIVE G. VAGINALIS (test code = 59097) POSITIVE T. VAGINALIS (test code = 84540) NEGATIVE HIV AB/AG COMBO RFLX [id number] 00:00:00* Test Item Value Reference Range Interpretation Comme nts HIV 1/2 4TH GEN, RFLX CONF ( test code = 3514) NON-REACTIVE [id number] 00:00:00* Test Item Value Reference Range Interpretation Comme nts RPR RESULT (test code = 3501) NON-REACTIVE RPR TITER (test code = 3500) NOT INDIC. TITER GC AND CHLAMYDIA, AMPLIFIED, [id number] 00:00:00* Test Item Value Reference Range Interpretation Comme nts GONORRHEA, NAAT (test code = 84663) NEGATIVE CHLAMYDIA, NAAT (test code = 62647) NEGATIVE GC AND CHLAMYDIA, AMPLIFIED, [id number] 00:00:00* Test Item Value Reference Range Interpretation Comme nts GONORRHEA, TMA (test code = 26787) NEGATIVE CHLAMYDIA, TMA (test code = 71243) NEGATIVE Azam F AustinGC AND CHLAMYDIA, AMPLIFIED, [id number] 00:00:00* Test Item Value Reference Range Interpretation Comme nts GONORRHEA, TMA (test code = 59064) NEGATIVE CHLAMYDIA, TMA (test code = 36005) NEGATIVE Azam F AustinGC AND CHLAMYDIA, AMPLIFIED, [id number] 00:00:00* Test Item Value Reference Range Interpretation Comme nts GONORRHEA, TMA (test code = 60767) NEGATIVE CHLAMYDIA, TMA (test code = 72304) NEGATIVE Azam F AustinGC AND CHLAMYDIA, AMPLIFIED, [id number] 00:00:00* Test Item Value Reference Range Interpretation Comme nts GONORRHEA, TMA (test code = 58529) NEGATIVE CHLAMYDIA, TMA (test code = 06778) NEGATIVE Azam F AustinGC AND CHLAMYDIA, AMPLIFIED, [id number] 00:00:00* Test Item Value Reference Range Interpretation Comme nts GONORRHEA, TMA (test code = 98287) NEGATIVE CHLAMYDIA, TMA (test code = 81175) NEGATIVE GC AND CHLAMYDIA, AMPLIFIED, [id number] 00:00:00* Test Item Value Reference Range Interpretation Comme nts GONORRHEA, TMA (test code = 42491) NEGATIVE CHLAMYDIA, TMA (test code = 79659) NEGATIVE GC AND CHLAMYDIA, AMPLIFIED, [id number] 00:00:00* Test Item Value Reference Range Interpretation Comme nts GONORRHEA, TMA (test code = 53181) NEGATIVE CHLAMYDIA, TMA (test code = 62136) NEGATIVE PAP TEST, THINPREP, [id number] 00:00:00* Test Item Value Reference Range Interpretation Comme nts SOURCE: (test code = 8001) Cervical/Endocervical SLIDES: (test code = 8011) 1 LMP: (test code = 8021) 08/19/2018 SPECIMEN ADEQUACY: (test code = 60032) (NOTE) INTERPRETATION: (test code = 44895) NILM/NO EPITH. ABNORMALITY;SEE BELOW WINDOW CLERK: (test code = 8101) HAYLIE MATIAS(ASCP)IAC LOCATION: (test code = 87401) (NOTE) CPT: (test code = 8140) (NOTE) Azam F AustinGC AND CHLAMYDIA AMPLIFIED, [id number] 00:00:00* Test Item Value Reference Range Interpretation Comme nts GONORRHEA, TMA (test code = 02357) TEST NOT PERFORMED CHLAMYDIA, TMA (test code = 94607) TEST NOT PERFORMED Azam F AustinPAP TEST, THINPREP, [id number] 00:00:00* Test Item Value Reference Range Interpretation Comme nts SOURCE: (test code = 8001) Cervical/Endocervical SLIDES: (test code = 8011) 1 LMP: (test code = 8021) 08/19/2018 SPECIMEN ADEQUACY: (test code = 25222) (NOTE) INTERPRETATION: (test code = 48445) NILM/NO EPITH. ABNORMALITY;SEE BELOW WINDOW CLERK: (test code = 8101) RUSSELL PARISABELCT(ASCP)IAC LOCATION: (test code = 74928) (NOTE) CPT: (test code = 8140) (NOTE) Azam F AustinGC AND CHLAMYDIA AMPLIFIED, [id number] 00:00:00* Test Item Value Reference Range Interpretation Comme nts GONORRHEA, TMA (test code = 92422) TEST NOT PERFORMED CHLAMYDIA, TMA (test code = 18989) TEST NOT PERFORMED Azam F AustinPAP TEST, THINPREP, [id number] 00:00:00* Test Item Value Reference Range Interpretation Comme nts SOURCE: (test code = 8001) Cervical/Endocervical SLIDES: (test code = 8011) 1 LMP: (test code = 8021) 08/19/2018 SPECIMEN ADEQUACY: (test code = 32797) (NOTE) INTERPRETATION: (test code = 34454) NILM/NO EPITH. ABNORMALITY;SEE BELOW WINDOW CLERK: (test code = 8101) RUSSELL MASONCT(ASCP)IAC LOCATION: (test code = 66985) (NOTE) CPT: (test code = 8140) (NOTE) Azam F AustinGC AND CHLAMYDIA AMPLIFIED, [id number] 00:00:00* Test Item Value Reference Range Interpretation Comme nts GONORRHEA, TMA (test code = 04246) TEST NOT PERFORMED CHLAMYDIA, TMA (test code = 22452) TEST NOT PERFORMED Azam F AustinPAP TEST, THINPREP, [id number] 00:00:00* Test Item Value Reference Range Interpretation Comme nts SOURCE: (test code = 8001) Cervical/Endocervical SLIDES: (test code = 8011) 1 LMP: (test code = 8021) 08/19/2018 SPECIMEN ADEQUACY: (test code = 17656) (NOTE) INTERPRETATION: (test code = 39641) NILM/NO EPITH. ABNORMALITY;SEE BELOW WINDOW CLERK: (test code = 8101) RUSSELL PARISABEL,CT(ASCP)IAC LOCATION: (test code = 45640) (NOTE) CPT: (test code = 8140) (NOTE) Azam RaphaelGC AND CHLAMYDIA AMPLIFIED, [id number] 00:00:00* Test Item Value Reference Range Interpretation Comme nts GONORRHEA, TMA (test code = 63423) TEST NOT PERFORMED CHLAMYDIA, TMA (test code = 18298) TEST NOT PERFORMED Azam RaphaelGC AND CHLAMYDIA AMPLIFIED, [id number] 00:00:00* Test Item Value Reference Range Interpretation Comme nts GONORRHEA, TMA (test code = 56299) TEST NOT PERFORMED CHLAMYDIA, TMA (test code = 54022) TEST NOT PERFORMED PAP TEST, THINPREP, [id number] 00:00:00* Test Item Value Reference Range Interpretation Comme nts SOURCE: (test code = 8001) Cervical/Endocervical SLIDES: (test code = 8011) 1 LMP: (test code = 8021) 08/19/2018 SPECIMEN ADEQUACY: (test code = 74789) (NOTE) INTERPRETATION: (test code = 14595) NILM/NO EPITH. ABNORMALITY;SEE BELOW WINDOW CLERK: (test code = 8101) RUSSELL PARISABEL,CT(ASCP)IAC LOCATION: (test code = 55451) (NOTE) CPT: (test code = 8140) (NOTE) PAP TEST, THINPREP, [id number] 00:00:00* Test Item Value Reference Range Interpretation Comme nts SOURCE: (test code = 8001) Cervical/Endocervical SLIDES: (test code = 8011) 1 LMP: (test code = 8021) 08/19/2018 SPECIMEN ADEQUACY: (test code = 80147) (NOTE) INTERPRETATION: (test code = 26948) NILM/NO EPITH. ABNORMALITY;SEE BELOW WINDOW CLERK: (test code = 8101) RUSSELL PARCHER,CT(ASCP)IAC LOCATION: (test code = 62069) (NOTE) CPT: (test code = 8140) (NOTE) GC AND CHLAMYDIA AMPLIFIED, [id number] 00:00:00* Test Item Value Reference Range Interpretation Comme nts GONORRHEA, TMA (test code = 38586) TEST NOT PERFORMED CHLAMYDIA, TMA (test code = 88691) TEST NOT PERFORMED GC AND CHLAMYDIA AMPLIFIED, [id number] 00:00:00* Test Item Value Reference Range Interpretation Comme nts GONORRHEA, TMA (test code = 96940) TEST NOT PERFORMED CHLAMYDIA, TMA (test code = 89022) TEST NOT PERFORMED PAP TEST, THINPREP, [id number] 00:00:00* Test Item Value Reference Range Interpretation Comme nts SOURCE: (test code = 8001) Cervical/Endocervical SLIDES: (test code = 8011) 1 LMP: (test code = 8021) 08/19/2018 SPECIMEN ADEQUACY: (test code = 46454) (NOTE) INTERPRETATION: (test code = 98435) NILM/NO EPITH. ABNORMALITY;SEE BELOW WINDOW CLERK: (test code = 8101) HAYLIE MATIAS(ASCP)IAC LOCATION: (test code = 84106) (NOTE) CPT: (test code = 8140) (NOTE) HPV HIGH RISK WITH GENOTYPE, [id number] 00:00:00* Test Item Value Reference Range Interpretation Comme [facility] HPV HIGH RISK INTERP (test c ode = 57642) NEGATIVE HPV 16 (test code = 16256) NEGATIVE HPV 18 (test code = 36856) NEGATIVE HPV, HR, OTHER GENOTYPES (te st code = 78213) NEGATIVE Azam Vallejo DonavonHIV AB/AG COMBO RFLX [id number] 00:00:00* Test Item Value Reference Range Interpretation Comme [facility] HIV 1/2 4TH GEN, RFLX CONF ( test code = 3514) NON-REACTIVE Azam RaphaelACUTE HEPATITIS [id number] 00:00:00* Test Item Value Reference Range Interpretation Comme [facility] HEPATITIS A IgM (test code = 79277) NON-REACTIVE HEPATITIS B CORE IgM (test c ode = 4644) NON-REACTIVE HEPATITIS B SURF AG (test co de = 1009) NON-REACTIVE HEPATITIS C ANTIBODY (test c ode = 4675) NON-REACTIVE HCV INDEX (test code = 64805) 0.11 INTERPRETATION HEPATITIS A: (test code = 2552) (NOTE) INTERPRETATION HEPATITIS B: (test code = 55626) (NOTE) INTERPRETATION HEPATITIS C: (test code = 96975) (NOTE) Azam [id number] 00:00:00* Test Item Value Reference Range Interpretation Comme nts RPR RESULT (test code = 3501) NON-REACTIVE RPR TITER (test code = 3500) NOT INDIC. TITER Azam Vallejo AustinHPV HIGH RISK WITH GENOTYPE, [id number] 00:00:00* Test Item Value Reference Range Interpretation Comme nts HPV HIGH RISK INTERP (test c ode = 74790) NEGATIVE HPV 16 (test code = 48609) NEGATIVE HPV 18 (test code = 30068) NEGATIVE HPV, HR, OTHER GENOTYPES (te st code = 95831) NEGATIVE Azam RaphaelHIV AB/AG COMBO RFLX [id number] 00:00:00* Test Item Value Reference Range Interpretation Comme nts HIV 1/2 4TH GEN, RFLX CONF ( test code = 3514) NON-REACTIVE Azam RaphaelACUTE HEPATITIS [id number] 00:00:00* Test Item Value Reference Range Interpretation Comme nts HEPATITIS A IgM (test code = 33257) NON-REACTIVE HEPATITIS B CORE IgM (test c ode = 4644) NON-REACTIVE HEPATITIS B SURF AG (test co de = 2739) NON-REACTIVE HEPATITIS C ANTIBODY (test c ode = 4675) NON-REACTIVE HCV INDEX (test code = 18138) 0.11 INTERPRETATION HEPATITIS A: (test code = 2552) (NOTE) INTERPRETATION HEPATITIS B: (test code = 44748) (NOTE) INTERPRETATION HEPATITIS C: (test code = 68366) (NOTE) Azam [id number] 00:00:00* Test Item Value Reference Range Interpretation Comme nts RPR RESULT (test code = 3501) NON-REACTIVE RPR TITER (test code = 3500) NOT INDIC. TITER Azam RaphaelHIV AB/AG COMBO RFLX [id number] 00:00:00* Test Item Value Reference Range Interpretation Comme nts HIV 1/2 4TH GEN, RFLX CONF ( test code = 3514) NON-REACTIVE Azam RaphaelHPV HIGH RISK WITH GENOTYPE, [id number] 00:00:00* Test Item Value Reference Range Interpretation Comme nts HPV HIGH RISK INTERP (test c ode = 93964) NEGATIVE HPV 16 (test code = 66342) NEGATIVE HPV 18 (test code = 39552) NEGATIVE HPV, HR, OTHER GENOTYPES (te st code = 26538) NEGATIVE Azam RaphaelACUTE HEPATITIS [id number] 00:00:00* Test Item Value Reference Range Interpretation Comme nts HEPATITIS A IgM (test code = 08521) NON-REACTIVE HEPATITIS B CORE IgM (test c ode = 4644) NON-REACTIVE HEPATITIS B SURF AG (test co de = 2739) NON-REACTIVE HEPATITIS C ANTIBODY (test c ode = 4675) NON-REACTIVE HCV INDEX (test code = 89467) 0.11 INTERPRETATION HEPATITIS A: (test code = 2552) (NOTE) INTERPRETATION HEPATITIS B: (test code = 63783) (NOTE) INTERPRETATION HEPATITIS C: (test code = 62166) (NOTE) Azam [id number] 00:00:00* Test Item Value Reference Range Interpretation Comme nts RPR RESULT (test code = 3501) NON-REACTIVE RPR TITER (test code = 3500) NOT INDIC. TITER Azam RaphaelHIV AB/AG COMBO RFLX [id number] 00:00:00* Test Item Value Reference Range Interpretation Comme nts HIV 1/2 4TH GEN, RFLX CONF ( test code = 3514) NON-REACTIVE Azam Vallejo AustinHPV HIGH RISK WITH GENOTYPE, [id number] 00:00:00* Test Item Value Reference Range Interpretation Comme nts HPV HIGH RISK INTERP (test c ode = 52070) NEGATIVE HPV 16 (test code = 34830) NEGATIVE HPV 18 (test code = 38916) NEGATIVE HPV, HR, OTHER GENOTYPES (te st code = 13436) NEGATIVE Azam RaphaelACUTE HEPATITIS [id number] 00:00:00* Test Item Value Reference Range Interpretation Comme nts HEPATITIS A IgM (test code = 52748) NON-REACTIVE HEPATITIS B CORE IgM (test c ode = 4644) NON-REACTIVE HEPATITIS B SURF AG (test co de = 2739) NON-REACTIVE HEPATITIS C ANTIBODY (test c ode = 4675) NON-REACTIVE HCV INDEX (test code = 01377) 0.11 INTERPRETATION HEPATITIS A: (test code = 2552) (NOTE) INTERPRETATION HEPATITIS B: (test code = 97862) (NOTE) INTERPRETATION HEPATITIS C: (test code = 91299) (NOTE) Azam Vallejo [id number] 00:00:00* Test Item Value Reference Range Interpretation Comme nts RPR RESULT (test code = 3501) NON-REACTIVE RPR TITER (test code = 3500) NOT INDIC. TITER Azam Vallejo [id number] 00:00:00* Test Item Value Reference Range Interpretation Comme nts RPR RESULT (test code = 3501) NON-REACTIVE RPR TITER (test code = 3500) NOT INDIC. TITER HIV AB/AG COMBO RFLX [id number] 00:00:00* Test Item Value Reference Range Interpretation Comme nts HIV 1/2 4TH GEN, RFLX CONF ( test code = 3514) NON-REACTIVE HPV HIGH RISK WITH GENOTYPE, [id number] 00:00:00* Test Item Value Reference Range Interpretation Comme nts HPV HIGH RISK INTERP (test c ode = 56443) NEGATIVE HPV 16 (test code = 22130) NEGATIVE HPV 18 (test code = 98469) NEGATIVE HPV, HR, OTHER GENOTYPES (te st code = 43267) NEGATIVE ACUTE HEPATITIS [id number] 00:00:00* Test Item Value Reference Range Interpretation Comme nts HEPATITIS A IgM (test code = 55398) NON-REACTIVE HEPATITIS B CORE IgM (test c ode = 4644) NON-REACTIVE HEPATITIS B SURF AG (test co de = 2739) NON-REACTIVE HEPATITIS C ANTIBODY (test c ode = 4675) NON-REACTIVE HCV INDEX (test code = 27748) 0.11 INTERPRETATION HEPATITIS A: (test code = 2552) (NOTE) INTERPRETATION HEPATITIS B: (test code = 01770) (NOTE) INTERPRETATION HEPATITIS C: (test code = 89316) (NOTE) [id number] 00:00:00* Test Item Value Reference Range Interpretation Comme nts RPR RESULT (test code = 3501) NON-REACTIVE RPR TITER (test code = 3500) NOT INDIC. TITER HIV AB/AG COMBO RFLX [id number] 00:00:00* Test Item Value Reference Range Interpretation Comme nts HIV 1/2 4TH GEN, RFLX CONF ( test code = 3514) NON-REACTIVE HPV HIGH RISK WITH GENOTYPE, [id number] 00:00:00* Test Item Value Reference Range Interpretation Comme [facility] HPV HIGH RISK INTERP (test c ode = 27388) NEGATIVE HPV 16 (test code = 57128) NEGATIVE HPV 18 (test code = 73617) NEGATIVE HPV, HR, OTHER GENOTYPES (te st code = 65463) NEGATIVE ACUTE HEPATITIS [id number] 00:00:00* Test Item Value Reference Range Interpretation Comme nts HEPATITIS A IgM (test code = 68036) NON-REACTIVE HEPATITIS B CORE IgM (test c ode = 4644) NON-REACTIVE HEPATITIS B SURF AG (test co de = 2739) NON-REACTIVE HEPATITIS C ANTIBODY (test c ode = 4675) NON-REACTIVE HCV INDEX (test code = 10149) 0.11 INTERPRETATION HEPATITIS A: (test code = 2552) (NOTE) INTERPRETATION HEPATITIS B: (test code = 58970) (NOTE) INTERPRETATION HEPATITIS C: (test code = 90435) (NOTE) [id number] 00:00:00* Test Item Value Reference Range Interpretation Comme nts RPR RESULT (test code = 3501) NON-REACTIVE RPR TITER (test code = 3500) NOT INDIC. TITER HPV HIGH RISK WITH GENOTYPE, [id number] 00:00:00* Test Item Value Reference Range Interpretation Comme [facility] HPV HIGH RISK INTERP (test c ode = 42385) NEGATIVE HPV 16 (test code = 99509) NEGATIVE HPV 18 (test code = 39003) NEGATIVE HPV, HR, OTHER GENOTYPES (te st code = 67448) NEGATIVE HIV AB/AG COMBO RFLX [id number] 00:00:00* Test Item Value Reference Range Interpretation Comme nts HIV 1/2 4TH GEN, RFLX CONF ( test code = 3514) NON-REACTIVE ACUTE HEPATITIS [id number] 00:00:00* Test Item Value Reference Range Interpretation Comme nts HEPATITIS A IgM (test code = 89513) NON-REACTIVE HEPATITIS B CORE IgM (test c ode = 4644) NON-REACTIVE HEPATITIS B SURF AG (test co de = 2739) NON-REACTIVE HEPATITIS C ANTIBODY (test c ode = 4675) NON-REACTIVE HCV INDEX (test code = 35656) 0.11 INTERPRETATION HEPATITIS A: (test code = 2552) (NOTE) INTERPRETATION HEPATITIS B: (test code = 97441) (NOTE) INTERPRETATION HEPATITIS C: (test code = 51622) (NOTE)"
== END ==
LOC: ER 16:54
DX: Z02.9 Encounter for administrative examinations, unspecified (principal)